=== PATIENT | female | born 1945 | race Caucasian/White ===

== ENCOUNTER → 2017-03-07 | Outpatient (CLI) | payer MEDICARE ==
[~2017-03-07] MED LIST: 2% Viscous Xylocaine MT; AMLO2.5T PO; AMLO5TAB2 PO; AMOX250S5 PO; ATEN50TA PO; CALC1TAB PO; CALTRATE 600 +1 EACH PO; CATHETER FLUSH 10 ML SYR IV PRN; CYAN250010 PO; DABI75CA3 PO; ENXP80I.8 SC; FISH OIL 500 M1 EACH PO; FLT05NA16 NS; FLT05NA16 NSEACH; FLT22013 INH; HYDR-3583 PO; HYDR15SO8 PO; LISI10TA2 PO; LORA10TA7 PO; MULT-223 PO; MULT-974 PO; MULT1TAB12 PO; OMEG1CAP51 PO; OMEP20TA2 PO; OMEP40CA36 PO; OMG1KC PO; REGADENOSON 0.4 MG/5 ML SYR (LEXISCAN) IV ONE; SIMV40TA4 PO; SMV20T PO; WARF-48 PO; WRF5T PO
[2017-03-07 13:05] VITALS: BP 154/74
[2017-03-07 13:09] VITALS: BP 135/54
[2017-03-07 13:11] VITALS: BP 153/71
--- NOTE | 2017-03-08 11:09 | ECHOCARDIOGRAPHY REPORT ---
DATE OF SERVICE: 03/07/2017 DATE OF PROCEDURE: 03/07/2017. ORDERING PHYSICIAN: Rosey Mulligan APRN. PRIMARY CARE PHYSICIAN: Dr. Arias. OTHER PHYSICIAN: Dr. Dorman. CLINICAL DIAGNOSES: Coronary artery disease, atrial fibrillation, hypertension. MEASUREMENTS: 1. Left atrium 5. 2. Aortic root 3.1. 3. LV diameter, diastolic 3.6. 4. IVS thickness, diastolic 0.9. 5. LVPW thickness, diastolic 0.9. DESCRIPTION: Two-dimensional echocardiography shows normal global left ventricular systolic function with normal regional wall motion. There is no significant pericardial effusion. The aortic, mitral and tricuspid valve leaflets show good leaflet excursion. There is mild mitral annular calcification. There is mild aortic valve sclerosis. There is marked enlargement of both atria. Doppler imaging shows moderate tricuspid regurgitation. Pulmonary artery systolic pressure is estimated to approximately 40-45 mmHg. Doppler imaging shows mild to moderate mitral regurgitation. There is no Doppler evidence of any significant valvular stenosis. Doppler imaging shows trivial to mild aortic regurgitation. There is no evidence of significant intracardiac shunt on this transthoracic echocardiographic study. Inferior vena cava does not appear to be significantly dilated. CONCLUSIONS: 1. Normal global left ventricular systolic function with ejection fraction approximately 60%. 2. Moderate tricuspid regurgitation. 3. Mild to moderate mitral regurgitation. 4. Trivial to mild aortic regurgitation. 5. Mitral annular calcification and aortic valve sclerosis, mild, without evidence of significant valvular stenosis. 6. Pulmonary artery systolic pressure is estimated to be 40-45 mmHg. 7. Biatrial enlargement. Job ID: [id number] DocumentID: [id number] Dictated Date: 03/07/2017 18:31:45 [employer] Date: 03/08/2017 10:24:18 Dictated By: CLAUDIA DORMAN MD, MA, FACP, FACC,
== END ==
LOC: CARD 09:37
PROVIDERS: ATTEND Nurse Practitioner Family
DX: I25.10 Atherosclerotic heart disease of native coronary artery without angina pectoris (principal); I48.2 Chronic atrial fibrillation; I65.23 Occlusion and stenosis of bilateral carotid arteries; I10 Essential (primary) hypertension; Z79.01 Long term (current) use of anticoagulants
CPT/HCPCS: 78452; 93017; 93306

== ENCOUNTER 2018-08-16 14:13 | Outpatient (CLI) | payer MEDICARE ==
[~2018-08-16] VITALS: Ht 144.8 cm; Wt 49.4 kg
[~2018-08-16 14:13] MED LIST changes: +AMLO2.5T3 PO; -CATHETER FLUSH 10 ML SYR IV PRN; -REGADENOSON 0.4 MG/5 ML SYR (LEXISCAN) IV ONE
[2018-08-16] MEDS ORDERED: ATEN50TA PO (14:41)
[2018-08-16] MEDS ORDERED: WARF-48 PO ×2 (14:43→15:20)
[2018-08-16] MEDS ORDERED: WARF7.5T49 PO (14:43)
[2018-08-16 14:49] VITALS: BP 125/64
[2018-08-16] MEDS ORDERED: AMOX-358 PO (15:20)
[2018-08-16] MEDS ORDERED: FLUT9.9S NSEACH (15:20)
[2018-08-16] MEDS ORDERED: ASPI-586 PO (15:32)
== END 2018-08-16 14:55 | disposition home or self-care (01) ==
LOC: PREOP 14:13
PROVIDERS: ATTEND Specialist
DX: Z01.818 Encounter for other preprocedural examination (principal)
CPT/HCPCS: 87081

== ENCOUNTER 2018-08-20 08:26 | Day surgery (SDC) | payer MEDICARE ==
[~2018-08-20] VITALS: Ht 144.8 cm; Wt 49.4 kg
[~2018-08-20 08:26] MED LIST changes: +AMOX-358 PO; +ASPI-586 PO; +FLUT9.9S NSEACH; +WARF7.5T49 PO
--- OUTSIDE RECORDS SUMMARY | 2018-08-20 08:32 | XMS REPORT | Clinical Summary ---
Author Author [facility] Organization [facility] Address Unknown Phone Unavailable Care Team Providers Care Tram Driver Name Role Phone Hyacinth Arias PCP Source Comments Some departments are not documenting in the electronic medical record. If you do not see the information that you expected, contact Release of Information in the Health Information Management department at [phone] for further assistance in locating additional records.[facility] Allergies No Known Allergies Current Medications Prescription Sig. Disp. Refills Start End Date Status Date atenolol (TENORMIN) 50 mg Take 50 mg by mouth Active tablet daily. lisinopril (PRINIVIL; Take 10 mg by mouth Active ZESTRIL) 10 mg tablet daily. fluticasone (FLONASE) 50 Apply 2 sprays to each Active mcg/actuation nasal spray nostril as directed daily. Shake bottle gently before using. calcium carbonate-vitamin Take 1 tablet by mouth Active D3 (CALTRATE WITH VITAMIN daily. D3) 600 mg(1,500mg) -800 unit tab cyanocobalamin 1,000 mcg Take 1,000 mcg by mouth Active tablet daily. vitamins, multiple cap Take 1 capsule by mouth Active daily. fish oil- omega 3-DHA/EPA Take 1 capsule by mouth Active 300/1,000 mg capsule daily. aspirin EC 81 mg tablet Take 81 mg by mouth Active daily. Take with food. warfarin (COUMADIN) 5 mg 5mg on Wed and Fri 7.5mg Active tablet on Sun, Mon, Tues, Thur, Sat omeprazole DR(+) Take 40 mg by mouth daily Active (PRILOSEC) 40 mg capsule before breakfast. loratadine (CLARITIN) 10 Take 10 mg by mouth every Active mg tablet morning. simvastatin (ZOCOR) 40 mg Take 40 mg by mouth at Active tablet bedtime daily. acetaminophen (TYLENOL) 20.3 mL by Per NG tube 240 mL 0 07/24/20 Active 160 mg/5 mL oral solution route every 4 hours. Max 18 of 4,000 mg of acetaminophen in 24 hours. oxyCODONE (ROXICODONE) 1 5-15 mL by Per NG tube 500 mL 0 07/24/20 Active mg/mL oral solution route every 4 hours as 18 needed Earliest Fill Date: 07/24/18 docusate (COLACE) 50 mg/5 10 mL by Per NG tube 500 mL 0 07/24/20 Active mL oral solution route twice daily. 18 amoxicillin/K clavulanate Take one tablet by mouth 20 tablet 0 08/24/20 Active (AUGMENTIN) 875/125 mg twice daily for 10 days. 18 18 tablet Take with food. HYDROcodone/acetaminophen Take 1 tablet by mouth 07/24/20 Discontin (NORCO) 5/325 mg tablet every 6 hours as needed 18 ued for Pain levoFLOXacin (LEVAQUIN) Take 20 mL by mouth every 200 mL 0 07/31/20 08/10/20 25 mg/mL oral solution 24 hours for 10 days. 18 18 Active Problems Problem Noted Date S/P flap graft 07/31/[address] ([facility]) 07/31/2018 Anemia associated with acute blood loss 07/20/2018 Dysphagia 07/20/2018 Acid reflux 07/19/2018 A-fib ([facility]) 07/19/2018 HTN (hypertension) 07/19/2018 Squamous cell carcinoma 07/17/2018 Tongue cancer ([facility]) 07/02/2018 Encounters Date Type Specialty Care Team Description 08/14/2018 Hospital Radiology Adithya Cook PA-C Arrived Encounter 08/14/2018 Office Visit Otolaryngology Adithya Cook PA-C Shoulder weakness (Primary Dx); Oropharyngeal dysphagia; Squamous cell carcinoma; S/P flap graft; Tracheostomy in place ([facility]) 08/14/2018 Clinical Otolaryngology Alis Ray, Tongue cancer ( [facility]); Support [employer] Oropharyngeal dysphagia 08/01/2018 Telephone Oncology Dolores Mc RN Navigation Follow Up 08/01/2018 Telephone Otolaryngology Adithya Cook PA-C Other (Speak to Nurse) 07/31/2018 Office Visit Otolaryngology Adithya Cook PA-C Oropharyngeal dysphagia (Primary Dx); Tongue cancer (HCC); S/P flap graft; Tracheostomy in place (HCC) 07/30/2018 Telephone Otolaryngology Adithya Cook PA-C Other 07/25/2018 Telephone Otolaryngology Radha Alexandre MD Other 07/24/2018 Office Visit Radiation Therapy Michael Landeros MD Tongue cancer (HCC) (Primary Dx) 07/18/2018 Anesthesia De Gonzales MD Event 07/18/2018 Procedure Pass 07/18/2018 Surgery Radha Alexandre MD EXPLORATION POSTOPERATIVE WOUND - NECK 07/17/2018 Hospital Isaac Flores MD Squamous cell carcinoma - Encounter Radha Alexandre MD 07/24/2018 07/17/2018 Procedure Pass 07/17/2018 Surgery Isaac Flores MD CERVICAL LYMPHADENECTOMY 06/27/2018 PAC Office Anesthesiology Isaac Flores MD Atrial fibrillation, Visit persistent (HCC) (Primary Dx) 06/27/2018 Office Visit Otolaryngology Isaac Flores MD Tongue cancer (HCC) 06/27/2018 Anesthesia Catrachita Heck APRN-ARCADE ATTENDANT Event 06/27/2018 Prep for Case Otolaryngology Isaac Flores MD Oral cancer (HCC) (Primary Dx) 06/15/2018 Ancillary Radiology Outpatient, Radiologist Diagnosis unknown Orders 2018 Hospital Radiology Encounter 2018 Hospital Radiology Encounter 06/06/2018 Telephone Oncology Sharee Mcknight RN Navigation Assessment from Last 3 Months Social History Tobacco Use Types Packs/Day Years Used Date Former Smoker Cigarettes 1.5 50 Quit: 06/27/2008 Smokeless Tobacco: Never Used Alcohol Use Drinks/Week oz/Week Comments Yes 4 Cans of 2.4 beer Sex Assigned at Date Recorded Not on file Last Filed Vital Signs Vital Sign Reading Time Taken Blood Pressure 117/54 08/14/2018 10:06 AM CDT Pulse 59 08/14/2018 10:06 AM CDT Temperature 36.5 C (97.7 F) 07/24/2018 10:01 AM CDT Respiratory Rate - - Oxygen Saturation 97% 07/24/2018 10:01 AM CDT Inhaled Oxygen - - Concentration Weight 50.8 kg (112 lb) 08/14/2018 10:06 AM CDT Height 144.8 cm (4' 9") 08/14/2018 10:06 AM CDT Body Mass Index 24.24 08/14/2018 10:06 AM CDT Plan of Treatment Health Maintenance Due Date Last Done Comments HEPATITIS C SCREENING 1945 PHYSICAL (COMPREHENSIVE) 1952 EXAM PERTUSSIS VACCINE 1956 TETANUS VACCINE 1962 BREAST CANCER SCREENING 1985 COLORECTAL CANCER 1995 SCREENING SHINGLES RECOMBINANT 1995 VACCINE (1 of 2) OSTEOPOROSIS SCREENING 2010 PNEUMONIA (PCV13/PPSV23) 2010 VACCINES (1 of 2 - PCV13) INFLUENZA VACCINE 05/23/2018 Implants Implanted Type Area Hvac Lead Device Expiration Model / Identifier Date Serial / Lot Anesthesiologist Anastomosis 3mm 1 Unit Right: SYNOVIS MICRO 03/29/2023 GEM- [id number] / Microvascular Fast Safe Gold - Neck [employer] [id number] / Implanted: Qty: 1 on 07/17/2018 by [id number] [place] [id number] Procedures Procedure Name Priority Date/Time Associated Diagnosis Comments SWALLOW MOTION SERIES Routine 08/14/2018 Oropharyngeal dysphagia Results for this 9:21 AM CDT procedure are in the results section. PATHOLOGY INTEROPERATIVE 08/08/2018 Results for this REPORT SCAN 12:02 PM CDT procedure are in the results section. ECG-SCAN 07/30/2018 Results for this 5:10 PM CDT procedure are in the results section. ECG-SCAN 07/25/2018 Results for this 11:52 AM CDT procedure are in the results section. TELEMETRY STRIPS-SCAN 07/25/2018 Results for this 11:52 AM CDT procedure are in the results section. PHOSPHORUS Routine 07/24/2018 Results for this 5:41 AM CDT procedure are in the results section. MAGNESIUM Routine 07/24/2018 Results for this 5:41 AM CDT procedure are in the results section. BASIC METABOLIC PANEL Routine 07/24/2018 Results for this 5:41 AM CDT procedure are in the results section. PROTIME INR (PT) Routine 07/24/2018 Results for this 5:41 AM CDT procedure are in the results section. PROTIME INR (PT) Routine 07/23/2018 Results for this 4:19 AM CDT procedure are in the results section. PROTIME INR (PT) Routine 07/22/2018 Results for this 5:19 AM CDT procedure are in the results section. PHOSPHORUS Routine 07/22/2018 Results for this 5:19 AM CDT procedure are in the results section. MAGNESIUM Routine 07/22/2018 Results for this 5:19 AM CDT procedure are in the results section. CBC Routine 07/22/2018 Results for this 5:19 AM CDT procedure are in the results section. BASIC METABOLIC PANEL Routine 07/22/2018 Results for this 5:19 AM CDT procedure are in the results section. PROTIME INR (PT) Routine 07/21/2018 Results for this 11:29 AM CDT procedure are in the results section. PHOSPHORUS Routine 07/21/2018 Results for this 5:32 AM CDT procedure are in the results section. MAGNESIUM Routine 07/21/2018 Results for this 5:32 AM CDT procedure are in the results section. BASIC METABOLIC PANEL Routine 07/21/2018 Results for this 5:32 AM CDT procedure are in the results section. CBC Routine 07/21/2018 Results for this 5:32 AM CDT procedure are in the results section. IR GASTROSTOMY Routine 07/20/2018 Results for this 2:06 PM CDT procedure are in the results section. PHOSPHORUS Routine 07/20/2018 Results for this 4:06 AM CDT procedure are in the results section. MAGNESIUM Routine 07/20/2018 Results for this 4:06 AM CDT procedure are in the results section. BASIC METABOLIC PANEL Routine 07/20/2018 Results for this 4:06 AM CDT procedure are in the results section. CBC Routine 07/20/2018 Results for this 4:06 AM CDT procedure are in the results section. CBC Routine 07/19/2018 Results for this 11:41 AM CDT procedure are in the results section. TRANSFUSE RBC'S Routine 07/19/2018 NON-BLEEDING PT 9:43 AM CDT PHOSPHORUS Routine 07/19/2018 Results for this 4:11 AM CDT procedure are in the results section. MAGNESIUM Routine 07/19/2018 Results for this 4:11 AM CDT procedure are in the results section. BASIC METABOLIC PANEL Routine 07/19/2018 Results for this 4:11 AM CDT procedure are in the results section. CBC Routine 07/19/2018 Results for this 4:11 AM CDT procedure are in the results section. EXPLORATION POSTOPERATIVE 07/18/2018 Tongue cancer (HCC) WOUND - NECK 8:30 AM CDT TRANSFUSE RBC'S Routine 07/18/2018 NON-BLEEDING PT 8:09 AM CDT PHOSPHORUS Routine 07/18/2018 Results for this 4:00 AM CDT procedure are in the results section. MAGNESIUM Routine 07/18/2018 Results for this 4:00 AM CDT procedure are in the results section. BASIC METABOLIC PANEL Routine 07/18/2018 Results for this 4:00 AM CDT procedure are in the results section. CBC Routine 07/18/2018 Results for this 4:00 AM CDT procedure are in the results section. CBC STAT 07/18/2018 Results for this 12:10 AM CDT procedure are in the results section. ABDOMEN AP ONLY STAT 07/17/2018 Results for this 11:42 PM CDT procedure are in the results section. POTASSIUM, BG STAT 07/17/2018 Results for this 7:09 PM CDT procedure are in the results section. SODIUM,BG STAT 07/17/2018 Results for this 7:09 PM CDT procedure are in the results section. IONIZED CALCIUM,BG STAT 07/17/2018 Results for this 7:09 PM CDT procedure are in the results section. GLUCOSE,BG STAT 07/17/2018 Results for this 7:09 PM CDT procedure are in the results section. BLOOD GASES, ARTERIAL STAT 07/17/2018 Results for this 7:09 PM CDT procedure are in the results section. HEMOGLOBIN & HEMATOCRIT, STAT 07/17/2018 Results for this BG 7:09 PM CDT procedure are in the results section. POTASSIUM, BG STAT 07/17/2018 Results for this 3:58 PM CDT procedure are in the results section. SODIUM,BG STAT 07/17/2018 Results for this 3:58 PM CDT procedure are in the results section. IONIZED CALCIUM,BG STAT 07/17/2018 Results for this 3:58 PM CDT procedure are in the results section. GLUCOSE,BG STAT 07/17/2018 Results for this 3:58 PM CDT procedure are in the results section. BLOOD GASES, ARTERIAL STAT 07/17/2018 Results for this 3:58 PM CDT procedure are in the results section. HEMOGLOBIN & HEMATOCRIT, STAT 07/17/2018 Results for this BG 3:58 PM CDT procedure are in the results section. SURGICAL PATHOLOGY 07/17/2018 Results for this 9:13 AM CDT procedure are in the results section. ANESTHESIA ARTERIAL LINE Routine 07/17/2018 Results for this INSERTION 9:08 AM CDT procedure are in the results section. PTT (APTT) Routine 07/17/2018 Results for this 8:08 AM CDT procedure are in the results section. PROTIME INR (PT) Routine 07/17/2018 Results for this 8:08 AM CDT procedure are in the results section. CBC AND DIFF Routine 07/17/2018 Results for this 8:08 AM CDT procedure are in the results section. PHARYNGOPLASTY 07/17/2018 Oral cancer (HCC) 8:00 AM CDT TISSUE TRANSFER MUSCLE/ 07/17/2018 Oral cancer (HCC) MYOCUTANEOUS/ 8:00 AM CDT FASCIOCUTANEOUS FLAP WITH VASCULAR PEDICLE - HEAD/ NECK TISSUE TRANSFER FREE 07/17/2018 Oral cancer (HCC) FASCIAL FLAP WITH 8:00 AM CDT MICROVASCULAR ANASTOMOSIS TISSUE TRANSFER FREE 07/17/2018 Oral cancer (HCC) FASCIAL FLAP WITH 8:00 AM CDT MICROVASCULAR ANASTOMOSIS GLOSSECTOMY/ 07/17/2018 Oral cancer (HCC) HEMIGLOSSECTOMY 8:00 AM CDT CERVICAL LYMPHADENECTOMY 07/17/2018 Oral cancer (HCC) 8:00 AM CDT TYPE & CROSSMATCH STAT 07/17/2018 Atrial fibrillation, Results for this 7:31 AM CDT persistent (HCC) procedure are in the results section. BASIC METABOLIC PANEL STAT 07/17/2018 Results for this 7:31 AM CDT procedure are in the results section. TYPE & SCREEN (NOT Routine 06/27/2018 Atrial fibrillation, Results for this CROSSMATCH ELIGIBLE) 2:02 PM CDT persistent (HCC) procedure are in the results section. BASIC METABOLIC PANEL Routine 06/27/2018 Atrial fibrillation, Results for this 2:02 PM CDT persistent (HCC) procedure are in the results section. CBC Routine 06/27/2018 Atrial fibrillation, Results for this 2:02 PM CDT persistent (HCC) procedure are in the results section. NM PET/CT EXTERNAL Routine 2018 Diagnosis unknown Results for this IMAGING 12:15 AM CDT procedure are in the results section. CT CHEST EXTERNAL IMAGING Routine 2018 Diagnosis unknown Results for this 12:00 AM CDT procedure are in the results section. from Last 3 Months Results * SWALLOW MOTION SERIES (08/14/2018 9:21 AM) Impressions Performed At 1. Episodes of laryngeal penetration without evidence of aspiration. [facility] RESULTS 2. Please see separately dictated report from the Department of Speech Pathology for further description. Approved by Madina Baez M.D. on 08/14/2018 1:24 PM By my electronic signature, I attest that I have personally reviewed the images for this examination and formulated the interpretations and opinions expressed in this report Finalized by Judith Morales M.D. on 08/14/2018 5:18 PM. Dictated by Madina Baez M.D. on 08/14/2018 10:33 AM. Narrative Performed At SWALLOW MOTION SERIES [facility] RESULTS CLINICAL HISTORY: 73-year-old female, oropharyngeal dysphasia. TECHNIQUE: The procedure was performed in conjunction with members of the department of speech pathology. Video fluoroscopy was performed during swallowing of various consistencies of barium. The patient tolerated the procedure well and left the department in stable condition. TOTAL FLUOROSCOPY TIME: 132 seconds FINDINGS: Trace laryngeal penetration with thin and nectar barium. No aspiration was seen with various consistencies of barium throughout the exam. Procedure Note Interface, Radiant Results - 08/14/2018 5:21 PM CDT SWALLOW MOTION SERIES CLINICAL HISTORY: 73-year-old female, oropharyngeal dysphasia. TECHNIQUE: The procedure was performed in conjunction with members of the department of speech pathology. Video fluoroscopy was performed during swallowing of various consistencies of barium. The patient tolerated the procedure well and left the department in stable condition. TOTAL FLUOROSCOPY TIME: 132 seconds FINDINGS: Trace laryngeal penetration with thin and nectar barium. No aspiration was seen with various consistencies of barium throughout the exam. IMPRESSION 1. Episodes of laryngeal penetration without evidence of aspiration. 2. Please see separately dictated report from the Department of Speech Pathology for further description. Approved by Madina Baez M.D. on 08/14/2018 1:24 PM By my electronic signature, I attest that I have personally reviewed the images for this examination and formulated the interpretations and opinions expressed in this report Finalized by Judith Morales M.D. on 08/14/2018 5:18 PM. Dictated by Madina Baez M.D. on 08/14/2018 10:33 AM. Performing Organization Address City/[facility] Phone Number [facility] RESULTS * PATHOLOGY INTEROPERATIVE REPORT SCAN (08/08/2018 12:02 PM) Narrative Performed At Ordered by an unspecified provider. * ECG-SCAN (07/30/2018 5:10 PM) Narrative Performed At Ordered by an unspecified provider. * ECG-SCAN (07/25/2018 11:52 AM) Narrative Performed At Ordered by an unspecified provider. * TELEMETRY STRIPS-SCAN (07/25/2018 11:52 AM) Narrative Performed At Ordered by an unspecified provider. * PROTIME INR (PT) (07/24/2018 5:41 AM) Only the most recent of 5 results within the time period is included. INR 1.1 0.8 - 1.2 MAIN LAB Specimen Blood Performing Organization Address [facility] Phone Number MAIN LAB [address] [place] [address] * PHOSPHORUS (07/24/2018 5:41 AM) Only the most recent of 6 results within the time period is included. Phosphorus 3.9Comment: NOTE NEW REFERENCE 2.0 - 4.5 MG/DL MAIN LAB RANGES Specimen Blood Performing Organization Address [facility] Phone Number MAIN LAB [address] [place] [address] * MAGNESIUM (07/24/2018 5:41 AM) Only the most recent of 6 results within the time period is included. Magnesium 1.8 1.6 - 2.6 mg/dL MAIN LAB Specimen Blood Performing Organization Address [facility] Phone Number MAIN LAB [address] [place] [address] * BASIC METABOLIC PANEL (07/24/2018 5:41 AM) Only the most recent of 8 results within the time period is included. Sodium 131 (L) 137 - 147 MMOL/L MAIN LAB Potassium 4.4 3.5 - 5.1 MMOL/L MAIN LAB Chloride 99 98 - 110 MMOL/L [facility] MA[facility] CO2 25 21 - 30 MMOL/L [facility] MA[facility] Anion Gap 7 3 - 12 [facility] MA[facility] Glucose 110 (H) 70 - 100 MG/DL [facility] MAIN LAB Blood Urea Nitrogen 15 7 - 25 MG/DL [facility] MAIN [facility] Creatinine 0.51 0.4 - 1.00 MG/DL [facility] MAIN [facility] Calcium 8.6 8.5 - 10.6 MG/DL [facility] MAIN [facility] eGFR Non >60 >60 mL/min [facility] Comment: The eGFR is not validated for use in drug dosing adjustments.Continue to use estimated creatinine clearance per dosing reference text.Please contact the Clinical Pharmacist for questions. eGFR >60 >60 mL/min [facility] MAIN [facility] Comment: The eGFR is not validated for use in drug dosing adjustments.Continue to use estimated creatinine clearance per dosing reference text.Please contact the Clinical Pharmacist for questions. Specimen Blood Performing Organization Address City/[facility]/Zipcode Phone Number MAIN LAB [address] [place] [address] * CBC (07/22/2018 5:19 AM) Only the most recent of 8 results within the time period is included. White Blood Cells 6.7 4.5 - 11.0 K/UL [facility] MAIN [facility] RBC 2.90 (L) 4.0 - 5.0 M/UL [facility] MAIN [facility] Hemoglobin 9.3 (L) 12.0 - 15.0 GM/DL [facility] MAIN LAB Hematocrit 27.0 (L) 36 - 45 % [facility] MA[facility] MCV 93.0 80 - 100 FL [facility] MA[facility] MCH 32.0 26 - 34 PG [facility] MCHC 34.4 32.0 - 36.0 G/DL [facility] MAIN [facility] RDW 16.4 (H) 11 - 15 % [facility] MA[facility] Platelet Count 204 150 - 400 K/UL [facility] MAIN [facility] MPV 6.6 (L) 7 - 11 FL [facility] MAIN LAB Specimen Blood Performing Organization Address City/[facility]/Zipcode Phone Number MAIN LAB [address] [place] [address] * IR GASTROSTOMY (07/20/2018 2:06 PM) Impressions Performed At Impression: Gastrostomy feeding tube placement as described above. [facility] RESULTS Agustin Suazo M.D., the attending interventional radiologist, performed the entire procedure, personally reviewed the images, and formulated the interpretations and opinions expressed in this report. @TT Finalized by Agustin Kumar M.D. on 07/20/2018 2:23 PM. Dictated by Agustin Kumar M.D. on 07/20/2018 2:17 PM. Narrative Performed At G Tube placement under fluoroscopy and ultrasound [facility] RAD RESULTS Reason for examination: Dysphagia, long-term feeds needed, oral cancer Radiation dose: 38 mgy Contrast: 20 cc Isovue-300 Sedation: I was personally responsible for the administration of moderate sedation services during the procedure performed and I confirm requirements described in CPT section on moderate sedation were followed, including the use of an independent trained observer who had no other duties during the procedure.The total supervised sedation time was 10 minutes.See nursing log for complete details; the drugs utilized were:2 mg IV Versed, 50 mcg IV fentanyl Procedure: The risks benefits of the procedure explained and informed consent obtained. The patient was placed supine on the fluoroscopic table. The abdomen was prepped and draped in the usual sterile fashion. The left lateral margin of the liver was identified with ultrasound. This area was marked on the patient's skin. The stomach was insufflated with air through the patient's NG tube. The inferior body of the stomach was localized under fluoroscopic guidance. 2 % lidocaine was used to anesthetize the overlying soft tissues. Three gastroplastyneedles were placed in the stomach and the T-fasteners deployed. The stomach wall was then secured against the anterior abdominal wall. Next, a dermatotomy was then created with an 11-blade centrally within the gastroplasty sutures. An 18-gauge needle was then placed through the dermatotomy. A 0.035 Amplatz wire was then placed through the needle and curled in the stomach.A 14 Danish telescoping peel-away sheath was then placed over the wire and the tract dilated. Next, the gastrostomy tube was placed over the wire and through the sheath. The peel-awaysheath then removed. The gastrostomy tube balloon was inflated and pulled against the stomach wall. A small injection of contrast through the gastrostomy tube confirmed appropriate position within the stomach. The gastrostomy tube was then secured in place. The patient tolerated the procedure well and there were no complications. Findings: There is contrast within a nondistended colon from prior barium administration. Following insufflation of air, the colon is displaced downward from the stomach. Following G-tube placement, there is no evidence for contrast extravasation. The tube is positioned well within the lower body of the stomach. Procedure Note Interface, Radiant Results - 07/20/2018 2:26 PM CDT G Tube placement under fluoroscopy and ultrasound Reason for examination: Dysphagia, long-term feeds needed, oral cancer Radiation dose: 38 mgy Contrast: 20 cc Isovue-300 Sedation: I was personally responsible for the administration of moderate sedation services during the procedure performed and I confirm requirements described in CPT section on moderate sedation were followed, including the use of an independent trained observer who had no other duties during the procedure. The total supervised sedation time was 10 minutes. See nursing log for complete details; the drugs utilized were: 2 mg IV Versed, 50 mcg IV fentanyl Procedure: The risks benefits of the procedure explained and informed consent obtained. The patient was placed supine on the fluoroscopic table. The abdomen was prepped and draped in the usual sterile fashion. The left lateral margin of the liver was identified with ultrasound. This area was marked on the patient's skin. The stomach was insufflated with air through the patient's NG tube. The inferior body of the stomach was localized under fluoroscopic guidance. 2% lidocaine was used to anesthetize the overlying soft tissues. Three gastroplasty needles were placed in the stomach and the T-fasteners deployed. The stomach wall was then secured against the anterior abdominal wall. Next, a dermatotomy was then created with an 11-blade centrally within the gastroplasty sutures. An 18-gauge needle was then placed through the dermatotomy. A 0.035 Amplatz wire was then placed through the needle and curled in the stomach. A 14 Danish telescoping peel-away sheath was then placed over the wire and the tract dilated. Next, the gastrostomy tube was placed over the wire and through the sheath. The peel-away sheath then removed. The gastrostomy tube balloon was inflated and pulled against the stomach wall. A small injection of contrast through the gastrostomy tube confirmed appropriate position within the stomach. The gastrostomy tube was then secured in place. The patient tolerated the procedure well and there were no complications. Findings: There is contrast within a nondistended colon from prior barium administration. Following insufflation of air, the colon is displaced downward from the stomach. Following G-tube placement, there is no evidence for contrast extravasation. The tube is positioned well within the lower body of the stomach. IMPRESSION Impression: Gastrostomy feeding tube placement as described above. Agustin Suazo M.D., the attending interventional radiologist, performed the entire procedure, personally reviewed the images, and formulated the interpretations and opinions expressed in this report. @TT Finalized by Agustin Kumar M.D. on 07/20/2018 2:23 PM. Dictated by Agustin Kumar M.D. on 07/20/2018 2:17 PM. Performing Organization Address City/State/Zipcode Phone Number [facility] RAD RESULTS * ABDOMEN AP ONLY (07/17/2018 11:42 PM) Impressions Performed At Intragastric position of the tip of the De Leon type gastric tube. [facility] RESULTS Finalized by Ministerio Simon M.D. on 07/18/2018 8:44 AM. Dictated by Ministerio Simon M.D. on 07/18/2018 8:42 AM. Narrative Performed At Check ngt placement. [facility] RESULTS Technique: Single portable AP supine view of the abdomen was obtained. Comparison: No prior examinations are available.. Findings: The bowel gas pattern is nonobstructive. There is mild fecal retention in the transverse colon, sigmoid colon, and rectum. There is no significant small bowel dilatation. There are atherosclerotic calcifications of the abdominal aorta and iliac vessels. Degenerative changes are present at multiple levels in the lumbar spine. There is a mild left convex upper lumbar scoliosis. 2 surgical drains are present in the left chest wall. A De Leon type gastric tube is in place with its tip directed in the gastric fundus. Note is made of a right hip arthroplasty. There is a temperature probe projected over the low pelvis. Procedure Note Interface, Radiant Results - 07/18/2018 8:47 AM CDT Check ngt placement. Technique: Single portable AP supine view of the abdomen was obtained. Comparison: No prior examinations are available.. Findings: The bowel gas pattern is nonobstructive. There is mild fecal retention in the transverse colon, sigmoid colon, and rectum. There is no significant small bowel dilatation. There are atherosclerotic calcifications of the abdominal aorta and iliac vessels. Degenerative changes are present at multiple levels in the lumbar spine. There is a mild left convex upper lumbar scoliosis. 2 surgical drains are present in the left chest wall. A De Leon type gastric tube is in place with its tip directed in the gastric fundus. Note is made of a right hip arthroplasty. There is a temperature probe projected over the low pelvis. IMPRESSION Intragastric position of the tip of the De Leon type gastric tube. Finalized by Ministerio Simon M.D. on 07/18/2018 8:44 AM. Dictated by Ministerio Simon M.D. on 07/18/2018 8:42 AM. Performing Organization Address [facility] Phone Number RAD RESULTS * GLUCOSE,BG (07/17/2018 7:09 PM) Only the most recent of 2 results within the time period is included. Glucose 154 (H) 70 - 100 MG/DL MAIN LAB Specimen Blood Performing Organization Address [facility] Phone Number MAIN LAB [address] [phone] * SODIUM,BG (07/17/2018 7:09 PM) Only the most recent of 2 results within the time period is included. Sodium 133 (L) 137 - 147 MMOL/L MAIN LAB Specimen Blood Performing Organization Address [facility] Phone Number MAIN LAB [address] [place] [address] * POTASSIUM, BG (07/17/2018 7:09 PM) Only the most recent of 2 results within the time period is included. Potassium 3.8 3.5 - 5.1 MMOL/L MAIN LAB Specimen Blood Performing Organization Address [facility] Phone Number MAIN LAB [address] [place] [address] * IONIZED CALCIUM,BG (07/17/2018 7:09 PM) Only the most recent of 2 results within the time period is included. Ionized Calcium 1.08 1.0 - 1.3 MMOL/L MAIN LAB Specimen Blood Performing Organization Address [facility] Phone Number MAIN LAB [address] [place] [address] * HEMOGLOBIN & HEMATOCRIT, BG (07/17/2018 7:09 PM) Only the most recent of 2 results within the time period is included. Hemoglobin BG 9.0 (L) 12.0 - 15.0 GM/DL [facility] Hematocrit BG 27.8 (L) 36 - 45 % [facility] Specimen Blood Performing Organization Address City/[facility]/Zipcode Phone Number [facility] [address] [phone] * BLOOD GASES, ARTERIAL (07/17/2018 7:09 PM) Only the most recent of 2 results within the time period is included. pH-Arterial 7.43 7.35 - 7.45 [facility] pCO2-Arterial 32 (L) 35 - 45 MMHG [facility] pO2-Arterial 172 (H) 80 - 100 MMHG [facility] Base Deficit-Arterial 2.4 MMOL/L [facility] O2 Sat-Arterial 99.1 (H) 95 - 99 % [facility] Vorootivzom-KNW-Tce 22.4 21 - 28 MMOL/L [facility] Specimen Blood, arterial - Blood Performing Organization Address City/[facility]/Zipcode Phone Number [facility] [address] [phone] * SURGICAL PATHOLOGY (07/17/2018 9:13 AM) PATHOLOGY REPORT [facility] [employer] [facility] [email or web address] Department of Pathology and Laboratory Medicine [address] [place] [address] Surgical Pathology Office:[phone] :[phone] SURGICAL PATHOLOGY REPORT NAME: YEIMY LIMA SURG PATH #: [id number] MR #: [id number] SPECIMEN CLASS: [facility] BILLING #: [id number] ALT ID #:LOCATION: [facility] DATE OF PROCEDURE: 07/17/2018 AGE:73 SEX: F DATE RECEIVED: 07/17/2018 : 1945TIME RECEIVED:: PHYSICIAN: ISAAC FLORES MD DATE OF REPORT: 07/22/2018 COPY TO: RADHA ALEXANDRE DATE OF PRINTIN07/22/2018 ############################## ############################## ############ Final Diagnosis: A. Squamous mucosa, "anterior dorsal tongue mm", excision: Negative for malignancy. B. Squamous mucosa, "posterior dorsal tongue mm", excision: Negative for malignancy. C. Squamous mucosa, "posterior floor of mouth mm", excision: Negative for malignancy. D. Squamous mucosa, "anterior floor of mouth mm", excision: Negative for malignancy. E. Squamous mucosa, "ventral tongue mm", excision: Negative for malignancy. F. Skeletal muscle, "deep margin", excision: Negative for malignancy. G. 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 Margins negative for malignancy. See synoptic report below. H. Lymph nodes (4) and salivary gland, "left level 1 neck", lymph node dissection: There is no evidence of malignancy in four lymph nodes (0/4). Benign submandibular gland. I. Lymph nodes (27), "left neck dissection levels 2,3,4", lymph node dissection: There is no evidence of malignancy in twenty seven lymph nodes (0/27). J. Lymph nodes (3) and salivary gland, "right level 1 neck", lymph node dissection: There is no evidence of malignancy in three lymph nodes (0/3). Benign submandibular gland. K. Lymph nodes (22), "right neck dissection levels 2,3,4", lymph node dissection: There is no evidence of malignancy in twenty-two lymph nodes (0/22). Comment: LIP AND ORAL CAVITY: Excisional Biopsy, Resection CAP Version: Lip Oral Cavity 4.0.0.0 Procedure: Glossectomy (specify): hemiglossectomy Neck (lymph node) dissection (specify): Bilateral neck lymph node dissection, levels 1-4 Tumor Site: Oral Lateral border of tongue (anterior) Tumor Laterality: Left Tumor Focality: Unifocal Tumor Size: Greatest dimension (centimeters): 4.1 cm Additional dimensions (centimeters):3.1 x 1.3 cm Tumor Depth of Invasion (DOI) (millimeters): 8 mm Histologic Type: Squamous Cell Carcinoma, conventional Histologic Grade: G2:Moderately differentiated Tumor Extension Specify: Tumor invades into skeletal muscle of tongue Specimen Margins: Margins on the main composite resection specimen Uninvolved by invasive tumor Distance from closest margin (millimeters):3 mm Specify location of closest margin, per orientation, if possible:Deep Other close margins:All other margins >3mm Uninvolved by high-grade dysplasia/in situ disease Tumor Bed (Separately Submitted) Margins: Uninvolved by invasive tumor Tumor Bed (Separately Submitted) Margin Orientation: Unoriented to true margin surface Lymphovascular Invasion: Not identified Perineural Invasion: Present, intratumoral nerves Worst Pattern of Invasion (WPOI): WPOI 1-4 Lymph Node Examination: Number of Lymph Nodes Involved: 0 Number of Lymph Nodes Examined: 56 Pathologic Stage Classification (pTNM, AJCC 8th Edition): [id number]/ Note: Reporting of pT, pN, and (when applicable) pM categories is based on information available to the pathologist at the time the report is issued. Primary Tumor (pT): pT3:Tumor greater than 4 cm, or any tumor greater than 10 mm DOI Regional Lymph Nodes (pN): pN0: No regional lymph node metastasis Additional Pathologic Findings (select all that apply): Focal acute inflammation Ancillary Studies: None The pathologic stage assigned here should be regarded as provisional, as it reflects only current pathologic data and does not incorporate full knowledge of the patient's clinical status and/or prior pathology. Pursuant to the Support Technician Program at the [facility] Pathology Department, selected slides from this case have been concurrently reviewed by the following pathologist: Dr. Downs, who agrees with the final diagnosis. Attestation: By this signature, I attest that I have personally formulated the final interpretation expressed in this report and that the above diagnosis is based upon my examination of the slides and/or other material indicated in this report. +++ +++ Momo Coello MD Resident lkr/07/17/2018 ############################## ############################## ############ Material Received: A: anterior dorsal tongue mm B: posterior dorsal tongue mm C: posterior floor of mouth mm D: anterior floor of mouth mm E: ventral tongue mm F: deep margin G: left hemiglossectomy; short stitch=anterior, long stitch=dorsal H: left level 1 neck I: left neck dissection levels 2,3,4 J: right level 1 neck K: right neck dissection levels 2,3,4 History: 73-year-old female with a history of oral cancer. Gross Description: A.Received fresh labeled with the patient's name and "anterior dorsal tongue MM" is a 3.3 x 0.5 x 0.5 cm irregular piece of potts-pink tissue. The specimen is entirely submitted in cassette A1FS for frozen and permanent sectioning. ([facility]) B. Received fresh labeled with the patient's name and "posterior dorsal tongue MM" is a 3.4 x 0.8 x 0.5 cm irregular piece of potts-pink tissue. The specimen is bisected and is entirely submitted in cassette B1FS for frozen and permanent sectioning. ([facility]) C. Received fresh labeled with the patient's name and "posterior floor mouth MM" is a 1.3 x 0.9 x 0.5 cm irregular piece of potts-pink tissue. The specimen is entirely submitted in cassette C1FS for frozen and permanent sectioning. ([facility]) D. Received fresh labeled with the patient's name and "anterior floor mouth MM" is a 0.6 x 0.4 x 0.3 cm irregular piece of potts-pink tissue. The specimen is entirely submitted in cassette D1FS for frozen and permanent sectioning. ([facility]) E. Received fresh labeled with the patient's name and "ventral tongue MM" is a 2.5 x 0.5 x 0.3 cm aggregate of potts-pink tissue. The specimen is entirely submitted in cassette E1FS for frozen and permanent sectioning. ([facility]) F. Received fresh labeled with the patient's name and "deep margin" is a 0.5 x 0.5 x 0.4 cm irregular piece of potts-pink tissue. The specimen is entirely submitted in cassette F1FS for frozen and permanent sectioning. ([facility]) G. Received fresh, labeled with the patient's name and "left hemiglossectomy; short stitch=anterior, long stitch=dorsal" is a hemiglossectomy specimen with a short stitch designating "anterior" and a long stitch designating "dorsal". The short stitch designating anterior will correlate to 12:00 and the long stitch designating dorsal will correlate to 3:00. Lesion measurement: 4.1 x 3.1 cm. Lesion appearance: Red-brown, granular and ulcerative. Lesion distance to margin: 1.0 cm from 12:00 0.8 cm from 3:00 0.6 cm from 6:00 0.8 cm from 9:00 0.1 cm from deep The specimen is inked as follows: 12:00 to 3:00 - blue 3:00 to 6:00 - yellow 6:00 to 9:00 - green 9:00 to 12:00 - orange Deep - black The specimen is serially sectioned from 12:00 to 6:00 reveal a lesion depth of 1.3 cm. A portion of the specimen is sent to [facility]. The entire specimen is submitted as follows: G1 12:00 margin, serially sectioned. G2-G9 Body of specimen submitted sequentially (G6-G7 is one slice bisected). G10 6:00 margin, serially sectioned. (t) H. Received fresh labeled with the patient's name and "left level 1 neck" is a 5.5 x 3.3 x 1.2 cm aggregate of yellow-potts tissue palpated to reveal a 6 g, 4.2 x 2.9 x 1.5 cm grossly consistent submandibular gland. Also identified are multiple possible lymph nodes, ranging in size from 0.6 x 0.5 x 0.5 cm up to 2.5 x 1.2 x 0.9 cm. arborist representative sections of the specimen are submitted as follows: H1-H2 Grossly consistent submandibular gland. H3 One possible lymph node, submitted whole. H4 Two possible lymph nodes, bisected (one possible lymph node differentially inked black). H5-H6 One possible lymph node, serially sectioned. ([facility]) I. Received fresh labeled with the patient's name and "left neck dissection levels 2, 3, 4" is a 4.9 x 2.5 x 1.2 cm aggregate of yellow-potts tissue palpated to reveal multiple possible lymph nodes, ranging in size from 0.3 x 0.3 x 0.3 cm up to 1.7 x 1.0 x 0.7 cm. The specimen is submitted entirely as follows: I1 Six possible lymph nodes, submitted whole. I2 Six possible lymph nodes, submitted whole. I3 Four possible lymph nodes, submitted whole. I4 Three possible lymph nodes, bisected (two possible lymph nodes differentially inked black and blue). I5 Two possible lymph nodes, bisected (one possible lymph node differentially inked black. I6-I7 Remainder of fibroadipose tissue and possible lymph nodes. ([facility]) J. Received fresh labeled with the patient's name and "right level 1 neck" is a 4.5 x 4.2 x 1.2 cm aggregate of yellow-potts tissue palpated to reveal a 7 gram, 4.2 x 3.2 x 1.4 cm grossly consistent submandibular gland. Also identified are multiple possible lymph nodes, ranging in size from 0.6 x 0.4 x 0.4 cm up to 1.3 x 1.1 x 0.7 cm. Labor Service Representative sections of the specimen are submitted as follows: J1-J2 Grossly consistent submandibular gland. J3 Three possible lymph nodes, submitted whole. J4 One possible lymph node, bisected. J5 Fibroadipose tissue and possible lymph nodes submitted entirely. ([facility]) K. Received fresh labeled with the patient's name and "right neck dissection levels 2, 3, and 4" is a 5.7 x 4.4 x 0.7 cm aggregate of yellow-potts tissue palpated to reveal multiple possible lymph nodes ranging in size from 0.3 x 0.3 x 0.3 cm up to 1.5 x 0.7 x 0.7 cm. The specimen is submitted entirely as follows: K1 Six possible lymph nodes, submitted whole. K2 Six possible lymph nodes, submitted whole. K3 Five possible lymph nodes, submitted whole. K4 Three possible lymph nodes, bisected (two possible lymph nodes differentially inked black and blue). K5 One possible lymph node, trisected. K6-K7 Remainder of fibroadipose tissue and possible lymph nodes. ([facility]) [facility]/07/17/2018 Intraoperative Consultation: A1FS, squamous mucosa, "anterior dorsal tongue MM", biopsy: Negative for malignancy. B1FS, squamous mucosa, "posterior dorsal tongue MM", biopsy: Negative for malignancy. C1FS, squamous mucosa, "posterior floor mouth MM", biopsy: Negative for malignancy. D1FS, squamous mucosa, "anterior floor mouth MM", biopsy: Negative for malignancy. E1FS, squamous mucosa, "ventral tongue MM", biopsy: Negative for malignancy. F1FS, skeletal muscle, "deep margin", biopsy: Negative for malignancy. [facility] [address] [place] [address]. Alyssa Palencia MD Performing Organization Address City/State/Zipcode Phone Number [facility] RESULTS * ANESTHESIA ARTERIAL LINE INSERTION (07/17/2018 9:08 AM) Narrative Performed At Reddy Yadav MD 07/17/20189:23 AM Anesthesia Procedure: Arterial Line Placement A-LINE INSERTION Date/Time: 07/17/2018 8:20 AM Patient location: OR Indications: frequent labs and hemodynamic monitoring Preprocedure checklist performed: 2 patient identifiers, risks & benefits discussed, patient evaluated, consent obtained and patient being monitored Sterile technique: - Proper hand washing - Cap, mask - Sterile gloves - Skin prep for antisepsis Arterial Line Procedure Patient sedated: yes (see MAR) Sedation type: general; Artery prepped with chlorhexidine; skin prep agent completely dried prior to procedure. Location: radial artery Laterality: right Technique: palpation Needle gauge: 22 G Number of attempts: 1 Procedure Outcome Catheter secured with adhesive dressing applied Events: no complications noted during insertion and skin intact, warm, and dry Observation: pt tolerated well Additional notes: ATTESTATION I was present during the entire procedure performed by a resident. Staff name:Reddy Yadav MD Date:07/17/2018 Performed by: KAIN PRADHAN Authorized by: REDDY YADAV Procedure Note Reddy Yadav MD - 07/17/2018 9:08 AM CDT Anesthesia Procedure: Arterial Line Placement A-LINE INSERTION Date/Time: 07/17/2018 8:20 AM Patient location: OR Indications: frequent labs and hemodynamic monitoring Preprocedure checklist performed: 2 patient identifiers, risks & benefits discussed, patient evaluated, consent obtained and patient being monitored Sterile technique: - Proper hand washing - Cap, mask - Sterile gloves - Skin prep for antisepsis Arterial Line Procedure Patient sedated: yes (see MAR) Sedation type: general; Artery prepped with chlorhexidine; skin prep agent completely dried prior to procedure. Location: radial artery Laterality: right Technique: palpation Needle gauge: 22 G Number of attempts: 1 Procedure Outcome Catheter secured with adhesive dressing applied Events: no complications noted during insertion and skin intact, warm, and dry Observation: pt tolerated well Additional notes: ATTESTATION I was present during the entire procedure performed by a resident. Staff name: Reddy Yadav MD Date: 07/17/2018 Performed by: KAIN PRADHAN Authorized by: REDDY YADAV * PTT (APTT) (07/17/2018 8:08 AM) APTT 22.6Comment: NOTE NEW 20.0 - 36.0 SEC [facility] MA[facility] REFERENCE RANGES Specimen Blood Performing Organization Address City/[facility] Phone Number MA[facility] LAB [address] [place] [address] * CBC AND DIFF (07/17/2018 8:08 AM) White Blood Cells 5.5 4.5 - 11.0 K/UL [facility] RBC 3.79 (L) 4.0 - 5.0 M/UL [facility] Hemoglobin 11.8 (L) 12.0 - 15.0 GM/DL [facility] Hematocrit 35.2 (L) 36 - 45 % [facility] MCV 92.8 80 - 100 FL [facility] MCH 31.1 26 - 34 PG [facility] MCHC 33.5 32.0 - 36.0 G/DL [facility] RDW 15.6 (H) 11 - 15 % [facility] Platelet Count 163 150 - 400 K/UL [facility] MPV 7.5 7 - 11 FL [facility] Neutrophils 69 41 - 77 % [facility] Lymphocytes 20 (L) 24 - 44 % [facility] Monocytes 7 4 - 12 % [facility] Eosinophils 3 0 - 5 % [facility] Basophils 1 0 - 2 % [facility] Absolute Neutrophil Count 3.80 1.8 - 7.0 K/UL [facility] Absolute Lymph Count 1.10 1.0 - 4.8 K/UL [facility] Absolute Monocyte Count 0.40 0 - 0.80 K/UL [facility] Absolute Eosinophil Count 0.20 0 - 0.45 K/UL [facility] Absolute Basophil Count 0.00 0 - 0.20 K/UL [facility] Specimen Blood Performing Organization Address [facility] Phone Number MA[facility] LAB [address] [place] [address] * TYPE & CROSSMATCH (07/17/2018 7:31 AM) Units Ordered 3 [facility] Crossmatch Expires 07/20/2018 [facility] Record Check FOUND [facility] ABO/RH(D) O POS [facility] Antibody Screen NEG [facility] Electronic Crossmatch YES [facility] Unit Number [id number] [facility] Blood Component Type RBC,ADSOL,LEUKO REDUCED [facility] Unit Division 0 [facility] Status OF Unit REL FROM ALLOC [facility] Transfusion Status OK TO TRANSFUSE [facility] Crossmatch Result COMPATIBLE,ELECTRONIC [facility] Unit Number [id number] [facility] Blood Component Type RBC,ADSOL,LEUKO REDUCED [facility] Unit Division 0 [facility] Status OF Unit REL FROM ALLOC [facility] Transfusion Status OK TO TRANSFUSE [facility] Crossmatch Result COMPATIBLE,ELECTRONIC [facility] Unit Number [id number] [facility] Blood Component Type RBC,ADSOL,LEUKO REDUCED [facility] Unit Division 0 [facility] Status OF Unit TRANSFUSED [facility] Transfusion Status OK TO TRANSFUSE [facility] Crossmatch Result COMPATIBLE,ELECTRONIC [facility] Unit Number [id number] [facility] Blood Component Type RBC,ADSOL,LEUKO REDUCED,2ND [facility] CONT. Unit Division 0 [facility] Status OF Unit REL FROM ALLOC [facility] Transfusion Status OK TO TRANSFUSE [facility] Crossmatch Result COMPATIBLE,ELECTRONIC [facility] Unit Number [id number] [facility] Blood Component Type RBC,ADSOL,LEUKO REDUCED,2ND [facility] CONT. Unit Division 0 [facility]IN [facility] Status OF Unit REL FROM ALLOC [facility] Transfusion Status OK TO TRANSFUSE MAIN LAB Crossmatch Result COMPATIBLE,ELECTRONIC MAIN LAB Unit Number [id number] MAIN LAB Blood Component Type RBC,ADSOL,LEUKO REDUCED [facility] Unit Division 0 [facility]IN [facility] Status OF Unit TRANSFUSED [facility] Transfusion Status OK TO TRANSFUSE MAIN LAB Crossmatch Result COMPATIBLE,ELECTRONIC MAIN LAB Specimen Blood Performing Organization Address City/State/Zipcode Phone Number MAIN LAB [address] [place] [address] * TYPE & SCREEN (NOT CROSSMATCH ELIGIBLE) (06/27/2018 2:02 PM) ABO/RH(D) O POS [facility] Antibody Screen NEG MAIN LAB Blood Component Type RED CELL GROUP [facility] Specimen Blood, venous - Blood Performing Organization Address City/State/Zipcode Phone Number [facility] [address] [place] [address] * NM PET/CT EXTERNAL IMAGING (2018 12:15 AM) Narrative Performed At This order has been auto finalized and does not contain a result. * CT CHEST EXTERNAL IMAGING (2018) Narrative Performed At This order has been auto finalized and does not contain a result. from Last 3 Months
--- OUTSIDE RECORDS SUMMARY | 2018-08-20 08:32 | XMS REPORT | Encounter Summary ---
Author Author [facility] Organization [facility] Address Unknown Phone Unavailable Care Team Providers Care Store Assistant Name Role Phone Hyacinth Arias DO PCP Reason for Visit * Reason Comments Dysphagia Encounter Details Date Type Department Care Team Description 08/14/2018 Clinical [facility] Alis Rya, Tongue cancer (HCC); Support Physicians - ENT DIONISIO,CCC-GAS ENGINE PERFORMANCE ENGINEER Oropharyngeal dysphagia [facility] [address] [place] [address] Social History Tobacco Use Types Packs/Day Years Used Date Former Smoker Cigarettes 1.5 50 Quit: 06/27/2008 Smokeless Tobacco: Never Used Alcohol Use Drinks/Week oz/Week Comments Yes 4 Cans of 2.4 beer Sex Assigned at Date Recorded Not on file as of this encounter Functional Status Functional Status Response Date of Assessment Does the patient have a hearing impairment: No 07/19/2018 as of this encounter Progress Notes * Alis Ray MA,CCC-GAS ENGINE PERFORMANCE ENGINEER - 08/14/2018 9:00 AM CDT Formatting of this note may be different from the original. [facility] Modified Barium Swallow (MBS) Evaluation (70047) Staff: Nanette Louie M.D. Date of Service: 08/14/2018 G Codes: G8996: CK - Noms 4 - mild to moderate + G8997: CJ - Noms 5 - mild Yeimy Lima is a 73 y.o. female, referred to this service by Dr. Moore and Dr. Alexandre for a speech pathology modified barium swallow evaluation with a diagnosis of dysphagia. The patient's past medical history is significant for left hemiglossectomy, bilateral MRND and tracheostomy by Dr. Kakarala and left forearm free flap, left pec major flap and STSG by Dr. Alexandre on 07/17/18. Patient is currently receiving 100% of her nutrition and hydration by G tube. The patient's current diet level is most consistent with FOIS Scale 1: Nothing by mouth. Patient reports no baseline/pre-operative swallowing difficulty. The purpose of this evaluation is to assess the efficiency and safety of the swallow mechanism and to provide a plan for intervention as warranted. EVALUATION RESULTS: A cursory oral mechanism was completed. Labial function was within normal limits. Lingual function was moderately impaired. Patient with partial dentition. She is soon going to have all of her teeth pulled prior to starting adjuvant radiation. Jaw ROM was adequate for a regular diet. Upon palpation of a dry swallow, laryngeal elevation seemed prompt and adequate. Trach present, uncapped, patient was digitally occluding during this exam. Lateral Views Patient was presented with the following consistencies during this evaluation: thin liquid, nectar-thick liquid, pudding and barium tablet. Administration was given by the patient via spoon, side of cup. Patients oral phase of swallow was mild to moderately impaired. Lip closure for intraoral bolus containment resulted in no labial escape. Tongue control during bolus hold allowed bolus escape to the lateral buccal cavity/floor of mouth. Bolus preparation and mastication could not be assessed. No solid was given do to safety concerns or logistical reasons not related to mastication. Bolus transport/lingual motion was with brisk tongue motion. Oral residue was a trace, lining oral structures. Patients pharyngeal phase of swallow was mildly impaired. . Initiation of the pharyngeal swallow occured when the bolus head was in the pyriform sinuses. Soft palate elevation resulted in no bolus between the soft palate and the pharyngeal wall. Laryngeal elevation demonstrated complete superior movement of the thyroid cartilage with complete approximation of the arytenoids to the epiglottic petiole. Anterior hyoid excursion demonstrated complete anterior movement. Epiglottic movement resulted in complete inversion. Laryngeal vestibular closure was incomplete, with narrow column of air/contrast noted within the laryngeal vestibule at the height of the swallow. Pharyngeal stripping wave was present, but diminished. Pharyngeal contraction was complete. Pharyngoesophageal segment (cricopharyngeal) opening was completely distended for complete duration with no obstruction of bolus flow. Tongue base retraction allowed a trace column of contrast or air between the retracted tongue base and the posterior pharyngeal wall. Pharyngeal residue was a collection of residue within or on pharyngeal structures. Pharyngeal and laryngeal sensation was adequate. Intermittent, mild penetration of thin barium was observed during the swallow, eliminated with swallow strategies. This was consistent with; Rosenbek Scale: 2 - Material enters the airway, remains above the vocal folds, and is ejected from the airway.. No other penetration or aspiration observed. Anterior-Posterior Views No pharyngeal asymmetry appreciated. Esophageal clearance in the upright position resulted in esophageal retention. The following swallowing maneuvers were attempted during this evaluation: chin- down head posture, multiple swallows and cough/clear post swallow. These strategies were all effective to improve airway clearance and decreased pharyngeal residue. IMPRESSIONS: Based on the above findings, Yeimy Lima presents with Noms level 4 mild-moderate oropharyngeal dysphagia, characterized primarily by decreased lingual function, mild pharyngeal phase delay. Mild penetration with thins eliminated with swallow strategies. Results of this exam indicate relatively low risk of aspiration related illness and fair to good swallow efficiency. She may still need some nutrition support with liquid supplements like Boost or Ensure. Prognosis for improvement is good based on current level of function. 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 The following recommendations and therapy goals should be implemented: 1: Diet: thin liquids, puree food items, mechanical soft food items, may need nutrition supplements, pills taken in spoonful of puree, given dysphagia guidelines. The recommended diet level is most consistent with FOIS Scale 5: Total oral diet with multiple consistencies, but requiring special preparation or compensations. 2: Swallow Hard. 3: Bites or sips of less than one teaspoon. 4: Cough or clear after you swallow thin liquids 5: Use chin tuck for every swallow of thin liquids. 6: Complete gentle oral cares before and after eating or drinking. 7: Continue to follow up with speech language pathologist regarding swallow treatment program. 8: Follow up with your physician as directed. These findings and recommendations were discussed with this patient and referring physician with good understanding and agreement. CH: 0% Impaired CI: 1% to 19% Impaired CJ: 20% to 39% Impaired CK: 40% to 59% Impaired CL: 60% to 79% Impaired CM: 80% to 99% Impaired CN: 100% Impaired ATTESTATION I have reviewed the information from this visit and agree with the impression and recommendations. Staff name: Nanette Louie MD Date: 08/14/2018 in this encounter Plan of Treatment Not on fileas of this encounter Visit Diagnoses Diagnosis Tongue cancer (HCC) Malignant neoplasm of tongue, unspecified site Oropharyngeal dysphagia Dysphagia, oropharyngeal phase
--- OUTSIDE RECORDS SUMMARY | 2018-08-20 08:32 | XMS REPORT | Encounter Summary ---
Author Author [facility] Organization [facility] Address Unknown Phone Unavailable Care Team Providers Care Lockstitch Collar Setter Name Role Phone Hyacinth Arias DO PCP Reason for Referral * Consult, Test & Treat (Routine) Status Reason Specialty Diagnoses / Referred By Referred To Procedures Contact Contact New Request Specialty Diagnoses Adithya Cook, Services Oropharyngeal PA-C Required dysphagia [address] [place] [address] * Consult, Test & Treat (Routine) Status Reason Specialty Diagnoses / Referred By Referred To Procedures Contact Contact New Request Specialty Diagnoses Adithya Cook, Services Shoulder PA-C Required weakness [address] [place] [address] Reason for Visit * Reason Comments Post Operative Visit s/p left hemiglossectomy, bilateral MRND and tracheostomy by Dr. Moore and left forearm free flap, left pec major flap and STSG by Dr. Alexandre on 07/17/18 Encounter Details Date Type Department Care Team Description 08/14/2018 Office Visit [facility] Adithya Cook, ANAC Shoulder weakness Physicians - ENT [address] (Primary Dx); [facility] [address] Oropharyngeal dysphagia; [address] [place] [address] Squamous cell carcinoma; [address] [phone] S/P flap graft; [place], [place] Tracheostomy in place [id number] (FORM[facility]LY [facility]) [phone] Social History Tobacco Use Types Packs/Day Years Used Date Former Smoker Cigarettes 1.5 50 Quit: 06/27/2008 Smokeless Tobacco: Never Used Alcohol Use Drinks/Week oz/Week Comments Yes 4 Cans of 2.4 beer Sex Assigned at Date Recorded Not on file as of this encounter Last Filed Vital Signs Vital Sign Reading Time Taken Blood Pressure 117/54 08/14/2018 10:06 AM CDT Pulse 59 08/14/2018 10:06 AM CDT Temperature - - Respiratory Rate - - Oxygen Saturation - - Inhaled Oxygen - - Concentration Weight 50.8 kg (112 lb) 08/14/2018 10:06 AM CDT Height 144.8 cm (4' 9") 08/14/2018 10:06 AM CDT Body Mass Index 24.24 08/14/2018 10:06 AM CDT in this encounter Functional Status Functional Status Response Date of Assessment Does the patient have a hearing impairment: No 07/19/2018 as of this encounter Progress Notes * Adithya Cook PA-C - 08/14/2018 10:00 AM CDT HPI: Yeimy Lima was [facility]14/2018 [facility] for postop follow up visit s/p left hemiglossectomy, bilateral MRND and tracheostomy by Dr. Moore and left forearm free flap, left pec major flap and STSG by Dr. Alexandre on 07/17/18. She is doing well. Accompanied by her today. She had dental exam on 08/06/18 and reports that they only wanted to pull 2 teeth. She reports that the radiation oncologist, Dr. Barrera, wants her to have all of her teeth removed so she has a new dental consultation close to home tomorrow, 08/15/18. Not sure of when she will be actually scheduled to have her teeth pulled. She is not sure of her start date for radiation because of this. She had a video swallow today and can start eating PO. She has a G- tube in place. No problems with breathing. Home health coming to house every other day. No fever or drainage from her neck incisions. Pain has been controlled. No bleeding from the OC. Wearing humidity over trach at home. She completed abx I gave to her at her last visit. The pathology revealed Final Diagnosis: A. Squamous mucosa, "anterior dorsal [...] Greatest dimension (centimeters): 4.1 cm Additional dimensions (centimeters): 3.1 x 1.3 cm Tumor Depth of Invasion (DOI) (millimeters): 8 mm Histologic Type: Squamous Cell Carcinoma, conventional Histologic Grade: G2: Moderately differentiated Tumor Extension Specify: Tumor invades into skeletal muscle of tongue Specimen Margins: Margins on the main composite resection specimen Uninvolved by invasive tumor Distance from closest margin (millimeters): 3 mm Specify location of closest margin, per orientation, if possible: Deep Other close margins: All other margins >3mm Uninvolved by high-grade dysplasia/in [...] Pathologic Stage Classification (pTNM, AJCC 8th Edition): pT3 N0 Mna PE: BP 117/54 (BP Source: Arm, Left Upper, Patient Position: Sitting) | Pulse 59 | Ht 144.8 cm (57") | Wt 50.8 kg (112 lb) | BMI 24.24 kg/m Physical exam including head and neck examination of the oral cavity and oropharynx as well as inspection and palpation of the face, parotid and neck is remarkable for findings consistent with posttreatment postoperative changes and negative for new lesions, masses or lymphadenopathy. Healing well. Airway is adequate with trach in place and she does not have it capped and is not wearing a speaking valve. Pts. left neck including submental area is indurated and there is an area within the left lateral neck incision that will drain purulent fluid when manipulated. Pt. reports that it drained on her for the first time last night. Flap is healing with granulation tissue present. Right shoulder weakness noted. Flap donor site with small 0.5 x 2 cm area of tendon exposure and was dressed in a WTD fashion. Trach tube secretions have cleared up and there is no more foul odor. IMPRESSION:Overall, Ms. Lima is doing well, healing well, and appears clinically free of disease. PLAN:We will see her in 1 month after completion of adjuvant XRT with DR. Moore. 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 Intratumoral PNI was identified. Pt. to start live culture yogurt and probiotics since she is starting another abx. Augmentin sent to pharmacy. Neck appears to have infection that lead to spontaneous drainage. She will follow up with me in 2 weeks if infection does not appear to be completely resolved. I spoke with pt. and about needing to start adjuvant XRT within 6 weeks of surgery. She is now 4 weeks out and has new dental consult tomorrow and unsure if they will actually pull her teeth. She reports that her radiation oncologist will want to wait 10 days post teeth extractions to start therapy and that simulation is to be arranged for later this week. All questions and concerns were addressed today and the pt. was encouraged to call with any further that may arise. in this encounter Plan of Treatment Name Priority Associated Diagnoses Order Schedule AMB REFERRAL TO PHYSICAL THERAPY Routine Shoulder weakness Ordered: AMB REFERRAL TO SPEECH THERAPY Routine Oropharyngeal dysphagia Ordered: 08/14/2018 as of this encounter Visit Diagnoses Diagnosis Shoulder weakness - Primary Other symptoms referable to shoulder joint Oropharyngeal dysphagia Dysphagia, oropharyngeal phase Squamous cell carcinoma Other malignant neoplasm without specification of site S/P flap graft Other postprocedural status Tracheostomy in place (HCC) Tracheostomy status
--- OUTSIDE RECORDS SUMMARY | 2018-08-20 08:33 | XMS REPORT | Encounter Summary ---
Author Author [facility] Organization [facility] Address Unknown Phone Unavailable Care Team Providers Care Movie Critic Name Role Phone Hyacinth Arias DO PCP Reason for Referral * Radiology Services (Routine) Status Reason Specialty Diagnoses / Referred By Referred To Procedures Contact Contact No Auth Needed Radiology Diagnoses Adithya Cook Bh2 Gen Radiology Oropharyngeal [facility] 2nd dysphagia [address] [facility] [address] [place] [address] SERIES [id number] Phone: * Radiology Services (Routine) Status Reason Specialty Diagnoses / Referred By Referred To Procedures Contact Contact No Auth Needed Radiology Diagnoses Adithya Cook Bh2 Gen Radiology Oropharyngeal [facility] 2nd dysphagia [address] [facility] [address] [place] [address] SERIES [id number] Phone: Reason for Visit * Radiology Services (Routine) Status Reason Specialty Diagnoses / Referred By Referred To Procedures Contact Contact No Auth Needed Radiology Diagnoses Adithya Cook Bh2 Gen Radiology Oropharyngeal [facility] 2nd dysphagia [address] [facility] [address] [place] [address] SERIES [id number] Phone: Encounter Details Date Type Department Care Team Description 08/14/2018 Hospital [facility] Adithya Cook PA-C Arrived Encounter Hospital Radiology [address] [facility] [address] [place] [address] [place] [address] [phone] Social History Tobacco Use Types Packs/Day Years [...] impairment: No 07/19/2018 as of this encounter Medications at Time of Discharge Medication Sig. Disp. Refills Start Date End Date acetaminophen (TYLENOL) 20.3 mL by Per NG tube 240 mL 0 07/24/2018 160 mg/5 mL oral solution route every 4 hours. Max of 4,000 mg of acetaminophen in 24 hours. amoxicillin/K clavulanate Take one tablet by mouth 20 tablet 0 201708/24/2018 (AUGMENTIN) 875/125 mg twice daily for 10 days. tablet Take with food. aspirin EC 81 mg tablet Take 81 mg by mouth daily. Take with food. atenolol (TENORMIN) 50 mg Take 50 mg by mouth tablet daily. calcium carbonate-vitamin Take 1 tablet by mouth D3 (CALTRATE WITH VITAMIN daily. D3) 600 mg(1,500mg) -800 unit tab cyanocobalamin 1,000 mcg Take 1,000 mcg by mouth tablet daily. docusate (COLACE) 50 mg/5 10 mL by Per NG tube 500 mL 0 07/24/2018 mL oral solution route twice daily. fish oil- omega 3-DHA/EPA Take 1 capsule by mouth 300/1,000 mg capsule daily. fluticasone (FLONASE) 50 Apply 2 sprays to each mcg/actuation nasal spray nostril as directed daily. Shake bottle gently before using. lisinopril (PRINIVIL; Take 10 mg by mouth ZESTRIL) 10 mg tablet daily. loratadine (CLARITIN) 10 Take 10 mg by mouth every mg tablet morning. omeprazole DR(+) Take 40 mg by mouth daily (PRILOSEC) 40 mg capsule before breakfast. oxyCODONE (ROXICODONE) 1 5-15 mL by Per NG tube 500 mL 0 07/24/2018 mg/mL oral solution route every 4 hours as needed Earliest Fill Date: 07/24/18 simvastatin (ZOCOR) 40 mg Take 40 mg by mouth at tablet bedtime daily. vitamins, multiple cap Take 1 capsule by mouth daily. warfarin (COUMADIN) 5 mg 5mg on Wed and Fri 7.5mg tablet on Sun, Mon, Tu, Thur, Sat as of this encounter Plan of Treatment Not on fileas of this encounter Procedures Procedure Name Priority Date/Time Associated Diagnosis Comments SWALLOW MOTION SERIES Routine 08/14/2018 Oropharyngeal dysphagia Results for this 9:21 AM CDT procedure are in the results section. in this encounter Results * SWALLOW MOTION SERIES (08/14/2018 9:21 [...] on 08/14/2018 10:33 AM. Performing Organization Address City/State/Zipcode Phone Number [facility] RESULTS in this encounter Visit Diagnoses Diagnosis Oropharyngeal dysphagia Dysphagia, oropharyngeal phase Administered Medications Medication Order MAR Action Action Date Dose Rate Site barium sulfate 40 % (VARIBAR HONEY) oral Given 08/14/2018 10 mL suspension 10 mL 09:05 CDT 10 mL, Oral, ONCE, 1 dose, 08/14/18 at 0915, GI Procedure Area Only barium sulfate 40 % (VARIBAR NECTAR) Given 08/14/2018 10 mL oral suspension 10 mL 09:05 CDT 10 mL, Oral, ONCE, 1 dose, 08/14/18 at 0915, GI Procedure Area Only barium sulfate 40 % (VARIBAR PUDDING) Given 08/14/2018 10 mL oral paste 10 mL 09:05 CDT 10 mL, Oral, ONCE, 1 dose, 08/14/18 at 0915, GI Procedure Area Only barium sulfate 40 % (VARIBAR THIN Given 08/14/2018 10 mL LIQUID) oral powder for suspension 10 mL 09:05 CDT 10 mL, Oral, ONCE, 1 dose, 08/14/18 at 0915, Mixing Instructions: 1. Gently shake the barium sulfate to loosen the powder. 2. Remove Cap. Add water to the 40% (w/v) line and replace the cap. 3. Invert bottle and tap with fingers to mix the powder into the water. 4. Shake vigorously for 30 seconds. Let stand for 5 minutes. 5. Suspension has hydrated and settled. Re-fill with water to the 40% line and replace cap. 6. Re-shake thoroughly. Product is now ready for use. in this encounter
--- OUTSIDE RECORDS SUMMARY | 2018-08-20 08:33 | XMS REPORT | Encounter Summary ---
Author Author [facility] Organization [facility] Address Unknown Phone Unavailable Care Team Providers Care Head Sampler Name Role Phone Hyacinth Arias DO PCP Reason for Visit * Reason Comments Other Speak to Nurse Encounter Details Date Type Department Care Team Description 08/01/2018 Telephone [facility] Adithya Cook PA-C Other ( Speak to Nurse) Physicians - ENT [address] [facility] [address] [place] [address] [phone] [place] [address] Social History Tobacco Use Types [...] impairment: No 07/19/2018 as of this encounter Miscellaneous Notes * Telephone Encounter - Che Noyola LPN - 08/01/2018 11:53 AM CDT Provider called. * Telephone Encounter - Murphy Blair - 08/01/2018 11:48 AM CDT Xiomara the home health nurse called stating patient has a 101.3 temperature. PCP is out of town til Monday. She asked if we can put in an order for a CBC for lab she has already drawn. in this encounter Plan of Treatment Not on fileas of this encounter Visit Diagnoses Not on filein this encounter
--- OUTSIDE RECORDS SUMMARY | 2018-08-20 08:33 | XMS REPORT | Encounter Summary ---
Author Author [facility] Organization [facility] Address Unknown Phone Unavailable Care Team Providers Care Bakery Associate Name Role Phone Hyacinth Arias DO PCP Reason for Visit * Reason Comments Navigation Follow Up Encounter Details Date Type Department Care Team Description 08/01/2018 Telephone [facility] Dolores Mc RN Navigation Follow Up [facility] - [facility] [address] [address] Social History Tobacco Use Types Packs/Day Years [...] encounter Miscellaneous Notes * Telephone Encounter - Dolores Mc RN - 08/01/2018 1:59 PM CDT Scheduled for rad/onc consult with Dr. Gabriel at [facility] in [place], [place]. Records faxed to [phone]; Priscilla. Discussed plan with pt and she states understanding. in this encounter Plan of Treatment Not on fileas of this encounter Visit Diagnoses Not on filein this encounter
--- OUTSIDE RECORDS SUMMARY | 2018-08-20 08:33 | XMS REPORT | Encounter Summary ---
Author Author [facility] Organization [facility] Address Unknown Phone Unavailable Care Team Providers Care Supervisor Pyrotechnic Loading Name Role Phone Hyacinth Arias DO PCP Reason for Referral * Radiology Services (Routine) Status Reason Specialty Diagnoses / Referred By Referred To Procedures Contact Contact No Auth Needed Radiology Diagnoses Adithya Cook Bh2 Gen Radiology Oropharyngeal PA-[facility] 2nd dysphagia [address] rocedures [place] [address] [place], [place] [address] SERIES [address] Phone: Reason for Visit * Reason Comments Post Operative Visit s/p left hemiglossectomy, bilateral MRND and tracheostomy by Dr. Moore and left forearm free flap, left pec major flap and STSG by Dr. Alexandre on 07/17/18 Encounter Details Date Type Department Care Team Description 07/31/2018 Office Visit [facility] Adithya Cook PA-C Oropharyngeal dysphagia Physicians - ENT [address] (Primary Dx); Ortho and Medical [place] [address] Tongue cancer (HCC); Pav[address] Level [address] [place] [address] S/P flap graft; [address] [phone] [place], [place] (HCC) [address] Social History Tobacco Use Types Packs/Day Years Used Date Former Smoker Cigarettes 1.5 50 Quit: 06/27/2008 Smokeless Tobacco: Never Used Alcohol Use Drinks/Week oz/Week Comments Yes 4 Cans of 2.4 beer Sex Assigned at Date Recorded Not on file as of this encounter Last Filed Vital Signs Vital Sign Reading Time Taken Blood Pressure 116/65 07/31/2018 10:01 AM CDT Pulse 73 07/31/2018 10:01 AM CDT Temperature - - Respiratory Rate - - Oxygen Saturation - - Inhaled Oxygen - - Concentration Weight 51.3 kg (113 lb 3.2 oz) 07/31/2018 10:01 AM CDT Height 144.8 cm (4' 9") 07/31/2018 10:01 AM CDT Body Mass Index 24.5 07/31/2018 10:01 AM CDT in this encounter Functional Status Functional Status Response Date of Assessment Does the patient have a hearing impairment: No 07/19/2018 as of this encounter Instructions * Patient Instructions - Che Noyola LPN - 07/31/2018 10:00 AM CDT Test ordered: Video Swallow Location: [facility] at [address] [place] [address] (2nd Floor) Phone number: [phone] Radiology Department Che Noyola LPN., -- Nurse for Dr Juan Mckenzie, Dr Janette Mckinnon, Dr Ced Jordan, Adithya Cook PA-C & [facility]az[facility] Appointment Date & Time: 08.14.2018 @ 9:00am, arriving @ 8:30am. PLEASE ARRIVE 30 MINUTES PRIOR TO YOUR SCAN in this encounter Progress Notes * Adithya Cook PA-C - 07/31/2018 10:00 AM CDT HPI: Yeimy Lima was seen 07/31/2018 [facility] for postop follow up visit s/p left hemiglossectomy, bilateral MRND and tracheostomy by Dr. Moore and left forearm free flap, left pec major flap and STSG by Dr. Alexandre on 07/17/18. She is doing well. Accompanied by her today. She has dental exam on 08/06/18. No rad onc consult has yet been arranged. She is not scheduled for a video swallow. She has a G-tube in place. Here for staple removal. No problems with breathing. Home health coming to house every other day. No fever or drainage from her neck incisions. Pain has been controlled. No bleeding from the OC. Wearing humidity over trach at home. The pathology revealed Final Diagnosis: A. Squamous [...] Classification (pTNM, AJCC 8th Edition): pT3 N0 Mna/ PE: BP 116/65 | Pulse 73 | Ht 144.8 cm (57") | Wt 51.3 kg (113 lb 3.2 oz) | BMI 24.50 kg/m Physical exam including head and neck examination of the oral cavity and oropharynx as well as inspection and palpation of the face, parotid and neck is remarkable for findings consistent with posttreatment postoperative changes and negative for new lesions, masses or lymphadenopathy. Healing well. No active infection. Airway is adequate. Flap is healing and top laying sloughing off as expected. Granulation tissue coming in at flap margins. Neck incisions well healed. Trach with very foul odor and green drainage. [place] removed from chest. Left flap donor site has 100% take of the STSG and this was redressed with xeroform. Pt. can wiggle fingers and has sensation of thumb pad. IMPRESSION:Overall, Ms. Lima is doing well, healing well, and appears clinically free of disease. PLAN:We will see her in 2 weeks with video swallow same day. Lex sent to her pharmacy for trach infection. 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 Intratumoral PNI was identified. Pathology was reviewed with the pt. and a copy of their pathology report was given to them today. All questions and concerns were addressed today and the pt. was encouraged to call with any further that may arise. Dental clearance scheduled for 08/06/18. Will have nurse navigators arrange for rad onc consult close to home.She should follow up with Dr. Moore 1 month after completion of adjuvant XRT. in this encounter Plan of Treatment Name Priority Associated Diagnoses Order Schedule ENT SPEECH VIDEO SWALLOW Routine Oropharyngeal dysphagia Expected: 07/31, Expires: 07/31/2019 as of this encounter Results * SWALLOW MOTION SERIES [...] this encounter Visit Diagnoses Diagnosis Oropharyngeal dysphagia - Primary Dysphagia, oropharyngeal phase Tongue cancer (HCC) Malignant neoplasm of tongue, unspecified site S/P flap graft Other postprocedural status Tracheostomy in place (HCC) Tracheostomy status
--- OUTSIDE RECORDS SUMMARY | 2018-08-20 08:33 | XMS REPORT | Encounter Summary ---
Author Author [facility] Organization [facility] Address Unknown Phone Unavailable Care Team Providers Care Electrician Helper Name Role Phone Hyacinth Arias DO PCP Reason for Visit * Reason Comments Other Encounter Details Date Type Department Care Team Description 07/25/2018 Telephone [facility] Abdi Alexandre MD Other Physicians - ENT [address] [facility] [place] [address] Pavilion Level [address]C [phone] [place] [address] Social History Tobacco Use Types [...] encounter Miscellaneous Notes * Telephone Encounter - Steff Oviedo LPN - 07/25/2018 4:20 PM CDT Telephone call to Xiomara with fax number to send orders. Xiomara denies further questions at this time. * Telephone Encounter - Isadora Sanz - 07/25/2018 9:02 AM CDT Nurse asking for permission to use Dr. Alexandre as home care doctor and sign plan of care, call Xiomara at [phone]. in this encounter Plan of Treatment Not on fileas of this encounter Visit Diagnoses Not on filein this encounter
--- OUTSIDE RECORDS SUMMARY | 2018-08-20 08:33 | XMS REPORT | Encounter Summary ---
Author Author [facility] Organization [facility] Address Unknown Phone Unavailable Care Team Providers Care Procurement Buyer Name Role Phone Hyacinth Arias DO PCP Reason for Visit * Reason Comments Other Encounter Details Date Type Department Care Team Description 07/30/2018 Telephone [facility] Adithya Cook PA-C Other Physicians-ENT [address] [facility] [place], [place] [address] [place], [place] [id number] [facility], [address] [place], [place] [phone] Social History Tobacco Use Types Packs/Day Years [...] Telephone Encounter - Che Noyola LPN - 07/31/2018 11:31 AM CDT Encouraged Xiomara to discuss w/ pt's PCP. * Telephone Encounter - Tarun Bliss - 07/30/2018 11:50 AM CDT Xiomara Talbot [facility]- [phone] wanted to advise that the patient has been having a temp of 99 to 100 every day. As well, they want to provider her with the flu shot and would like to discuss. in this encounter Plan of Treatment Not on fileas of this encounter Visit Diagnoses Not on filein this encounter
--- OUTSIDE RECORDS SUMMARY | 2018-08-20 08:33 | XMS REPORT | Encounter Summary ---
Author Author [facility] Organization [facility] Address Unknown Phone Unavailable Care Team Providers Care Trauma Therapist Name Role Phone Hyacinth Arias DO PCP Reason for Visit * Reason Comments Consult * Auth/Cert Status Reason Specialty Diagnoses / Referred By Referred To Procedures Contact Contact Diagnoses Oral cancer (HCC) Oral cancer (HCC) [C06.9] P rocedures OR CERVICAL LYMPHADEC MODIFIED RADICAL NECK DSJ OR GLOSSECTOMY HEMIGLOSSECTOMY OR FREE FASCIAL FLAP W/MICROVASCULAR ANASTOMOSIS CERVICAL LYMPHADENECTOMY GLOSSECTOMY/ HEMIGLOSSECTOMY TISSUE TRANSFER FREE FASCIAL FLAP WITH MICROVASCULAR ANASTOMOSIS Encounter Details Date Type Department Care Team Description 07/24/2018 Office Visit [facility] - Radiation Michael Landeros MD Tongue cancer (HCC) Therapy [address] (Primary Dx) Shad Reveles [place] [address] [place] [address] [address] [facility] [phone] [place] [address] [phone] Social History Tobacco Use Types Packs/Day Years [...] as of this encounter Progress Notes * Michael Landeros MD - 07/24/2018 6:00 PM CDT Formatting of this note may be different from the original. Radiation Oncology Consultation The patient was seen inpatient however, was discharged before consult note could be completed. Date: 07/24/2018 Yeimy Lima is a 73 y.o. female. Requesting Provider: Radha Alexandre MD There were no encounter diagnoses. Staging: Cancer Staging No matching staging information was found for the patient. 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 The patient has a h/o left floor of mouth cancer that was treated with priamrye xcisio in 2005. She underwent routine followup for a longstanding leukoplakia of the left oral tongue. Recently, the patient experienced more pain and the lsion has become ulcerative. Biopsy of the lesion found invasive squamous cell carcinoma. PET scan found increased uptake in the left tongue and floor of mouth. There was a prominent level [address] scan. The patient underwent left hemiglossectomy with B/L MRND with Dr. Flores on 07/17/2018. She initially had a radial forearm free frlap but this failed and so she had surgery for pect major myocutaneous flap reconstruction. She has a trach and a peg tube. She reports that she has been swallowing her saliva. No prior RT. No Pacemaker. Pain is controlled. Last saw a dentist years ago. Pathology revealed squamous cell carcinoma of the left tongue, 4.1cm, DOI 8mm, close margin of 3mm, +PNI. All LNs were negative. The patient lives in [place], [place] and wishes to receive RT closer to home. Past Medical History: Patient Active Problem List Diagnosis Date Noted Anemia associated with acute blood loss 07/20/2018 Dysphagia 07/20/2018 Acid reflux 07/19/2018 A-fib (HCC) 07/19/2018 HTN (hypertension) 07/19/2018 Squamous cell carcinoma 07/17/2018 Tongue cancer (HCC) 07/02/2018 Past Medical History: Diagnosis Date Acid reflux controlled with omeprazole Afib (HCC) Arthritis Hyperlipidemia Hypertension Oral cancer (HCC) Past Surgical History: Procedure Laterality Date HX HIP REPLACEMENT Right 2002 HIP SURGERY Right 2007 3 surgeries 2/2 infection in joint area CARDIOVERSION 2009 LYMPHADENECTOMY Bilateral 07/17/2018 CERVICAL LYMPHADENECTOMY performed by Isaac Flores MD at [facility] OR/Periop GLOSSECTOMY Left 07/17/2018 GLOSSECTOMY/ HEMIGLOSSECTOMY performed by Isaac Flores MD at [facility] OR/Periop TISSUE TRANSFER Left 07/17/2018 TISSUE TRANSFER FREE FASCIAL FLAP WITH MICROVASCULAR ANASTOMOSIS performed by Isaac Flores MD at [facility] OR/Periop TISSUE TRANSFER 07/17/2018 TISSUE TRANSFER FREE FASCIAL FLAP WITH MICROVASCULAR ANASTOMOSIS performed by Radha Alexandre MD at [facility] OR/Periop TISSUE GRAFT Left 07/17/2018 TISSUE TRANSFER MUSCLE/ MYOCUTANEOUS/ FASCIOCUTANEOUS FLAP WITH VASCULAR PEDICLE - HEAD/ NECK performed by Radha Alexandre MD at [facility] OR/Periop EXPLORATION WOUND N/A 07/18/2018 EXPLORATION POSTOPERATIVE WOUND - NECK performed by Radha Alexandre MD at [facility] OR/ Periop BIOPSY 2015, 2017 tongue REVISION TOTAL HIP ARTHROPLASTY ~2008 Prior Radiation History: None Medications acetaminophen (TYLENOL) 160 mg/5 mL oral solution 20.3 mL by Per NG tube route every 4 hours. Max of 4,000 mg of acetaminophen in 24 hours. aspirin EC 81 mg tablet Take 81 mg by mouth daily. Take with food. atenolol (TENORMIN) 50 mg tablet Take 50 mg by mouth daily. calcium carbonate-vitamin D3 (CALTRATE WITH VITAMIN D3) 600 mg(1,500mg) - 800 unit tab Take 1 tablet by mouth daily. cyanocobalamin 1,000 mcg tablet Take 1,000 mcg by mouth daily. docusate (COLACE) 50 mg/5 mL oral solution 10 mL by Per NG tube route twice daily. fish oil- omega 3-DHA/EPA 300/1,000 mg capsule Take 1 capsule by mouth daily. fluticasone (FLONASE) 50 mcg/actuation nasal spray Apply 2 sprays to each nostril as directed daily. Shake bottle gently before using. lisinopril (PRINIVIL; ZESTRIL) 10 mg tablet Take 10 mg by mouth daily. loratadine (CLARITIN) 10 mg tablet Take 10 mg by mouth every morning. omeprazole DR(+) (PRILOSEC) 40 mg capsule Take 40 mg by mouth daily before breakfast. oxyCODONE (ROXICODONE) 1 mg/mL oral solution 5-15 mL by Per NG tube route every 4 hours as needed Earliest Fill Date: 07/24/18 simvastatin (ZOCOR) 40 mg tablet Take 40 mg by mouth at bedtime daily. vitamins, multiple cap Take 1 capsule by mouth daily. warfarin (COUMADIN) 5 mg tablet 5mg on Wed and Mon 7.5mg on Sun, Mon, Tues , Thur, Sat Allergies: No Known Allergies Social History: Social History Social History Marital status: Spouse name: N/A Number of children: N/A Years of education: N/A Social History Main Topics Smoking status: Former Smoker Packs/day: 1.50 Years: 50.00 Types: Cigarettes Quit date: 06/27/2008 Smokeless tobacco: Never Used Alcohol use 2.4 oz/week 4 Cans of beer per week Drug use: No Sexual activity: Not on file Other Topics Concern Not on file Social History Narrative No narrative on file Family History: No family history on file. Review of Systems Patient Evaluated for a Clinical Trial: No treatment clinical trial available for this patient. KARNOFSKY PERFORMANCE SCORE: 80% Normal activity with effort; some symptoms of disease Physical Exam General: Patient in no acute distress. Alert and oriented. Head: Normocephalic, atraumatic Eyes: Normal sclerae/conjunctivae. Oral: Tongue flap in place. Neck: Incisions healing. Heart: Regular rate and rhythm. Lungs: Clear to ausculation B/L. No increased work of breathing Abdomen: Non-distended Skin: No rashes or pallor Neurological: Cranial nerves 2-12 grossly intact. Musculoskeletal: No deformity. No range of motion deficit. Psychiatric: Normal mood and affect LABORATORY: Comprehensive Metabolic Profile Lab Results Component Value Date/Time NA 131 (L) 07/24/2018 05:41 AM K 4.4 07/24/2018 05:41 AM CL 99 07/24/2018 05:41 AM CO2 25 07/24/2018 05:41 AM GAP 7 07/24/2018 05:41 AM BUN 15 07/24/2018 05:41 AM CR 0.51 07/24/2018 05:41 AM GLU 110 (H) 07/24/2018 05:41 AM Lab Results Component Value Date/Time CA 8.6 07/24/2018 05:41 AM PO4 3.9 07/24/2018 05:41 AM GFR >60 07/24/2018 05:41 AM GFRAA >60 07/24/2018 05:41 AM CBC w/Diff Lab Results Component Value Date/Time WBC 6.7 07/22/2018 05:19 AM RBC 2.90 (L) 07/22/2018 05:19 AM HGB 9.3 (L) 07/22/2018 05:19 AM HCT 27.0 (L) 07/22/2018 05:19 AM MCV 93.0 07/22/2018 05:19 AM MCH 32.0 07/22/2018 05:19 AM MCHC 34.4 07/22/2018 05:19 AM RDW 16.4 (H) 07/22/2018 05:19 AM PLTCT 204 07/22/2018 05:19 AM MPV 6.6 (L) 07/22/2018 05:19 AM Lab Results Component Value Date/Time NEUT 69 07/17/2018 08:08 AM ANC 3.80 07/17/2018 08:08 AM LYMA 20 (L) 07/17/2018 08:08 AM ALC 1.10 07/17/2018 08:08 AM JESICA 7 07/17/2018 08:08 AM AMC 0.40 07/17/2018 08:08 AM EOSA 3 07/17/2018 08:08 AM AEC 0.20 07/17/2018 08:08 AM BASA 1 07/17/2018 08:08 AM ABC 0.00 07/17/2018 08:08 AM IMAGING: Abdomen Ap Only Result Date: 07/18/2018 Check ngt placement. Technique: Single portable AP [...] temperature probe projected over the low pelvis. Intragastric position of the tip of the De Leon type gastric tube. Finalized by Ministerio Simon M.D. on 07/18/2018 8:44 AM. Dictated by Ministerio Simon M.D. on 07/18 8:42 AM. Ir Gastrostomy Result Date: 07/20/2018 G Tube placement under fluoroscopy and ultrasound [...] were placed in the stomach and the T- fasteners deployed. The stomach wall was then secured against the anterior abdominal wall. Next, a dermatotomy was then created with an 11-blade centrally within the gastroplasty sutures. An 18-gauge needle was then placed through the dermatotomy. A 0.035 Amplatz wire was then placed through the needle and curled in the stomach. A 14 Czech telescoping peel-away sheath was then placed over [...] within the lower body of the stomach. Impression: Gastrostomy feeding tube placement as described above. Agustin Suazo M.D., the attending interventional radiologist, performed the entire procedure, personally reviewed the images, and formulated the interpretations and opinions expressed in this report. @TT Finalized by Agustin Kumar M.D. on 07/20/2018 2:23 PM. Dictated by Agustin Kumar M.D. on 07/20/2018 2:17 PM. PATHOLOGY: PATHOLOGY REPORT Date Value Ref Range Status 07/17/2018 Final [facility] [email or web address] Department of Pathology and Laboratory Medicine [address] [place] [id number] Surgical Pathology Office: [phone] SURGICAL PATHOLOGY REPORT NAME: YEIMY LIMA SURG PATH #: [id number] MR #: [id number] SPECIMEN CLASS: [facility] BILLING #: [id number] ALT ID #: LOCATION: [facility] DATE OF PROCEDURE: 07/17/2018 AGE: 73 SEX: F DATE RECEIVED: 07/17/2018 : 1945 TIME RECEIVED: 09:13 PHYSICIAN: ISAAC FLORES MD DATE OF REPORT: 07/22/2018 COPY TO: RADHA ALEXANDRE DATE OF PRINTIN07/22/2018 ######################################################################## Final Diagnosis: A. Squamous mucosa, "anterior dorsal [...] (pTNM, AJCC 8th Edition): pT3 N0 Mna/ Note: Reporting of pT, pN, and (when applicable) pM categories is based on information available to the pathologist at the time the report is issued. Primary Tumor (pT): pT3: Tumor greater than 4 cm, or any tumor [...] status and/or prior pathology. Pursuant to the Side Seam Machine Operator Program at the [facility] Pathology Department, selected slides from this [...] +++ +++ Momo Coello MD Resident lkr/07/17/2018 ######################################################################## Material Received: A: anterior dorsal tongue mm [...] a history of oral cancer. Gross Description: A. Received fresh labeled with the patient's name and "anterior dorsal tongue MM" is a 3.3 x 0.5 x 0.5 cm irregular piece of potts-pink tissue. The specimen is entirely submitted in cassette A1FS for frozen and permanent sectioning. [facility] B. Received fresh labeled with the patient's name and "posterior dorsal tongue MM" is a 3.4 x 0.8 x 0.5 cm irregular piece of potts-pink tissue. The specimen is bisected and is entirely submitted in cassette B1FS for frozen and permanent sectioning. ([facility]) C. Received fresh labeled with the patient's name and "posterior floor mouth MM" is a 1.3 x 0.9 x 0.5 cm irregular piece of potts-pink tissue. The specimen is entirely submitted in cassette C1FS for frozen and permanent sectioning. ([facility]) D. Received fresh labeled with the patient's name and "anterior floor mouth MM" is a 0.6 x 0.4 x 0.3 cm irregular piece of potts-pink tissue. The specimen is entirely submitted in cassette D1FS for frozen and permanent sectioning. ([facility]) E. Received fresh labeled with the patient's name and "ventral tongue MM" is a 2.5 x 0.5 x 0.3 cm aggregate of potts-pink tissue. The specimen is entirely submitted in cassette E1FS for frozen and permanent sectioning. ([facility]) F. Received fresh labeled with the patient's name and "deep margin" is a 0.5 x 0.5 x 0.4 cm irregular piece of potts-pink tissue. The specimen is entirely submitted in cassette F1FS for frozen and permanent sectioning. ([facility]) G. Received fresh, labeled with the patient's [...] one slice bisected). G10 6:00 margin, serially secti... ] ASSESSMENT: 73 y.o. 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 RECOMMENDATIONS: We recommend adjuvant radiation therapy to decrease the risk of recurrence. The patient has intermediate risk factors including tumor size of 4.1cm, DOI 8mm, close margin of 3mm, +PNI. The patient lives in [place], [place] and would like to receive her RT at [facility]. We also discussed dental evaluation prior to RT. Ayde Rao PGY3 Radiation Oncology Resident Pager # [phone] ATTESTATION I personally performed the mac portions of the E/M visit, discussed case with resident and concur with resident documentation of history, physical exam, assessment, and treatment plan unless otherwise noted. Staff name: Michael Landeros MD Date: 07/25/2018 CC: A copy of this note has been sent to the referring provider, Radha Mason MD. in this encounter Plan of Treatment Not on fileas of this encounter Visit Diagnoses Diagnosis 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, unspecified site
--- OUTSIDE RECORDS SUMMARY | 2018-08-20 08:35 | XMS REPORT | Encounter Summary ---
Author Author [facility] Organization [facility] Address Unknown Phone Unavailable Care Team Providers Care Drum Sealer Name Role Phone AriasHyacinth wei PCP Encounter Details Date Type Department Care Team Description 07/18/2018 Procedure Pass [facility] Operating Room [address] [place] [address] Social History Tobacco Use Types Packs/Day Years Used Date Former Smoker Cigarettes 1.5 50 Quit: 06/27/2008 Smokeless Tobacco: Never Used Alcohol Use Drinks/Week oz/Week Comments Yes 4 Cans of 2.4 beer Sex Assigned at Date Recorded Not on file as of this encounter Plan of Treatment Not on fileas of this encounter Visit Diagnoses Not on filein this encounter
--- OUTSIDE RECORDS SUMMARY | 2018-08-20 08:35 | XMS REPORT | Encounter Summary ---
Author Author [facility] Organization [facility] Address Unknown Phone Unavailable Care Team Providers Care System Safety Manager Name Role Phone Hyacinth Arias DO PCP Reason for Visit * Auth/Cert Status Reason Specialty Diagnoses / Referred By Referred To Procedures Contact Contact Diagnoses Oral cancer (HCC) Oral cancer (HCC) [C06.9] P rocedures WI CERVICAL LYMPHADEC MODIFIED RADICAL NECK DSJ WI GLOSSECTOMY HEMIGLOSSECTOMY WI FREE FASCIAL FLAP W/MICROVASCULAR ANASTOMOSIS CERVICAL LYMPHADENECTOMY GLOSSECTOMY/ HEMIGLOSSECTOMY TISSUE TRANSFER FREE FASCIAL FLAP WITH MICROVASCULAR ANASTOMOSIS Encounter Details Date Type Department Care Team Description 07/18/2018 Anesthesia [place] Operating Room De Gonzales MD Event [address] [facility] [address] [place] [id number] [address] [place], [place] [id number] Anesthesia Record Procedure Name Responsible Anesthesia Start Time Anesthesia Stop Time Anesthesiologist EXPLORATION POSTOPERATIVE De Gonzales MD 07/18/18 0850 07/18/18 1055 WOUND - NECK (N/A ) Date Time Event Comment 733 AN Equip Check 2018 0850 Anes Start 0850 An Start Data 0850 In Room 0857 An Induction The patient was reevaluated immediately before moderate or deep sedation use and before anesthesia induction. 0857 Quick Note Patient's trach connected to anesthesia machine circuit. 1 unit of pRBCs continued from the floor. 0902 Anesthesia Ready 0940 Proc Start 1045 an stop data 1045 Transport Transported back to ICU spontaneously ventilating on 4L O2 via trach shield 1055 Handoff to RN I completed my SBAR handoff to the receiving nurse. 1055 An Stop Meds Name Total midazolam (VERSED) 1 mg/mL injection 2 mg fentaNYL PF (SUBLIMAZE) injection 100 mcg ondansetron (ZOFRAN) injection 4 mg dexamethasone (DECADRON) 4 mg/mL 4 mg injection dextran 70/hypromellose (GENTEAL TEARS; 2 drop BION TEARS) ophthalmic solution ePHEDrine 50 mg/mL 50 mg in sodium 20 mg chloride PF 0.9% 5 mL IV syringe electrolyte-A (PLASMA-LYTE A PH 7.4) 200 mL infusion albumin 5% infusion (500 mL) 500 mL * Name O2 N2O Inspired Isoflurane * No blood administrations on file. Type Details Placement Removal ETT 07/17/18; 816; Ventilated by mask (1); 07/17/18816 by Juan, Direct laryngoscopy, Stylet; Kelly Posada MD Single-Lumen; 7mm; Mac; 3; Oral; 1-Full view of the glottis; 2 insertion attempts (first unsuccessful, second attempt successful ); Auscultation, ETCO2 Detector; 21 centimeters; atraumatic, dentition unchanged Wounds 07/17/18; 1052; Arm; Surgical Incision; 07/17/18 1052 by Oscar, (NOT for sutures,jacqueline,xeroform Eileen, RN Pressure bolster,softroll,splint,kerlix,sally Injuries) Wounds 07/17/18; 1052; Leg; Surgical Incision; 07/17/18 1052 by [place], (NOT for telfa, tegaderm,kerlix,sally Eileen, RN Pressure Injuries) Wounds 07/17/18; 1052; Chin to Neck to Chest; 07/17/18 1052 by Oscar, (NOT for Surgical Incision; sutures, bacitracin Eileen, RN Pressure Injuries) Wounds 07/17/18; 1052; Other (Comment); 07/17/18 1052 by Oscar, (NOT for Surgical Incision; mouth: sutures Eileen, RN Pressure Injuries) Surgical 07/17/18; 1515; Cuffed; 7.0; Armorred 07/17/18 1515 by Airway ETT in [facility] site was in place when Je Doherty CRNA assumed pt care. Peripheral 07/17/18; 1600; RN; R; Antecubital; 20 07/17/18 1600 by KENNETH Martinez G; 1 Kelly Posada MD Wounds 07/17/18; 1926; Chest; Surgical 07/17/18 1926 by Christopher, (NOT for Incision; sutures, jacqueline SANTI Bailey Pressure Injuries) Pressure 07/17/18; 2300; Y; Right, Mid; Buttocks; 07/17/18 2300 by Gallegos , Injury Stage 2 Echo, SANTI Peripheral 07/17/18; 0730; RN; R; Mid; Forearm; 20 07/17/18 0730 by Harness, 07/19/18 1652 by Clarence, IV G; 1; 07/19/18; 1652 SANTI Rader RN Arterial 07/17/18; 0821; R; Radial; 20 G; 1; 07/17/18 0821 by Juan, 1123 by [place], Line 07/20/18; 1123; N; Correct Patient, MD Italia Collins RN Correct Patient Position, Correct Procedure, Correct Equipment / Implants Available, Marking Waived, Not Side Specific Indwelling 07/17/18; 0825; 16 FR; Regular (Two-way) 07/17/18 0825 by Oscar, 07/19/18 1824 by Clarence Urinary (temp-sensing); 07/19/18; 1824 SANTI Arellano RN Catheter Red 07/17/18; 1023; Left Nare; 18FR; 07/17/18 1023 by Oscar, 07/21/18 0700 by Moises Oscar 07/21/18; 0700 SANTI Arellano RN NG Tube Rahul 07/17/18; 1315; Left, Lower; Arm; 19 FR; 07/17/18 1315 by Oscar, 07/24/18 0800 by Verónica Mccullough #1; 07/24/18; 0800; Per Provider SANTI Arellano RN Drain Rahul 07/17/18; 2026; Left; Chest; 19 FR; #2; 07/17/182026 by Christopher, 07/22/18 1030 by Verónica Oscar 07/22/18; 1030; Per Provider SANTI Bailey RN Drain Rahul 07/17/18; 2027; Left; Chest; 19 FR; #3; 07/17/18 202 by Christopher, 07/24/18 0800 by Verónica Mccullough 07/24/18; 0800; Per Provider SANTI Bailey RN Drain Rauhl 07/17/18; 2037; Right; Neck; 19 FR; #4; 07/17/18 203 by Christopher, 07/22/18 1030 by Verónica Oscar 07/22/18; 1030 SANTI Bailey RN Drain Rahul 07/17/18; 2138; Left; Neck; 19 FR; #5; 07/17/18 2139 by Christopher, 07/18/18 0920 by Verónica Spann 07/18/18; 0920; Per Provider SANTI Bailey RN Drain Tracheosto 07/17/18; 2202; 6.0; Cuffed, Shiley; 07/17/18 2202 by Christopher, 07/23/18 0806 by Ice, my Tube 07/23/18; 0806 SANTI Bailey RN Jackson 07/18/18; 1012; Left; Neck; 19 FR; #5; 07/18/18 1012 by Zana, 0800 by Verónica Oscar 07/21/18; 0800; Per Provider SANTI Mclaughlin RN Drain Wounds 07/18/18; 1059; Leg; Surgical Incision; 07/18/18 1059 by Zana 213 by Rosy, (NOT for 07/18/18 (Double charted ); 2137 SANTI Mclaughlin RN Pressure Injuries) in this encounter Social History Tobacco Use Types Packs/Day Years Used Date Former Smoker Cigarettes 1.5 50 Quit: 06/27/2008 Smokeless Tobacco: Never Used Alcohol Use Drinks/Week oz/Week Comments Yes 4 Cans of 2.4 beer Sex Assigned at Date Recorded Not on file as of this encounter OR Notes * Anesthesia Postprocedure Evaluation - De Gonzales MD - 07/18/2018 11: 08 AM CDT Formatting of this note may be different from the original. Post-Anesthesia Evaluation Name: Yeimy Lima : 1945 Age: 73 y.o. Sex: female Procedure Date: 07/18/2018 Procedure: Procedure(s): EXPLORATION POSTOPERATIVE WOUND - NECK Surgeon: Surgeon(s): Abdi Alexandre MD Le, Tran B, MD Post-Anesthesia Vitals ART 112/82 HR 75 SpO2 100% RR 14 Temp 36.5 Post Anesthesia Evaluation Note Evaluation location: ICU Patient participation: recovered; patient participated in evaluation Level of consciousness: sleepy but conscious Pain score: 0 Pain management: adequate Hydration: normovolemia Temperature: 36.0C - 38.4C Airway patency: adequate Perioperative Events Perioperative events: no Post-op nausea and vomiting: no PONV Postoperative Status Cardiovascular status: hemodynamically stable Respiratory status: spontaneous ventilation and supplemental oxygen Additional comments: Ventilator settings: N/A Vasoactive Drips: N/A Blood products/Hemostatic Agents/Anticoagulants: PRBCs: 1 units (continued from floor pre-operativ Special Considerations: N/A The patient was admitted to the ICU under care of the critical care team. This information was communicated between anesthesia and the receiving team. ICU Information Blood Products Given-yes PRBC units given: 1 NSICU information no ICP monitor used no anticonvulsants were given Staff involved in transport include: anesthesiologist, surg resident, surgeon and anes resident Perioperative Events ATTESTATION Post-Anesthesia Evaluation and ICU Transfer Note Attestation: I evaluated the patient and the indicated post-anesthesia care is discharge and transfer to the ICU physician-lead team. Staff name: De Gonzales MD Date: 07/18/2018 * Anesthesia Preprocedure Evaluation - De Gonzales MD - 07/18/2018 8:11 AM CDT Formatting of this note may be different from the original. Anesthesia Pre-Procedure Evaluation Name: Yeimy Lima : 1945 Age: 73 y.o. Sex: female Procedure Date: 07/18/2018 Procedure: Procedure(s): EXPLORATION POSTOPERATIVE WOUND - NECK Physical Assessment Vital Signs (last filed in past 24 hours): BP: 106/46 (07/18 08) ABP: 94/41 (07/18 700) Temp: 35.9 C (96.7 F) (07/18 800) Pulse: 73 (07/18 800) Respirations: 15 PER MINUTE (07/18 800) SpO2: 97 % (07/18 800) O2 Delivery: Trach Shield (07/18 0000) Height: 144.8 cm (57.01") (07/17 2253) Weight: 51.9 kg (114 lb 6.7 oz) (07/17 2253) Patient History Past Medical History: Diagnosis Date Acid reflux controlled with omeprazole Afib (HCC) Arthritis Hyperlipidemia Hypertension Oral cancer (HCC) Past Surgical History: Procedure Laterality Date HX HIP REPLACEMENT Right 2003 HIP SURGERY Right 2008 3 surgeries 2/2 infection in joint area CARDIOVERSION 2009 BIOPSY 2015, 2017 tongue REVISION TOTAL HIP ARTHROPLASTY ~2008 No Known Allergies Current Medications Medication Directions aspirin EC 81 mg tablet Take 81 mg by mouth daily. Take with food. atenolol (TENORMIN) 50 mg tablet Take 50 mg by mouth daily. calcium carbonate-vitamin D3 (CALTRATE WITH VITAMIN D3) 600 mg(1,500mg) -800 unit tab Take 1 tablet by mouth daily. cyanocobalamin 1,000 mcg tablet Take 1,000 mcg by mouth daily. fish oil- omega 3-DHA/EPA 300/1,000 mg capsule Take 1 capsule by mouth daily. fluticasone (FLONASE) 50 mcg/actuation nasal spray Apply 2 sprays to each nostril as directed daily. Shake bottle gently before using. HYDROcodone/acetaminophen (NORCO) 5/325 mg tablet Take 1 tablet by mouth every 6 hours as needed for Pain lisinopril (PRINIVIL; ZESTRIL) 10 mg tablet Take 10 mg by mouth daily. loratadine (CLARITIN) 10 mg tablet Take 10 mg by mouth every morning. omeprazole DR(+) (PRILOSEC) 40 mg capsule Take 40 mg by mouth daily before breakfast. simvastatin (ZOCOR) 40 mg tablet Take 40 mg by mouth at bedtime daily. vitamins, multiple cap Take 1 capsule by mouth daily. warfarin (COUMADIN) 5 mg tablet 5mg on Wed and Fri 7.5mg on Sun, Mon, Tues, Thur, Sat Review of Systems/Medical History Patient summary reviewed Nursing notes reviewed Pertinent labs reviewed PONV Screening: Female gender, Postoperative opioids and Non-smoker No history of anesthetic complications No family history of anesthetic complications Airway Prior tracheostomy Currently has 6.0 cuffed shiley, on trach shield with 5L Pulmonary Not a current smoker (quit 2007) No sleep apnea Cardiovascular Exercise tolerance: >4 METS (can do housework) Beta Fabiola therapy: Yes Beta blockers within 24 hours: No Hypertension, well controlled Valvular problems/murmurs (states mitral valve will eventually need to be replaced but unsure of diagnosis): MR No past UT, No palpitations Dysrhythmias (s/p failed cardioversion; anticoagulated); atrial fibrillation No DVT Hyperlipidemia (on statin) No orthopnea Dyspnea on exertion (heavy exertion) Follows with cards q 6 months GI/Hepatic/Renal GERD (on daily PPI), well controlled No hx of liver disease No renal disease Neuro/Psych No seizures No CVA No indications/hx of Parkinson's disease Musculoskeletal Neck pain Arthritis Endocrine/Other No diabetes Anemia No autoimmune disease Malignancy (oral cancer 2007 s/p resection; recurrance ) Physical Exam Airway Findings Mallampati: III TM distance: >3 FB Neck ROM: full Mouth opening: good Airway patency: adequate Pre-existing airway: tracheostomy Dental Findings: Negative Cardiovascular Findings: Rhythm: irregular Rate: normal No murmur, no carotid bruit, no peripheral edema Comments: A.fib Pulmonary Findings: Breath sounds clear to auscultation. Abdominal Findings: Abdomen soft Bowel sounds normal. Neurological Findings: Normal mental status Comments: alert and oriented Diagnostic Tests Hematology: Lab Results Component Value Date HGB 8.1 07/18/2018 HCT 24.5 07/18/2018 PLTCT 153 07/18/2018 WBC 8.7 07/18/2018 NEUT 69 07/17/2018 ANC 3.80 07/17/2018 ALC 1.10 07/17/2018 JESICA 7 07/17/2018 AMC 0.40 07/17/2018 EOSA 3 07/17/2018 ABC 0.00 07/17/2018 MCV 93.6 07/18/2018 MCH 31.1 07/18/2018 MCHC 33.3 07/18/2018 MPV 7.6 07/18/2018 RDW 15.5 07/18/2018 General Chemistry: Lab Results Component Value Date NA 131 07/18/2018 K 3.9 07/18/2018 CL 101 07/18/2018 CO2 22 07/18/2018 GAP 8 07/18/2018 BUN 12 07/18/2018 CR 0.82 07/18/2018 GLU 175 07/18/2018 CA 7.7 07/18/2018 OBSCA 1.08 07/17/2018 MG 1.4 07/18/2018 PO4 4.0 07/18/2018 Coagulation: Lab Results Component Value Date PTT 22.6 07/17/2018 INR 1.1 07/17/2018 Anesthesia Plan ASA score: 3 Plan: general and invasive monitoring Induction method: inhalational NPO status: acceptable Informed Consent Anesthetic plan and risks discussed with patient. Use of blood products discussed with patient Blood Consent: consented Plan discussed with: anesthesiologist and resident. Comments: (Patient has 20G and 18G PIV, right radial a-line. Receiving 1 unit pRBCs on the floor prior to going to OR. ) EKG: a fib; LVH Addendum: Na was 129 on 07/04. Ranges between 130-136 earlier in year. echo 2016 showed EF 60%, MR,TR, AR ( trivial/mild) AV sclerosis without stenosis Stress test 02/2017 no evidence of ischemia or infarction, normal regional wall motion in this encounter Plan of Treatment Not on fileas of this encounter Visit Diagnoses Not on filein this encounter Administered Medications Medication Order MAR Action Action Date Dose Rate Site albumin 5% infusion (500 mL) Given - New 07/18/2018 INTRA-PROCEDURE MED(CONT), Starting Mon Bag 09:07 CDT 07/18/18 at 0907, Until Mon07/18/18 at 1108, Anesthesia Intra-op dexamethasone (DECADRON) injection Given 07/18/2018 4 mg Intravenous, INTRA-PROCEDURE MED, 10:05 CDT Starting 07/18/18 at 1005, Until Mon07/18/18 at 1108, Nausea/Vomiting Injectable, Anesthesia Intra-op dextran 70/hypromellose (GENTEAL TEARS; Given 07/18/2018 2 drops BION TEARS) ophthalmic solution 08:58 CDT INTRA-PROCEDURE MED, Starting Mon07/18/18 at 0858, Until Mon07/18/18 at 1108, Dry Eyes, Anesthesia Intra-op electrolyte-A (PLASMA-LYTE A PH 7.4) Given - New 07/18/2018 injection Bag 08:51 CDT INTRA-PROCEDURE MED(CONT), Starting Mon07/18/18 at 0851, Until Mon07/18/18 at 1108, Anesthesia Intra-op ePHEDrine 50 mg/mL 50 mg in sodium Given - New 07/18/2018 10 mg chloride PF 0.9% 5 mL IV syringe Bag 09:04 CDT 5 mL, INTRA-PROCEDURE MED(CONT), Starting Mon07/18/18 at 0904, Until Mon07/18/18 at 1108, Anesthesia Intra-op Bolus 07/18/2018 10 mg 09:11 CDT fentaNYL citrate PF (SUBLIMAZE) Given 07/18/2018 50 mcg injection 09:34 CDT INTRA-PROCEDURE MED, Starting Mon07/18/18 at 0934, Until Mon07/18/18 at 1108, Pain Injectable, Anesthesia Intra-op Given 07/18/2018 50 mcg 10:02 CDT midazolam (VERSED) injection Given 07/18/2018 2 mg Intravenous, INTRA-PROCEDURE MED, 08:57 CDT Starting Mon07/18/18 at 0857, Until Mon07/18/18 at 1108, Agitation Injectable, Anxiety Injectable, Anesthesia Intra-op ondansetron (ZOFRAN) injection Given 07/18/2018 4 mg Intravenous, INTRA-PROCEDURE MED, 10:25 CDT Starting Mon07/18/18 at 1025, Until Mon07/18/18 at 1108, Nausea/Vomiting Injectable, Anesthesia Intra-op in this encounter
--- OUTSIDE RECORDS SUMMARY | 2018-08-20 08:35 | XMS REPORT | Encounter Summary ---
Author Author [facility] Organization [facility] Address Unknown Phone Unavailable Care Team Providers Care Director Of Real Estate Name Role Phone Hyacinth Arias DO PCP Reason for Visit * Auth/Cert Status Reason Specialty Diagnoses / Referred By Referred To Procedures Contact Contact Diagnoses Oral cancer (HCC) Oral cancer (HCC) [C06.9] P rocedures [place] CERVICAL LYMPHADEC MODIFIED RADICAL NECK DSJ [place] GLOSSECTOMY HEMIGLOSSECTOMY [place] FREE FASCIAL FLAP W/MICROVASCULAR ANASTOMOSIS CERVICAL LYMPHADENECTOMY GLOSSECTOMY/ HEMIGLOSSECTOMY TISSUE TRANSFER FREE FASCIAL FLAP WITH MICROVASCULAR ANASTOMOSIS Encounter Details Date Type Department Care Team Description 07/17/2018 Hospital [facility]6 J Luis Flores MD Squamous cell carcinoma - Encounter [id number] [facility] [address] 07/24/2018 [place] [address] [address] [place], [place] [id number] B Abdi diallo MD [address] [place] [address] [phone] Social History Tobacco Use Types Packs/Day Years Used Date Former Smoker Cigarettes 1.5 50 Quit: 06/27/2008 Smokeless Tobacco: Never Used Alcohol Use Drinks/Week oz/Week Comments Yes 4 Cans of 2.4 beer Sex Assigned at Date Recorded Not on file as of this encounter Last Filed Vital Signs Vital Sign Reading Time Taken Blood Pressure 135/60 07/24/2018 10:01 AM CDT Pulse 51 07/24/2018 10:01 AM CDT Temperature 36.5 C (97.7 F) 07/24/2018 10:01 AM CDT Respiratory Rate - - Oxygen Saturation 97% 07/24/2018 10:01 AM CDT Inhaled Oxygen - - Concentration Weight 51.9 kg (114 lb 6.7 oz) 07/17/2018 10:53 PM CDT Height 144.8 cm (4' 9.01") 07/17/2018 10:53 PM CDT Body Mass Index 24.75 07/17/2018 10:53 PM CDT in this encounter Functional Status Functional Status Response Date of Assessment Does the patient have a hearing impairment: No 07/19/2018 as of this encounter Discharge Summaries * Abdi Alexandre MD - 07/24/2018 2:04 PM CDT Formatting of this note may be different from the original. Physician Discharge Summary Name: Yeimy Lima Date Of : 1945 Age: 73 years Admit date: 07/17/2018 Discharge date: 07/24/2018 Attending Physician: Dr. Abdi Alexandre Service: Otolaryngology-Head & Neck Physician Summary completed by: SUMMER Aaron Reason for hospitalization: Yeimy Lima is a 73 y.o. femalewith history of oral cancer admitted for flap surgery. Significant PMH: Past Medical History: Diagnosis Date Acid reflux controlled with omeprazole Afib (HCC) Arthritis Hyperlipidemia Hypertension Oral cancer (HCC) Allergies: Patient has no known allergies. Admission Physical Exam notable for: PHYSICAL EXAM: Vital Signs: BP 159/72 (BP Source: Arm, Left Upper, Patient Position: Sitting) | Pulse 73 | Ht 147.3 cm (58") | Wt 52.6 kg (116 lb) | BMI 24.24 kg/m General: Well-developed, well-nourished Communication and Voice: Clear pitch and clarity Hearing: Hearing adequate for verbal communication bilaterally Inspection: Normocephalic and atraumatic without mass or lesion Palpation: Facial skeleton intact without bony stepoffs Parotid Glands: No mass or tenderness Facial Strength: Facial motility symmetric and full bilaterally Pinna: External ear intact and fully developed External canal: Canal is patent with intact skin Tympanic Membrane: Clear and mobile External nose: No scar or anatomic deformity Internal Nose: Septum intact and midline. No edema, polyp, or rhinorrhea. TMJ: No pain to palpation with full mobility Oral cavity, Lips, Teeth, and Gums: Mucosa and teeth intact and viable. Ulcerative lesion of the left anterolateral oral tongue extending to floor of mouth. Oropharynx: No erythema or exudate, no masses or ulcerations, non-obstructive tonsils Nasopharynx: No mass or lesion with intact mucosa Hypopharynx: No masses or ulcerations, normal mucosa without pooling of secretions Larynx: Normal supraglottic and glottic structures without masses or ulcerations, normal vocal fold mobility Neck, Trachea, Lymphatics: Midline trachea without mass or lesion, palpable 1B node approximately 2 cm. Thyroid: No mass or nodularity Eyes: No nystagmus with equal extraocular motion bilaterally Neuro/Psych/Balance: Patient oriented and appropriate in interaction; Appropriate mood and affect; Gait is intact with no imbalance; Cranial nerves I -XII are intact Respiratory effort: Equal inspiration and expiration without stridor Peripheral Vascular: Warm extremities with equal pulses. Cash's test with good perfusion on left. Has small abrasion on left forearm. Small scar from skin lesion removed 30 years ago. Admission Lab/Radiology studies notable for: 2018 CT / PET External imaging noted and reviewed Outside pathology noted and reviewed PATHOLOGY REVIEW: Invasive SCCa left lateral tongue 05/2018 RADIOLOGIC REVIEW: 06/12/18 PET: IMPRESSION: Intense hypermetabolism in the left anterior aspect of the floor of the mouth, consistent with recurrent neoplasm. SUV max 10. 06/12/18 CT Neck: IMPRESSION: Ovoid mass of the floor of the mouth anteriorly and to the left. There is also a prominent left submandibular lymph node which may be metastatic. 06/12/18 CT Chest: IMPRESSION: No evidence of thoracic lymphadenopathy or pulmonary metastatic disease. Brief Hospital Course: Yeimy Lima is a 73 y.o. female with history of Oral cancer who presented for the operations listed below, which were completed without complication. The patient was admitted post-operatively to the ICU for further management. We performed visual flap checks of the pec flap every 4 hours. Patient went back to OR on 07/18 for neck exploration and concerns for flap compromise. Patient had noted hematoma which was evacuated. Patient progressed well. Tube feedings were advanced to bolus as tolerated. Patient was then transferred to floor where flap was checked twice daily. Tracheostomy tube was changed to cuff less on post op day 5. Patient was progressively mobilized with physical therapy. On post op day 7, donor site cast was taken down and all drains removed. On day of discharge, patient had stable vital signs , with pain controlled, and tolerating feeding. Flap, wounds, and all incisions remained healthy. Please refer to operative procedure notes and daily progress notes for further detail. The patient will follow up at the ENT clinic Condition at Discharge: Stable Discharge Diagnoses: Hospital Problems Active Problems Squamous cell carcinoma Acid reflux A-fib (HCC) HTN (hypertension) Anemia associated with acute blood loss Dysphagia Stage II Pressure Ulcer of the Right Mid buttock, present on admission Surgical Procedures: Left hemiglossectomy Bilateral modified radical neck dissection Tracheostomy Left fasciocutaneous radial forearm free flap. Left pectoralis major myocutaneous flap. Split-thickness skin graft from left thigh. Neck exploration 07/18. Significant Diagnostic Studies and Procedures: Final Diagnosis: A. Squamous mucosa, "anterior dorsal [...] status and/or prior pathology. Pursuant to the Smoke Jumper Supervisor Program at the [facility] Pathology Department, selected slides from this case have been concurrently reviewed by the following pathologist: Dr. Downs, who agrees with the final diagnosis. Consults: Radiation Oncology Patient Disposition: Home with Home Health Care Patient instructions/medications: Driving Restrictions No driving while taking pain medication. Lifting Restrictions Do not lift more than 10 pounds for 2 week(s). Strenuous Activity Restrictions Please refrain from strenuous activity for 2 week(s). Report These Signs and Symptoms Please contact your doctor if you have any of the following symptoms: temperature higher than 100 degrees F, uncontrolled pain, persistent nausea and/ or vomiting, difficulty breathing, chest pain, severe abdominal pain, headache, unable to urinate, unable to have bowel movement, drainage with a foul odor or Questions About Your Stay For questions or concerns regarding your hospital stay. Call [phone] Discharging attending physician: ABDI ALEXANDRE [[id number]] Tube Feeding 1 carton (250 mL) Isosource 1.5 4 times per day + 1/2 carton (125 mL) Isosource 1.5 everyday. 30 mL free H20 before and after each bolus and 150 mL free H20 every 6hrs between tube feeds. Home Care Instructions: *Please remember to flush/rinse tube with water or normal saline after feed. This will help prevent the tube from clogging. *Don't keep cans of formula open for more than 24 hours. *Stop feeding if you become nauseated or begin vomiting. Hold the next feeding for 1 hour. *Make sure you are sitting up during and after feeding. *Give bolus or syringe feeding over 20 minutes. Feedings given too fast can cause cramping and loose stools. Wound Care Keep wound clean and dry. Do not submerge under water. Incision Wounds: Wash hands before touching wound sites. Apply Vaseline to wounds after each cleaning to prevent crusting. May shower over wounds (do not soak with water). Pat wounds dry after showering. If there are blue skin stitches in your wound, they are to stay in place until your follow-up appointment. Clear-colored skin stitches will dissolve from the wounds on their own. Skin Graft Donor Site: Your leg skin graft sites are covered with a moist, yellow piece of gauze that is infused with antibiotics called Xeroform. As your sites heal, the Xeroform will become dry around the edges. Trim the edges of this gauze as they loosen and peel off the skin. While the Xeroform is still covering the graft site, keep the graft site dry and away from water at all times. May start showering over graft site (do not soak with water) once Xeroform gauze is gone. Free Flap Donor Site: Change your arm dressing every other day with Xeroform over the skin graft and a Kerlix or gauze roll wrapped around it. Keep the donor site dry and away from water at all times. The skin stitches will dissolve from the wounds on their own. Oral Care: may gently swab mouth moistened sponges Tracheostomy Care: Suction your tracheostomy tube every 2 hours and as needed to minimize secretions. [place] alkalol to the stoma every two hours as needed to prevent crusting. May apply 2-3 drops of normal saline through the tracheostomy tube to loosen thick secretions as needed. Apply high humidity room air to tracheostomy tube at all times while tube is uncapped. Clean inner cannula with warm soap and water twice daily. Keep a spare tracheostomy tube and obturator by your side at all times. Other resources on tracheostomy care: Go to [email or web address] website. Click on "Living with a Ventilator" tab then click on the "More" link Click on "Adult Tracheostomy Home Care Videos" on the right lower side of the page and that will bring up the Adult Tracheostomy Home Care Video Chapter 1-5 and the Adult Tracheostomy Home Care Guide. Opioid (Narcotic) Safety Information OPIOID (NARCOTIC) PAIN MEDICATION SAFETY We care about your comfort, and believe you need opioid medications at this time to treat your pain. An opioid is a strong pain medication. It is only available by prescription for moderate to severe pain. Usually these medications are used for only a short time to treat pain, but sometimes will be prescribed for longer. Talk with your doctor or nurse about how long they expect you to need this medication. When used the right way, opioids are safe and effective medications to treat your pain, even when used for a long time. Yet, when used in the wrong way, opioids can be dangerous for you or others. Opioids do not work for everyone. Most patients do not get full relief of their pain from opioid medication; full relief of your pain may not be possible. For your safety, we ask you to follow these instructions: *Only take your opioid medication as prescribed. If your pain is not controlled with the prescribed dose, or the medication is not lasting long enough, call your doctor. *Do not break or crush your opioid medication unless your doctor or pharmacist says you can. With certain medications, this can be dangerous, and may cause . *Never share your medications with others, even if they appear to have a good reason. Never take someone else's pain medication-this is dangerous, and illegal (a crime). Overdoses and deaths have occurred. *Keep your opioid medications safe, as you would with del valle, in a lock box or similar container. *Make sure your opioids are going to be secure, especially if you are around children or teens. *Talk with your doctor or pharmacist before you take other medications. *Avoid driving, operating machinery, or drinking alcohol while taking opioid pain medication. This may be unsafe. Pain medications can cause constipation. Constipation is bowel movements that are less often than normal. Stools often become very hard and difficult to pass. This may lead to stomach pain and bloating. It may also cause pain when trying to use the bathroom. Constipation may be treated with suppositories, laxatives or stool softeners. A diet high in fiber with plenty of fluids helps to maintain regular, soft bowel movements. Return Appointment You have a follow up appointment at our ENT clinic in the Medical Office Building on 07/31/2018 at 1000 am with Ben Cook PA-C If you have any questions, need to be seen sooner or change your appointment please call M-F [phone] pm. If you have any questions not during office hours please call [phone] and ask for the ENT Resident conversion worker. Home Health to draw INR on 07/26 and will communicate results and for further Warfarin management with Dr. Salvador Zamarripa Current Discharge Medication List START taking these medications Details acetaminophen (TYLENOL) 160 mg/5 mL oral solution 20.3 mL by Per NG tube route every 4 hours. Max of 4,000 mg of acetaminophen in 24 hours. Qty: 240 mL, Refills: 0 PRESCRIPTION TYPE: Print docusate (COLACE) 50 mg/5 mL oral solution 10 mL by Per NG tube route twice daily. Qty: 500 mL, Refills: 0 PRESCRIPTION TYPE: Print oxyCODONE (ROXICODONE) 1 mg/mL oral solution 5-15 mL by Per NG tube route every 4 hours as needed Earliest Fill Date: 07/24/18 Qty: 500 mL, Refills: 0 PRESCRIPTION TYPE: Print CONTINUE these medications which have NOT CHANGED Details aspirin EC 81 mg tablet Take 81 mg by mouth daily. Take with food. PRESCRIPTION TYPE: Historical Med atenolol (TENORMIN) 50 mg tablet Take 50 mg by mouth daily. PRESCRIPTION TYPE: Historical Med calcium carbonate-vitamin D3 (CALTRATE WITH VITAMIN D3) 600 mg(1,500mg) -800 unit tab Take 1 tablet by mouth daily. PRESCRIPTION TYPE: Historical Med cyanocobalamin 1,000 mcg tablet Take 1,000 mcg by mouth daily. PRESCRIPTION TYPE: Historical Med fish oil- omega 3-DHA/EPA 300/1,000 mg capsule Take 1 capsule by mouth daily. PRESCRIPTION TYPE: Historical Med fluticasone (FLONASE) 50 mcg/actuation nasal spray Apply 2 sprays to each nostril as directed daily. Shake bottle gently before using. PRESCRIPTION TYPE: Historical Med lisinopril (PRINIVIL; ZESTRIL) 10 mg tablet Take 10 mg by mouth daily. PRESCRIPTION TYPE: Historical Med loratadine (CLARITIN) 10 mg tablet Take 10 mg by mouth every morning. PRESCRIPTION TYPE: Historical Med omeprazole DR(+) (PRILOSEC) 40 mg capsule Take 40 mg by mouth daily before breakfast. PRESCRIPTION TYPE: Historical Med simvastatin (ZOCOR) 40 mg tablet Take 40 mg by mouth at bedtime daily. PRESCRIPTION TYPE: Historical Med vitamins, multiple cap Take 1 capsule by mouth daily. PRESCRIPTION TYPE: Historical Med warfarin (COUMADIN) 5 mg tablet 5mg on Wed and Fri 7.5mg on Sun, Mon, Tues, Thur, Sat PRESCRIPTION TYPE: Historical Med The following medications were removed from your list. This list includes medications discontinued this stay and those removed from your prior med list in our system HYDROcodone/acetaminophen (NORCO) 5/325 mg tablet Scheduled appointments: Jul 31, 2018 10:00 AM CDT Post - Op with Adithya Cook PA-C [facility] ([facility]) [facility] [address] [facility] [id number] Pending items needing follow up: Follow up ENT clinic Signed: SUMMER Aaron 07/29/2018 cc: Primary Care Physician: Hyacinth Arias Verified Referring physicians: Anroldo Olivares MD Additional provider(s): in this encounter Discharge Instructions * Discharge Instr - Case Management - Nalini Green - 07/23/2018 4:44 PM CDT Your home health agency is: [facility] P: [phone] F: [phone] and INR to be drawn by agency on and reported to [facility] Regulator Inspector Dr Salvador Zamarripa P: [phone] F: [phone]. Durable Medical Equipment: portable suction to be provided by [facility] (delivered to bedside prior to discharge) and home delivery of heated humidification and PEG tube feeds, (delivered to the home, same day as discharge) P: [phone] F: [phone] Pt verbalized understanding that medical appointments cannot occur on same day as physician appointments. * Patient Instructions - Kristin Lima RN - 07/20/2018 12:25 PM CDT Interventional Radiology Gastrostomy Tube (G-tube)Placement-Discharge Instructions A Gastrostomy tube or G-tube is a soft, narrow tube placed through the skin and stomach wall directly into the stomach. It is used to give feedings, fluids and medications. During or before the procedure, a small nasogastric tube is placed through your nose into your stomach in order to fill the stomach with air. This helps with tube placement and may make you feel full temporarily. Using fluoroscopy to guide placement, a small needle is placed through the skin and advanced into the stomach. In some cases, the tube may be advanced into the upper portion of the small intestines (the jejunum). These are then referred to as a G-J tube or a J-tube. You may also hear the tube referred to as a PEG which is a gastrostomy tube placed in an alternate manner using an endoscope. AFTER THE PROCEDURE: Your G-tube will be connected to a gravity drainage bag after placement. Keep bag connected for the first 12 hours post procedure. This is done to ensure the stomach remains decompressed and to identify any bleeding. Do not use the G-tube until 12 hours after the procedure. After 12 hours, you should disconnect the bag and begin using the tube by instilling small amounts of water (50-100ml) using a large feeding syringe. Feedings may begin 24 hours after the procedure, if water is tolerated. Be sure to flush G-tube with 50ml of water after each feeding. (Contact your referring physician for instructions on feeding.) You must flush your tube with at least 50ml water, twice daily until feedings start. POST-PROCEDURE ACTIVITY: A responsible adult must drive you home. You should not drive, operate heavy machinery or do anything that requires concentration for at least 24 hours after receiving sedation or anesthesia. It is recommended that a responsible adult be with you until morning. Avoid any exertion for one week. Exertion is lifting over 5 lbs., pushing, pulling or straining. Never use scissors, pins, or other sharp objects near the tube. Avoid bending, crimping or pulling on the tube. Be sure your hands are clean when touching near the tube site or near the suture lock sites. Do not use ointments, creams or powders around the site unless ordered by your physician. POST-PROCEDURE SITE CARE: Keep the dressing around the tube dry. Remove it in 1-2 days and leave the site open to air. For the first 2 days, clean around the tube site and the suture lock sites with warm water and mild soap. Rinse thoroughly and dry gently. You may use a cotton-tipped applicator or small piece of gauze. The suture locks look like small buttons around the tube. They typically detach from the abdomen and fall off in about 10 days as the sutures are absorbed. In rare cases, the suture locks do not fall off and must be removed by the physician. The sutures will usually absorb completely in about 3 months. You may shower after 48 hours and you should gently clean around the tube site while in the shower using mild soap. If you are unable to shower, continue to clean around the tube site and suture lock sites daily as described above. Do not submerge the tube site underwater (no tub bath, swimming/hot tub, etc. ) DIET/MEDICATIONS: If you are able to take oral feedings, begin with a clear liquid diet 12 hours after your tube is placed. If you are tolerating liquids with no distention or abdominal pain, you may begin to eat and drink 24 hours after the procedure. Begin with a clear liquid diet and advance to a normal diet as you can tolerate. Avoid any foods or beverages containing alcohol for at least 24 hours after receiving sedation or anesthesia. Please see attached Medication Reconciliation Sheet for instructions on resuming your home medications. If you are on blood thinning medications, you must contact your doctor who manages them to receive instructions on when to resume them and on when blood work should be done. WHEN TO CALL THE DOCTOR: (Please call [phone] for severe symptoms) You have bleeding from the tube site or through the tube. You are coughing up or vomiting blood or see blood in your stool. You have severe pain at the site or increasing abdominal discomfort. (Some soreness at the site is normal for a few days.) You have persistent nausea or vomiting. Redness, swelling around the tube (a small area of redness is normal). Fever greater than 101?F. Pus-like drainage from around the tube. You have a blocked tube, leaking around the tube site or the tube falls out. After 2 weeks, your suture locks have not fallen off. For any of the above symptoms or for problems or concerns related to the procedure,[phone] for Monday-Monday 7-5. After-hours and weekends, please [phone] and ask for the Interventional Traffic Control Supervisor on-call. in this encounter Medications at Time of Discharge [...] daily. warfarin (COUMADIN) 5 mg 5mg on Mon and Mon 7.5mg tablet on Mon, Mon, , Thur, Sat as of this encounter Progress Notes * Tashia Avery - 07/24/2018 11:40 AM CDT SPEECH-LANGUAGE PATHOLOGY Orders rec'd and appreciated for speaking valve evaluation & treatment. At time of attempted visit this date pt's tracheostomy capped, and per discussion w / pt's RN, pt tolerating capping well w/ plans to d/c later this date. Thus, speaking valve evaluation not indicated. Chart review completed: The pt is a 73 y.o.femaleS/p Left hemiglossectomy , Bilateral modified radical neck dissection, Tracheostomy Left fasciocutaneous radial forearm free flap. Left pectoralis major myocutaneous flap., Split-thickness skin graft from left thigh 07/17. Neck exploration 07/18. Gtube placement 07/20. PMH: Patient has history of left floor of mouth cancer treated with primary excision. 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 Since that time she has been followed by outside ENT Dr. 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 She has had multiple biopsies that have been negative. In 2015 she had a 3 cm area on the left side of the tongue that was excised, pathology showed leukoplakia. Beginning in February of this year patient began experiencing more pain and the lesion has evolved to be more ulcerative. In May of this year she had a CT of her neck, PET scan, and CT of the chest, as well as a biopsy of the lesion which showed invasive squamous cell carcinoma. Therapist: Tashia Avery MA, L/LORETTA-J2EE APPLICATION DEVELOPER Voalte: [id number] Date: 07/24/2018 * Marisol Cruz RN - 07/24/2018 11:24 AM CDT Wound Ostomy Note NAME:Yeimy Lima :1945 AGE: 73 y.o. ADMISSION DATE: 07/17/2018 DAYS ADMITTED: LOS: 7 days Reason for Visit: pressure injury Stage II or greater Assessment/Plan: Active Problems: Squamous cell carcinoma Acid reflux A-fib (HCC) HTN (hypertension) Anemia associated with acute blood loss Dysphagia Attempted to see pt for f/u of right buttocks pressure injury. Pt politely declined assessment as she is discharging home today. Pt denies any pain or discomfort at wound site and reports she plans to continue with a zinc oxide barrier cream at home. This is an appropriate intervention for local wound care. Pt denies any other questions or concerns at this time. Our service will sign off. Thank you. Marisol Cruz RN, BSN, CWON Wound/Ostomy Nursing Consult Service Office: [phone] Pager: [phone] Wound/Ostomy Team Pager (After Hours/Weekends): [phone] * Yazmin Ryan, OXIDE FURNACE TENDER-MIDDLEWARE SYSTEMS ARCHITECT - 07/24/2018 10:04 AM CDT Formatting of this note may be different from the original. ZOILA/HNS PROGRESS NOTE Today's Date: 07/24/2018 Admission Date: 07/17/2018 LOS: 7 days Subjective No acute events overnight. Pain well-controlled. Objective Vital Signs: Last Filed Vital Signs: 24 Hour Range BP: 135/60 (07/24 1001) Temp: 36.5 C (97.7 F) (07/24 1001) Pulse: 51 (07/24 1001) Respirations: 16 PER MINUTE (07/24 1001) SpO2: 97 % (07/24 1001) O2 Delivery: None (Room Air) (07/24 1001) BP: (135-163)/(60-73) Temp: [36.4 C (97.5 F)-36.9 C (98.4 F)] Pulse: [51-94] Respirations: [16 PER MINUTE-18 PER MINUTE] SpO2: [96 %-100 %] O2 Delivery: None (Room Air) Intensity Pain Scale (Self Report): 2 (07/24/18 0055) Vitals: 07/17/18 0613 07/17/18 2253 Weight: 49.9 kg (110 lb) 51.9 kg (114 lb 6.7 oz) Intake/Output Summary: (Last 24 hours) Intake/Output Summary (Last 24 hours) at 07/24/18 1004 Last data filed at 07/24/18 0845 Gross per 24 hour Intake 1520 ml Output 25 ml Net 1495 ml Stool Occurrence: 1 Physical Exam Awake, alert, follows commands 6.0 Shiley cuffless trach Neck flat, incision c/d/i with sutures, no fluctuance Nares patent Chest incision c/d/i jacqueline removed no hematoma left axilla Flap soft, ecchymotic improved overall color, intra-oral sutures intact left Upper cast extremity dressing removed on rounds with 100 % STSG take at base Lower extremity STSG donor site -- xeroform trimmed Distal sensation, movement intact Respirations unlabored SCD's in place Lab Review Comprehensive Metabolic Profile Lab Results Component Value [...] 08:08 AM ABC 0.00 07/17/2018 08:08 AM Point of Care Testing (Last 24 hours) Glucose: (!) 110 (07/24/18 0598) Radiology and other Diagnostics Review: Final Diagnosis: A. Squamous mucosa, "anterior dorsal [...] status and/or prior pathology. Pursuant to the Smoke Jumper Supervisor Program at the [facility] Pathology Department, selected slides from this case have been concurrently reviewed by the following pathologist: Dr. Downs, who agrees with the final diagnosis. Problem List: Active Hospital Problems Diagnosis Anemia associated with acute blood loss Dysphagia Acid reflux A-fib (HCC) HTN (hypertension) Squamous cell carcinoma Assessment/Plan: Yeimy Lima is a 73 y.o. female S/p Left hemiglossectomy, Bilateral modified radical neck dissection, Tracheostomy Left fasciocutaneous radial forearm free flap. Left pectoralis major myocutaneous flap., Split-thickness skin graft from left thigh 07/17. Neck exploration 07/18. Gtube placement 07/20. ENT: All LENI drains removed, flap checks stable, incisional care, Trach care. sutures and jacqueline out this am. NEURO: Awake alert pain control adequate, OT/PT for mobilization. PULM:4.0 cuffless trach secured in place with soft tie. Capped on rounds. Teaching comlpeted. CV: VSS- Anemia improved. Warfarin restarted 07/21. Daily INR- 1.1 To follow up with home Piano Regulator Inspector to manage home Warfarin. Next draw as outpt. ID: Afebrile, 6.7 no leukocytosis, completed ppx FEN/GI: Gtube in place tolerating bolus TF Dietary following. SLIV. On bowel regimen. LBM- 07/23 : UOP adequate Voiding spontaneously PPX: SQH , SCD's, completed ppx abx DISP: Discharge home today with HH services. Follow up ENT clinic. Yazmin Ryan APRN Pager [phone] * Arnoldo Napoles - 07/23/2018 6:59 PM CDT Pharmacy Warfarin Teaching Yeimy Lima was provided with both verbal and written drug information about warfarin. Discussion with the patient included: the medication regimen, dosing, monitoring, possible adverse effects, food/drug interactions to be aware of and OTC/herbal medication use. Emphasis was placed on the importance of medication compliance. The patient was also encouraged to contact the pharmacist with any further questions. Spouse also present for education. Arnoldo Napoles 07/23/2018 * Kyung Gallegos PT - 07/23/2018 1:46 PM CDT PHYSICAL THERAPY PROGRESS NOTE MOBILITY: Mobility Progressive Mobility Level: Walk laps Distance Walked (feet): 620 ft Level of Assistance: Assist X1 Assistive Device: None Time Tolerated: 11-30 minutes Activity Limited By: No limitations SUBJECTIVE: Subjective Significant hospital events: 73 y.o. female POD#1 s/p left hemiglolssectomy, MRND 07/17; failed left forearm flap, returned to OR for left pectoral flap 07/18 Mental / Cognitive Status: Alert;Cooperative;Follows Commands Persons Present: Spouse Pain: Patient has no complaint of pain Precautions: ENT Surgery Precautions UE Precautions: LUE WBAT:Weight Bearing As Tolerated;Splint BED MOBILITY/TRANSFERS: Bed Mobility/Transfers Bed Mobility: Supine to Sit: Standby Assist;Head of Bed Elevated;No Rail Transfer Type: Sit to/from Stand Transfer: Assistance Level: To/From;Bed;Standby Assist Transfer: Assistive Device: None Transfers: Type Of Assistance: For Safety Considerations;For Balance End Of Activity Status: In Bed;Nursing Notified;Instructed Patient to Request Assist with Mobility;Instructed Patient to Use Call Light (bed alarm on) GAIT: Gait Gait Distance: 620 feet Gait: Assistance Level: Minimal Assist (for 2 losses of balance) Gait: Assistive Device: None Gait: Descriptors: Pace: Slow;Variable step length;Loss of balance Stairs: Number Climbed: 3 Stairs: Descriptors: Ascend;Descend;Non-Reciprocal Stairs: Assistance Level: Standby Assist Stairs: Assistive Device: One Rail EDUCATION: Education Persons Educated: Patient Patient Barriers To Learning: Impaired Communication Interventions: Repetition of Instructions;Family Education Teaching Methods: Verbal Instruction Patient Response: More Instruction Required Topics: Plan/Goals of PT Interventions;Mobility Progression;Safety Awareness;Up with Assist Only;Importance of Increasing Activity;Recommend Continued Therapy ASSESSMENT/PROGRESS: Assessment/Progress Impaired Mobility Due To: Decreased Strength;Pain;Impaired Balance;Safety Concerns;Decreased Activity Tolerance Assessment/Progress: Should Improve w/ Continued PT AM-PAC 6 Clicks Basic Mobility Inpatient Turning from your back to your side while in a flat bed without using bed rails : None Moving from lying on your back to sitting on the side of a flatbed without using bedrails : A Little Moving to and from a bed to a chair (including a wheelchair): A Little Standing up from a chair using your arms (e.g. wheelchair, or bedside chair): A Little To walk in hospital room: A Little Climbing 3-5 steps with a railing: A Little Raw Score: 19 Standardized (T-scale) Score: 42.48 Basic Mobility CMS 0-100%: 36.99 CMS G Code Modifier for Basic Mobility: CJ GOALS: Goals Goal Formulation: With Patient Time For Goal Achievement: 7 days Pt Will Go Supine To/From Sit: w/ Stand By Assist Pt Will Transfer Sit to Stand: w/ Stand By Assist Pt Will Ambulate: Greater than 200 Feet, w/ No Device, w/ Stand By Assist Pt Will Go Up / Down Stairs: 3-5 Stairs, w/ Minimal Assist PLAN: Plan Treatment Interventions: Mobility Training;Strengthening;Balance Activities Plan Frequency: 3-5 Days per Week PT Plan for Next Visit: test balance/ ensure gait at [facility]. RECOMMENDATIONS: PT Discharge Recommendations PT Discharge Recommendations: Home with Assistance Equipment Recommendations: None Therapist: Kyung Gallegos, PT Date: 07/23/2018 * Yazmin Ryan APRN-MIDDLEWARE SYSTEMS ARCHITECT - 07/23/2018 10:19 AM CDT Formatting of this note may be different from the original. ZOILA/HNS PROGRESS NOTE Today's Date: 07/23/2018 Admission Date: 07/17/2018 LOS: 6 days Subjective No acute events overnight. Pain well-controlled. Objective Vital Signs: Last Filed Vital Signs: 24 Hour Range BP: 144/86 (07/23 915) Temp: 36.6 C (97.8 F) (07/23 915) Pulse: 98 (07/23 915) Respirations: 18 PER MINUTE (07/23 915) SpO2: 96 % (07/23 915) O2 Delivery: Trach Shield (07/23 915) BP: (100-144)/(57-86) Temp: [36.1 C (97 F)-36.6 C (97.8 F)] Pulse: [69-98] Respirations: [16 PER MINUTE-18 PER MINUTE] SpO2: [95 %-99 %] O2 Delivery: Trach Shield Intensity Pain Scale (Self Report): 2 (07/23/18 0254) Vitals: 07/17/18 0613 07/17/18 0243 Weight: 49.9 kg (110 lb) 51.9 kg (114 lb 6.7 oz) Intake/Output Summary: (Last 24 hours) Intake/Output Summary (Last 24 hours) at 07/23/18 1019 Last data filed at 10/01/18 0915 Gross per 24 hour Intake 1550 ml Output 42.2 ml Net 1507.8 ml Stool Occurrence: 1 Physical Exam Awake, alert, follows commands 6.0 Shiley trach sutured in place, cuff down, on trach shield Neck flat, incision c/d/i with sutures, no fluctuance Nares patent, NGT in place, sutured in place -- removed Chest incision c/d/i with jacqueline no hematoma left axilla Flap soft, ecchymotic anteriorly improved color posteriorly, intra-oral sutures intact left Upper extremity dressing c/d/i, capillary refill <2sec Lower extremity STSG donor site -- xeroform trimmed LENI drains holding bulb suction, sutured in place, SS drainage Distal sensation, movement intact Respirations unlabored SCD's in place Lab Review Comprehensive Metabolic Profile Lab Results Component Value Date/Time NA 134 (L) 07/22/2018 05:19 AM K 3.6 07/22/2018 05:19 AM CL 99 07/22/2018 05:19 AM CO2 27 07/22/2018 05:19 AM GAP 8 07/22/2018 05:19 AM BUN 12 07/22/2018 05:19 AM CR 0.64 07/22/2018 05:19 AM GLU 107 (H) 07/22/2018 05:19 AM Lab Results Component Value Date/Time CA 8.6 07/22/2018 05:19 AM PO4 3.5 07/22/2018 05:19 AM GFR >60 07/22/2018 05:19 AM GFRAA >60 07/22/2018 05:19 AM CBC w/Diff Lab Results Component Value [...] 08:08 AM ABC 0.00 07/17/2018 08:08 AM Point of Care Testing (Last 24 hours) Radiology and other Diagnostics Review: Final Diagnosis: A. Squamous mucosa, "anterior dorsal [...] status and/or prior pathology. Pursuant to the Smoke Jumper Supervisor Program at the [facility] Pathology Department, selected slides from this case have been concurrently reviewed by the following pathologist: Dr. Downs, who agrees with the final diagnosis. Problem List: Active Hospital Problems Diagnosis Anemia associated with acute blood loss Dysphagia Acid reflux A-fib (HCC) HTN (hypertension) Squamous cell carcinoma Assessment/Plan: Yeimy Lima is a 73 y.o. female S/p Left hemiglossectomy, Bilateral modified radical neck dissection, Tracheostomy Left fasciocutaneous radial forearm free flap. Left pectoralis major myocutaneous flap., Split-thickness skin graft from left thigh 07/17. Neck exploration 07/18. Gtube placement 07/20. ENT: Maintain LENI drains, flap checks stable, incisional care, Trach care. Will remove JPs when at goal. sutures and jacqueline out in am. Plan to remove last drains in am NEURO: Awake alert Pain control adequate, following commands. OT/PT for mobilization. PULM: Stable on RA per trach shield, cuff down will change to 4.0 cuffless trach this am 07/23. and will begin trach teaching at that time. CV: VSS- Anemia improving Continue to monitor daily cbc. Warfarin restarted . Daily INR- 1.1 ID: Afebrile, 6.2 no leukocytosis, completed ppx FEN/GI: Gtube in place tolerating Dietary following. SLIV. On bowel regimen. LBM- 07/22. : UOP adequate Voiding spontaneously PPX: SQH , SCD's, completed ppx abx DISP:Continue visual flap checks. Continue inpatient stay. Ongoing discussion with CM plan on discharging in am 07/24 Yazmin Ryan OXIDE FURNACE TENDER Pager [phone] * Cheri Peoples, OT - 07/23/2018 10:11 AM CDT Formatting of this note may be different from the original. OCCUPATIONAL THERAPY ASSESSMENT NOTE Patient Name: Yeimy Lima Room/Bed: [place] [address] Admitting Diagnosis: Oral cancer (HCC) [C06.9] Past Medical History: Diagnosis Date Acid reflux controlled with omeprazole Afib (HCC) Arthritis Hyperlipidemia Hypertension Oral cancer (HCC) Mobility Progressive Mobility Level: Walk laps Distance Walked (feet): 450 ft Level of Assistance: Assist X1 Assistive Device: Hand Held Time Tolerated: 11-30 minutes Activity Limited By: Fatigue Subjective Pertinent Dx per Physician: 73 y.o. female POD#1 s/p left madelaine-glolssectomy, MRND 07/17; failed left forearm flap, returned to OR for left pectoral flap 07/18 L LE Precautions: (STSG left thigh) UE Precautions: LUE WBAT:Weight Bearing As Tolerated;Splint Pain / Complaints: Patient agrees to participate in therapy;Patient has no c/o pain Comments: Patient supine in bed upon arrival of OT. Patient left sitting in chair, alarm on, call light near, and all needs in reach Objective Psychosocial Status: Willing and Cooperative to Participate Persons Present: Spouse Home Living Type of Home: House Home Layout: One Level Bathroom Shower / Tub: Walk-in Shower Bathroom Toilet: Standard Home Equipment: Walker;Cane Prior Function Level Of [place]: Independent with ADLs and functional transfers; Independent with homemaking w/ ambulation Lives With: Spouse Receives Help From: None Needed Homemaking Tasks: Meal Prep;Laundry;Driving Vocational: Retired Other Function Comments: Patient reports she is independent with basic ADLs and IADLs. Spouse is available to provide 24/7 supervision and grandson is RN and assisting for a couple days upon discharge Vision Comment: no acute visual changes ADL's Where Assessed: Standing at Sink;In Bathroom Grooming Assist: Stand By Assist Grooming Deficits: Supervision/Safety;Wash/Dry Hands;Wash/Dry Face LE Dressing Assist: Minimal Assist LE Dressing Deficits: Don/Doff R Sock;Don/Doff L Sock Toileting Assist: Stand By Assist Toileting Deficits: Supervision/Safety Functional Transfer Assist: Minimal Assist Functional Transfer Deficits: Steadying;Verbal Cueing;Increased Time to Complete ;Toilet Transfer Comment: Supine>sit with stand by assist. Patient ambulated around unit with minimal hand held assist. Performed ADLs as documented above. Activity Tolerance Endurance: 3/5 Tolerates 25-30 Minutes Exercise w/Multiple Rests Sitting Balance: 5/5 Moves/Returns Trunkal Midpoint in All Planes > 2 Inches Cognition Overall Cognitive Status: WFL to Adequately Complete Self Care Tasks Safely Expression: (uses tablet to write) Memory: WFL Adequate to Recall Day to Day Activities Orientation: Alert & Oriented x4 Attention: Awake/Alert UE AROM Overall BUE AROM WNL: Yes Comment: LUE in splint UE Strength / Tone Overall Strength / Tone: WFL Able to Perform ADL Tasks Education Persons Educated: Patient/Family Barriers To Learning: None Noted Interventions: Repetition of Instructions Teaching Methods: Verbal Instruction Patient Response: Verbalized Understanding Topics: Role of OT, Goals for Therapy Goal Formulation: With Patient Assessment Assessment: Decreased ADL Status Prognosis: Good;w/ Family Goal Formulation: Pt/family AM-PAC 6 Clicks Daily Activity Inpatient Putting on and taking off regular lower body clothes?: A Little Bathing (Including washing, rinsing, drying): A Little Toileting, which includes using toilet, bedpan, or urinal: A Little Putting on and taking off regular upper body clothing: None Taking care of personal grooming such as brushing teeth: None Eating meals?: None Daily Activity Raw Score: 21 Standardized (t-scale) score: 44.27 CMS 0-100% Score: 32.79 CMS G Code Modifier: CJ Plan OT Frequency: 2-3x/week OT Plan for Next Visit: LE dressing, increase functional mobility ADL Goals Patient Will Perform LE Dressing: w/ Stand By Assist Patient Will Perform Toileting: w/ Stand By Assist Functional Transfer Goals Pt Will Perform All Functional Transfers: w/ Stand By Assist OT Discharge Recommendations OT Discharge Recommendations: Home with family assist Equipment Recommendations: Patient owns necessary equipment G-Codes: Self-care [id number] Current Status: 20-39% Impairment [id number] Goal Status:1-19% Impairment Based on above evaluation and clinical judgment. Therapist: DUNIA Norton/[place] [id number] Date: 07/23/2018 * Maura Barnes - 07/23/2018 8:31 AM CDT CLINICAL NUTRITION Clinical Nutrition Follow-Up Summary NAME:Yeimy Lima :1945 AGE: 73 y.o. ADMISSION DATE: 07/17/2018 DAYS ADMITTED: LOS: 6 days Nutrition Assessment of Patient: Malnutrition Assessment: Does not meet criteria Current Oral Intake: NPO Estimated Calorie Needs: 2332-0634 (30-35 kcal/kg admit wt) Estimated Protein Needs: 65-75 (1.3-1.5g/kg admit wt) Oral Diet Order: NPO 3 Day EN Delivery (calories) Daily Average: 475 kilocalories (32% of kcal goal) 3 Day EN Delivery (protein) Daily Average: 22 grams (33% of protein goal) Current EN Order: 1 carton (250 mL) Isosource 1.5 QID + 1/2 carton (125 mL) Isosource 1.5 Qday. 30 mL free H20 before and after each bolus and 150 mL free H20 Q6hr. At goal provides 1688 kcal, 77 gm protein, and 1755 mL free H20. 73 yo F with PMH of oral CA, afib, GERD, HTN and HLD with left hemiglolssectomy , radical neck dissection and trach 07/17 with flap faillure; back to OR 07/18 for neck exploration, debridement and reconstruction. Pt received EN via NGT until PEG placed on 07/20. See RD note from 07/18 for subjective information/ nutritional Hx. Pt received 2 cartons of Isosource 1.5 via PEG tube yesterday. Pt reports feeling "full" and experiencing indigestion with bolus feeds. Spouse reports that her BM was a couple of days ago (chart shows last BM 07/22). Miralax ordered today but not given d/t documented BM yesterday. Stage II pressure injury remains on buttocks. Pt receiving vitamin C and zinc, receiving 100% of DRIs via EN product if goal volume delivered. Recommendation: Continue EN as ordered: Isosource 1.5 (or equivalent if needed at d/c), 1 carton (250 ml) x 4 with 1/2 carton (125 ml) x 1 for total of 4.5 cartons per day in 5 feeds. 30 ml water flush before and after each feeding and additional 150 ml water bolus q6hr between feeds. At goal provides 1688 kcal, 77 g protien and 1755 ml free water at goal. Consider slow administration of bolus feed or running via feeding pump x ~20- 30 minutes if pt continues to refuse bolus feeds d/t indigestion and fullness feeling. Consider start of prokinetic if pt continues to c/o feeling of fullness with bolus feeds, unless contraindicated. Intervention / Plan: Continue to monitor tolerance/adequacy of EN regimen and adjust recs PRN. Monitor weight trends, labs, meds, GI health. Nutrition Diagnosis: Altered GI function Etiology: respiratory/swallowing deficits s/p oral surgery for CA Signs & Symptoms: NPO with plans for EN feeds via NGT Increased nutrient needs, specify: (kcal/protein) Etiology: demands for wound healing Signs & Symptoms: stage II pressure injury to buttock Goals: EN tolerated and meeting >75% of nutritional needs Time Frame: Within 72 Hours Status: Not met;Ongoing Leann Barnes RD, LD Pager: [phone] * Nichole Morales - 07/22/2018 10:33 AM CDT Offered pt. A bath she didn't want to bathe this morning had a bath yesterday * Christian House MD - 07/22/2018 7:25 AM CDT Formatting of this note may be different from the original. ZOILA/HNS PROGRESS NOTE Today's Date: 07/22/2018 Admission Date: 07/17/2018 LOS: 5 days Subjective No acute events overnight. Pain well-controlled. Voiding. BM 2 days ago. Doesn' t feel constipated. Resting in bed, leg with xeroform open to air. States that she is feeling better today. Objective Vital Signs: Last Filed Vital Signs: 24 Hour Range BP: 175/66 (07/22 515) Temp: 36.3 C (97.4 F) (07/22 515) Pulse: 72 (07/22 515) Respirations: 12 PER MINUTE (07/22 515) SpO2: 99 % (07/22 515) O2 Delivery: Trach Shield (07/22 515) BP: (129-175)/(58-88) Temp: [36.3 C (97.4 F)-36.6 C (97.9 F)] Pulse: [69-108] Respirations: [12 PER MINUTE-18 PER MINUTE] SpO2: [92 %-99 %] O2 Delivery: Trach Shield Intensity Pain Scale (Self Report): Asleep (07/22/18 0014) Vitals: 07/17/18 0613 07/17/18 2253 Weight: 49.9 kg (110 lb) 51.9 kg (114 lb 6.7 oz) Intake/Output Summary: (Last 24 hours) Intake/Output Summary (Last 24 hours) at 07/22/18 0725 Last data filed at 07/22/18 0540 Gross per 24 hour Intake 4496.67 ml Output 57 ml Net 4439.67 ml Stool Occurrence: 1 Physical Exam Awake, alert, follows commands 6.0 Shiley trach sutured in place, cuff down, on trach shield Neck flat, incision c/d/i with sutures, no fluctuance Nares patent, NGT in place, sutured in place -- removed Chest incision c/d/i with jacqueline no hematoma left axilla Flap soft, ecchymotic anteriorly improved color posteriorly, intra-oral sutures intact left Upper extremity dressing c/d/i, capillary refill <2sec Lower extremity STSG donor site -- xeroform trimmed LENI drains holding bulb suction, sutured in place, SS drainage Distal sensation, movement intact Respirations unlabored SCD's in place Lab Review Comprehensive Metabolic Profile Lab Results Component Value Date/Time NA 134 (L) 07/22/2018 05:19 AM K 3.6 07/22/2018 05:19 AM CL 99 07/22/2018 05:19 AM CO2 27 07/22/2018 05:19 AM GAP 8 07/22/2018 05:19 AM BUN 12 07/22/2018 05:19 AM CR 0.64 07/22/2018 05:19 AM GLU 107 (H) 07/22/2018 05:19 AM Lab Results Component Value Date/Time CA 8.6 07/22/2018 05:19 AM PO4 3.5 07/22/2018 05:19 AM GFR >60 07/22/2018 05:19 AM GFRAA >60 07/22/2018 05:19 AM CBC w/Diff Lab Results Component Value [...] 08:08 AM ABC 0.00 07/17/2018 08:08 AM Point of Care Testing (Last 24 hours) Glucose: (!) 107 (07/22/18 8719) Radiology and other Diagnostics Review: Surgical Pathology in progress Problem List: Patient Active Problem List Diagnosis Date Noted Anemia associated with acute blood loss 07/20/2018 Dysphagia 07/20/2018 Acid reflux 07/19/2018 A-fib (HCC) 07/19/2018 HTN (hypertension) 07/19/2018 Squamous cell carcinoma 07/17/2018 Tongue cancer (HCC) 07/02/2018 Assessment/Plan: Yeimy Lima is a 73 y.o. female S/p Left hemiglossectomy, Bilateral modified radical neck dissection, Tracheostomy Left fasciocutaneous radial forearm free flap. Left pectoralis major myocutaneous flap., Split-thickness skin graft from left thigh 07/17. Neck exploration 07/18. ENT: Maintain LENI drains, flap checks stable, incisional care, Trach care. OT/PT for mobilization. Will remove JPs as indicated NEURO: Pain control adequate, following commands. PULM: Stable on trach shield, cuff taken down , will plan for trach change on POD#5 to smaller 4.0 cuffless trach and will begin trach teaching at that time. CV: Anemia S/p 1 unit prbc's H/H 8.7 / 25.7 Continue to monitor daily cbc. Warfarin restarted 07/21 ID: Afebrile, no leukocytosis, on ABX PPX (IV Unasyn) FEN/GI: Gtube placed yesterday, using for meds and feeds. Has been tolerating tube feeds. Dietary following. SLIV. On bowel regimen. LBM- 07/20. : UOP adequate Voiding spontaneously PPX: SQH restarted, SCD's, IV Unasyn DISP:Continue visual flap checks. Continue inpatient stay. Associated attestation - Abdi Alexandre MD - 07/22/2018 10:18 PM CDT Formatting of this note may be different from the original. ATTESTATION Continues to do well. No complaints today. Vitals stable, Hgb/Hct 9.3/27 improved from yesterday. Intraoral flap unchanged, anterior portion with stable ecchymosis, posterior skin paddle healthy. Nursing doing good oral care. Neck flat with exception of pec, supraincisional edema unchanged, chest incision c/d/i with jacqueline. Drains clearing up, and removing remaining neck and 1 chest drain. Tapering off lab draws. Subtherapeutic INR, continue to monitor. Trach change tomorrow. Staff name: Abdi Alexandre MD Date: 07/22/2018 * Eddie Daniels MD - 07/21/2018 9:15 AM CDT Formatting of this note may be different from the original. ZOILA/HNS PROGRESS NOTE Today's Date: 07/21/2018 Admission Date: 07/17/2018 LOS: 4 days Subjective No acute events overnight. Pain controlled. Voiding spontaneously. Feeling better. Objective Vital Signs: Last Filed Vital Signs: 24 Hour Range BP: 155/80 (07/21 544) Temp: 37.2 C (98.9 F) (07/21 544) Pulse: 98 (07/21 544) Respirations: 17 PER MINUTE (07/21 544) SpO2: 94 % (07/21 544) O2 Delivery: Trach Shield (07/21 544) SpO2 Pulse: 74 (07/20 1445) BP: (114-175)/(55-95) Temp: [36.4 C (97.5 F)-37.2 C (99 F)] Pulse: [71-106] Respirations: [10 PER MINUTE-21 PER MINUTE] SpO2: [89 %-99 %] O2 Delivery: Trach Shield Intensity Pain Scale (Self Report): 5 (07/21/18 0419) Vitals: 07/17/18 0613 07/17/18 2253 Weight: 49.9 kg (110 lb) 51.9 kg (114 lb 6.7 oz) Intake/Output Summary: (Last 24 hours) Intake/Output Summary (Last 24 hours) at 07/21/18 0915 Last data filed at 07/21/18 0637 Gross per 24 hour Intake 350 ml Output 3097.5 ml Net -2747.5 ml Stool Occurrence: 1 Physical Exam Awake, alert, follows commands 6.0 Shiley trach sutured in place, cuff down, on trach shield Neck flat, incision c/d/i with sutures, no fluctuance Nares patent, NGT in place, sutured in place -- removed Chest incision c/d/i with jacqueline no hematoma left axilla Flap soft, ecchymotic anteriorly improved color posteriorly, intra-oral sutures intact left Upper extremity dressing c/d/i, capillary refill <2sec Lower extremity STSG donor site -- Tegaderm removed LENI drains holding bulb suction, sutured in place, SS drainage Distal sensation, movement intact Respirations unlabored SCD's in place Lab Review Comprehensive Metabolic Profile Lab Results Component Value Date/Time NA 135 (L) 07/21/2018 05:32 AM K 3.7 07/21/2018 05:32 AM CL 104 07/21/2018 05:32 AM CO2 26 07/21/2018 05:32 AM GAP 5 07/21/2018 05:32 AM BUN 14 07/21/2018 05:32 AM CR 0.66 07/21/2018 05:32 AM GLU 115 (H) 07/21/2018 05:32 AM Lab Results Component Value Date/Time CA 8.4 (L) 07/21/2018 05:32 AM PO4 3.0 07/21/2018 05:32 AM GFR >60 07/21/2018 05:32 AM GFRAA >60 07/21/2018 05:32 AM CBC w/Diff Lab Results Component Value Date/Time WBC 7.3 07/21/2018 05:32 AM RBC 2.74 (L) 07/21/2018 05:32 AM HGB 8.8 (L) 07/21/2018 05:32 AM HCT 25.4 (L) 07/21/2018 05:32 AM MCV 92.9 07/21/2018 05:32 AM MCH 32.0 07/21/2018 05:32 AM MCHC 34.4 07/21/2018 05:32 AM RDW 17.0 (H) 07/21/2018 05:32 AM PLTCT 187 07/21/2018 05:32 AM MPV 7.2 07/21/2018 05:32 AM Lab Results Component Value Date/Time NEUT 69 07/17/2018 08:08 AM ANC 3.80 07/17/2018 08:08 AM LYMA 20 (L) 07/17/2018 08:08 AM ALC 1.10 07/17/2018 08:08 AM JESICA 7 07/17/2018 08:08 AM AMC 0.40 07/17/2018 08:08 AM EOSA 3 07/17/2018 08:08 AM AEC 0.20 07/17/2018 08:08 AM BASA 1 07/17/2018 08:08 AM ABC 0.00 07/17/2018 08:08 AM Point of Care Testing (Last 24 hours) Glucose: (!) 115 (07/21/18 0532) Radiology and other Diagnostics Review: Surgical Pathology in progress Problem List: Patient Active Problem List Diagnosis Date Noted Anemia associated with acute blood loss 07/20/2018 Dysphagia 07/20/2018 Acid reflux 07/19/2018 A-fib (HCC) 07/19/2018 HTN (hypertension) 07/19/2018 Squamous cell carcinoma 07/17/2018 Tongue cancer (HCC) 07/02/2018 Assessment/Plan: Yeimy Lima is a 73 y.o. female S/p Left hemiglossectomy, Bilateral modified radical neck dissection, Tracheostomy Left fasciocutaneous radial forearm free flap. Left pectoralis major myocutaneous flap., Split-thickness skin graft from left thigh 07/17. Neck exploration 07/18. ENT: Maintain LENI drains (removed left neck today), flap checks stable, incisional care, Trach care. OT/PT for mobilization NEURO: Pain control adequate, following commands. PULM: Stable on trach shield, cuff taken down , will plan for trach change on POD#5 to cuffless trach and will begin trach teaching at that time. CV: Anemia S/p 1 unit prbc's H/H 8.7 / .7 Continue to monitor daily cbc. Will start warfarin today and monitor daily INR. ID: Afebrile, no leukocytosis, on ABX PPX (IV Unasyn) FEN/GI: Gtube placed yesterday, using for meds, will start feeds today at 2 pm. Has been tolerating bolus TF prior to placement. Dietary following. SLIV. IV fluids while NPO. On bowel regimen. LBM- 07/19. : UOP adequate Voiding spontaneously PPX: SQH will restart today at 2pm, SCD's, IV Unasyn DISP:Continue visual flap checks. Continue inpatient stay. Associated attestation - Abdi Alexandre MD - 07/22/2018 9:22 AM CDT Formatting of this note may be different from the original. ATTESTATION Seen on afternoon rounds 07/22/18. Doing well, no complaints. Getting up to chair and ambulating a little. Intraoral flap looks stable, mostly anterior ecchymosis. Left neck with supraincisional pitting edema (net positive I/O for admission), not firm, do not suspect hematoma. Neck and chest incisions intact. Left axilla with evolving bruise no hematoma. Drains clearing up nicely. Good cap refill in left fingers, sensation intact. Continue inpatient admission for drain management, trach change POD#5, take down cast POD#7. Staff name: Abdi Alexandre MD Date: 07/22/2018 * Iglesia Gray, RT - 07/21/2018 12:47 AM CDT RT Adult Assessment Note NAME:Yeimy Lima :1945 AGE: 73 y.o. ADMISSION DATE: 07/17/2018 DAYS ADMITTED: LOS: 4 days RT Treatment Plan: Protocol Plan: Medications Albuterol/Ipratropium: Neb PRN Protocol Plan: Procedures Tracheostomy Suction: PRN Oxygen/Humidity: Warm: continuous Monitoring: Discontinued Additional Comments: Impressions of the patient: Patient in no distress. Intervention(s)/outcome(s): Albuterol/Atrovent Neb PRN for Smoke History. Continue Trach Suction PRN Patient education that was completed: None Recommendations to the care team: None Vital Signs: Pulse: RR: Respirations: 16 PER MINUTE SpO2: SpO2: 97 % O2 Device: Liter Flow: O2%: O2 Percent: 21 % Breath Sounds: All Breath Sounds: Clear (implies normal) Respiratory Effort: Respiratory Effort: Non-Labored * Madeline Conway RN - 07/20/2018 2:05 PM CDT Gastrostomy Tube (g-tube) Placement 1. Vital signs q 15 minutes x 4, q 30 minutes x 2, q 1 hour x 4 then may resume prior order. 2. Bedrest: inpatient [address] g-tube to gravity drainage bag for 12 hours post procedure. Do not flush during this time. 4. Flush g-tube with 50mls of water 12 hours post procedure. 5. Tube feeding may be started 24 hours after procedure if water is tolerated. 6. Flush g-tube with 50ml of water after each feeding. 7. If patient is NPO, flush g-tube with 30-60mL water twice daily to maintain patency. 8. Remove dressing 24-48 hours after g-tube placement. 9. Wash stoma with water and pat dry q day and PRN. 10. May resume showering after g-tube site dressing has been removed. * Madeline Conway, RN - 07/20/2018 1:55 PM CDT Sedation physician present in room. Recent vitals and patient condition reviewed between sedating physician and nurse. Reassessment completed. Determination made to proceed with planned sedation. * Claudia Hawkins, OT - 07/20/2018 1:09 PM CDT OCCUPATIONAL THERAPY NO TREATMENT NOTE The patient was not seen due to: Pt off unit for G-tube placement. OT to follow up for evaluation 07/21 Therapist: Claudia Hawkins OTR/L Date: 07/20/2018 * Kristin Lima RN - 07/20/2018 12:25 PM CDT Gastrostomy Tube (g-tube) Placement 1. Vital signs q 15 minutes x 4, q 30 minutes x 2, q 1 hour x 4 then may resume prior order. 2. Bedrest: inpatient 2 hours; outpatient 6 [address] IR[address] 3[address] Place g-tube to gravity drainage bag for 12 hours post procedure. Do not flush during this time. 4. Flush g-tube with 50mls of water 12 hours post procedure. 5. Tube feeding may be started 24 hours after procedure if water is tolerated. 6. Flush g-tube with 50ml of water after each feeding. 7. If patient is NPO, flush g-tube with 30-60mL water twice daily to maintain patency. 8. Remove dressing 24-48 hours after g-tube placement. 9. Wash stoma with water and pat dry q day and PRN. 10. May resume showering after g-tube site dressing has been removed. * Clau Sandoval, PT - 07/20/2018 12:08 PM CDT PHYSICAL THERAPY NOTE Patient was unavailable for physical therapy, off unit for a procedure. Physical therapy will continue to follow and provide intervention as indicated. Therapist: Clau Sandoval, PT Date: 07/20/2018 * Jennifer Martinez RN - 07/20/2018 11:41 AM CDT I have reviewed the notes, assessment, and/or procedures performed by SANTI Rojas and concur with her/his documentation unless otherwise noted. * Italia Lima RN - 07/20/2018 11:15 AM CDT Pt transferred to [facility] with two RNs via bed with family and belongings. Pt tolerated travel well. Handoff/safety check compete with SANTI Donald. * Yazmin Ryan APRN-[employer] ARCHITECT - 07/20/2018 8:26 AM CDT Formatting of this note may be different from the original. [facility] ICU Progress Note Today's Date: 07/20/2018 Admission Date: 07/17/2018 LOS: 3 days Subjective Awake alert denies breathing difficulties, N/V chest pain. NPO for Gtube placement Medications Scheduled Meds: [DEC Hold] acetaminophen (TYLENOL) oral solution 650 mg 650 mg Per NG tube Q4H ampicillin/sulbactam (UNASYN) 3 g in sodium chloride 0.9% (NS) 100 mL IVPB (MB+ ) 3 g Intravenous Q6H* [DEC Hold] antiseptic mucus solvent 120 mL solution 2 spray 2 spray Tracheal Tube Q2H while awake [DEC Hold] ascorbic acid (VITAMIN C) tablet 500 mg 500 mg Per NG tube QDAY [DEC Hold] aspirin EC tablet 81 mg 81 mg Oral QDAY [DEC Hold] atenolol (TENORMIN) tablet 50 mg 50 mg Per NG tube QDAY [DEC Hold] calcium carbonate/vitamin D-3 (OSCAL-500+D) 1250 mg/200 unit tablet 1 tablet 1 tablet Per NG tube QDAY [DEC Hold] docusate (COLACE) oral solution 100 mg 100 mg Per NG tube BID [DEC Hold] folic acid (FOLVITE) tablet 1 mg 1 mg Oral QDAY [DEC Hold] lidocaine (LIDODERM) 5 % topical patch 1 patch 1 patch Topical QDAY [DEC Hold] lisinopril (PRINIVIL; ZESTRIL) tablet 10 mg 10 mg Per NG tube QDAY [DEC Hold] loratadine (CLARITIN) tablet 10 mg 10 mg Per NG tube QAM8 [DEC Hold] pantoprazole(#) (PROTONIX) suspension 80 mg 80 mg Per NG tube QDAY(21 ) [DEC Hold] potassium phosphate (K-PHOS ORIGINAL) dispersable tablet 2 tablet 2 tablet Per NG tube BID [DEC Hold] simvastatin (ZOCOR) tablet 40 mg 40 mg Per NG tube QHS [DEC Hold] thiamine mononitrate tablet 100 mg 100 mg Oral QDAY [Dec] zinc sulfate capsule 220 mg 220 mg Per NG tube QDAY Continuous Infusions: sodium chloride 0.9 % infusion 100 mL/hr at 07/20/18 0000 PRN and Respiratory Meds:[Dec] bisacodyl QDAY PRN, [Dec] diphenoxylate /atropine QID PRN, [Dec] milk of magnesia (CONC) PRN, [Dec] morphine injection syringe Q2H PRN, [DEC Hold] ondansetron (ZOFRAN) IV Q6H PRN, [DEC Hold ] oxyCODONE Q4H PRN, [Dec] pancrelipase 20,000 Units/ sodium bicarbonate 650 mg(#) PRN (Meat Grader from Rx) Objective Vital Signs: Last Filed Vital Signs: 24 Hour Range BP: 134/65 (07/20 1445) Temp: 36.7 C (98.1 F) (07/20 1220) Pulse: 75 (07/20 1445) Respirations: 11 PER MINUTE (07/20 1445) SpO2: 99 % (07/20 1445) O2 Delivery: Trach Shield (07/20 144) SpO2 Pulse: 74 (07/20 1445) BP: (114-175)/(59-95) ABP: (136-184)/(52-99) Temp: [36.6 C (97.9 F)-37.1 C (98.8 F)] Pulse: [55-96] Respirations: [7 PER MINUTE-26 PER MINUTE] SpO2: [89 %-99 %] O2 Delivery: Trach Shield Intensity Pain Scale (Self Report): 6 (07/20/18 0400) Vitals: 07/17/18 0613 07/17/18 2253 Weight: 49.9 kg (110 lb) 51.9 kg (114 lb 6.7 oz) LENI drain output: LENI castillo noted and reviewed Intake/Output Summary: (Last 24 hours) Intake/Output Summary (Last 24 hours) at 07/20/18 1510 Last data filed at 07/20/18 1100 Gross per 24 hour Intake 1500 ml Output 1016 ml Net 484 ml Stool Occurrence: 1 Physical Exam Awake, alert, follows commands 6.0 Shiley trach sutured in place, cuff down, on trach shield Neck flat, incision c/d/i with sutures, no fluctuance Nares patent, NGT in place, sutured in place Chest incision c/d/i with jacqueline no hematoma left axilla Flap soft, ecchymotic anteriorly improved color posteriorly, intra-oral sutures intact left Upper extremity dressing c/d/i, capillary refill <2sec Lower extremity STSG donor site with dressing in place LENI drains holding bulb suction, sutured in place, SS drainage Distal sensation, movement intact Respirations unlabored SCD's in place Lab Review Comprehensive Metabolic Profile Lab Results Component Value Date/Time NA 140 07/20/2018 04:06 AM K 3.9 07/20/2018 04:06 AM CL 109 07/20/2018 04:06 AM CO2 25 07/20/2018 04:06 AM GAP 6 07/20/2018 04:06 AM BUN 21 07/20/2018 04:06 AM CR 0.78 07/20/2018 04:06 AM GLU 122 (H) 07/20/2018 04:06 AM Lab Results Component Value Date/Time CA 8.4 (L) 07/20/2018 04:06 AM PO4 1.7 (L) 07/20/2018 04:06 AM GFR >60 07/20/2018 04:06 AM GFRAA >60 07/20/2018 04:06 AM CBC w/Diff Lab Results Component Value Date/Time WBC 9.4 07/20/2018 04:06 AM RBC 2.76 (L) 07/20/2018 04:06 AM HGB 8.7 (L) 07/20/2018 04:06 AM HCT 25.7 (L) 07/20/2018 04:06 AM MCV 93.0 07/20/2018 04:06 AM MCH 31.6 07/20/2018 04:06 AM MCHC 34.0 07/20/2018 04:06 AM RDW 16.6 (H) 07/20/2018 04:06 AM PLTCT 151 07/20/2018 04:06 AM MPV 7.7 07/20/2018 04:06 AM Lab Results Component Value Date/Time NEUT 69 07/17/2018 08:08 AM ANC 3.80 07/17/2018 08:08 AM LYMA 20 (L) 07/17/2018 08:08 AM ALC 1.10 07/17/2018 08:08 AM JESICA 7 07/17/2018 08:08 AM AMC 0.40 07/17/2018 08:08 AM EOSA 3 07/17/2018 08:08 AM AEC 0.20 07/17/2018 08:08 AM BASA 1 07/17/2018 08:08 AM ABC 0.00 07/17/2018 08:08 AM Point of Care Testing (Last 24 hours) Glucose: (!) 122 (07/20/18 0406) Radiology and other Diagnostics Review: Surgical Pathology in progress Problem List: Patient Active Problem List Diagnosis Date Noted Anemia associated with acute blood loss 07/20/2018 Dysphagia 07/20/2018 Acid reflux 07/19/2018 A-fib (HCC) 07/19/2018 HTN (hypertension) 07/19/2018 Squamous cell carcinoma 07/17/2018 Tongue cancer (HCC) 07/02/2018 Assessment/Plan: Yeimy Lima is a 73 y.o. female S/p Left hemiglossectomy, Bilateral modified radical neck dissection, Tracheostomy Left fasciocutaneous radial forearm free flap. Left pectoralis major myocutaneous flap., Split-thickness skin graft from left thigh 07/17. Neck exploration 07/18. ENT: Maintain LENI drains, flap checks stable, incisional care, Tach care. OT/PT for mobilization NEURO: Pain control adequate, following commands. PULM: Stable on trach shield, cuff taken down , will plan for trach change on POD#5 to cuffless trach and will begin trach teaching at that time. CV: Anemia S/p 1 unit prbc's H/H 8.7 / 25.7 Continue to monitor daily cbc. ID: Afebrile, no leukocytosis, on ABX PPX (IV Unasyn) FEN/GI: Has been tolerating bolus TF. Dietary following. SLIV. NPO for IR Gtube today 07/20. IV fluids while NPO. On bowel regimen. LBM- 07/19. : UOP adequate Voiding spontaneously PPX: SQH last dose 2200, SCD's, IV Unasyn DISP:-Downgrade to tele status. continue visual flap checks. Yazmin Ryan APRN Pager [phone] * Dior Molina RN - 07/19/2018 1:57 PM CDT I have reviewed the notes, assessments, and/or procedures performed by Bob Lima RN and concur with her documentation unless otherwise noted. * Clau Sandoval, PT - 07/19/2018 12:45 PM CDT PHYSICAL THERAPY ASSESSMENT MOBILITY: Mobility Progressive Mobility Level: Active transfer to chair Level of Assistance: Assist X1 Assistive Device: Hand Held Time Tolerated: 11-30 minutes Activity Limited By: Pain SUBJECTIVE: Subjective Significant hospital events: 73 y.o. female POD#1 s/p left madelaine-glolssectomy, MRND 07/17; failed left forearm flap, returned to OR for left pectoral flap 07/18 Mental / Cognitive Status: Alert;Oriented;Cooperative;Tracheostomy Persons Present: Daughter (s) Pain: Patient complains of pain;Before activity;During activity;After activity Pain Location: Left;Arm Pain Description: Burning Pain Interventions: Patient agrees to participate in therapy;Treatment altered to patient's pain tolerance;Nursing staff notified of patient's pain level Precautions: ENT Surgery Precautions (arterial line; 5 LENI drains) UE Precautions: LUE WBAT:Weight Bearing As Tolerated;Splint Comments: right pectoral flap L LE Precautions: (STSG left thigh) Ambulation Assist: Independent Mobility in Community without Device Patient Owned Equipment: None Home Situation: Lives with Family Type of Home: House Entry Stairs: No Stairs In-Home Stairs: 1-2 Stairs Comments: Denies falls prior to admission. ROM: ROM ROM Position Assessed: Seated ROM Method: Active LE ROM: Bilateral;WFL STRENGTH: Strength Strength Position Assessed: Seated Overall Strength: Generalized Weakness POSTURE/NEURO: Posture / Neurological Head Control: Independent Posture: No Postural Deviations Overall Tone: Normal BED MOBILITY/TRANSFERS: Bed Mobility/Transfers Bed Mobility: Supine to Sit: Moderate Assist;Assist with Trunk;Head of Bed Elevated Transfer Type: Sit to Stand Transfer: Assistance Level: To/From;Bed;Minimal Assist Transfer: Assistive Device: Hand Hold Assist Transfers: Type Of Assistance: Verbal Cues;For Balance;For Strength Deficit;For Safety Considerations Other Transfer Type: Stand Pivot Other Transfer: Assistance Level: From;Bed;To;Bed Side Chair;Moderate Assist Other Transfer: Assistive Device: Hand Hold Assist Other Transfer: Type Of Assistance: Verbal Cues;For Balance;For Strength Deficit ;For Safety Considerations End Of Activity Status: Up in Chair;Nursing Notified;Instructed Patient to Request Assist with Mobility;Instructed Patient to Use Call Light (TABs alarm in seat) GAIT: Gait Comments: Not safe to ambulate due to impaired balance and LUE pain. ACTIVITY/EXERCISE: Activity / Exercise Sit Edge Of Bed: 5 minutes Sit Edge Of Bed Assist: Stand By Assist Stand At Bedside : 2 minutes Stand At Bedside Assist: Minimal Assist EDUCATION: Education Persons Educated: Patient/Family Patient Barriers To Learning: Impaired Communication (writes notes on paper) Interventions: Repetition of Instructions;Family Education Teaching Methods: Verbal Instruction Patient Response: More Instruction Required Topics: Plan/Goals of PT Interventions;Mobility Progression;Safety Awareness;Up with Assist Only;Importance of Increasing Activity;Recommend Continued Therapy ASSESSMENT/PROGRESS: Assessment/Progress Impaired Mobility Due To: Decreased Strength;Pain;Impaired Balance;Safety Concerns;Decreased Activity Tolerance Assessment/Progress: Should Improve w/ Continued PT AM-PAC 6 Clicks Basic Mobility Inpatient Turning from your back to your side while in a flat bed without using bed rails : A lot Moving from lying on your back to sitting on the side of a flatbed without using bedrails : A Lot Moving to and from a bed to a chair (including a wheelchair): A Lot Standing up from a chair using your arms (e.g. wheelchair, or bedside chair): A Lot To walk in hospital room: A Lot Climbing 3-5 steps with a railing: Total Raw Score: 11 Standardized (T-scale) Score: 30.25 Basic Mobility CMS 0-100%: 66.76 CMS G Code Modifier for Basic Mobility: CL GOALS: Goals Goal Formulation: With Patient Time For Goal Achievement: 7 days Pt Will Go Supine To/From Sit: w/ Stand By Assist Pt Will Transfer Sit to Stand: w/ Stand By Assist Pt Will Ambulate: Greater than 200 Feet, w/ No Device, w/ Stand By Assist Pt Will Go Up / Down Stairs: 3-5 Stairs, w/ Minimal Assist PLAN: Plan Treatment Interventions: Mobility Training;Strengthening;Balance Activities Plan Frequency: 5 Days per Week PT Plan for Next Visit: trial gait next visit RECOMMENDATIONS: PT Discharge Recommendations PT Discharge Recommendations: Home with Assistance Equipment Recommendations: None G-Codes: Mobility G8978 Current Status: 60-79% Impairment G8979 Goal Status: 20-39% Impairment Based on above evaluation and clinical judgment. Therapist: Clau Sandoval, PT Date: 07/19/2018 * Natty Elliott, RN - 07/19/2018 10:15 AM CDT Interventional Radiology Progress Note G tube placement. Tongue CA. Team requesting on 07/20. Has red de leon in place. Labs/meds ok. Natty Elliott, RN * Charles Ware, RT - 07/19/2018 8:04 AM CDT Trach cuff was deflated by physician according to patient. * Yazmin Ryan, OXIDE FURNACE TENDER-[employer] SYSTEM[employer] ARCHITECT - 07/19/2018 7:26 AM CDT Formatting of this note may be different from the original. [facility] ICU Progress Note Today's Date: 07/19/2018 Admission Date: 07/17/2018 LOS: 2 days Subjective Awake alert denies breathing difficulties, N/V chest pain. Medications Scheduled Meds: acetaminophen (TYLENOL) oral solution 650 mg 650 mg Per NG tube Q4H ampicillin/sulbactam (UNASYN) 3 g in sodium chloride 0.9% (NS) 100 mL IVPB (MB+ ) 3 g Intravenous Q6H* antiseptic mucus solvent 120 mL solution 2 spray 2 spray Tracheal Tube Q2H while awake ascorbic acid (VITAMIN C) tablet 500 mg 500 mg Per NG tube QDAY aspirin EC tablet 81 mg 81 mg Oral QDAY atenolol (TENORMIN) tablet 50 mg 50 mg Per NG tube QDAY calcium carbonate/vitamin D-3 (OSCAL-500+D) 1250 mg/200 unit tablet 1 tablet 1 tablet Per NG tube QDAY docusate (COLACE) oral solution 100 mg 100 mg Per NG tube BID [START ON 07/21/2018] folic acid (FOLVITE) tablet 1 mg 1 mg Oral QDAY heparin (porcine) PF syringe 5,000 Units 5,000 Units Subcutaneous Q8H lidocaine (LIDODERM) 5 % topical patch 1 patch 1 patch Topical QDAY lisinopril (PRINIVIL; ZESTRIL) tablet 10 mg 10 mg Per NG tube QDAY loratadine (CLARITIN) tablet 10 mg 10 mg Per NG tube QAM8 pantoprazole(#) (PROTONIX) suspension 80 mg 80 mg Per NG tube QDAY(21) simvastatin (ZOCOR) tablet 40 mg 40 mg Per NG tube QHS sodium chloride 0.9% (NS) 1,000 mL with multivitamin, adult 10 mL, folic acid 1 mg, thiamine (VITAMIN B-1) 100 mg IV infusion Intravenous QDAY [START ON 07/21/2018] thiamine mononitrate tablet 100 mg 100 mg Oral QDAY zinc sulfate capsule 220 mg 220 mg Per NG tube QDAY Continuous Infusions: PRN and Respiratory Meds:bisacodyl QDAY PRN, diphenoxylate/atropine QID PRN, milk of magnesia (CONC) PRN, morphine injection syringe Q2H PRN, ondansetron ( ZOFRAN) IV Q6H PRN, oxyCODONE Q4H PRN, pancrelipase 20,000 Units/ sodium bicarbonate 650 mg(#) PRN (Meat Grader from Rx) Objective Vital Signs: Last Filed Vital Signs: 24 Hour Range BP: 135/75 (07/18 2200) Temp: 35.9 C (96.7 F) (07/19 0400) Pulse: 68 (07/19 700) Respirations: 18 PER MINUTE (07/19 700) SpO2: 100 % (07/19 700) O2 Delivery: Trach Shield (07/19 700) SpO2 Pulse: 69 (07/19 700) BP: (104-150)/(46-98) ABP: (97-152)/(46-98) Temp: [35.9 C (96.6 F)-36.7 C (98.1 F)] Pulse: [63-105] Respirations: [9 PER MINUTE-27 PER MINUTE] SpO2: [92 %-100 %] O2 Delivery: Trach Shield Intensity Pain Scale (Self Report): 7 (07/19/18 0200) Vitals: 07/17/18 0613 07/17/18 2253 Weight: 49.9 kg (110 lb) 51.9 kg (114 lb 6.7 oz) LENI drain output: LENI castillo noted and reviewed Intake/Output Summary: (Last 24 hours) Intake/Output Summary (Last 24 hours) at 07/19/18 07 Last data filed at 07/19/18 0700 Gross per 24 hour Intake 3207 ml Output 1141 ml Net 2066 ml Physical Exam Awake, alert, follows commands 6.0 Shiley trach sutured in place, cuff down, on trach shield Neck flat, incision c/d/i with sutures, no fluctuance Nares patent, NGT in place, sutured in place Chest incision c/d/i with jacqueline no hematoma left axilla Flap soft, ecchymotic anteriorly improved color posteriorly, intra-oral sutures intact Upper extremity dressing c/d/i, capillary refill <2sec Lower extremity STSG donor site with dressing in place LENI drains holding bulb suction, sutured in place, SS drainage Distal sensation, movement intact Respirations unlabored SCD's in place Lab Review Comprehensive Metabolic Profile Lab Results Component Value Date/Time NA 134 (L) 07/19/2018 04:11 AM K 4.0 07/19/2018 04:11 AM CL 106 07/19/2018 04:11 AM CO2 24 07/19/2018 04:11 AM GAP 4 07/19/2018 04:11 AM BUN 17 07/19/2018 04:11 AM CR 0.93 07/19/2018 04:11 AM GLU 154 (H) 07/19/2018 04:11 AM Lab Results Component Value Date/Time CA 8.6 07/19/2018 04:11 AM PO4 2.1 07/19/2018 04:11 AM GFR 59 (L) 07/19/2018 04:11 AM GFRAA >60 07/19/2018 04:11 AM CBC w/Diff Lab Results Component Value Date/Time WBC 9.5 07/19/2018 04:11 AM RBC 2.30 (L) 07/19/2018 04:11 AM HGB 7.4 (L) 07/19/2018 04:11 AM HCT 21.5 (L) 07/19/2018 04:11 AM MCV 93.3 07/19/2018 04:11 AM MCH 32.2 07/19/2018 04:11 AM MCHC 34.5 07/19/2018 04:11 AM RDW 15.9 (H) 07/19/2018 04:11 AM PLTCT 143 (L) 07/19/2018 04:11 AM MPV 7.6 07/19/2018 04:11 AM Lab Results Component Value Date/Time NEUT 69 07/17/2018 08:08 AM ANC 3.80 07/17/2018 08:08 AM LYMA 20 (L) 07/17/2018 08:08 AM ALC 1.10 07/17/2018 08:08 AM JESICA 7 07/17/2018 08:08 AM AMC 0.40 07/17/2018 08:08 AM EOSA 3 07/17/2018 08:08 AM AEC 0.20 07/17/2018 08:08 AM BASA 1 07/17/2018 08:08 AM ABC 0.00 07/17/2018 08:08 AM Point of Care Testing (Last 24 hours) Glucose: (!) 154 (07/19/18 0411) Radiology and other Diagnostics Review: Surgical Pathology in progress Problem List: Patient Active Problem List Diagnosis Date Noted Acid reflux 07/19/2018 A-fib (HCC) 07/19/2018 HTN (hypertension) 07/19/2018 Squamous cell carcinoma 07/17/2018 Tongue cancer (HCC) 07/02/2018 Assessment/Plan: Yeimy Lima is a 73 y.o. female S/p Left hemiglossectomy, Bilateral modified radical neck dissection, Tracheostomy Left fasciocutaneous radial forearm free flap. Left pectoralis major myocutaneous flap., Split-thickness skin graft from left thigh 07/17. Neck exploration 07/18. ENT: Maintain LENI drains, flap checks stable, incisional care, Tach care. OT/PT for mobilization NEURO: Pain control adequate, following commands. PULM: Stable on trach shield, cuff taken down , will plan for trach change on POD#5 to cuffless trach and will begin trach teaching at that time CV: HDS, VSS ID: Afebrile, no leukocytosis, on ABX PPX (IV Unasyn) FEN/GI: , Tolerating trickle TF will advance to bolus TF. SLIV. NPO after midnight for IR Gtube IR. IV fluids while NPO. : UOP adequate howard out when OOB PPX: SQH last dose 2200, SCD's, IV Unasyn DISP:-continue visual flap checks. Consider downgrading after Gtube placement in am. Yazmin Ryan APRN Pager [phone] Associated attestation - Abdi Alexandre MD - 07/19/2018 7:10 PM CDT Formatting of this note may be different from the original. ATTESTATION Seen on afternoon rounds. Overall doing well, denies any pain other than some pulling under the arm splint when she moves left arm. Breathing comfortably, hasn't ambulated yet, but is up to chair. Intraoral pec flap with ecchymosis anteriorly, peripherally and posteriorly has good color, it is soft throughout on palpation. Neck and chest incisions c/d/i. Drains starting to clear up, but output too high for removal. Fingers warm, sensation intact. Transfusing for Hgb 7.4/Hct 21.5. Requested IR PEG for tomorrow, will resume anticoagulation after procedure. Staff name: Abdi Alexandre MD Date: 07/19/2018 * Italia Lima, RN - 07/18/2018 5:37 PM CDT 0840 Pt transferred to OR with two RNs. Handoff complete with PAST DUE ACCOUNTS CLERK/Anesthesia. Consent in chart. 1100 Pt returned to room with ENT/Anesthesia. Safety check complete. Pt VS/exam stable. Will continue to monitor per post op orders. 1300 Notified Yazmin MEEKS pt flap appearing to be more bruised. Yazmin MEEKS and Dr. Alexandre to bedside to assess. Flap stable at this time. Will continue to monitor. * Valeriy Guaman - 07/18/2018 5:15 PM CDT Reason for Visit: Referral from the [employer] candy catcher, Rosario/Roman Catholic: Rastafarian, Source of Purpose/Meaning: Post surgical recovery, pt is well supported by the family, pt seemed to be in good spirt, support provided, offered prayer, pt received anointing, Worries/Concerns/Struggles: Method(s) of Coping: Support System: Interventions/Plan: * Clau Sandoval, PT - 07/18/2018 11:22 AM CDT PHYSICAL THERAPY NOTE Patient was unavailable for physical therapy, off unit for OR. Physical therapy will continue to follow and provide intervention as indicated. Therapist: Clau Sandoval, PT Date: 07/18/2018 * Christian House MD - 07/18/2018 7:33 AM CDT Formatting of this note may be different from the original. ZOILA/HNS PROGRESS NOTE Today's Date: 07/18/2018 Admission Date: 07/17/2018 LOS: 1 day Subjective No acute events overnight. Free flap failure with left pec salvage. Hypotensive o/n, responsive to fluids. Dusky appearing flap. Consented at bedside for debridement. Objective Vital Signs: Last Filed Vital Signs: 24 Hour Range BP: 88/51 (07/18 0130) Temp: 36.9 C (98.5 F) (07/18 0400) Pulse: 73 (07/18 07) Respirations: 17 PER MINUTE (07/18 700) SpO2: 98 % (07/18 700) O2 Delivery: Trach Shield (07/18 0000) SpO2 Pulse: 74 (07/18 700) Height: 144.8 cm (57.01") (07/17 2253) BP: (88-140)/(51-74) ABP: (86-149)/(41-64) Temp: [36 C (96.8 F)-36.9 C (98.5 F)] Pulse: [73-88] Respirations: [6 PER MINUTE-21 PER MINUTE] SpO2: [94 %-100 %] O2 Delivery: Trach Shield Intensity Pain Scale (Self Report): 6 (07/18/18 06) Vitals: 07/17/18 0613 07/17/182252 Weight: 49.9 kg (110 lb) 51.9 kg (114 lb 6.7 oz) Drain Output: 105 100 63 260 5 Intake/Output Summary: (Last 24 hours) Date 07/17/18700 - 07/18/1869907/18/18700 - 07/19/18 07 Shift 9971-1975 3552-7823 24 Hour Total 0295-3281 6086-3138 24 Hour Total I N T A K E I.V. (mL/kg/hr) 3000 (5) 2150 (3.5) 5150 (4.1) Other 100 100 Shift Total (mL/kg) 3000 (60.1) 2250 (43.4) 5250 (101.2) O U T P U T Urine (mL/kg/hr) 1400 (2.3) 440 (0.7) 1840 (1.5) Urine 0192 127 1339 Urine Output (ml) (Indwelling Urinary Catheter 07/17/18 0825 16 FR) 230 230 Drains 533 533 Drain Output (ml) (Rahul Sanches Drain 07/17/18 1315 Left;Lower Arm #1) 5 5 Drain Output (ml) (Rahul Sanches Drain 07/17/182026 Left Chest #2) 105 105 Drain Output (ml) (Rahul Sanches Drain 07/17/182027 Left Chest #3) 100 100 Drain Output (ml) (Rahul Sanches Drain 07/17/182037 Right Neck #4) 63 63 Drain Output (ml) (Rahul Sanches Drain 07/17/182138 Left Neck #5) 260 260 Other 450 200 650 Estimated Blood Loss 450 200 650 Shift Total (mL/kg) 1850 (37.1) 1173 (22.6) 3023 (58.2) NET 1150 1077 2227 Weight (kg) 49.9 51.9 51.9 51.9 51.9 51.9 Physical Exam AAOx3, NAD NC/AT PERRL, EOMI CNVII intact, symmetric Hearing grossly intact Good shoulder shrug Flap with dusky appearance No stridor or stertor, voice strong Neck flat, bulge from pec flap. iIcision c/d/i with sutures, no fluctuance LENI drain(s) sutured in place, SS drainage, holding bulb suction Respirations regular and unlabored Lab Review Comprehensive Metabolic Profile Lab Results Component Value Date/Time NA 131 (L) 07/18/2018 04:00 AM K 3.9 07/18/2018 04:00 AM CL 101 07/18/2018 04:00 AM CO2 22 07/18/2018 04:00 AM GAP 8 07/18/2018 04:00 AM BUN 12 07/18/2018 04:00 AM CR 0.82 07/18/2018 04:00 AM GLU 175 (H) 07/18/2018 04:00 AM Lab Results Component Value Date/Time CA 7.7 (L) 07/18/2018 04:00 AM PO4 4.0 07/18/2018 04:00 AM GFR >60 07/18/2018 04:00 AM GFRAA >60 07/18/2018 04:00 AM CBC w/Diff Lab Results Component Value Date/Time WBC 8.7 07/18/2018 04:00 AM RBC 2.62 (L) 07/18/2018 04:00 AM HGB 8.1 (L) 07/18/2018 04:00 AM HCT 24.5 (L) 07/18/2018 04:00 AM MCV 93.6 07/18/2018 04:00 AM MCH 31.1 07/18/2018 04:00 AM MCHC 33.3 07/18/2018 04:00 AM RDW 15.5 (H) 07/18/2018 04:00 AM PLTCT 153 07/18/2018 04:00 AM MPV 7.6 07/18/2018 04:00 AM Lab Results Component Value Date/Time NEUT 69 07/17/2018 08:08 AM ANC 3.80 07/17/2018 08:08 AM LYMA 20 (L) 07/17/2018 08:08 AM ALC 1.10 07/17/2018 08:08 AM JESICA 7 07/17/2018 08:08 AM AMC 0.40 07/17/2018 08:08 AM EOSA 3 07/17/2018 08:08 AM AEC 0.20 07/17/2018 08:08 AM BASA 1 07/17/2018 08:08 AM ABC 0.00 07/17/2018 08:08 AM Point of Care Testing (Last 24 hours) Glucose: (!) 175 (07/18/18 0400) Radiology and other Diagnostics Review: Reviewed Problem List: Patient Active Problem List Diagnosis Date Noted Squamous cell carcinoma 07/17/2018 Tongue cancer (HCC) 07/02/2018 Assessment/Plan: Yeimy Lima is a 73 y.o. female POD#1 s/p left hemiglolssectomy, MRND, failed left forearm flap, left pec flap. - Pain control adequate, continue current regimen - Stable on RA, HDS - Tolerating PO, on bowel regimen - Afebrile, no leukocytosis - SCD's, SQH, PPI/pepcid Dispo: to OR for neck exploration, debridement, possible additional reconstruction to include another pec flap, other locoregional flap, free flap. Consented. No other interval changes in health. To OR later AM with Dr. Alexandre, pending his evaluation. Christian House MD Otolaryngology Resident, PGY-2 [phone] For routine questions during weekday business hours, please page Yazmin Hankins at [phone]. All other questions and on weekends and nights ([phone]) page ENT conversion worker at [phone]. Associated attestation - Abdi Alexandre MD - 07/19/2018 7:59 AM CDT Patient seen on rounds with resident team. Pec flap skin paddle dusky in appearance, high output in drains overnight. Suspect that reconstruction may be in jeopardy. Would like to return to OR for neck exploration/washout and determine viability of pec muscle and skin flap and revise reconstruction if necessary. * Chance Vicente, RT - 07/18/2018 12:50 AM CDT RT Adult Assessment Note NAME:Yeimy Lima :1945 AGE: 73 y.o. ADMISSION DATE: 07/17/2018 DAYS ADMITTED: LOS: 1 day RT Treatment Plan: Protocol Plan: Procedures Tracheostomy Suction: PRN Oxygen/Humidity: O2 to keep SpO2 > 92% Monitoring: Pulse oximetry BID & PRN Additional Comments: Impressions of the patient: Pt alert and responsive, no complications noted Intervention(s)/outcome(s): Suction PRN, O2 to keep SPO2 > 92% Patient education that was completed: None at this time Recommendations to the care team: ICU Monitoring Vital Signs: Pulse: Pulse: 78 RR: Respirations: 10 PER MINUTE SpO2: SpO2: 100 % O2 Device: Liter Flow: O2 Liter Flow: 10 lpm O2%: O2 Percent: 40 % Breath Sounds: All Breath Sounds: Clear (implies normal) Respiratory Effort: Respiratory Effort: Non-Labored * Cesia Grewal MD - 07/18/2018 12:29 AM CDT Paged to bedside at 23:54. Patient noted to be hypotensive to 81/43 with increased LENI drain output from left neck LENI #5. Patient not tachycardic, breathing comfortably on trach shield. 500mL bolus and stat CBC ordered. On arrival to unit around 12:15, patients pressures improved MAP's in 70's SBP 100-110's/40-50's. Left neck LENI with 25cc output measured (last emptied @ 11:45) , drain stripped no large volume of bleeding seen following into drain. Neck with postoperative bruising along neck incision. Left side with slightly more swelling compared to right, patient is s/p pectoralis flap on left for reconstruction of oral cavity defect. Left neck is soft on exam. Following examination vitals are stable at HR 80, BP 130/50 SpO2 98-100. Patient is breathing comfortably and neck remains soft. JP5 re-examined at 12: 55 with <10c output. Repeat hgb 8.3. Will continue to monitor closely overnight , next check at 2:00AM. Addendum (5253) Patient asleep on exam. Patient's vitals remain stable HR 70's BP 90-100's/40's , MAP 60-70. Left neck LENI with ~30cc output since 12:15. UOP 35 over past hour. Neck bruising and swelling stable from previous exam, no evidence of hematoma collection. Will check again at 6:00 AM Cesia Grewal MD Otolaryngology Resident, PGY-2 * Echo Gallegos RN - 07/17/2018 11:[address] Grewal with ENT of decrease in BP, 86/43. Other VS stable, no neuro changes- over 200 mL out in 15 minute period in LENI drain 5. Fluid bolus ordered. Dr. Grewal to bedside. * Echo Gallegos RN - 07/17/2018 10:53 PM CDT Patient arrived to room # 5103 via bed accompanied by anesthesia. Bedside safety checks completed. Initial patient assessment completed, refer to flowsheet for details. Admission skin assessment completed by: SANTI Dodge and SANTI Cuellar. Pressure Injury Present on Hospital Admission (within 24 hours): Yes 1. Occiput: No 2. Ear: No 3. Scapula: No 4. Spinous Process: No 5. Shoulder: No 6. Elbow: No 7. Iliac Crest: No 8. Sacrum/Coccyx: Yes 9. Ischial Tuberosity: No 10. Trochanter: No 11. Knee: No 12. Malleolus: No 13. Heel: No 14. Toes: No 15. Assessed for device associated injury Yes 16. Nursing Nutrition Assessment Completed Yes See Doc Flowsheet for additional wound details. INTERVENTIONS: applied barrier cream. in this encounter H&P Notes * Rafaela Parekh APRN - 07/20/2018 12:12 PM CDT Formatting of this note may be different from the original. Pre-Procedure History and Physical/Sedation Plan Procedure Date: 07/20/2018 Planned Procedure(s): G Tube placement Indication: Dysphagia and tongue cancer Chief Complaint: Dysphagia and tongue cancer History of Present Illness: Yeimy Lima is a 73 y.o. female with a history of tongue cancer and squamous cell carcinoma who presents today for procedure. Patient Active Problem List Diagnosis Date Noted Acid reflux 07/19/2018 A-fib (HCC) 07/19/2018 HTN (hypertension) 07/19/2018 Squamous cell carcinoma 07/17/2018 Tongue cancer (HCC) 07/02/2018 Past Medical History: Diagnosis Date Acid reflux controlled with omeprazole Afib (HCC) Arthritis Hyperlipidemia Hypertension Oral cancer (HCC) Past Surgical History: Procedure Laterality Date HX HIP REPLACEMENT Right 2003 HIP SURGERY Right 2007 3 surgeries 2/2 infection in joint area CARDIOVERSION 2008 LYMPHADENECTOMY Bilateral 07/17/2018 CERVICAL LYMPHADENECTOMY performed by J Luis Flores MD at [facility] OR/Periop GLOSSECTOMY Left 07/17/2018 GLOSSECTOMY/ HEMIGLOSSECTOMY performed by J Luis Flores MD at [facility] OR/Periop TISSUE TRANSFER Left 07/17/2018 TISSUE TRANSFER FREE FASCIAL FLAP WITH MICROVASCULAR ANASTOMOSIS performed by J Luis Flores MD at [facility] OR/Periop TISSUE TRANSFER 07/17/2018 TISSUE TRANSFER FREE FASCIAL FLAP WITH MICROVASCULAR ANASTOMOSIS performed by Abdi Alexandre MD at [facility] OR/Periop TISSUE GRAFT Left 07/17/2018 TISSUE TRANSFER MUSCLE/ MYOCUTANEOUS/ FASCIOCUTANEOUS FLAP WITH VASCULAR PEDICLE - HEAD/ NECK performed by Abdi Alexandre MD at [facility] OR/Periop EXPLORATION WOUND N/A 07/18/2018 EXPLORATION POSTOPERATIVE WOUND - NECK performed by Abdi Alexandre MD at [facility] OR/ Periop BIOPSY 2017 tongue REVISION TOTAL HIP ARTHROPLASTY ~2008 Prescriptions Prior to Admission Medication Sig Dispense Refill Last Dose aspirin EC 81 mg tablet Take 81 mg by mouth daily. Take with food. Past Month atenolol (TENORMIN) 50 mg tablet Take 50 mg by mouth daily. 07/16/2018 calcium carbonate-vitamin D3 (CALTRATE WITH VITAMIN D3) 600 mg(1,500mg) - 800 unit tab Take 1 tablet by mouth daily. 07/16/2018 cyanocobalamin 1,000 mcg tablet Take 1,000 mcg by mouth daily. 07/16/2018 fish oil- omega 3-DHA/EPA 300/1,000 mg capsule Take 1 capsule by mouth daily. Past Month fluticasone (FLONASE) 50 mcg/actuation nasal spray Apply 2 sprays to each nostril as directed daily. Shake bottle gently before using. 07/17/2018 HYDROcodone/acetaminophen (NORCO) 5/325 mg tablet Take 1 tablet by mouth every 6 hours as needed for Pain 07/16/2018 lisinopril (PRINIVIL; ZESTRIL) 10 mg tablet Take 10 mg by mouth daily. loratadine (CLARITIN) 10 mg tablet Take 10 mg by mouth every morning. 07/[address](+) (PRILOSEC) 40 mg capsule Take 40 mg by mouth daily before breakfast. 07/17/2018 simvastatin (ZOCOR) 40 mg tablet Take 40 mg by mouth at bedtime daily. vitamins, multiple cap Take 1 capsule by mouth daily. Past Month warfarin (COUMADIN) 5 mg tablet 5mg on Wed and Mon 7.5mg on Sun, Mon, Tues , Thur, Sat Past Week No Known Allergies Social History: Social History Substance Use Topics Smoking status: Former Smoker Packs/day: 1.50 Years: 50.00 Types: Cigarettes Quit date: 06/27/2008 Smokeless tobacco: Never Used Alcohol use 2.4 oz/week 4 Cans of beer per week History reviewed. No pertinent family history. Review of Systems A comprehensive review of systems was negative. Previous Personal Anesthetic/Sedation History: Denies adverse events related to sedation/anesthesia. Previous Family Anesthetic/Sedation History: Denies adverse events related to sedation/anesthesia. Physical Exam: Vital Signs: Last Filed In 24 Hours Vital Signs: 24 Hour Range BP: 168/67 (07/20 1113) Temp: 37 C (98.6 F) (07/20 111) Pulse: 91 (07/20 111) Respirations: 16 PER MINUTE (07/20 111) SpO2: 98 % (07/20 1113) O2 Delivery: None (Room Air) (07/20 1113) SpO2 Pulse: 93 (07/20 0800) BP: (168)/(67) ABP: (130-184)/(48-101) Temp: [36.6 C (97.9 F)-37.1 C (98.8 F)] Pulse: [55-94] Respirations: [7 PER MINUTE-26 PER MINUTE] SpO2: [93 %-100 %] O2 Delivery: None (Room Air) Intensity Pain Scale (Self Report): 6 (07/20/18 0400) General appearance: alert and no distress noted. Neurologic: Grossly normal. Lungs: Non labored. Heart: regular rate and rhythm Airway: airway assessment performed Mallampati II (soft palate, uvula, fauces visible) Head and Neck: no abnormalities noted Mouth: no abnormalities noted NPO status: Acceptable Status: Not Anesthesia Classification: ASA III (A patient with a severe systemic disease that limits activity, but is not incapacitating) Sedation/Medication Plan: Fentanyl and Midazolam Discussion/Reviews: Physician has discussed risks and alternatives of this type of sedation and above planned procedures with patient Lab/Radiology/Other Diagnostic Tests: Labs: Pertinent labs reviewed Rafaela Parekh APRN Pager [phone] * Eddie Daniels MD - 07/17/2018 7:20 AM CDT History and Physical Update Note Allergies: Patient has no known allergies. Lab/Radiology/Other Diagnostic Tests: 24-hour labs: No results found for this visit on 07/17/18 (from the past 24 hour(s)). Point of Care Testing: (Last 24 hours): I have examined the patient, and there are no significant changes in their condition, from the previous H&P performed on 06/27/18. Eddie Daniels MD Pager * J Luis Flores MD - 06/27/2018 10:30 AM CDT Formatting of this note may be different from the original. Chief Complaint Patient presents with Cancer Surveillance History of Present Illness: Yeimysarah Lima is a 73 y.o. year old female evaluated on 06/27/2018, in the Otol[facility]ology[facility]Head [facility] at the [facility]. The patient was referred by Dr. Olivares for evaluation of oral tongue cancer. Patient has history of left floor of mouth cancer treated with primary excision. 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 Since that time she has been followed by outside ENT Dr. 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 She has had multiple biopsies that have been negative. In 2016 she had a 3 cm area on the left side of the tongue that was excised, pathology showed leukoplakia. Beginning in February of this year patient began experiencing more pain and the lesion has evolved to be more ulcerative. In May of this year she had a CT of her neck, PET scan, and CT of the chest, as well as a biopsy of the lesion which showed invasive squamous cell carcinoma. PET scan showed intense uptake in the left oral tongue and floor of mouth with an SUV of 10. CT neck shows prominent level 1 lymph node. No evidence of metastatic disease in the chest. Patient reports otalgia, odynophagia, neck mass, no hemoptysis or other lesions. She has Afib on warfarin. Past Medical/Surgical History She medical history is reviewed and is non-contributory. Past surgical history reviewed and is noncontributory. Past Family/Social History Family history reviewed and is noncontributory. She Medications/Allergies/Immunizations Her current medication(s) include: No current outpatient prescriptions on file. No current facility-administered medications for this visit. Allergies: Patient has no allergy information on record. Review of Systems Constitutional: Negative for fever, weight loss and weight gain. Skin: Negative for rash, itchiness, dryness HENT: Negative for ear pain, sore throat and hoarseness. Negative for difficulty swallowing. Cardiovascular: Negative for chest pain and dyspnea on exertion (Can climb up 2 floors). Respiratory: Is not experiencing shortness of breath. Gastrointestinal: Negative for nausea and vomiting. Neurological: Negative for headaches. Lymph/Heme: Negative for lymphadenopathy or easy bruising Musculoskeletal: Negative for joint or muscle pain Psychiatric: The patient is not nervous/anxious. All other systems are negative except for that listed in the HPI. PHYSICAL EXAM: Vital Signs: BP 159/72 (BP Source: Arm, Left Upper, Patient Position: Sitting) | Pulse 73 | Ht 147.3 cm (58") | Wt 52.6 kg (116 lb) | BMI 24.24 kg/m General: Well-developed, well-nourished Communication and Voice: Clear pitch and clarity Hearing: Hearing adequate for verbal communication bilaterally Inspection: Normocephalic and atraumatic without mass or lesion Palpation: Facial skeleton intact without bony stepoffs Parotid Glands: No mass or tenderness Facial Strength: Facial motility symmetric and full bilaterally Pinna: External ear intact and fully developed External canal: Canal is patent with intact skin Tympanic Membrane: Clear and mobile External nose: No scar or anatomic deformity Internal Nose: Septum intact and midline. No edema, polyp, or rhinorrhea. TMJ: No pain to palpation with full mobility Oral cavity, Lips, Teeth, and Gums: Mucosa and teeth intact and viable. Ulcerative lesion of the left anterolateral oral tongue extending to floor of mouth. Oropharynx: No erythema or exudate, no masses or ulcerations, non-obstructive tonsils Nasopharynx: No mass or lesion with intact mucosa Hypopharynx: No masses or ulcerations, normal mucosa without pooling of secretions Larynx: Normal supraglottic and glottic structures without masses or ulcerations, normal vocal fold mobility Neck, Trachea, Lymphatics: Midline trachea without mass or lesion, palpable 1B node approximately 2 cm. Thyroid: No mass or nodularity Eyes: No nystagmus with equal extraocular motion bilaterally Neuro/Psych/Balance: Patient oriented and appropriate in interaction; Appropriate mood and affect; Gait is intact with no imbalance; Cranial nerves I -XII are intact Respiratory effort: Equal inspiration and expiration without stridor Peripheral Vascular: Warm extremities with equal pulses. Cash's test with good perfusion on left. Has small abrasion on left forearm. Small scar from skin lesion removed 30 years ago. PATHOLOGY REVIEW: Invasive SCCa left lateral tongue 05/2018 RADIOLOGIC REVIEW: 06/12/18 PET: IMPRESSION: Intense hypermetabolism in the left anterior aspect of the floor of the mouth, consistent with recurrent neoplasm. SUV max 10. 06/12/18 CT Neck: IMPRESSION: Ovoid mass of the floor of the mouth anteriorly and to the left. There is also a prominent left submandibular lymph node which may be metastatic. 06/12/18 CT Chest: IMPRESSION: No evidence of thoracic lymphadenopathy or pulmonary metastatic disease. IMPRESSION: My impression is that Ms. Liam has which I would tentatively stage as a [id number] stage 3 lesion based on imaging and clinical exam. She has afib requiring anticoagulation with warfarin. PLAN: After review of the various options including the risks, benefits and alternatives, Ms. Lima has opted to proceed with surgery as part of her overall management which I believe is reasonable for her condition. This will include wide local excision tongue and floor and mouth, bilateral supraomohyoid neck dissections, reconstruction with STSG vs osteocutaneous free flap from forearm or ALT donor sites, tracheostomy tube placement. I discussed the risks, benefits and alternatives to free tissue transfer to the head and neck with the patient. In general, free tissue transfer is successful in 95% of cases. Risks include bleeding, infection, numbness, weakness, poor wound healing, orocutaneous fistula requiring prolonged wound care and/or additional surgery. Additional risks include complications from general anesthesia including stroke, heart attack and . Yeimy Lima expressed understanding of the risks of surgery and wishes to proceed. Risks from the resection include temporary or permanent swallowing dysfunction requiring feeding tube placement, difficulty with speech, tracheostomy- dependence, severe bleeding. We will hence proceed with scheduling surgery in the near future as well as order appropriate preoperative testing and evaluation prior to surgery. Will need to determine timing of stopping anticoagulation after PAT. I believe that Ms. Lima has a good understanding of the issues involved and I answered all of her questions. Attending Physician Note I independently interviewed, examined and formulated the medical decision making for Ms. Lima. Details of my interview, examination findings, and medical decision-making confirmed the findings in the resident physician's documentation. I have personally amended the resident physician's documentation in bold where appropriate. Staff name: J Luis Flores MD in this encounter Consult Notes * Marisol Cruz RN - 07/19/2018 11:45 AM CDT Associated Order(s): CONSULT WOUND/OSTOMY TEAM NURSE Formatting of this note may be different from the original. Wound Ostomy Nursing Consult Service NAME:Yeimy Lima :1945 AGE: 73 y.o. ADMISSION DATE: 07/17/2018 DAYS ADMITTED: LOS: 2 days Reason for Consult: pressure injury Stage II or greater Assessment/Plan: Active Problems: Squamous cell carcinoma Acid reflux A-fib (HCC) HTN (hypertension) Pressure Injury 07/17/18 2300 Right;Mid Stage 2 (Active) 07/17/18 2300 Wound Location: Buttocks Pressure Injury Orientation: Right;Mid Pressure Injury Stages: Stage 2 Pressure Injury Present On Inpatient Admission: Y If this pressure injury is suspected to be device related, please select the device:: Wound Dressing Status None 07/19/2018 11:45 AM Wound Dressing and / or Treatment A & D Ointment 07/19/2018 11:45 AM Wound Drainage Amount None 07/19/2018 11:45 AM Wound Base Assessment Moist;[place] 07/19/2018 11:45 AM Surrounding Skin Assessment Dry;Intact 07/19/2018 11:45 AM Wound Status (Wound Team Only) Being Treated 07/19/2018 11:45 AM Wound Length (cm) 4.5 cm 07/19/2018 11:45 AM Wound Width (cm) 3.5 cm 07/19/2018 11:45 AM Wound Depth (cm) 0.1 cm 07/19/2018 11:45 AM Wound Volume (cm^3) 1.58 cm^3 07/19/2018 11:45 AM RECOMMEND: - Apply Vitamin A&D ointment BID and PRN to protect skin from moisture related to urine/stool and shearing against underpad. - Avoid briefs if possible and use only one disposable pad at at time underneath pt to prevent heat and moisture trapping against skin. - Implement q2 hr turning schedule using foam wedge for support. - HOB less than or equal to 30 degrees, unless contraindicated, to prevent shearing at coccyx/sacrum. Primary team is responsible for placing wound care orders including order for Vitamin A&D ointment as this comes from pharmacy. Bedside nursing staff is responsible for implementing and continuing recommendations listed above. Will continue to follow. Marisol Cruz RN, BSN, CWON Wound/Ostomy Nursing Consult Service Office: [phone] Pager: [phone] Wound/Ostomy Team Pager (After Hours/Weekends): [phone] * Georgia Mcgill RD - 07/18/2018 4:00 PM CDT Associated Order(s): CONSULT DIETITIAN CLINICAL NUTRITION Clinical Nutrition Assessment Summary NAME:Yeimy SOSAN: [id number] :1945 AGE: 73 y.o. ADMISSION DATE: 07/17/2018 DAYS ADMITTED: LOS: 1 day Nutrition Assessment of Patient: BMI Categories Adult: Acceptable: 18.5-24.9 Malnutrition Assessment: Does not meet criteria Current Oral Intake: NPO Estimated Calorie Needs: 9287-4415 (30-35 kcal/kg admit wt) Estimated Protein Needs: 65-75 (1.3-1.5g/kg admit wt) Oral Diet Order: NPO Comments: 73 y.o. female with h/o oral CA, afib, GERD, HTN and HLD with left hemiglolssectomy, radical neck dissection and trach 07/17 with flap faillure; back to OR 07/18 for neck exploration, debridement and reconstruction. Pt NPO with NGT. 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 Was still able to eat soft foods including fish/beans, yogurt and vegetables BREAST SURGEON just smaller amounts than before. Does not meet criteria for malnutrition. Consult received for EN recs Stage II pressure injury to buttocks. Recommendation: Recommend starting Isosource 1.5 @ 20 ml/hr with goal of 45 ml/hr (1620 kcal, 73 g protein and 821 ml free water from EN at goal). Once continuous feeds tolerated if bolus feeds desired, transition to Isosource 1.5, 1 carton (250 ml) x 4 with 1/2 carton (125 ml) x 1 for total of 4.5 cartons per day in 5 feeds. 30 ml water flush before and after each feeding and additional 150 ml water bolus q6hr between feeds. 1688 kcal, 77 g protien and 1755 ml free water at goal. Intervention / Plan: assessed nutritoinal status, obtained subjective data, provided EN recs monitor wt trends, labs, meds and GI status monitor EN start, tolerance and provision; ordered supplemental vit C and zinc Nutrition Diagnosis: Altered GI function Etiology: respiratory/swallowing deficits s/p oral surgery for CA Signs & Symptoms: NPO with plans for EN feeds via NGT Increased nutrient needs, specify: (kcal/protein) Etiology: demands for wound healing Signs & Symptoms: stage II pressure injury to buttock Goals: EN tolerated and meeting >75% of nutritional needs Time Frame: Within 72 Hours Georgia Mcgill, MS,RD, LD, CNSC *[id number] in this encounter Miscellaneous Notes * Case Mgmt DC Shahzad - Nalini Green - 07/24/2018 11:49 AM CDT Formatting of this note may be different from the original. Case Management Progress Note NAME:Yeimy Lima :1944 AGE: 73 y.o. ADMISSION DATE: 07/17/2018 DAYS ADMITTED: LOS: 7 days Todays Date: 07/24/2018 Plan [facility] notified by [facility] that portable suction was not delivered to her for bedside delivery and she has other obligations today and works tomorrow. Jasmyn states pt would likely have delayed d/c. [facility] suggesting a loaner suction and pt d/c home and get ALL equipment through branch office. [facility] coordinating with [employer] [facility] [phone] and Jeri Pandya/Celine and Loaner sxn approved for delivery. [employer] notified. Pt able to d/c home safely today per original plan with no delays. ' UPDATE: [facility] updated agencies that pt is walking out the door and faxed all providers AVS and lab values for monitoring. Interventions ? Support Support: Other ? Info or Referral ? Discharge Planning ? Medication Needs ? Financial ? Legal ? Other Disposition ? Expected Discharge Date Expected Discharge Date: 07/24/18 ? Transportation Does the patient need discharge transport arranged?: No Transportation Name, Phone and Availability #1: family ? Next Level of Care (Acute Psych discharges only) ? Discharge Disposition Durable Medical Equipment No service has been selected for the patient. Destination No service has been selected for the patient. Home Care No service has been selected for the patient. Dialysis/Infusion No service has been selected for the patient. Jaimie Green RN Nurse Cofounder * Case Mgmt DC Shahzad - Nalini Green - 07/24/2018 9:53 AM CDT Formatting of this note may be different from the original. Case Management Progress Note NAME:Yeimy Lima :1944 AGE: 73 y.o. ADMISSION DATE: 07/17/2018 DAYS ADMITTED: LOS: 7 days Todays Date: 07/24/2018 Plan NCM discussing d/c planning with [employer] F[employer]NACE TENDER/SW in huddle. Pt to leave after bedside portable suction delivered, Rad Onc consult occurs. NCM to pt bedside to answer d/c questions, pt directed to call [facility] and DME when driving away from hospital to alert them of home arrival to accept DME. NCM notifying all provider/agencies of d/c today. NCM sent faxed, signed orders to [employer] [facility], DME provider and Piano Regulator Inspector following INR. [facility] P: [phone] F: [phone] and INR to be drawn by agency on and reported to [facility] Piano Regulator Inspector Dr Salvador Zamarripa P: [phone] F: [phone]. Durable Medical Equipment: portable suction to be provided by [facility] (delivered to bedside prior to discharge) and home delivery of heated humidification and PEG tube feeds, (delivered to the home, same day as discharge) P: [phone] F: [phone] Pt verbalized understanding that medical appointments cannot occur on same day as physician appointments. [facility] sent task to [facility] to fax all physician, P[employer]ER and DME providers AVS TODAY post d/c. Interventions ? Support Support: Pt/Family Updates re:POC or DC Plan, Patient Education ? Info or Referral ? Discharge Planning ? Medication Needs ? Financial ? Legal ? Other Disposition ? Expected Discharge Date Expected Discharge Date: 07/24/18 ? Transportation Does the patient need discharge transport arranged?: No Transportation Name, Phone and Availability #1: family ? Next Level of Care (Acute Psych discharges only) ? Discharge Disposition Durable Medical Equipment No service has been selected for the patient. Destination No service has been selected for the patient. Home Care No service has been selected for the patient. Dialysis/Infusion No service has been selected for the patient. Jaimie Green RN Nurse Cofounder * Care Plan - Cassie Chris RN - 07/24/2018 4:24 AM CDT Problem: Skin Integrity Goal: Healing of skin (Wound & Incision) Outcome: Goal Ongoing Skin surgical incision cleaned with diluted hydrogen peroxide and vaseline. No evidence of infection at incisional site. RN will continue to monitor Goal: Healing of skin (Pressure Ulcer) Outcome: Goal Ongoing Patient turned Q 2 hours to redistribute pressure. A and D ointment applied to buttock wound * Case Mgmt DC Plan - Nalini Green - 07/23/2018 4:33 PM CDT Formatting of this note may be different from the original. Case Management Admission Assessment NAME:Yeimy Lima :1944 AGE: 73 y.o. ADMISSION DATE: 07/17/2018 DAYS ADMITTED: LOS: 6 days Todays Date: 07/23/2018 Source of Information: patient Plan Plan: CM Assessment NCM to pt room and pt in bed with spouse in bedside chair NCM discussing d/c planning and confirming they want [facility] of: [facility] P: [phone] F: [phone] Pt/spouse confirm and NCM educated that agency has confirmed acceptance NCM discussing DME and family requesting assist in finding DME provider in [facility] through NCM assist. NCM coordinating d/c planning through pt Piano Regulator Inspector upon d/c Dr Salvador Zamarripa P: [phone] F: [phone] NCM to request [employer] do first INR on post d/ c on Monday. Patient Address/Phone [address] [facility] [address] (home) Emergency Contact Extended Emergency Contact Information Primary Emergency Contact: Chance Molina [facility] Mobile Relation: Spouse Healthcare Directive Healthcare Directive: Yes, patient has a healthcare directive Type of Healthcare Directive: Durable power of commercial litigation attorney for healthcare, Healthcare directive Location of Healthcare Directive: Copy in paper chart Would patient like to fill out a (a new) Healthcare Directive?: N/A Transportation Does the patient need discharge transport arranged?: No Transportation Name, Phone and Availability #1: family Expected Discharge Date Expected Discharge Date: 07/24/18 Living Situation Prior to Admission ? Living Arrangements Type of Residence: Home, independent Living Arrangements: Spouse/significant other Bathroom Shower / Tub: Walk-in Shower Can patient live on one level if needed?: Yes Are they in good health?: Yes Can support system provide 24/7 care if needed?: Yes ? Level of Function Prior level of function: Independent ? Cognitive Abilities Cognitive Abilities: Alert and Oriented Financial Resources ? Coverage Primary Insurance: Medicare ? Source of Income Source Of Income: SSI ? Financial Assistance Needed? copay affordable Psychosocial Needs ? Mental Health Mental Health History: No ? Substance Use History ? Other na Current/Previous Services ? PCP Hyacinth Arias, , None ? Pharmacy [id number] [address] [facility] [address] [facility] [id number] ? Durable Medical Equipment ? Home Health Receiving home health: In the past Agency name: [facility] P: [phone] F: [phone] Would patient use this agency again?: Yes ? Hemodialysis or Peritoneal Dialysis Undergoing hemodialysis or peritoneal dialysis: No ? Tube/Enteral Feeds Receive tube/enteral feeds: No ? Infusion Receive infusions: No ? Private Duty Private duty help used: No ? Home and Community Based Services ? Matt Bajwa: N/A ? Hospice Hospice: No ? Outpatient Therapy ? Halfway Facility/Senior Living SNF: No NH: No ? Inpatient Rehab ? [facility] Hospital ? Acute Hospital Stay Acute Hospital Stay: No Jaimie Green RN Nurse Cofounder Case Management Progress Note NAME:Yeimy Lima :1944 AGE: 73 y.o. ADMISSION DATE: 07/17/2018 DAYS ADMITTED: LOS: 6 days Todays Date: 07/23/2018 Plan Pt to d/c home tomorrow with P[facility]ER HANGER: [facility] P: [phone] F: [phone] and INR to be drawn by agency on and reported to [facility] Piano Regulator Inspector Dr Salvador Zamarripa P: [phone] F: [phone]. DME, portable suction to be provided by [facility], and home delivery of heated humidification and PEG tube deeds P: [phone] F: [phone] Pt verbalized understanding that medical appointments cannot occur on same day as physician appointments. Interventions ? Support ? Info or Referral ? Discharge Planning ? Medication Needs ? Financial ? Legal ? Other Disposition ? Expected Discharge Date Expected Discharge Date: 07/24/18 ? Transportation Does the patient need discharge transport arranged?: No Transportation Name, Phone and Availability #1: family ? Next Level of Care (Acute Psych discharges only) ? Discharge Disposition Durable Medical Equipment No service has been selected for the patient. Destination No service has been selected for the patient. Home Care No service has been selected for the patient. Dialysis/Infusion No service has been selected for the patient. Jaimie Green RN Nurse Cofounder * Care Plan - Stefany Arce RN - 07/23/2018 12:43 PM CDT Problem: Infection, Risk of, Urinary Catheter-Associated Urinary Tract Infection Goal: Absence of urinary catheter-associated infection Outcome: Goal Achieved Date Met: 07/23/18 Howard removed Problem: Respiratory Impairment (Non-Ventilated Patient) Goal: Effective gas exchange Outcome: Goal Ongoing Pt has needed suctioning twice today imbetween RT tx. Problem: Nutrition Deficit Goal: Adequate nutritional intake Outcome: Goal Ongoing Pts PEG tube running slow. Pancrealipase used this AM. Pts enteral feed take 30 min. to infuse. Plan to discuss with Physician during rounds. Problem: Mobility/Activity Intolerance Goal: Maximize functional ADL's and mobility outcomes Outcome: Goal Ongoing Pt got up to chair today. Fatigued would like to nap this afternoon. Problem: Skin Integrity Goal: Skin integrity intact Outcome: Goal Ongoing A and D ointment applied to pressure sore. This RN offered pants. Pt refused. Plan to change patient positions q2h. Goal: Healing of skin (Wound & Incision) Outcome: Goal Ongoing Pts incisions have no sign of infection at this time. Goal: Healing of skin (Pressure Ulcer) Outcome: Goal Ongoing Pt able to ambulate with SB assistance. Plan to walk with pt later this afternoon. * Procedures (Immed Post or Bedside) - Agustin Kumar MD - 07/20/2018 2:07 PM CDT Immediate Post Procedure Note Date: 07/20/2018 Attending Physician: Ramesh Kumar MD Procedure(s): G tube Pre/Post Diagnosis: Oral ca, assisted feds Description/Findings: none Anesthesia: 2% lidocaine Time out performed: Consent obtained, correct patient verified, correct procedure verified, correct site verified, patient marked as necessary. Estimated Blood Loss: None/Negligible Specimen(s) Removed/Disposition: None Complications: None Agustin Kumar MD * Anesthesia Post Op Day 1 - Tal Valderrama, CRYSTAL - 07/19/2018 10:39 AM CDT Formatting of this note may be different from the original. Anesthesia Follow-Up Evaluation: Post-Procedure Day One Name: Yeimy Lima : 1945 Age: 73 y.o. Sex : female Procedure Date: 07/18/2018 Procedure: Procedure(s): EXPLORATION POSTOPERATIVE WOUND - NECK Physical Assessment Height: 144.8 cm (57.01") Weight: 51.9 kg (114 lb 6.7 oz) Vital Signs (Last Filed in 24 hours) BP: 132/69 (07/19 0945) Temp: 36.2 C (97.2 F) (07/19 1000) Pulse: 71 (07/19 1000) Respirations: 11 PER MINUTE (07/19 1000) SpO2: 99 % (07/19 1000) O2 Delivery: Trach Shield (07/19 1000) SpO2 Pulse: 78 (07/19 1000) Patient History Allergies No Known Allergies Medications Scheduled Meds: acetaminophen (TYLENOL) oral solution 650 mg 650 mg Per NG tube Q4H ampicillin/sulbactam (UNASYN) 3 g in sodium chloride 0.9% (NS) 100 mL IVPB (MB+ ) 3 g Intravenous Q6H* antiseptic mucus solvent 120 mL solution 2 spray 2 spray Tracheal Tube Q2H while awake ascorbic acid (VITAMIN C) tablet 500 mg 500 mg Per NG tube QDAY aspirin EC tablet 81 mg 81 mg Oral QDAY atenolol (TENORMIN) tablet 50 mg 50 mg Per NG tube QDAY barium sulfate 40 % (VARIBAR THIN LIQUID ) oral powder for suspension 120 mL 120 mL Per NG tube ONCE calcium carbonate/vitamin D-3 (OSCAL-500+D) 1250 mg/200 unit tablet 1 tablet 1 tablet Per NG tube QDAY docusate (COLACE) oral solution 100 mg 100 mg Per NG tube BID [START ON 07/21/2018] folic acid (FOLVITE) tablet 1 mg 1 mg Oral QDAY heparin (porcine) PF syringe 5,000 Units 5,000 Units Subcutaneous Q8H lidocaine (LIDODERM) 5 % topical patch 1 patch 1 patch Topical QDAY lisinopril (PRINIVIL; ZESTRIL) tablet 10 mg 10 mg Per NG tube QDAY loratadine (CLARITIN) tablet 10 mg 10 mg Per NG tube QAM8 pantoprazole(#) (PROTONIX) suspension 80 mg 80 mg Per NG tube QDAY(21) simvastatin (ZOCOR) tablet 40 mg 40 mg Per NG tube QHS sodium chloride 0.9% (NS) 1,000 mL with multivitamin, adult 10 mL, folic acid 1 mg, thiamine (VITAMIN B-1) 100 mg IV infusion Intravenous QDAY [START ON 07/21/2018] thiamine mononitrate tablet 100 mg 100 mg Oral QDAY zinc sulfate capsule 220 mg 220 mg Per NG tube QDAY Continuous Infusions: PRN and Respiratory Meds:bisacodyl QDAY PRN, diphenoxylate/atropine QID PRN, milk of magnesia (CONC) PRN, morphine injection syringe Q2H PRN, ondansetron ( ZOFRAN) IV Q6H PRN, oxyCODONE Q4H PRN, pancrelipase 20,000 Units/ sodium bicarbonate 650 mg(#) PRN (Meat Grader from Rx) Diagnostic Tests Hematology: Lab Results Component Value Date HGB 7.4 07/19/2018 HCT 21.5 07/19/2018 PLTCT 143 07/19/2018 WBC 9.5 07/19/2018 NEUT 69 07/17/2018 ANC 3.80 07/17/2018 ALC 1.10 07/17/2018 JESICA 7 07/17/2018 AMC 0.40 07/17/2018 EOSA 3 07/17/2018 ABC 0.00 07/17/2018 MCV 93.3 07/19/2018 MCH 32.2 07/19/2018 MCHC 34.5 07/19/2018 MPV 7.6 07/19/2018 RDW 15.9 07/19/2018 General Chemistry: Lab Results Component Value Date NA 134 07/19/2018 K 4.0 07/19/2018 CL 106 07/19/2018 CO2 24 07/19/2018 GAP 4 07/19/2018 BUN 17 07/19/2018 CR 0.93 07/19/2018 GLU 154 07/19/2018 CA 8.6 07/19/2018 OBSCA 1.08 07/17/2018 MG 2.1 07/19/2018 PO4 2.1 07/19/2018 Coagulation: Lab Results Component Value Date PTT 22.6 07/17/2018 INR 1.1 07/17/2018 Follow-Up Assessment Patient location during evaluation: floor Anesthetic Complications: Anesthetic complications: The patient did not experience any anesthestic complications. Pain: Score: 2 Management:adequate Level of Consciousness: awake Hydration:acceptable Airway Patency: patent Respiratory Status: Respiratory status: Trach with trach shield. Cardiovascular Status:acceptable and stable Regional/Neuroaxial: * Procedures (Immed Post or Bedside) - Leidy Waldron MD - 07/18/2018 10:41 AM CDT Brief Operative Note Name: Yeimy Lima is a 73 y.o. female : 1945 DATE OF OPERATION: 07/18/2018 Date: 07/18/2018 Preoperative Dx: Tongue cancer (HCC) [C02.9] Post-op Diagnosis * Tongue cancer (HCC) [C02.9] Procedure(s): EXPLORATION POSTOPERATIVE WOUND - NECK Anesthesia Type: Defer to Anesthesia Surgeon(s) and Role: * Leidy Waldron MD - Resident - Assisting * Abdi Alexandre MD - Primary Findings: On initial exam, intraoral pec flap skin paddle congested/mottled in appearance. Pinprick with darker blood in some areas and bright red blood in others. On neck exploration, moderate hematoma noted within lateral gutter, evacuated and copiously irrigated. Pec pedicle identified using doppler, good flow. A branch of the left facial vein noted to be oozing, this was clipped. A new LENI drain was placed under the pec flap and extending into the lateral gutter. Estimated Blood Loss: 30 cc Specimen(s) Removed/Disposition: none Complications: None Implants: None Drains: 19 FR LENI drain Disposition: ICU - stable Leidy Waldron MD Pager [phone] Associated attestation - Abdi Alexandre MD - 07/19/2018 8:01 AM CDT Formatting of this note may be different from the original. ATTESTATION I performed this procedure personally, with the assistance of Dr. Waldron. I was scrubbed for the entire procedure except for the final layer of skin closure. Staff name: Abdi Alexandre MD Date: 07/19/2018 * Operative Report (DICTATED ONLY) - Abdi Alexandre MD - 07/18/2018 9:40 AM CDT THE [address] [address] PATIENT NAME: YEIMY LIMA MR#/PT#: [id number] Page 2 OPERATIVE REPORT DATE OF OPERATION: 07/18/2018 SURGEON: Abdi Alexandre MD VEHICLE FUEL SYSTEMS CONVERTER(S): Leidy Waldron MD. PREOPERATIVE DIAGNOSIS: 1. History of tongue cancer. 2. History of pectoralis major flap with suspected skin paddle compromise. POSTOPERATIVE DIAGNOSIS: Same. OPERATIVE PROCEDURE: Neck exploration. ANESTHESIA: General endotracheal anesthesia via established tracheostomy. INDICATIONS FOR OPERATIVE PROCEDURE: This is a very pleasant 73-year-old female with a history of tongue cancer that was resected yesterday. Reconstruction was performed using a pectoralis major myocutaneous flap after failure of a radial forearm free flap intraoperatively. There was concern for compromise of the flap skin paddle when the patient was seen on rounds, so we proceeded to the operating room for neck exploration. DESCRIPTION AND FINDINGS OF OPERATIVE PROCEDURE: Intraoperative findings: On initial examination this morning, the patient's overall skin paddle appeared dark and congested throughout the central portion of the skin paddle. There was also bruising around the neck incisions. Pinprick to the skin paddle showed return of slow dark blood. We elected to proceed with neck exploration and intraoperatively we identified approximately 20 mL congealed hematoma deep to the pectoralis muscle. There was a small branch of the left facial vein that was identified as the source of bleeding and was controlled. Upon evacuation of the hematoma, we had improvement in color and bleeding of the flap skin paddle. Description of procedure: After discussing the risks and benefits of the procedure with the patient, informed consent was obtained. The patient was taken to the operating room where she was placed on the operating table in a supine position. Time-out was called with the correct patient identification, drug allergies, and procedure identified and verified by myself, anesthesia staff, and nursing staff. General anesthesia was induced and she was ventilated through her tracheostomy tube. She was then prepped and draped in the usual sterile fashion. Pinprick test of the intraoral skin paddle showed slow dark red blood. The central area of the skin paddle was congested. The lateral portion was more pale in appearance. The lateral portion did have some slow bright red blood on pinprick. We then proceeded to open the left neck by cutting the Prolene sutures and then bluntly opening the rest of the incision. The pectoralis muscle was identified just beneath the skin flaps. It was healthy in appearance with a good pink color. Deep to the pectoralis muscle, there was congealed hematoma that was evacuated. We irrigated thoroughly throughout the wound bed. There was a small branch off the facial vein that was identified as the bleeding source, this was doubly clipped. We then inspected intraorally again and after a few minutes, we had improvement in the color of the skin paddle and upon cutting it with a 15 blade, the central areas were bleeding with more bright red blood. We checked again the orientation of the pectoralis major muscle and confirmed that it did not appear to be kinked. We checked the tunnels and there appeared to be adequate room around the muscle without compression. We used a doppler probe and we are able to doppler out the pedicle within the muscle itself. We then replaced the drain on the left side and placed it deep to the pec muscle down into the inferior aspect of the cavity and then up into the gutter of the neck dissection. This was secured using 2-0 silk drain stitch. We then proceeded with closure. The neck was closed loosely with 3-0 Vicryl deep dermals only (no platysma closure) over the pec muscle, so that we did not have a tight closure over the top of it. The skin was closed with a 4-0 prolene running suture. The patient was then turned back over the anesthesia. General anesthetic was reversed. She was awakened in the operating room and taken to the Neuro ENT ICU in stable condition. At the end of the procedure, all sponge and instrument counts were correct times 2. I present for all portions of the procedure except the final layer of skin closure. I performed the procedure with the assistance of Dr. Waldron ESTIMATED BLOOD LOSS: Total of 30 mL. SPECIMENS REMOVED: none Abdi Alexandre MD JRB / MEDQ /[id number] cc: - Abdi Alexandre MD * Procedures (Immed Post or Bedside) - J Luis Flores MD - 07/17/2018 10:41 AM CDT Formatting of this note may be different from the original. Brief Operative Note - Otolaryngology-Head and Neck Surgery Pre-Operative Diagnosis: oral cancer Post-Operative Diagnosis: same Procedure(s): left hemiglossectomy Bilateral modified radical neck dissection tracheostomy Surgeon(s): Oscar Test Facility Engineer Surgeon(s): Layo Daniels Estimated Blood Loss: 250 cc for this portion of the procedure Specimen(s): sent to pathology Findings: negative frozen section margins Complications: None ATTESTATION I performed this procedure with a resident. Staff name: J Luis Flores MD Date: 07/17/2018 * Operative Report (Direct Entry) - J Luis Flores MD - 07/17/2018 8:46 AM CDT Formatting of this note may be different from the original. OPERATIVE REPORT Name: Yeimy Lima is a 73 y.o. 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 Description of Operative Procedure: The patient was brought to the operating room and laid supine.The patient was sedated and intubated by the anesthesia team.Eye protection, shoulder roll, and a head wrap were placed. The head of bed was rotated 180 clockwise. Proposed incision sites were marked and injected with 1% lidocaine with 1 100, 000 epinephrine. The right lower extremity and right upper extremity were prepared for possible free flap or skin graft harvest. A surgical timeout was then held. Tracheostomy site was marked and prepped and then injected with 1% lidocaine with 1:100,000 epinephrine. The head and neck as well as the free flap harvest sites were then prepped and draped in usual sterile fashion. A 15 blade was used to make incision for tracheostomy site. A skin incision about 3 cm in length was made. We then used a bovie electrocautery to open the subcutaneous fat. There strap muscles were divided at midline. The thyroid isthmus was divided at midline using bovie. The trachea was then opened between the 1st and 2nd tracheal rings using 15 blade. Maldonado scissors was used to extend the opening in the anterior tracheal wall and do a Olvin flap. The Olvin flap was then fixed to the skin of the neck using 2.0 silk half mattress suture. The endotracheal tube was then exchanged with a 7.0 armored ET tube and Fixed to the skin with silk sutures. There was good ventilation. Attention was then turned to the mouth. The lips were retracted using plastic cheek retractor. The jaw was opened using Denhart retractor. A 2-0 silk stitch was used to pull the tongue anteriorly. The mucosal incision around the left ventral tongue tumor were marked making sure to take at least 1 cm safety margin all around the tumor. We then moved to resection of the tumor with safety margin. We started anteriorly using the monopolar electrocautery and moving from anterior to posterior making sure to take adequate deep margins. The lingual artery and vein were clipped. Left hemiglossectomy was done including the deep tongue muscles. Mucosal margins were taken from the tongue mucosa and floor of mouth mucosa. Deep margins from tongue musculature were also taken. All margins were sent for frozen section and later returned back as free from tumor. Attention was then turned to the right neck. An apron skin incision was made from the region of the right mastoid tip to the left mastoid tip, in the direction of the relaxed skin tension lines. Sub-platysmal flaps were created in the caudad and cephalad direction bilaterally. The flaps were then tacked to the drapes, and the dissection of the apple basins was performed. The right submandibular gland was identified and dissected free from the underlying digastric muscle, which was followed posteriorly. The facial artery and vein were identified and clipped distally to be used for microvascular anastomosis. They were dissected away from the submandibular gland. The submandibular gland was removed after clipping the duct and submandibular ganglion. The 12th cranial nerve and the lingual nerve were both visualized and preserved. Dissection was then performed along the digastric muscle to help identify and preserve the 12th cranial nerve, the jugular vein, the 11th cranial nerve and the sternocleidomastoid muscle. All of these structures were visualized and left intact.Dissection was then performed around these structures, unwrapping the fascia on the underside of the SCM in order to exposure the lymphatics in the deep neck. The cervical rootlets were then identified, and used as a posterior and deep boundary for dissection. The inferior extent of the surgery was then determined, and the lymphatics in this region were dissected and ligated from the remaining underlying lymphatics of the supraclavicular region. The entire specimen was then retracted medially, onto the carotid sheath, at which point it was carefully resected off of the jugular vein and carotid artery.The area was irrigated, full hemostasis was confirmed, valsalva maneuver was performed, and hemostasis was again confirmed. Attention was then turned to the left neck. The left submandibular gland was identified and dissected free from the underlyingdigastric muscle, which was followed posteriorly. The facial artery and vein were identified and clipped distally to be used for microvascular anastomosis. They were dissected away from the submandibular gland. The submandibular gland was removed after clipping the duct and submandibular ganglion. The 12th cranial nerve and the lingual nerve were both visualized and preserved. Dissection was then performed along the digastric muscle to help identify and preserve the 12th cranial nerve , the jugular vein, the 11th cranial nerve and the sternocleidomastoid muscle. All of these structures were visualized and left intact.Dissection was then performed around these structures, unwrapping the fascia on the underside of the SCM in order to exposure the lymphatics in the deep neck. The cervical rootlets were then identified, and used as a posterior and deep boundary for dissection. The inferior extent of the surgery was then determined, and the lymphatics in this region were dissected and ligated from the remaining underlying lymphatics of the supraclavicular region. The entire specimen was then retracted medially, onto the carotid sheath, at which point it was carefully resected off of the jugular vein and carotid artery.The area was irrigated, full hemostasis was confirmed, valsalva maneuver was performed, and hemostasis was again confirmed. No chyle leak was noted. This concluded the ablative portion of the procedure. Please see Dr. Alexandre and Dr. Vasques's separate dictation for the reconstructive portion of the procedure. remained scrubbed for all portions of this procedure. Estimated Blood Loss: 450 ml Specimen(s) Removed/Disposition: ID Type Source Tests Collected by Time Destination 1 : left hemiglossectomy; short stitch=anterior, long stitch=dorsal Tissue Oral Cavity SURGICAL PATHOLOGY J Luis Flores MD 07/17/2018 09 2 : anterior dorsal tongue mm Tissue Oral Cavity SURGICAL PATHOLOGY J Luis Flores MD 07/17/2018 0904 3 : posterior dorsal tongue mm Tissue Oral Cavity SURGICAL PATHOLOGY J Luis Flores MD 07/17/2018 0904 4 : posterior floor of mouth mm Tissue Oral Cavity SURGICAL PATHOLOGY J Luis Flores MD 07/17/2018 0905 5 : anterior floor of mouth mm Tissue Oral Cavity SURGICAL PATHOLOGY J Luis Flores MD 07/17/2018 0905 6 : ventral tongue mm Tissue Oral Cavity SURGICAL PATHOLOGY J Luis Flores MD 07/17/2018 0907 7 : deep margin Tissue Oral Cavity SURGICAL PATHOLOGY J Luis Flores MD 07/17/2018 0907 8 : left level 1 neck Tissue Neck,Left SURGICAL PATHOLOGY J Luis Flores MD 07/17/2018 0940 9 : left neck dissection levels 2,3,4 Tissue Neck,Left SURGICAL PATHOLOGY J Luis Flores MD 07/17/2018 0945 10 : right level 1 neck Tissue Neck,Right SURGICAL PATHOLOGY J Luis Flores MD 07/17/2018 1000 11 : right neck dissection levels 2,3,4 Tissue Neck,Right SURGICAL PATHOLOGY J Luis Flores MD 07/17/2018 1021 Eddie Daniels MD Pager [phone] * Operative Report (DICTATED ONLY) - Abdi Alexandre MD - 07/17/2018 8:46 AM CDT [facility] [address] [id number] PATIENT NAME: YEIMY LIMA MR#/PT#: [id number] Page 2 OPERATIVE REPORT DATE OF OPERATION: 07/17/2018 SURGEON: Abdi Alexandre MD CO-SURGEON(S): DO Eddie Tavarez MD PREOPERATIVE DIAGNOSIS: 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 POSTOPERATIVE DIAGNOSIS: Same. OPERATIVE PROCEDURE: 1. Left fasciocutaneous radial forearm free flap. 2. Left pectoralis major myocutaneous flap. 3. Split-thickness skin graft from left thigh. ANESTHESIA: General endotracheal anesthesia via tracheostomy tube. 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 She underwent left hemiglossectomy with resection of tongue and floor of mouth, bilateral modified radical neck dissection and tracheostomy with Dr. Flores. I was asked to perform reconstruction of the defect. DESCRIPTION AND FINDINGS OF OPERATIVE PROCEDURE: Intraoperative findings: Left fasciocutaneous radial forearm free flap harvested, 9 x 13 cm in dimension and anastomosed end-to-end to the right superior thyroid artery and coupled to the right facial vein, the flap had poor perfusion after arterial anastomosis x2, so the radial forearm free flap was aborted and we proceeded to reconstruction with pectoralis major flap. Description of procedure: After discussing risks and benefits of the procedure with the patient, informed consent was obtained. The patient was taken to the operating room. She was placed on the operating table in supine position. Time -out was performed and Dr. Flores proceeded with his portion of the procedure. Once the tumor had been removed and we had confirmation of negative margins, we did proceed with harvest of the free flap. Preoperatively, the patient had been evaluated with an Cash's test, which showed good perfusion to the entire hand with compression of the radial artery. We palpated the radial artery in the wrist, marked it out proximally onto the forearm. We marked out a cephalic vein as well and then outlined a skin paddle that would fit the approximately 9 x 13 cm defect. The arm was then exsanguinated with an Esmarch and the tourniquet was inflated to 250 mmHg for a total of 90 minutes. The Esmarch was then removed and we began the procedure by incising the skin paddle with a 15 blade and carrying the incision in a lazy S fashion up towards the antecubital fossa. We first elevated subcutaneous flaps proximally in the forearm tracing out and preserving the cephalic vein. We then continued incision around the skin paddle down to and through the underlying muscle fascia. The flap was then elevated in a subfascial plane both on the ulnar side and the radial side towards the lateral intramuscular septum. We did take care to preserve paratenon on the tendon of the flexor carpi radialis. During elevation on the radial side, we identified and preserved the superficial branch of the radial nerve. Once we reached the lateral intramuscular septum from both the radial and the ulnar side, we proceeded with proximal pedicle identification between the muscle bellies of the flexor carpi radialis and the brachioradialis. We then identified the pedicle distally at the wrist, the artery and veins were isolated and ligated with 2-0 silk ties. We were then able to raise the flap in a distal to proximal fashion taking down muscular branches off the pedicle as we encountered them along the entire course. A connection between the venae comitantes and the cephalic vein was preserved. The arterial pedicle was traced up to the branch point of the recurrent radial artery, which was also preserved. The tourniquet was then let down and the flap was allowed to reperfuse. There was good bleeding from the skin paddle at this time and there was good venous return as well. While the flap was reperfusing in the forearm, I did move to the neck to prepare blood vessels for free tissue transfer. I then went back down to the forearm site and evaluated the free flap, which was perfusing and had good color and slow bright red bleeding from the skin paddle. The flap was harvested and taken up to the neck. We flushed the artery with heparinized saline taking care not to damage the intima. We then proceeded with anastomosis of the radial artery to the superior thyroid artery. This was done with 9-0 nylon in interrupted fashion. The venous system was connected using a 3.5 supervisor agricultural education. The vascular clamps were let down. Visually we did have good flow through the arterial anastomosis. This was Dopplered up through the length of the arterial pedicle, up to the free flap skin paddle itself but there did not appear to be adequate bleeding from the flap skin paddle. The artery was treated with topical lidocaine for vasospasm and the neck skin flaps were brought down over the pedicle to warm it, however these maneuvers did not result in improved bleeding. At this time, the arterial anastomosis was taken down and checked for clots. There was a small clot that was removed from the recipient artery and retrograde from the donor artery. Again, we flushed with heparinized saline to clear any clotted blood and the anastomosis was re performed. Once again, there was visible pulsation across the arterial anastomosis, although it was more sluggish, and the Doppler signal was traced up to the skin paddle. The skin paddle was checked again multiple times and did not show good bleeding. At this point due to the length of the ischemia time, we elected to abort the free flap procedure and harvest a pectoralis major flap myocutaneous flap. We marked out superficial landmarks on the left chest and outlined an appropriate sized skin paddle. We then incised through the skin on the lateral aspect of the incision first coming down through fascia and identifying the pectoralis muscle itself. We then carried the incision down inferiorly to the distal aspect of the pec to make sure that we incorporated the entire muscle. Our incision was then extended laterally out to the mid axillary line and subcutaneous flaps were elevated out to the lateral extent of the pectoralis major flap. The rest of the incisions around the skin paddle were then made and the skin paddle was inspected and it was shown to be bleeding well. Next we elevated in a subcutaneous plane up over the clavicle to create a tunnel connecting the chest and neck cavities. I then incised the pectoralis muscle all the way around the skin paddle and began elevating the flap up off the chest wall in a place above the perichondrium of the rib. Once the muscle had been partially elevated, I tacked down the skin paddle to the muscle to prevent shearing of the skin perforators. As we continued our elevation superiorly and laterally, the pedicle was identified on the undersurface of the pectoralis major muscle and was preserved. We took down the humeral attachments of the pectoralis major to maximize our mobility. Medially, care was taken to avoid communication with the tracheostomy site. We tested the width of the tunnel connection to the neck, which was at least 4 of my fingers. The pectoralis flap was then rotated up into the neck. We widened our previously created tunnel from the neck to the oral cavity and then passed the pectoralis flap through the tunnel into the mouth and proceeded with inset of the flap into the defect. 3-0 vicryl interrupted horizontal mattress sutures were used to perform a watertight closure, laterally and anteriorly the sutures were circumdental. At this point, drains were placed - two into the chest, one laterally and one medially; and two into the neck. They were all 19 Fr LENI drains. The neck was closed in layers using interrupted 3-0 Vicryl suture for platysma and 4-0 vicryl for deep dermal layers. A 4-0 Prolene simple running suture was used for skin closure. The chest was closed with 3-0 vicryl interrupted suture for the deep layer and jacqueline for the skin. We did harvest a split thickness skin graft of thickness from the left thigh and used it to cover the left radial forearm donor site. The skin graft was sewn on using 4-0 chromic. There was one 19 Fr LENI drain that was placed in the arm. A bolster was placed over the skin graft and sewn down to the skin. We then placed the patient into an immobilizing splint to prevent shearing of the muscles underneath the skin graft. The patient was then turned over to anesthesia. General anesthetic was reversed. She was awakened in the operating room and taken to the Neuro/ENT ICU in stable condition. At the end of the procedure, all sponge and instrument counts were correct times 2. I performed this procedure with the assistance of Dr. Vasques and Dr. Daniels. ESTIMATED BLOOD LOSS: 500 mL. SPECIMENS REMOVED: none MD MISSY Chaudhary / MEDQ /[id number] cc: - Abdi Alexandre MD - Rod Vasques DO in this encounter Plan of Treatment Name Priority Associated Diagnoses Date/Time TRANSFUSE RBC'S NON-BLEEDING PT Routine 07/18/2018 8:09 AM CDT TRANSFUSE RBC'S NON-BLEEDING PT Routine 07/18/2018 8:09 AM CDT TRANSFUSE RBC'S NON-BLEEDING PT Routine 07/19/2018 9:43 AM CDT TRANSFUSE RBC'S NON-BLEEDING PT Routine 07/19/2018 9:43 AM CDT Name Priority Associated Diagnoses Order Schedule SURGICAL PATHOLOGY Routine Oral cancer (HCC) ONCE for 1 Occurrences starting 07/17/2018 as of this encounter Procedures Procedure Name Priority Date/Time Associated Diagnosis Comments PATHOLOGY INTEROPERATIVE 08/08/2018 Results for this REPORT [...] Routine 07/19/2018 NON-BLEEDING PT 9:43 AM CDT CBC Routine 07/19/2018 Results for this 4:11 AM CDT procedure are in the results section. PHOSPHORUS Routine 07/19/2018 Results for this 4:11 [...] Routine 07/18/2018 NON-BLEEDING PT 8:09 AM CDT CBC Routine 07/18/2018 Results for this 4:00 AM CDT procedure are in the results section. PHOSPHORUS Routine 07/18/2018 Results for this 4:00 [...] results section. in this encounter Results * PATHOLOGY INTEROPERATIVE REPORT SCAN (08/08/2018 12:02 PM) Narrative Performed At Ordered by an unspecified provider. * ECG-SCAN (07/30/2018 5:10 PM) Narrative Performed At Ordered by an unspecified provider. * ECG-SCAN (07/25/2018 11:52 AM) Narrative Performed At Ordered by an unspecified provider. * TELEMETRY STRIPS-SCAN (07/25/2018 11:52 AM) Narrative Performed At Ordered by an unspecified provider. * PHOSPHORUS (07/24/2018 5:41 AM) Phosphorus 3.9Comment: NOTE NEW REFERENCE 2.0 - 4.5 MG/DL [facility] Specimen Blood Performing Organization Address City/[facility] Phone Number [facility] [address] [place] [address] * MAGNESIUM (07/24/2018 5:41 AM) Magnesium 1.8 1.6 - 2.6 mg/dL [facility] Specimen Blood Performing Organization Address [facility] Phone Number [facility] [address] [place] [address] * BASIC METABOLIC PANEL (07/24/2018 5:41 AM) Sodium 131 (L) 137 - 147 MMOL/L [facility] Potassium 4.4 3.5 - 5.1 MMOL/L [facility] Chloride 99 98 - 110 MMOL/L [facility] CO2 25 21 - 30 MMOL/L [facility] Anion Gap 7 3 - 12 [facility] Glucose 110 (H) 70 - 100 MG/DL [facility] Blood Urea Nitrogen 15 7 - 25 MG/DL [facility] Creatinine 0.51 0.4 - 1.00 MG/DL [facility] Calcium 8.6 8.5 - 10.6 MG/DL [facility] eGFR Non >60 >60 mL/min [facility] Comment: The eGFR is not validated for use in drug dosing adjustments.Continue to use estimated creatinine clearance per dosing reference text.Please contact the Clinical Pharmacist for questions. eGFR >60 >60 mL/min [facility] Comment: The eGFR is not validated for use in drug dosing adjustments.Continue to use estimated creatinine clearance per dosing reference text.Please contact the Clinical Pharmacist for questions. Specimen Blood Performing Organization Address City/[facility]/Zipcode Phone Number [facility] [address] [place] [address] * PROTIME INR (PT) (07/24/2018 5:41 AM) INR 1.1 0.8 - 1.2 [facility] Specimen Blood Performing Organization Address [facility] Phone Number [facility] [address] [place], [place] [phone] * PROTIME INR (PT) (07/23/2018 4:19 AM) INR 1.1 0.8 - 1.2 [facility] Specimen Blood Performing Organization Address [facility] Phone Number [facility] [address] [place] [address] * PROTIME INR (PT) (07/22/2018 5:19 AM) INR 1.0 0.8 - 1.2 [facility] Specimen Blood Performing Organization Address [facility] Phone Number [facility] [address] [place] [address] * PHOSPHORUS (07/22/2018 5:19 AM) Phosphorus 3.5Comment: NOTE NEW REFERENCE 2.0 - 4.5 MG/DL [facility] Specimen Blood Performing Organization Address [facility] Phone Number [facility] [address] [place] [address] * MAGNESIUM (07/22/2018 5:19 AM) Magnesium 2.0 1.6 - 2.6 mg/dL [facility] Specimen Blood Performing Organization Address [facility] Phone Number [facility] [address] [place] [address] * CBC (07/22/2018 5:19 AM) White Blood Cells 6.7 4.5 - 11.0 [...] [facility] Specimen Blood Performing Organization Address [facility] Phone Number [facility] [address] [place] [address] * BASIC METABOLIC PANEL (07/22/2018 5:19 AM) Sodium 134 (L) 137 - 147 MMOL/L [facility] Potassium 3.6 3.5 - 5.1 MMOL/L [facility] Chloride 99 98 - 110 MMOL/L [facility] CO2 27 21 - 30 MMOL/L [facility] Anion Gap 8 3 - 12 [facility] Glucose 107 (H) 70 - 100 MG/DL [facility] Blood Urea Nitrogen 12 7 - 25 MG/DL [facility] Creatinine 0.64 0.4 - 1.00 MG/DL [facility] [...] for questions. Specimen Blood Performing Organization Address [facility] Phone Number [facility] [address] [place] [address] * PROTIME INR (PT) (07/21/2018 11:29 AM) INR 1.0 0.8 - 1.2 [facility] Specimen Blood Performing Organization Address [facility] Phone Number [facility] [address] [place] [address] * PHOSPHORUS (07/21/2018 5:32 AM) Phosphorus 3.0Comment: NOTE NEW REFERENCE 2.0 - 4.5 MG/DL [facility] Specimen Blood Performing Organization Address [facility] Phone Number [facility] [address] [place] [address] * MAGNESIUM (07/21/2018 5:32 AM) Magnesium 1.8 1.6 - 2.6 mg/dL [facility] Specimen Blood Performing Organization Address [facility] Phone Number [facility] [address] [place] [phone] * BASIC METABOLIC PANEL (07/21/2018 5:32 AM) Sodium 135 (L) 137 - 147 MMOL/L [facility] Potassium 3.7 3.5 - 5.1 MMOL/L [facility] Chloride 104 98 - 110 MMOL/L [facility] CO2 26 21 - 30 MMOL/L [facility] Anion Gap 5 3 - 12 [facility] Glucose 115 (H) 70 - 100 MG/DL [facility] Blood Urea Nitrogen 14 7 - 25 MG/DL [facility] Creatinine 0.66 0.4 - 1.00 MG/DL [facility] Calcium 8.4 (L) 8.5 - 10.6 MG/DL [facility] MAIN LAB [...] for questions. Specimen Blood Performing Organization Address [facility] Cent[facility]ode Phone Number MAIN LAB [address] [phone] * CBC (07/21/2018 5:32 AM) White Blood Cells 7.3 4.5 - 11.0 K/UL [facility]IN [facility] RBC 2.74 (L) 4.0 - 5.0 M/UL [facility] Hemoglobin 8.8 (L) 12.0 - 15.0 GM/DL [facility] MAIN [facility] Hematocrit 25.4 (L) 36 - 45 % [facility] MCV 92.9 80 - 100 FL [facility]IN [facility] MCH 32.0 26 - 34 PG [facility]IN [facility] MCHC 34.4 32.0 - 36.0 G/DL [facility]IN [facility] RDW 17.0 (H) 11 - 15 % [facility] Platelet Count 187 150 - 400 K/UL [facility] MPV 7.2 7 - 11 FL [facility] MAIN [facility] Specimen Blood Performing Organization Address City/State/Zipcode Phone Number [facility] MAIN [facility] [address] [place] [address] * IR GASTROSTOMY (07/20/2018 2:06 PM) Impressions Performed At Impression: Gastrostomy feeding tube placement as described above. [facility] RAD RESULTS I, Agustin Kumar M.D., the attending interventional radiologist, performed the [...] needle and curled in the stomach.A 14 Armenian telescoping peel-away sheath was then placed over [...] and curled in the stomach. A 14 Armenian telescoping peel-away sheath was then placed over [...] Gastrostomy feeding tube placement as described above. IAgustin M.D., the attending interventional radiologist, performed the entire procedure, personally reviewed the images, and formulated the interpretations and opinions expressed in this report. @TT Finalized by Agustin Kumar M.D. on 07/20/2018 2:23 PM. Dictated by Agustin Kumar M.D. on 07/20/2018 2:17 PM. Performing Organization Address City/State/Zipcode Phone Number [facility] RESULTS * PHOSPHORUS (07/20/2018 4:06 AM) Phosphorus 1.7 (L)Comment: NOTE NEW 2.0 - 4.5 MG/DL MAIN LAB REFERENCE RANGES Specimen Blood Performing Organization Address City/[facility]/Zipcode Phone Number [facility] [address] [place] [address] * MAGNESIUM (07/20/2018 4:06 AM) Magnesium 2.0 1.6 - 2.6 mg/dL [facility] MAIN LAB Specimen Blood Performing Organization Address City/[facility]/Zipcode Phone Number MAIN LAB [address] [place] [address] * BASIC METABOLIC PANEL (07/20/2018 4:06 AM) Sodium 140 137 - 147 MMOL/L [facility] MAIN LAB Potassium 3.9 3.5 - 5.1 MMOL/L [facility] MAIN [facility] Chloride 109 98 - 110 MMOL/L [facility] MAIN [facility] CO2 25 21 - 30 MMOL/L [facility]IN [facility] Anion Gap 6 3 - 12 [facility] MAIN [facility] Glucose 122 (H) 70 - 100 MG/DL [facility] MAIN [facility] Blood Urea Nitrogen 21 7 - 25 MG/DL [facility]IN [facility] Creatinine 0.78 0.4 - 1.00 MG/DL [facility] MAIN [facility] Calcium 8.4 (L) 8.5 - 10.6 MG/DL [facility] MAIN LAB [...] for questions. Specimen Blood Performing Organization Address City/[facility]/Zipcode Phone Number MAIN LAB [address] [phone] * CBC (07/20/2018 4:06 AM) White Blood Cells 9.4 4.5 - 11.0 K/UL [facility] MAIN [facility] RBC 2.76 (L) 4.0 - 5.0 M/UL [facility] MAIN [facility] Hemoglobin 8.7 (L) 12.0 - 15.0 GM/DL [facility] MAIN LAB Hematocrit 25.7 (L) 36 - 45 % [facility] MAIN [facility] MCV 93.0 80 - 100 FL [facility] MAIN [facility] MCH 31.6 26 - 34 PG [facility] MAIN [facility] MCHC 34.0 32.0 - 36.0 G/DL [facility] MAIN [facility] RDW 16.6 (H) 11 - 15 % [facility] MAIN [facility] Platelet Count 151 150 - 400 K/UL [facility] MAIN [facility] MPV 7.7 7 - 11 FL [facility] MAIN LAB Specimen Blood Performing Organization Address [facility] Cent[facility]ode Phone Number [facility] MAIN [facility] [address] [place] [address] * CBC (07/19/2018 11:41 AM) White Blood Cells 10.3 4.5 - 11.0 K/UL [facility] MAIN [facility] RBC 2.83 (L) 4.0 - 5.0 M/UL [facility] MAIN [facility] Hemoglobin 9.0 (L) 12.0 - 15.0 GM/DL [facility] MAIN [facility] Hematocrit 26.4 (L) 36 - 45 % [facility] MAIN [facility] MCV 93.3 80 - 100 FL [facility] MAIN [facility] MCH 31.8 26 - 34 PG [facility] MAIN [facility] MCHC 34.1 32.0 - 36.0 G/DL [facility] MAIN [facility] RDW 16.2 (H) 11 - 15 % [facility] MAIN [facility] Platelet Count 163 150 - 400 K/UL [facility] MAIN [facility] MPV 7.4 7 - 11 FL [facility] MAIN [facility] Specimen Blood Performing Organization Address [facility] Centerconj Phone Number [facility] MAIN [facility] [address] [place] [address] * PHOSPHORUS (07/19/2018 4:11 AM) Phosphorus 2.1Comment: NOTE NEW REFERENCE 2.0 - 4.5 MG/DL [facility] MAIN LAB RANGES Specimen Blood Performing Organization Address [facility] Center[facility]j Phone Number MAIN LAB [address] [phone] * MAGNESIUM (07/19/2018 4:11 AM) Magnesium 2.1 1.6 - 2.6 mg/dL [facility] MAIN [facility] Specimen Blood Performing Organization Address [facility] Centercode Phone Number [facility] MAIN [facility] [address] [place] [address] * BASIC METABOLIC PANEL (07/19/2018 4:11 AM) Sodium 134 (L) 137 - 147 MMOL/L [facility] MAIN [facility] Potassium 4.0 3.5 - 5.1 MMOL/L [facility] MAIN [facility] Chloride 106 98 - 110 MMOL/L [facility] MAIN [facility] CO2 24 21 - 30 MMOL/L [facility] MAIN [facility] Anion Gap 4 3 - 12 [facility] MAIN [facility] Glucose 154 (H) 70 - 100 MG/DL [facility] MAIN [facility] Blood Urea Nitrogen 17 7 - 25 MG/DL [facility] MAIN [facility] Creatinine 0.93 0.4 - 1.00 MG/DL [facility] MAIN [facility] Calcium 8.6 8.5 - 10.6 MG/DL [facility] MAIN LAB eGFR Non 59 (L) >60 mL/min [facility] MAIN [facility] Comment: The [...] for questions. Specimen Blood Performing Organization Address City/[facility] Centercode Phone Number MAIN LAB [address] [place] [address] * CBC (07/19/2018 4:11 AM) White Blood Cells 9.5 4.5 - 11.0 K/UL [facility] MAIN [facility] RBC 2.30 (L) 4.0 - 5.0 M/UL [facility] MAIN [facility] Hemoglobin 7.4 (L) 12.0 - 15.0 GM/DL [facility] MAIN [facility] Hematocrit 21.5 (L) 36 - 45 % [facility] MAIN [facility] MCV 93.3 80 - 100 FL MAIN LAB MCH 32.2 26 - 34 PG MAIN LAB MCHC 34.5 32.0 - 36.0 G/DL MAIN LAB RDW 15.9 (H) 11 - 15 % MAIN LAB Platelet Count 143 (L) 150 - 400 K/UL MAIN LAB MPV 7.6 7 - 11 FL MAIN LAB Specimen Blood Performing Organization Address [facility]j Phone Number MAIN LAB [address] [place] [address] * PHOSPHORUS (07/18/2018 4:00 AM) Phosphorus 4.0Comment: NOTE NEW REFERENCE 2.0 - 4.5 MG/DL [facility] MAIN LAB RANGES Specimen Blood Performing Organization Address City/[facility] Cent[facility]ode Phone Number MAIN LAB [address] [place] [address] * MAGNESIUM (07/18/2018 4:00 AM) Magnesium 1.4 (L) 1.6 - 2.6 mg/dL [facility] MAIN [facility] Specimen Blood Performing Organization Address [facility] Centercode Phone Number MAIN LAB [address] [place] [address] * BASIC METABOLIC PANEL (07/18/2018 4:00 AM) Sodium 131 (L) 137 - 147 MMOL/L [facility] MAIN [facility] Potassium 3.9 3.5 - 5.1 MMOL/L [facility] MAIN [facility] Chloride 101 98 - 110 MMOL/L [facility] MAIN [facility] CO2 22 21 - 30 MMOL/L [facility] MAIN [facility] Anion Gap 8 3 - 12 [facility] MAIN [facility] Glucose 175 (H) 70 - 100 MG/DL [facility] MAIN [facility] Blood Urea Nitrogen 12 7 - 25 MG/DL [facility] MAIN [facility] Creatinine 0.82 0.4 - 1.00 MG/DL [facility] MAIN LAB Calcium 7.7 (L) 8.5 - 10.6 MG/DL [facility] MAIN LAB [...] for questions. Specimen Blood Performing Organization Address City/[facility]/Zipcode Phone Number [facility] [address] [place] [address] * CBC (07/18/2018 4:00 AM) White Blood Cells 8.7 4.5 - 11.0 K/UL [facility] MAIN [facility] RBC 2.62 (L) 4.0 - 5.0 M/UL [facility] MAIN [facility] Hemoglobin 8.1 (L) 12.0 - 15.0 GM/DL [facility] MAIN LAB Hematocrit 24.5 (L) 36 - 45 % [facility] MAIN [facility] MCV 93.6 80 - 100 FL [facility] MAIN LAB MCH 31.1 26 - 34 PG MAIN LAB MCHC 33.3 32.0 - 36.0 G/DL MAIN LAB RDW 15.5 (H) 11 - 15 % [facility] MAIN LAB Platelet Count 153 150 - 400 K/UL MAIN LAB MPV 7.6 7 - 11 FL MAIN LAB Specimen Blood Performing Organization Address City/[facility]/Zipcode Phone Number [facility] [address] [place] [address] * CBC (07/18/2018 12:10 AM) White Blood Cells 7.4 4.5 - 11.0 K/UL [facility] MAIN [facility] RBC 2.67 (L) 4.0 - 5.0 M/UL [facility] MAIN [facility] Hemoglobin 8.3 (L) 12.0 - 15.0 GM/DL [facility] MAIN [facility] Hematocrit 24.8 (L) 36 - 45 % [facility] MAIN [facility] MCV 92.8 80 - 100 FL [facility] MAIN [facility] MCH 31.1 26 - 34 PG [facility] MAIN [facility] MCHC 33.5 32.0 - 36.0 G/DL [facility] MAIN [facility] RDW 15.4 (H) 11 - 15 % [facility] MAIN LAB Platelet Count 154 150 - 400 K/UL [facility] MAIN [facility] MPV 7.2 7 - 11 FL [facility] MAIN LAB Specimen Blood Performing Organization Address City/State/Zipcode Phone Number [facility] MAIN LAB [address] [place] [address] * ABDOMEN AP ONLY (07/17/2018 11:42 PM) [...] on 07/18/2018 8:42 AM. Performing Organization Address City/[facility]/[employer] Phone Number RAD RESULTS * POTASSIUM, BG (07/17/2018 7:09 PM) Potassium 3.8 3.5 - 5.1 MMOL/L [facility] MAIN LAB Specimen Blood Performing Organization Address [facility]/[employer] Phone Number MAIN LAB [address] [place] [address] * SODIUM,BG (07/17/2018 7:09 PM) Sodium 133 (L) 137 - 147 MMOL/L [facility] MAIN [facility] Specimen Blood Performing Organization Address [facility]/[employer] Phone Number MAIN LAB [address] [place] [address] * IONIZED CALCIUM,BG (07/17/2018 7:09 PM) Ionized Calcium 1.08 1.0 - 1.3 MMOL/L [facility] MAIN [facility] Specimen Blood Performing Organization Address [facility]/[employer] Phone Number MAIN LAB [address] [place] [address] * GLUCOSE,BG (07/17/2018 7:09 PM) Glucose 154 (H) 70 - 100 MG/DL MAIN LAB Specimen Blood Performing Organization Address [facility]/[employer] Phone Number MAIN LAB [address] [place] [address] * BLOOD GASES, ARTERIAL (07/17/2018 7:09 PM) pH-Arterial 7.43 7.35 - 7.45 MAIN LAB pCO2-Arterial 32 (L) 35 - 45 MMHG [facility] MAIN LAB pO2-Arterial 172 (H) 80 - 100 MMHG [facility] MAIN LAB Base Deficit-Arterial 2.4 MMOL/L MAIN LAB O2 Sat-Arterial 99.1 (H) 95 - 99 % MAIN LAB Xruzhxoyehr-URR-Upm 22.4 21 - 28 MMOL/L MAIN LAB Specimen Blood, arterial - Blood Performing Organization Address City/[facility] Cent[facility]ode Phone Number MAIN LAB [address] [place] [address] * HEMOGLOBIN & HEMATOCRIT, BG (07/17/2018 7:09 PM) Hemoglobin BG 9.0 (L) 12.0 - 15.0 GM/DL MAIN LAB Hematocrit BG 27.8 (L) 36 - 45 % MAIN LAB Specimen Blood Performing Organization Address City/[facility] Centercode Phone Number MAIN LAB [address] [place] [address] * POTASSIUM, BG (07/17/2018 3:58 PM) Potassium 3.7 3.5 - 5.1 MMOL/L MAIN LAB Specimen Blood Performing Organization Address City/[facility]erc[facility] Phone Number MAIN LAB [address] [place] [address] * SODIUM,BG (07/17/2018 3:58 PM) Sodium 131 (L) 137 - 147 MMOL/L MAIN LAB Specimen Blood Performing Organization Address City/[facility]erc[facility] Phone Number MAIN LAB [address] [place] [address] * IONIZED CALCIUM,BG (07/17/2018 3:58 PM) Ionized Calcium 1.09 1.0 - 1.3 MMOL/L MAIN LAB Specimen Blood Performing Organization Address [facility]ercode Phone Number MAIN LAB [address] [phone] * GLUCOSE,BG (07/17/2018 3:58 PM) Glucose 160 (H) 70 - 100 MG/DL MAIN LAB Specimen Blood Performing Organization Address [facility] Centercode Phone Number MAIN LAB [address] [place] [address] * BLOOD GASES, ARTERIAL (07/17/2018 3:58 PM) pH-Arterial 7.43 7.35 - 7.45 MAIN LAB pCO2-Arterial 32 (L) 35 - 45 MMHG [facility] MAIN [facility] pO2-Arterial 180 (H) 80 - 100 MMHG MAIN LAB Base Deficit-Arterial 2.4 MMOL/L [facility] O2 Sat-Arterial 99.4 (H) 95 - 99 % [facility] Xphdklhlllj-FKR-Fmp 22.4 21 - 28 MMOL/L [facility] Specimen Blood, arterial - Blood Performing Organization Address City/[facility] Phone Number [facility] [address] [place] [address] * HEMOGLOBIN & HEMATOCRIT, BG (07/17/2018 3:58 PM) Hemoglobin BG 9.1 (L) 12.0 - 15.0 GM/DL [facility] Hematocrit BG 28.2 (L) 36 - 45 % [facility] Specimen Blood Performing Organization Address City/[facility] Phone Number [facility] [address] [place] [address] * SURGICAL PATHOLOGY (07/17/2018 9:13 AM) PATHOLOGY REPORT [facility] [email or web address] Department of Pathology and Laboratory Medicine [address] [place] [address] Surgical Pathology Office:[phone] :[phone] SURGICAL PATHOLOGY REPORT NAME: YEIMY LIMA SURG PATH #: [id number] MR #: [id number] SPECIMEN CLASS: [facility] BILLING #: [id number] ALT ID #:LOCATION: [facility] DATE OF PROCEDURE: 07/17/2018 AGE:73 SEX: F DATE RECEIVED: 07/17/2018 : 1945TIME RECEIVED:09:13 PHYSICIAN: J LUIS FLORES MD DATE OF REPORT: 07/22/2018 COPY TO: ABDI ALEXANDRE DATE OF PRINTIN07/22/2018 ############################## ############################## ############ [...] Pathologic Stage Classification (pTNM, AJCC 8th Edition): [id number]/ Note: Reporting of pT, pN, and (when [...] status and/or prior pathology. Pursuant to the [employer]oke Jumper Supervisor Program at the [facility] Pathology Department, selected slides from this case [...] cassette A1FS for frozen and permanent sectioning. ([facility]) B. Received fresh labeled with the patient's name and "posterior dorsal tongue MM" is a 3.4 x 0.8 x 0.5 cm irregular piece of potts-pink tissue. The specimen is bisected and is entirely submitted in cassette B1FS for frozen and permanent sectioning. ([facility]) C. Received fresh labeled with the patient's name and "posterior floor mouth MM" is a 1.3 x 0.9 x 0.5 cm irregular piece of potts-pink tissue. The specimen is entirely submitted in cassette C1FS for frozen and permanent sectioning. ([facility]) D. Received fresh labeled with the patient's name and "anterior floor mouth MM" is a 0.6 x 0.4 x 0.3 cm irregular piece of potts-pink tissue. The specimen is entirely submitted in cassette D1FS for frozen and permanent sectioning. ([facility]) E. Received fresh labeled with the patient's name and "ventral tongue MM" is a 2.5 x 0.5 x 0.3 cm aggregate of potts-pink tissue. The specimen is entirely submitted in cassette E1FS for frozen and permanent sectioning. ([facility]) F. Received fresh labeled with the patient's name and "deep margin" is a 0.5 x 0.5 x 0.4 cm irregular piece of potts-pink tissue. The specimen is entirely submitted in cassette F1FS for frozen and permanent sectioning. ([facility]) G. Received fresh, labeled with the patient's [...] to 2.5 x 1.2 x 0.9 cm. customer development representative sections of the specimen are submitted as follows: H1-H2 Grossly consistent submandibular gland. H3 One possible lymph node, submitted whole. H4 Two possible lymph nodes, bisected (one possible lymph node differentially inked black). H5-H6 One possible lymph node, serially sectioned. ([facility]) I. Received fresh labeled with the patient's [...] of fibroadipose tissue and possible lymph nodes. ([facility]) J. Received fresh labeled with the patient's [...] to 1.3 x 1.1 x 0.7 cm. Fiberglass Boat Builder sections of the specimen are submitted as follows: J1-J2 Grossly consistent submandibular gland. J3 Three possible lymph nodes, submitted whole. J4 One possible lymph node, bisected. J5 Fibroadipose tissue and possible lymph nodes submitted entirely. ([facility]) K. Received fresh labeled with the patient's [...] of fibroadipose tissue and possible lymph nodes. ([facility]) [facility]/07/17/2018 Intraoperative Consultation: A1FS, squamous mucosa, "anterior dorsal [...] section performed at the [facility], [address] [place] [address], [place] [address]. Alyssa Palencia MD Performing Organization Address [facility] Phone Number [facility] LAB RESULTS * PTT (APTT) (07/17/2018 8:08 AM) APTT 22.6Comment: NOTE NEW 20.0 - 36.0 SEC [facility] MAIN LAB REFERENCE RANGES Specimen Blood Performing Organization Address [facility] Phone Number [facility] MAIN LAB [address] [place] [address] * PROTIME INR (PT) (07/17/2018 8:08 AM) INR 1.1 0.8 - 1.2 MAIN LAB Specimen Blood Performing Organization Address [facility] Phone Number MAIN LAB [address] [place] [address] * CBC AND DIFF (07/17/2018 8:08 AM) White Blood Cells 5.5 4.5 - 11.0 K/UL [facility] MAIN [facility] RBC 3.79 (L) 4.0 - 5.0 M/UL MAIN LAB Hemoglobin 11.8 (L) 12.0 - 15.0 GM/DL [facility] MAIN LAB Hematocrit 35.2 (L) 36 - 45 % [facility] MAIN LAB MCV 92.8 80 - 100 FL MAIN LAB MCH 31.1 26 - 34 PG MAIN LAB MCHC 33.5 32.0 - 36.0 G/DL MAIN LAB RDW 15.6 (H) 11 - 15 % [facility] MAIN LAB Platelet Count 163 150 - 400 K/UL [facility] MAIN LAB MPV 7.5 7 - 11 FL [facility] MAIN LAB Neutrophils 69 41 - 77 % [facility] MAIN LAB Lymphocytes 20 (L) 24 - 44 % MAIN LAB Monocytes 7 4 - 12 % MAIN LAB Eosinophils 3 0 - 5 [...] MAIN LAB Specimen Blood Performing Organization Address [facility] Phone Number [facility] MAIN [facility] [address] [place] [address] * BASIC METABOLIC PANEL (07/17/2018 7:31 AM) Sodium 129 (L) 137 - 147 MMOL/L [facility] MAIN [facility] Potassium 4.1 3.5 - 5.1 MMOL/L [facility] MAIN [facility] Chloride 96 (L) 98 - 110 MMOL/L [facility] MAIN [facility] CO2 25 21 - 30 MMOL/L [facility]IN [facility] Anion Gap 8 3 - 12 [facility] MAIN LAB Glucose 113 (H) 70 - 100 MG/DL [facility] MAIN LAB Blood Urea Nitrogen 13 7 - 25 MG/DL [facility] MAIN [facility] Creatinine 0.66 0.4 - 1.00 MG/DL [facility] MAIN [facility] Calcium 9.7 8.5 - 10.6 MG/DL [facility] MAIN LAB [...] for questions. Specimen Blood Performing Organization Address City/State/Zipcode Phone Number MAIN LAB [address] [place] [address] * TYPE & CROSSMATCH (07/17/2018 7:31 AM) Units Ordered 3 [facility] MAIN LAB Crossmatch Expires 07/20/2018 [facility] MAIN LAB Record Check FOUND [facility] MAIN LAB ABO/RH(D) O POS [facility] MAIN LAB Antibody Screen NEG MAIN LAB Electronic Crossmatch YES [facility] MAIN LAB Unit Number [id number] MAIN LAB Blood Component Type RBC,ADSOL,LEUKO REDUCED MAIN LAB Unit Division 0 MAIN LAB Status OF Unit REL FROM ALLOC MAIN LAB Transfusion Status OK TO TRANSFUSE MAIN LAB Crossmatch Result COMPATIBLE,ELECTRONIC MAIN LAB Unit Number [id number] MAIN LAB Blood Component Type RBC,ADSOL,LEUKO REDUCED MAIN LAB Unit Division 0 [facility] MAIN LAB Status OF Unit REL FROM ALLOC MAIN LAB Transfusion Status OK TO TRANSFUSE MAIN LAB Crossmatch Result COMPATIBLE,ELECTRONIC MAIN LAB Unit Number [id number] MAIN LAB Blood Component Type RBC,ADSOL,LEUKO REDUCED [facility] MAIN [facility] Unit Division 0 [facility] MAIN LAB Status OF Unit TRANSFUSED [facility] MAIN LAB Transfusion Status OK TO TRANSFUSE [facility] MAIN LAB Crossmatch Result COMPATIBLE,ELECTRONIC [facility] MAIN LAB Unit Number [id number] [facility] MAIN LAB Blood Component Type RBC,ADSOL,LEUKO REDUCED,2ND [facility] MAIN LAB CONT. Unit Division 0 [facility] MAIN LAB Status OF Unit REL FROM ALLOC [facility] MAIN LAB Transfusion Status OK TO TRANSFUSE [facility] MAIN LAB Crossmatch Result COMPATIBLE,ELECTRONIC MAIN LAB Unit Number [id number] [facility] MAIN LAB Blood Component Type RBC,ADSOL,LEUKO REDUCED,2ND [facility] MAIN LAB CONT. Unit Division 0 [facility] MAIN LAB Status OF Unit REL FROM ALLOC [facility] MAIN LAB Transfusion Status OK TO TRANSFUSE [facility] MAIN LAB Crossmatch Result COMPATIBLE,ELECTRONIC MAIN LAB Unit Number [id number] [facility] MAIN LAB Blood Component Type RBC,ADSOL,LEUKO REDUCED [facility] MAIN LAB Unit Division 0 [facility] MAIN LAB Status OF Unit TRANSFUSED [facility] MAIN LAB Transfusion Status OK TO TRANSFUSE MAIN LAB Crossmatch Result COMPATIBLE,ELECTRONIC MAIN LAB Specimen Blood Performing Organization Address City/State/[facility] Phone Number [facility] [address] [place] [address] in this encounter Visit Diagnoses Diagnosis 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, unspecified site Atrial fibrillation, persistent (HCC) Atrial fibrillation 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, unspecified site Squamous cell carcinoma Other malignant neoplasm without specification of site Atrial fibrillation, unspecified type (HCC) Hypertension, unspecified type Anemia associated with acute blood loss Acute posthemorrhagic anemia Dysphagia, unspecified type Acid reflux Esophageal reflux Admitting Diagnoses Diagnosis 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 Given 07/24/2018 650 mg 00:55 CDT Given 07/24/2018 650 mg 08:45 CDT albuterol 0.5% (PROVENTIL; VENTOLIN) nebulizer solution 2.5 mg 2.5 mg, Inhalation, RT NEEDED, Starting 07/21/18 at 0149, Until Mon07/24/18 at 1440, RT PROTOCOL, When administered by RT, will be per RT policy. ampicillin/sulbactam (UNASYN) 3 g in Given - New 07/20/2018 3 g 100 mL/ hr sodium chloride 0.9% (NS) 100 mL IVPB Bag 17:35 CDT (MB+) 3 g, Intravenous, 100 mL, Administer over 60 Minutes, EVERY 6 HOURS, First dose on Mon07/17/18 at 2330, Until Discontinued Given - New Bag 07/20/2018 3 g 100 mL/hr 23:35 CDT Given - New Bag 07/21/2018 3 g 100 mL/hr 05:39 CDT antiseptic mucus solvent 120 mL solution Given 07/23/2018 2 sprays 2 spray 17:13 CDT 2 spray, Tracheal Tube, EVERY 2 HOURS WHILE AWAKE, First dose on Mon07/18/18 at 0700, Until Discontinued, Dilute 1:1 with NS prior to administration. Given 07/23/2018 2 sprays 21:27 CDT Given 07/24/2018 2 sprays 08:47 CDT ascorbic acid (VITAMIN C) tablet 500 mg Given 07/22/2018 500 mg 500 mg, Per NG tube, DAILY, 30 doses, 08:48 CDT First dose on Mon07/18/18 at 1700, Last dose on Mon08/16/18 at 0900, Crush, mix with water and give per NGT. Given 07/23/2018 500 mg 09:00 CDT Given 07/24/2018 500 mg 08:46 CDT aspirin EC tablet 81 mg Given 07/22/2018 81 mg 81 mg, Oral, DAILY, First dose on Mon 08:48 CDT 07/18/18 at 1730, Until Discontinued Given 07/23/2018 81 mg 09:00 CDT Given 07/24/2018 81 mg 08:45 CDT atenolol (TENORMIN) tablet 50 mg Given 07/22/2018 50 mg 50 mg, Per NG tube, DAILY, First dose on 08:48 CDT Mon07/18/18 at 0900, Until Discontinued, Hold for heart rate <60 bpm Given 07/23/2018 50 mg 08:59 CDT Given 07/24/2018 50 mg 08:46 CDT barium sulfate 40 % (VARIBAR THIN Given 07/19/2018 120 mL LIQUID) oral powder for suspension 120 20:00 CDT mL 120 mL, Per NG tube, ONCE, 1 dose, [facility] 07/19/18 at 1015, To obtain medication: Call IR at [phone] 7am -5pm Mon-Fri, if after hours call Radiology at [phone]. To be administered 12 hours before Interventional Radiology procedure. Please verify scheduled date & time before administration. Give entire 300 mL of suspension. Mixing Instructions: 1. Gently shake the barium [...] thoroughly. Product is now ready for use. calcium carbonate/vitamin D-3 Given 07/22/2018 1 tablet (OSCAL-500+D) 1250 mg/200 unit tablet 1 08:50 CDT tablet 1 tablet, Per NG tube, DAILY, First dose on Mon07/18/18 at 0900, Until Discontinued Given 07/23/2018 1 tablet 09:00 CDT Given 07/24/2018 1 tablet 08:46 CDT diphenoxylate/atropine (LOMOTIL) 2.5/0.025 mg tablet 1 tablet 1 tablet, Per NG tube, FOUR TIMES DAILY PRN, Starting Mon07/18/18 at 0916, Until Mon07/24/18 at 1440, Diarrhea, Note: Max 8 tabs/day (20 mg diphenoxylate) docusate (COLACE) oral solution 100 mg Given 07/21/2018 100 mg 100 mg, Per NG tube, TWICE DAILY, First 08:36 CDT dose on Mon07/17/18 at 2330, Until Discontinued, Hold for loose stools Given 07/22/2018 100 mg 21:10 CDT Given 07/23/2018 100 mg 09:04 CDT fentaNYL citrate PF (SUBLIMAZE) Given 07/20/2018 50 mcg injection 50 mcg 13:46 CDT 50 mcg, Intravenous, ONCE, 1 dose, Mon07/20/18 at 1215 folic acid (FOLVITE) tablet 1 mg Given 07/22/2018 1 mg 1 mg, Oral, DAILY, First dose on Sat 08:48 CDT 07/21/18 at 0900, Until Discontinued, Start after banana bag completed Given 07/23/2018 1 mg 09:00 CDT Given 07/24/2018 1 mg 08:46 CDT heparin (porcine) PF syringe 5,000 Units Given 07/19/2018 5,000 Units Abdominal 5,000 Units, Subcutaneous, EVERY 8 05:26 CDT Tissue HOURS, 6 doses, First dose on Mon07/18/18 at 0600, Last dose on Mon07/19/18 at 2200, NOTE: This is a HIGH ALERT Medication. Given 07/19/2018 5,000 Units Abdomen:LUQ 15:01 CDT Given 07/19/2018 5,000 Units Abdominal 22:38 CDT Tissue heparin (porcine) PF syringe 5,000 Units Given 07/23/2018 5,000 Units Abdomen:RLQ 5,000 Units, Subcutaneous, EVERY 8 14:05 CDT HOURS, First dose on 07/21/18 at 1400, Until Discontinued, NOTE: This is a HIGH ALERT Medication. Given 07/23/2018 5,000 Units Abdominal 22:23 CDT Tissue Given 07/24/2018 5,000 Units Abdominal 06:03 CDT Tissue iopamidol 300 (ISOVUE-300) injection 20 Given 07/20/2018 20 mL mL 14:08 CDT 20 mL, SEE ADMIN INSTRUCTIONS, ONCE, 1 dose, Mon07/20/18 at 1415, Gastric NOTE: This is a HIGH ALERT Medication. ipratropium bromide (ATROVENT) 0.02 % nebulizer solution 0.5 mg 0.5 mg, Inhalation, RT NEEDED, Starting 07/21/18 at 0149, Until Mon07/24/18 at 1440, RT PROTOCOL, When administered by RT, will be per RT policy. lactated ringers infusion Given - New 07/17/2018 1,000 mL 20 mL/hr 1,000 mL, 1,000 mL, Intravenous, at 20 Bag 06:14 CDT mL/hr, CONTINUOUS, Starting Mon07/17/18 at 0600, Until Mon07/17/18 at 2223, Pre-Op Given - New Bag 07/17/2018 17:39 CDT lisinopril (PRINIVIL; ZESTRIL) tablet 10 Given 07/22/2018 10 mg mg 08:49 CDT 10 mg, Per NG tube, DAILY, First dose on Mon07/18/18 at 0900, Until Discontinued Given 07/23/2018 10 mg 08:59 CDT Given 07/24/2018 10 mg 08:46 CDT loratadine (CLARITIN) tablet 10 mg Given 07/22/2018 10 mg 10 mg, Per NG tube, EVERY MORNING, First 08:48 CDT dose on Mon07/18/18 at 0800, Until Discontinued Given 07/23/2018 10 mg 09:00 CDT Given 07/24/2018 10 mg 08:45 CDT LORazepam (ATIVAN) injection 0.5 mg Given 07/20/2018 0.5 mg 0.5 mg, Intravenous, ONCE, 1 dose, Mon 13:04 CDT 07/20/18 at 1300 magnesium sulfate 1 g/D5W 100 mL IVPB Given - New 07/18/2018 1 g 100 mL/hr 1 g, Intravenous, 100 mL, Administer Bag 06:21 CDT over 1 Hours, ONCE, 1 dose, Mon07/18/18 at 0600, Each 1gm delivers 8.1 mEq Magnesium. magnesium sulfate 1 g/D5W 100 mL IVPB Given - New 07/21/2018 1 g 100 mL/hr 1 g, Intravenous, 100 mL, Administer Bag 07:40 CDT over 1 Hours, ONCE, 1 dose, 07/21/18 at 0730, Each 1gm delivers 8.1 mEq Magnsium. magnesium sulfate 1 g/D5W 100 mL IVPB Given - New 07/24/2018 1 g 100 mL/hr 1 g, Intravenous, 100 mL, Administer Bag 09:57 CDT over 1 Hours, ONCE, 1 dose, Tu07/24/18 at 0945, Each 1gm delivers 8.1 mEq Magnesium. midazolam (VERSED) injection 1-2 mg Given 07/20/2018 1 mg 1-2 mg, Intravenous, ONCE, 1 dose, Mon 13:46 CDT 07/20/18 at 1215 midazolam (VERSED) injection Given 07/20/2018 1 mg INTRA-PROCEDURE MED, Starting Mon 13:55 CDT 07/20/18 at 1356, Until Discontinued morphine injection syringe 1-4 mg Given 07/18/2018 1 mg 1-4 mg, Intravenous, EVERY 2 HOURS PRN, 06:09 CDT Starting 07/17/18 at 2303, Until 07/24/18 at 1440, Pain Injectable, - Use only in case of pain not controlled by oral pain medication or if patient is NPO status. Given 07/18/2018 1 mg 11:39 CDT Given 07/19/2018 1 mg 02:16 CDT oxyCODONE (ROXICODONE) oral solution Given 07/20/2018 10 mg 5-15 mg 04:18 CDT 5-15 mg, Per NG tube, EVERY 4 HOURS PRN, Starting 07/17/18 at 2303, Until 07/24/18 at 1440, Pain PO Given 07/21/2018 10 mg 02:17 CDT Given 07/22/2018 5 mg 13:03 CDT pancrelipase 20,000 Units/ sodium Given 07/22/2018 1 capsule bicarbonate 650 mg(#) (KU CLOG 11:00 CDT DESTROYER) for occluded feeding tube cap 1 capsule 1 capsule, Feeding Tube, NEEDED (ARTISTS' MODEL FROM RX), Starting Rayna 07/19/18 at 0701, Until 07/24/18 at 1440, Other..., Occluded Feeding Tube, 1. Open one KU CLOG DESTROYER CAPSULE (pancrelipase 20,000 units/ sodium bicarbonate 650 mg) and pour contents into mortar cup. 2. Dissolve in 5 - 10 ml sterile water. This will take ~ 1-2 minutes, with stirring required. Some sediment will be present (likely from capsule ingredients). 3. Once dissolved, let solution sit for 1-2 minutes, allowing sediment to fall to bottom of mortar cup. 4. Draw enzyme/bicarbonate solution into oral syringe (avoid sediment as best possible). 5. Instill enzyme solution under light pressure, and use a light "back and forth" motion with plunger to help dislodge the clog. 6. Clamp the tube for 5-15 minutes, and then try to aspirate or flush with warm sterile water. May repeat x 1. Notify physician if tube remains occluded following administration. Given 07/23/2018 1 capsule 09:13 CDT pantoprazole(#) (PROTONIX) suspension 80 Given 07/22/2018 80 mg mg 08:54 CDT 80 mg, Per NG tube, DAILY, First dose on Mon07/18/18 at 0900, Until Discontinued Given 07/23/2018 80 mg 09:00 CDT Given 07/24/2018 80 mg 08:52 CDT polyethylene glycol 3350 (MIRALAX) packet 17 g 17 g (1 packet), Per NG tube, DAILY, First dose on Mon07/23/18 at 0900, Until Discontinued, 8.5 GRAMS=0.5 PACKET 17 GRAMS=1 PACKET 34 GRAMS=2 PACKETS potassium chloride oral solution 20 mEq Given 07/18/2018 20 mEq 20 mEq, Per NG tube, ONCE, 1 dose, Mon 06:20 CDT 07/18/18 at 0600 potassium chloride oral solution 60 mEq Given 07/22/2018 60 mEq 60 mEq, Per NG tube, ONCE, 1 dose, Sun 08:47 CDT 07/22/18 at 0715 potassium phosphate (K-PHOS ORIGINAL) Given 07/20/2018 2 tablets dispersable tablet 2 tablet 09:22 CDT 2 tablet, Per NG tube, TWICE DAILY, 2 doses, First dose on Mon07/20/18 at 0900, Last dose on Mon07/20/18 at 2100, DO NOT SWALLOW TABLET DISSOLVE IN WATER PRIOR TO ADMINISTRATION - The tablets are administered by dissolving two tablets in 6-8 ounces of water. - For best results, soak tablets in water for two to five minutes, or more if necessary, and stir. - If any tablet particles remain undissolved, they may be crushed and stirred vigorously to speed dissolution. Each tablet delivers 114 mg Phosphorus (3.6 mMol) and 3.7 mEq Potassium. potassium phosphate (K-PHOS ORIGINAL) Given 07/21/2018 2 tablets dispersable tablet 2 tablet 10:21 CDT 2 tablet, Per NG tube, ONCE, 1 dose, 07/21/18 at 0845, DO NOT SWALLOW TABLET DISSOLVE IN WATER PRIOR TO ADMINISTRATION - The tablets are administered by dissolving two tablets in 6-8 ounces of water. - For best results, soak tablets in water for two to five minutes, or more if necessary, and stir. - If any tablet particles remain undissolved, they may be crushed and stirred vigorously to speed dissolution. Each tablet delivers 114 mg Phosphorus (3.6 mMol) and 3.7 mEq Potassium. simvastatin (ZOCOR) tablet 40 mg Given 07/21/2018 40 mg 40 mg, Per NG tube, AT BEDTIME DAILY, 20:07 CDT First dose on Mon07/17/18 at 2330, Until Discontinued, NURSING: Please educate patient and document: Avoid taking grapefruit juice. Given 07/22/2018 40 mg 21:06 CDT Given 07/23/2018 40 mg 20:44 CDT sodium chloride 0.9 % infusion Given - New 07/18/2018 500 mL 999 mL/ hr 500 mL, 500 mL, Intravenous, at 999 Bag 00:18 CDT mL/hr, BOLUS, 1 dose, Mon07/18/18 at 0015 sodium chloride 0.9 % infusion Given - 07/18/2018 500 mL 999 mL/ hr 500 mL, 500 mL, Intravenous, at 999 Bag 00:41 CDT mL/hr, BOLUS, 1 dose, Mon07/18/18 at 0045 sodium chloride 0.9 % infusion Given - New 07/20/2018 100 mL/hr 1,000 mL, Intravenous, at 100 mL/hr, Bag 00:00 CDT CONTINUOUS, Starting Mon07/20/18 at 0000, Until Mon07/21/18 at 1429 Given - New Bag 07/20/2018 100 mL/hr 23:38 CDT sodium chloride 0.9% (NS) 1,000 mL with Given 07/18/2018 100 mL/hr multivitamin, adult 10 mL, folic acid 1 12:27 CDT mg, thiamine (VITAMIN B-1) 100 mg IV infusion 1,001.2 mL, Intravenous, at 100 mL/hr, DAILY, 3 doses, First dose on Mon07/18/18 at 1200, Last dose on Mon07/20/18 at 0900, Followed by thiamine PO and Folic Acid PO Banana Bag ([facility]) Given 07/19/2018 100 mL/hr 15:50 CDT Given 07/20/2018 100 mL/hr 09:24 CDT thiamine mononitrate tablet 100 mg Given 07/22/2018 100 mg 100 mg, Oral, DAILY, First dose on Sat 08:49 CDT 07/21/18 at 0900, Until Discontinued Given 07/23/2018 100 mg 09:00 CDT Given 07/24/2018 100 mg 08:46 CDT vitamin A & D topical ointment Given 07/23/2018 60 g Topical, TWICE DAILY, First dose on Mon 09:02 CDT 07/20/18 at 1545, Until Discontinued, Apply to right mid buttock pressure ulcer Given 07/23/2018 60 g 21:10 CDT Given by Patient/Family 07/24/2018 09:29 CDT vitamin A & D topical ointment Topical, NEEDED, Starting Mon07/20/18 at 1641, Until Mon07/24/18 at 1440, PRN to protect skin from moisture, Apply to right buttock pressure ulcer warfarin (COUMADIN) tablet 5 mg Given 07/21/2018 5 mg 5 mg, Per G Tube, AT BEDTIME DAILY, 20:06 CDT First dose on 07/21/18 at 2100, Until Discontinued, NURSING: Provide patient with warfarin education leaflet and video. Do not give with cranberry juice. NOTE: This is a HIGH ALERT Medication. Given 07/22/2018 5 mg 21:06 CDT warfarin (COUMADIN) tablet 5 mg 5 mg, Oral, TWO TIMES WEEKLY (Once per day on Mon), First dose on Mon07/25/18 at 2100, Until Discontinued, NURSING: Provide patient with warfarin education leaflet and video. Do not give with cranberry juice. NOTE: This is a HIGH ALERT Medication. warfarin (COUMADIN) tablet 7.5 mg Given 07/23/2018 7.5 mg 7.5 mg, Oral, FIVE TIMES WEEKLY (Once 20:43 CDT per day on Mon Sat), First dose on Mon07/23/18 at 2100, Until Discontinued, NURSING: Provide patient with warfarin education leaflet and video. Do not give with cranberry juice. NOTE: This is a HIGH ALERT Medication. WATER FOR INJECTION, STERILE IJ SOLN Given 07/22/2018 20 mL (Cabinet Override) 11:02 CDT NOW, 1 dose, 07/22/18 at 1100, Created by cabinet override zinc sulfate capsule 220 mg Given 07/22/2018 220 mg 220 mg, Per NG tube, DAILY, 14 doses, 08:48 CDT First dose on Mon07/18/18 at 1700, Last dose on Mon07/31/18 at 0900, Each cap delivers 50mg elemental zinc. Open capsule, dissolve in water and give via NGT. Given 07/23/2018 220 mg 09:00 CDT Given 07/24/2018 220 mg 08:46 CDT in this encounter
--- OUTSIDE RECORDS SUMMARY | 2018-08-20 08:36 | XMS REPORT | Encounter Summary ---
Author Author [facility] Organization [facility] Address Unknown Phone Unavailable Care Team Providers Care Tobacco Sorter Name Role Phone Hyacinth Arias DO PCP Reason for Visit * Auth/Cert Status Reason Specialty Diagnoses / Referred By Referred To Procedures Contact Contact Diagnoses Oral cancer (HCC) Oral cancer (HCC) [C06.9] P rocedures ME CERVICAL LYMPHADEC MODIFIED RADICAL NECK DSJ ME GLOSSECTOMY HEMIGLOSSECTOMY ME FREE FASCIAL FLAP W/MICROVASCULAR ANASTOMOSIS CERVICAL LYMPHADENECTOMY GLOSSECTOMY/ HEMIGLOSSECTOMY TISSUE TRANSFER FREE FASCIAL FLAP WITH MICROVASCULAR ANASTOMOSIS Encounter Details Date Type Department Care Team Description 07/18/2018 Surgery CA Operating Room Abdi Alexandre MD EXPLORATION POSTOPERATIVE [address] [place] [address] [place] [address] [phone] Social History Tobacco Use Types Packs/Day Years [...] status and/or prior pathology. Pursuant to the Industry Analyst Program at the [facility] Pathology Department, selected slides from this case [...] or concerns regarding your hospital stay. Call [phone] Discharging attending physician: ABDI ALEXANDRE [[id number]] Tube Feeding 1 carton (250 mL) Isosource [...] hours and as needed to minimize secretions. [place] alkalol to the stoma every two hours [...] Other resources on tracheostomy care: Go to [email or web address] website. Click on "Living with a Ventilator" [...] sooner or change your appointment please call [phone] M-F 8am-430 pm. If you have any questions not during office hours please call [phone] and ask for the ENT Resident storage management consultant. Home Health to draw INR on 07/26 [...] warfarin (COUMADIN) 5 mg tablet 5mg on Mon and Fri 7.5mg on Sun, Mon, Tu, Thur, Sat PRESCRIPTION TYPE: Historical Med The following medications were removed from your list. This list includes medications discontinued this stay and those removed from your prior med list in our system HYDROcodone/acetaminophen (NORCO) 5/325 mg tablet Scheduled appointments: Jul 31, 2018 10:00 AM CDT Post - Op with Adithya Cook PA-C [facility] - ENT (P ENT) [facility] Level [address] [place] [phone] Pending items needing follow up: Follow up ENT clinic Signed: Yazmin Ryan APRN-BRADLEY 07/29/2018 cc: Primary Care Physician: Hyacinth Arias Verified Referring physicians: Arnoldo Olivares MD Additional provider(s): in this encounter Discharge Instructions * Discharge Instr - Case Management - Nalini Green - 07/23/2018 4:44 PM CDT Your home health agency is: [facility] P: [phone] F: [phone] and INR to be drawn by agency on and reported to [facility] Student Financial Aid Manager Dr Salvador Zamarripa P: [phone] F: [phone]. Durable Medical Equipment: portable suction to be provided by [facility] (delivered to bedside prior to discharge) and home delivery of heated humidification and PEG tube feeds, (delivered to the home, same day as discharge) P: [phone] F: [phone] Pt verbalized understanding that medical appointments cannot [...] WHEN TO CALL THE DOCTOR: (Please call 911 for severe symptoms) You have bleeding from [...] for problems or concerns related to the procedure,[phone] for Monday-Monday 7-5. After-hours and weekends, please [phone] and ask for the Interventional Automated Access Systems Technician on-call. in this encounter Medications at Time [...] on Mon and Mon 7.5mg tablet on Sun, Mon, Tues, Thur, Sat as of this encounter Progress [...] squamous cell carcinoma. Therapist: Tashia Avery MA, L/CCC-PIPE STEM REPAIRER Voalte: [id number] Date: 07/24/2018 * Marisol Cruz, RN - 07/24/2018 11:24 AM CDT Wound [...] service will sign off. Thank you. Marisol Cruz, RN, BSN, CWON Wound/Ostomy Nursing Consult Service Office: [phone] Pager: [phone] Wound/Ostomy Team Pager (After Hours/Weekends): [phone] * Yazmin Ryan, SPONGE FISHERMAN-WELL DRILL OPERATOR CABLE TOOL - 07/24/2018 10:04 AM CDT Formatting of [...] (Last 24 hours) Glucose: (!) 110 (07/24/18 4404) Radiology and other Diagnostics Review: Final Diagnosis: [...] status and/or prior pathology. Pursuant to the Industry Analyst Program at the [facility] Pathology Department, selected slides from this case [...] stable, incisional care, Trach care. sutures and jacquelien out this am. NEURO: Awake alert pain control adequate, OT/PT for mobilization. PULM:4.0 cuffless trach secured in place with soft tie. Capped on rounds. Teaching comlpeted. CV: VSS- Anemia improved. Warfarin restarted 07/21. Daily INR- 1.1 To follow up with home Student Financial Aid Manager to manage home Warfarin. Next draw as outpt. ID: Afebrile, 6.7 no leukocytosis, completed ppx FEN/GI: Gtube in place tolerating bolus TF Dietary following. SLIV. On bowel regimen. LBM- 07/23 : UOP adequate Voiding spontaneously PPX: SQH , SCD's, completed ppx abx DISP: Discharge home today with HH services. Follow up ENT clinic. Yazmin Ryan APRN Pager [phone] * Arnoldo Napoles - 07/23/2018 6:59 PM [...] for education. Arnoldo Napoles 07/23/2018 * Kyung Gallegos, MOSES - 07/23/2018 1:46 PM CDT PHYSICAL THERAPY [...] Next Visit[facility] RECOMMENDATIONS: PT Discharge Recommendations PT Discharge Recommendations: Home with Assistance Equipment Recommendations: None Therapist: Kyung Gallegos, PT Date: 07/23/2018 * Yazmin Ryan, CONSTANTINO-WELL DRILL OPERATOR CABLE TOOL - 07/23/2018 10:19 AM CDT Formatting of [...] Intensity Pain Scale (Self Report): 2 (07/23/18 0759) Vitals: 07/17/18 0613 07/17/18 2253 Weight: 49.9 kg (110 lb) 51.9 kg (114 lb 6.7 oz) Intake/Output Summary: (Last 24 hours) Intake/Output Summary (Last 24 hours) at 07/23/18 1019 Last data filed at 07/23/18914 Gross per 24 hour Intake 1550 ml [...] status and/or prior pathology. Pursuant to the Industry Analyst Program at the [facility] Pathology Department, selected slides from this case [...] on discharging in am 07/24 Yazmin Ryan APRN Pager [phone] * Cheri Peoples, OT - 07/23/2018 10:11 AM CDT Formatting of this note may be different from the original. OCCUPATIONAL THERAPY ASSESSMENT NOTE Patient Name: Yeimy Lima Room/Bed: [place] [address] Admitting Diagnosis: Oral cancer (HCC) [C06.9] Past [...] Home Equipment: Walker;Cane Prior Function Level Of Weber: Independent with ADLs and functional transfers; Independent with homemaking w/ ambulation Lives With: Spouse Receives Help From: None Needed Homemaking Tasks: Meal Prep;Laundry;Driving Vocational: Retired Other Function Comments: Patient reports she is independent with basic ADLs and IADLs. Spouse is available to provide / supervision and grandson is RN and assisting [...] and clinical judgment. Therapist: DUNIA Norton/Mary Ann [id number] Date: 07/23/2018 * Maura Barnes - 07/23/2018 8:31 AM CDT CLINICAL NUTRITION Clinical Nutrition Follow-Up Summary NAME:Yeimy Lima :1945 AGE: 73 y.o. ADMISSION DATE: 07/17/2018 DAYS ADMITTED: LOS: 6 days Nutrition Assessment of Patient: Malnutrition Assessment: Does not meet criteria Current Oral Intake: NPO Estimated Calorie Needs: 4444-6491 (30-35 kcal/kg admit wt) Estimated Protein Needs: [...] Not met;Ongoing Leann Barnes RD, LD Pager: [phone] * Nichole Morales - 07/22/2018 10:33 AM [...] (Last 24 hours) Glucose: (!) 107 (07/22/18 0519) Radiology and other Diagnostics Review: Surgical Pathology [...] / 25.7 Continue to monitor daily cbc. Will start [...] name: Abdi Alexandre MD Date: 07/22/2018 * Marina Iglesia, RT - 07/21/2018 12:47 AM CDT RT [...] Respiratory Effort: Respiratory Effort: Non-Labored * Madeline Conway, RN - 07/20/2018 2:05 PM CDT Gastrostomy [...] Clau Sandoval, PT Date: 07/20/2018 * Jennifer Martinez, RN - 07/20/2018 11:41 AM CDT I have reviewed the notes, assessment, and/or procedures performed by SANTI Rojas and concur with her/his documentation unless otherwise noted. * Italia Lima, SANTI - 07/20/2018 11:15 AM CDT Pt transferred to [facility] with two RNs via bed with family and belongings. Pt tolerated travel well. Handoff/safety check compete with SANTI Donald. * Yazmin Ryan, SPONGE FISHERMAN-WELL DRILL OPERATOR CABLE TOOL - 07/20/2018 8:26 AM CDT Formatting of [...] tablet 81 mg 81 mg Oral QDAY [Dec] atenolol (TENORMIN) tablet 50 mg 50 mg Per NG tube QDAY [DEC Hold] calcium carbonate/vitamin D-3 (OSCAL-500+D) 1250 mg/200 unit tablet 1 tablet 1 tablet Per NG tube QDAY [DEC Hold] docusate (COLACE) oral solution 100 mg 100 mg Per NG tube BID [DEC Hold] folic acid (FOLVITE) tablet 1 mg 1 mg Oral QDAY [Dec] lidocaine (LIDODERM) 5 % topical patch 1 patch 1 patch Topical QDAY [DEC Hold] lisinopril (PRINIVIL; ZESTRIL) tablet 10 mg 10 mg Per NG tube QDAY [Dec] loratadine (CLARITIN) tablet 10 mg 10 mg [...] tablet 100 mg 100 mg Oral QDAY [DEC Hold] zinc sulfate capsule 220 mg 220 mg Per NG tube QDAY Continuous Infusions: sodium chloride 0.9 % infusion 100 mL/hr at 07/20/18 0000 PRN and Respiratory Meds:[DEC Hold] bisacodyl QDAY PRN, [DEC Hold] diphenoxylate /atropine QID PRN, [DEC Hold] milk of magnesia (CONC) PRN, [DEC Hold] morphine injection syringe Q2H PRN, [DEC Hold] ondansetron (ZOFRAN) IV Q6H PRN, [DEC Hold ] oxyCODONE Q4H PRN, [DEC Hold] pancrelipase 20,000 Units/ sodium bicarbonate 650 mg(#) PRN (Labor Contractor from Rx) Objective Vital Signs: Last Filed Vital Signs: 24 Hour Range BP: 134/65 (07/20 1445) Temp: 36.7 C (98.1 F) (07/20 1220) Pulse: 75 (07/20 1445) Respirations: 11 PER MINUTE (07/20 1445) SpO2: 99 % (07/20 1445) O2 Delivery: Trach Shield (07/20 1445) SpO2 Pulse: 74 (07/20 1445) BP: (114-175)/(59-95) [...] Physical Exam Awake, alert, follows commands 6.0 Rosemaryley trach sutured in place, cuff down, on [...] visual flap checks. Yazmin Ryan APRN Pager [phone] * Dior Molina RN - 07/19/2018 1:57 [...] Clau Sandoval, PT Date: 07/19/2018 * Natty Elliott RN - 07/19/2018 10:15 AM CDT Interventional Radiology Progress Note G tube placement. Tongue CA. Team requesting on 07/20. Has red de leon in place. Labs/meds ok. Natty Elliott RN * Charles Ware, RT - 07/19/2018 8:04 AM CDT Trach cuff was deflated by physician according to patient. * Connor Yazmin M, SPONGE FISHERMAN-WELL DRILL OPERATOR CABLE TOOL - 07/19/2018 7:26 AM CDT Formatting of [...] 20,000 Units/ sodium bicarbonate 650 mg(#) PRN (Labor Contractor from Rx) Objective Vital Signs: Last Filed [...] hours) Intake/Output Summary (Last 24 hours) at 07/19/18727 Last data filed at 07/19/18 0700 Gross [...] after Gtube placement in am. Yazmin Ryan SPONGE FISHERMAN Pager [phone] Associated attestation - Abdi Alexandre MD - [...] OR with two RNs. Handoff complete with PULL OUT OPERATOR/Anesthesia. Consent in chart. 1100 Pt returned to [...] CDT Reason for Visit: [facility] field sales executive, Rosario/Gnosticism: Adventism, Source of Purpose/Meaning: Post surgical recovery, pt [...] (98.5 F) (07/18 0400) Pulse: 73 (07/18 0700) Respirations: 17 PER MINUTE (07/18 700) SpO2: 98 % (07/18 700) O2 Delivery: Trach Shield (07/18 0000) SpO2 Pulse: 74 (07/18 700) Height: 144.8 cm (57.01") (07/17 2253) BP: (88-140)/(51-74) ABP: (86-149)/(41-64) Temp: [36 C (96.8 F)-36.9 C (98.5 F)] Pulse: [73-88] Respirations: [6 PER MINUTE-21 PER MINUTE] SpO2: [94 %-100 %] O2 Delivery: Trach Shield Intensity Pain Scale (Self Report): 6 (07/18/18599) Vitals: 07/17/18 0613 07/17/182252 Weight: 49.9 kg (110 lb) 51.9 kg (114 lb 6.7 oz) Drain Output: 105 100 63 260 5 Intake/Output Summary: (Last 24 hours) Date 07/17/18700 - 07/18/1869907/18/18700 - 07/19/18699 Shift 0958-7595 3224-0683 24 Hour Total 6728-2205 6726-4849 24 Hour Total I N T A K E I.V. (mL/kg/hr) 3000 (5) 2150 (3.5) 5150 (4.1) Other 100 100 Shift Total (mL/kg) 3000 (60.1) 2250 (43.4) 5250 (101.2) O U T P U T Urine (mL/kg/hr) 1400 (2.3) 440 (0.7) 1840 (1.5) Urine 6748 521 8618 Urine Output (ml) (Indwelling Urinary Catheter 07/17/18 [...] evaluation. Christian House MD Otolaryngology Resident, PGY-2 0101 For routine questions during weekday business hours, please page Yazmin [place] at [phone]. All other questions and on weekends and nights ([phone]) page ENT storage management consultant at [phone]. Associated attestation - Abdi Alexandre [...] and revise reconstruction if necessary. * Chance Vicente RT - 07/18/2018 12:50 AM CDT RT [...] overnight , next check at 2:00AM. Addendum (4790) Patient asleep on exam. Patient's vitals remain [...] performed by J Luis Flores MD at [facility] OR/Periop GLOSSECTOMY Left 07/17/2018 GLOSSECTOMY/ HEMIGLOSSECTOMY performed by J Luis Flores MD at [facility] OR/Periop TISSUE TRANSFER Left 07/17/2018 TISSUE TRANSFER FREE FASCIAL FLAP WITH MICROVASCULAR ANASTOMOSIS performed by J Luis Flores MD at [facility] OR/Periop TISSUE TRANSFER 07/17/2018 TISSUE TRANSFER FREE FASCIAL FLAP WITH MICROVASCULAR ANASTOMOSIS performed by Abdi Alexandre MD at [facility] OR/Periop TISSUE GRAFT Left 07/17/2018 TISSUE TRANSFER MUSCLE/ MYOCUTANEOUS/ FASCIOCUTANEOUS FLAP WITH VASCULAR PEDICLE - HEAD/ NECK performed by Abdi Alexandre MD at [facility] OR/Periop EXPLORATION WOUND N/A 07/18/2018 EXPLORATION POSTOPERATIVE WOUND - NECK performed by Abdi Alexandre MD at [facility] OR/ Periop BIOPSY 2017 tongue REVISION TOTAL [...] warfarin (COUMADIN) 5 mg tablet 5mg on Mon and Mon 7.5mg on Sun, Mon, Tu , Thur, Sat Past Week No Known [...] 1113) Temp: 37 C (98.6 F) (07/20 1113) Pulse: 91 (07/20 1113) Respirations: 16 PER MINUTE (07/20 1113) SpO2: 98 % (07/20 1113) O2 Delivery: None (Room Air) (07/20 111) SpO2 Pulse: 93 (07/20 0800) BP: (168)/(67) [...] Pertinent labs reviewed Rafaela Parekh APRN Pager [phone] * Eddie Daniels MD - 07/17/2018 7:20 [...] with Cancer Surveillance History of Present Illness: Yeimy Lima is a 73 y.o. year old female evaluated on 06/27/2018, in the Otolaryngology-Head and Neck Surgery Clinic at the [facility]. The patient was referred by Dr. Olivares [...] disease. IMPRESSION: My impression is that Ms. Lima has which I would tentatively stage as [...] None 07/19/2018 11:45 AM Wound Base Assessment Moist;[place] 07/19/2018 11:45 AM Surrounding Skin Assessment Dry;Intact [...] BSN, CWON Wound/Ostomy Nursing Consult Service Office: [phone] Pager: [phone] Wound/Ostomy Team Pager (After Hours/Weekends): [phone] * Georgia Mcgill RD - 07/18/2018 4:00 PM CDT Associated Order(s): CONSULT DIETITIAN CLINICAL NUTRITION Clinical Nutrition Assessment Summary NAME:Yeimy Lima :1945 AGE: 73 y.o. ADMISSION DATE: 07/17/2018 DAYS ADMITTED: LOS: 1 day Nutrition Assessment of Patient: BMI Categories Adult: Acceptable: 18.5-24.9 Malnutrition Assessment: Does not meet criteria Current Oral Intake: NPO Estimated Calorie Needs: 7369-9297 (30-35 kcal/kg admit wt) Estimated Protein Needs: [...] unintentional loss (not significant) x 6 weeks CLIENT MANAGER. Was still able to eat soft foods including fish/beans, yogurt and vegetables CLIENT MANAGER just smaller amounts than before. Does not [...] 72 Hours Georgia Mcgill, MS,RD, LD, CNSC *[phone] in this encounter Miscellaneous Notes * Case Mgmt DC Plan - Nalini Green - 07/24/2018 11:49 AM CDT Formatting of this note may be different from the original. Case Management Progress Note NAME:Yeimy Lima :1944 AGE: 73 y.o. ADMISSION DATE: 07/17/2018 DAYS ADMITTED: LOS: 7 days Todays Date: 07/24/2018 Plan [place] notified by [facility] that portable suction was not delivered to her for bedside delivery and she has other obligations today and works tomorrow. Jasmyn states pt would likely have delayed d/c. NCM suggesting a loaner suction and pt d/c home and get ALL equipment through branch office. [place] coordinating with Jaylyn Accolo [phone] and Jeri Pandya/Celine and Loaner sxn approved for delivery. SPONGE FISHERMAN notified. Pt able to d/c home safely today per original plan with no delays. ' UPDATE: NC updated agencies that pt is walking out [...] for the patient. Jaimie Green RN Nurse Strapper * Case Mgmt DC Plan - EzequielRip moralezelle - 07/24/2018 9:53 AM CDT Formatting of this note may be different from the original. Case Management Progress Note NAME:Yeimy Lima :1944 AGE: 73 y.o. ADMISSION DATE: 07/17/2018 DAYS ADMITTED: LOS: 7 days Todays Date: 07/24/2018 Plan NCM discussing d/c planning with SPONGE FISHERMAN/SW in huddle. Pt to leave after bedside portable suction delivered, Rad Onc consult occurs. NCM to pt bedside to answer d/c questions, pt directed to call FINANCIAL COUNSELOR and DME when driving away from hospital to alert them of home arrival to accept DME. [facility] notifying all provider/agencies of d/c today. [facility] sent faxed, signed orders to FINANCIAL COUNSELOR, DME provider and Student Financial Aid Manager following INR. [facility] P: [phone] F: [phone] and INR to be drawn by agency on and reported to [facility] Student Financial Aid Manager Dr Salvador Zamarripa P: [phone] F: [phone]. Durable Medical Equipment: portable suction to be provided by [facility] (delivered to bedside prior to discharge) and home delivery of heated humidification and PEG tube feeds, (delivered to the home, same day as discharge) P: [phone] F: [phone] Pt verbalized understanding that medical appointments cannot occur on same day as physician appointments. [facility] sent task to [facility] to fax all physician, FINANCIAL COUNSELOR and DME providers AVS TODAY post d/c. [...] for the patient. Jaimie Green RN Nurse Strapper * Care Plan - Cassie Chris RN [...] discussing d/c planning and confirming they want FINANCIAL COUNSELOR of: [facility] P: [phone] F: [phone] Pt/spouse confirm and NCM educated that agency has confirmed acceptance NCM discussing DME and family requesting assist in finding DME provider in [place] through NCM assist. NCM coordinating d/c planning through pt Student Financial Aid Manager upon d/c Dr Salvador Zamarripa P: [phone] F: [phone] NCM to request FINANCIAL COUNSELOR do first INR on post d/ c on Monday. Patient Address/Phone [address] [place] [phone] (home) Emergency Contact Extended Emergency Contact Information Primary Emergency Contact: Chance Molina [facility] Mobile Relation: Spouse Healthcare Directive Healthcare Directive: Yes, patient has a healthcare directive Type of Healthcare Directive: Durable power of senior attorney for healthcare, Healthcare directive Location of [...] PCP Hyacinth Arias, , None ? Pharmacy [id number] - [place], [place] - [address] [facility] [address] [facility] [address] ? Durable Medical Equipment ? Home Health Receiving home health: In the past Agency name: [facility] P: [phone] F: [phone] Would patient use this agency again?: Yes ? Hemodialysis or Peritoneal Dialysis Undergoing hemodialysis or peritoneal dialysis: No ? Tube/Enteral Feeds Receive tube/enteral feeds: No ? Infusion Receive infusions: No ? Private Duty Private duty help used: No ? Home and Community Based Services ? Matt Bajwa: N/A ? Hospice Hospice: No ? Outpatient Therapy ? Assisted Facility/Fpc SNF: No NH: No ? Inpatient Rehab ? Long-Term Acute Care Hospital ? Acute Hospital Stay Acute Hospital Stay: No Jaimie Green RN Nurse Strapper Case Management Progress Note NAME:Yeimy Lima :1944 AGE: 73 y.o. ADMISSION DATE: 07/17/2018 DAYS ADMITTED: LOS: 6 days Todays Date: 07/23/2018 Plan Pt to d/c home tomorrow with FINANCIAL COUNSELOR: [facility] P: [phone] F: [phone] and INR to be drawn by agency on and reported to [facility] Student Financial Aid Manager Dr Salvador Zamarripa P: [phone] F: [phone]. DME, portable suction to be provided by [facility], and home delivery of heated humidification and PEG tube deeds P: [phone] F: [phone] Pt verbalized understanding that medical appointments cannot [...] service has been selected for the patient. [facility] Destination No service has been selected for the patient. Home Care No service has been selected for the patient. Dialysis/Infusion No service has been selected for the patient. Jaimie Green RN Nurse Strapper * Care Plan - Stefany Arce RN [...] Procedure(s): G tube Pre/Post Diagnosis: Oral ca, ferry terminal agent feds Description/Findings: none Anesthesia: 2% lidocaine Time out performed: Consent obtained, correct patient verified, correct procedure verified, correct site verified, patient marked as necessary. Estimated Blood Loss: None/Negligible Specimen(s) Removed/Disposition: None Complications: None Agustin Kumar MD * Anesthesia Post Op Day 1 - Tal Valderrama SRNA - 07/19/2018 10:39 AM CDT Formatting of [...] 20,000 Units/ sodium bicarbonate 650 mg(#) PRN (Labor Contractor from Rx) Diagnostic Tests Hematology: Lab Results [...] ICU - stable Leidy Waldron MD Pager [phone] Associated attestation - Abdi Alexandre MD - [...] Alexandre MD - 07/18/2018 9:40 AM CDT [address] [address] PATIENT NAME: YEIMY LIMA MR#/PT#: [id number] Page 2 OPERATIVE REPORT DATE OF OPERATION: 07/18/2018 SURGEON: Abdi Alexandre MD CHIEF WELLNESS OFFICER(S): Leidy Waldron MD. PREOPERATIVE DIAGNOSIS: 1. History [...] Total of 30 mL. SPECIMENS REMOVED: none MD MISSY Chaudhary / LORI /[id number] cc: - Abdi Alexandre MD * Procedures (Immed Post or Bedside) - J Luis Flores MD - 07/17/2018 10:41 AM CDT Formatting of this note may be different from the original. Brief Operative Note - Otolaryngology-Head and Neck Surgery Pre-Operative Diagnosis: oral cancer Post-Operative Diagnosis: same Procedure(s): left hemiglossectomy Bilateral modified radical neck dissection tracheostomy Surgeon(s): Oscar Director Cardiac Surgeon(s): Layo Daniels Estimated Blood Loss: 250 [...] Cavity SURGICAL PATHOLOGY J Luis Flores MD 07/17/2018903 2 : anterior dorsal tongue mm Tissue Oral Cavity SURGICAL PATHOLOGY J Luis Flores MD 07/17/2018903 3 : posterior dorsal tongue mm Tissue Oral Cavity SURGICAL PATHOLOGY J Luis Flores MD 07/17/2018903 4 : posterior floor of mouth mm Tissue Oral Cavity SURGICAL PATHOLOGY J Luis Flores MD 07/17/2018 09 5 : anterior floor of mouth mm Tissue Oral Cavity SURGICAL PATHOLOGY J Luis Flores MD 07/17/2018 09 6 : ventral tongue mm Tissue Oral Cavity SURGICAL PATHOLOGY J Luis Flores MD 07/17/2018 09 7 : deep margin Tissue Oral Cavity [...] MD 07/17/2018 1021 Eddie Daniels MD Pager [phone] * Operative Report (DICTATED ONLY) - Abdi Alexandre MD - 07/17/2018 8:46 AM CDT THE [address] [address] PATIENT NAME: YEIMY LIMA MR#/PT#: [id number] Page 2 OPERATIVE REPORT DATE OF OPERATION: [...] venous system was connected using a 3.5 roving teller. The vascular clamps were let down. Visually [...] BLOOD LOSS: 500 mL. SPECIMENS REMOVED: none Abdi Alexandre MD JRB / MEDQ /[id number] cc: - Abdi Alexandre MD - Rod [...] are in the results section. TYPE & CROSSMATCH STAT 07/17/2018 Atrial fibrillation, [...] LAB RANGES Specimen Blood Performing Organization Address [facility] Phone Number MAIN LAB [address] [place] [address] * MAGNESIUM (07/24/2018 5:41 AM) Magnesium 1.8 1.6 - 2.6 mg/dL [facility] MAIN LAB Specimen Blood Performing Organization Address [facility] Phone Number MAIN LAB [address] [place] [address] * BASIC METABOLIC PANEL (07/24/2018 5:41 AM) [...] for questions. Specimen Blood Performing Organization Address [facility] Phone Number MAIN LAB [address] [place] [address] * PROTIME INR (PT) (07/24/2018 5:41 AM) INR 1.1 0.8 - 1.2 [facility] MAIN LAB Specimen Blood Performing Organization Address [facility] Hospital/[facility] Hospital[facility] Phone Number [facility] MA[facility] [address] [place] [address] * PROTIME INR (PT) (07/23/2018 4:19 AM) INR 1.1 0.8 - 1.2 [facility] MAIN [facility] Specimen Blood Performing Organization Address [facility] Phone Number [facility] [address] [place] [address] * PROTIME INR (PT) (07/22/2018 5:19 AM) INR 1.0 0.8 - 1.2 [facility] MAIN [facility] Specimen Blood Performing Organization Address [facility] Phone Number [facility] [address] [place] [address] * PHOSPHORUS (07/22/2018 5:19 AM) Phosphorus 3.5Comment: NOTE NEW REFERENCE 2.0 - 4.5 MG/DL [facility]IN [facility] RANGES Specimen Blood Performing Organization Address [facility] Phone Number [facility] [address] [place] [address] * MAGNESIUM (07/22/2018 5:19 AM) Magnesium 2.0 1.6 - 2.6 mg/dL [facility] Specimen Blood Performing Organization Address [facility] Phone Number [facility] [address] [place] [address] * CBC (07/22/2018 5:19 AM) White Blood [...] LAB MCHC 34.4 32.0 - 36.0 G/DL MAIN LAB RDW 16.4 (H) 11 - 15 % [facility] MAIN [facility] Platelet Count 204 150 - 400 K/UL [facility] MAIN [facility] MPV 6.6 (L) 7 - 11 FL MAIN LAB Specimen Blood Performing Organization Address [facility]/Zipcode Phone Number MAIN LAB [address] [place] [address] * BASIC METABOLIC PANEL (07/22/2018 5:19 AM) [...] LAB Creatinine 0.64 0.4 - 1.00 MG/DL MAIN LAB Calcium [...] for questions. Specimen Blood Performing Organization Address [facility] Phone Number MAIN LAB [address] [place] [address] * PROTIME INR (PT) (07/21/2018 11:29 AM) INR 1.0 0.8 - 1.2 MAIN LAB Specimen Blood Performing Organization Address [facility] Phone Number MAIN LAB [address] [place] [address] * PHOSPHORUS (07/21/2018 5:32 AM) Phosphorus 3.0Comment: NOTE NEW REFERENCE 2.0 - 4.5 MG/DL MAIN LAB RANGES Specimen Blood Performing Organization Address [facility]/Zipcode Phone Number MAIN LAB [address] [place] [address] * MAGNESIUM (07/21/2018 5:32 AM) Magnesium 1.8 1.6 - 2.6 mg/dL MAIN LAB Specimen Blood Performing Organization Address City/[facility]/Zipcode Phone Number [facility] MAIN [facility] [address] [place] [phone] * BASIC METABOLIC PANEL (07/21/2018 5:32 AM) [...] for questions. Specimen Blood Performing Organization Address [facility]/Zipcode Phone Number MAIN LAB [address] [place] [phone] * CBC (07/21/2018 5:32 AM) White Blood [...] MAIN LAB Specimen Blood Performing Organization Address City/[facility]/Zipcode Phone Number MAIN LAB [address] [place] [phone] * IR GASTROSTOMY (07/20/2018 2:06 PM) Impressions [...] needle and curled in the stomach.A 14 American telescoping peel-away sheath was then placed over [...] and curled in the stomach. A 14 American telescoping peel-away sheath was then placed over [...] interpretations and opinions expressed in this report. @ Finalized by Agustin Kumar M.D. on 07/20/2018 2:23 PM. Dictated by Agustin Kumar M.D. on 07/20/2018 2:17 PM. Performing Organization Address [facility] HospitalBlack Duck Softwaretn Phone Number [facility] RESULTS * PHOSPHORUS (07/20/2018 4:06 AM) Phosphorus 1.7 (L)Comment: NOTE NEW 2.0 - 4.5 MG/DL [facility] MAIN [facility] REFERENCE RANGES Specimen Blood Performing Organization Address [facility] Phone Number [facility] [address] [place] [address] * MAGNESIUM (07/20/2018 4:06 AM) Magnesium 2.0 1.6 - 2.6 mg/dL [facility] MAIN [facility] Specimen Blood Performing Organization Address [facility] HospitalBlack [facility] Softwaretn Phone Number [facility] [address] [place] [address] * BASIC METABOLIC PANEL (07/20/2018 4:06 AM) [...] for questions. Specimen Blood Performing Organization Address City/[facility]/Zipcode Phone Number MAIN LAB [address] [place] [phone] * CBC (07/20/2018 4:06 AM) White Blood [...] MAIN LAB Specimen Blood Performing Organization Address City/[facility] Phone Number [facility] [address] [place] [address] * CBC (07/19/2018 11:41 AM) White Blood [...] LAB MPV 7.4 7 - 11 FL MAIN LAB Specimen Blood Performing Organization Address City/[facility] Hospitalcode Phone Number MAIN LAB [address] [place] [address] * PHOSPHORUS (07/19/2018 4:11 AM) Phosphorus 2.1Comment: NOTE NEW REFERENCE 2.0 - 4.5 MG/DL [facility] MAIN [facility] RANGES Specimen Blood Performing Organization Address [facility] Phone Number MAIN LAB [address] [place] [phone] * MAGNESIUM (07/19/2018 4:11 AM) Magnesium 2.1 1.6 - 2.6 mg/dL MAIN LAB Specimen Blood Performing Organization Address [facility] Phone Number MAIN LAB [address] [place] [address] * BASIC METABOLIC PANEL (07/19/2018 4:11 AM) Sodium 134 (L) 137 - 147 MMOL/L MAIN LAB Potassium 4.0 3.5 - 5.1 MMOL/L MAIN LAB Chloride 106 98 - 110 MMOL/L MAIN LAB CO2 24 21 - 30 MMOL/L [facility] Anion Gap 4 3 - 12 [facility] MAIN [facility] Glucose 154 (H) 70 - 100 MG/DL MAIN LAB Blood Urea Nitrogen 17 7 - 25 MG/DL MAIN LAB Creatinine 0.93 0.4 - 1.00 MG/DL MAIN LAB Calcium 8.6 8.5 - 10.6 MG/DL MAIN LAB eGFR Non 59 (L) >60 mL/min MAIN LAB Comment: The eGFR [...] for questions. Specimen Blood Performing Organization Address City/[facility] Phone Number MAIN LAB [address] [place] [phone] * CBC (07/19/2018 4:11 AM) White Blood Cells 9.5 4.5 - 11.0 K/UL [facility] MAIN [facility] RBC 2.30 (L) 4.0 - 5.0 M/UL [facility] MAIN [facility] Hemoglobin 7.4 (L) 12.0 - 15.0 GM/DL [facility] MAIN [facility] Hematocrit 21.5 (L) 36 - 45 % [facility] MAIN [facility] MCV 93.3 80 - 100 FL [facility] MAIN [facility] MCH 32.2 26 - 34 PG [facility] MAIN [facility] MCHC 34.5 32.0 - 36.0 G/DL [facility] RDW 15.9 (H) 11 - 15 % [facility]IN [facility] Platelet Count 143 (L) 150 - 400 K/UL [facility] MAIN [facility] MPV 7.6 7 - 11 FL [facility] MAIN [facility] Specimen Blood Performing Organization Address City/[facility]/Zipcode Phone Number [facility] [address] [place] [address] * PHOSPHORUS (07/18/2018 4:00 AM) Phosphorus 4.0Comment: NOTE NEW REFERENCE 2.0 - 4.5 MG/DL [facility] MAIN [facility] RANGES Specimen Blood Performing Organization Address City/[facility] Phone Number MAIN LAB [address] [place] [address] * MAGNESIUM (07/18/2018 4:00 AM) Magnesium 1.4 (L) 1.6 - 2.6 mg/dL MAIN LAB Specimen Blood Performing Organization Address City/[facility] Phone Number MAIN LAB [address] [place] [address] * BASIC METABOLIC PANEL (07/18/2018 4:00 AM) [...] City/State/Zipcode Phone Number [facility] [address] [place] [address] * CBC (07/18/2018 4:00 AM) White Blood [...] - 34 PG [facility] MAIN [facility] MCHC 33.3 32.0 - 36.0 G/DL [facility] MAIN [facility] RDW 15.5 (H) 11 - 15 % [facility] MAIN [facility] Platelet Count 153 150 - 400 K/UL [facility] MAIN [facility] MPV 7.6 7 - 11 FL [facility] MAIN [facility] Specimen Blood Performing Organization Address City/[facility]code Phone Number [facility] [address] [place] [address] * CBC (07/18/2018 12:10 AM) White Blood [...] MAIN LAB Specimen Blood Performing Organization Address City/[facility]/Zipcode Phone Number [facility] [address] [place] [phone] * ABDOMEN AP ONLY (07/17/2018 11:42 PM) [...] on 07/18/2018 8:42 AM. Performing Organization Address City/State/Zipcode Phone Number [facility] RAD RESULTS * POTASSIUM, BG (07/17/2018 7:09 PM) Potassium 3.8 3.5 - 5.1 MMOL/L [facility] MAIN [facility] Specimen Blood Performing Organization Address City/[facility]code Phone Number MAIN LAB [address] [place] [address] * SODIUM,BG (07/17/2018 7:09 PM) Sodium 133 (L) 137 - 147 MMOL/L MAIN LAB Specimen Blood Performing Organization Address [facility] Phone Number MAIN LAB [address] [place] [address] * IONIZED CALCIUM,BG (07/17/2018 7:09 PM) Ionized Calcium 1.08 1.0 - 1.3 MMOL/L MAIN LAB Specimen Blood Performing Organization Address [facility] Phone Number MAIN LAB [address] [place] [address] * GLUCOSE,BG (07/17/2018 7:09 PM) Glucose 154 (H) 70 - 100 MG/DL MAIN LAB Specimen Blood Performing Organization Address [facility] [place] Phone Number MAIN LAB [address] [place] [address] * BLOOD GASES, ARTERIAL (07/17/2018 7:09 PM) pH-Arterial 7.43 7.35 - 7.45 MAIN LAB pCO2-Arterial 32 (L) 35 - 45 MMHG MAIN LAB pO2-Arterial 172 (H) 80 - 100 MMHG MAIN LAB Base Deficit-Arterial 2.4 MMOL/L MAIN LAB O2 Sat-Arterial 99.1 (H) 95 - 99 % MAIN LAB Gucvendyotq-MIV-Xsi 22.4 21 - 28 MMOL/L MAIN LAB Specimen Blood, arterial - Blood Performing Organization Address [facility] Phone Number MAIN LAB [address] [place] [address] * HEMOGLOBIN & HEMATOCRIT, BG (07/17/2018 7:09 PM) Hemoglobin BG 9.0 (L) 12.0 - 15.0 GM/DL MAIN LAB Hematocrit BG 27.8 (L) 36 - 45 % MAIN LAB Specimen Blood Performing Organization Address [facility] Phone Number MAIN LAB [address] [place] [address] * POTASSIUM, BG (07/17/2018 3:58 PM) Potassium 3.7 3.5 - 5.1 MMOL/L MAIN LAB Specimen Blood Performing Organization Address [facility] Phone Number MAIN LAB [address] [place] [address] * SODIUM,BG (07/17/2018 3:58 PM) Sodium 131 (L) 137 - 147 MMOL/L MAIN LAB Specimen Blood Performing Organization Address City/[facility] Phone Number MAIN LAB [address] [place] [address] * IONIZED CALCIUM,BG (07/17/2018 3:58 PM) Ionized Calcium 1.09 1.0 - 1.3 MMOL/L MAIN LAB Specimen Blood Performing Organization Address [facility] Phone Number MAIN LAB [address] [place] [phone] * GLUCOSE,BG (07/17/2018 3:58 PM) Glucose 160 (H) 70 - 100 MG/DL MAIN LAB Specimen Blood Performing Organization Address [facility] Phone Number MAIN LAB [address] [place] [phone] * BLOOD GASES, ARTERIAL (07/17/2018 3:58 PM) pH-Arterial 7.43 7.35 - 7.45 MAIN LAB pCO2-Arterial 32 (L) 35 - 45 MMHG MAIN LAB pO2-Arterial 180 (H) 80 - 100 MMHG MAIN LAB Base Deficit-Arterial 2.4 MMOL/L MAIN LAB O2 Sat-Arterial 99.4 (H) 95 - 99 % MAIN LAB Tkuuobpsgvq-IYH-Iax 22.4 21 - 28 MMOL/L MAIN LAB Specimen Blood, arterial - Blood Performing Organization Address [facility] Phone Number MAIN LAB [address] [place] [address] * HEMOGLOBIN & HEMATOCRIT, BG (07/17/2018 3:58 PM) Hemoglobin BG 9.1 (L) 12.0 - 15.0 GM/DL MAIN LAB Hematocrit BG 28.2 (L) 36 - 45 % MAIN LAB Specimen Blood Performing Organization Address [facility] Phone Number MAIN LAB [address] [place] [phone] * SURGICAL PATHOLOGY (07/17/2018 9:13 AM) PATHOLOGY REPORT [facility] [email or web address] Department of Pathology and Laboratory Medicine [address] [place] [address] Surgical Pathology Office:[phone] [phone] SURGICAL PATHOLOGY REPORT NAME: YEIMY LIMA SURG PATH #: [id number] MR #: [id number] SPECIMEN CLASS: [facility] BILLING #: [id number] ALT ID #:LOCATION: [facility] DATE OF PROCEDURE: 07/17/2018 AGE:73 SEX: F [...] Pathologic Stage Classification (pTNM, AJCC 8th Edition): [id number]/ Note: Reporting of pT, pN, and (when [...] status and/or prior pathology. Pursuant to the Industry Analyst Program at the [facility] Pathology Department, selected slides from this case [...] cassette A1FS for frozen and permanent sectioning. ([facility]) B. Received fresh labeled with the patient's name and "posterior dorsal tongue MM" is a 3.4 x 0.8 x 0.5 cm irregular piece of potts-pink tissue. The specimen is bisected and is entirely submitted in cassette B1FS for frozen and permanent sectioning. ([facility]) C. Received fresh labeled with the patient's name and "posterior floor mouth MM" is a 1.3 x 0.9 x 0.5 cm irregular piece of potts-pink tissue. The specimen is entirely submitted in cassette C1FS for frozen and permanent sectioning. ([facility]) D. Received fresh labeled with the patient's name and "anterior floor mouth MM" is a 0.6 x 0.4 x 0.3 cm irregular piece of potts-pink tissue. The specimen is entirely submitted in cassette D1FS for frozen and permanent sectioning. ([facility]) E. Received fresh labeled with the patient's name and "ventral tongue MM" is a 2.5 x 0.5 x 0.3 cm aggregate of potts-pink tissue. The specimen is entirely submitted in cassette E1FS for frozen and permanent sectioning. ([facility]) F. Received fresh labeled with the patient's name and "deep margin" is a 0.5 x 0.5 x 0.4 cm irregular piece of potts-pink tissue. The specimen is entirely submitted in cassette F1FS for frozen and permanent sectioning. ([facility]) G. Received fresh, labeled with the [...] slice bisected). G10 6:00 margin, serially sectioned. ([facility]) H. Received fresh labeled with the patient's [...] to 2.5 x 1.2 x 0.9 cm. sales representative trainee sections of the specimen are submitted as follows: H1-H2 Grossly consistent submandibular gland. H3 One possible lymph node, submitted whole. H4 Two possible lymph nodes, bisected (one possible lymph node differentially inked black). H5-H6 One possible lymph node, serially sectioned. ([facility]) I. Received fresh labeled with the [...] of fibroadipose tissue and possible lymph nodes. ([facility]) J. Received fresh labeled with the [...] to 1.3 x 1.1 x 0.7 cm. Medical Collections Specialist sections of the specimen are submitted as follows: J1-J2 Grossly consistent submandibular gland. J3 Three possible lymph nodes, submitted whole. J4 One possible lymph node, bisected. J5 Fibroadipose tissue and possible lymph nodes submitted entirely. ([facility]) K. Received fresh labeled with the [...] of fibroadipose tissue and possible lymph nodes. ([facility]) [facility]/07/17/2018 Intraoperative Consultation: A1FS, squamous mucosa, "anterior [...] for malignancy. Frozen section performed at the [facility], [facility], [address] [place] [address]. Alyssa Palencia MD Performing Organization Address City/[facility] Phone Number LAB RESULTS * PTT (APTT) (07/17/2018 8:08 AM) APTT 22.6Comment: NOTE NEW 20.0 - 36.0 SEC [facility] [employer] MAIN LAB REFERENCE RANGES Specimen Blood Performing Organization Address [facility]/Zipcode Phone Number [facility] [employer] MAIN LAB [address] [place] [address] * PROTIME INR (PT) (07/17/2018 8:08 AM) INR 1.1 0.8 - 1.2 [facility] [employer] MAIN LAB Specimen Blood Performing Organization Address [facility] Phone Number [facility] [employer] MAIN LAB [address] [place] [address] * CBC AND DIFF (07/17/2018 8:08 AM) [...] Organization Address City/State/Zipcode Phone Number MAIN LAB [address] [place] [address] * BASIC METABOLIC PANEL (07/17/2018 7:31 AM) [...] Number [facility] MAIN [facility] [address] [place] [address] * TYPE & CROSSMATCH (07/17/2018 7:31 AM) Units Ordered 3 [facility] MAIN [facility] Crossmatch Expires 07/20/2018 [facility] MAIN [facility] Record Check FOUND [facility] MAIN [facility] ABO/RH(D) O POS [facility] MAIN [facility] Antibody Screen NEG [facility] MAIN [facility] Electronic Crossmatch YES [facility] MAIN [facility] Unit Number [id number] [facility] MAIN LAB Blood Component Type RBC,ADSOL,LEUKO REDUCED [facility] MAIN [facility] Unit Division 0 [facility] MAIN LAB Status OF Unit REL FROM ALLOC MAIN LAB Transfusion Status OK TO TRANSFUSE MAIN LAB Crossmatch Result COMPATIBLE,ELECTRONIC [facility] MAIN [facility] Unit Number [id number] MAIN LAB Blood Component Type RBC,ADSOL,LEUKO REDUCED [facility] MAIN [facility] Unit Division 0 MAIN LAB Status OF Unit REL FROM ALLOC MAIN LAB Transfusion Status OK TO TRANSFUSE MAIN LAB Crossmatch Result COMPATIBLE,ELECTRONIC [facility] MAIN [facility] Unit Number [id number] MAIN LAB Blood Component Type RBC,ADSOL,LEUKO REDUCED [facility] MAIN [facility] Unit Division 0 [facility] MAIN [facility] Status OF Unit TRANSFUSED [facility] MAIN LAB Transfusion Status OK TO TRANSFUSE MAIN LAB Crossmatch Result COMPATIBLE,ELECTRONIC MAIN LAB Unit Number [id number] MAIN LAB Blood Component Type RBC,ADSOL,LEUKO REDUCED,2ND [facility] MAIN [facility] CONT. Unit Division 0 MAIN LAB Status OF Unit REL FROM ALLOC MAIN LAB Transfusion Status OK TO TRANSFUSE MAIN LAB Crossmatch Result COMPATIBLE,ELECTRONIC MAIN LAB Unit Number [id number] MAIN LAB Blood Component Type RBC,ADSOL,LEUKO REDUCED,2ND MAIN LAB CONT. 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 antiseptic mucus solvent 120 mL solution Given [...] CDT Given 07/24/2018 50 mg 08:46 CDT calcium carbonate/vitamin D-3 Given 07/22/2018 1 tablet (OSCAL-500+D) 1250 mg/200 unit tablet 1 08:50 CDT tablet 1 tablet, Per NG tube, DAILY, First dose on Mon07/18/18 at 0900, Until Discontinued Given 07/23/2018 1 tablet 09:00 CDT Given 07/24/2018 1 tablet 08:46 CDT clindamycin (CLEOCIN) 900 mg in sodium Given 07/18/2018 1,000 mL chloride 0.9% irrigation bottle 1,000 mL 09:34 CDT irrigation bottle 1,000 mL, INTRA-PROCEDURE MED, Starting Mon07/18/18 at 0934, Until Mon07/18/18 at 1128, Intra-op Given 07/18/2018 1,000 mL 10:00 CDT diphenoxylate/atropine (LOMOTIL) 2.5/0.025 mg tablet 1 [...] CDT Given 07/23/2018 100 mg 09:04 CDT folic acid (FOLVITE) tablet 1 mg Given [...] 07/24/2018 5,000 Units Abdominal 06:03 CDT Tissue ipratropium bromide (ATROVENT) 0.02 % nebulizer solution 0.5 mg 0.5 mg, Inhalation, RT NEEDED, Starting 07/21/18 at 0149, Until Tu07/24/18 at 1440, RT PROTOCOL, When administered by RT, will be per RT policy. lisinopril (PRINIVIL; ZESTRIL) tablet 10 Given 07/22/2018 [...] CDT Given 07/24/2018 10 mg 08:45 CDT morphine injection syringe 1-4 mg Given 07/18/2018 [...] NG tube, EVERY 4 HOURS PRN, Starting Tu07/17/18 at 2303, Until Mon07/24/18 at 1440, Pain PO Given 07/21/2018 10 mg 02:17 CDT Given 07/22/2018 5 mg 13:03 CDT pancrelipase 20,000 Units/ sodium Given 07/22/2018 1 capsule bicarbonate 650 mg(#) (KU CLOG 11:00 CDT DESTROYER) for occluded feeding tube cap 1 capsule 1 capsule, Feeding Tube, NEEDED (OIL FIELD EQUIPMENT MECHANIC FROM RX), Starting Rayna 07/19/18 at 0701, Until Mon07/24/18 at 1440, Other..., Occluded Feeding Tube, 1. [...] PACKET 17 GRAMS=1 PACKET 34 GRAMS=2 PACKETS simvastatin (ZOCOR) tablet 40 mg Given 07/21/2018 40 mg 40 mg, Per NG tube, AT BEDTIME DAILY, 20:07 CDT First dose on Mon07/17/18 at 2330, Until Discontinued, NURSING: Please educate patient and document: Avoid taking grapefruit juice. Given 07/22/2018 40 mg 21:06 CDT Given 07/23/2018 40 mg 20:44 CDT thiamine mononitrate tablet 100 mg Given [...] pressure ulcer warfarin (COUMADIN) tablet 5 mg 5 mg, [...] (Once 20:43 CDT per day on Mon Rayna Sat), First dose on Mon07/23/18 at 2100, Until Discontinued, NURSING: Provide patient with warfarin education leaflet and video. Do not give with cranberry juice. NOTE: This is a HIGH ALERT Medication. zinc sulfate capsule 220 mg Given 07/22/2018 [...]
--- OUTSIDE RECORDS SUMMARY | 2018-08-20 08:37 | XMS REPORT | Encounter Summary ---
Author Author [facility] Organization [facility] Address Unknown Phone Unavailable Care Team Providers Care Scrap Collector Name Role Phone AriasHyacinth wei PCP Encounter Details Date Type Department Care Team Description 07/17/2018 Procedure Pass [facility] Operating Room [address] [place] [address] Social History Tobacco Use Types [...]
--- OUTSIDE RECORDS SUMMARY | 2018-08-20 08:38 | XMS REPORT | Encounter Summary ---
Author Author [facility] Organization [facility] Address Unknown Phone Unavailable Care Team Providers Care Color Separation Photographer Name Role Phone Hyacinth Arias DO PCP Reason for Visit * Auth/Cert Status Reason Specialty Diagnoses / Referred By Referred To Procedures Contact Contact Diagnoses Oral cancer (HCC) Oral cancer (HCC) [C06.9] P rocedures HI CERVICAL LYMPHADEC MODIFIED RADICAL NECK DSJ HI GLOSSECTOMY HEMIGLOSSECTOMY HI FREE FASCIAL FLAP W/MICROVASCULAR ANASTOMOSIS CERVICAL LYMPHADENECTOMY GLOSSECTOMY/ HEMIGLOSSECTOMY TISSUE TRANSFER FREE FASCIAL FLAP WITH MICROVASCULAR ANASTOMOSIS Encounter Details Date Type Department Care Team Description 07/17/2018 Anesthesia [place] Operating Room Kelly Martinez MD Event [address] [place] [address] [place] [address] Anesthesia Record Procedure Name Responsible Anesthesia Start Time Anesthesia Stop Time Anesthesiologist CERVICAL LYMPHADENECTOMY Reddy Yadav MD 07/17/18 0810 07/17/18 2247 (Bilateral Neck) Date Time Event Comment 541 AN Equip Check 2018 0809 Out of Pre Procedure 0810 Anes Start 0810 In Room 0812 An Start Data 0815 An Induction The patient was reevaluated immediately before moderate or deep sedation use and before anesthesia induction. 0817 An Intubation 0818 Anesthesia Ready 0843 Antibiotic Given 0846 Proc Start 0851 Quick Note ETT converted to trach 0927 An Tourn L arm Inflated 1108 An Tourn Deflated 1555 Stat Labs Drawn 1602 Anes Handoff Leif to Curt 1659 Quick Note 1851 Quick Note discussion w/ surgical team regarding abx coverage: Pt has received max 24 hrs dose of ampicillin/sulbactim, this case is expected to continue past next scheduled abx redose; after discussion decision made by surgical team for no further abx redosing. 1905 Stat Labs Drawn 2241 an stop data 2246 Handoff to RN I completed my SBAR handoff to the receiving nurse. 2246 An Stop Meds Name Total fentaNYL PF (SUBLIMAZE) injection 250 mcg lidocaine (2%) 200 mg/10mL Injection 80 mg syringe propofol (DIPRIVAN) 200 mg/ 20 mL 130 mg injection (VIAL) rocuronium (ZEMURON) injection 130 mg ondansetron (ZOFRAN) injection 4 mg dexamethasone (DECADRON) 4 mg/mL 4 mg injection phenylephrine (KIA-SYNEPHRINE) 0.1 mg/mL 100 mcg injection (SYRINGE) sugammadex (BRIDION) 100 mg/mL iv soln 100 mg dextran 70/hypromellose (GENTEAL TEARS; 2 drop BION TEARS) ophthalmic solution ampicillin/sulbactam (UNASYN) 3 g in 12 g sodium chloride 0.9% (NS) 100 mL IVPB (MB+) methadone(#) (DOLOPHINE) injection 20 mg 20 mg ePHEDrine 50 mg/mL 50 mg in sodium 55 mg chloride PF 0.9% 5 mL IV syringe vasopressin (PITRESSIN) 20 units/mL 2 Units injection (VIAL) midazolam (VERSED) 1 mg/mL injection 3 mg HYDROmorphone injection (DILAUDID) 2 1.5 mg mg/mL acetaminophen (OFIRMEV) 1,000 mg 1,000 mg injection lactated ringers infusion 1,000 mL electrolyte-A (PLASMA-LYTE A PH 7.4) 1,850 mL infusion albumin 5% infusion (500 mL) 1,000 mL * Name O2 N2O Inspired Sevoflurane Inspired Sevoflurane * No blood administrations on file. Type [...] 1052; Leg; Surgical Incision; 07/17/18 1052 by Oscar, (NOT for telfa, tegaderm,kerlix,sally SANTI Arellano Pressure Injuries) Wounds 07/17/18; 1052; Chin to Neck to Chest; 07/17/18 1052 by Oscar, (NOT for Surgical Incision; sutures, bacitracin Eileen RN Pressure Injuries) Wounds 07/17/18; 1052; Other (Comment); 07/17/18 1052 by Oscar, (NOT for Surgical Incision; mouth: sutures SANTI Arellano Pressure Injuries) Surgical 07/17/18; 1515; Cuffed; 7.0; Armorred 07/17/18 1515 by Airway ETT in critical access hospital site was in place when Je Doherty CRNA assumed pt care. Peripheral 07/17/18; 1600; RN; R; Antecubital; 20 07/17/18 1600 by KENNETH Martinez G; 1 Kelly Posada MD Wounds 07/17/18; 1926; Chest; Surgical 07/17/181925 by Christopher, (NOT for Incision; sutures, jacqueline SANTI Bailey Pressure Injuries) Pressure 07/17/18; 2300; Y; Right, Mid; Buttocks; 07/17/18 2300 by Rosy , Injury Stage 2 SANTI Dodge Peripheral 07/17/18; 0730; RN; R; Mid; Forearm; 20 07/17/18 0730 by Harness, 07/19/18 1652 by KENNETH Lima G; 1; 07/19/18; 1652 SANTI Rader RN Arterial 07/17/18; 0821; R; Radial; 20 G; 1; 07/17/18 0821 by Juan, 1123 by Katy Lima 07/20/18; 1123; N; Correct Patient, MD Italia Collins RN Correct Patient Position, Correct Procedure, Correct Equipment / Implants Available, Marking Waived, Not Side Specific Indwelling 07/17/18; 0825; 16 FR; Regular (Two-way) 07/17/18 0825 by Oscar, 07/19/18 1824 by Veronica Lima (temp-sensing); 07/19/18; 1824 SANTI Arellano RN Catheter Red 07/17/18; 1023; Left Nare; 18FR; 07/17/18 1023 by Oscar, 07/21/18 0700 by Moises Oscar 07/21/18; 0700 SANTI Arellano RN NG Tube [place] 07/17/18; 1315; Left, Lower; Arm; 19 FR; 07/17/18 1315 by Oscar, 07/24/18 0800 by Verónica Mccullough #1; 07/24/18; 0800; Per Provider SANTI Arellano RN Drain [place] 07/17/18; 2026; Left; Chest; 19 FR; #2; 07/17/18 202 by Christopher, 07/22/18 1030 by Verónica Oscar 07/22/18; 1030; Per Provider SANTI Bailey RN Drain [place] 07/17/18; 2027; Left; Chest; 19 FR; #3; 07/17/182027 by Christopher, 07/24/18 0800 by Verónica Mccullough 07/24/18; 0800; Per Provider SANTI Bailey RN Drain [place] 07/17/18; 2037; Right; Neck; 19 FR; #4; 07/17/182037 by Christopher, 07/22/18 1030 by Verónica Oscar 07/22/18; 1030 SANTI Bailey RN Drain [place] 07/17/18; 2138; Left; Neck; 19 FR; #5; 07/17/18 213 by Christopher, 07/18/18 0920 by Verónica Spann 07/18/18; 09; Per Provider SANTI Bailey RN Drain [place] 07/17/18; 2201; 6.0; Cuffed, Shiley; 07/17/18 220 by Shepler, 07/23/18 0806 by Ice, my Tube 07/23/18; 0806 SANTI Bailey RN in this encounter Social History Tobacco Use Types Packs/Day Years Used Date Former Smoker Cigarettes 1.5 50 Quit: 06/27/2008 Smokeless Tobacco: Never Used Alcohol Use Drinks/Week oz/Week Comments Yes 4 Cans of 2.4 beer Sex Assigned at Date Recorded Not on file as of this encounter OR Notes * Anesthesia Postprocedure Evaluation - Adan Casarez MD - 07/18/2018 12:11 AM CDT Post-Anesthesia Evaluation Name: Yeimy Lima : 1945 Age: 73 y.o. Sex: female Procedure Date: 07/17/2018 Procedure: Procedure(s) with comments: CERVICAL LYMPHADENECTOMY - CASE LENGTH 8 HOURS GLOSSECTOMY/ HEMIGLOSSECTOMY TISSUE TRANSFER FREE FASCIAL FLAP WITH MICROVASCULAR ANASTOMOSIS - FOREARM TISSUE TRANSFER FREE FASCIAL FLAP WITH MICROVASCULAR ANASTOMOSIS TISSUE TRANSFER MUSCLE/ MYOCUTANEOUS/ FASCIOCUTANEOUS FLAP WITH VASCULAR PEDICLE - HEAD/ NECK PHARYNGOPLASTY Surgeon: Surgeon(s): J Luis Moore MD Kakarala, Kiran, MD Bur, Andres M, MD Bond, Justin, MD Bond, Justin, MD Bayrak, Sinehan, MD Bayrak, Sinehan, MD Bayrak, Sinehan, MD Bayrak, Sinehan, MD Bhojwani, Amit, MD Bhojwani, Amit, MD Bhojwani, Amit, MD Post-Anesthesia Vitals BP: 99/58 (07/17 2345) Pulse: 83 (07/17 2345) Respirations: 10 PER MINUTE (07/17 2345) SpO2: 100 % (07/17 2345) SpO2 Pulse: 82 (07/17 2345) Post Anesthesia Evaluation Note Evaluation location: ICU Patient participation: patient intubated, unable to assess; expectation of recovery by ICU physician Level of consciousness: intubated & sedated Ventilator settings Mode: spont FIO2: Tidal Volume: Vent rate: PEEP: Pain score: Pain scale: unable to assess d/t sedated state. Pain management: adequate Hydration: normovolemia Temperature: 36.0C - 38.4C Airway patency: adequate Perioperative Events Perioperative events: no Post-op nausea and vomiting: no PONV Postoperative Status Cardiovascular status: hemodynamically stable Respiratory status: spontaneous ventilation Follow-up needed: none Additional comments: Ventilator settings: N/A Vasoactive Drips: N/A Blood products/Hemostatic Agents/Anticoagulants: N/A Special Considerations: NSICU patient. Patient was transported with supplemental oxygen and routine cardiovascular monitoring, including pulse oximetry. Individuals present during transport include residential interior designer, anesthesia staff, surgical residents. The patient was admitted to the ICU under care of the critical care team. This information was communicated between anesthesia and the receiving team. ICU Information Staff involved in transport include: anesthesiologist, surg resident and anes resident Perioperative Events Perioperative Event: No Emergency Case Activation: No Cardiovascular: sustained hypotension (BP < 20% baseline) * Anesthesia Procedure Notes - Reddy Yadav MD - 07/17/2018 9:08 AM CDT Associated Order(s): ANESTHESIA ARTERIAL LINE INSERTION Anesthesia Procedure: Arterial Line Placement A-LINE INSERTION [...] Reddy Yadav MD Date: 07/17/2018 Performed by: KELLY MARTINEZ Authorized by: REDDY YADAV * Anesthesia Preprocedure Evaluation - Kelly Martinez MD - 07/17/2018 7: 51 AM CDT Formatting of this note may be different from the original. Anesthesia Pre-Procedure Evaluation Name: Yeimy Lima : 1945 Age: 73 y.o. Sex: female Procedure Date: 07/17/2018 Procedure: Procedure(s) with comments: CERVICAL LYMPHADENECTOMY GLOSSECTOMY/ HEMIGLOSSECTOMY TISSUE TRANSFER FREE FASCIAL FLAP WITH MICROVASCULAR ANASTOMOSIS - Forearm Physical Assessment Vital Signs (last filed in past 24 hours): BP: 140/58 (07/17 613) Temp: 36.6 C (97.9 F) (07/17 613) Pulse: 60 (07/17 613) Respirations: 16 PER MINUTE (07/17 613) SpO2: 98 % (07/17 613) O2 Delivery: None (Room Air) (07/17 613) Height: 144.8 cm (57") (07/17 613) Weight: 49.9 kg (110 lb) (07/17 613) Patient History Past Medical History: Diagnosis Date Acid reflux controlled with omeprazole Afib (HCC) Arthritis Hyperlipidemia Hypertension Oral cancer (HCC) Past Surgical History: Procedure Laterality Date HIP SURGERY Right 2007 3 surgeries 2/2 infection in joint area CARDIOVERSION 2008 BIOPSY 2017 tongue HX HIP SURGERY Right 2002, 2008 No Known Allergies Current Medications Medication Directions [...] tablet Take 10 mg by mouth daily. simvastatin (ZOCOR) 20 mg tablet Take 20 mg by mouth at bedtime daily. vitamins, multiple cap Take 1 capsule by mouth daily. warfarin (COUMADIN) 5 mg tablet Take 5 mg by mouth at bedtime daily. Review of Systems/Medical History Patient summary reviewed Nursing notes reviewed Pertinent labs reviewed PONV Screening: Female gender, Postoperative opioids and Non-smoker No history of anesthetic complications No family history of anesthetic complications Airway - negative Pulmonary Not a current smoker (quit 2007) No sleep apnea Cardiovascular Exercise tolerance: >4 METS (can do housework) Beta Fabiola therapy: Yes Beta blockers within 24 hours: No Hypertension, poorly controlled Valvular problems/murmurs (states mitral valve will eventually need to be replaced but unsure of diagnosis): MR No past [place], No palpitations Dysrhythmias (s/p failed cardioversion; anticoagulated); atrial fibrillation No DVT Hyperlipidemia (on statin) No orthopnea Dyspnea on exertion (heavy exertion) Follows with cards q 6 months GI/Hepatic/Renal GERD (on daily PPI), well controlled No hx of liver disease No renal disease Neuro/Psych No CVA No indications/hx of Parkinson's disease Musculoskeletal Neck pain Arthritis Endocrine/Other No diabetes No autoimmune disease Malignancy (oral cancer 2007 s/p resection; recurrance ) Physical Exam Airway Findings Mallampati: III TM distance: >3 FB Neck ROM: full Mouth opening: good Airway patency: adequate Dental Findings: Negative Cardiovascular Findings: Rhythm: irregular Rate: normal No murmur, no carotid bruit, no peripheral edema Comments: bradycardic Pulmonary Findings: Breath sounds clear to auscultation. Abdominal Findings: Abdomen soft Bowel sounds normal. Neurological Findings: Normal mental status Comments: alert and oriented Diagnostic Tests Hematology: Lab Results Component Value Date HGB 12.4 06/27/2018 HCT 37.3 06/27/2018 PLTCT 184 06/27/2018 WBC 5.3 06/27/2018 MCV 93.1 06/27/2018 MCH 30.8 06/27/2018 MCHC 33.1 06/27/2018 MPV 7.2 06/27/2018 RDW 16.5 06/27/2018 General Chemistry: Lab Results Component Value Date NA 126 06/27/2018 K 4.3 06/27/2018 CL 94 06/27/2018 CO2 25 06/27/2018 GAP 7 06/27/2018 BUN 10 06/27/2018 CR 0.73 06/27/2018 GLU 105 06/27/2018 CA 9.5 06/27/2018 Coagulation: No results found for: PT, PTT, INR Anesthesia Plan ASA score: 3 Plan: general NPO status: acceptable Informed Consent Anesthetic plan and risks discussed with patient. Use of blood products discussed with patient Blood Consent: consented Plan discussed with: anesthesiologist. EKG: a fib; LVH Addendum: Na was 129 on 07/04. Ranges between 130-136 earlier in year. echo 2016 showed EF 60%, MR,TR, AR ( trivial/mild) AV sclerosis without stenosis Stress test 02/2017 no evidence of ischemia or infarction, normal regional wall motion, in this encounter Plan of Treatment Not on fileas of this encounter Results * ANESTHESIA ARTERIAL LINE INSERTION (07/17/2018 9:08 [...] Staff name:Reddy Yadav MD Date:07/17/2018 Performed by: KELLY MARTINEZ Authorized by: REDDY YADAV Procedure Note Reddy [...] Reddy Yadav MD Date: 07/17/2018 Performed by: KELLY MARTINEZ Authorized by: REDDY YADAV in this encounter Visit Diagnoses Not on filein this encounter Administered Medications Medication Order MAR Action Action Date Dose Rate Site acetaminophen (OFIRMEV) injection Given 07/17/2018 1,000 mg Administer over 15 Minutes, 21:42 CDT INTRA-PROCEDURE MED, Starting 07/17/18 at 2142, Until 07/17/18 at 2303, Pain non-opioid: may be used alone or in combination with opioid analgesia, Anesthesia Intra-op albumin 5% infusion (500 mL) Given - New 07/17/2018 INTRA-PROCEDURE MED(CONT), Starting Mon Bag 10:06 CDT 07/17/18 at 1006, Until Discontinued, Anesthesia Intra-op Given - New Bag 07/17/2018 11:16 CDT ampicillin/sulbactam (UNASYN) 3 g in Bolus 07/17/2018 3 g sodium chloride 0.9% (NS) 100 mL IVPB 12:58 CDT (MB+) 100 mL, Administer over 60 Minutes, INTRA-PROCEDURE MED(CONT), Starting 07/17/18 at 0843, Until Discontinued, Anesthesia Intra-op Bolus 07/17/2018 1.5 g 14:58 CDT Bolus 07/17/2018 1.5 g 17:25 CDT dexamethasone (DECADRON) injection Given 07/17/2018 4 mg Intravenous, INTRA-PROCEDURE MED, 09:05 CDT Starting 07/17/18 at 0905, Until Discontinued, Nausea/Vomiting Injectable, Anesthesia Intra-op dextran 70/hypromellose (GENTEAL TEARS; Given 07/17/2018 2 drops BION TEARS) ophthalmic solution 08:18 CDT INTRA-PROCEDURE MED, Starting 07/17/18 at 0818, Until Discontinued, Dry Eyes, Anesthesia Intra-op electrolyte-A (PLASMA-LYTE A PH 7.4) Given - New 07/17/2018 injection Bag 08:23 CDT INTRA-PROCEDURE MED(CONT), Starting 07/17/18 at 0823, Until Discontinued, Anesthesia Intra-op Given - New Bag 07/17/2018 17:39 CDT ePHEDrine 50 mg/mL 50 mg in sodium Bolus 07/17/2018 5 mg chloride PF 0.9% 5 mL IV syringe 14:35 CDT 5 mL, INTRA-PROCEDURE MED(CONT), Starting 07/17/18 at 0909, Until Discontinued, Anesthesia Intra-op Bolus 07/17/2018 5 mg 14:39 CDT Bolus 07/17/2018 5 mg 21:46 CDT fentaNYL citrate PF (SUBLIMAZE) Given 07/17/2018 50 mcg injection 16:25 CDT INTRA-PROCEDURE MED, Starting 07/17/18 at 0815, Until Discontinued, Pain Injectable, Anesthesia Intra-op Given 07/17/2018 50 mcg 19:31 CDT Given 07/17/2018 50 mcg 20:06 CDT HYDROmorphone (DILAUDID) injection Given 07/17/2018 0.5 mg INTRA-PROCEDURE MED, Starting Tue 21:33 CDT 07/17/18 at 2133, Until Discontinued, Pain Injectable, Anesthesia Intra-op Given 07/17/2018 0.5 mg 22:24 CDT Given 07/17/2018 0.5 mg 22:29 CDT lactated ringers infusion Given - New 07/17/2018 1,000 mL 20 mL/hr 1,000 mL, 1,000 mL, Intravenous, at 20 Bag 06:14 CDT mL/hr, CONTINUOUS, Starting 07/17/18 at 0600, Until 07/17/18 at 2223, Pre-Op Given - New Bag 07/17/2018 17:39 CDT lidocaine (PF) injection Given 07/17/2018 80 mg INTRA-PROCEDURE MED, Starting Tue 08:15 CDT 07/17/18 at 0815, Until Discontinued, Anesthesia Intra-op methadone(#) (DOLOPHINE) injection 20 mg Given 07/17/2018 20 mg 20 mg, Intravenous, ONCE IN OR, 1 dose, 08:23 CDT 07/17/18 at 0815 midazolam (VERSED) injection Given 07/17/2018 1 mg INTRA-PROCEDURE MED, Starting Tue 12:26 CDT 07/17/18 at 1226, Until Discontinued, Agitation Injectable, Anxiety Injectable, Anesthesia Intra-op Given 07/17/2018 1 mg 12:55 CDT Given 07/17/2018 1 mg 22:34 CDT ondansetron (ZOFRAN) injection Given 07/17/2018 4 mg Intravenous, INTRA-PROCEDURE MED, 21:55 CDT Starting 07/17/18 at 2155, Until e 07/17/18 at 2303, Nausea/Vomiting Injectable, Anesthesia Intra-op phenylephrine in NS injection syringe Given 07/17/2018 100 mcg Intravenous, INTRA-PROCEDURE MED, 17:42 CDT Starting 07/17/18 at 1742, Until Discontinued, Symptomatic Hypotension, Anesthesia Intra-op propofol (DIPRIVAN) injection Given 07/17/2018 100 mg INTRA-PROCEDURE MED, Starting Tue 08:15 CDT 07/17/18 at 0815, Until Discontinued, Anesthesia Intra-op Given 07/17/2018 30 mg 08:57 CDT rocuronium (ZEMURON) injection Given 07/17/2018 5 mg Intravenous, INTRA-PROCEDURE MED, 18:35 CDT Starting 07/17/18 at 0816, Until Discontinued, Anesthesia Intra-op Given 07/17/2018 15 mg 19:01 CDT Given 07/17/2018 10 mg 20:01 CDT sugammadex (BRIDION) injection Given 07/17/2018 100 mg Intravenous, INTRA-PROCEDURE MED, 22:17 CDT Starting 07/17/18 at 2217, Until 07/17/18 at 2303, Anesthesia Intra-op vasopressin (VASOSTRICT) injection Given 07/17/2018 1 Units INTRA-PROCEDURE MED, Starting Tue 10:06 CDT 07/17/18 at 1006, Until Discontinued, Anesthesia Intra-op Given 07/17/2018 1 Units 13:10 CDT in this encounter
--- OUTSIDE RECORDS SUMMARY | 2018-08-20 08:38 | XMS REPORT | Encounter Summary ---
Author Author [facility] Organization [facility] Address Unknown Phone Unavailable Care Team Providers Care Grants And Contracts Assistant Name Role Phone Hyacinth Arias DO PCP Reason for Visit * Auth/Cert Status Reason Specialty Diagnoses / Referred By Referred To Procedures Contact Contact Diagnoses Oral cancer (HCC) Oral cancer (HCC) [C06.9] P rocedures [place] CERVICAL LYMPHADEC MODIFIED RADICAL NECK DSJ [place] GLOSSECTOMY HEMIGLOSSECTOMY [place] FREE FASCIAL FLAP W/MICROVASCULAR ANASTOMOSIS CERVICAL LYMPHADENECTOMY GLOSSECTOMY/ HEMIGLOSSECTOMY TISSUE TRANSFER FREE FASCIAL FLAP WITH MICROVASCULAR ANASTOMOSIS Encounter Details Date Type Department Care Team Description 07/17/2018 Surgery CA Operating Room J Luis Flores MD CERVICAL LYMPHADENECTOMY [address] [facility] [address] [place] [address] [place] [address] [place], [place] [id number] Social History Tobacco Use Types Packs/Day Years [...] status and/or prior pathology. Pursuant to the [place] Worker Program at the [facility] Pathology Department, selected slides from this [...] or concerns regarding your hospital stay. Call [phone] Discharging attending physician: ABDI ALEXANDRE [[id number]] Tube Feeding 1 carton (250 mL) Isosource [...] hours and as needed to minimize secretions. Jesup alkalol to the stoma every two hours [...] Other resources on tracheostomy care: Go to www.[employer]li[employer] website. Click on "Living with a Ventilator" [...] questions not during office hours please call [phone] and ask for the ENT Resident tax services professional. Home Health to draw INR on 07/26 [...] Mon and Fri 7.5mg on Sun, Mon, Tues, Thur, Sat PRESCRIPTION TYPE: Historical Med The following medications were removed from your list. This list includes medications discontinued this stay and those removed from your prior med list in our system HYDROcodone/acetaminophen (NORCO) 5/325 mg tablet Scheduled appointments: Jul 31, 2018 10:00 AM CDT Post - Op with Adithya Cook PA-C [facility] - ENT (P ENT) [facility] Level [address] [place] [phone] Pending items needing follow up: Follow up ENT clinic Signed: SUMMER Aaron 07/29/2018 cc: Primary Care Physician: Hyacinth Arias Verified Referring physicians: Arnoldo Olivares MD Additional provider(s): in this encounter Discharge Instructions * Discharge Instr - Case Management - Nalini Green - 07/23/2018 4:44 PM CDT Your home health agency is: [facility] P: [phone] F: [phone] and INR to be drawn by agency on and reported to Via Susan Watermelon Harvesting Supervisor Dr Salvador Zamarripa P: [phone] F: [phone]. Durable Medical Equipment: portable suction to be provided by [facility] (delivered to bedside prior to discharge) and home delivery of heated humidification and PEG tube feeds, (delivered to the home, same day as discharge) P: [phone] F: [phone] Pt verbalized understanding that medical appointments cannot [...] for problems or concerns related to the procedure,[phone] for Monday-Monday 7-5. After-hours and weekends, please [phone] and ask for the Interventional Industrial Gas Production Operator on-call. in this encounter Medications at Time [...] squamous cell carcinoma. Therapist: Tashia Avery MA, L/CCC-PAPERHANGER AND PAINTER Voalte: [phone] Date: 07/24/2018 * Marisol Cruz, RN - [...] BSN, CWON Wound/Ostomy Nursing Consult Service Office: [phone] Pager: [phone] Wound/Ostomy Team Pager (After Hours/Weekends): [phone] * Yazmin Ryan, LEGAL ARCHIVIST-FOIL WRAPPER - 07/24/2018 10:04 AM CDT Formatting of [...] (Last 24 hours) Glucose: (!) 110 (07/24/18 3353) Radiology and other Diagnostics Review: Final Diagnosis: [...] status and/or prior pathology. Pursuant to the [place] Worker Program at the [facility] Pathology Department, selected slides from this [...] INR- 1.1 To follow up with home Watermelon Harvesting Supervisor to manage home Warfarin. Next draw as outpt. ID: Afebrile, 6.7 no leukocytosis, completed ppx FEN/GI: Gtube in place tolerating bolus TF Dietary following. SLIV. On bowel regimen. LBM- 07/23 : UOP adequate Voiding spontaneously PPX: SQH , SCD's, completed ppx abx DISP: Discharge home today with HH services. Follow up ENT clinic. Yazmin Ryan APRN Pager [phone] * Arnoldo Napoles - 07/23/2018 6:59 PM CDT Pharmacy Warfarin Teaching Yeimy Clarence was provided with both verbal and written [...] Next Visit: test balance/ ensure gait at basline. RECOMMENDATIONS: PT Discharge Recommendations PT Discharge Recommendations: Home with Assistance Equipment Recommendations: None Therapist: Kyung Gallegos, PT Date: 07/23/2018 * Yazmin Ryan, LEGAL ARCHIVIST-FOIL WRAPPER - 07/23/2018 10:19 AM CDT Formatting of [...] status and/or prior pathology. Pursuant to the [place] Worker Program at the [facility] Pathology Department, selected slides from this case have been concurrently reviewed by the following pathologist: Dr. Dowsn, who agrees with the final diagnosis. Problem [...] in am 07/24 Yazmin Ryan APRN Pager [phone] * Cheri Peoples, OT - 07/23/2018 10:11 AM CDT Formatting of this note may be different from the original. OCCUPATIONAL THERAPY ASSESSMENT NOTE Patient Name: Yeimy Lima Room/Bed: [place] [address] Admitting Diagnosis: Oral cancer (HCC) [C06.9] Past [...] Home Equipment: Walker;Cane Prior Function Level Of Murray: Independent with ADLs and functional transfers; Independent with homemaking w/ ambulation Lives With: Spouse Receives Help From: None Needed Homemaking Tasks: Meal Prep;Laundry;Driving Vocational: Retired Other Function Comments: Patient reports she is independent with basic ADLs and IADLs. Spouse is available to provide 15/05 supervision and grandson is RN and assisting [...] and clinical judgment. Therapist: DUNIA Norton/Mary Ann [id number] Date: 07/23/2018 * Maura Barnes - 07/23/2018 8:31 AM CDT CLINICAL NUTRITION Clinical Nutrition Follow-Up Summary NAME:Yeimy Lima :1945 AGE: 73 y.o. ADMISSION DATE: 07/17/2018 DAYS ADMITTED: LOS: 6 days Nutrition Assessment of Patient: Malnutrition Assessment: Does not meet criteria Current Oral Intake: NPO Estimated Calorie Needs: 5272-1911 (30-35 kcal/kg admit wt) Estimated Protein Needs: [...] Not met;Ongoing Leann Barnes RD, LD Pager: [phone] * Nichole Morales - 07/22/2018 10:33 AM [...] 07/20/2018 11:15 AM CDT Pt transferred to [facility] with two RNs via bed with family and belongings. Pt tolerated travel well. Handoff/safety check compete with SANTI Donald. * ConnorYazmin Harrison, LEGAL ARCHIVIST-FOIL WRAPPER - 07/20/2018 8:26 AM CDT Formatting of [...] tablet 1 tablet Per NG tube QDAY [Dec] docusate (COLACE) oral solution 100 mg 100 mg Per NG tube BID [DEC Hold] folic acid (FOLVITE) tablet 1 mg 1 mg Oral QDAY [DEC Hold] lidocaine (LIDODERM) 5 % topical patch 1 patch 1 patch Topical QDAY [Dec] lisinopril (PRINIVIL; ZESTRIL) tablet 10 mg 10 [...] 20,000 Units/ sodium bicarbonate 650 mg(#) PRN ([employer] Teacher from Rx) Objective Vital Signs: Last Filed [...] / .7 Continue to monitor daily cbc. ID: Afebrile, no leukocytosis, on ABX PPX (IV Unasyn) FEN/GI: Has been tolerating bolus TF. Dietary following. SLIV. NPO for IR Gtube today 07/20. IV fluids while NPO. On bowel regimen. LBM- 07/19. : UOP adequate Voiding spontaneously PPX: SQH last dose 2200, SCD's, IV Unasyn DISP:-Downgrade to tele status. continue visual flap checks. Yazmin Ryan APRN Pager [phone] * Dior Molina RN - 07/19/2018 1:57 [...] physician according to patient. * Yazmin Ryan, CONSTANTINO-FOIL WRAPPER - 07/19/2018 7:26 AM CDT Formatting of [...] 20,000 Units/ sodium bicarbonate 650 mg(#) PRN ([employer] Teacher from Rx) Objective Vital Signs: Last Filed [...] after Gtube placement in am. Yazmin Ryan LEGAL ARCHIVIST Pager [phone] Associated attestation - Abdi Alexandre MD - [...] OR with two RNs. Handoff complete with FINANCIAL INSTITUTION PRESIDENT/Anesthesia. Consent in chart. 1100 Pt returned to [...] CDT Reason for [facility]: [facility] editor, Rosario/Sikh: Episcopal, Source of Purpose/Meaning: Post surgical recovery, pt [...] and provide intervention as indicated. Therapist: Clau Sandoval PT Date: 07/18/2018 * Christian House MD [...] C (98.5 F) (07/18 0400) Pulse: 73 (09/26 0700) Respirations: 17 PER MINUTE (07/18 700) [...] Date 07/17/18700 - 07/18/1869907/18/18700 - 07/19/18699 Shift 0022-4649 8322-1118 24 Hour Total 0953-0771 8941-2554 24 Hour Total I N T A K E I.V. (mL/kg/hr) 3000 (5) 2150 (3.5) 5150 (4.1) Other 100 100 Shift Total (mL/kg) 3000 (60.1) 2250 (43.4) 5250 (101.2) O U T P U T Urine (mL/kg/hr) 1400 (2.3) 440 (0.7) 1840 (1.5) Urine 1016 623 1694 Urine Output (ml) (Indwelling Urinary Catheter 07/17/18 0825 16 FR) 230 230 Drains 533 533 Drain Output (ml) (Rahul Sanches Drain 07/17/18 1315 Left;Lower Arm #1) 5 5 Drain Output (ml) (Rahul Sanches Drain 07/17/182026 Left Chest #2) 105 105 Drain Output (ml) (Rahul Sanches Drain 07/17/182027 Left Chest #3) 100 100 Drain Output (ml) (Rahul Sanches Drain 09/25/18 2038 Right Neck #4) 63 63 Drain Output (ml) (Rahul Sanches Drain 07/17/18 2139 Left Neck #5) 260 260 Other 450 [...] evaluation. Christian House MD Otolaryngology Resident, PGY-2 5000 For routine questions during weekday business hours, please page Yazmin Connor at [phone]. All other questions and on weekends and nights ([phone]) page ENT tax services professional at [phone]. Associated attestation - Abdi Alexandre [...] overnight , next check at 2:00AM. Addendum (0230) Patient asleep on exam. Patient's vitals remain [...] performed by J Luis Flores MD at [facility] OR/Periop GLOSSECTOMY Left 07/17/2018 GLOSSECTOMY/ HEMIGLOSSECTOMY performed by J Lusi Flores MD at [facility] OR/Periop TISSUE TRANSFER Left 07/17/2018 TISSUE TRANSFER FREE FASCIAL FLAP WITH MICROVASCULAR ANASTOMOSIS performed by J Luis Flores MD at [facility] OR/Periop TISSUE TRANSFER 07/17/2018 TISSUE TRANSFER FREE FASCIAL FLAP WITH MICROVASCULAR ANASTOMOSIS performed by Abdi Alexandre MD at [facility] OR/Periop TISSUE GRAFT Left 07/17/2018 TISSUE TRANSFER MUSCLE/ MYOCUTANEOUS/ FASCIOCUTANEOUS FLAP WITH VASCULAR PEDICLE - HEAD/ NECK performed by Abdi Alexandre MD at [facility] OR/Periop EXPLORATION WOUND N/A 07/18/2018 EXPLORATION POSTOPERATIVE WOUND - NECK performed by Abdi Alexandre MD at [facility] OR/ Periop BIOPSY 2017 tongue [...] Pertinent labs reviewed Rafaela Parekh APRN Pager [phone] * Eddie Daniels MD - 07/17/2018 7:20 [...] Otolaryngology-Head and Neck Surgery Clinic at the [facility] The patient was referred by Dr. Olivares [...] None 07/19/2018 11:45 AM Wound Base Assessment Moist;[place] 07/19/2018 11:45 AM Surrounding Skin Assessment Dry;Intact [...] BSN, CWON Wound/Ostomy Nursing Consult Service Office: [phone] Pager: [phone] Wound/Ostomy Team Pager (After Hours/Weekends): [phone] * Georgia Mcgill RD - 07/18/2018 4:00 PM CDT Associated Order(s): CONSULT DIETITIAN CLINICAL NUTRITION Clinical Nutrition Assessment Summary NAME:Yeimy Lima :1945 AGE: 73 y.o. ADMISSION DATE: 07/17/2018 DAYS ADMITTED: LOS: 1 day Nutrition Assessment of Patient: BMI Categories Adult: Acceptable: 18.5-24.9 Malnutrition Assessment: Does not meet criteria Current Oral Intake: NPO Estimated Calorie Needs: 8235-1197 (30-35 kcal/kg admit wt) Estimated Protein Needs: [...] unintentional loss (not significant) x 6 weeks TECHNICAL SUPPORT DIRECTOR. Was still able to eat soft foods including fish/beans, yogurt and vegetables TECHNICAL SUPPORT DIRECTOR just smaller amounts than before. Does not [...] 7 days Todays Date: 07/24/2018 Plan NCM notified by [facility] Susan dickinson that portable suction was not delivered to her for bedside delivery and she has other obligations today and works tomorrow. Jasmyn states pt would likely have delayed d/c. NCM suggesting a loaner suction and pt d/c home and get ALL equipment through branch office. [place] coordinating with Jaylyn [employer] [facility] [phone] and Jeri Pandya/Celine and Loaner sxn approved for delivery. LEGAL ARCHIVIST notified. Pt able to d/c home safely [...] for the patient. Jaimie Green RN Nurse Boat Outfitting Supervisor * Case Mgmt DC Plan - Nalini Green - 07/24/2018 9:53 AM CDT Formatting of this note may be different from the original. Case Management Progress Note NAME:Yeimy Lima :1944 AGE: 73 y.o. ADMISSION DATE: 07/17/2018 DAYS ADMITTED: LOS: 7 days Todays Date: 07/24/2018 Plan NCM discussing d/c planning with LEGAL ARCHIVIST/SW in huddle. Pt to leave after bedside portable suction delivered, Rad Onc consult occurs. NCM to pt bedside to answer d/c questions, pt directed to call VISUAL MERCHANDISING ASSOCIATE and DME when driving away from hospital to alert them of home arrival to accept DME. [facility] notifying all provider/agencies of d/c today. [facility] sent faxed, signed orders to VISUAL MERCHANDISING ASSOCIATE, DME provider and Watermelon Harvesting Supervisor following INR. [facility] P: [phone] F: [phone] and INR to be drawn by agency on and reported to Via [facility] Watermelon Harvesting Supervisor Dr Salvador Zamarripa P: [phone] F: [phone]. Durable Medical Equipment: portable suction to be provided by [facility] (delivered to bedside prior to discharge) and home delivery of heated humidification and PEG tube feeds, (delivered to the home, same day as discharge) P: [phone] F: [phone] Pt verbalized understanding that medical appointments cannot occur on same day as physician appointments. [facility] sent task to [facility] to fax all physician, VISUAL MERCHANDISING ASSOCIATE and DME providers AVS TODAY post d/c. [...] for the patient. Jaimie Green RN Nurse Boat Outfitting Supervisor * Care Plan - Cassie Chris RN [...] discussing d/c planning and confirming they want VISUAL MERCHANDISING ASSOCIATE of: [facility] P: [phone] F: [phone] Pt/spouse confirm and NCM educated that agency has confirmed acceptance NCM discussing DME and family requesting assist in finding DME provider in [facility] through NCM assist. NCM coordinating d/c planning through pt Watermelon Harvesting Supervisor upon d/c Dr Salvador Zamarripa P: [phone] F: [phone] NCM to request VISUAL MERCHANDISING ASSOCIATE do first INR on post d/ c on Monday. Patient Address/Phone [address] [phone] (home) Emergency Contact Extended Emergency Contact Information Primary Emergency Contact: Chance Molina [facility] Mobile Relation: Spouse Healthcare Directive Healthcare Directive: Yes, patient has a healthcare directive Type of Healthcare Directive: Durable power of puff ironer for healthcare, Healthcare directive Location of Healthcare [...] PCP Hyacinth Arias, , None ? Pharmacy [facility] #[id number] [facility] [address] [place] [address] [address] [facility] [address] ? Durable Medical Equipment ? Home Health Receiving home health: In the past Agency name: [facility] P: [phone] F: [phone] Would patient use this agency again?: Yes ? Hemodialysis or Peritoneal Dialysis Undergoing hemodialysis or peritoneal dialysis: No ? Tube/Enteral Feeds Receive tube/enteral feeds: No ? Infusion Receive infusions: No ? Private Duty Private duty help used: No ? Home and Community Based Services ? Matt Bajwa: N/A ? Hospice Hospice: No ? Outpatient Therapy ? Penitentiary Facility/Assisted SNF: No NH: No ? Inpatient Rehab ? Long-Term Acute Care Hospital ? Acute Hospital Stay Acute Hospital Stay: No Jaimie Green RN Nurse Boat Outfitting Supervisor Case Management Progress Note NAME:Yeimy Lima :1944 AGE: 73 y.o. ADMISSION DATE: 07/17/2018 DAYS ADMITTED: LOS: 6 days Todays Date: 07/23/2018 Plan Pt to d/c home tomorrow with VISUAL MERCHANDISING ASSOCIATE: [facility] P: [phone] F: [phone] and INR to be drawn by agency on and reported to Via Susan Watermelon Harvesting Supervisor Dr Salvador Zamarripa P: [phone] F: [phone]. DME, portable suction to be provided by [facility], and home delivery of heated humidification and PEG tube deeds P: [phone] F: [phone] Pt verbalized understanding that medical appointments cannot [...] for the patient. Jaimie Green RN Nurse Boat Outfitting Supervisor * Care Plan - Stefany Arce RN [...] Procedure(s): G tube Pre/Post Diagnosis: Oral ca, director long term care feds Description/Findings: none Anesthesia: 2% lidocaine Time [...] 20,000 Units/ sodium bicarbonate 650 mg(#) PRN ([employer] Teacher from Rx) Diagnostic Tests Hematology: Lab Results [...] ICU - stable Leidy Waldron MD Pager [phone] Associated attestation - Abdi Alexandre MD - [...] Alexandre MD - 07/18/2018 9:40 AM CDT [address] [address] PATIENT NAME: YEIMY LIMA MR#/PT#: [id number] Page 2 OPERATIVE REPORT DATE OF OPERATION: 07/18/2018 SURGEON: Abdi Alexandre MD BAND TIER(S): Leidy Waldron MD. PREOPERATIVE DIAGNOSIS: 1. History [...] REMOVED: none MD MISSY Chaudhary / LORI /[id number] cc: - Abdi Alexandre MD * Procedures (Immed Post or Bedside) - J Luis lFores MD - 07/17/2018 10:41 AM CDT Formatting of this note may be different from the original. Brief Operative Note - Otolaryngology-Head and Neck Surgery Pre-Operative Diagnosis: oral cancer Post-Operative Diagnosis: same Procedure(s): left hemiglossectomy Bilateral modified radical neck dissection tracheostomy Surgeon(s): Oscar Ductfixing Plumber Surgeon(s): Layo Daniels Estimated Blood Loss: 250 [...] Cavity SURGICAL PATHOLOGY J Luis Flores MD 07/17/201804 4 : posterior floor of mouth mm [...] MD 07/17/2018 1021 Eddie Daniels MD Pager [phone] * Operative Report (DICTATED ONLY) - Abdi Alexandre MD - 07/17/2018 8:46 AM CDT THE [address] [address] PATIENT NAME: YEIMY LIMA MR#/PT#: [id number] Page 2 OPERATIVE REPORT DATE OF OPERATION: [...] venous system was connected using a 3.5 curb hop. The vascular clamps were let down. Visually [...] SPECIMENS REMOVED: none MD MISSY Chaudhary / MEDIna /[id number] cc: - Abdi Alexandre MD - Rod [...] in the results section. TRANSFUSE RBC'S Routine 07/18/2018 NON-BLEEDING PT 8:09 [...] LAB RANGES Specimen Blood Performing Organization Address [facility] Phone Number [facility] [address] [place] [address] * MAGNESIUM (07/24/2018 5:41 AM) Magnesium 1.8 1.6 - 2.6 mg/dL [facility] Specimen Blood Performing Organization Address [facility] Cliniccoar Phone Number [facility] [address] [place] [address] * BASIC METABOLIC PANEL (07/24/2018 5:41 AM) [...] MAIN LAB eGFR Non >60 >60 mL/min MAIN LAB Comment: The [...] for questions. Specimen Blood Performing Organization Address City/[facility] Phone Number [facility] LAB [address] [place] [address] * PROTIME INR (PT) (07/24/2018 5:41 AM) INR 1.1 0.8 - 1.2 [facility] Specimen Blood Performing Organization Address [facility] Phone Number [facility] [address] [place] [address] * PROTIME INR (PT) (07/23/2018 4:19 AM) INR 1.1 0.8 - 1.2 [facility] Specimen Blood Performing Organization Address [facility] Phone Number MA[facility] LAB [address] [place] [address] * PROTIME INR (PT) (07/22/2018 5:19 AM) INR 1.0 0.8 - 1.2 [facility]IN LAB Specimen Blood Performing Organization Address [facility] Phone Number MAIN LAB [address] [place] [address] * PHOSPHORUS (07/22/2018 5:19 AM) Phosphorus 3.5Comment: NOTE NEW REFERENCE 2.0 - 4.5 MG/DL [facility] RANGES Specimen Blood Performing Organization Address [facility] Phone Number MA[facility] [address] [place] [address] * MAGNESIUM (07/22/2018 5:19 AM) Magnesium 2.0 1.6 - 2.6 mg/dL MAIN LAB Specimen Blood Performing Organization Address [facility] Phone Number [facility] [address] [place] [address] * CBC (07/22/2018 5:19 AM) White Blood Cells 6.7 4.5 - 11.0 K/UL MAIN LAB RBC 2.90 (L) 4.0 - 5.0 M/UL [facility] Hemoglobin 9.3 (L) 12.0 - 15.0 GM/DL [facility] Hematocrit 27.0 (L) 36 - 45 % MAIN LAB MCV 93.0 80 - 100 FL [facility] MCH 32.0 26 - 34 PG [facility] MCHC 34.4 32.0 - 36.0 G/DL [facility] RDW 16.4 (H) 11 - 15 % MAIN LAB Platelet Count 204 150 - 400 K/UL [facility] MPV 6.6 (L) 7 - 11 FL [facility] Specimen Blood Performing Organization Address City/[facility] Phone Number [facility] [address] [place] [address] * BASIC METABOLIC PANEL (07/22/2018 5:19 AM) Sodium 134 (L) 137 - 147 MMOL/L [facility]IN LAB Potassium 3.6 3.5 - 5.1 MMOL/L MAIN LAB Chloride 99 98 - 110 MMOL/L MAIN LAB CO2 27 21 - 30 MMOL/L [facility] Anion Gap 8 3 - 12 MAIN LAB Glucose 107 (H) 70 - 100 MG/DL [facility]IN [facility] Blood Urea Nitrogen 12 7 - 25 MG/DL [facility] Creatinine 0.64 0.4 - 1.00 MG/DL [facility] Calcium 8.6 8.5 - 10.6 MG/DL MAIN LAB eGFR Non >60 >60 mL/min MAIN LAB Comment: The eGFR is not validated for use in drug dosing adjustments.Continue to use estimated creatinine clearance per dosing reference text.Please contact the Clinical Pharmacist for questions. eGFR >60 >60 mL/min [facility] Comment: The eGFR is not validated for use in drug dosing adjustments.Continue to use estimated creatinine clearance per dosing reference text.Please contact the Clinical Pharmacist for questions. Specimen Blood Performing Organization Address City/[facility]/Zipcode Phone Number [facility] [address] [place] [address] * PROTIME INR (PT) (07/21/2018 11:29 AM) INR 1.0 0.8 - 1.2 [facility] Specimen Blood Performing Organization Address City/[facility]/Zipcode Phone Number [facility] [address] [place] [address] * PHOSPHORUS (07/21/2018 5:32 AM) Phosphorus 3.0Comment: NOTE NEW REFERENCE 2.0 - 4.5 MG/DL [facility] RANGES Specimen Blood Performing Organization Address [facility]/Zipcode Phone Number MAIN LAB [address] [place] [address] * MAGNESIUM (07/21/2018 5:32 AM) Magnesium 1.8 1.6 - 2.6 mg/dL [facility] Specimen Blood Performing Organization Address [facility] Phone Number [facility] [address] [place] [address] * BASIC METABOLIC PANEL (07/21/2018 5:32 AM) [...] for questions. Specimen Blood Performing Organization Address [facility]/Zipcode Phone Number MAIN [facility] [address] [place] [address] * CBC (07/21/2018 5:32 AM) White Blood [...] Number [facility] [address] [place] [address] * IR GASTROSTOMY (07/20/2018 2:06 PM) Impressions [...] needle and curled in the stomach.A 14 Sudanese telescoping peel-away sheath was then placed over [...] and curled in the stomach. A 14 Sudanese telescoping peel-away sheath was then placed over [...] on 07/20/2018 2:17 PM. Performing Organization Address [facility] CliniccoBlackLine Systems Phone Number RAD RESULTS * PHOSPHORUS (07/20/2018 4:06 AM) Phosphorus 1.7 (L)Comment: NOTE NEW 2.0 - 4.5 MG/DL [facility] MAIN LAB REFERENCE RANGES Specimen Blood Performing Organization Address [facility]/[employer] Phone Number MAIN LAB [address] [place] [address] * MAGNESIUM (07/20/2018 4:06 AM) Magnesium 2.0 1.6 - 2.6 mg/dL [facility] MAIN LAB Specimen Blood Performing Organization Address [facility]/[employer] Phone Number MAIN LAB [address] [place] [address] * BASIC METABOLIC PANEL (07/20/2018 4:06 AM) Sodium 140 137 - 147 MMOL/L MAIN LAB Potassium 3.9 3.5 - 5.1 MMOL/L [facility] MAIN LAB Chloride 109 98 - 110 MMOL/L [facility] MAIN LAB CO2 25 21 - 30 MMOL/L [facility] MAIN LAB Anion Gap 6 3 - 12 [facility] MAIN LAB Glucose 122 (H) 70 - 100 MG/DL [facility] MAIN LAB Blood Urea Nitrogen 21 7 - 25 MG/DL MAIN LAB Creatinine 0.78 0.4 - 1.00 MG/DL MAIN LAB Calcium 8.4 (L) 8.5 - [...] Blood Performing Organization Address City/State/Zipcode Phone Number [facility] [address] [place] [address] * CBC (07/20/2018 4:06 AM) White Blood Cells 9.4 4.5 - 11.0 K/UL MAIN LAB RBC 2.76 (L) 4.0 - 5.0 M/UL [facility] Hemoglobin 8.7 (L) 12.0 - 15.0 GM/DL MAIN LAB Hematocrit 25.7 (L) 36 - 45 % MAIN LAB MCV 93.0 80 - 100 FL MAIN LAB MCH 31.6 26 - 34 PG [facility] MCHC 34.0 32.0 - 36.0 G/DL [facility] RDW 16.6 (H) 11 - 15 % MAIN LAB Platelet Count 151 150 - 400 K/UL MAIN LAB MPV 7.7 7 - 11 FL MAIN LAB Specimen Blood Performing Organization Address City/State/Zipcode Phone Number [facility] [address] [place] [address] * CBC (07/19/2018 11:41 AM) White Blood [...] MAIN LAB Specimen Blood Performing Organization Address City/[facility]/Zipcode Phone Number [facility] MAIN LAB [address] [place] [address] * PHOSPHORUS (07/19/2018 4:11 AM) Phosphorus 2.1Comment: NOTE NEW REFERENCE 2.0 - 4.5 MG/DL [facility] MAIN LAB RANGES Specimen Blood Performing Organization Address City/[facility] Phone Number MAIN LAB [address] [place] [address] * MAGNESIUM (07/19/2018 4:11 AM) Magnesium 2.1 1.6 - 2.6 mg/dL [facility] MAIN LAB Specimen Blood Performing Organization Address City/[facility] Phone Number [facility] MAIN LAB [address] [place] [address] * BASIC METABOLIC PANEL (07/19/2018 4:11 AM) [...] for questions. Specimen Blood Performing Organization Address City/[facility]/Zipcode Phone Number MAIN LAB [address] [place] [address] * CBC (07/19/2018 4:11 AM) White Blood [...] MAIN LAB Specimen Blood Performing Organization Address City/[facility] Phone Number [facility] MAIN LAB [address] [place] [phone] * PHOSPHORUS (07/18/2018 4:00 AM) Phosphorus 4.0Comment: NOTE NEW REFERENCE 2.0 - 4.5 MG/DL [facility] MAIN LAB RANGES Specimen Blood Performing Organization Address City/[facility]/Zipcode Phone Number MAIN LAB [address] [place] [address] * MAGNESIUM (07/18/2018 4:00 AM) Magnesium 1.4 (L) 1.6 - 2.6 mg/dL [facility] MAIN LAB Specimen Blood Performing Organization Address City/[facility]/Zipcode Phone Number MAIN LAB [address] [place] [address] * BASIC METABOLIC PANEL (07/18/2018 4:00 AM) [...] Blood Performing Organization Address City/State/Zipcode Phone Number [facility] [address] [place] [address] * CBC (07/18/2018 4:00 AM) White Blood Cells 8.7 4.5 - 11.0 K/UL MAIN LAB RBC 2.62 (L) 4.0 - 5.0 M/UL [facility] Hemoglobin 8.1 (L) 12.0 - 15.0 GM/DL [facility] Hematocrit 24.5 (L) 36 - 45 % MAIN LAB MCV 93.6 80 - 100 FL MAIN LAB MCH 31.1 26 - 34 PG [facility] MCHC 33.3 32.0 - 36.0 G/DL [facility] RDW 15.5 (H) 11 - 15 % MAIN LAB Platelet Count 153 150 - 400 K/UL MAIN LAB MPV 7.6 7 - 11 FL MAIN LAB Specimen Blood Performing Organization Address City/[facility]/Zipcode Phone Number [facility] [address] [place] [address] * CBC (07/18/2018 12:10 AM) White Blood Cells 7.4 4.5 - 11.0 K/UL MAIN LAB RBC 2.67 (L) 4.0 - 5.0 M/UL MAIN LAB Hemoglobin 8.3 (L) 12.0 - 15.0 GM/DL [facility] Hematocrit 24.8 (L) 36 - 45 [...] Address City/State/Zipcode Phone Number [facility] MAIN LAB [address] [place] [address] * ABDOMEN AP ONLY (07/17/2018 11:42 PM) [...] on 07/18/2018 8:42 AM. Performing Organization Address City/[facility]/Zipcode Phone Number RAD RESULTS * POTASSIUM, BG (07/17/2018 7:09 PM) Potassium 3.8 3.5 - 5.1 MMOL/L MAIN LAB Specimen Blood Performing Organization Address [facility] Phone Number MAIN LAB [address] [place] [address] * SODIUM,BG (07/17/2018 7:09 PM) Sodium 133 (L) 137 - 147 MMOL/L MAIN LAB Specimen Blood Performing Organization Address [facility]lin[facility] Phone Number MAIN LAB [address] [place] [address] * IONIZED CALCIUM,BG (07/17/2018 7:09 PM) Ionized Calcium 1.08 1.0 - 1.3 MMOL/L MAIN LAB Specimen Blood Performing Organization Address [facility] Phone Number MAIN LAB [address] [place] [address] * GLUCOSE,BG (07/17/2018 7:09 PM) Glucose 154 (H) 70 - 100 MG/DL MAIN LAB Specimen Blood Performing Organization Address [facility] Phone Number MAIN LAB [address] [place] [address] * BLOOD GASES, ARTERIAL (07/17/2018 7:09 PM) pH-Arterial 7.43 7.35 - 7.45 MAIN LAB pCO2-Arterial 32 (L) 35 - 45 MMHG MAIN LAB pO2-Arterial 172 (H) 80 - 100 MMHG MAIN LAB Base Deficit-Arterial 2.4 MMOL/L MAIN LAB O2 Sat-Arterial 99.1 (H) 95 - 99 % MAIN LAB Larwrfwlsbx-DFY-Jmb 22.4 21 - 28 MMOL/L K[facility] MAIN LAB Specimen Blood, arterial - Blood Performing Organization Address [facility] Phone Number MAIN LAB [address] [place] [address] * HEMOGLOBIN & HEMATOCRIT, BG (07/17/2018 7:09 PM) Hemoglobin BG 9.0 (L) 12.0 - 15.0 GM/DL MAIN LAB Hematocrit BG 27.8 (L) 36 - 45 % MAIN LAB Specimen Blood Performing Organization Address [facility] Phone Number MAIN LAB [address] [place] [phone] * POTASSIUM, BG (07/17/2018 3:58 PM) Potassium 3.7 3.5 - 5.1 MMOL/L MAIN LAB Specimen Blood Performing Organization Address [facility] Phone Number MAIN LAB [address] [place] [address] * SODIUM,BG (07/17/2018 3:58 PM) Sodium 131 (L) 137 - 147 MMOL/L MAIN LAB Specimen Blood Performing Organization Address [facility] Phone Number MAIN LAB [address] [place] [address] * IONIZED CALCIUM,BG (07/17/2018 3:58 PM) Ionized Calcium 1.09 1.0 - 1.3 MMOL/L MAIN LAB Specimen Blood Performing Organization Address [facility] Phone Number MAIN LAB [address] [place] [phone] * GLUCOSE,BG (07/17/2018 3:58 PM) Glucose 160 (H) 70 - 100 MG/DL MAIN LAB Specimen Blood Performing Organization Address [facility] Phone Number MAIN LAB [address] [place] [phone] * BLOOD GASES, ARTERIAL (07/17/2018 3:58 PM) pH-Arterial 7.43 7.35 - 7.45 MAIN LAB pCO2-Arterial 32 (L) 35 - 45 MMHG MAIN LAB pO2-Arterial 180 (H) 80 - 100 MMHG KU MAIN LAB Base Deficit-Arterial 2.4 MMOL/L MAIN LAB O2 Sat-Arterial 99.4 (H) 95 - 99 % MAIN LAB Kmhruhyayfy-SEL-Idb 22.4 21 - 28 MMOL/L MAIN LAB Specimen Blood, arterial - Blood Performing Organization Address [facility]/Zipcode Phone Number MAIN LAB [address] [place] [address] * HEMOGLOBIN & HEMATOCRIT, BG (07/17/2018 3:58 PM) Hemoglobin BG 9.1 (L) 12.0 - 15.0 GM/DL MAIN LAB Hematocrit BG 28.2 (L) 36 - 45 % MAIN LAB Specimen Blood Performing Organization Address [facility] Phone Number MAIN LAB [address] [place] [address] * SURGICAL PATHOLOGY (07/17/2018 9:13 AM) PATHOLOGY REPORT [facility] [email or web address] Department of Pathology and Laboratory Medicine [address] [place] [address] Surgical Pathology Office:[phone] :[phone] SURGICAL PATHOLOGY REPORT NAME: YEIMY LIMA SURG PATH #: [id number] MR #: [id number] SPECIMEN CLASS: [facility] BILLING #: [id number] ALT ID #:LOCATION: [facility] DATE OF PROCEDURE: 07/17/2018 AGE:73 SEX: [...] Pathologic Stage Classification (pTNM, AJCC 8th Edition): [id number]/ Note: Reporting of pT, pN, and (when [...] status and/or prior pathology. Pursuant to the [place] Work[facility] Program at the [facility] Pathology Department, selected slides from this [...] cassette A1FS for frozen and permanent sectioning. [facility] B. Received fresh labeled with the patient's name and "posterior dorsal tongue MM" is a 3.4 x 0.8 x 0.5 cm irregular piece of potts-pink tissue. The specimen is bisected and is entirely submitted in cassette B1FS for frozen and permanent sectioning. [facility] C. Received fresh labeled with the patient's name and "posterior floor mouth MM" is a 1.3 x 0.9 x 0.5 cm irregular piece of potts-pink tissue. The specimen is entirely submitted in cassette C1FS for frozen and permanent sectioning. [facility]) D. Received fresh labeled with the patient's name and "anterior floor mouth MM" is a 0.6 x 0.4 x 0.3 cm irregular piece of potts-pink tissue. The specimen is entirely submitted in cassette D1FS for frozen and permanent sectioning. [facility]) E. Received fresh labeled with the patient's name and "ventral tongue MM" is a 2.5 x 0.5 x 0.3 cm aggregate of potts-pink tissue. The specimen is entirely submitted in cassette E1FS for frozen and permanent sectioning. [facility]) F. Received fresh labeled with the patient's name and "deep margin" is a 0.5 x 0.5 x 0.4 cm irregular piece of potts-pink tissue. The specimen is entirely submitted in cassette F1FS for frozen and permanent sectioning. ([facility]) G. Received fresh, labeled with the patient's [...] slice bisected). G10 6:00 margin, serially sectioned. ([facility]) H. Received fresh labeled with the patient's [...] to 2.5 x 1.2 x 0.9 cm. technical sales representative sections of the specimen are submitted as follows: H1-H2 Grossly consistent submandibular gland. H3 One possible lymph node, submitted whole. H4 Two possible lymph nodes, bisected (one possible lymph node differentially inked black). H5-H6 One possible lymph node, serially sectioned. [facility] I. Received fresh labeled with the patient's [...] of fibroadipose tissue and possible lymph nodes. ([facility]) J. Received fresh labeled with the patient's [...] to 1.3 x 1.1 x 0.7 cm. Asphalt Layer sections of the specimen are submitted as follows: J1-J2 Grossly consistent submandibular gland. J3 Three possible lymph nodes, submitted whole. J4 One possible lymph node, bisected. J5 Fibroadipose tissue and possible lymph nodes submitted entirely. ([facility]) K. Received fresh labeled with the patient's [...] of fibroadipose tissue and possible lymph nodes. [facility]2018 Intraoperative Consultation: A1FS, squamous mucosa, "anterior dorsal [...] for malignancy. Frozen section performed at the [facility], [facility] A, [address] [place] [id number]. Alyssa Palencia MD Performing Organization Address City/State/Zipcode Phone Number LAB RESULTS * PTT (APTT) (07/17/2018 8:08 AM) APTT 22.6Comment: NOTE NEW 20.0 - 36.0 SEC MAIN LAB REFERENCE RANGES Specimen Blood Performing Organization Address [facility] Phone Number [facility] MAIN LAB [address] [place] [address] * PROTIME INR (PT) (07/17/2018 8:08 AM) INR 1.1 0.8 - 1.2 MAIN LAB Specimen Blood Performing Organization Address [facility] Phone Number [facility] MAIN LAB [address] [place] [address] * CBC AND DIFF (07/17/2018 8:08 AM) White Blood Cells 5.5 4.5 - 11.0 K/UL MAIN LAB RBC 3.79 (L) 4.0 - 5.0 M/UL MAIN LAB Hemoglobin 11.8 (L) 12.0 - 15.0 GM/DL MAIN LAB Hematocrit 35.2 (L) 36 - 45 % MAIN LAB MCV 92.8 80 - 100 [...] LAB Eosinophils 3 0 - 5 % MAIN LAB Basophils 1 0 - 2 % [facility] MAIN LAB Absolute Neutrophil Count 3.80 1.8 - 7.0 K/UL [facility] MAIN LAB Absolute Lymph Count 1.10 1.0 - 4.8 K/UL MAIN LAB Absolute Monocyte Count 0.40 0 - 0.80 K/UL MAIN LAB Absolute Eosinophil Count 0.20 0 - 0.45 K/UL [facility] MAIN LAB Absolute Basophil Count 0.00 0 - 0.20 K/UL MAIN LAB Specimen Blood Performing Organization Address [facility] Phone Number MAIN LAB [address] [place] [address] * BASIC METABOLIC PANEL (07/17/2018 7:31 AM) Sodium 129 (L) 137 - 147 MMOL/L MAIN LAB Potassium 4.1 3.5 - 5.1 [...] Organization Address City/State/Zipcode Phone Number MAIN LAB [address] [place] [address] * TYPE & CROSSMATCH (07/17/2018 7:31 AM) Units Ordered 3 [facility] MAIN LAB Crossmatch Expires 07/20/2018 [facility] MAIN LAB Record Check FOUND [facility] MAIN LAB ABO/RH(D) O POS [facility] MAIN LAB Antibody Screen NEG [facility] MAIN LAB Electronic Crossmatch YES [facility] MAIN LAB Unit Number [id number] MAIN LAB Blood Component Type RBC,ADSOL,LEUKO REDUCED MAIN LAB Unit Division 0 MAIN LAB Status OF Unit REL FROM ALLOC MAIN LAB Transfusion Status OK TO TRANSFUSE MAIN LAB Crossmatch Result COMPATIBLE,ELECTRONIC MAIN LAB Unit Number [id number] MAIN LAB Blood Component Type RBC,ADSOL,LEUKO REDUCED [facility] MAIN LAB Unit Division 0 MAIN LAB Status OF Unit REL FROM ALLOC MAIN LAB Transfusion Status OK TO TRANSFUSE MAIN LAB Crossmatch Result COMPATIBLE,ELECTRONIC MAIN LAB Unit Number [id number] MAIN LAB Blood Component Type RBC,ADSOL,LEUKO REDUCED MAIN LAB Unit Division 0 MAIN LAB Status OF Unit TRANSFUSED [facility] MAIN LAB Transfusion Status OK TO TRANSFUSE MAIN LAB Crossmatch Result COMPATIBLE,ELECTRONIC MAIN LAB Unit Number [id number] MAIN LAB Blood Component Type RBC,ADSOL,LEUKO REDUCED,2ND [facility] MAIN LAB CONT. Unit Division 0 KU MAIN LAB Status OF Unit REL FROM ALLOC [facility] MAIN LAB Transfusion Status OK TO TRANSFUSE [facility]U MAIN LAB Crossmatch Result COMPATIBLE,ELECTRONIC [facility] MAIN LAB Unit Number [id number] [facility] MAIN LAB Blood Component Type RBC,ADSOL,LEUKO REDUCED,2ND [facility] MAIN LAB CONT. 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, unspecified site Admitting Diagnoses Diagnosis Oral cancer [...] CDT Given 07/23/2018 100 mg 09:04 CDT EPINEPHrine syringe Given 07/17/2018 10 mL INTRA-PROCEDURE MED, Starting Tue 09:48 CDT 07/17/18 at 0948, Until 07/17/18 at 2252, Intra-op folic acid (FOLVITE) tablet 1 mg Given 07/22/2018 1 mg 1 mg, Oral, DAILY, First dose on Sat 08:48 CDT 07/21/18 at 0900, Until Discontinued, Start after banana bag completed Given 07/23/2018 1 mg 09:00 CDT Given 07/24/2018 1 mg 08:46 CDT glycerin topical solution Given 07/17/2018 50 mL INTRA-PROCEDURE MED, Starting Tue 09:49 CDT 07/17/18 at 0949, Until 07/17/18 at 2252, Intra-op heparin (porcine) 4,000 Units in sodium Given 07/17/2018 250 mL chloride 0.9% (NS) 250 mL irrigation bag 09:49 CDT 250 mL, INTRA-PROCEDURE MED, Starting 07/17/18 at 0949, Until 07/17/18 at 2252, Intra-op Given 07/17/2018 250 mL 13:37 CDT heparin (porcine) PF syringe 5,000 Units [...] RT NEEDED, Starting 07/21/18 at 0149, Until 07/24/18 at 1440, RT PROTOCOL, When administered by RT, will be per RT policy. lidocaine 1%/EPINEPHrine 1:100,000 Given 07/17/2018 10 mL Neck injection 09:42 CDT INTRA-PROCEDURE MED, Starting 07/17/18 at 0942, Until 07/17/18 at 2252, Intra-op lidocaine 2% (20 mg/mL) injection Given 07/17/2018 25 mL INTRA-PROCEDURE MED, Starting Tue 09:49 CDT 07/17/18 at 0949, Until Tu07/17/18 at 2252, Intra-op Given 07/17/2018 25 mL 16:27 CDT lisinopril (PRINIVIL; ZESTRIL) tablet 10 Given [...] CDT Given 07/24/2018 10 mg 08:45 CDT mineral oil (topical) Given 07/17/2018 30 mL INTRA-PROCEDURE MED, Starting Mon 09:49 CDT 07/17/18 at 0949, Until Mon07/17/18 at 2252, Intra-op morphine injection syringe 1-4 mg Given 07/18/2018 1 mg 1-4 mg, Intravenous, EVERY 2 HOURS PRN, 06:09 CDT Starting Mon07/17/18 at 2303, Until Mon07/24/18 at 1440, Pain Injectable, - Use only in case of pain not controlled by oral pain medication or if patient is NPO status. Given 07/18/2018 1 mg 11:39 CDT Given 07/19/2018 1 mg 02:16 CDT oxyCODONE (ROXICODONE) oral solution Given 07/20/2018 10 mg 5-15 mg 04:18 CDT 5-15 mg, Per NG tube, EVERY 4 HOURS PRN, Starting Mon07/17/18 at 2303, Until Mon07/24/18 at 1440, Pain PO Given 07/21/2018 10 mg 02:17 CDT Given 07/22/2018 5 mg 13:03 CDT pancrelipase 20,000 Units/ sodium Given 07/22/2018 1 capsule bicarbonate 650 mg(#) (KU CLOG 11:00 CDT DESTROYER) for occluded feeding tube cap 1 capsule 1 capsule, Feeding Tube, NEEDED (WORT EXTRACTOR FROM RX), Starting Rayna 07/19/18 at 0701, [...] CDT Given 07/24/2018 80 mg 08:52 CDT papaverine injection Given 07/17/2018 2 mL INTRA-PROCEDURE MED, Starting e 09:57 CDT 07/17/18 at 0957, Until Mon07/17/18 at 2252, Intra-op polyethylene glycol 3350 (MIRALAX) packet 17 g 17 g (1 packet), Per NG tube, DAILY, First dose on Mon07/23/18 at 0900, Until Discontinued, 8.5 GRAMS=0.5 PACKET 17 GRAMS=1 PACKET 34 GRAMS=2 PACKETS simvastatin (ZOCOR) tablet 40 mg Given 07/21/2018 40 mg 40 mg, Per NG tube, AT BEDTIME DAILY, 20:07 CDT First dose on Tu07/17/18 at 2330, Until Discontinued, NURSING: Please educate [...] WEEKLY (Once 20:43 CDT per day on Sun Mon Rayna Sat), First dose on Mon07/23/18 [...]
--- OUTSIDE RECORDS SUMMARY | 2018-08-20 08:39 | XMS REPORT | Encounter Summary ---
Author Author [facility] Organization [facility] Address Unknown Phone Unavailable Care Team Providers Care Refining Supervisor Name Role Phone Hyacinth Arias DO PCP Encounter Details Date Type Department Care Team Description 06/27/2018 Prep for Case [facility] J Luis Moore MD Oral cancer (HCC) Physicians - ENT [address] (Primary Dx) [facility] [place] [address] [place] [address] [phone] [place] [address] Social History Tobacco Use Types Packs/Day Years Used Date Former Smoker Cigarettes 1.5 50 Quit: 06/27/2008 Smokeless Tobacco: Never Used Alcohol Use Drinks/Week oz/Week Comments Yes 4 Cans of 2.4 beer Sex Assigned at Date Recorded Not on file as of this encounter Plan of Treatment Not on fileas of this encounter Visit Diagnoses Diagnosis 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
--- OUTSIDE RECORDS SUMMARY | 2018-08-20 08:39 | XMS REPORT | Clinical Summary ---
Author Author User, [employer]yan Organization [facility] [place] Address Unknown Phone Unavailable Allergies, Adverse Reactions, Alerts Allergy Name Reaction Description Start Date Severity Status Provider CODEINE Critical Active Hyacinth Arias Conditions or Problems Problem Name Problem Code Onset Date Status Entry Date Provider Comment Standard Description Annotate HYPERTENSION, BENIGN ESSENTIAL, UNCONTROLLED 401.1 Active 08/11 Hyacinth Arias Benign essential hypertension SMOKER 305.1 Resolved Hyacinth Arias Tobacco use disorder FOOT PAIN, LEFT 729.5 Resolved Hyacinth Arias Pain in limb OSTEOARTHRITIS 715.90 Active Hyacinth Arias Osteoarthrosis, unspecified whether generalized or localized, involving unspecified site FOOT PAIN, RIGHT 729.5 Resolved Hyacinth Arias Pain in limb BUNION, RIGHT FOOT 727.1 Resolved Hyacinth Arias Bunion HYPERCHOLESTEROLEMIA 272.0 Active Hyacinth Arias Pure hypercholesterolemia GERD 530.81 Resolved Hyacinth Arias Esophageal reflux NEOPLASM, MALIGNANT, 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, unspecified MUSCLE PAIN 729.1 Resolved Hyacinth Arias Myalgia and myositis, unspecified MACROCYTIC ANEMIA 281.9 Resolved Hyacinth Arias Unspecified deficiency anemia DYSHIDROTIC ECZEMA 705.81 Resolved Hyacinth Arias Dyshidrosis HYPERGLYCEMIA 790.29 Active Hyacinth Arias Other abnormal glucose WHEEZING 786.07 Resolved Hyacinth Arias Wheezing BRONCHITIS 490 Resolved Hyacinth Arais Bronchitis, not specified as acute or chronic ASTHMA, INTERMITTENT, MODERATE 493.10 Active Hyacinth Arias Intrinsic asthma, unspecified CHF 428.0 Resolved Hyacinth Arias Congestive heart failure, unspecified ATRIAL FIBRILLATION 427.31 Resolved Hyacinth Arias Atrial fibrillation EDEMA LEG 782.3 Resolved Hyacinth Arias Edema ATRIAL FIBRILLATION 427.31 Active Hyacinth Arias Atrial fibrillation CORONARY ATHEROSCLEROSIS, BURNS PAIUTE VESSEL 414.01 Active Hyacinth Arias Coronary atherosclerosis of [place] coronary artery CHF 428.0 Active Hyacinth Arias Congestive heart failure, unspecified COUMADIN THERAPY V58.61 Resolved Hyacinth Arias Long-term (current) use of anticoagulants HIP PAIN 719.45 Resolved Hyacinth Arias Pain in joint involving pelvic region and thigh LIVER FUNCTION TESTS, ABNORMAL 794.8 Resolved Hyacinth Arias Nonspecific abnormal results of function study of liver MICROALBUMINURIA 791.0 Active Hyacinth Arias Proteinuria NEOPLASM, SKIN, UNCERTAIN BEHAVIOR 238.2 Resolved Hyacinth Arias Neoplasm of uncertain behavior of skin HEALTH SCREENING V70.0 Resolved Hyacinth Arias Routine general medical examination at a health care facility DIABETES MELLITUS, NONINSULIN DEPENDENT (NIDDM) 250.02 Active Hyacinth Arias Diabetes mellitus without mention of complication, type II or unspecified type, uncontrolled Medication List Medication Instructions Start Date Stop Date Generic Name [facility] Status Provider Patient Instruction LISINOPRIL 5 MG TABS 1 po daily to protect Kidneys LISINOPRIL 06594104725 Active Hyacinthlinda Arias CLARITIN 10 MG TAB 1 PO daily LORATADINE 76385397980 Active Hyacinth Arias COUMADIN [address] Zamarripa WARFARIN SODIUM 74063949100 Active Hyacinthlinda Arais MULTIVITAMINS TABS 1 po daily MULTIPLE VITAMIN 18860059450 No Longer Active Hyacinthlinda Arias OMEPRAZOLE 40 MG CPDR 1 PO Daily OMEPRAZOLE 83241679773 Active Rocio Faulkner HYDROCODONE-ACETAMINOPHEN 5-325 MG TABS 1-2 PO Q4-6 hrs prn pain HYDROCODONE-ACETAMINOPHEN 76256919788 Active Hyacinthlinda Arias FLOVENT HFA 220 MCG/ACT AERO 2 puff BID prn FLUTICASONE PROPIONATE HFA 36230093088 No Longer Active Hyacinth Arias TUSSINEX PENNKINETIC ER 4-10 (CHLORPHENIRAMINE/HYDROCODONE) 1 tsp Q12hrs 2009 TUSSINEX PENNKINETIC ER 4-10 (CHLORPHENIRAMINE/HYDROCODONE) No Longer Active Hyacinthlinda Arias FLONASE 50 MCG/DOSE INHALANT 1 puff each nostril BID FLONASE 50 MCG/DOSE INHALANT 82037869543 No Longer Active Hyacinthlinda Arias PROTONIX 40 MG TBEC 1 po qd PANTOPRAZOLE SODIUM 06417899016 No Longer Active Hyacinthlinda Arias OMEPRAZOLE 20 MG TBEC 1 PO daily OMEPRAZOLE 08642421981 No Longer Active Hyacinthlinda Arias PROAIR HFA 108 (90 BASE) MCG/ACT AERS 2 puff Q4 hrs prn wheezing ALBUTEROL SULFATE 79027863568 No Longer Active Hyacinth Arias PRADAXA 150 MG CAPS 1 PO BID DABIGATRAN ETEXILATE MESYLATE 95223967183 No Longer Active Rocio Faulkner ZOCOR 40 MG TABS 1 PO daily SIMVASTATIN 95246701630 Active Hyacinth Thuy Arias NORVASC 2.5 MG TAB 1 PO daily AMLODIPINE BESYLATE 11895435826 Active Rocio Faulkner PRADAXA 150MG 1 PO BID PRADAXA 150MG No Longer Active Hyacinth Thuy Arias COUMADIN 5 MG TABS 1 po daily at 6 pm WARFARIN SODIUM 04270056331 No Longer Active Hyacinth Thuy Arias LOVENOX 80 MG/0.8ML SOLN 80mg sq q 12 hrs ENOXAPARIN SODIUM 38499637961 No Longer Active Hyacinth Thuy Arias ASPIRIN 325 MG TAB 1 PO QD OTC ASPIRIN 66707544126 No Longer Active Hyacinth Thuy Arias IRON (FERROUS GLUCONATE) 325 MG TAB 1 PO daily IRON (FERROUS GLUCONATE) 325 MG TAB No Longer Active Hyacinth Thuy Arias PROAIR HFA 108 (90 BASE) MCG/ACT AERS 2 puff Q4 hrs prn wheezing ALBUTEROL SULFATE 70909310106 No Longer Active Hyacinth Thuy Arias ADVAIR DISKUS 250-50 MCG/DOSE MISC 1 Puff BID FLUTICASONE-SALMETEROL 75494508552 No Longer Active Hyacinth Thuy Arias LORTAB 5 5-500 MG TABS 1 to 2 PO Q6hrs prn ACETAMINOPHEN-HYDROCODONE 81866525557 No Longer Active Hyacinth Thuy Airas HYDROCODONE-HOMATROPINE 5-1.5 MG/5ML SYRP 1 tsp PO Q4hrs prn 2009 HYDROCODONE-HOMATROPINE 84738898557 No Longer Active Hyacinth Thuy Arias TESSALON 200 MG CAPS 1 PO TID prn cough BENZONATATE 37603274537 No Longer Active Hyacinth Thuy Arias PREDNISONE 20 MG TAB 3 pills daily at once for 2 days, 2 pills daily at once for 2 days, 1 once daily for 2 days PREDNISONE 60455045332 No Longer Active Hyacinthlinda Arias BIAXIN XL PAC 500 MG TB24 2 pills at same time daily for 7 days CLARITHROMYCIN 11517783670 No Longer Active Hyacinthlinda Arias FERROUS SULFATE CR 325 MG TBCR 1 po BID with meals FERROUS SULFATE 93458409494 No Longer Active Hyacinth Thuy Arias FISH OIL 500 MG CAPS 1 PO daily OMEGA-3 FATTY ACIDS 29842042133 Active Hyacinthlinda Arias AMOXICILLIN 500 MG CAPS 1 po TID x 14 days AMOXICILLIN 10975255274 No Longer Active Hyacinthlinda Arias LOVENOX 40 MG/0.4ML SOLN 1 injection daily x 10 days ENOXAPARIN SODIUM 57527038516 No Longer Active Hyacinthlinda Arias CLOBETASOL PROPIONATE 0.05 % OINT Apply to affected areas on fingers twice daily prn CLOBETASOL PROPIONATE 82795296809 No Longer Active Hyacinth Arias B COMPLEX-B12 TABS 1 PO daily B COMPLEX VITAMINS 93718889663 Active Hyacinthlinda Arias ATENOLOL 50 MG TABS 1 po daily ATENOLOL 75723957799 Active Rocio Faulkenr NEXIUM 40 MG CPDR 1 PO daily ESOMEPRAZOLE MAGNESIUM 39341299152 No Longer Active Hyacinthlinda Arias PEPCID AC 10 MG CHEW as directed FAMOTIDINE 18386500209 No Longer Active Hyacinthlinda Arias LIPITOR 20 MG TABS 1 PO daily ATORVASTATIN CALCIUM 72057503328 No Longer Active Hyacinthlinda Arias CLINDAMYCIN HCL 150 MG CAPS 1 PO QID for tooth abcess CLINDAMYCIN HCL 57806260217 No Longer Active Hyacinthlinda Arias DICLOFENAC SODIUM 50 MG TBEC 1 po TID for 3 weeks DICLOFENAC SODIUM 05462085201 No Longer Active Hyacinth Arias CALTRATE 600 1500 MG TABS 1 po BID CALCIUM CARBONATE 72885881575 Active Hyacinth Arias INDERAL LA 80 MG CPCR 1 po daily PROPRANOLOL HCL 69020607184 No Longer Active Rocio Faulkner Immunizations Vaccine Administration Date Value Standard Description Influenza vaccine given Done influenza virus vaccine, unspecified formulation Influenza vaccine given done influenza virus vaccine, unspecified formulation pneumococcal immunization administered Done pneumococcal polysaccharide vaccine, 23 valent Vital Signs Date Name Value Unit Range Description blood pressure, diastolic - 8462-4 70 mm[Hg] BP sebastian blood pressure, systolic - 8480-6 116 mm[Hg] BP sys pulse rate E&M - 8867-4 68 /min Heart rate respiratory rate E&M - 9279-1 14 /min Resp rate temperature E&M 98.6 [degF] Body temperature weight E&M - 3141-9 130 [lb_av] Weight Measured blood pressure, diastolic - 8462-4 84 mm[Hg] BP sebastian blood pressure, systolic - 8480-6 110 mm[Hg] BP sys pulse rate E&M - 8867-4 60 /min Heart rate respiratory rate E&M - 9279-1 14 /min Resp rate temperature E&M 98.6 [degF] Body temperature weight E&M - 3141-9 133 [lb_av] Weight Measured blood pressure, diastolic - 8462-4 74 mm[Hg] BP sebastian blood pressure, systolic - 8480-6 130 mm[Hg] BP sys pulse rate E&M - 8867-4 72 /min Heart rate respiratory rate E&M - 9279-1 14 /min Resp rate weight E&M - 3141-9 125 [lb_av] Weight Measured Diagnostic Results Date Name Value Unit Range Description Clinical Lists Update: CBC,CMP,FLP,TSH,HGA1C,MICROALBUMIN - Chemistry chloride, serum 101 mmol/L alanine aminotransferase (SGPT), serum 32 U/L aspartate aminotransferase (SGOT), serum 44 U/L protein, total, serum 7.5 g/dL potassium, serum 4.0 mmol/L thyroid stimulating hormone, serum 2.17 u[iU]/mL triglyceride, serum, fasting 74 mg/dL very low density lipoproteins 15 mg/dL calcium, serum 9.8 mg/dL urea nitrogen, blood 17 mg/dL bilirubin, serum, total 0.8 mg/dL anion gap, serum 14 alkaline phosphatase, serum 66 U/L albumin, serum 4.5 g/dL LDL cholesterol, serum 90 mg/dL hemoglobin A1C, blood, as % of total hemoglobin 6.10 % HDL cholesterol, serum 86 mg/dL glucose, plasma fasting 98 mg/dL Estimated Glomerular Filtration Rate (calc) 60 mL/min/1.73m2 creatinine, serum 0.93 mg/dL carbon dioxide, venous blood 28 mmol/L cholesterol, serum 191 mg/dL cholesterol/HDL ratio, serum, percent 2.2 sodium, serum 139 mmol/L Clinical Lists Update: CBC,CMP,FLP,TSH,HGA1C,MICROALBUMIN - Hematology hemoglobin, blood 13.2 g/dL platelet count 159 10*3/mm3 hematocrit, blood 39.7 % mean corpuscular volume, RBC 99.3 fL red blood cell distribution width 12.4 % erythrocyte (RBC) count 4.00 10*6/mm3 leukocyte count, blood 4.29 10*3/mm3 Clinical Lists Update: CBC,CMP,FLP,TSH,HGA1C,MICROALBUMIN - Urinalysis microalbumin, urine, semiquantitative 58.7 mg/dL Clinical Lists Update: CMP,FLP,HgA1c - Chemistry urea nitrogen, blood 17 mg/dL calcium, serum 9.5 mg/dL bilirubin, serum, total 1.0 mg/dL anion gap, serum 12 alanine aminotransferase (SGPT), serum 30 U/L alkaline phosphatase, serum 69 U/L protein, total, serum 7.4 g/dL albumin, serum 4.4 g/dL chloride, serum 100 mmol/L LDL cholesterol, serum 98 mg/dL sodium, serum 137 mmol/L cholesterol/HDL ratio, serum, percent 2.3 very low density lipoproteins 12 mg/dL cholesterol, serum 194 mg/dL carbon dioxide, venous blood 29 mmol/L creatinine, serum 0.89 mg/dL triglyceride, serum, fasting 61 mg/dL Estimated Glomerular Filtration Rate (calc) 63 mL/min/1.73m2 potassium, serum 4.4 mmol/L hemoglobin A1C, blood, as % of total hemoglobin 6.10 % HDL cholesterol, serum 84 mg/dL aspartate aminotransferase (SGOT), serum 33 U/L glucose, plasma fasting 113 mg/dL Clinical Lists Update: PT,INR - Coagulation prothrombin time (patient) 19.8 s international normalized ratio (INR) 1.8 Clinical Lists Update: PT,INR [facility] - Coagulation prothrombin time (patient) 21.6 s international normalized ratio (INR) 2.4 international normalized ratio (INR) 1.8 prothrombin time (patient) 25.9 s prothrombin time (patient) 20.3 s international normalized ratio (INR) 2.8 Encounters Code Encounter Date Provider Facility CPT-81374 Ofc Vst, Est Level III 15:01:23 [employer] TECHNIC[employer] [facility] OFF[facility] CPT-55099 Ofc Vst, Est Level IV 19:17:51 [employer] TECHNIC[employer] [facility] Thuy Valener Hyacinth S Juana, DO, FACP CPT-69416 Ofc Vst, Est Level III 16:13:43 CDT [facility] Ofc Vst, Est Level III 15:37:41 CDT [facility]17 Ofc Vst, Est Level IV 14:47:33 CDT Hyacinth [facility] OFFICE CPT-75870 Ofc Vst, Est Level IV 14:33:32 [employer] TECHNICIAN [facility] CPT-52098 Ofc Vst, Est Level IV 14:27:50 CDT [facility] OFFICE CPT-60658 Ofc Vst, Est Level IV 15:03:28 CDT [facility] OFFICE CPT-67099 Ofc Vst, Est Level IV 15:57:36 CDT Hyacinth Thuydyan Arias [facility] S Juana, DO, FACP CPT-23730 Ofc Vst, Est Level V 15:19:54 CDT [facility] OFFICE CPT-47067 Ofc Vst, Est Level IV 10:58:46 CDT [facility] OFFICE CPT-90973 Ofc Vst, Est Level IV 14:50:36 [employer] TECHNICIAN [facility] OFFICE CPT-94568 Ofc Vst, Est Level IV 14:30:17 [employer] TECHNICIAN [facility], DO, FACP CPT-78923 Ofc Vst, Est Level IV 14:02:40 CDT [facility] OFFICE CPT-42382 Ofc Vst, Est Level IV 13:56:31 CDT Hyacinth Thuy Stormi Kina Juana, DO, FACP CPT-20592 Ofc Vst, Est Level IV 10:37:02 CDT Hyacinth Thuy Stormlinda Arias, DO, FACP CPT-73841 Ofc Vst, Est Level IV 14:05:52 [employer] TECHNICIAN Hyacinth Thuy Arias [facility] OFF[facility] CPT-67951 Ofc Vst, Est Level IV 16:33:25 CDT Hyacinth Thuy Arias [facility] OFF[facility] CPT-32200 Ofc Vst, Est Level V 21:04:23 CDT Hyacinth Thuy Valener [facility] OFFICE CPT-78059 Ofc Vst, Est Level IV 16:16:21 CDT Hyacinth Thuy Stormlinda Arias, DO, FACP CPT-66012 Ofc Vst, Est Level IV 15:51:25 CDT Hyacinth Thuy Stormi Kina Juana, DO, FACP CPT-86847 Ofc Vst, Est Level IV 14:48:14 [employer] TECHNICIAN Hyacinth Arias Hyacinth Arias, DO, FACP CPT-39440 Ofc Vst, Est Level IV 16:27:03 CDT Hyacnithlinda Valeeriberto Arias, DO, FACP CPT-29426 Ofc Vst, Est Level IV 15:52:01 CDT Hyacinthlinda Arias [facility] [place] CPT-71757 Ofc Vst, Est Level IV 16:35:52 [employer] TECHNICIAN Hyacinth Arias [facility] [place] CPT-84871 Ofc Vst, Est Level IV 16:35:15 CDT Hyacinth Arias [facility] [place] CPT-78489 Ofc Vst, Est Level IV 16:09:46 [employer] TECHNICIAN Hyacinth Arias [facility] [place] CPT-65316 Ofc Vst, Est Level IV 09:38:44 [employer] TECHNICIAN Hyacinth Arias [facility] [place] CPT-67741 Ofc Vst, Est Level IV 16:28:20 [employer] TECHNICIAN Hyacinth Arias [facility] [place] CPT-83996 Ofc Vst, Est Level III 18:01:30 [employer] TECHNICIAN Hyacinth Arias [facility] [place] CPT-53128 Ofc Vst, New Level III 17:57:02 CDT Hyacinth Arias [facility] [place] Procedures Code Procedure Name Date Entry Date Standard Description CPT-G0439 Medicare Annual Wellness Visit 16:42:25 CDT CPT-52283 Preventive, Est, (65+) 17:03:59 CDT CPT-G8445 E-Prescribing Not sent due to no medication given 16:13: 43 CDT CPT-G8445 E-Prescribing Not sent due to no medication given 15:37: 41 CDT CPT-G8445 E-Prescribing Not sent due to no medication given 16:05: 00 [employer] TECHNICIAN CPT-G0438 Medicare Annual Wellness Visit Initial 16:05:00 [employer] TECHNICIAN CPT-63782 Injection 10:37:02 CDT
--- OUTSIDE RECORDS SUMMARY | 2018-08-20 08:39 | XMS REPORT | Encounter Summary ---
Author Author [facility] Organization [facility] Address Unknown Phone Unavailable Care Team Providers Care Er Nurse Name Role Phone Hyacinth Arisa DO PCP Encounter Details Date Type Department Care Team Description 06/15/2018 Ancillary Rad Outpatient, Radiologist Diagnosis unknown Orders [address], [address] [place] [address] Social History Tobacco Use Types Packs/Day Years Used Date Never Assessed Sex Assigned at Date Recorded Not on file as of this encounter Plan of Treatment Not on fileas of this encounter Results * NM PET/CT EXTERNAL IMAGING (2018 12:15 AM) Narrative Performed At This order has been auto finalized and does not contain a result. * CT CHEST EXTERNAL IMAGING (2018) Narrative Performed At This order has been auto finalized and does not contain a result. in this encounter Visit Diagnoses Diagnosis Diagnosis unknown Other unknown and unspecified cause of morbidity or mortality
--- OUTSIDE RECORDS SUMMARY | 2018-08-20 08:39 | XMS REPORT | Encounter Summary ---
Author Author [facility] Organization [facility] Address Unknown Phone Unavailable Care Team Providers Care Machine Shop Inspector Name Role Phone Hyacinth Arias DO PCP Reason for Visit * Reason Comments Cancer Surveillance * Consult, Test & Treat (Routine) Status Reason Specialty Diagnoses / Referred By Referred To Procedures Contact Contact No Auth Needed Otolaryngology Diagnoses Arnoldo Olivares Kakarala, Kiran, NEW, oral MD [facility] [address] [place], [place] NEW PATIENT [id number] Phone: Fax: Encounter Details Date Type Department Care Team Description 06/27/2018 Office Visit [facility] J Luis Moore MD Tongue cancer (HCC) Physicians - ENT [address] Ortho and Medical [address] [place] [address] [address] [phone] [place] [address] Social History Tobacco Use Types Packs/Day Years Used Date Former Smoker Cigarettes 1.5 50 Quit: 06/27/2008 Smokeless Tobacco: Never Used Alcohol Use Drinks/Week oz/Week Comments Yes 4 Cans of 2.4 beer Sex Assigned at Date Recorded Not on file as of this encounter Last Filed Vital Signs Vital Sign Reading Time Taken Blood Pressure 159/72 06/27/2018 10:27 AM CDT Pulse 73 06/27/2018 10:27 AM CDT Temperature - - Respiratory Rate - - Oxygen Saturation - - Inhaled Oxygen - - Concentration Weight 52.6 kg (116 lb) 06/27/2018 10:27 AM CDT Height 147.3 cm (4' 10") 06/27/2018 10:27 AM CDT Body Mass Index 24.24 06/27/2018 10:27 AM CDT in this encounter Instructions * Patient Instructions - Loan Esteves LPN - 06/27/2018 10:30 AM CDT General Instructions for Surgery Patients Your Surgery is scheduled for July 17, [address] J Luis Moore Preparing for Surgery ? Hold Vitamin E, Vitamin A, Fish oil, multivitamin, and herbal supplements for 14 days prior to surgery. Hold Ibuprofen (Advil, Motrin), Naproxen (Aleve), and any other Non-Steroidal Anti-inflammatory medications for 7 days prior to surgery. If you take aspirin or any blood thinners, please contact the prescribing physician for recommendation regarding holding these medications prior to surgery. Do not stop taking any heart medications or aspirin without seeking the Approval of your Sample Patternmaker. ? Refrain from smoking two weeks before and two weeks after surgery. Nicotine and tobacco smoke delays healing and can result in scarring. This is the perfect time to give up the habit. ? Do not eat or drink anything, including water, after midnight the night before your Surgery. ? Arrange for someone to take you home from the hospital. You will not be allowed to drive or leave alone. Arrange to have someone to be with you the first 24 hours following surgery. You will receive a call from a Surgery Coordinator, by late afternoon the day before surgery. You may reach her by calling . Your surgery is scheduled at [facility]. Park in the parking garage off of [facility] [address]. Enter the [facility] through the 1st floor main entrance. Check in with admitting on 1st floor. Please park on the [place] of the [facility] Once you enter the building, you should be facing the Information Desk. Proceed to the Admissions Office, located on the ground floor, to the left of the Information Desk. The Day of Surgery ? Do not eat or drink anything, including water, after midnight the morning of surgery. Essential medication may be taken with a sip of water. ? Wear loose-fitting clothes that fasten in front or back. Avoid clothing that pulls over your head. ? Leave all valuables at home; do not wear jewelry. ? Do not wear any facial or eye make-up. Avoid nail greek. ? You may wear glasses but do not wear contact lenses. ? If you wear dentures, keep them in. ? Bring ID and insurance card with you. DONT TAKE CHANCES! If you are concerned about anything you consider significant, call us at [phone] business hours, ask for your nurse , Loan, or the on-call nurse. After hours ask to speak to the ENT doctor adapted physical education teacher. in this encounter Progress Notes * J Luis Moore MD - 06/27/2018 10:30 AM CDT Formatting of this note may be different from the original. Chief Complaint Patient presents with Cancer Surveillance History of Present Illness: Yeimy Lima is a 73 y.o. year old female evaluated on 06/27/2018, in the Otolaryngology-Head and Neck Surgery Clinic at the [facility]. The patient was referred by Dr. [...] bold where appropriate. Staff name: J Luis Moore MD in this encounter Plan of Treatment Not on fileas of this encounter Visit Diagnoses Diagnosis Tongue cancer (HCC) Malignant neoplasm of tongue, unspecified site
--- OUTSIDE RECORDS SUMMARY | 2018-08-20 08:39 | XMS REPORT | Encounter Summary ---
Author Author [facility] Organization [facility] Address Unknown Phone Unavailable Care Team Providers Care Ditto Machine Operator Name Role Phone Hyacinth Arias DO PCP Encounter Details Date Type Department Care Team Description 06/27/2018 PAC Office Preoperative Assessment J Luis Moore MD Atrial fibrillation, Visit Clinic [address] persistent (HCC) (Primary [facility] 1st fl G430 MS 3010 Dx) [address] [place] [address] [place] [address] [phone] Anesthesia Record Procedure Name Responsible Anesthesia Start [...] further abx redosing. 1905 Stat Labs Drawn 2242 an stop data 2246 Handoff to RN I completed my SBAR handoff to the receiving nurse. 2246 An Stop Meds * No agents on file. * No blood administrations on file. Type [...] 1052; Leg; Surgical Incision; 07/17/18 1052 by sOcar, (NOT for telfa, tegaderm,kerlix,sally Eileen, RN Pressure Injuries) Wounds 07/17/18; 1052; Chin to Neck to Chest; 07/17/18 1052 by Oscar, (NOT for Surgical Incision; sutures, bacitracin Eileen, RN Pressure Injuries) Wounds 07/17/18; 1052; Other (Comment); 07/17/18 105 by Oscar, (NOT for Surgical Incision; mouth: sutures Eileen, RN Pressure Injuries) Surgical 07/17/18; 1515; Cuffed; 7.0; Armorred 07/17/18 1515 by Airway ETT in [facility] was in place when Je Doherty CRNA assumed pt care. Peripheral 07/17/18; 1600; RN; R; Antecubital; 07/17/18 1600 by Juan, IV G; 1 Kelly Posada MD Wounds 07/17/18; 192; Chest; Surgical 07/17/181925 by Christopher, (NOT for Incision; sutures, jacqueline Lynn, RN Pressure Injuries) Pressure 07/17/18; 2300; Y; Right, Mid; Buttocks; 07/17/18 2300 by Gallegos , Injury Stage 2 SANTI Dodge Peripheral 07/17/18; 0730; RN; R; Mid; Forearm; 07/17/18 0730 by Harness, 07/19/18 1652 by Clarence, IV G; 1; 07/19/18; 1652 SANTI Rader, SANTI Arterial 07/17/18; 0821; R; Radial; 20 G; 1; 07/17/18 0821 by Martinez, 1123 by Lima, Line 07/20/18; 1123; N; Correct Patient, MD Italia Collins, RN Correct Patient Position, Correct Procedure, Correct Equipment / Implants Available, Marking Waived, Not Side Specific Indwelling 07/17/18; 0825; 16 FR; Regular (Two-way) 07/17/18 0825 by Oscar, 07/19/18 1824 by Clarence Urinary (temp-sensing); 07/19/18; 1824 SANTI Arellano RN Catheter Red 07/17/18; 1023; Left Nare; 18FR; 07/17/18 1023 by Oscar 07/21/18 0700 by Moises Oscar 07/21/18; 0700 SANTI Arellano RN NG Tube Gibson 07/17/18; 1315; Left, Lower; Arm; 19 FR; 07/17/18 1315 by Oscar, 07/24/18 0800 by Verónica Mccullough #1; 07/24/18; 0800; Per Provider SANTI Arellano RN Drain Gibson 07/17/18; 2026; Left; Chest; 19 FR; #2; 07/17/182026 by Christopher, 07/22/18 1030 by Verónica Oscar 07/22/18; 1030; Per Provider SANTI Bailey RN Drain Gibson 07/17/18; 2027; Left; Chest; 19 FR; #3; 07/17/182027 by Christopher, 07/24/18 0800 by Verónica Mccullough 07/24/18; 0800; Per Provider SANTI Bailey RN Drain Gibson 07/17/18; 2037; Right; Neck; 19 FR; #4; 07/17/182037 by Christopher, 07/22/18 1030 by Verónica Oscar 07/22/18; 1030 SANTI Bailey RN Drain Rahul 07/17/18; 2138; Left; Neck; 19 FR; #5; 07/17/182138 by Christopher, 07/18/18919 by Verónica Spann 07/18/18; 919; Per Provider SANTI Bailey RN Drain Tracheosto 07/17/18; 2201; 6.0; Cuffed, Shiley; 07/17/182201 by Christopher, 07/23/18805 by Ice, my Tube 07/23/18; 805 SANTI Bailey RN in this encounter Social History Tobacco Use Types Packs/Day Years Used Date Former Smoker Cigarettes 1.5 50 Quit: 06/27/2008 Smokeless Tobacco: Never Used Alcohol Use Drinks/Week oz/Week Comments Yes 4 Cans of 2.4 beer Sex Assigned at Date Recorded Not on file as of this encounter Last Filed Vital Signs Vital Sign Reading Time Taken Blood Pressure 163/67 06/27/2018 1:13 PM CDT Pulse 57 06/27/2018 1:13 PM CDT Temperature 36.5 C (97.7 F) 06/27/2018 1:13 PM CDT Respiratory Rate - - Oxygen Saturation 99% 06/27/2018 1:13 PM CDT Inhaled Oxygen - - Concentration Weight 52.6 kg (116 lb) 06/27/2018 1:13 PM CDT Height 147.3 cm (4' 10") 06/27/2018 1:13 PM CDT Body Mass Index 24.24 06/27/2018 1:13 PM CDT in this encounter Instructions * Pre-Anesthesia Patient Instructions - Stefani Willoughby RN - 06/27/2018 1:39 PM CDT GENERAL INFORMATION Before you come to the hospital Make arrangements for a responsible adult to drive you home and stay with you for 24 hours following surgery. Bath/Shower Instructions Take a bath or shower using the special soap given to you in PAC. Use half the bottle the night before, and the other half the morning of your procedure. Use clean towels with each bath or shower. Put on clean clothes after bath or shower. Avoid using lotion and oils. If you are having surgery above the waist, wear a shirt that fastens up the front. Sleep on clean sheets if bath or shower is done the night before procedure. Leave money, credit cards, jewelry, and any other valuables at home. [facility] is not responsible for the loss or breakage of personal items. Remove nail solomon islander, makeup and all jewelry (including piercings) before coming to the hospital. The morning of your procedure: brush your teeth and tongue do not shave the area where you will have surgery What to bring to the hospital ID/ Insurance Card Small bag with a few personal belongings Cases for glasses/hearing aids/contact lens (bring solutions for contacts) Dress in clean, loose, comfortable clothing Eating or drinking before surgery Do not eat or drink anything after 11:00 p.m. the day before your procedure ( including gum, mints, candy, or chewing tobacco) OR follow the specific instructions you were given by your Surgeon. You may have WATER ONLY up to 2 hours before arriving at the hospital. Other instructions Notify your surgeon if: you become ill with a cough, fever, sore throat, nausea, vomiting or flu- like symptoms you have any open wounds/sores that are red, painful, draining, or are new since you last saw the doctor you need to cancel your procedure You will receive a call with your surgery arrival time from between 2:30pm and 4:30pm the last business day before your procedure. If you do not receive a call, please call [phone] before 4:30pm or [phone] after 4:30pm. Notify us at [facility]: if you need to cancel your procedure if you are going to be late Arrival at the hospital Arrival at the [facility] A: Park in the P5 parking garage located at [address] [facility] [place] [address] (Next to the [facility] A [facility]). Block Handler [facility] the hours of 7:00 am and 4:00 pm Monday through Monday. If parking in the P5 garage, take the east elevators in the parking garage to the second level and walk to the entrance of the [facility]. Enter through the 1st floor main entrance and check in with Information Desk. You will be contacted by the surgery office between 2:30 pm and 4:30 pm on the last business day before your procedure to advise you of your arrival time. If you do not receive a call, you may call the Preoperative Assessment Clinic to confirm your arrival time. Before 4:30 pm, call [phone], and after 4:30 pm, call [phone]. * Pre-Anesthesia Medication Instructions - Jaylyn Song, CORNELIO - 2017 1:10 PM CDT Formatting of this note may be different from the original. YOUR MEDICATIONS: aspirin EC 81 mg tablet Take 81 [...] by mouth daily before breakfast. simvastatin (ZOCOR) 20 mg tablet Take 20 mg by mouth at bedtime daily. vitamins, multiple cap Take 1 capsule by mouth daily. warfarin (COUMADIN) 5 mg tablet 5mg on Wed and Fri 7.5mg on Sun, Mon, Tues , Thur, Sat YOUR MEDICATION INSTRUCTIONS FOR SURGERY: Before surgery Stop the following vitamins, herbals, and natural supplements 14 days before surgery: Multivitamin Fish oil Stop the following medications 7 days before surgery: Anti-inflammatory medications such as ibuprofen (Advil, Motrin) and naproxen (Aleve) You may use acetaminophen (Tylenol) Please follow these instructions regarding your blood thinner medications: Aspirin and Warfarin-We will call you with instructions. (Per a fax from Dr. Zamarripa, the patient may hold aspirin for 7 days prior to surgery and warfarin for 5 days prior to surgery -RS) Morning of surgery On the morning of surgery, do NOT take these medications: Remaining vitamins/supplements Calcium Vitamin B 12 Ointments/creams/lotions Lisinopril On the morning of surgery, take ONLY these medications with a sip (1-2 ounces) of water: Loratadine Atenolol Fluticasone Omeprazole If needed: Hydrocodone Other information Before surgery, please contact the clinic pharmacist with any medicine updates or questions. E-mail: [email or web address] Before going home from the hospital, please ask your doctor when you should re- start your medicines that were stopped before surgery. in this encounter Progress Notes * Jaylyn Song PHARMD - 06/27/2018 11:30 AM CDT PAC Pharmacist Medication Plan Note: Yeimy Lima was seen in the PAC on 06/27/18. As part of the visit, an accurate medication list was obtained and the patient was given pre-op medication instructions for upcoming surgery on 07/17/18. Per a fax from Dr. Zamarripa, the patient may hold aspirin for 7 days prior to surgery and warfarin for 5 days prior to surgery. The plan above was communicated to the patient who verbalized understanding. Jaylyn Song PHARMD in this encounter Plan of Treatment Name Priority Associated Diagnoses Order Schedule ECG 12-LEAD Routine Atrial fibrillation, ONE TIME for 1 persistent (HCC) Occurrences starting 06/27/2018 until 06/27/2018 as of this encounter Procedures Procedure Name Priority Date/Time Associated Diagnosis Comments CBC Routine 06/27/2018 Atrial fibrillation, Results for this 2:02 PM CDT persistent (HCC) procedure are in the results section. TYPE & SCREEN (NOT Routine 06/27/2018 Atrial fibrillation, Results for this CROSSMATCH ELIGIBLE) 2:02 PM CDT persistent (HCC) procedure are in the results section. BASIC METABOLIC PANEL Routine 06/27/2018 Atrial fibrillation, Results for this 2:02 PM CDT persistent (HCC) procedure are in the results section. in this encounter Results * TYPE & SCREEN (NOT CROSSMATCH ELIGIBLE) (06/27/2018 2:02 PM) ABO/RH(D) O POS [facility] Antibody Screen NEG [facility] Blood Component Type RED CELL GROUP [facility] Specimen Blood, venous - Blood Performing Organization Address City/[facility]/Zipcode Phone Number MAIN LAB [address] [place] [address] * BASIC METABOLIC PANEL (06/27/2018 2:02 PM) Sodium 126 (L) 137 - 147 MMOL/L [facility] Potassium 4.3 3.5 - 5.1 MMOL/L [facility] Chloride 94 (L) 98 - 110 MMOL/L [facility] CO2 25 21 - 30 MMOL/L [facility] Anion Gap 7 3 - 12 [facility] Glucose 105 (H) 70 - 100 MG/DL [facility] Blood Urea Nitrogen 10 7 - 25 MG/DL [facility] Creatinine 0.73 0.4 - 1.00 MG/DL [facility] Calcium 9.5 8.5 - 10.6 MG/DL [facility] [...] Organization Address City/[facility]/Zipcode Phone Number [facility] LAB [address] [place] [address] * CBC (06/27/2018 2:02 PM) White Blood Cells 5.3 4.5 - 11.0 K/UL [facility] RBC 4.01 4.0 - 5.0 M/UL [facility] Hemoglobin 12.4 12.0 - 15.0 GM/DL [facility] Hematocrit 37.3 36 - 45 % [facility] MCV 93.1 80 - 100 FL [facility] MCH 30.8 26 - 34 PG [facility] MCHC 33.1 32.0 - 36.0 G/DL [facility] RDW 16.5 (H) 11 - 15 % [facility] Platelet Count 184 150 - 400 K/UL [facility] MPV 7.2 7 - 11 FL [facility] Specimen Blood Performing Organization Address City/State/Zipcode Phone Number MAIN LAB [address] [place] [address] in this encounter Visit Diagnoses Diagnosis Atrial fibrillation, persistent (HCC) - Primary Atrial fibrillation
--- OUTSIDE RECORDS SUMMARY | 2018-08-20 08:39 | XMS REPORT | Encounter Summary ---
Author Author [facility] Organization [facility] Address Unknown Phone Unavailable Care Team Providers Care Neuropsychiatrist Name Role Phone Hyacinth Arias DO PCP Reason for Visit * Reason Comments Navigation Assessment Encounter Details Date Type Department Care Team Description 06/06/2018 Telephone [facility] Sharee Mcknight RN Navigation Assessment [facility] [address] [id number] Social History Tobacco Use Types Packs/Day Years Used Date Never Assessed Sex Assigned at Date Recorded Not on file as of this encounter Miscellaneous Notes * Telephone Encounter - Sharee Mcknight RN - 06/06/2018 3:56 PM CDT Navigation Intake Assessment Document Patient Name: Yeimy Lima : 1945 Insurance: Medicare/ BCBS Appointment Info: MonJun 27 at 10:[address] Moore Diagnosis & Reason for Visit: Oral cancer Physician Info: Referring Physician: Dr Arnoldo Olivares Contact Name & Number: [phone] PCP: Dr Deborah Arias Cardiology: Dr Salvador Matute Location of Films: PACS Location of Pathology: No biopsy of most recent finding of tongue lesion. History of Present Illness: 72 year old female who presented to Dr Olivares with lesion on the left side of her tongue. The growth was not present in February when evaluated by ENT, and now the lesion is 2.5 cm on the anterolateral tongue and involves the floor of the mouth. It palpates to be invasive. No restricion of motion of the tongue. The pt has a history of oral cancer. 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 06/12/18 PET: IMPRESSION: Intense hypermetabolism in the [...] of thoracic lymphadenopathy or pulmonary metastatic disease. Prior Treatment (XRT, Surgery, Chemotherapy): Excision 2015, Lidex cream 0.5% Comments: Quit smoking 3 years ago. PMH: CAD, LVEF 60% in 2017, Chronic persistent A-Fib,Cardioversion 2010, on Warfarin; hip replacement 2002; sinus surgery 2002 NEEDS Assessment: Genetic Counseling: Not Applicable Nutrition: Uncomfortable with chewing. Eating normally. Intentional wt loss , 15 in 6 months. Social Work/Financial: Retired, active with gardening and volunteering. . Leisure traveling. Spiritual & Emotional: Emotional support provided Celebrating wedding annviersary with children before ENT appointment. Physical: No needs identified Communication: No needs identified Oncofertility - Females age 40 and under; Males age 50 and under : Not applicable in this encounter Plan of Treatment Not on fileas of this encounter Visit Diagnoses Not on filein this encounter
--- OUTSIDE RECORDS SUMMARY | 2018-08-20 08:39 | XMS REPORT | Encounter Summary ---
Author Author [facility] Organization [facility] Address Unknown Phone Unavailable Care Team Providers Care Microbiology Lab Technician Name Role Phone PCP Unavailable Encounter Details Date Type Department Care Team Description 2018 Hospital [facility] Radiology [facility] 2nd fl [address] [place] [address] Social History Tobacco Use Types Packs/Day Years Used Date Never Assessed Sex Assigned at Date Recorded Not on file as of this encounter Plan of Treatment Not on fileas of this encounter Procedures Procedure Name Priority Date/Time Associated Diagnosis Comments CT CHEST EXTERNAL IMAGING Routine 2018 Diagnosis unknown Results for this 12:00 AM CDT procedure are in the results section. in this encounter Results * CT CHEST EXTERNAL IMAGING (2018) Narrative Performed At This order has been auto finalized and does not contain a result. in this encounter Visit Diagnoses Diagnosis Diagnosis unknown Other unknown and unspecified cause of morbidity or mortality
--- OUTSIDE RECORDS SUMMARY | 2018-08-20 08:39 | XMS REPORT | Encounter Summary ---
Author Author [facility] Organization [facility] Address Unknown Phone Unavailable Care Team Providers Care Motor Generator Set Operator Name Role Phone PCP Unavailable Encounter Details Date Type Department Care Team Description 2018 Hospital [facility] Radiology [facility] 2nd fl [address] [place] [address] Social History Tobacco Use Types Packs/Day Years Used Date Never Assessed Sex Assigned at Date Recorded Not on file as of this encounter Plan of Treatment Not on fileas of this encounter Procedures Procedure Name Priority Date/Time Associated Diagnosis Comments NM PET/CT EXTERNAL Routine 2018 Diagnosis unknown Results for this IMAGING 12:15 AM CDT procedure are in the results section. in this encounter Results * NM PET/CT EXTERNAL IMAGING (2018 12:15 AM) Narrative Performed At This order has been auto finalized and does not contain a result. in this encounter Visit Diagnoses Diagnosis Diagnosis unknown Other unknown and unspecified cause of morbidity or mortality
[2018-08-20 08:40] VITALS: BP 112/73
--- OUTSIDE RECORDS SUMMARY | 2018-08-20 08:40 | XMS REPORT | Clinical Summary ---
Author Author User, DIAMOND Organization [facility] Physician [place] Address Unknown Phone Unavailable Allergies, Adverse Reactions, [...] Pain in limb OSTEOARTHRITIS 715.90 Active Hyacinth Arais Osteoarthrosis, unspecified whether generalized or localized, involving [...] Hyacinth Arias Wheezing BRONCHITIS 490 Resolved Hyacinth Arias Bronchitis, not specified as acute or chronic ASTHMA, INTERMITTENT, MODERATE 493.10 Active Hyacinth Arias Intrinsic asthma, unspecified CHF 428.0 Resolved Hyacinth Arias Congestive heart failure, unspecified ATRIAL FIBRILLATION 427.31 Resolved Hyacinth Arias Atrial fibrillation EDEMA LEG 782.3 Resolved Hyacinth Arias Edema ATRIAL FIBRILLATION 427.31 Active Hyacinth Arias Atrial fibrillation CORONARY ATHEROSCLEROSIS, ALEKNAGIK VESSEL 414.01 Active Hyacinth Arias Coronary atherosclerosis of [place] coronary artery CHF 428.0 Active Hyacinth Arias [...] Instructions Start Date Stop Date Generic Name [facility] Status Provider Patient Instruction COUMADIN [address] Zamarripa WARFARIN SODIUM [id number] Active Hyacinthlinda Arias MULTIVITAMINS TABS 1 po daily MULTIPLE VITAMIN 77912609310 No Longer Active Hyacinthlinda Arias OMEPRAZOLE 40 MG CPDR 1 PO Daily OMEPRAZOLE 98056230359 Active Hyacinth Thuy Arias HYDROCODONE-ACETAMINOPHEN 5-325 MG TABS 1-2 PO Q4-6 hrs prn pain HYDROCODONE-ACETAMINOPHEN 93667109915 Active Hyacinth Thuy Arias FLOVENT HFA 220 MCG/ACT AERO 2 puff BID prn FLUTICASONE PROPIONATE HFA 76539392070 No Longer Active Hyacinthlinda Arias TUSSINEX PENNKINETIC ER 4-10 (CHLORPHENIRAMINE/HYDROCODONE) 1 tsp Q12hrs 2009 TUSSINEX PENNKINETIC ER 4-10 (CHLORPHENIRAMINE/HYDROCODONE) No Longer Active Hyacinthlinda Arias FLONASE 50 MCG/DOSE INHALANT 1 puff each nostril BID FLONASE 50 MCG/DOSE INHALANT 27506830094 No Longer Active Hyacinthlinda Arias PROTONIX 40 MG TBEC 1 po qd PANTOPRAZOLE SODIUM 52244697443 No Longer Active Hyacinthlinda Arias OMEPRAZOLE 20 MG TBEC 1 PO daily OMEPRAZOLE 59012974394 No Longer Active Hyacinthlinda Arias PROAIR HFA 108 (90 BASE) MCG/ACT AERS 2 puff Q4 hrs prn wheezing ALBUTEROL SULFATE 27844852384 No Longer Active Hyacinthlinda Arias PRADAXA 150 MG CAPS 1 PO BID DABIGATRAN ETEXILATE MESYLATE 96928043279 No Longer Active Rocio Faulkner ZOCOR 40 MG TABS 1 PO daily SIMVASTATIN 20746178401 Active Hyacinthlinda Arias NORVASC 2.5 MG TAB 1 PO daily AMLODIPINE BESYLATE 99920858967 Active Rocio Faulkner PRADAXA 150MG 1 PO BID PRADAXA 150MG No Longer Active Hyacinth Thuy Arias COUMADIN 5 MG TABS 1 po daily at 6 pm WARFARIN SODIUM 65673109100 No Longer Active Hyacinth Thuy Arias LOVENOX 80 MG/0.8ML SOLN 80mg sq q 12 hrs ENOXAPARIN SODIUM 12991236486 No Longer Active Hyacinth Thuy Arias ASPIRIN 325 MG TAB 1 PO QD OTC ASPIRIN 02439866246 No Longer Active Hyacinth Thuy Arias IRON (FERROUS GLUCONATE) 325 MG TAB 1 PO daily IRON (FERROUS GLUCONATE) 325 MG TAB No Longer Active Hyacinth Thuy Arias PROAIR HFA 108 (90 BASE) MCG/ACT AERS 2 puff Q4 hrs prn wheezing ALBUTEROL SULFATE 32412721601 No Longer Active Hyacinth Thuy Arias ADVAIR DISKUS 250-50 MCG/DOSE MISC 1 Puff BID FLUTICASONE-SALMETEROL 92319891606 No Longer Active Hyacinth Thuy Arias LORTAB 5 5-500 MG TABS 1 to 2 PO Q6hrs prn ACETAMINOPHEN-HYDROCODONE 27582876583 No Longer Active Hyacinth Thuy Arias HYDROCODONE-HOMATROPINE 5-1.5 MG/5ML SYRP 1 tsp PO Q4hrs prn 2009 HYDROCODONE-HOMATROPINE 67942950675 No Longer Active Hyacinth Thuy Arias TESSALON 200 MG CAPS 1 PO TID prn cough BENZONATATE 03892879505 No Longer Active Hyacinth Thuy Arias PREDNISONE 20 MG TAB 3 pills daily at once for 2 days, 2 pills daily at once for 2 days, 1 once daily for 2 days PREDNISONE 29929800031 No Longer Active Hyacinth Thuy Arias BIAXIN XL PAC 500 MG TB24 2 pills at same time daily for 7 days CLARITHROMYCIN 31712357405 No Longer Active Hyacinth Thuy Arias FERROUS SULFATE CR 325 MG TBCR 1 po BID with meals FERROUS SULFATE 87337525954 No Longer Active Hyacinth Thuy Arias FISH OIL 500 MG CAPS 1 PO daily OMEGA-3 FATTY ACIDS 62841277218 Active Hyacinth Thuy Arias AMOXICILLIN 500 MG CAPS 1 po TID x 14 days AMOXICILLIN 91986566722 No Longer Active Hyacinth Thuy Arias LOVENOX 40 MG/0.4ML SOLN 1 injection daily x 10 days ENOXAPARIN SODIUM 39598906137 No Longer Active Hyacinth Thuy Arias CLOBETASOL PROPIONATE 0.05 % OINT Apply to affected areas on fingers twice daily prn CLOBETASOL PROPIONATE 40953123567 No Longer Active Hyacinth Thuy Arias B COMPLEX-B12 TABS 1 PO daily B COMPLEX VITAMINS 13171726240 Active Hyacinth Thuy Arias ATENOLOL 50 MG TABS 1 po daily ATENOLOL 50470884429 Active Rocio Faulkner NEXIUM 40 MG CPDR 1 PO daily ESOMEPRAZOLE MAGNESIUM 06048240384 No Longer Active Hyacinthlinda Arias PEPCID AC 10 MG CHEW as directed FAMOTIDINE 63228802381 No Longer Active Hyacinth Thuy Arias LIPITOR 20 MG TABS 1 PO daily ATORVASTATIN CALCIUM 79817693152 No Longer Active Hyacinth Thuy Arias CLINDAMYCIN HCL 150 MG CAPS 1 PO QID for tooth abcess CLINDAMYCIN HCL 21904625503 No Longer Active Hyacinth Thuy Arias DICLOFENAC SODIUM 50 MG TBEC 1 po TID for 3 weeks DICLOFENAC SODIUM 67562428409 No Longer Active Hyacinth Thuy Arias CALTRATE 600 1500 MG TABS 1 po BID CALCIUM CARBONATE 77208826207 Active Hyacinth Thuy Arias INDERAL LA 80 MG CPCR 1 po daily PROPRANOLOL HCL 95925788347 No Longer Active Rocio Kaushik Immunizations Vaccine Administration Date Value Standard Description Influenza vaccine given Done influenza virus vaccine, unspecified formulation Influenza vaccine given done influenza virus vaccine, unspecified formulation pneumococcal immunization administered Done pneumococcal polysaccharide vaccine, 23 valent Vital Signs Date Name Value Unit Range Description blood pressure, diastolic - 8462-4 84 mm[Hg] [...] Value Unit Range Description Clinical Lists Update: CBC,TSH - Chemistry thyroid stimulating hormone, serum 1.94 u[iU]/mL Clinical Lists Update: CBC,TSH - Hematology red blood cell distribution width 12.2 % mean corpuscular volume, RBC 97.8 fL leukocyte count, blood 4.30 10*3/mm3 erythrocyte (RBC) count 4.01 10*6/mm3 platelet count 179 10*3/mm3 hemoglobin, blood 12.8 g/dL hematocrit, blood 39.2 % Clinical Lists Update: CMP,FLP,HgA1c - Chemistry anion gap, serum 12 sodium, serum 138 mmol/L sodium, serum 137 mmol/L triglyceride, serum, fasting 51 mg/dL triglyceride, serum, fasting 61 mg/dL bilirubin, serum, total 0.8 mg/dL bilirubin, serum, total 1.0 mg/dL alanine aminotransferase (SGPT), serum 35 U/L alanine aminotransferase (SGPT), serum 30 U/L aspartate aminotransferase (SGOT), serum 33 U/L aspartate aminotransferase (SGOT), serum 33 U/L protein, total, serum 7.0 g/dL protein, total, serum 7.4 g/dL potassium, serum 4.3 mmol/L potassium, serum 4.4 mmol/L LDL cholesterol, serum 85 mg/dL LDL cholesterol, serum 98 mg/dL hemoglobin A1C, blood, as % of total hemoglobin 5.89 % hemoglobin A1C, blood, as % of total hemoglobin 6.10 % HDL cholesterol, serum 79 mg/dL HDL cholesterol, serum 84 mg/dL creatinine, serum 0.99 mg/dL creatinine, serum 0.89 mg/dL carbon dioxide, venous blood 24 mmol/L carbon dioxide, venous blood 29 mmol/L cholesterol, serum 174 mg/dL cholesterol, serum 194 mg/dL chloride, serum 101 mmol/L chloride, serum 100 mmol/L calcium, serum 9.6 mg/dL calcium, serum 9.5 mg/dL urea nitrogen, blood 22 mg/dL urea nitrogen, blood 17 mg/dL alkaline phosphatase, serum 61 U/L alkaline phosphatase, serum 69 U/L albumin, serum 4.3 g/dL albumin, serum 4.4 g/dL anion gap, serum 17 cholesterol/HDL ratio, serum, percent 2.3 cholesterol/HDL ratio, serum, percent 2.2 very low density lipoproteins 12 mg/dL very low density lipoproteins 10 mg/dL glucose, plasma fasting 113 mg/dL glucose, plasma fasting 109 mg/dL Estimated Glomerular Filtration Rate (calc) 56 mL/min/1.73m2 Estimated Glomerular Filtration Rate (calc) 63 mL/min/1.73m2 Clinical Lists Update: PT,INR - Coagulation international normalized ratio (INR) 1.8 prothrombin time (patient) 19.8 s Clinical Lists Update: PT,INR [facility] - Coagulation prothrombin time (patient) 25.9 s prothrombin time (patient) 20.3 s prothrombin time (patient) 21.6 s international normalized ratio (INR) 2.4 international normalized ratio (INR) 1.8 international normalized ratio (INR) 2.8 Encounters Code Encounter Date Provider Facility CPT-30641 Ofc Vst, Est Level III 15:01:23 COMMUNICATION PROFESSOR [facility] CPT-85274 Ofc Vst, Est Level IV 19:17:51 COMMUNICATION PROFESSOR Hyacinth Arias DO, PARKER CPT-65037 Ofc Vst, Est Level III 16:13:43 CDT [facility] Thuy [facility] OFFICE CPT-19516 Ofc Vst, Est Level III 15:37:41 CDT [facility]PT[facility]84[facility] Ofc Vst, Est Level IV 14:47:33 CDT [facility] CPT-17345 Ofc Vst, Est Level IV 14:33:32 [facility]55268 Ofc Vst, Est Level IV 14:27:50 CDT [facility] Thuy Arias [place] OFFICE CPT-32088 Ofc Vst, Est Level IV 15:03:28 CDT Hyacinth Thuy Arias [place] OFFICE CPT-95289 Ofc Vst, Est Level IV 15:57:36 CDT Hyacinth Thuy Castanon Ju[place] DO, FACP CPT-01542 Ofc Vst, Est Level V 15:19:54 CDT Hyacinth Thuy Arias [place] OFFICE CPT-81568 Ofc Vst, Est Level IV 10:58:46 CDT Hyacinth Thuy Arias [place] OFFICE CPT-57449 Ofc Vst, Est Level IV 14:50:36 COMMUNICATION PROFESSOR Hyacinth Arias [place] OFFICE CPT-85669 Ofc Vst, Est Level IV 14:30:17 COMMUNICATION PROFESSOR Hyacinth Thuy Castanon [place] DO, FACP CPT-26412 Ofc Vst, Est Level IV 14:02:40 CDT Hyacinth Thuy Arias [place] OFFICE CPT-39172 Ofc Vst, Est Level IV 13:56:31 CDT Hyacinth Thuy Castanon [place]ana DO, FACP CPT-60698 Ofc Vst, Est Level IV 10:37:02 CDT Hyacinth Thuy Castanon [place]ana DO, FACP CPT-55600 Ofc Vst, Est Level IV 14:05:52 COMMUNICATION PROFESSOR Hyacinth Thuy Arias [place] OFFICE CPT-33787 Ofc Vst, Est Level IV 16:33:25 CDT Hyacinth Thuy Arias [place] OFFICE CPT-87184 Ofc Vst, Est Level V 21:04:23 CDT Hyacinth Thuy Arias [place] OFFICE CPT-43952 Ofc Vst, Est Level IV 16:16:21 CDT Hyacinth Thuy Castanon Juana DO, FACP CPT-30545 Ofc Vst, Est Level IV 15:51:25 CDT Hyacinth Daley [place] Claros Kina Juana, DO, FACP CPT-45574 Ofc Vst, Est Level IV 14:48:14 COMMUNICATION PROFESSOR Hyacinth Thuy Val[place] Hyacinth Kina [place], DO, FACP CPT-58003 Ofc Vst, Est Level IV 16:27:03 CDT Hyacinth Thuy [place] Arias, DO, FACP CPT-61303 Ofc Vst, Est Level IV 15:52:01 CDT Hyacinth Parryanne Juana [facility] [place] CPT-24938 Ofc Vst, Est Level IV 16:35:52 COMMUNICATION PROFESSOR Hyacinth Arias [facility] [place] CPT-06595 Ofc Vst, Est Level IV 16:35:15 CDT Hyacinth Arias [facility] [place] CPT-58818 Ofc Vst, Est Level IV 16:09:46 COMMUNICATION PROFESSOR Hyacinth Arias [facility] [place] CPT-33322 Ofc Vst, Est Level IV 09:38:44 COMMUNICATION PROFESSOR Hyacinthlinda Arias [facility] [place] CPT-03464 Ofc Vst, Est Level IV 16:28:20 COMMUNICATION PROFESSOR Hyacinth Arias [facility] [place] CPT-76976 Ofc Vst, Est Level III 18:01:30 COMMUNICATION PROFESSOR Hyacinthlinda Arias [facility] [place] CPT-57053 Ofc Vst, New Level III 17:57:02 CDT Hyacinth Arias [facility] [place] Procedures Code Procedure Name Date Entry Date Standard Description CPT-82270 Preventive, Est, (65+) 17:03:59 CDT CPT-G8445 E-Prescribing Not sent due to no medication given 16:13: 43 CDT CPT-G8445 E-Prescribing Not sent due to no medication given 15:37: 41 CDT CPT-G8445 E-Prescribing Not sent due to no medication given 16:05: 00 COMMUNICATION PROFESSOR CPT-G0438 Medicare Annual Wellness Visit Initial 16:05:00 COMMUNICATION PROFESSOR CPT-78171 Injection 10:37:02 CDT
--- OUTSIDE RECORDS SUMMARY | 2018-08-20 08:40 | XMS REPORT | Clinical Summary ---
Author Author User, Fed PlaybookDyan Organization [facility] Physician [place] Address Unknown Phone Unavailable Allergies, Adverse Reactions, [...] Active Hyacinth Arias Atrial fibrillation CORONARY ATHEROSCLEROSIS, ORUTSARARMIUT VESSEL 414.01 Active Hyacinth Arias Coronary atherosclerosis of [place] coronary artery CHF 428.0 Active Hyacinth Arias [...] Instructions Start Date Stop Date Generic Name [facility] Status Provider Patient Instruction LISINOPRIL 5 MG TABS 1 po daily to protect Kidneys LISINOPRIL 56985326582 Active Hyacinthlinda Arias CLARITIN 10 MG TAB 1 PO daily LORATADINE 70276697706 Active Hyacinth Arias COUMADIN [address] Zamarripa WARFARIN SODIUM 95644326697 Active Hyacinthlinda Arias MULTIVITAMINS TABS 1 po daily MULTIPLE VITAMIN 05012099678 No Longer Active Hyacinthlinda Arias OMEPRAZOLE 40 MG CPDR 1 PO Daily OMEPRAZOLE 92008450189 Active Rocio Fualkner HYDROCODONE-ACETAMINOPHEN 5-325 MG TABS 1-2 PO Q4-6 hrs prn pain HYDROCODONE-ACETAMINOPHEN 15349116331 Active Hyacinthlinda Arias FLOVENT HFA 220 MCG/ACT AERO 2 puff BID prn FLUTICASONE PROPIONATE HFA 61697140043 No Longer Active Hyacinth Arias TUSSINEX PENNKINETIC ER 4-10 (CHLORPHENIRAMINE/HYDROCODONE) 1 tsp Q12hrs 2009 TUSSINEX PENNKINETIC ER 4-10 (CHLORPHENIRAMINE/HYDROCODONE) No Longer Active Hyacinthlinda Arias FLONASE 50 MCG/DOSE INHALANT 1 puff each nostril BID FLONASE 50 MCG/DOSE INHALANT 30345603408 No Longer Active Hyacinthlinda Arias PROTONIX 40 MG TBEC 1 po qd PANTOPRAZOLE SODIUM 68814602297 No Longer Active Hyacinthlinda Arias OMEPRAZOLE 20 MG TBEC 1 PO daily OMEPRAZOLE 63603410560 No Longer Active Hyacinthlinda Arias PROAIR HFA 108 (90 BASE) MCG/ACT AERS 2 puff Q4 hrs prn wheezing ALBUTEROL SULFATE 22052296880 No Longer Active Hyacinth Arias PRADAXA 150 MG CAPS 1 PO BID DABIGATRAN ETEXILATE MESYLATE 45133220804 No Longer Active Rocio Faulkner ZOCOR 40 MG TABS 1 PO daily SIMVASTATIN 99166944285 Active Hyacinth Thuy Arias NORVASC 2.5 MG TAB 1 PO daily AMLODIPINE BESYLATE 74461800684 Active Rocio Faulkner PRADAXA 150MG 1 PO BID PRADAXA 150MG No Longer Active Hyacinth Thuy Arias COUMADIN 5 MG TABS 1 po daily at 6 pm WARFARIN SODIUM 05320532217 No Longer Active Hyacinth Thuy Arias LOVENOX 80 MG/0.8ML SOLN 80mg sq q 12 hrs ENOXAPARIN SODIUM 18168515451 No Longer Active Hyacinth Thuy Arias ASPIRIN 325 MG TAB 1 PO QD OTC ASPIRIN 71385231609 No Longer Active Hyacinth Thuy Arias IRON (FERROUS GLUCONATE) 325 MG TAB 1 PO daily IRON (FERROUS GLUCONATE) 325 MG TAB No Longer Active Hyacinth Thuy Arias PROAIR HFA 108 (90 BASE) MCG/ACT AERS 2 puff Q4 hrs prn wheezing ALBUTEROL SULFATE 17025470979 No Longer Active Hyacinth Thuy Arias ADVAIR DISKUS 250-50 MCG/DOSE MISC 1 Puff BID FLUTICASONE-SALMETEROL 40728453995 No Longer Active Hyacinth Thuy Arias LORTAB 5 5-500 MG TABS 1 to 2 PO Q6hrs prn ACETAMINOPHEN-HYDROCODONE 13400510647 No Longer Active Hyacinth Thuy Arias HYDROCODONE-HOMATROPINE 5-1.5 MG/5ML SYRP 1 tsp PO Q4hrs prn 2009 HYDROCODONE-HOMATROPINE 21520848653 No Longer Active Hyacinth Thuy Arias TESSALON 200 MG CAPS 1 PO TID prn cough BENZONATATE 87263516924 No Longer Active Hyacinth Thuy Arias PREDNISONE 20 MG TAB 3 pills daily at once for 2 days, 2 pills daily at once for 2 days, 1 once daily for 2 days PREDNISONE 75342338641 No Longer Active Hyacinthlinda Arias BIAXIN XL PAC 500 MG TB24 2 pills at same time daily for 7 days CLARITHROMYCIN 08452111104 No Longer Active Hyacinthlinda Arias FERROUS SULFATE CR 325 MG TBCR 1 po BID with meals FERROUS SULFATE 99371181383 No Longer Active Hyacinth Thuy Arias FISH OIL 500 MG CAPS 1 PO daily OMEGA-3 FATTY ACIDS 77669579957 Active Hyacinthlinda Arias AMOXICILLIN 500 MG CAPS 1 po TID x 14 days AMOXICILLIN 73430138690 No Longer Active Hyacinthlinda Arias LOVENOX 40 MG/0.4ML SOLN 1 injection daily x 10 days ENOXAPARIN SODIUM 42228716771 No Longer Active Hyacinthlinda Arias CLOBETASOL PROPIONATE 0.05 % OINT Apply to affected areas on fingers twice daily prn CLOBETASOL PROPIONATE 83767762282 No Longer Active Hyacinth Arias B COMPLEX-B12 TABS 1 PO daily B COMPLEX VITAMINS 29804754093 Active Hyacinthlinda Arias ATENOLOL 50 MG TABS 1 po daily ATENOLOL 24654693039 Active Rocio Faulkner NEXIUM 40 MG CPDR 1 PO daily ESOMEPRAZOLE MAGNESIUM 29548972316 No Longer Active Hyacinthlinda Arias PEPCID AC 10 MG CHEW as directed FAMOTIDINE 85368953136 No Longer Active Hyacinthlinda Arias LIPITOR 20 MG TABS 1 PO daily ATORVASTATIN CALCIUM 41917192706 No Longer Active Hyacinthlinda Arias CLINDAMYCIN HCL 150 MG CAPS 1 PO QID for tooth abcess CLINDAMYCIN HCL 50515830652 No Longer Active Hyacinthlinda Arias DICLOFENAC SODIUM 50 MG TBEC 1 po TID for 3 weeks DICLOFENAC SODIUM 87687724777 No Longer Active Hyacinth Arias CALTRATE 600 1500 MG TABS 1 po BID CALCIUM CARBONATE 58587091087 Active Hyacinth Arias INDERAL LA 80 MG CPCR 1 po daily PROPRANOLOL HCL 75107881112 No Longer Active Rocio Faulkner Immunizations Vaccine [...] E&M - 3141-9 133 [lb_av] Weight Measured Diagnostic Results Date Name Value Unit Range Description Clinical Lists Update: CBC,CMP,FLP,TSH,HGA1C,MICROALBUMIN - Chemistry Estimated Glomerular Filtration Rate (calc) 60 mL/min/1.73m2 glucose, plasma fasting 98 mg/dL albumin, serum 4.5 g/dL alkaline phosphatase, serum 66 U/L urea nitrogen, blood 17 mg/dL calcium, serum 9.8 mg/dL chloride, serum 101 mmol/L cholesterol, serum 191 mg/dL carbon dioxide, venous blood 28 mmol/L very low density lipoproteins 15 mg/dL cholesterol/HDL ratio, serum, percent 2.2 anion gap, serum 14 sodium, serum 139 mmol/L triglyceride, serum, fasting 74 mg/dL bilirubin, serum, total 0.8 mg/dL alanine aminotransferase (SGPT), serum 32 U/L aspartate aminotransferase (SGOT), serum 44 U/L protein, total, serum 7.5 g/dL potassium, serum 4.0 mmol/L LDL cholesterol, serum 90 mg/dL thyroid stimulating hormone, serum 2.17 u[iU]/mL hemoglobin A1C, blood, as % of total hemoglobin 6.10 % HDL cholesterol, serum 86 mg/dL creatinine, serum 0.93 mg/dL Clinical Lists Update: CBC,CMP,FLP,TSH,HGA1C,MICROALBUMIN - Hematology hemoglobin, blood 13.2 g/dL platelet count 159 10*3/mm3 erythrocyte (RBC) count 4.00 10*6/mm3 leukocyte count, blood 4.29 10*3/mm3 mean corpuscular volume, RBC 99.3 fL red blood cell distribution width 12.4 % hematocrit, blood 39.7 % Clinical Lists Update: CBC,CMP,FLP,TSH,HGA1C,MICROALBUMIN - Urinalysis microalbumin, urine, semiquantitative 58.7 mg/dL Clinical Lists Update: CMP,FLP,HgA1c - Chemistry Estimated Glomerular Filtration Rate (calc) 63 mL/min/1.73m2 glucose, plasma fasting 113 mg/dL very low density lipoproteins 12 mg/dL cholesterol/HDL ratio, serum, percent 2.3 anion gap, serum 12 sodium, serum 137 mmol/L triglyceride, serum, fasting 61 mg/dL bilirubin, serum, total 1.0 mg/dL alanine aminotransferase (SGPT), serum 30 U/L aspartate aminotransferase (SGOT), serum 33 U/L protein, total, serum 7.4 g/dL potassium, serum 4.4 mmol/L LDL cholesterol, serum 98 mg/dL hemoglobin A1C, blood, as % of total hemoglobin 6.10 % HDL cholesterol, serum 84 mg/dL creatinine, serum 0.89 mg/dL carbon dioxide, venous blood 29 mmol/L cholesterol, serum 194 mg/dL chloride, serum 100 mmol/L calcium, serum 9.5 mg/dL urea nitrogen, blood 17 mg/dL alkaline phosphatase, serum 69 U/L albumin, serum 4.4 g/dL Clinical Lists Update: PT,INR - Coagulation prothrombin time (patient) 32.3 s prothrombin time (patient) 19.8 s international normalized ratio (INR) 1.8 international normalized ratio (INR) 3.0 Clinical Lists Update: PT,INR [facility] - Coagulation international normalized ratio (INR) 2.0 prothrombin time (patient) 22.3 s Clinical Lists Update: PT,INR [facility] - Coagulation prothrombin time (patient) 21.6 s prothrombin time (patient) 20.3 s international normalized ratio (INR) 1.8 prothrombin time (patient) 25.9 s international normalized ratio (INR) 2.8 international normalized ratio (INR) 2.4 Encounters Code Encounter Date Provider Facility CPT-39871 Ofc Vst, Est Level III 15:01:23 ROLL EXAMINER Hyacinth WADE OFFICE CPT-94385 Ofc Vst, Est Level IV 19:17:51 ROLL EXAMINER Hyacinth Thuy Arias [facility] DO [place], FACP CPT-12822 Ofc Vst, Est Level III 16:13:43 CDT Hyacinth [facility] CPT-14916 Ofc Vst, Est Level III 15:37:41 CDT Hyacinth [facility] OFFICE CPT-76383 Ofc Vst, Est Level IV 14:47:33 CDT Hyacinth [facility] OFFICE CPT-08086 Ofc Vst, Est Level IV 14:33:32 ROLL EXAMINER Hyacinth [facility] CPT-23250 Ofc Vst, Est Level IV 14:27:50 CDT Hyacinth [facility] CPT-60537 Ofc Vst, Est Level IV 15:03:28 CDT Hyacinth [facility] CPT-31729 Ofc Vst, Est Level IV 15:57:36 CDT [facility]acinth [facility] [place] [facility] [place], FACP CPT-81286 Ofc Vst, Est Level V 15:19:54 CDT [facility] CPT-93711 Ofc Vst, Est Level IV 10:58:46 CDT Hyacinth [facility] CPT-95973 Ofc Vst, Est Level IV 14:50:36 ROLL EXAMINER Hyacinth [facility] CPT-11008 Ofc Vst, Est Level IV 14:30:17 ROLL EXAMINER Hyacinth Thuy Arias Hyacinth S DO [place], FACP CPT-94615 Ofc Vst, Est Level IV 14:02:40 [facility] Ofc Vst, Est Level IV 13:56:31 CDT Hyacinth Thuy Arias Hyacinth S Arias, DO, FACP CPT-44271 Ofc Vst, Est Level IV 10:37:02 CDT Hyacinth Daley [place] Arias, DO, FACP CPT-19237 Ofc Vst, Est Level IV 14:05:52 ROLL EXAMINER Hyacinth Valener [facility] CPT-31305 Ofc Vst, Est Level IV 16:33:25 CDT Hyacinth Thuy Arias [facility] CPT-34183 Ofc Vst, Est Level V 21:04:23 CDT Hyacinthlinda Valener [facility] CPT-12867 Ofc Vst, Est Level IV 16:16:21 CDT Hyacinth Thuy [place] Arias, DO, FACP CPT-38290 Ofc Vst, Est Level IV 15:51:25 CDT Hyacinth Thuy [place] Arias, DO, FACP CPT-25434 Ofc Vst, Est Level IV 14:48:14 ROLL EXAMINER Hyacinth Daley [place] Arias, DO, FACP CPT-91345 Ofc Vst, Est Level IV 16:27:03 CDT Hyacinthlinda Daley [place] Arias, DO, FACP CPT-68469 Ofc Vst, Est Level IV 15:52:01 CDT Hyacinth Arias [facility] [place] CPT-23765 Ofc Vst, Est Level IV 16:35:52 ROLL EXAMINER Hyacinth Arias [facility] [place] CPT-17800 Ofc Vst, Est Level IV 16:35:15 CDT Hyacinth Arias [facility] [place] CPT-35127 Ofc Vst, Est Level IV 16:09:46 ROLL EXAMINER Hyacinth Arias [facility] [place] CPT-40584 Ofc Vst, Est Level IV 09:38:44 ROLL EXAMINER Hyacinth Arias [facility] [place] CPT-68316 Ofc Vst, Est Level IV 16:28:20 ROLL EXAMINER Hyacinth Arias [facility] [place] CPT-08621 Ofc Vst, Est Level III 18:01:30 ROLL EXAMINER Hyacinth Arias [facility] [place] CPT-41118 Ofc Vst, New Level III 17:57:02 CDT Hyacinth Arias [facility] [place] Procedures Code Procedure Name Date Entry Date Standard Description CPT-G0439 Medicare Annual Wellness Visit 16:42:25 CDT CPT-28217 Preventive, Est, (65+) 17:03:59 CDT CPT-G8445 E-Prescribing Not sent due to no medication given 16:13: 43 CDT CPT-G8445 E-Prescribing Not sent due to no medication given 15:37: 41 CDT CPT-G8445 E-Prescribing Not sent due to no medication given 16:05: 00 ROLL EXAMINER CPT-G0438 Medicare Annual Wellness Visit Initial 16:05:00 ROLL EXAMINER CPT-41296 Injection 10:37:02 CDT
--- OUTSIDE RECORDS SUMMARY | 2018-08-20 08:41 | XMS REPORT | Clinical Summary ---
Author Author User, ConnotateDyan Organization [facility] Physician [place] Address Unknown Phone Unavailable Allergies, Adverse Reactions, [...] Active Hyacinth Arias Atrial fibrillation CORONARY ATHEROSCLEROSIS, [place] VESSEL 414.01 Active Hyacinth Arias Coronary atherosclerosis of [place] coronary artery CHF 428.0 Active Hyacinth Arias [...] Instructions Start Date Stop Date Generic Name [facility] Status Provider Patient Instruction LISINOPRIL 5 MG TABS 1 po daily to protect Kidneys LISINOPRIL 14589108401 Active Hyacinthlinda Arias CLARITIN 10 MG TAB 1 PO daily LORATADINE 06528483152 Active Hyacinth Arias COUMADIN [address] Zamarripa WARFARIN SODIUM 62341971144 Active Hyacinthlinda Arias MULTIVITAMINS TABS 1 po daily MULTIPLE VITAMIN 52628039468 No Longer Active Hyacinthlinda Arias OMEPRAZOLE 40 MG CPDR 1 PO Daily OMEPRAZOLE 59699685982 Active Rocio Faulkner HYDROCODONE-ACETAMINOPHEN 5-325 MG TABS 1-2 PO Q4-6 hrs prn pain HYDROCODONE-ACETAMINOPHEN 32438600053 Active Hyacinthlinda Arias FLOVENT HFA 220 MCG/ACT AERO 2 puff BID prn FLUTICASONE PROPIONATE HFA 84918395232 No Longer Active Hyacinth Arias TUSSINEX PENNKINETIC ER 4-10 (CHLORPHENIRAMINE/HYDROCODONE) 1 tsp Q12hrs 2009 TUSSINEX PENNKINETIC ER 4-10 (CHLORPHENIRAMINE/HYDROCODONE) No Longer Active Hyacinthlinda Arias FLONASE 50 MCG/DOSE INHALANT 1 puff each nostril BID FLONASE 50 MCG/DOSE INHALANT 84124830688 No Longer Active Hyacinthlinda Arias PROTONIX 40 MG TBEC 1 po qd PANTOPRAZOLE SODIUM 78921842195 No Longer Active Hyacinthlinda Arias OMEPRAZOLE 20 MG TBEC 1 PO daily OMEPRAZOLE 54666216702 No Longer Active Hyacinthlinda Arias PROAIR HFA 108 (90 BASE) MCG/ACT AERS 2 puff Q4 hrs prn wheezing ALBUTEROL SULFATE 15030796304 No Longer Active Hyacinth Arias PRADAXA 150 MG CAPS 1 PO BID DABIGATRAN ETEXILATE MESYLATE 96343591788 No Longer Active Rocio Faulkner ZOCOR 40 MG TABS 1 PO daily SIMVASTATIN 33206854497 Active Hyacinth Thuy Arias NORVASC 2.5 MG TAB 1 PO daily AMLODIPINE BESYLATE 75312191222 Active Rocio Faulkner PRADAXA 150MG 1 PO BID PRADAXA 150MG No Longer Active Hyacinth Thuy Arias COUMADIN 5 MG TABS 1 po daily at 6 pm WARFARIN SODIUM 44898365229 No Longer Active Hyacinth Thuy Arias LOVENOX 80 MG/0.8ML SOLN 80mg sq q 12 hrs ENOXAPARIN SODIUM 25391567573 No Longer Active Hyacinth Thuy Arias ASPIRIN 325 MG TAB 1 PO QD OTC ASPIRIN 96501583455 No Longer Active Hyacinth Thuy Arias IRON (FERROUS GLUCONATE) 325 MG TAB 1 PO daily IRON (FERROUS GLUCONATE) 325 MG TAB No Longer Active Hyacinth Thuy Arias PROAIR HFA 108 (90 BASE) MCG/ACT AERS 2 puff Q4 hrs prn wheezing ALBUTEROL SULFATE 85110113999 No Longer Active Hyacinth Thuy Arias ADVAIR DISKUS 250-50 MCG/DOSE MISC 1 Puff BID FLUTICASONE-SALMETEROL 14147040282 No Longer Active Hyacinth Thuy Arias LORTAB 5 5-500 MG TABS 1 to 2 PO Q6hrs prn ACETAMINOPHEN-HYDROCODONE 68338152827 No Longer Active Hyacinth Thuy Arias HYDROCODONE-HOMATROPINE 5-1.5 MG/5ML SYRP 1 tsp PO Q4hrs prn 2009 HYDROCODONE-HOMATROPINE 54650198111 No Longer Active Hyacinth Thuy Arias TESSALON 200 MG CAPS 1 PO TID prn cough BENZONATATE 93177755595 No Longer Active Hyacinth Thuy Arias PREDNISONE 20 MG TAB 3 pills daily at once for 2 days, 2 pills daily at once for 2 days, 1 once daily for 2 days PREDNISONE 65020026217 No Longer Active Hyacinthlinda Airas BIAXIN XL PAC 500 MG TB24 2 pills at same time daily for 7 days CLARITHROMYCIN 61735392315 No Longer Active Hyacinthlinda Arias FERROUS SULFATE CR 325 MG TBCR 1 po BID with meals FERROUS SULFATE 94227441054 No Longer Active Hyacinth Thuy Arias FISH OIL 500 MG CAPS 1 PO daily OMEGA-3 FATTY ACIDS 32628558503 Active Hyacinthlinda Arias AMOXICILLIN 500 MG CAPS 1 po TID x 14 days AMOXICILLIN 02492157677 No Longer Active Hyacinthlinda Arias LOVENOX 40 MG/0.4ML SOLN 1 injection daily x 10 days ENOXAPARIN SODIUM 44846538008 No Longer Active Hyacinthlinda Arias CLOBETASOL PROPIONATE 0.05 % OINT Apply to affected areas on fingers twice daily prn CLOBETASOL PROPIONATE 79901958045 No Longer Active Hyacinth Arias B COMPLEX-B12 TABS 1 PO daily B COMPLEX VITAMINS 47438652141 Active Hyacinthlinda Arias ATENOLOL 50 MG TABS 1 po daily ATENOLOL 46509330727 Active Rocio Faulkner NEXIUM 40 MG CPDR 1 PO daily ESOMEPRAZOLE MAGNESIUM 59616386750 No Longer Active Hyacinthlinda Arias PEPCID AC 10 MG CHEW as directed FAMOTIDINE 67623301306 No Longer Active Hyacinthlinda Arias LIPITOR 20 MG TABS 1 PO daily ATORVASTATIN CALCIUM 40243130862 No Longer Active Hyacinthlinda Arias CLINDAMYCIN HCL 150 MG CAPS 1 PO QID for tooth abcess CLINDAMYCIN HCL 54913920604 No Longer Active Hyacinthlinda Arias DICLOFENAC SODIUM 50 MG TBEC 1 po TID for 3 weeks DICLOFENAC SODIUM 76799370472 No Longer Active Hyacinth Arias CALTRATE 600 1500 MG TABS 1 po BID CALCIUM CARBONATE 31324492524 Active Hyacinth Arias INDERAL LA 80 MG CPCR 1 po daily PROPRANOLOL HCL 95329146263 No Longer Active Rocio Faulkner Immunizations Vaccine [...] serum 101 mmol/L cholesterol, serum 191 mg/dL very low density lipoproteins 15 mg/dL cholesterol/HDL [...] serum 86 mg/dL creatinine, serum 0.93 mg/dL carbon dioxide, venous blood 28 mmol/L Clinical Lists Update: CBC,CMP,FLP,TSH,HGA1C,MICROALBUMIN - Hematology mean corpuscular volume, RBC 99.3 fL red blood cell distribution width 12.4 % hemoglobin, blood 13.2 g/dL platelet count 159 10*3/mm3 erythrocyte (RBC) count 4.00 10*6/mm3 leukocyte count, blood 4.29 10*3/mm3 hematocrit, blood 39.7 % Clinical Lists Update: CBC,CMP,FLP,TSH,HGA1C,MICROALBUMIN - Urinalysis microalbumin, urine, semiquantitative 58.7 mg/dL Clinical Lists Update: CMP,FLP,HgA1c - Chemistry Estimated Glomerular Filtration Rate (calc) 63 mL/min/1.73m2 glucose, plasma fasting 113 mg/dL albumin, serum 4.4 g/dL alkaline phosphatase, serum 69 U/L urea nitrogen, blood 17 mg/dL calcium, serum 9.5 mg/dL chloride, serum 100 mmol/L cholesterol, serum 194 mg/dL carbon dioxide, venous blood 29 mmol/L creatinine, serum 0.89 mg/dL HDL cholesterol, serum 84 mg/dL hemoglobin A1C, blood, as % of total hemoglobin 6.10 % LDL cholesterol, serum 98 mg/dL very low density lipoproteins 12 mg/dL cholesterol/HDL ratio, serum, percent 2.3 anion gap, serum 12 sodium, serum 137 mmol/L triglyceride, serum, fasting 61 mg/dL bilirubin, serum, total 1.0 mg/dL alanine aminotransferase (SGPT), serum 30 U/L aspartate aminotransferase (SGOT), serum 33 U/L protein, total, serum 7.4 g/dL potassium, serum 4.4 mmol/L Clinical Lists Update: PT,INR - Coagulation international normalized ratio (INR) 1.8 international normalized ratio (INR) 3.0 prothrombin time (patient) 32.3 s prothrombin time (patient) 19.8 s Clinical Lists Update: PT,INR [facility] - Coagulation prothrombin time (patient) 22.3 s international normalized ratio (INR) 2.0 Clinical Lists Update: PT,INR [facility] - Coagulation prothrombin time (patient) 21.6 s prothrombin time (patient) 25.9 s international normalized ratio (INR) 2.4 international normalized ratio (INR) 1.8 prothrombin time (patient) 20.3 s international normalized ratio (INR) 2.8 Encounters Code Encounter Date Provider Facility CPT-54844 Ofc Vst, Est Level III 15:01:23 ROOM SERVER Hyacinth [facility] CPT-48597 Ofc Vst, Est Level IV 19:17:51 ROOM SERVER Hyacinth Thuy Arias Hyacinth S DO [place], FACP CPT-69283 Ofc Vst, Est Level III 16:13:43 CDT Hyacinth [facility] CPT-54923 Ofc Vst, Est Level III 15:37:41 CDT Hyacinth [facility] OFFICE CPT-32870 Ofc Vst, Est Level IV 14:47:33 CDT Hyacinth [facility] OFFICE CPT-71938 Ofc Vst, Est Level IV 14:33:32 ROOM SERVER Hyacinth [facility] CPT-11536 Ofc Vst, Est Level IV 14:27:50 CDT Hyacinth [facility] CPT-78400 Ofc Vst, Est Level IV 15:03:28 CDT Hyacinth [facility] CPT-54255 Ofc Vst, Est Level IV 15:57:36 CDT Hyacinth Thuy [place] [facility] DO [place], FACP CPT-67386 Ofc Vst, Est Level V 15:19:54 CDT [facility] CPT-70389 Ofc Vst, Est Level IV 10:58:46 CDT Hyacinth [facility] CPT-68936 Ofc Vst, Est Level IV 14:50:36 ROOM SERVER Hyacinth [facility] CPT-64383 Ofc Vst, Est Level IV 14:30:17 ROOM SERVER Hyacinth Thuy Arias Hyacinth S DO [place], FACP CPT-31389 Ofc Vst, Est Level IV 14:02:40 [facility] Ofc Vst, Est Level IV 13:56:31 CDT Hyacinth Thuy Arias Hyacinth S Arias, DO, FACP CPT-14914 Ofc Vst, Est Level IV 10:37:02 CDT Hyacinth Daley [place] Arias, DO, FACP CPT-71514 Ofc Vst, Est Level IV 14:05:52 ROOM SERVER Hyacinth Valener [place] [facility] CPT-94443 Ofc Vst, Est Level IV 16:33:25 CDT Hyacinth Thuy Arias [place] [facility] CPT-06575 Ofc Vst, Est Level V 21:04:23 CDT Hyacinthlinda Valener [place] [facility] CPT-37101 Ofc Vst, Est Level IV 16:16:21 CDT Hyacinth Thuy [place] Arias, DO, FACP CPT-44959 Ofc Vst, Est Level IV 15:51:25 CDT Hyacinth Thuy [place] Arias, DO, FACP CPT-26042 Ofc Vst, Est Level IV 14:48:14 ROOM SERVER Hyacinth Daley [place] Arias, DO, FACP CPT-80783 Ofc Vst, Est Level IV 16:27:03 CDT Hyacinthlinda Daley [place] Arias, DO, FACP CPT-87037 Ofc Vst, Est Level IV 15:52:01 CDT Hyacinth Arias [facility] [place] CPT-30509 Ofc Vst, Est Level IV 16:35:52 ROOM SERVER Hyacinth [facility]as [facility] [place] CPT-41046 Ofc Vst, Est Level IV 16:35:15 CDT Hyacinth Arias [facility] [place] CPT-43764 Ofc Vst, Est Level IV 16:09:46 ROOM SERVER Hyacinth Arias [facility] [place] CPT-94744 Ofc Vst, Est Level IV 09:38:44 ROOM SERVER Hyacinth Arias [facility] [place] CPT-07201 Ofc Vst, Est Level IV 16:28:20 ROOM SERVER Hyacinth Arias [facility] Physician [place] CPT-04384 Ofc Vst, Est Level III 18:01:30 ROOM SERVER Hyacinth Arias [facility] [place] CPT-88637 Ofc Vst, New Level III 17:57:02 CDT Hyacinth Arias [facility] Physician [place] Procedures Code Procedure Name Date Entry Date Standard Description CPT-G0439 Medicare Annual Wellness Visit 16:42:25 CDT CPT-40138 Preventive, Est, (65+) 17:03:59 CDT CPT-G8445 E-Prescribing Not sent due to no medication given 16:13: 43 CDT CPT-G8445 E-Prescribing Not sent due to no medication given 15:37: 41 CDT CPT-G8445 E-Prescribing Not sent due to no medication given 16:05: 00 ROOM SERVER CPT-G0438 Medicare Annual Wellness Visit Initial 16:05:00 ROOM SERVER CPT-19116 Injection 10:37:02 CDT
--- OUTSIDE RECORDS SUMMARY | 2018-08-20 08:41 | XMS REPORT | Clinical Summary ---
Author Author User, DIAMOND Organization [facility] Physician [place] Address Unknown Phone Unavailable Allergies, Adverse Reactions, [...] Active Hyacinth Arias Atrial fibrillation CORONARY ATHEROSCLEROSIS, [place] VESSEL 414.01 Active Hyacinth Arias Coronary atherosclerosis of [place] coronary artery CHF 428.0 Active Hyacinth Arias [...] Instructions Start Date Stop Date Generic Name [facility] Status Provider Patient Instruction COUMADIN [address] Zamarripa WARFARIN SODIUM 73011298902 Active Hyacinthlinda Arias MULTIVITAMINS TABS 1 po daily MULTIPLE VITAMIN 59654973412 No Longer Active Hyacinthlinda Arias OMEPRAZOLE 40 MG CPDR 1 PO Daily OMEPRAZOLE 55056321452 Active Hyacinth Thuy Arias HYDROCODONE-ACETAMINOPHEN 5-325 MG TABS 1-2 PO Q4-6 hrs prn pain HYDROCODONE-ACETAMINOPHEN 75841808398 Active Hyacinth Thuy Arias FLOVENT HFA 220 MCG/ACT AERO 2 puff BID prn FLUTICASONE PROPIONATE HFA 25596947163 No Longer Active Hyacinthlinda Arias TUSSINEX PENNKINETIC ER 4-10 (CHLORPHENIRAMINE/HYDROCODONE) 1 tsp Q12hrs 2009 TUSSINEX PENNKINETIC ER 4-10 (CHLORPHENIRAMINE/HYDROCODONE) No Longer Active Hyacinthlinda Arias FLONASE 50 MCG/DOSE INHALANT 1 puff each nostril BID FLONASE 50 MCG/DOSE INHALANT 96593835961 No Longer Active Hyacinthlinda Arias PROTONIX 40 MG TBEC 1 po qd PANTOPRAZOLE SODIUM 91311099460 No Longer Active Hyacinthlinda Arias OMEPRAZOLE 20 MG TBEC 1 PO daily OMEPRAZOLE 62154580489 No Longer Active Hyacinthlinda Arias PROAIR HFA 108 (90 BASE) MCG/ACT AERS 2 puff Q4 hrs prn wheezing ALBUTEROL SULFATE 32156723518 No Longer Active Hyacinthlinda Arias PRADAXA 150 MG CAPS 1 PO BID DABIGATRAN ETEXILATE MESYLATE 89554987199 No Longer Active Rocio Faulkner ZOCOR 40 MG TABS 1 PO daily SIMVASTATIN 21444331658 Active Hyacinthlinda Arias NORVASC 2.5 MG TAB 1 PO daily AMLODIPINE BESYLATE 88215625252 Active Rocio Faulkner PRADAXA 150MG 1 PO BID PRADAXA 150MG No Longer Active Hyacinth Thuy Arias COUMADIN 5 MG TABS 1 po daily at 6 pm WARFARIN SODIUM 34928971786 No Longer Active Hyacinth Thuy Arias LOVENOX 80 MG/0.8ML SOLN 80mg sq q 12 hrs ENOXAPARIN SODIUM 69823652237 No Longer Active Hyacinth Thuy Arias ASPIRIN 325 MG TAB 1 PO QD OTC ASPIRIN 51472832727 No Longer Active Hyacinth Thuy Arias IRON (FERROUS GLUCONATE) 325 MG TAB 1 PO daily IRON (FERROUS GLUCONATE) 325 MG TAB No Longer Active Hyacinth Thuy Arias PROAIR HFA 108 (90 BASE) MCG/ACT AERS 2 puff Q4 hrs prn wheezing ALBUTEROL SULFATE 75626760008 No Longer Active Hyacinth Thuy Arias ADVAIR DISKUS 250-50 MCG/DOSE MISC 1 Puff BID FLUTICASONE-SALMETEROL 48128509968 No Longer Active Hyacinth Thuy Arais LORTAB 5 5-500 MG TABS 1 to 2 PO Q6hrs prn ACETAMINOPHEN-HYDROCODONE 33493683874 No Longer Active Hyacinth Thuy Arias HYDROCODONE-HOMATROPINE 5-1.5 MG/5ML SYRP 1 tsp PO Q4hrs prn 2009 HYDROCODONE-HOMATROPINE 95962758431 No Longer Active Hyacinth Thuy Arias TESSALON 200 MG CAPS 1 PO TID prn cough BENZONATATE 98094563706 No Longer Active Hyacinth Thuy Arias PREDNISONE 20 MG TAB 3 pills daily at once for 2 days, 2 pills daily at once for 2 days, 1 once daily for 2 days PREDNISONE 82766598326 No Longer Active Hyacinth Thuy Arias BIAXIN XL PAC 500 MG TB24 2 pills at same time daily for 7 days CLARITHROMYCIN 08810853119 No Longer Active Hyacinth Thuy Arias FERROUS SULFATE CR 325 MG TBCR 1 po BID with meals FERROUS SULFATE 01579310766 No Longer Active Hyacinth Thuy Arias FISH OIL 500 MG CAPS 1 PO daily OMEGA-3 FATTY ACIDS 61749320383 Active Hyacinth Thuy Arias AMOXICILLIN 500 MG CAPS 1 po TID x 14 days AMOXICILLIN 27922340842 No Longer Active Hyacinth Thuy Arias LOVENOX 40 MG/0.4ML SOLN 1 injection daily x 10 days ENOXAPARIN SODIUM 01158437477 No Longer Active Hyacinth Thuy Arias CLOBETASOL PROPIONATE 0.05 % OINT Apply to affected areas on fingers twice daily prn CLOBETASOL PROPIONATE 70295313757 No Longer Active Hyacinth Thuy Arias B COMPLEX-B12 TABS 1 PO daily B COMPLEX VITAMINS 56341072698 Active Hyacinth Thuy Arias ATENOLOL 50 MG TABS 1 po daily ATENOLOL 89921107050 Active Rocio Faulkner NEXIUM 40 MG CPDR 1 PO daily ESOMEPRAZOLE MAGNESIUM 87830860147 No Longer Active Hyacinthlinda Arias PEPCID AC 10 MG CHEW as directed FAMOTIDINE 33980085959 No Longer Active Hyacinth Thuy Arias LIPITOR 20 MG TABS 1 PO daily ATORVASTATIN CALCIUM 99481305423 No Longer Active Hyacinth Thuy Arias CLINDAMYCIN HCL 150 MG CAPS 1 PO QID for tooth abcess CLINDAMYCIN HCL 10274343611 No Longer Active Hyacinth Thuy Arias DICLOFENAC SODIUM 50 MG TBEC 1 po TID for 3 weeks DICLOFENAC SODIUM 01437853488 No Longer Active Hyacinth Thuy Arias CALTRATE 600 1500 MG TABS 1 po BID CALCIUM CARBONATE 35896477012 Active Hyacinth Thuy Arias INDERAL LA 80 MG CPCR 1 po daily PROPRANOLOL HCL 15757106162 No Longer Active Rocio Kaushik Immunizations Vaccine [...] 2.8 Encounters Code Encounter Date Provider Facility CPT-12683 Ofc Vst, Est Level III 15:01:23 [employer] ARCHITECT Hyacinth Thuy [facility] OFFICE CPT-25391 Ofc Vst, Est Level IV 19:17:51 [employer] Hyacinth Arias DO, PARKER CPT-33777 Ofc Vst, Est Level III 16:13:43 CDT [facility] Thuy [facility] OFFICE CPT-66686 Ofc Vst, Est Level III 15:37:41 CDT [facility]PT[facility]128 Ofc Vst, Est Level IV 14:47:33 CDT [facility] CPT-69088 Ofc Vst, Est Level IV 14:33:32 [employer] [facility]PT[facility]50 Ofc Vst, Est Level IV 14:27:50 CDT [facility] Thuy Arias [place] OFFICE CPT-00406 Ofc Vst, Est Level IV 15:03:28 CDT Hyacinth Thuy Arias [place] OFFICE CPT-91999 Ofc Vst, Est Level IV 15:57:36 CDT Hyacinth Thuy Castanon [place] DO, FACP CPT-91231 Ofc Vst, Est Level V 15:19:54 CDT Hyacinth Thuy Arias [place] OFFICE CPT-61927 Ofc Vst, Est Level IV 10:58:46 CDT Hyacinth Thuy Arias [place] OFFICE CPT-17556 Ofc Vst, Est Level IV 14:50:36 [employer] Hyacinth Arias [place] OFFICE CPT-48640 Ofc Vst, Est Level IV 14:30:17 [employer] Hyacinth Thuy Castanon Juana DO, FACP CPT-99336 Ofc Vst, Est Level IV 14:02:40 CDT Hyacinth Thuy Arias [place] OFFICE CPT-57371 Ofc Vst, Est Level IV 13:56:31 CDT Hyacinth Thuy Castanon Juana DO, FACP CPT-56916 Ofc Vst, Est Level IV 10:37:02 CDT Hyacinth Thuy Castanon Juana DO, FACP CPT-00798 Ofc Vst, Est Level IV 14:05:52 [employer] Hyacinth Thuy Arias [place] OFFICE CPT-56862 Ofc Vst, Est Level IV 16:33:25 CDT Hyacinth Thuy Arias [place] OFFICE CPT-47452 Ofc Vst, Est Level V 21:04:23 CDT Hyacinth Thuy Arias [place] OFFICE CPT-30650 Ofc Vst, Est Level IV 16:16:21 CDT Hyacinth Thuy Castanon Juana DO, FACP CPT-71427 Ofc Vst, Est Level IV 15:51:25 CDT Hyacinth Daley [place] Claros Kina Juana, DO, FACP CPT-80380 Ofc Vst, Est Level IV 14:48:14 [employer] Hyacinth Thuy Valener Hyacinth Kina Juana, DO, FACP CPT-00097 Ofc Vst, Est Level IV 16:27:03 CDT Hyacinth Thuy [place] Arias, DO, FACP CPT-26188 Ofc Vst, Est Level IV 15:52:01 CDT Hyacinth Parryanne Juana [facility] [place] CPT-89076 Ofc Vst, Est Level IV 16:35:52 [employer] Hyacinth Arias [facility] [place] CPT-25632 Ofc Vst, Est Level IV 16:35:15 CDT Hyacinth Arias [facility] Phys[facility] [place] CPT-95509 Ofc Vst, Est Level IV 16:09:46 [employer]CH[employer] Hyacinth Arias [facility] Phys[facility] [place] CPT-24267 Ofc Vst, Est Level IV 09:38:44 [employer]CH[employer] Hyacinthlinda Arias [facility] Physician [place] CPT-72681 Ofc Vst, Est Level IV 16:28:20 [employer] Hyacinth Arias [facility] Physician [place] CPT-44739 Ofc Vst, Est Level III 18:01:30 [employer] Hyacinthlinda Arias [facility] Physician [place] CPT-66941 Ofc Vst, New Level III 17:57:[address] [facility] Physician [place] Procedures Code Procedure Name Date Entry Date Standard Description CPT-67370 Preventive, Est, (65+) 17:03:59 CDT CPT-G8445 E-Prescribing Not sent due to no medication given 16:13: 43 CDT CPT-G8445 E-Prescribing Not sent due to no medication given 15:37: 41 CDT CPT-G8445 E-Prescribing Not sent due to no medication given 16:05: 00 [employer] CPT-G0438 Medicare Annual Wellness Visit Initial 16:05:00 [employer] CPT-46025 Injection 10:37:02 CDT
--- OUTSIDE RECORDS SUMMARY | 2018-08-20 08:42 | XMS REPORT | Clinical Summary ---
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 Active Hyacinth Arias Coronary atherosclerosis of [place] coronary artery CHF 428.0 Active Hyacinth Arias [...] Instructions Start Date Stop Date Generic Name [facility] Status Provider Patient Instruction LISINOPRIL 5 MG TABS 1 po daily to protect Kidneys LISINOPRIL 40174514255 Active Hyacinthlinda Arias CLARITIN 10 MG TAB 1 PO daily LORATADINE 46252874299 Active Hyacinth Arias COUMADIN [address] Zamarripa WARFARIN SODIUM 12178369361 Active Hyacinthlinda Arias MULTIVITAMINS TABS 1 po daily MULTIPLE VITAMIN 09055187006 No Longer Active Hyacinthlinda Arias OMEPRAZOLE 40 MG CPDR 1 PO Daily OMEPRAZOLE 74258025487 Active Rocio Faulkner HYDROCODONE-ACETAMINOPHEN 5-325 MG TABS 1-2 PO Q4-6 hrs prn pain HYDROCODONE-ACETAMINOPHEN 27377730037 Active Hyacinthlinda Arias FLOVENT HFA 220 MCG/ACT AERO 2 puff BID prn FLUTICASONE PROPIONATE HFA 81127663514 No Longer Active Hyacinth Arias TUSSINEX PENNKINETIC ER 4-10 (CHLORPHENIRAMINE/HYDROCODONE) 1 tsp Q12hrs 2009 TUSSINEX PENNKINETIC ER 4-10 (CHLORPHENIRAMINE/HYDROCODONE) No Longer Active Hyacinthlinda Arias FLONASE 50 MCG/DOSE INHALANT 1 puff each nostril BID FLONASE 50 MCG/DOSE INHALANT 56236532104 No Longer Active Hyacinthlinda Arias PROTONIX 40 MG TBEC 1 po qd PANTOPRAZOLE SODIUM 93752630189 No Longer Active Hyacinthlinda Arias OMEPRAZOLE 20 MG TBEC 1 PO daily OMEPRAZOLE 61593691780 No Longer Active Hyacinthlinda Arias PROAIR HFA 108 (90 BASE) MCG/ACT AERS 2 puff Q4 hrs prn wheezing ALBUTEROL SULFATE 94732851765 No Longer Active Hyacinth Arias PRADAXA 150 MG CAPS 1 PO BID DABIGATRAN ETEXILATE MESYLATE 18003755672 No Longer Active Rocio Faulkner ZOCOR 40 MG TABS 1 PO daily SIMVASTATIN 09692025131 Active Hyacinth Thuy Arias NORVASC 2.5 MG TAB 1 PO daily AMLODIPINE BESYLATE 40073817880 Active Rocio Faulkner PRADAXA 150MG 1 PO BID PRADAXA 150MG No Longer Active Hyacinth Thuy Arias COUMADIN 5 MG TABS 1 po daily at 6 pm WARFARIN SODIUM 62529825787 No Longer Active Hyacinth Thuy Arias LOVENOX 80 MG/0.8ML SOLN 80mg sq q 12 hrs ENOXAPARIN SODIUM 77871037719 No Longer Active Hyacinth Thuy Arias ASPIRIN 325 MG TAB 1 PO QD OTC ASPIRIN 53637365779 No Longer Active Hyacinth Thuy Arias IRON (FERROUS GLUCONATE) 325 MG TAB 1 PO daily IRON (FERROUS GLUCONATE) 325 MG TAB No Longer Active Hyacinth Thuy Arias PROAIR HFA 108 (90 BASE) MCG/ACT AERS 2 puff Q4 hrs prn wheezing ALBUTEROL SULFATE 82766728995 No Longer Active Hyacinth Thuy Arias ADVAIR DISKUS 250-50 MCG/DOSE MISC 1 Puff BID FLUTICASONE-SALMETEROL 62216454878 No Longer Active Hyacinth Thuy Arias LORTAB 5 5-500 MG TABS 1 to 2 PO Q6hrs prn ACETAMINOPHEN-HYDROCODONE 00912016631 No Longer Active Hyacinth Thuy Arias HYDROCODONE-HOMATROPINE 5-1.5 MG/5ML SYRP 1 tsp PO Q4hrs prn 2009 HYDROCODONE-HOMATROPINE 50531063378 No Longer Active Hyacinth Thuy Arias TESSALON 200 MG CAPS 1 PO TID prn cough BENZONATATE 74672952917 No Longer Active Hyacinth Thuy Arias PREDNISONE 20 MG TAB 3 pills daily at once for 2 days, 2 pills daily at once for 2 days, 1 once daily for 2 days PREDNISONE 01605718657 No Longer Active Hyacinthlinda Arias BIAXIN XL PAC 500 MG TB24 2 pills at same time daily for 7 days CLARITHROMYCIN 69329954374 No Longer Active Hyacinthlinda Arias FERROUS SULFATE CR 325 MG TBCR 1 po BID with meals FERROUS SULFATE 17299302227 No Longer Active Hyacinth Thuy Arias FISH OIL 500 MG CAPS 1 PO daily OMEGA-3 FATTY ACIDS 15831958027 Active Hyacinthlinda Arias AMOXICILLIN 500 MG CAPS 1 po TID x 14 days AMOXICILLIN 96894336283 No Longer Active Hyacinthlinda Arias LOVENOX 40 MG/0.4ML SOLN 1 injection daily x 10 days ENOXAPARIN SODIUM 29957381333 No Longer Active Hyacinthlinda Arias CLOBETASOL PROPIONATE 0.05 % OINT Apply to affected areas on fingers twice daily prn CLOBETASOL PROPIONATE 93680471758 No Longer Active Hyacinth Arias B COMPLEX-B12 TABS 1 PO daily B COMPLEX VITAMINS 95908423415 Active Hyacinthlinda Arias ATENOLOL 50 MG TABS 1 po daily ATENOLOL 87610703611 Active Rocio Faulkner NEXIUM 40 MG CPDR 1 PO daily ESOMEPRAZOLE MAGNESIUM 08902138186 No Longer Active Hyacinthlinda Arias PEPCID AC 10 MG CHEW as directed FAMOTIDINE 65341237300 No Longer Active Hyacinthlinda Arias LIPITOR 20 MG TABS 1 PO daily ATORVASTATIN CALCIUM 46875561668 No Longer Active Hyacinthlinda Arias CLINDAMYCIN HCL 150 MG CAPS 1 PO QID for tooth abcess CLINDAMYCIN HCL 12659452481 No Longer Active Hyacinthlinda Arias DICLOFENAC SODIUM 50 MG TBEC 1 po TID for 3 weeks DICLOFENAC SODIUM 03064718870 No Longer Active Hyacinth Arias CALTRATE 600 1500 MG TABS 1 po BID CALCIUM CARBONATE 62853176263 Active Hyacinth Arias INDERAL LA 80 MG CPCR 1 po daily PROPRANOLOL HCL 13866883080 No Longer Active Rocio Faulkner Immunizations Vaccine [...] 2.8 Encounters Code Encounter Date Provider Facility CPT-54991 Ofc Vst, Est Level III 15:01:23 CONSTRUCTION PERSON Hyacinth [facility] OFFICE CPT-77339 Ofc Vst, Est Level IV 19:17:51 CONSTRUCTION PERSON Hyacinth Thuy Stormi Kina DO [place], FACP CPT-47013 Ofc Vst, Est Level III 16:13:43 CDT Hyacinth [facility] CPT-55383 Ofc Vst, Est Level III 15:37:41 CDT Hyacinth [facility] OFFICE CPT-17976 Ofc Vst, Est Level IV 14:47:33 CDT Hyacinth [facility] OFFICE CPT-10674 Ofc Vst, Est Level IV 14:33:32 CONSTRUCTION PERSON Hyacinth [facility] CPT-21418 Ofc Vst, Est Level IV 14:27:50 CDT Hyacinth [facility] CPT-81670 Ofc Vst, Est Level IV 15:03:28 CDT Hyacinth [facility] OFFICE CPT-55124 Ofc Vst, Est Level IV 15:57:36 CDT [facility] [place], F[facility] CPT-27720 Ofc Vst, Est Level V 15:19:54 CDT [facility] CPT-54281 Ofc Vst, Est Level IV 10:58:46 CDT Hyacinth [facility] CPT-47031 Ofc Vst, Est Level IV 14:50:36 CONSTRUCTION PERSON Hyacinth [facility] CPT-67881 Ofc Vst, Est Level IV 14:30:17 CONSTRUCTION PERSON Hyacinth Thuy Stormi S Juana DO, FACP CPT-40574 Ofc Vst, Est Level IV 14:02:40 [facility] Ofc Vst, Est Level IV 13:56:31 CDT Hyacinth Thuy Valener Hyacinth S Arias, DO, FACP CPT-28996 Ofc Vst, Est Level IV 10:37:02 CDT Hyacinth Daley [place] Arias, DO, FACP CPT-94159 Ofc Vst, Est Level IV 14:05:52 CONSTRUCTION PERSON Hyacinth Valener [facility] OFF[facility] CPT-79965 Ofc Vst, Est Level IV 16:33:25 CDT Hyacinthlinda Daley Arias [facility] CPT-37469 Ofc Vst, Est Level V 21:04:23 CDT Hyacinthlinda Valener [facility] CPT-85882 Ofc Vst, Est Level IV 16:16:21 CDT Hyacinth Thuy [place] Arias, DO, FACP CPT-57775 Ofc Vst, Est Level IV 15:51:25 CDT Hyacinthlinda Daley [place] Arias, DO, FACP CPT-69059 Ofc Vst, Est Level IV 14:48:14 CONSTRUCTION PERSON Hyacinth Daley [place] Arias, DO, FACP CPT-64025 Ofc Vst, Est Level IV 16:27:03 CDT Hyacinth Thuy [place] Arias, DO, FACP CPT-42033 Ofc Vst, Est Level IV 15:52:[address] [facility] [place] CPT-78168 Ofc Vst, Est Level IV 16:35:52 CONSTRUCTION PERSON Hyacinth Arias [facility] [place] CPT-86583 Ofc Vst, Est Level IV 16:35:[address] [facility] [place] CPT-31269 Ofc Vst, Est Level IV 16:09:46 CONSTRUCTION PERSON Hyacinth Arias [facility] [place] CPT-93555 Ofc Vst, Est Level IV 09:38:44 CONSTRUCTION PERSON Hyacinth Arias [facility] [place] CPT-96398 Ofc Vst, Est Level IV 16:28:20 CONSTRUCTION PERSON Hyacinth Arias [facility] [place] CPT-16578 Ofc Vst, Est Level III 18:01:30 CONSTRUCTION PERSON Hyacinth Arias [facility] [place] CPT-33788 Ofc Vst, New Level III 17:57:02 CDT Hyacinth Arias [facility] [place] Procedures Code Procedure Name Date Entry Date Standard Description CPT-G0439 Medicare Annual Wellness Visit 16:42:25 CDT CPT-16079 Preventive, Est, (65+) 17:03:59 CDT CPT-G8445 E-Prescribing Not sent due to no medication given 16:13: 43 CDT CPT-G8445 E-Prescribing Not sent due to no medication given 15:37: 41 CDT CPT-G8445 E-Prescribing Not sent due to no medication given 16:05: 00 CONSTRUCTION PERSON CPT-G0438 Medicare Annual Wellness Visit Initial 16:05:00 CONSTRUCTION PERSON CPT-93430 Injection 10:37:02 CDT
--- OUTSIDE RECORDS SUMMARY | 2018-08-20 08:42 | XMS REPORT | Clinical Summary ---
Author Author User, [employer] Organization [facility] [place] Address Unknown Phone Unavailable Allergies, Adverse Reactions, [...] Active Hyacinth Arias Atrial fibrillation CORONARY ATHEROSCLEROSIS, CACHIL DEHE VESSEL 414.01 Active Hyacinth Arias Coronary atherosclerosis of [place] coronary artery CHF 428.0 Active Hyacinth Arias [...] Instructions Start Date Stop Date Generic Name ND Status Provider Patient Instruction COUMADIN [address] Zamarripa WARFARIN SODIUM 03063638898 Active Hyacinth Thuy Arias MULTIVITAMINS TABS 1 po daily MULTIPLE VITAMIN 37741476000 No Longer Active Hyacinthlinda Arias OMEPRAZOLE 40 MG CPDR 1 PO Daily OMEPRAZOLE 53564432767 Active Hyacinth Thuy Arias HYDROCODONE-ACETAMINOPHEN 5-325 MG TABS 1-2 PO Q4-6 hrs prn pain HYDROCODONE-ACETAMINOPHEN 98703824851 Active Hyacinth Thuy Arias FLOVENT HFA 220 MCG/ACT AERO 2 puff BID prn FLUTICASONE PROPIONATE HFA 29087666860 No Longer Active Hyacinthlinda Arias TUSSINEX PENNKINETIC ER 4-10 (CHLORPHENIRAMINE/HYDROCODONE) 1 tsp Q12hrs 2009 TUSSINEX PENNKINETIC ER 4-10 (CHLORPHENIRAMINE/HYDROCODONE) No Longer Active Hyacinthlinda Arias FLONASE 50 MCG/DOSE INHALANT 1 puff each nostril BID FLONASE 50 MCG/DOSE INHALANT 74132005334 No Longer Active Hyacinthlinda Arias PROTONIX 40 MG TBEC 1 po qd PANTOPRAZOLE SODIUM 68416611054 No Longer Active Hyacinthlinda Arias OMEPRAZOLE 20 MG TBEC 1 PO daily OMEPRAZOLE 59934915897 No Longer Active Hyacinthlinda Arias PROAIR HFA 108 (90 BASE) MCG/ACT AERS 2 puff Q4 hrs prn wheezing ALBUTEROL SULFATE 77607771786 No Longer Active Hyacinthlinda Arias PRADAXA 150 MG CAPS 1 PO BID DABIGATRAN ETEXILATE MESYLATE 12552898126 No Longer Active Rocio Faulkner ZOCOR 40 MG TABS 1 PO daily SIMVASTATIN 75634115408 Active Hyacinth Thuy Arias NORVASC 2.5 MG TAB 1 PO daily AMLODIPINE BESYLATE 74940591075 Active Rocio Faulkner PRADAXA 150MG 1 PO BID PRADAXA 150MG No Longer Active Hyacinth Thuy Arias COUMADIN 5 MG TABS 1 po daily at 6 pm WARFARIN SODIUM 48271297808 No Longer Active Hyacinth Thuy Arias LOVENOX 80 MG/0.8ML SOLN 80mg sq q 12 hrs ENOXAPARIN SODIUM 57281445296 No Longer Active Hyacinth Thuy Arias ASPIRIN 325 MG TAB 1 PO QD OTC ASPIRIN 53667874869 No Longer Active Hyacinth Thuy Arias IRON (FERROUS GLUCONATE) 325 MG TAB 1 PO daily IRON (FERROUS GLUCONATE) 325 MG TAB No Longer Active Hyacinth Thuy Arias PROAIR HFA 108 (90 BASE) MCG/ACT AERS 2 puff Q4 hrs prn wheezing ALBUTEROL SULFATE 06635292921 No Longer Active Hyacinth Thuy Arias ADVAIR DISKUS 250-50 MCG/DOSE MISC 1 Puff BID FLUTICASONE-SALMETEROL 05174523205 No Longer Active Hyacinth Thuy Arias LORTAB 5 5-500 MG TABS 1 to 2 PO Q6hrs prn ACETAMINOPHEN-HYDROCODONE 39032778822 No Longer Active Hyacinth Thuy Arias HYDROCODONE-HOMATROPINE 5-1.5 MG/5ML SYRP 1 tsp PO Q4hrs prn 2009 HYDROCODONE-HOMATROPINE 81286277062 No Longer Active Hyacinth Thuy Arias TESSALON 200 MG CAPS 1 PO TID prn cough BENZONATATE 37962063531 No Longer Active Hyacinth Thuy Arias PREDNISONE 20 MG TAB 3 pills daily at once for 2 days, 2 pills daily at once for 2 days, 1 once daily for 2 days PREDNISONE 36234063823 No Longer Active Hyacinth Thuy Arias BIAXIN XL PAC 500 MG TB24 2 pills at same time daily for 7 days CLARITHROMYCIN 90276880619 No Longer Active Hyacinth Thuy Arias FERROUS SULFATE CR 325 MG TBCR 1 po BID with meals FERROUS SULFATE 60762327928 No Longer Active Hyacinth Thuy Arias FISH OIL 500 MG CAPS 1 PO daily OMEGA-3 FATTY ACIDS 19647207186 Active Hyacinth Thuy Arias AMOXICILLIN 500 MG CAPS 1 po TID x 14 days AMOXICILLIN 49455445710 No Longer Active Hyacinth Thuy Arias LOVENOX 40 MG/0.4ML SOLN 1 injection daily x 10 days ENOXAPARIN SODIUM 39269075630 No Longer Active Hyacinth Thuy Arias CLOBETASOL PROPIONATE 0.05 % OINT Apply to affected areas on fingers twice daily prn CLOBETASOL PROPIONATE 43153081095 No Longer Active Hyacinth Thuy Arias B COMPLEX-B12 TABS 1 PO daily B COMPLEX VITAMINS 59822506965 Active Hyacinth Thuy Arias ATENOLOL 50 MG TABS 1 po daily ATENOLOL 74144255143 Active Rocio Faulkner NEXIUM 40 MG CPDR 1 PO daily ESOMEPRAZOLE MAGNESIUM 52090543679 No Longer Active Hyacinth Thuy Arias PEPCID AC 10 MG CHEW as directed FAMOTIDINE 54929049288 No Longer Active Hyacinth Thuy Arias LIPITOR 20 MG TABS 1 PO daily ATORVASTATIN CALCIUM 39419103619 No Longer Active Hyacinth Thuy Arias CLINDAMYCIN HCL 150 MG CAPS 1 PO QID for tooth abcess CLINDAMYCIN HCL 30507902317 No Longer Active Hyacinth Thuy Arias DICLOFENAC SODIUM 50 MG TBEC 1 po TID for 3 weeks DICLOFENAC SODIUM 79712242612 No Longer Active Hyacinth Thuy Arias CALTRATE 600 1500 MG TABS 1 po BID CALCIUM CARBONATE 83097886031 Active Hyacinth Thuy Arias INDERAL LA 80 MG CPCR 1 po daily PROPRANOLOL HCL 96652233715 No Longer Active Rocio Kaushik Immunizations Vaccine [...] 2.8 Encounters Code Encounter Date Provider Facility CPT-66129 Ofc Vst, Est Level III 15:01:23 [employer]OMOTIVE TIRE TECHNICIAN [facility]56 Ofc Vst, Est Level IV 19:17:51 AUTOMOTIVE TIRE TECHNICIAN Hyacinth Arias DO, PARKER CPT-85348 Ofc Vst, Est Level III 16:13:43 CDT [facility] Thuy [facility] OFFICE CPT-56442 Ofc Vst, Est Level III 15:37:41 CDT [facility]18131 Ofc Vst, Est Level IV 14:47:33 CDT [facility]10767 Ofc Vst, Est Level IV 14:33:32 AUTOMOTIVE TIRE TECHNICIAN [facility] CPT[facility]31958 Ofc Vst, Est Level IV 14:27:50 CDT [facility] Thuy Arias [facility] OFFICE CPT-24627 Ofc Vst, Est Level IV 15:03:28 CDT Hyacinth Thuy Arias [facility] OFF[facility] CPT-77293 Ofc Vst, Est Level IV 15:57:36 CDT Hyacinth Thuy Castanon Juana DO, FACP CPT-98511 Ofc Vst, Est Level V 15:19:54 CDT Hyacinth Thuy Arias [facility] OFFICE CPT-11611 Ofc Vst, Est Level IV 10:58:46 CDT Hyacinth Thuy Arias [facility] OFF[facility] CPT-72651 Ofc Vst, Est Level IV 14:50:36 AUTOMOTIVE TIRE TECHNICIAN Hyacinth Arias [facility] OFFICE CPT-14496 Ofc Vst, Est Level IV 14:30:17 AUTOMOTIVE TIRE TECHNICIAN Hyacinth Thuy Castanon Juana DO, FACP CPT-83735 Ofc Vst, Est Level IV 14:02:40 CDT Hyacinth Thuy Arias [facility] OFFICE CPT-37444 Ofc Vst, Est Level IV 13:56:31 CDT Hyacinth Thuy Castanon Juana, DO, FACP CPT-00788 Ofc Vst, Est Level IV 10:37:02 CDT Hyacinth Thuy Castanon Juana DO, FACP CPT-52065 Ofc Vst, Est Level IV 14:05:52 AUTOMOTIVE TIRE TECHNICIAN Hyacinth Thuy Arias [facility] OFFICE CPT-72669 Ofc Vst, Est Level IV 16:33:25 CDT Hyacinth Thuy Arias [facility] OFFICE CPT-00834 Ofc Vst, Est Level V 21:04:23 CDT Hyacinth Thuy Arias [facility] OFFICE CPT-91294 Ofc Vst, Est Level IV 16:16:21 CDT Hyacinth Thuy Castanon Juana DO, FACP CPT-68046 Ofc Vst, Est Level IV 15:51:25 CDT Hyacinth Thuy Arias Hyacinth Kina Arias, DO, FACP CPT-98954 Ofc Vst, Est Level IV 14:48:14 AUTOMOTIVE TIRE TECHNICIAN Hyacinth Valener Hyacinth Kina Juana, DO, FACP CPT-34278 Ofc Vst, Est Level IV 16:27:03 CDT Hyacinth Daley [place] Arias, DO, FACP CPT-21559 Ofc Vst, Est Level IV 15:52:[address] [place]ana [facility] [place] CPT-41739 Ofc Vst, Est Level IV 16:35:52 AUTOMOTIVE TIRE TECHNICIAN Hyacinth Arias [facility] [place] CPT-61756 Ofc Vst, Est Level IV 16:35:15 CDT Hyacinth Thuycandi Arias [facility] [place] CPT-49220 Ofc Vst, Est Level IV 16:09:46 AUTOMOTIVE TIRE TECHNICIAN Hyacinth Thuycandi Arias [facility] [place] CPT-13087 Ofc Vst, Est Level IV 09:38:44 AUTOMOTIVE TIRE TECHNICIAN Hyacinthlinda Arias [facility] [place] CPT-76913 Ofc Vst, Est Level IV 16:28:20 AUTOMOTIVE TIRE TECHNICIAN Hyacinth Arias [facility] [place] CPT-64227 Ofc Vst, Est Level III 18:01:30 AUTOMOTIVE TIRE TECHNICIAN Hyacinth Thuycandi Arias [facility] [place] CPT-70101 Ofc Vst, New Level III 17:57:02 [address] Ari[address] [facility] [place] Procedures Code Procedure Name Date Entry Date Standard Description CPT-55179 Preventive, Est, (65+) 17:03:59 CDT CPT-G8445 E-Prescribing Not sent due to no medication given 16:13: 43 CDT CPT-G8445 E-Prescribing Not sent due to no medication given 15:37: 41 CDT CPT-G8445 E-Prescribing Not sent due to no medication given 16:05: 00 AUTOMOTIVE TIRE TECHNICIAN CPT-G0438 Medicare Annual Wellness Visit Initial 16:05:00 AUTOMOTIVE TIRE TECHNICIAN CPT-63177 Injection 10:37:02 CDT
--- OUTSIDE RECORDS SUMMARY | 2018-08-20 08:43 | XMS REPORT | Clinical Summary ---
Author Author User, [employer] Organization Formerly [facility] Physician [place] Address Unknown Phone Unavailable Allergies, Adverse Reactions, [...] Active Hyacinth Arias Atrial fibrillation CORONARY ATHEROSCLEROSIS, [place] VESSEL 414.01 Active Hyacinth Arias Coronary atherosclerosis of [place] coronary artery CHF 428.0 Active Hyacinth Arias [...] Instructions Start Date Stop Date Generic Name [facility] Status Provider Patient Instruction LISINOPRIL 5 MG TABS 1 po daily to protect Kidneys LISINOPRIL 90582637207 Active Hyacinthlinda Arias CLARITIN 10 MG TAB 1 PO daily LORATADINE 41934828375 Active Hyacinth Arias COUMADIN [address] Zamarripa WARFARIN SODIUM 61203485253 Active Hyacinthlinda Arias MULTIVITAMINS TABS 1 po daily MULTIPLE VITAMIN 85311404602 No Longer Active Hyacinthlinda Arias OMEPRAZOLE 40 MG CPDR 1 PO Daily OMEPRAZOLE 91692673150 Active Rocio Faulkner HYDROCODONE-ACETAMINOPHEN 5-325 MG TABS 1-2 PO Q4-6 hrs prn pain HYDROCODONE-ACETAMINOPHEN 29012016176 Active Hyacinthlinda Arias FLOVENT HFA 220 MCG/ACT AERO 2 puff BID prn FLUTICASONE PROPIONATE HFA 53911827397 No Longer Active Hyacinth Arias TUSSINEX PENNKINETIC ER 4-10 (CHLORPHENIRAMINE/HYDROCODONE) 1 tsp Q12hrs 2009 TUSSINEX PENNKINETIC ER 4-10 (CHLORPHENIRAMINE/HYDROCODONE) No Longer Active Hyacinthlinda Arias FLONASE 50 MCG/DOSE INHALANT 1 puff each nostril BID FLONASE 50 MCG/DOSE INHALANT 82917147094 No Longer Active Hyacinthlinda Arias PROTONIX 40 MG TBEC 1 po qd PANTOPRAZOLE SODIUM 12172109405 No Longer Active Hyacinthlinda Arias OMEPRAZOLE 20 MG TBEC 1 PO daily OMEPRAZOLE 15868901784 No Longer Active Hyacinthlinda Arias PROAIR HFA 108 (90 BASE) MCG/ACT AERS 2 puff Q4 hrs prn wheezing ALBUTEROL SULFATE 80391843442 No Longer Active Hyacinth Arias PRADAXA 150 MG CAPS 1 PO BID DABIGATRAN ETEXILATE MESYLATE 21517092036 No Longer Active Rocio Faulkner ZOCOR 40 MG TABS 1 PO daily SIMVASTATIN 65699287027 Active Hyacinth Thuy Arias NORVASC 2.5 MG TAB 1 PO daily AMLODIPINE BESYLATE 48608219438 Active Rocio Faulkner PRADAXA 150MG 1 PO BID PRADAXA 150MG No Longer Active Hyacinth Thuy Arias COUMADIN 5 MG TABS 1 po daily at 6 pm WARFARIN SODIUM 35161204142 No Longer Active Hyacinth Thuy Arias LOVENOX 80 MG/0.8ML SOLN 80mg sq q 12 hrs ENOXAPARIN SODIUM 76663577937 No Longer Active Hyacinth Thuy Arias ASPIRIN 325 MG TAB 1 PO QD OTC ASPIRIN 35066770630 No Longer Active Hyacinth Thuy Arias IRON (FERROUS GLUCONATE) 325 MG TAB 1 PO daily IRON (FERROUS GLUCONATE) 325 MG TAB No Longer Active Hyacinth Thuy Arias PROAIR HFA 108 (90 BASE) MCG/ACT AERS 2 puff Q4 hrs prn wheezing ALBUTEROL SULFATE 12127773522 No Longer Active Hyacinth Thuy Arias ADVAIR DISKUS 250-50 MCG/DOSE MISC 1 Puff BID FLUTICASONE-SALMETEROL 80338761952 No Longer Active Hyacinth Thuy Arias LORTAB 5 5-500 MG TABS 1 to 2 PO Q6hrs prn ACETAMINOPHEN-HYDROCODONE 52954748098 No Longer Active Hyacinth Thuy Arias HYDROCODONE-HOMATROPINE 5-1.5 MG/5ML SYRP 1 tsp PO Q4hrs prn 2009 HYDROCODONE-HOMATROPINE 08590694953 No Longer Active Hyacinth Thuy Arias TESSALON 200 MG CAPS 1 PO TID prn cough BENZONATATE 76066045221 No Longer Active Hyacinth Thuy Arias PREDNISONE 20 MG TAB 3 pills daily at once for 2 days, 2 pills daily at once for 2 days, 1 once daily for 2 days PREDNISONE 26451444079 No Longer Active Hyacinthlinda Arias BIAXIN XL PAC 500 MG TB24 2 pills at same time daily for 7 days CLARITHROMYCIN 97033495375 No Longer Active Hyacinthlinda Arias FERROUS SULFATE CR 325 MG TBCR 1 po BID with meals FERROUS SULFATE 94242480532 No Longer Active Hyacinth Thuy Arias FISH OIL 500 MG CAPS 1 PO daily OMEGA-3 FATTY ACIDS 30456564248 Active Hyacinthlinda Arias AMOXICILLIN 500 MG CAPS 1 po TID x 14 days AMOXICILLIN 90615426620 No Longer Active Hyacinthlinda Arias LOVENOX 40 MG/0.4ML SOLN 1 injection daily x 10 days ENOXAPARIN SODIUM 45489863665 No Longer Active Hyacinthlinda Arias CLOBETASOL PROPIONATE 0.05 % OINT Apply to affected areas on fingers twice daily prn CLOBETASOL PROPIONATE 93832304011 No Longer Active Hyacinth Arias B COMPLEX-B12 TABS 1 PO daily B COMPLEX VITAMINS 65744380250 Active Hyacinthlinda Arias ATENOLOL 50 MG TABS 1 po daily ATENOLOL 76219350423 Active Rocio Faulkner NEXIUM 40 MG CPDR 1 PO daily ESOMEPRAZOLE MAGNESIUM 41472184182 No Longer Active Hyacinthlinda Arias PEPCID AC 10 MG CHEW as directed FAMOTIDINE 37009924394 No Longer Active Hyacinthlinda Arias LIPITOR 20 MG TABS 1 PO daily ATORVASTATIN CALCIUM 91751360143 No Longer Active Hyacinthlinda Arias CLINDAMYCIN HCL 150 MG CAPS 1 PO QID for tooth abcess CLINDAMYCIN HCL 42379600163 No Longer Active Hyacinthlinda Arias DICLOFENAC SODIUM 50 MG TBEC 1 po TID for 3 weeks DICLOFENAC SODIUM 11342616648 No Longer Active Hyacinth Arias CALTRATE 600 1500 MG TABS 1 po BID CALCIUM CARBONATE 91810638813 Active Hyacinth Arias INDERAL LA 80 MG CPCR 1 po daily PROPRANOLOL HCL 51686592347 No Longer Active Rocio Faulkner Immunizations Vaccine [...] 0.89 mg/dL HDL cholesterol, serum 84 mg/dL very low density lipoproteins 12 mg/dL [...] as % of total hemoglobin 6.10 % Clinical Lists Update: PT,INR - Coagulation prothrombin time (patient) 32.3 s prothrombin time (patient) 19.8 s international normalized ratio (INR) 1.8 international normalized ratio (INR) 3.0 Clinical Lists Update: PT,INR [facility] - Coagulation prothrombin time (patient) 20.3 s prothrombin time (patient) 25.9 s international normalized ratio (INR) 2.8 international normalized ratio (INR) 2.4 prothrombin time (patient) 21.6 s international normalized ratio (INR) 1.8 Encounters Code Encounter Date Provider Facility CPT-30857 Ofc Vst, Est Level III 15:01:23 [employer] [facility] CPT-30980 Ofc Vst, Est Level IV 19:17:51 [employer] Hyacinth Arias DO, FACP CPT-78952 Ofc Vst, Est Level III 16:13:[address] [facility] OFFICE CPT-11651 Ofc Vst, Est Level III 15:37:41 [facility] Ofc Vst, Est Level IV 14:47:33 CDT Hyacinth [facility] OFFICE CPT-78571 Ofc Vst, Est Level IV 14:33:32 [employer] Hyacinth [facility] OFFICE CPT-86482 Ofc Vst, Est Level IV 14:27:50 CDT Hyacinth [facility] OFFICE CPT-42814 Ofc Vst, Est Level IV 15:03:28 CDT Hyacinth [facility] OFFICE CPT-94769 Ofc Vst, Est Level IV 15:57:36 CDT Hyacinth Thuy Arias [facility] Kina Juana DO, FACP CPT-60340 Ofc Vst, Est Level V 15:19:54 CDT [facility] CPT-05080 Ofc Vst, Est Level IV 10:58:46 CDT [facility] Thuy [facility] CPT-89778 Ofc Vst, Est Level IV 14:50:36 [employer] [facility] Thuy [facility] CPT-09798 Ofc Vst, Est Level IV 14:30:17 [employer] [facility], FACP CPT-85957 Ofc Vst, Est Level IV 14:02:40 CDT [facility]PT-14463 Ofc Vst, Est Level IV 13:56:31 CDT [facility] Thuy Stormi S DO Juana, FACP CPT-21122 Ofc Vst, Est Level IV 10:37:02 CDT Hyacinth Thuy Arias [facility] Juana DO, FACP CPT-77323 Ofc Vst, Est Level IV 14:05:52 [employer] Hyacinth Daley [place] OFFICE CPT-73940 Ofc Vst, Est Level IV 16:33:25 CDT Hyacinth Thuy Val[place] OFFICE CPT-47617 Ofc Vst, Est Level V 21:04:23 CDT Hyacinth Thuy [place] OFFICE CPT-64412 Ofc Vst, Est Level IV 16:16:21 CDT Hyacinthlinda Daley [place] Arias, DO, FACP CPT-95018 Ofc Vst, Est Level IV 15:51:25 CDT Hyacinth ThuyOvi Arias, DO, FACP CPT-13206 Ofc Vst, Est Level IV 14:48:14 [employer] Hyacinth Arias, DO, FACP CPT-41514 Ofc Vst, Est Level IV 16:27:03 CDT Hyacinthlinda Daley [place] Arias, DO, FACP CPT-66405 Ofc Vst, Est Level IV 15:52:01 CDT Hyacinth Arias [facility] [place] CPT-48839 Ofc Vst, Est Level IV 16:35:52 [employer] Hyacinth Arias [facility] [place] CPT-56453 Ofc Vst, Est Level IV 16:35:15 CDT Hyacinth Arias [facility] [place] CPT-50251 Ofc Vst, Est Level IV 16:09:46 [employer] Hyacinth Arias [facility] [place] CPT-82893 Ofc Vst, Est Level IV 09:38:44 [employer] Hyacinth Arias [facility] [place] CPT-05679 Ofc Vst, Est Level IV 16:28:20 [employer] Hyacinth Arias [facility] [place] CPT-94333 Ofc Vst, Est Level III 18:01:30 [employer] Hyacinth Arias [facility] [place] CPT-23735 Ofc Vst, New Level III 17:57:02 CDT Hyacinth Arias [facility] Physician [place] Procedures Code Procedure Name Date Entry Date Standard Description CPT-G0439 Medicare Annual Wellness Visit 16:42:25 CDT CPT-72040 Preventive, Est, (65+) 17:03:59 CDT CPT-G8445 E-Prescribing Not sent due to no medication given 16:13: 43 CDT CPT-G8445 E-Prescribing Not sent due to no medication given 15:37: 41 CDT CPT-G8445 E-Prescribing Not sent due to no medication given 16:05: 00 [employer] CPT-G0438 Medicare Annual Wellness Visit Initial 16:05:00 [employer] CPT-79749 Injection 10:37:02 CDT
--- OUTSIDE RECORDS SUMMARY | 2018-08-20 08:43 | XMS REPORT | Clinical Summary ---
Author Author User, [place] Organization [facility] Physician [place] Address Unknown Phone Unavailable Allergies, Adverse Reactions, [...] Active Hyacinth Arias Atrial fibrillation CORONARY ATHEROSCLEROSIS, [place] VESSEL 414.01 Active Hyacinth Arias Coronary atherosclerosis of [place] coronary artery CHF 428.0 Active Hyacinth Arias [...] Instructions Start Date Stop Date Generic Name [facility] Status Provider Patient Instruction LISINOPRIL 5 MG TABS 1 po daily to protect Kidneys LISINOPRIL 41995983874 Active Hyacinth Arias CLARITIN 10 MG TAB 1 PO daily LORATADINE 08573154753 Active Hyacinth Arias COUMADIN [address] Zamarripa WARFARIN SODIUM 82247765253 Active Hyacinth Arias MULTIVITAMINS TABS 1 po daily MULTIPLE VITAMIN 06656984164 No Longer Active Hyacinthlinda Arias OMEPRAZOLE 40 MG CPDR 1 PO Daily OMEPRAZOLE 53536973840 Active Rocio Faulkner HYDROCODONE-ACETAMINOPHEN 5-325 MG TABS 1-2 PO Q4-6 hrs prn pain HYDROCODONE-ACETAMINOPHEN 47148544777 Active Hyacinthlinda Arias FLOVENT HFA 220 MCG/ACT AERO 2 puff BID prn FLUTICASONE PROPIONATE HFA 55748339506 No Longer Active Hyacinth Arias TUSSINEX PENNKINETIC ER 4-10 (CHLORPHENIRAMINE/HYDROCODONE) 1 tsp Q12hrs 2009 TUSSINEX PENNKINETIC ER 4-10 (CHLORPHENIRAMINE/HYDROCODONE) No Longer Active Hyacinthlinda Arias FLONASE 50 MCG/DOSE INHALANT 1 puff each nostril BID FLONASE 50 MCG/DOSE INHALANT 39942067182 No Longer Active Hyacinthlinda Arias PROTONIX 40 MG TBEC 1 po qd PANTOPRAZOLE SODIUM 98337122979 No Longer Active Hyacinth Arias OMEPRAZOLE 20 MG TBEC 1 PO daily OMEPRAZOLE 14049149471 No Longer Active Hyacinthlinda Arias PROAIR HFA 108 (90 BASE) MCG/ACT AERS 2 puff Q4 hrs prn wheezing ALBUTEROL SULFATE 26196761727 No Longer Active Hyacinth Arias PRADAXA 150 MG CAPS 1 PO BID DABIGATRAN ETEXILATE MESYLATE 72108035399 No Longer Active Rocio Faulkner ZOCOR 40 MG TABS 1 PO daily SIMVASTATIN 15002331537 Active Hyacinth Thuy Arias NORVASC 2.5 MG TAB 1 PO daily AMLODIPINE BESYLATE 97671019509 Active Rocio Faulkner PRADAXA 150MG 1 PO BID PRADAXA 150MG No Longer Active Hyacinth Thuy Arias COUMADIN 5 MG TABS 1 po daily at 6 pm WARFARIN SODIUM 83935736737 No Longer Active Hyacinth Thuy Arias LOVENOX 80 MG/0.8ML SOLN 80mg sq q 12 hrs ENOXAPARIN SODIUM 68213939067 No Longer Active Hyacinth Thuy Arias ASPIRIN 325 MG TAB 1 PO QD OTC ASPIRIN 54334560253 No Longer Active Hyacinth Thuy Arias IRON (FERROUS GLUCONATE) 325 MG TAB 1 PO daily IRON (FERROUS GLUCONATE) 325 MG TAB No Longer Active Hyacinth Thuy Arias PROAIR HFA 108 (90 BASE) MCG/ACT AERS 2 puff Q4 hrs prn wheezing ALBUTEROL SULFATE 86443429287 No Longer Active Hyacinthlinda Arias ADVAIR DISKUS 250-50 MCG/DOSE MISC 1 Puff BID FLUTICASONE-SALMETEROL 06677654562 No Longer Active Hyacinth Thuy Arias LORTAB 5 5-500 MG TABS 1 to 2 PO Q6hrs prn ACETAMINOPHEN-HYDROCODONE 10885248295 No Longer Active Hyacinth Thuy Arias HYDROCODONE-HOMATROPINE 5-1.5 MG/5ML SYRP 1 tsp PO Q4hrs prn 2009 HYDROCODONE-HOMATROPINE 29818687822 No Longer Active Hyacinth Thuy Arias TESSALON 200 MG CAPS 1 PO TID prn cough BENZONATATE 48956756533 No Longer Active Hyacinth Thuy Arias PREDNISONE 20 MG TAB 3 pills daily at once for 2 days, 2 pills daily at once for 2 days, 1 once daily for 2 days PREDNISONE 36953943357 No Longer Active Hyacinthlinad Arias BIAXIN XL PAC 500 MG TB24 2 pills at same time daily for 7 days CLARITHROMYCIN 55105985529 No Longer Active Hyacinthlinda Arias FERROUS SULFATE CR 325 MG TBCR 1 po BID with meals FERROUS SULFATE 50360952749 No Longer Active Hyacinth Thuy Arias FISH OIL 500 MG CAPS 1 PO daily OMEGA-3 FATTY ACIDS 34172155685 Active Hyacinthlinda Arias AMOXICILLIN 500 MG CAPS 1 po TID x 14 days AMOXICILLIN 53807222083 No Longer Active Hyacinthlinda Arias LOVENOX 40 MG/0.4ML SOLN 1 injection daily x 10 days ENOXAPARIN SODIUM 00648719682 No Longer Active Hyacinthlinda Arias CLOBETASOL PROPIONATE 0.05 % OINT Apply to affected areas on fingers twice daily prn CLOBETASOL PROPIONATE 32745198092 No Longer Active Hyacinth Arias B COMPLEX-B12 TABS 1 PO daily B COMPLEX VITAMINS 78736346375 Active Hyacinthlinda Arias ATENOLOL 50 MG TABS 1 po daily ATENOLOL 33475541862 Active Rocio Faulkner NEXIUM 40 MG CPDR 1 PO daily ESOMEPRAZOLE MAGNESIUM 64229224212 No Longer Active Hyacinthlinda Arias PEPCID AC 10 MG CHEW as directed FAMOTIDINE 33149822347 No Longer Active Hyacinthlinda Arias LIPITOR 20 MG TABS 1 PO daily ATORVASTATIN CALCIUM 23956962988 No Longer Active Hyacinthlinda Arias CLINDAMYCIN HCL 150 MG CAPS 1 PO QID for tooth abcess CLINDAMYCIN HCL 01374634757 No Longer Active Hyacinthlinda Arias DICLOFENAC SODIUM 50 MG TBEC 1 po TID for 3 weeks DICLOFENAC SODIUM 45449662997 No Longer Active Hyacinth Arias CALTRATE 600 1500 MG TABS 1 po BID CALCIUM CARBONATE 70132857982 Active Hyacinth Arias INDERAL LA 80 MG CPCR 1 po daily PROPRANOLOL HCL 09220309237 No Longer Active Rocio Faulkner Immunizations Vaccine [...] 6.10 % LDL cholesterol, serum 98 mg/dL potassium, serum 4.4 mmol/L protein, total, serum 7.4 g/dL very low density lipoproteins 12 mg/dL cholesterol/HDL ratio, serum, percent 2.3 anion gap, serum 12 sodium, serum 137 mmol/L triglyceride, serum, fasting 61 mg/dL bilirubin, serum, total 1.0 mg/dL alanine aminotransferase (SGPT), serum 30 U/L aspartate aminotransferase (SGOT), serum 33 U/L Clinical Lists Update: PT,INR - Coagulation international normalized ratio (INR) 3.0 prothrombin time (patient) 32.3 s prothrombin time (patient) 19.8 s international normalized ratio (INR) 1.8 Clinical Lists Update: PT,INR [facility] - Coagulation international normalized ratio (INR) 2.0 prothrombin time (patient) 22.3 s Clinical Lists Update: PT,INR [facility] - Coagulation prothrombin time (patient) 24.5 s prothrombin time (patient) 25.9 s international normalized ratio (INR) 2.4 prothrombin time (patient) 20.3 s prothrombin time (patient) 21.6 s international normalized ratio (INR) 1.8 international normalized ratio (INR) 2.2 international normalized ratio (INR) 2.8 Encounters Code Encounter Date Provider Facility CPT-81520 Ofc Vst, Est Level III 15:01:23 [employer] [facility] Thuy [facility] OFFICE CPT-97701 Ofc Vst, Est Level IV 19:17:51 [employer] [facility] Thuy Stormi Kina Juana, DO, FACP CPT-91041 Ofc Vst, Est Level III 16:13:43 [facility] Ofc Vst, Est Level III 15:37:41 CDT [facility] CPT-24147 Ofc Vst, Est Level IV 14:47:33 CDT Hyacinth [facility] OFFICE CPT-98676 Ofc Vst, Est Level IV 14:33:32 [employer]FACT[employer]ING [employer]OMATION ENGINEER [facility] OFFICE CPT-54770 Ofc Vst, Est Level IV 14:27:50 CDT [facility] OFFICE CPT-40664 Ofc Vst, Est Level IV 15:03:28 CDT [facility] CPT-76373 Ofc Vst, Est Level IV 15:57:36 CDT [facility] Thuy Arias [facility] Kina Juana, DO, FACP CPT-36484 Ofc Vst, Est Level V 15:19:54 CDT [facility] CPT-49486 Ofc Vst, Est Level IV 10:58:46 CDT [facility] CPT-28575 Ofc Vst, Est Level IV 14:50:36 [employer]ING [employer] ENGINE[employer] [facility] CPT-10937 Ofc Vst, Est Level IV 14:30:17 [employer]FA[employer]ING [employer]OMATION ENGINEER [facility] Thuy Arias [facility] Juana, DO, FACP CPT-35731 Ofc Vst, Est Level IV 14:02:40 CDT [facility] CPT-41658 Ofc Vst, Est Level IV 13:56:31 CDT Hyacinth Thuy [place] Hyacinth Kina Juana, DO, FACP CPT-81136 Ofc Vst, Est Level IV 10:37:02 CDT Hyacinth Thuy Valeeriberto Arias, DO, FACP CPT-18318 Ofc Vst, Est Level IV 14:05:52 [employer]ING [employer]INEER Hyacinth Thuy Arias [place] OFFICE CPT-05815 Ofc Vst, Est Level IV 16:33:25 CDT Hyacinth Thuy Arias [place] OFFICE CPT-45249 Ofc Vst, Est Level V 21:04:23 CDT Hyacinth Thuy Valener [place] OFFICE CPT-70291 Ofc Vst, Est Level IV 16:16:21 CDT Hyacinth Thuy [place] Arias, DO, FACP CPT-74741 Ofc Vst, Est Level IV 15:51:25 CDT Hyacinth Thuy Arias Hyacinthlinda Arias, DO, FACP CPT-60844 Ofc Vst, Est Level IV 14:48:14 [employer] Hyacinth Thuy [place] Arias, DO, FACP CPT-20550 Ofc Vst, Est Level IV 16:27:03 CDT Hyacinth Thuy [place]ana Arias, DO, FACP CPT-14342 Ofc Vst, Est Level IV 15:52:01 CDT Hyacinthlinda Arias [facility] [place] CPT-38338 Ofc Vst, Est Level IV 16:35:52 [employer]ING [employer] Hyacinth Arias [facility] [place] CPT-47389 Ofc Vst, Est Level IV 16:35:15 CDT Hyacinth Thuy Arias [facility] [place] CPT-26043 Ofc Vst, Est Level IV 16:09:46 [employer]ING [employer]INE[employer] Hyacinth Arias [facility] [place] CPT-89239 Ofc Vst, Est Level IV 09:38:44 [employer]ING [employer] ENGINEER Hyacinth Arias [facility] [place] CPT-49657 Ofc Vst, Est Level IV 16:28:20 [employer]FA[employer]ING [employer]OMATION ENGINEER Hyacinth Arias [facility] [place] CPT-57800 Ofc Vst, Est Level III 18:01:30 [employer]FA[employer]ING [employer] ENGINEER Hyacinth Arias [facility] [place] CPT-72972 Ofc Vst, New Level III 17:57:02 CDT Hyacinth Arias [facility] [place] Procedures Code Procedure Name Date Entry Date Standard Description CPT-G0439 Medicare Annual Wellness Visit 16:42:25 CDT CPT-00406 Preventive, Est, (65+) 17:03:59 CDT CPT-G8445 E-Prescribing Not sent due to no medication given 16:13: 43 CDT CPT-G8445 E-Prescribing Not sent due to no medication given 15:37: 41 CDT CPT-G8445 E-Prescribing Not sent due to no medication given 16:05: 00 [employer] CPT-G0438 Medicare Annual Wellness Visit Initial 16:05:00 [employer]FA[employer]ING [employer]OMATION [employer]INEER CPT-48875 Injection 10:37:02 CDT
--- OUTSIDE RECORDS SUMMARY | 2018-08-20 08:44 | XMS REPORT | Clinical Summary ---
Author Author User, Delver Organization [facility] [place] Address Unknown Phone Unavailable Allergies, Adverse Reactions, [...] Arias Edema ATRIAL FIBRILLATION 427.31 Active Hyacinth Arisa Atrial fibrillation CORONARY ATHEROSCLEROSIS, [place] VESSEL 414.01 Active Hyacinth Arias Coronary atherosclerosis of [place] coronary artery CHF 428.0 Active Hyacinth Arias [...] Instructions Start Date Stop Date Generic Name [facility] Status Provider Patient Instruction COUMADIN [address] Zamarripa WARFARIN SODIUM [id number] Active Hyacinth Thuy Arias MULTIVITAMINS TABS 1 po daily MULTIPLE VITAMIN 69442837762 No Longer Active Hyacinthlinda Arias OMEPRAZOLE 40 MG CPDR 1 PO Daily OMEPRAZOLE 77927946531 Active Hyacinth Thuy Arias HYDROCODONE-ACETAMINOPHEN 5-325 MG TABS 1-2 PO Q4-6 hrs prn pain HYDROCODONE-ACETAMINOPHEN 04948030214 Active Hyacinth Thuy Arias FLOVENT HFA 220 MCG/ACT AERO 2 puff BID prn FLUTICASONE PROPIONATE HFA 66248065991 No Longer Active Hyacinthlinda Arias TUSSINEX PENNKINETIC ER 4-10 (CHLORPHENIRAMINE/HYDROCODONE) 1 tsp Q12hrs 2009 TUSSINEX PENNKINETIC ER 4-10 (CHLORPHENIRAMINE/HYDROCODONE) No Longer Active Hyacinthlinda Arias FLONASE 50 MCG/DOSE INHALANT 1 puff each nostril BID FLONASE 50 MCG/DOSE INHALANT 37727244566 No Longer Active Hyacinthlinda Arias PROTONIX 40 MG TBEC 1 po qd PANTOPRAZOLE SODIUM 83493256120 No Longer Active Hyacinthlinda Arias OMEPRAZOLE 20 MG TBEC 1 PO daily OMEPRAZOLE 61055567684 No Longer Active Hyacinthlinda Arias PROAIR HFA 108 (90 BASE) MCG/ACT AERS 2 puff Q4 hrs prn wheezing ALBUTEROL SULFATE 94211977708 No Longer Active Hyacinthlinda Arias PRADAXA 150 MG CAPS 1 PO BID DABIGATRAN ETEXILATE MESYLATE 22894004145 No Longer Active Rocio Faulkner ZOCOR 40 MG TABS 1 PO daily SIMVASTATIN 79502232105 Active Hyacinthlinda Arias NORVASC 2.5 MG TAB 1 PO daily AMLODIPINE BESYLATE 88847533500 Active Rocio Faulkner PRADAXA 150MG 1 PO BID PRADAXA 150MG No Longer Active Hyacinth Thuy Arias COUMADIN 5 MG TABS 1 po daily at 6 pm WARFARIN SODIUM 83779797028 No Longer Active Hyacinth Thuy Arias LOVENOX 80 MG/0.8ML SOLN 80mg sq q 12 hrs ENOXAPARIN SODIUM 39001199838 No Longer Active Hyacinth Thuy Arias ASPIRIN 325 MG TAB 1 PO QD OTC ASPIRIN 11154404560 No Longer Active Hyacinth Thuy Arias IRON (FERROUS GLUCONATE) 325 MG TAB 1 PO daily IRON (FERROUS GLUCONATE) 325 MG TAB No Longer Active Hyacinth Thuy Arias PROAIR HFA 108 (90 BASE) MCG/ACT AERS 2 puff Q4 hrs prn wheezing ALBUTEROL SULFATE 48648375426 No Longer Active Hyacinth Thuy Arias ADVAIR DISKUS 250-50 MCG/DOSE MISC 1 Puff BID FLUTICASONE-SALMETEROL 84292507158 No Longer Active Hyacinth Thuy Arias LORTAB 5 5-500 MG TABS 1 to 2 PO Q6hrs prn ACETAMINOPHEN-HYDROCODONE 71283808033 No Longer Active Hyacinth Thuy Arias HYDROCODONE-HOMATROPINE 5-1.5 MG/5ML SYRP 1 tsp PO Q4hrs prn 2009 HYDROCODONE-HOMATROPINE 14457633544 No Longer Active Hyacinth Thuy Arias TESSALON 200 MG CAPS 1 PO TID prn cough BENZONATATE 24142143876 No Longer Active Hyacinth Thuy Arias PREDNISONE 20 MG TAB 3 pills daily at once for 2 days, 2 pills daily at once for 2 days, 1 once daily for 2 days PREDNISONE 12335146044 No Longer Active Hyacinth Thuy Arias BIAXIN XL PAC 500 MG TB24 2 pills at same time daily for 7 days CLARITHROMYCIN 82282020842 No Longer Active Hyacinthlinda Arias FERROUS SULFATE CR 325 MG TBCR 1 po BID with meals FERROUS SULFATE 18507946227 No Longer Active Hyacinth Thuy Arias FISH OIL 500 MG CAPS 1 PO daily OMEGA-3 FATTY ACIDS 79310934822 Active Hyacinth Thuy Arias AMOXICILLIN 500 MG CAPS 1 po TID x 14 days AMOXICILLIN 15379418134 No Longer Active Hyacinth Thuy Arias LOVENOX 40 MG/0.4ML SOLN 1 injection daily x 10 days ENOXAPARIN SODIUM 41971389475 No Longer Active Hyacinthlinda Arias CLOBETASOL PROPIONATE 0.05 % OINT Apply to affected areas on fingers twice daily prn CLOBETASOL PROPIONATE 07151633894 No Longer Active Hyacinth Thuy Arias B COMPLEX-B12 TABS 1 PO daily B COMPLEX VITAMINS 81377022244 Active Hyacinthlinda Arias ATENOLOL 50 MG TABS 1 po daily ATENOLOL 22796891042 Active Rocio Faulkner NEXIUM 40 MG CPDR 1 PO daily ESOMEPRAZOLE MAGNESIUM 94717076668 No Longer Active Hyacinthlinda Arias PEPCID AC 10 MG CHEW as directed FAMOTIDINE 96491093082 No Longer Active Hyacinthlinda Arias LIPITOR 20 MG TABS 1 PO daily ATORVASTATIN CALCIUM 22187276319 No Longer Active Hyacinth Thuy Arias CLINDAMYCIN HCL 150 MG CAPS 1 PO QID for tooth abcess CLINDAMYCIN HCL 16798549529 No Longer Active Hyacinth Thuy Arias DICLOFENAC SODIUM 50 MG TBEC 1 po TID for 3 weeks DICLOFENAC SODIUM 17193500216 No Longer Active Hyacinth Thuy Arias CALTRATE 600 1500 MG TABS 1 po BID CALCIUM CARBONATE 80044393782 Active Hyacinth Thuy Arias INDERAL LA 80 MG CPCR 1 po daily PROPRANOLOL HCL 60549679271 No Longer Active Rocio Kaushik Immunizations Vaccine [...] 2.8 Encounters Code Encounter Date Provider Facility CPT-14960 Ofc Vst, Est Level III 15:01:23 POWDER LINE REPAIRER Hyacinth Arias [place] [facility] CPT-50418 Ofc Vst, Est Level IV 19:17:51 POWDER LINE REPAIRER Hyacinth Arias DO, PARKER CPT-40434 Ofc Vst, Est Level III 16:13:43 CDT [facility] CPT-62773 Ofc Vst, Est Level III 15:37:41 CDT [facility]PT[facility]13686 Ofc Vst, Est Level IV 14:47:33 CDT [facility] CPT-46529 Ofc Vst, Est Level IV 14:33:32 POWDER LINE REPAIRER Hyacinth [facility] CPT-99994 Ofc Vst, Est Level IV 14:27:50 CDT Hyacinth Thuy Arias [place] [facility] CPT-26085 Ofc Vst, Est Level IV 15:03:28 CDT Hyacinth Thuy [facility] CPT-67859 Ofc Vst, Est Level IV 15:57:36 CDT Hyacinth Thuy Castanon Juana DO, FACP CPT-29630 Ofc Vst, Est Level V 15:19:54 CDT Hyacinth Thuy Arias [place] [facility] CPT-94830 Ofc Vst, Est Level IV 10:58:46 CDT Hyacinth Thuy Arias [place] [facility] CPT-57541 Ofc Vst, Est Level IV 14:50:36 POWDER LINE REPAIRER Hyacinth Arias [place] [facility] CPT-41178 Ofc Vst, Est Level IV 14:30:17 POWDER LINE REPAIRER Hyacinth Thuy Castanon Juana DO, FACP CPT-62086 Ofc Vst, Est Level IV 14:02:40 CDT Hyacinth Thuy Arias [place] [facility] CPT-60127 Ofc Vst, Est Level IV 13:56:31 CDT Hyacinth Thuy Castanon Juana DO, FACP CPT-80865 Ofc Vst, Est Level IV 10:37:02 CDT Hyacinth Tuhy Castanon Juana DO, FACP CPT-68987 Ofc Vst, Est Level IV 14:05:52 POWDER LINE REPAIRER Hyacinth Thuy Arias [place] [facility] CPT-89945 Ofc Vst, Est Level IV 16:33:25 CDT Hyacinth Thuy Arias [place] [facility] CPT-51388 Ofc Vst, Est Level V 21:04:23 CDT Hyacinth Thuy Arias [place] [facility] CPT-24235 Ofc Vst, Est Level IV 16:16:21 CDT Hyacinth Thuy Castanon Juana DO, FACP CPT-22876 Ofc Vst, Est Level IV 15:51:25 CDT Hyacinth Valener Hyacinth Kina Juana, DO, FACP CPT-06238 Ofc Vst, Est Level IV 14:48:14 POWDER LINE REPAIRER Hyacinth Valener Hyacinth Kina Juana, DO, FACP CPT-05906 Ofc Vst, Est Level IV 16:27:03 CDT Hyacinth Thuy Juana Arias, DO, FACP CPT-11425 Ofc Vst, Est Level IV 15:52:01 CDT Hyacinth Parryanne Juana [facility] [place] CPT-29379 Ofc Vst, Est Level IV 16:35:52 POWDER LINE REPAIRER Hyacinth Arias [facility] [place] CPT-09918 Ofc Vst, Est Level IV 16:35:15 CDT Hyacinth Arias [facility] [place] CPT-74340 Ofc Vst, Est Level IV 16:09:46 POWDER LINE REPAIRER Hyacinth Thuycandi Arias [facility] [place] CPT-88692 Ofc Vst, Est Level IV 09:38:44 POWDER LINE REPAIRER Hyacinthlinda Arias [facility] [place] CPT-28736 Ofc Vst, Est Level IV 16:28:20 POWDER LINE REPAIRER Hyacinth Arias [facility] [place] CPT-58259 Ofc Vst, Est Level III 18:01:30 POWDER LINE REPAIRER Hyacinth Thuycandi Arias [facility] [place] CPT-17190 Ofc Vst, New Level III 17:57:02 CDT Hyacinth Thuycandi Arias [facility] [place] Procedures Code Procedure Name Date Entry Date Standard Description CPT-04774 Preventive, Est, (65+) 17:03:59 CDT CPT-G8445 E-Prescribing Not sent due to no medication given 16:13: 43 CDT CPT-G8445 E-Prescribing Not sent due to no medication given 15:37: 41 CDT CPT-G8445 E-Prescribing Not sent due to no medication given 16:05: 00 POWDER LINE REPAIRER CPT-G0438 Medicare Annual Wellness Visit Initial 16:05:00 POWDER LINE REPAIRER CPT-39619 Injection 10:37:02 CDT
--- OUTSIDE RECORDS SUMMARY | 2018-08-20 08:44 | XMS REPORT | Clinical Summary ---
Author Author User, DIAMOND Organization [facility] [place] Address Unknown Phone Unavailable Allergies, Adverse Reactions, [...] Active Hyacinth Arias Atrial fibrillation CORONARY ATHEROSCLEROSIS, [place] VESSEL 414.01 Active Hyacinth Arias Coronary atherosclerosis of [place] coronary artery CHF 428.0 Active Hyacinth Arias [...] Instructions Start Date Stop Date Generic Name [facility] Status Provider Patient Instruction COUMADIN [address] Zamarripa WARFARIN SODIUM 05663858429 Active Hyacinthlinda Arias MULTIVITAMINS TABS 1 po daily MULTIPLE VITAMIN 50559068378 No Longer Active Hyacinthlinda Arias OMEPRAZOLE 40 MG CPDR 1 PO Daily OMEPRAZOLE 21811744801 Active Hyacinth Thuy Arias HYDROCODONE-ACETAMINOPHEN 5-325 MG TABS 1-2 PO Q4-6 hrs prn pain HYDROCODONE-ACETAMINOPHEN 35025603392 Active Hyacinth Thuy Arias FLOVENT HFA 220 MCG/ACT AERO 2 puff BID prn FLUTICASONE PROPIONATE HFA 65816676805 No Longer Active Hyacinthlinda Arias TUSSINEX PENNKINETIC ER 4-10 (CHLORPHENIRAMINE/HYDROCODONE) 1 tsp Q12hrs 2009 TUSSINEX PENNKINETIC ER 4-10 (CHLORPHENIRAMINE/HYDROCODONE) No Longer Active Hyacinthlinda Arias FLONASE 50 MCG/DOSE INHALANT 1 puff each nostril BID FLONASE 50 MCG/DOSE INHALANT 25945855402 No Longer Active Hyacinthlinda Arias PROTONIX 40 MG TBEC 1 po qd PANTOPRAZOLE SODIUM 27300990874 No Longer Active Hyacinthlinda Arias OMEPRAZOLE 20 MG TBEC 1 PO daily OMEPRAZOLE 70313459524 No Longer Active Hyacinthlinda Arias PROAIR HFA 108 (90 BASE) MCG/ACT AERS 2 puff Q4 hrs prn wheezing ALBUTEROL SULFATE 00333715069 No Longer Active Hyacinthlinda Arisa PRADAXA 150 MG CAPS 1 PO BID DABIGATRAN ETEXILATE MESYLATE 61808348670 No Longer Active Rocio Faulkner ZOCOR 40 MG TABS 1 PO daily SIMVASTATIN 56390462869 Active Hyacinthlinda Arias NORVASC 2.5 MG TAB 1 PO daily AMLODIPINE BESYLATE 68823027160 Active Rocio Faulkner PRADAXA 150MG 1 PO BID PRADAXA 150MG No Longer Active Hyacinth Thuy Arias COUMADIN 5 MG TABS 1 po daily at 6 pm WARFARIN SODIUM 62552858635 No Longer Active Hyacinth Thuy Arias LOVENOX 80 MG/0.8ML SOLN 80mg sq q 12 hrs ENOXAPARIN SODIUM 96767978110 No Longer Active Hyacinth Thuy Arias ASPIRIN 325 MG TAB 1 PO QD OTC ASPIRIN 08281810844 No Longer Active Hyacinth Thuy Arias IRON (FERROUS GLUCONATE) 325 MG TAB 1 PO daily IRON (FERROUS GLUCONATE) 325 MG TAB No Longer Active Hyacinth Thuy Arias PROAIR HFA 108 (90 BASE) MCG/ACT AERS 2 puff Q4 hrs prn wheezing ALBUTEROL SULFATE 21694039126 No Longer Active Hyacinth Thuy Arias ADVAIR DISKUS 250-50 MCG/DOSE MISC 1 Puff BID FLUTICASONE-SALMETEROL 75975784291 No Longer Active Hyacinth Thuy Arias LORTAB 5 5-500 MG TABS 1 to 2 PO Q6hrs prn ACETAMINOPHEN-HYDROCODONE 00440783972 No Longer Active Hyacinth Thuy Arias HYDROCODONE-HOMATROPINE 5-1.5 MG/5ML SYRP 1 tsp PO Q4hrs prn 2009 HYDROCODONE-HOMATROPINE 29314616926 No Longer Active Hyacinth Thuy Arias TESSALON 200 MG CAPS 1 PO TID prn cough BENZONATATE 39457259278 No Longer Active Hyacinth Thuy Arias PREDNISONE 20 MG TAB 3 pills daily at once for 2 days, 2 pills daily at once for 2 days, 1 once daily for 2 days PREDNISONE 05302962010 No Longer Active Hyacinth Thuy Arias BIAXIN XL PAC 500 MG TB24 2 pills at same time daily for 7 days CLARITHROMYCIN 62427944258 No Longer Active Hyacinth Thuy Arias FERROUS SULFATE CR 325 MG TBCR 1 po BID with meals FERROUS SULFATE 45892767240 No Longer Active Hyacinth Thuy Arias FISH OIL 500 MG CAPS 1 PO daily OMEGA-3 FATTY ACIDS 20780889865 Active Hyacinth Thuy Arias AMOXICILLIN 500 MG CAPS 1 po TID x 14 days AMOXICILLIN 41834540971 No Longer Active Hyacinth Thuy Arias LOVENOX 40 MG/0.4ML SOLN 1 injection daily x 10 days ENOXAPARIN SODIUM 04757609557 No Longer Active Hyacinth Thuy Arias CLOBETASOL PROPIONATE 0.05 % OINT Apply to affected areas on fingers twice daily prn CLOBETASOL PROPIONATE 99546565128 No Longer Active Hyacinth Thuy Arias B COMPLEX-B12 TABS 1 PO daily B COMPLEX VITAMINS 14940495502 Active Hyacinth Thuy Arias ATENOLOL 50 MG TABS 1 po daily ATENOLOL 37006890557 Active Rocio Faulkner NEXIUM 40 MG CPDR 1 PO daily ESOMEPRAZOLE MAGNESIUM 51224960207 No Longer Active Hyacinthlinda Arias PEPCID AC 10 MG CHEW as directed FAMOTIDINE 59896105527 No Longer Active Hyacinth Thuy Arias LIPITOR 20 MG TABS 1 PO daily ATORVASTATIN CALCIUM 21252979367 No Longer Active Hyacinth Thuy Arias CLINDAMYCIN HCL 150 MG CAPS 1 PO QID for tooth abcess CLINDAMYCIN HCL 75829982912 No Longer Active Hyacinth Thuy Arias DICLOFENAC SODIUM 50 MG TBEC 1 po TID for 3 weeks DICLOFENAC SODIUM 43858392716 No Longer Active Hyacinth Thuy Arias CALTRATE 600 1500 MG TABS 1 po BID CALCIUM CARBONATE 10206729403 Active Hyacinth Thuy Arias INDERAL LA 80 MG CPCR 1 po daily PROPRANOLOL HCL 97996433368 No Longer Active Rocio Kaushik Immunizations Vaccine [...] 2.8 Encounters Code Encounter Date Provider Facility CPT-26392 Ofc Vst, Est Level III 15:01:23 CHECKING CLERK [facility] CPT-42128 Ofc Vst, Est Level IV 19:17:51 CHECKING CLERK Hyacinth Arias DO, PARKER CPT-90479 Ofc Vst, Est Level III 16:13:43 CDT [facility] OFFICE CPT-87827 Ofc Vst, Est Level III 15:37:41 CDT [facility] Ofc Vst, Est Level IV 14:47:33 CDT [facility] CPT-45222 Ofc Vst, Est Level IV 14:33:32 CHECKING CLERK [facility]PT-70750 Ofc Vst, Est Level IV 14:27:50 CDT [facility] Thuy Arias [place] [facility] CPT-71790 Ofc Vst, Est Level IV 15:03:28 CDT Hyacinth Thuy Arias [place] [facility] CPT-76524 Ofc Vst, Est Level IV 15:57:36 CDT Hyacinth Thuy Castanon Juana DO, FACP CPT-57303 Ofc Vst, Est Level V 15:19:54 CDT Hyacinth Thuy Arias [place] [facility] CPT-05648 Ofc Vst, Est Level IV 10:58:46 CDT Hyacinth Thuy Arias [place] [facility] CPT-34503 Ofc Vst, Est Level IV 14:50:36 CHECKING CLERK Hyacinth Arias [place] [facility] CPT-40687 Ofc Vst, Est Level IV 14:30:17 CHECKING CLERK Hyacinth Thuy Castanon Juana DO, FACP CPT-52584 Ofc Vst, Est Level IV 14:02:40 CDT Hyacinth Thuy Arias [place] [facility] CPT-46890 Ofc Vst, Est Level IV 13:56:31 CDT Hyacinth Thuy Castanon Juana DO, FACP CPT-63634 Ofc Vst, Est Level IV 10:37:02 CDT Hyacinth Thuy Castanon Juana DO, FACP CPT-75582 Ofc Vst, Est Level IV 14:05:52 CHECKING CLERK Hyacinth Thuy Arias [place] [facility] CPT-95181 Ofc Vst, Est Level IV 16:33:25 CDT Hyacinth Thuy Arias [place] [facility] CPT-96440 Ofc Vst, Est Level V 21:04:23 CDT Hyacinth Thuy Arias [place] [facility] CPT-58102 Ofc Vst, Est Level IV 16:16:21 CDT Hyacinth Thuy Castanon Juana DO, FACP CPT-45801 Ofc Vst, Est Level IV 15:51:25 CDT Hyacinth Daley Juana Claros Kina Juana, DO, FACP CPT-33849 Ofc Vst, Est Level IV 14:48:14 CHECKING CLERK Hyacinth Thuy Valener Hyacinth Kina Juana, DO, FACP CPT-77827 Ofc Vst, Est Level IV 16:27:03 CDT Hyacinth Thuy Juana Arias, DO, FACP CPT-07124 Ofc Vst, Est Level IV 15:52:01 CDT Hyacinth Parryanne Juana [facility] [place] CPT-13893 Ofc Vst, Est Level IV 16:35:52 CHECKING CLERK Hyacinth Arias [facility] [place] CPT-11993 Ofc Vst, Est Level IV 16:35:15 CDT Hyacinth Arias [facility] [place] CPT-33418 Ofc Vst, Est Level IV 16:09:46 CHECK[address] CL[address]inth Arias [facility] [place] CPT-25913 Ofc Vst, Est Level IV 09:38:44 CHECKING CLERK Hyacinthlinda Arias [facility] [place] CPT-96560 Ofc Vst, Est Level IV 16:28:20 CHECKING CLERK Hyacinth Arias [facility] [place] CPT-67585 Ofc Vst, Est Level III 18:01:30 CHECKING CLERK Hyacinthlinda Arias [facility] [place] CPT-41075 Ofc Vst, New Level III 17:57:[address] [facility] [place] Procedures Code Procedure Name Date Entry Date Standard Description CPT-46771 Preventive, Est, (65+) 17:03:59 CDT CPT-G8445 E-Prescribing Not sent due to no medication given 16:13: 43 CDT CPT-G8445 E-Prescribing Not sent due to no medication given 15:37: 41 CDT CPT-G8445 E-Prescribing Not sent due to no medication given 16:05: 00 CHECKING CLERK CPT-G0438 Medicare Annual Wellness Visit Initial 16:05:00 CHECKING CLERK CPT-47914 Injection 10:37:02 CDT
--- OUTSIDE RECORDS SUMMARY | 2018-08-20 08:45 | XMS REPORT | Clinical Summary ---
Author Author User, DIAMOND Organization [facility] Physician [place] Address Unknown Phone Unavailable Allergies, Adverse Reactions, [...] Active Hyacinth Arias Atrial fibrillation CORONARY ATHEROSCLEROSIS, [place] VESSEL 414.01 Active Hyacinth Arias Coronary atherosclerosis of [place] coronary artery CHF 428.0 Active Hyacinth Arias [...] Instructions Start Date Stop Date Generic Name [facility] Status Provider Patient Instruction LISINOPRIL 5 MG TABS 1 po daily to protect Kidneys LISINOPRIL 70440857769 Active Hyacinthlinda Arias CLARITIN 10 MG TAB 1 PO daily LORATADINE 40073364906 Active Hyacinth Arias COUMADIN [address] Zamarripa WARFARIN SODIUM 52697987624 Active Hyacinthlinda Arias MULTIVITAMINS TABS 1 po daily MULTIPLE VITAMIN 30803270750 No Longer Active Hyacinthlinda Arias OMEPRAZOLE 40 MG CPDR 1 PO Daily OMEPRAZOLE 05477700941 Active Rocio Faulkner HYDROCODONE-ACETAMINOPHEN 5-325 MG TABS 1-2 PO Q4-6 hrs prn pain HYDROCODONE-ACETAMINOPHEN 52084363044 Active Hyacinthlinda Arias FLOVENT HFA 220 MCG/ACT AERO 2 puff BID prn FLUTICASONE PROPIONATE HFA 86502740787 No Longer Active Hyacinth Arias TUSSINEX PENNKINETIC ER 4-10 (CHLORPHENIRAMINE/HYDROCODONE) 1 tsp Q12hrs 2009 TUSSINEX PENNKINETIC ER 4-10 (CHLORPHENIRAMINE/HYDROCODONE) No Longer Active Hyacinthlinda Arias FLONASE 50 MCG/DOSE INHALANT 1 puff each nostril BID FLONASE 50 MCG/DOSE INHALANT 53279931798 No Longer Active Hyacinthlinda Arias PROTONIX 40 MG TBEC 1 po qd PANTOPRAZOLE SODIUM 86389893610 No Longer Active Hyacinthlinda Arias OMEPRAZOLE 20 MG TBEC 1 PO daily OMEPRAZOLE 03739637085 No Longer Active Hyacinthlinda Arias PROAIR HFA 108 (90 BASE) MCG/ACT AERS 2 puff Q4 hrs prn wheezing ALBUTEROL SULFATE 22503691985 No Longer Active Hyacinth Arias PRADAXA 150 MG CAPS 1 PO BID DABIGATRAN ETEXILATE MESYLATE 70500418199 No Longer Active Rocio Faulkner ZOCOR 40 MG TABS 1 PO daily SIMVASTATIN 12652986067 Active Hyacinth Thuy Arias NORVASC 2.5 MG TAB 1 PO daily AMLODIPINE BESYLATE 16188708616 Active Rocio Faulkner PRADAXA 150MG 1 PO BID PRADAXA 150MG No Longer Active Hyacinth Thuy Arias COUMADIN 5 MG TABS 1 po daily at 6 pm WARFARIN SODIUM 60834431911 No Longer Active Hyacinth Thuy Arias LOVENOX 80 MG/0.8ML SOLN 80mg sq q 12 hrs ENOXAPARIN SODIUM 69836307882 No Longer Active Hyacinth Thuy Arias ASPIRIN 325 MG TAB 1 PO QD OTC ASPIRIN 25037004185 No Longer Active Hyacinth Thuy Arias IRON (FERROUS GLUCONATE) 325 MG TAB 1 PO daily IRON (FERROUS GLUCONATE) 325 MG TAB No Longer Active Hyacinth Thuy Arias PROAIR HFA 108 (90 BASE) MCG/ACT AERS 2 puff Q4 hrs prn wheezing ALBUTEROL SULFATE 97333540272 No Longer Active Hyacinth Thuy Arias ADVAIR DISKUS 250-50 MCG/DOSE MISC 1 Puff BID FLUTICASONE-SALMETEROL 61659299491 No Longer Active Hyacinth Thuy Arias LORTAB 5 5-500 MG TABS 1 to 2 PO Q6hrs prn ACETAMINOPHEN-HYDROCODONE 05743634659 No Longer Active Hyacinth Thuy Arias HYDROCODONE-HOMATROPINE 5-1.5 MG/5ML SYRP 1 tsp PO Q4hrs prn 2009 HYDROCODONE-HOMATROPINE 66419108217 No Longer Active Hyacinth Thuy Arias TESSALON 200 MG CAPS 1 PO TID prn cough BENZONATATE 91302354334 No Longer Active Hyacinth Thuy Arias PREDNISONE 20 MG TAB 3 pills daily at once for 2 days, 2 pills daily at once for 2 days, 1 once daily for 2 days PREDNISONE 07859915753 No Longer Active Hyacinthlinda Arias BIAXIN XL PAC 500 MG TB24 2 pills at same time daily for 7 days CLARITHROMYCIN 56550864766 No Longer Active Hyacinthlinda Arias FERROUS SULFATE CR 325 MG TBCR 1 po BID with meals FERROUS SULFATE 92601573407 No Longer Active Hyacinth Thuy Arias FISH OIL 500 MG CAPS 1 PO daily OMEGA-3 FATTY ACIDS 44567123530 Active Hyacinthlinda Arias AMOXICILLIN 500 MG CAPS 1 po TID x 14 days AMOXICILLIN 62985335774 No Longer Active Hyacinthlinda Arias LOVENOX 40 MG/0.4ML SOLN 1 injection daily x 10 days ENOXAPARIN SODIUM 05979529183 No Longer Active Hyacinthlinda Arias CLOBETASOL PROPIONATE 0.05 % OINT Apply to affected areas on fingers twice daily prn CLOBETASOL PROPIONATE 95393208579 No Longer Active Hyacinth Arias B COMPLEX-B12 TABS 1 PO daily B COMPLEX VITAMINS 00583984015 Active Hyacinthlinda Arias ATENOLOL 50 MG TABS 1 po daily ATENOLOL 33325385403 Active Rocio Faulkner NEXIUM 40 MG CPDR 1 PO daily ESOMEPRAZOLE MAGNESIUM 32294583865 No Longer Active Hyacinthlinda Arias PEPCID AC 10 MG CHEW as directed FAMOTIDINE 08986544824 No Longer Active Hyacinthlinda Arias LIPITOR 20 MG TABS 1 PO daily ATORVASTATIN CALCIUM 14563346134 No Longer Active Hyacinthlinda Arias CLINDAMYCIN HCL 150 MG CAPS 1 PO QID for tooth abcess CLINDAMYCIN HCL 56192423106 No Longer Active Hyacinthlinda Arias DICLOFENAC SODIUM 50 MG TBEC 1 po TID for 3 weeks DICLOFENAC SODIUM 86557235373 No Longer Active Hyacinth Arias CALTRATE 600 1500 MG TABS 1 po BID CALCIUM CARBONATE 92543502691 Active Hyacinth Arias INDERAL LA 80 MG CPCR 1 po daily PROPRANOLOL HCL 88959615447 No Longer Active Rocio Faulkner Immunizations Vaccine [...] 2.8 Encounters Code Encounter Date Provider Facility CPT-60878 Ofc Vst, Est Level III 15:01:23 POLITICAL SCIENCE CHAIR [facility] CPT-93077 Ofc Vst, Est Level IV 19:17:51 POLITICAL SCIENCE CHAIR Hyacinth Thuy Stormi Kina DO [place], FACP CPT-71534 Ofc Vst, Est Level III 16:13:43 CDT Hyac[facility] CPT-55594 Ofc Vst, Est Level III 15:37:[address] [facility] OFFICE CPT-93823 Ofc Vst, Est Level IV 14:47:[address] [facility] OFFICE CPT-70003 Ofc Vst, Est Level IV 14:33:32 POLITICAL SCIENCE CHAIR Hyacinth [facility] CPT-44693 Ofc Vst, Est Level IV 14:27:50 CDT Hyac[facility] CPT-32512 Ofc Vst, Est Level IV 15:03:[address] [facility] OFFICE CPT-70152 Ofc Vst, Est Level IV 15:57:36 CDT [facility]ac[facility] [place] [facility] [place], FACP CPT-27785 Ofc Vst, Est Level V 15:19:54 CDT [facility] CPT-09153 Ofc Vst, Est Level IV 10:58:46 CDT Hyacinth [facility] CPT-00600 Ofc Vst, Est Level IV 14:50:36 POLITICAL SCIENCE CHAIR Hyacinth [facility] CPT-18735 Ofc Vst, Est Level IV 14:30:17 POLITICAL SCIENCE CHAIR Hyacinth Thuy Stormi S [place] DO, FACP CPT-54908 Ofc Vst, Est Level IV 14:02:40 [facility] Ofc Vst, Est Level IV 13:56:31 CDT Hyacinth Thuy Valener Hyacinth S Arias, DO, FACP CPT-62614 Ofc Vst, Est Level IV 10:37:02 CDT Hyacinth Daley [place] Arias, DO, FACP CPT-31629 Ofc Vst, Est Level IV 14:05:52 POLITICAL SCIENCE CHAIR Hyacinth Valener [facility] CPT-13978 Ofc Vst, Est Level IV 16:33:25 CDT Hyacinthlinda Daley Arias [facility] CPT-36572 Ofc Vst, Est Level V 21:04:23 CDT Hyacinthlinda Valener [facility] CPT-42552 Ofc Vst, Est Level IV 16:16:21 CDT Hyacinth Thuy [place] Arias, DO, FACP CPT-83178 Ofc Vst, Est Level IV 15:51:25 CDT Hyacinthlinda Daley [place] Arias, DO, FACP CPT-09655 Ofc Vst, Est Level IV 14:48:14 POLITICAL SCIENCE CHAIR Hyacinth Daley [place] Arias, DO, FACP CPT-69959 Ofc Vst, Est Level IV 16:27:03 CDT Hyacinth Thuy [place] Arias, DO, FACP CPT-79078 Ofc Vst, Est Level IV 15:52:01 CDT Hyacinth Arias [facility] CPT-93667 Ofc Vst, Est Level IV 16:35:52 POLITICAL SCIENCE CHAIR Hyacinth Arias [facility] CPT-64887 Ofc Vst, Est Level IV 16:35:15 CDT Hyacinth Arias [facility] CPT-56870 Ofc Vst, Est Level IV 16:09:46 POLITICAL SCIENCE CHAIR Hyacinth Arias [facility] CPT-69671 Ofc Vst, Est Level IV 09:38:44 POLITICAL SCIENCE CHAIR Hyacinth Arias [facility] CPT-44104 Ofc Vst, Est Level IV 16:28:20 POLITICAL SCIENCE CHAIR Hyacinth Arias [facility] CPT-91055 Ofc Vst, Est Level III 18:01:30 POLITICAL SCIENCE CHAIR Hyacinth Arias [facility] CPT-95306 Ofc Vst, New Level III 17:57:02 CDT Hyacinth Arias [facility] Procedures Code Procedure Name Date Entry Date Standard Description CPT-G0439 Medicare Annual Wellness Visit 16:42:25 CDT CPT-49369 Preventive, Est, (65+) 17:03:59 CDT CPT-G8445 E-Prescribing Not sent due to no medication given 16:13: 43 CDT CPT-G8445 E-Prescribing Not sent due to no medication given 15:37: 41 CDT CPT-G8445 E-Prescribing Not sent due to no medication given 16:05: 00 POLITICAL SCIENCE CHAIR CPT-G0438 Medicare Annual Wellness Visit Initial 16:05:00 POLITICAL SCIENCE CHAIR CPT-27468 Injection 10:37:02 CDT
--- OUTSIDE RECORDS SUMMARY | 2018-08-20 08:46 | XMS REPORT | Clinical Summary ---
Author Author User, [id number] Organization [facility] Physician [place] Address Unknown Phone Unavailable Allergies, Adverse Reactions, [...] Active Hyacinth Arias Atrial fibrillation CORONARY ATHEROSCLEROSIS, [place] VESSEL 414.01 Active Hyacinth Arias Coronary atherosclerosis of [place] coronary artery CHF 428.0 Active Hyacinth Arias [...] Instructions Start Date Stop Date Generic Name [facility] Status Provider Patient Instruction COUMADIN [address] Zamarripa WARFARIN SODIUM 55973404498 Active Hyacinthlinda Arias MULTIVITAMINS TABS 1 po daily MULTIPLE VITAMIN 62898781468 No Longer Active Hyacinthlinda Arias OMEPRAZOLE 40 MG CPDR 1 PO Daily OMEPRAZOLE 18837178198 Active Rocio Faulkner HYDROCODONE-ACETAMINOPHEN 5-325 MG TABS 1-2 PO Q4-6 hrs prn pain HYDROCODONE-ACETAMINOPHEN 26539046622 Active Hyacinth Thuy Arias FLOVENT HFA 220 MCG/ACT AERO 2 puff BID prn FLUTICASONE PROPIONATE HFA 02879659020 No Longer Active Hyacinthlinda Arias TUSSINEX PENNKINETIC ER 4-10 (CHLORPHENIRAMINE/HYDROCODONE) 1 tsp Q12hrs 2009 TUSSINEX PENNKINETIC ER 4-10 (CHLORPHENIRAMINE/HYDROCODONE) No Longer Active Hyacinthlinda Arias FLONASE 50 MCG/DOSE INHALANT 1 puff each nostril BID FLONASE 50 MCG/DOSE INHALANT 74891966314 No Longer Active Hyacinthlinda Arias PROTONIX 40 MG TBEC 1 po qd PANTOPRAZOLE SODIUM 41086931535 No Longer Active Hyacinthlinda Arias OMEPRAZOLE 20 MG TBEC 1 PO daily OMEPRAZOLE 60277602100 No Longer Active Hyacinthlinda Arias PROAIR HFA 108 (90 BASE) MCG/ACT AERS 2 puff Q4 hrs prn wheezing ALBUTEROL SULFATE 17298130538 No Longer Active Hyacinthlinda Arias PRADAXA 150 MG CAPS 1 PO BID DABIGATRAN ETEXILATE MESYLATE 73820869997 No Longer Active Rocio Faulkner ZOCOR 40 MG TABS 1 PO daily SIMVASTATIN 08221075791 Active Hyacinthlinda Arias NORVASC 2.5 MG TAB 1 PO daily AMLODIPINE BESYLATE 17793311259 Active Rocio Faulkner PRADAXA 150MG 1 PO BID PRADAXA 150MG No Longer Active Hyacinth Thuy Arias COUMADIN 5 MG TABS 1 po daily at 6 pm WARFARIN SODIUM 40667239816 No Longer Active Hyacinth Thuy Arias LOVENOX 80 MG/0.8ML SOLN 80mg sq q 12 hrs ENOXAPARIN SODIUM 50860160805 No Longer Active Hyacinth Thuy Arias ASPIRIN 325 MG TAB 1 PO QD OTC ASPIRIN 40921806841 No Longer Active Hyacinth Thuy Arias IRON (FERROUS GLUCONATE) 325 MG TAB 1 PO daily IRON (FERROUS GLUCONATE) 325 MG TAB No Longer Active Hyacinth Thuy Arias PROAIR HFA 108 (90 BASE) MCG/ACT AERS 2 puff Q4 hrs prn wheezing ALBUTEROL SULFATE 86906628415 No Longer Active Hyacinth Thuy Arias ADVAIR DISKUS 250-50 MCG/DOSE MISC 1 Puff BID FLUTICASONE-SALMETEROL 48594934986 No Longer Active Hyacinth Thuy Arias LORTAB 5 5-500 MG TABS 1 to 2 PO Q6hrs prn ACETAMINOPHEN-HYDROCODONE 01810251410 No Longer Active Hyacinth Thuy Arias HYDROCODONE-HOMATROPINE 5-1.5 MG/5ML SYRP 1 tsp PO Q4hrs prn 2009 HYDROCODONE-HOMATROPINE 21250667848 No Longer Active Hyacinth Thuy Arias TESSALON 200 MG CAPS 1 PO TID prn cough BENZONATATE 42295795986 No Longer Active Hyacinth Thuy Arias PREDNISONE 20 MG TAB 3 pills daily at once for 2 days, 2 pills daily at once for 2 days, 1 once daily for 2 days PREDNISONE 34290128189 No Longer Active Hyacinth Thuy Arias BIAXIN XL PAC 500 MG TB24 2 pills at same time daily for 7 days CLARITHROMYCIN 28654174912 No Longer Active Hyacinthlinda Arias FERROUS SULFATE CR 325 MG TBCR 1 po BID with meals FERROUS SULFATE 81614596968 No Longer Active Hyacinthlinda Arias FISH OIL 500 MG CAPS 1 PO daily OMEGA-3 FATTY ACIDS 99729996863 Active Hyacinth Thuy Arias AMOXICILLIN 500 MG CAPS 1 po TID x 14 days AMOXICILLIN 38404939404 No Longer Active Hyacinth Thuy Arias LOVENOX 40 MG/0.4ML SOLN 1 injection daily x 10 days ENOXAPARIN SODIUM 96010838614 No Longer Active Hyacinthlinda Arias CLOBETASOL PROPIONATE 0.05 % OINT Apply to affected areas on fingers twice daily prn CLOBETASOL PROPIONATE 51843699001 No Longer Active Hyacinth Thuy Arias B COMPLEX-B12 TABS 1 PO daily B COMPLEX VITAMINS 63384761539 Active Hyacinth Thuy Arias ATENOLOL 50 MG TABS 1 po daily ATENOLOL 79967749268 Active Rocio Faulkner NEXIUM 40 MG CPDR 1 PO daily ESOMEPRAZOLE MAGNESIUM 74544106824 No Longer Active Hyacinthlinda Arias PEPCID AC 10 MG CHEW as directed FAMOTIDINE 22874803637 No Longer Active Hyacinthlinda Arias LIPITOR 20 MG TABS 1 PO daily ATORVASTATIN CALCIUM 28461569575 No Longer Active Hyacinthlinda Arias CLINDAMYCIN HCL 150 MG CAPS 1 PO QID for tooth abcess CLINDAMYCIN HCL 07640969782 No Longer Active Hyacinthlinda Arias DICLOFENAC SODIUM 50 MG TBEC 1 po TID for 3 weeks DICLOFENAC SODIUM 93873098159 No Longer Active Hyacinth Thuy Arias CALTRATE 600 1500 MG TABS 1 po BID CALCIUM CARBONATE 22937770471 Active Hyacinth Thuy Arias INDERAL LA 80 MG CPCR 1 po daily PROPRANOLOL HCL 28620010295 No Longer Active Rocio Kaushik Immunizations Vaccine [...] 2.8 Encounters Code Encounter Date Provider Facility CPT-34385 Ofc Vst, Est Level III 15:01:23 DENTAL PRACTITIONER [facility] CPT-82969 Ofc Vst, Est Level IV 19:17:51 DENTAL PRACTITIONER Hyacinth Arias DO, FACP CPT-90594 Ofc Vst, Est Level III 16:13:43 CDT Hyacinth [facility] CPT-18370 Ofc Vst, Est Level III 15:37:[address] [facility] Thuy [facility] CPT-37565 Ofc Vst, Est Level IV 14:47:33 CDT Hyacinth [facility] CPT-73777 Ofc Vst, Est Level IV 14:33:[address] [facility] Thuy [facility] CPT-28941 Ofc Vst, Est Level IV 14:27:50 CDT Hyacinth Thuy [facility] CPT-60878 Ofc Vst, Est Level IV 15:03:28 CDT Hyacinth Thuy [facility] OFFICE CPT-28866 Ofc Vst, Est Level IV 15:57:36 CDT Hyacinth Thuy Castanon Juana DO, FACP CPT-61494 Ofc Vst, Est Level V 15:19:[address] [facility]09 Ofc Vst, Est Level IV 10:58:[address] [facility] CPT-32966 Ofc Vst, Est Level IV 14:50:[address] [facility] CPT-65507 Ofc Vst, Est Level IV 14:30:[address] [facility] Thuy Arias Hyacinth Kina Juana, DO, FACP CPT-42430 Ofc Vst, Est Level IV 14:02:[address] [facility] Thuy [facility] CPT-02601 Ofc Vst, Est Level IV 13:56:[address] [facility] Thuy Castanon Juana, DO, FACP CPT-31199 Ofc Vst, Est Level IV 10:37:02 CDT Hyacinth Thuy Castanon Juana, DO, FACP CPT-46155 Ofc Vst, Est Level IV 14:05:[address] [facility] CPT-67667 Ofc Vst, Est Level IV 16:33:[address] [facility] CPT-51502 Ofc Vst, Est Level V 21:04:23 [facility]00443 Ofc Vst, Est Level IV 16:16:21 CDT Hyacinth Thuycandi Arias, DO, FACP CPT-29483 Ofc Vst, Est Level IV 15:51:25 CDT Hyacinth Thuy [place] Arias, DO, FACP CPT-08872 Ofc Vst, Est Level IV 14:48:14 DENTAL PRACTITIONER Hyacinth Thuy [place] Arias, DO, FACP CPT-96923 Ofc Vst, Est Level IV 16:27:03 CDT Hyacinth Thuy [place] Arias, DO, FACP CPT-24035 Ofc Vst, Est Level IV 15:52:01 CDT Hyacinth Arias [facility] CPT-05293 Ofc Vst, Est Level IV 16:35:52 DENTAL PRACTITIONER Hyacinth Arias [facility] CPT-40532 Ofc Vst, Est Level IV 16:35:15 CDT Hyacinth Thuy Arias [facility] CPT-01718 Ofc Vst, Est Level IV 16:09:46 DENTAL PRACTITIONER Hyacinth Arias [facility] CPT-94003 Ofc Vst, Est Level IV 09:38:44 DENTAL PRACTITIONER Hyacinth Arias [facility] CPT-69577 Ofc Vst, Est Level IV 16:28:20 DENTAL PRACTITIONER Hyacinth Arias [facility] CPT-52126 Ofc Vst, Est Level III 18:01:30 DENTAL PRACTITIONER Hyacinth Arias [facility] CPT-99660 Ofc Vst, New Level III 17:57:02 CDT Hyacinth Thuy Arias [facility] Procedures Code Procedure Name Date Entry Date Standard Description CPT-34926 Preventive, Est, (65+) 17:03:59 CDT CPT-G8445 E-Prescribing Not sent due to no medication given 16:13: 43 CDT CPT-G8445 E-Prescribing Not sent due to no medication given 15:37: 41 CDT CPT-G8445 E-Prescribing Not sent due to no medication given 16:05: 00 DENTAL PRACTITIONER CPT-G0438 Medicare Annual Wellness Visit Initial 16:05:00 DENTAL PRACTITIONER CPT-79122 Injection 10:37:02 CDT
--- OUTSIDE RECORDS SUMMARY | 2018-08-20 08:47 | XMS REPORT | Clinical Summary ---
Author Author User, [facility] [place] Address Unknown Phone Unavailable Allergies, Adverse Reactions, [...] Active Hyacinth Arias Atrial fibrillation CORONARY ATHEROSCLEROSIS, [place] VESSEL 414.01 Active Hyacinth Arias Coronary atherosclerosis of [place] coronary artery CHF 428.0 Active Hyacinth Arias [...] Start Date Stop Date Generic Name [facility] Status Provider Patient Instruction COUMADIN [address] Zamarripa WARFARIN SODIUM 28124133429 Active Hyacinth Thuy Arias MULTIVITAMINS TABS 1 po daily MULTIPLE VITAMIN 72310114562 No Longer Active Hyacinthlinda Arias OMEPRAZOLE 40 MG CPDR 1 PO Daily OMEPRAZOLE 95084654682 Active Hyacinth Thuy Arias HYDROCODONE-ACETAMINOPHEN 5-325 MG TABS 1-2 PO Q4-6 hrs prn pain HYDROCODONE-ACETAMINOPHEN 48500405062 Active Hyacinth Thuy Arias FLOVENT HFA 220 MCG/ACT AERO 2 puff BID prn FLUTICASONE PROPIONATE HFA 34401817842 No Longer Active Hyacinthlinda Arias TUSSINEX PENNKINETIC ER 4-10 (CHLORPHENIRAMINE/HYDROCODONE) 1 tsp Q12hrs 2009 TUSSINEX PENNKINETIC ER 4-10 (CHLORPHENIRAMINE/HYDROCODONE) No Longer Active Hyacinthlinda Arias FLONASE 50 MCG/DOSE INHALANT 1 puff each nostril BID FLONASE 50 MCG/DOSE INHALANT 73664998243 No Longer Active Hyacinthlinda Arias PROTONIX 40 MG TBEC 1 po qd PANTOPRAZOLE SODIUM 09576140277 No Longer Active Hyacinthlinda Arias OMEPRAZOLE 20 MG TBEC 1 PO daily OMEPRAZOLE 05928288964 No Longer Active Hyacinthlinda Arias PROAIR HFA 108 (90 BASE) MCG/ACT AERS 2 puff Q4 hrs prn wheezing ALBUTEROL SULFATE 64025983434 No Longer Active Hyacinthlinda Arias PRADAXA 150 MG CAPS 1 PO BID DABIGATRAN ETEXILATE MESYLATE 34477940184 No Longer Active Rocio Faulkner ZOCOR 40 MG TABS 1 PO daily SIMVASTATIN 87312454119 Active Hyacinthlinda Arias NORVASC 2.5 MG TAB 1 PO daily AMLODIPINE BESYLATE 77777125912 Active Rocio Faulkner PRADAXA 150MG 1 PO BID PRADAXA 150MG No Longer Active Hyacinth Thuy Arias COUMADIN 5 MG TABS 1 po daily at 6 pm WARFARIN SODIUM 97967152584 No Longer Active Hyacinth Thuy Arias LOVENOX 80 MG/0.8ML SOLN 80mg sq q 12 hrs ENOXAPARIN SODIUM 98109386132 No Longer Active Hyacinth Thuy Arias ASPIRIN 325 MG TAB 1 PO QD OTC ASPIRIN 22335305583 No Longer Active Hyacinth Thuy Arias IRON (FERROUS GLUCONATE) 325 MG TAB 1 PO daily IRON (FERROUS GLUCONATE) 325 MG TAB No Longer Active Hyacinth Thuy Arias PROAIR HFA 108 (90 BASE) MCG/ACT AERS 2 puff Q4 hrs prn wheezing ALBUTEROL SULFATE 42141798180 No Longer Active Hyacinth Thuy Arias ADVAIR DISKUS 250-50 MCG/DOSE MISC 1 Puff BID FLUTICASONE-SALMETEROL 30368025388 No Longer Active Hyacinth Thuy Arias LORTAB 5 5-500 MG TABS 1 to 2 PO Q6hrs prn ACETAMINOPHEN-HYDROCODONE 37519088324 No Longer Active Hyacinth Thuy Arias HYDROCODONE-HOMATROPINE 5-1.5 MG/5ML SYRP 1 tsp PO Q4hrs prn 2009 HYDROCODONE-HOMATROPINE 91638136514 No Longer Active Hyacinth Thuy Arias TESSALON 200 MG CAPS 1 PO TID prn cough BENZONATATE 32012468018 No Longer Active Hyacinth Thuy Arias PREDNISONE 20 MG TAB 3 pills daily at once for 2 days, 2 pills daily at once for 2 days, 1 once daily for 2 days PREDNISONE 63640663232 No Longer Active Hyacinth Thuy Arias BIAXIN XL PAC 500 MG TB24 2 pills at same time daily for 7 days CLARITHROMYCIN 93369253983 No Longer Active Hyacinthlinda Arias FERROUS SULFATE CR 325 MG TBCR 1 po BID with meals FERROUS SULFATE 57678387144 No Longer Active Hyacinth Thuy Arias FISH OIL 500 MG CAPS 1 PO daily OMEGA-3 FATTY ACIDS 19218281677 Active Hyacinth Thuy Arias AMOXICILLIN 500 MG CAPS 1 po TID x 14 days AMOXICILLIN 84973967616 No Longer Active Hyacinth Thuy Arias LOVENOX 40 MG/0.4ML SOLN 1 injection daily x 10 days ENOXAPARIN SODIUM 04718926838 No Longer Active Hyacinthlinda Arias CLOBETASOL PROPIONATE 0.05 % OINT Apply to affected areas on fingers twice daily prn CLOBETASOL PROPIONATE 11575464501 No Longer Active Hyacinth Thuy Arias B COMPLEX-B12 TABS 1 PO daily B COMPLEX VITAMINS 91581717692 Active Hyacinthlinda Arias ATENOLOL 50 MG TABS 1 po daily ATENOLOL 60745251575 Active Rocio Faulkner NEXIUM 40 MG CPDR 1 PO daily ESOMEPRAZOLE MAGNESIUM 18157608601 No Longer Active Hyacinthlinda Arias PEPCID AC 10 MG CHEW as directed FAMOTIDINE 31452643336 No Longer Active Hyacinthlinda Arias LIPITOR 20 MG TABS 1 PO daily ATORVASTATIN CALCIUM 25589103077 No Longer Active Hyacinth Thuy Arias CLINDAMYCIN HCL 150 MG CAPS 1 PO QID for tooth abcess CLINDAMYCIN HCL 47319944387 No Longer Active Hyacinth Thuy Arias DICLOFENAC SODIUM 50 MG TBEC 1 po TID for 3 weeks DICLOFENAC SODIUM 69660763843 No Longer Active Hyacinth Thuy Arias CALTRATE 600 1500 MG TABS 1 po BID CALCIUM CARBONATE 48868444142 Active Hyacinth Thuy Arias INDERAL LA 80 MG CPCR 1 po daily PROPRANOLOL HCL 49820629750 No Longer Active Rocio Kaushik Immunizations Vaccine [...] 2.8 Encounters Code Encounter Date Provider Facility CPT-31094 Ofc Vst, Est Level III 15:01:23 DIRECTOR OF OPERATIONS HOME HEALTH Hyacinth Arias [facility] CPT-51426 Ofc Vst, Est Level IV 19:17:51 DIRECTOR OF OPERATIONS HOME HEALTH Hyacinth Arias DO, [facility] CPT-27598 Ofc Vst, Est Level III 16:13:43 CDT [facility] Ofc Vst, Est Level III 15:37:41 CDT [facility] Ofc Vst, Est Level IV 14:47:33 CDT [facility] CPT-79047 Ofc Vst, Est Level IV 14:33:32 DIRECT[facility] OF OPERATIONS [facility] CPT-46156 Ofc Vst, Est Level IV 14:27:50 CDT Hyacinth Thuy Arias [facility] CPT-64921 Ofc Vst, Est Level IV 15:03:28 CDT Hyacinth Thuy [facility] CPT-79013 Ofc Vst, Est Level IV 15:57:36 CDT Hyacinth Thuy Castanon Ju[place] DO, FACP CPT-85495 Ofc Vst, Est Level V 15:19:54 CDT Hyacinth Thuy Arias [facility] CPT-95864 Ofc Vst, Est Level IV 10:58:46 CDT Hyacinth Thuy Arias [facility] CPT-48775 Ofc Vst, Est Level IV 14:50:36 DIRECTOR OF OPERATIONS [facility] HE[facility] Hyacinth Arias [facility] CPT-96763 Ofc Vst, Est Level IV 14:30:17 DIRECTOR OF OPERATIONS HOME HEALTH Hyacinth Thuy Castanon [place] DO, FACP CPT-47047 Ofc Vst, Est Level IV 14:02:40 CDT Hyacinth Thuy Arias [facility] CPT-54898 Ofc Vst, Est Level IV 13:56:31 CDT Hyacinth Thuy Castanon [place] DO, FACP CPT-83993 Ofc Vst, Est Level IV 10:37:02 CDT Hyacinth Thuy Castanon [place] DO, FACP CPT-54397 Ofc Vst, Est Level IV 14:05:52 DIRECTOR OF OPERATIONS HOME HEALTH Hyacinth Thuy Arias [facility] CPT-62649 Ofc Vst, Est Level IV 16:33:25 CDT Hyacinth Thuy Arias [facility] CPT-78964 Ofc Vst, Est Level V 21:04:23 CDT Hyacinth Thuy Ari[facility] CPT-22393 Ofc Vst, Est Level IV 16:16:21 CDT Hyacinth Thuy Castanon [place] DO, FACP CPT-56695 Ofc Vst, Est Level IV 15:51:25 CDT Hyacinth Valener Hyacinth Kina [place], DO, FACP CPT-75552 Ofc Vst, Est Level IV 14:48:14 DIRECTOR OF OPERATIONS HOME HEALTH Hyacinth Valener Hyacinth Kina [place], DO, FACP CPT-42936 Ofc Vst, Est Level IV 16:27:03 CDT Hyacinth Thuy [place] Arias, DO, FACP CPT-97105 Ofc Vst, Est Level IV 15:52:01 CDT Hyacinth Parryanne [place]ana [facility] [place] CPT-21452 Ofc Vst, Est Level IV 16:35:52 DIRECTOR OF OPERATIONS HOME HEALTH Hyacinth Arias [facility] [place] CPT-31322 Ofc Vst, Est Level IV 16:35:15 CDT Hyacinth Arias [facility] [place] CPT-68982 Ofc Vst, Est Level IV 16:09:46 DIRECTOR OF OPERATIONS HOME HEALTH Hyacinth Thuycandi Arias [facility] [place] CPT-13160 Ofc Vst, Est Level IV 09:38:44 DIRECTOR OF OPERATIONS HOME HEALTH Hyacinthlinda Arias [facility] [place] CPT-91797 Ofc Vst, Est Level IV 16:28:20 DIRECTOR OF OPERATIONS HOME HEALTH Hyacinth Arias [facility] [place] CPT-90589 Ofc Vst, Est Level III 18:01:30 DIRECTOR OF OPERATIONS HOME HEALTH Hyacinth Thuycandi Arias [facility] [place] CPT-84312 Ofc Vst, New Level III 17:57:02 CDT Hy[address]inth [address] Arias [facility] [place] Procedures Code Procedure Name Date Entry Date Standard Description CPT-89898 Preventive, Est, (65+) 17:03:59 CDT CPT-G8445 E-Prescribing Not sent due to no medication given 16:13: 43 CDT CPT-G8445 E-Prescribing Not sent due to no medication given 15:37: 41 CDT CPT-G8445 E-Prescribing Not sent due to no medication given 16:05: 00 DIRECTOR OF OPERATIONS HOME HEALTH CPT-G0438 Medicare Annual Wellness Visit Initial 16:05:00 DIRECTOR OF OPERATIONS HOME HEALTH CPT-83314 Injection 10:37:02 CDT
--- OUTSIDE RECORDS SUMMARY | 2018-08-20 08:47 | XMS REPORT | Clinical Summary ---
Author Author User, [employer] [facility] [place] Address Unknown Phone Unavailable Allergies, Adverse Reactions, [...] Active Hyacinth Arias Atrial fibrillation CORONARY ATHEROSCLEROSIS, [place] VESSEL 414.01 Active Hyacinth Arias Coronary atherosclerosis of [place] coronary artery CHF 428.0 Active Hyacinth Arias [...] MG TAB per Dr Zamarripa WARFARIN SODIUM 24507733223 Active Hyacinth Thuy Arias MULTIVITAMINS TABS 1 po daily MULTIPLE VITAMIN 79143473490 No Longer Active Hyacinthlinda Arias OMEPRAZOLE 40 MG CPDR 1 PO Daily OMEPRAZOLE 06437106640 Active Hyacinth Thuy Arias HYDROCODONE-ACETAMINOPHEN 5-325 MG TABS 1-2 PO Q4-6 hrs prn pain HYDROCODONE-ACETAMINOPHEN 37307329386 Active Hyacinth Thuy Arias FLOVENT HFA 220 MCG/ACT AERO 2 puff BID prn FLUTICASONE PROPIONATE HFA 06757091832 No Longer Active Hyacinthlinda Arias TUSSINEX PENNKINETIC ER 4-10 (CHLORPHENIRAMINE/HYDROCODONE) 1 tsp Q12hrs 2009 TUSSINEX PENNKINETIC ER 4-10 (CHLORPHENIRAMINE/HYDROCODONE) No Longer Active Hyacinthlnida Arias FLONASE 50 MCG/DOSE INHALANT 1 puff each nostril BID FLONASE 50 MCG/DOSE INHALANT 50756528594 No Longer Active Hyacinthlinda Arias PROTONIX 40 MG TBEC 1 po qd PANTOPRAZOLE SODIUM 87471827644 No Longer Active Hyacinthlinda Arias OMEPRAZOLE 20 MG TBEC 1 PO daily OMEPRAZOLE 76619489004 No Longer Active Hyacinthlinda Arias PROAIR HFA 108 (90 BASE) MCG/ACT AERS 2 puff Q4 hrs prn wheezing ALBUTEROL SULFATE 69428555535 No Longer Active Hyacinthlinda Arias PRADAXA 150 MG CAPS 1 PO BID DABIGATRAN ETEXILATE MESYLATE 00459727805 No Longer Active Rocio Faulkner ZOCOR 40 MG TABS 1 PO daily SIMVASTATIN 99290041163 Active Hyacinth Thuy Arias NORVASC 2.5 MG TAB 1 PO daily AMLODIPINE BESYLATE 42507406590 Active Rocio Faulkner PRADAXA 150MG 1 PO BID PRADAXA 150MG No Longer Active Hyacinth Thuy Arias COUMADIN 5 MG TABS 1 po daily at 6 pm WARFARIN SODIUM 41340792628 No Longer Active Hyacinth Thuy Arias LOVENOX 80 MG/0.8ML SOLN 80mg sq q 12 hrs ENOXAPARIN SODIUM 07023468212 No Longer Active Hyacinth Thuy Arias ASPIRIN 325 MG TAB 1 PO QD OTC ASPIRIN 25838324718 No Longer Active Hyacinth Thuy Arias IRON (FERROUS GLUCONATE) 325 MG TAB 1 PO daily IRON (FERROUS GLUCONATE) 325 MG TAB No Longer Active Hyacinth Thuy Arias PROAIR HFA 108 (90 BASE) MCG/ACT AERS 2 puff Q4 hrs prn wheezing ALBUTEROL SULFATE 18385477005 No Longer Active Hyacinth Thuy Arias ADVAIR DISKUS 250-50 MCG/DOSE MISC 1 Puff BID FLUTICASONE-SALMETEROL 49196914402 No Longer Active Hyacinth Thuy Arias LORTAB 5 5-500 MG TABS 1 to 2 PO Q6hrs prn ACETAMINOPHEN-HYDROCODONE 36956340081 No Longer Active Hyacinth Thuy Arias HYDROCODONE-HOMATROPINE 5-1.5 MG/5ML SYRP 1 tsp PO Q4hrs prn 2009 HYDROCODONE-HOMATROPINE 79223128794 No Longer Active Hyacinth Thuy Arias TESSALON 200 MG CAPS 1 PO TID prn cough BENZONATATE 35431237878 No Longer Active Hyacinth Thuy Arias PREDNISONE 20 MG TAB 3 pills daily at once for 2 days, 2 pills daily at once for 2 days, 1 once daily for 2 days PREDNISONE 52836860345 No Longer Active Hyacinth Thuy Arias BIAXIN XL PAC 500 MG TB24 2 pills at same time daily for 7 days CLARITHROMYCIN 04267847949 No Longer Active Hyacinth Thuy Arias FERROUS SULFATE CR 325 MG TBCR 1 po BID with meals FERROUS SULFATE 55656612074 No Longer Active Hyacinth Thuy Arias FISH OIL 500 MG CAPS 1 PO daily OMEGA-3 FATTY ACIDS 06771382780 Active Hyacinth Thuy Arias AMOXICILLIN 500 MG CAPS 1 po TID x 14 days AMOXICILLIN 59892502784 No Longer Active Hyacinth Thuy Arias LOVENOX 40 MG/0.4ML SOLN 1 injection daily x 10 days ENOXAPARIN SODIUM 29148361743 No Longer Active Hyacinth Thuy Arias CLOBETASOL PROPIONATE 0.05 % OINT Apply to affected areas on fingers twice daily prn CLOBETASOL PROPIONATE 17679592601 No Longer Active Hyacinth Thuy Arias B COMPLEX-B12 TABS 1 PO daily B COMPLEX VITAMINS 47845359145 Active Hyacinth Thuy Arias ATENOLOL 50 MG TABS 1 po daily ATENOLOL 23626890445 Active Rocio Faulkner NEXIUM 40 MG CPDR 1 PO daily ESOMEPRAZOLE MAGNESIUM 27976684729 No Longer Active Hyacinth Thuy Arias PEPCID AC 10 MG CHEW as directed FAMOTIDINE 27741132824 No Longer Active Hyacinth Thuy Arias LIPITOR 20 MG TABS 1 PO daily ATORVASTATIN CALCIUM 06299577662 No Longer Active Hyacinth Thuy Arias CLINDAMYCIN HCL 150 MG CAPS 1 PO QID for tooth abcess CLINDAMYCIN HCL 45035712091 No Longer Active Hyacinth Thuy Arias DICLOFENAC SODIUM 50 MG TBEC 1 po TID for 3 weeks DICLOFENAC SODIUM 22708324976 No Longer Active Hyacinth Thuy Arias CALTRATE 600 1500 MG TABS 1 po BID CALCIUM CARBONATE 74723353863 Active Hyacinth Thuy Arias INDERAL LA 80 MG CPCR 1 po daily PROPRANOLOL HCL 37624921513 No Longer Active Rocio Olveratis Immunizations Vaccine Administration Date Value Standard Description [...] urine, semiquantitative 58.7 mg/dL Clinical Lists Update: CBC,TSH - Chemistry thyroid stimulating hormone, serum 1.94 u[iU]/mL Clinical Lists Update: CBC,TSH - Hematology red blood cell distribution width 12.2 % mean corpuscular volume, RBC 97.8 fL leukocyte count, blood 4.30 10*3/mm3 erythrocyte (RBC) count 4.01 10*6/mm3 platelet count 179 10*3/mm3 hemoglobin, blood 12.8 g/dL hematocrit, blood 39.2 % Clinical Lists Update: CMP,FLP,HgA1c - Chemistry aspartate aminotransferase (SGOT), serum 33 U/L protein, [...] serum 69 U/L albumin, serum 4.4 g/dL alanine aminotransferase (SGPT), serum 30 U/L bilirubin, serum, total 1.0 mg/dL triglyceride, serum, fasting 61 mg/dL sodium, serum 137 mmol/L anion gap, serum 12 cholesterol/HDL ratio, serum, percent 2.3 very low density lipoproteins 12 mg/dL Estimated Glomerular Filtration Rate (calc) 63 mL/min/1.73m2 glucose, plasma fasting 113 mg/dL Clinical Lists Update: PT,INR - Coagulation international normalized ratio (INR) 1.8 prothrombin time (patient) 19.8 s Clinical Lists Update: PT,INR [facility] - Coagulation prothrombin time (patient) 25.9 s prothrombin time (patient) 20.3 s prothrombin time (patient) 21.6 s international normalized ratio (INR) 2.4 international normalized ratio (INR) 1.8 international normalized ratio (INR) 2.8 Encounters Code Encounter Date Provider Facility CPT-40519 Ofc Vst, Est Level III 15:01:23 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 Hyacinth Thuy Arias [facility] CPT-51391 Ofc Vst, Est Level IV 19:17:51 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 Hyacinth Thuy Stormi Kina DO [place], FACP CPT-46567 Ofc Vst, Est Level III 16:13:43 [facility] Ofc Vst, Est Level III 15:37:41 [facility] Ofc Vst, Est Level IV 14:47:33 CDT Hyacinth [facility] CPT-56893 Ofc Vst, Est Level IV 14:33:32 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 Hyacinth [facility] CPT-36649 Ofc Vst, Est Level IV 14:27:50 CDT Hyacinth [facility] CPT-17901 Ofc Vst, Est Level IV 15:03:28 CDT Hyacinth [facility] CPT-13041 Ofc Vst, Est Level IV 15:57:36 CDT Hyacinth Thuy Stormi Kina DO [place], FACP CPT-88219 Ofc Vst, Est Level V 15:19:54 CDT [facility] CPT-45987 Ofc Vst, Est Level IV 10:58:46 CDT [facility] CPT-71801 Ofc Vst, Est Level IV 14:50:36 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 [facility] CPT-73023 Ofc Vst, Est Level IV 14:30:17 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 Hyacinth Thuy Stormi Kina DO [place], FACP CPT-31894 Ofc Vst, Est Level IV 14:02:40 CDT Hyacinth Thuy [facility] OFFICE CPT-83026 Ofc Vst, Est Level IV 13:56:31 CDT Hyacinth Thuy Arias Hyacinth S DO [place], FACP CPT-29261 Ofc Vst, Est Level IV 10:37:02 CDT Hyacinth Thuy [place] Arias DO, FACP CPT-54260 Ofc Vst, Est Level IV 14:05:52 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 Hyacinth Valener [facility] CPT-54539 Ofc Vst, Est Level IV 16:33:25 CDT Hyacinth Thuy [facility] CPT-72436 Ofc Vst, Est Level V 21:04:23 CDT Hyacinth Thuy [facility] CPT-16229 Ofc Vst, Est Level IV 16:16:21 CDT Hyacinth Thuy [place] Arias DO, FACP CPT-25352 Ofc Vst, Est Level IV 15:51:25 CDT Hyacinth Thuy [place] Arias DO, FACP CPT-53367 Ofc Vst, Est Level IV 14:48:14 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 Hyacinth Daley [place] Arias DO, FACP CPT-18195 Ofc Vst, Est Level IV 16:27:03 CDT Hyacinth Thuy [place] Arias DO, FACP CPT-42633 Ofc Vst, Est Level IV 15:52:01 CDT Hyacinth Arias [facility] [place] CPT-14812 Ofc Vst, Est Level IV 16:35:52 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 Hyacinth Arias [facility] [place] CPT-52363 Ofc Vst, Est Level IV 16:35:15 CDT Hyacinth Thuy Arias [facility] [place] CPT-60148 Ofc Vst, Est Level IV 16:09:46 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 Hyacinth Arias [facility] [place] CPT-38179 Ofc Vst, Est Level IV 09:38:44 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 Hyacinth Arias [facility] [place] CPT-46049 Ofc Vst, Est Level IV 16:28:20 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 Hyacinth Arias [facility] [place] CPT-69846 Ofc Vst, Est Level III 18:01:30 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 Hyacinth Arias [facility] [place] CPT-64966 Ofc Vst, New Level III 17:57:02 CDT Hyacinth Arias [facility] [place] Procedures Code Procedure Name Date Entry Date Standard Description CPT-13229 Preventive, Est, (65+) 17:03:59 CDT CPT-G8445 E-Prescribing Not sent due to no medication given 16:13: 43 CDT CPT-G8445 E-Prescribing Not sent due to no medication given 15:37: 41 CDT CPT-G8445 E-Prescribing Not sent due to no medication given 16:05: 00 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 CPT-G0438 Medicare Annual Wellness Visit Initial 16:05:00 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 CPT-40739 Injection 10:37:02 CDT
--- OUTSIDE RECORDS SUMMARY | 2018-08-20 08:48 | XMS REPORT | Clinical Summary ---
Author Author User, DIAMOND Organization [facility] Address Unknown Phone Unavailable Allergies, Adverse Reactions, [...] Active Hyacinth Arias Atrial fibrillation CORONARY ATHEROSCLEROSIS, THLOPTHLOCCO [place] VESSEL 414.01 Active Hyacinth Arias Coronary atherosclerosis of [place] coronary artery CHF 428.0 Active Hyacinth Arias [...] Instructions Start Date Stop Date Generic Name [facility] Status Provider Patient Instruction LISINOPRIL 5 MG TABS 1 po daily to protect Kidneys LISINOPRIL 79540905721 Active Hyacinthlinda Arias CLARITIN 10 MG TAB 1 PO daily LORATADINE 57601040972 Active Hyacinth Arias COUMADIN [address] Zamarripa WARFARIN SODIUM 53432041340 Active Hyacinthlinda Arias MULTIVITAMINS TABS 1 po daily MULTIPLE VITAMIN 55817667154 No Longer Active Hyacinthlinda Arias OMEPRAZOLE 40 MG CPDR 1 PO Daily OMEPRAZOLE 09747765446 Active Rocio Faulkner HYDROCODONE-ACETAMINOPHEN 5-325 MG TABS 1-2 PO Q4-6 hrs prn pain HYDROCODONE-ACETAMINOPHEN 76762700283 Active Hyacinthlinda Arias FLOVENT HFA 220 MCG/ACT AERO 2 puff BID prn FLUTICASONE PROPIONATE HFA 87702321391 No Longer Active Hyacinth Arias TUSSINEX PENNKINETIC ER 4-10 (CHLORPHENIRAMINE/HYDROCODONE) 1 tsp Q12hrs 2009 TUSSINEX PENNKINETIC ER 4-10 (CHLORPHENIRAMINE/HYDROCODONE) No Longer Active Hyacinthlinda Arias FLONASE 50 MCG/DOSE INHALANT 1 puff each nostril BID FLONASE 50 MCG/DOSE INHALANT 89938724145 No Longer Active Hyacinthlinda Arias PROTONIX 40 MG TBEC 1 po qd PANTOPRAZOLE SODIUM 12749172579 No Longer Active Hyacinthlinda Arias OMEPRAZOLE 20 MG TBEC 1 PO daily OMEPRAZOLE 66142764008 No Longer Active Hyacinthlinda Arias PROAIR HFA 108 (90 BASE) MCG/ACT AERS 2 puff Q4 hrs prn wheezing ALBUTEROL SULFATE 16442876472 No Longer Active Hyacinth Arias PRADAXA 150 MG CAPS 1 PO BID DABIGATRAN ETEXILATE MESYLATE 72480070799 No Longer Active Rocio Faulkner ZOCOR 40 MG TABS 1 PO daily SIMVASTATIN 75013875431 Active Hyacinth Thuy Arias NORVASC 2.5 MG TAB 1 PO daily AMLODIPINE BESYLATE 37391356663 Active Rocio Faulkner PRADAXA 150MG 1 PO BID PRADAXA 150MG No Longer Active Hyacinth Thuy Arias COUMADIN 5 MG TABS 1 po daily at 6 pm WARFARIN SODIUM 11256287576 No Longer Active Hyacinth Thuy Arias LOVENOX 80 MG/0.8ML SOLN 80mg sq q 12 hrs ENOXAPARIN SODIUM 40730900257 No Longer Active Hyacinth Thuy Arias ASPIRIN 325 MG TAB 1 PO QD OTC ASPIRIN 05601457343 No Longer Active Hyacinth Thuy Arias IRON (FERROUS GLUCONATE) 325 MG TAB 1 PO daily IRON (FERROUS GLUCONATE) 325 MG TAB No Longer Active Hyacinth Thuy Arias PROAIR HFA 108 (90 BASE) MCG/ACT AERS 2 puff Q4 hrs prn wheezing ALBUTEROL SULFATE 94582658389 No Longer Active Hyacinth Thuy Arias ADVAIR DISKUS 250-50 MCG/DOSE MISC 1 Puff BID FLUTICASONE-SALMETEROL 80690181253 No Longer Active Hyacinth Thuy Arias LORTAB 5 5-500 MG TABS 1 to 2 PO Q6hrs prn ACETAMINOPHEN-HYDROCODONE 86447641503 No Longer Active Hyacinth Thuy Arias HYDROCODONE-HOMATROPINE 5-1.5 MG/5ML SYRP 1 tsp PO Q4hrs prn 2009 HYDROCODONE-HOMATROPINE 07122811801 No Longer Active Hyacinth Thuy Arias TESSALON 200 MG CAPS 1 PO TID prn cough BENZONATATE 69338229920 No Longer Active Hyacinth Thuy Arias PREDNISONE 20 MG TAB 3 pills daily at once for 2 days, 2 pills daily at once for 2 days, 1 once daily for 2 days PREDNISONE 75764750654 No Longer Active Hyacinthlinda Arias BIAXIN XL PAC 500 MG TB24 2 pills at same time daily for 7 days CLARITHROMYCIN 24154371253 No Longer Active Hyacinthlinda Arias FERROUS SULFATE CR 325 MG TBCR 1 po BID with meals FERROUS SULFATE 79533675277 No Longer Active Hyacinth Thuy Arias FISH OIL 500 MG CAPS 1 PO daily OMEGA-3 FATTY ACIDS 23688609887 Active Hyacinthlinda Arias AMOXICILLIN 500 MG CAPS 1 po TID x 14 days AMOXICILLIN 90919980023 No Longer Active Hyacinthlinda Arias LOVENOX 40 MG/0.4ML SOLN 1 injection daily x 10 days ENOXAPARIN SODIUM 45439331571 No Longer Active Hyacinthlinda Arias CLOBETASOL PROPIONATE 0.05 % OINT Apply to affected areas on fingers twice daily prn CLOBETASOL PROPIONATE 34372217005 No Longer Active Hyacinth Arias B COMPLEX-B12 TABS 1 PO daily B COMPLEX VITAMINS 66795561863 Active Hyacinthlinda Arias ATENOLOL 50 MG TABS 1 po daily ATENOLOL 67653250912 Active Rocio Faulkner NEXIUM 40 MG CPDR 1 PO daily ESOMEPRAZOLE MAGNESIUM 59346462428 No Longer Active Hyacinthlinda Arias PEPCID AC 10 MG CHEW as directed FAMOTIDINE 04780940764 No Longer Active Hyacinthlinda Arias LIPITOR 20 MG TABS 1 PO daily ATORVASTATIN CALCIUM 80566728162 No Longer Active Hyacinthlinda Arias CLINDAMYCIN HCL 150 MG CAPS 1 PO QID for tooth abcess CLINDAMYCIN HCL 82077974328 No Longer Active Hyacinthlinda Arias DICLOFENAC SODIUM 50 MG TBEC 1 po TID for 3 weeks DICLOFENAC SODIUM 17301968326 No Longer Active Hyacinth Arias CALTRATE 600 1500 MG TABS 1 po BID CALCIUM CARBONATE 42752945781 Active Hyacinth Arias INDERAL LA 80 MG CPCR 1 po daily PROPRANOLOL HCL 88283446014 No Longer Active Rocio Faulkner Immunizations Vaccine [...] 4.4 mmol/L protein, total, serum 7.4 g/dL aspartate aminotransferase (SGOT), serum 33 U/L alanine aminotransferase (SGPT), serum 30 U/L very low density lipoproteins 12 mg/dL cholesterol/HDL ratio, serum, percent 2.3 anion gap, serum 12 sodium, serum 137 mmol/L triglyceride, serum, fasting 61 mg/dL bilirubin, serum, total 1.0 mg/dL Clinical Lists Update: PT,INR - Coagulation international normalized ratio (INR) 1.8 prothrombin time (patient) 19.8 s international normalized ratio (INR) 3.0 prothrombin time (patient) 32.3 s Clinical Lists Update: PT,INR [facility] - Coagulation international normalized ratio (INR) 2.0 prothrombin time (patient) 22.3 s Clinical Lists Update: PT,INR [facility] - Coagulation prothrombin time (patient) 20.3 s international normalized ratio (INR) 1.8 prothrombin time (patient) 25.9 s international normalized ratio (INR) 2.8 international normalized ratio (INR) 1.8 prothrombin time (patient) 21.6 s international normalized ratio (INR) 2.2 prothrombin time (patient) 24.5 s international normalized ratio (INR) 2.4 prothrombin time (patient) 20.0 s Encounters Code Encounter Date Provider Facility CPT-86887 Ofc Vst, Est Level III 15:01:23 G[employer]INE [facility]PT-61972 Ofc Vst, Est Level IV 19:17:51 G[employer]OLINE [employer] INST[employer] [facility] Hyacinth S DO [place], FACP CPT-11025 Ofc Vst, Est Level III 16:13:43 CDT Hyacinth [facility] OFFICE CPT-21962 Ofc Vst, Est Level III 15:37:41 CDT Hyacinth [facility] OFFICE CPT-82202 Ofc Vst, Est Level IV 14:47:33 CDT Hyacinth [facility] OFFICE CPT-02751 Ofc Vst, Est Level IV 14:33:[address] OFFICE CPT-29999 Ofc Vst, Est Level IV 14:27:[address] [facility] OFFICE CPT-33390 Ofc Vst, Est Level IV 15:03:[facility] Ofc Vst, Est Level IV 15:57:36 [facility] Kina Ari[facility] DO, FACP CPT-88664 Ofc Vst, Est Level V 15:19:54 [facility] Ofc Vst, Est Level IV 10:58:[address] [facility] OFFICE CPT-47376 Ofc Vst, Est Level IV 14:50:[address] OFFICE CPT-33645 Ofc Vst, Est Level IV 14:30:17 [employer]OLINE [employer] INST[employer] [place], FACP CPT-09806 Ofc Vst, Est Level IV 14:02:40 CDT Hyacinthlinda Valener [facility] OFFICE CPT-57302 Ofc Vst, Est Level IV 13:56:31 CDT Hyacinth Thuy Valener Hyacinthlinda Arias, DO, FACP CPT-78501 Ofc Vst, Est Level IV 10:37:02 CDT Hyacinth Thuy Valener Hyacinthlinda Arias, DO, FACP CPT-30470 Ofc Vst, Est Level IV 14:05:52 [employer]INE [employer] INST[employer]ER Hyacinthlinda Arias [facility] OFFICE CPT-16256 Ofc Vst, Est Level IV 16:33:25 CDT Hyacinth Thuy Valener [facility] OFFICE CPT-10445 Ofc Vst, Est Level V 21:04:23 CDT Hyacinth Thuy Valener [facility] OFFICE CPT-62947 Ofc Vst, Est Level IV 16:16:21 CDT Hyacinth Thuy Valener Hyacinthlinda Arias, DO, FACP CPT-67535 Ofc Vst, Est Level IV 15:51:25 CDT Hyacinth Thuy [place] Arias, DO, FACP CPT-50767 Ofc Vst, Est Level IV 14:48:14 [employer] Hyacinth Daley [place] Arias, DO, FACP CPT-53214 Ofc Vst, Est Level IV 16:27:03 CDT Hyacinth Thuy [place] Arias, DO, FACP CPT-75800 Ofc Vst, Est Level IV 15:52:01 CDT Hyacinth Thuy Arias [facility] CPT-40930 Ofc Vst, Est Level IV 16:35:52 G[employer]OLINE [employer] INST[employer]ER Hyacinth Arias [facility] CPT-14554 Ofc Vst, Est Level IV 16:35:15 CDT Hyacinth Arias [facility] CPT-88954 Ofc Vst, Est Level IV 16:09:46 G[employer]OLINE [employer] INST[employer]ER Hyacinth Arias [facility] CPT-19063 Ofc Vst, Est Level IV 09:38:44 G[employer]OLINE [employer] INSTALLER Hyacinth Arias [facility] CPT-60996 Ofc Vst, Est Level IV 16:28:20 G[employer]OLINE [employer] INST[employer]ER Hyacinth Arias [facility] CPT-38059 Ofc Vst, Est Level III 18:01:30 G[employer]OLINE [employer] INST[employer]ER Hyacinth Arias [facility] CPT-16130 Ofc Vst, New Level III 17:57:02 CDT Hyacinth Arias [facility] Procedures Code Procedure Name Date Entry Date Standard Description CPT-G0439 Medicare Annual Wellness Visit 16:42:25 CDT CPT-76215 Preventive, Est, (65+) 17:03:59 CDT CPT-G8445 E-Prescribing Not sent due to no medication given 16:13: 43 CDT CPT-G8445 E-Prescribing Not sent due to no medication given 15:37: 41 CDT CPT-G8445 E-Prescribing Not sent due to no medication given 16:05: 00 [employer]INE [employer] CPT-G0438 Medicare Annual Wellness Visit Initial 16:05:00 G[employer]OLINE [employer] 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
--- OUTSIDE RECORDS SUMMARY | 2018-08-20 08:50 | XMS REPORT | Continuity of Care Document ---
Author Author [facility] Organization [facility] Address Unknown Phone Unavailable Allergies Active Description Code Type Severity Reaction Onset Reported/Identified Relationship to Patient Clinical Status Yes CODEINE SULFATE CODEINE SULFATE MILD Yes CODEINE SULFATE MILD OTHER Yes codeine [id number] Drug Allergy Unknown N/A 05/03/2016 Yes codeine [id number] Drug Allergy Unknown PATIENT HAS REC 05/27/2016 Medications Medication Packaging Start Date Stop Date Route Dosage Sig KETOROLAC VIAL INJ 30 MG/CC (TORADOL VIAL) MG 01/21/2018 01/21/2018 PRN ONCE PREDNISONE TAB 20 MG (DELTASONE) MG 01/21/2018 01/21/2018 ONCE&1451 COLCHICINE TAB 0.6 MG (COLCRYS) MG 01/21/2018 01/21/2018 ONCE&1537 Problems Date Dx Coded Attending Type Code Diagnosis Diagnosed By 03/17/2011 Ot 272.4 HYPERLIPIDEMIA NEC/NOS 03/17/2011 Ot 397.0 TRICUSPID VALVE DISEASE 03/17/2011 Ot 401.9 HYPERTENSION NOS 03/17/2011 Ot 414.01 CORONARY ATHEROSCLEROSIS OF [place] CORON 03/17/2011 Ot 424.0 MITRAL VALVE DISORDER 03/17/2011 Ot 427.31 ATRIAL FIBRILLATION 03/17/2011 Ot 428.0 CONGESTIVE HEART FAILURE NOS 03/17/2011 Ot 493.20 CHRONIC OBSTRUCTIVE ASTHMA, NOS 03/17/2011 Ot 786.59 CHEST PAIN NEC 03/17/2011 Ot V15.82 HISTORY OF TOBACCO USE 03/17/2011 Ot V17.49 FAMILY HISTORY OF OTHER CARDIOVASCULAR D 03/17/2011 Ot V58.69 OTH MED,LT, CURRENT USE 03/18/2011 Ot 998.11 05/02/2011 Ot 401.9 05/02/2011 Ot 427.31 05/02/2011 Ot 496 05/02/2011 Ot 843.9 05/02/2011 Ot 924.01 05/02/2011 Ot 959.6 05/02/2011 Ot E000.8 05/02/2011 Ot E001.0 05/02/2011 Ot E849.7 05/02/2011 Ot E885.9 05/02/2011 Ot 272.4 05/02/2011 Ot 397.0 05/02/2011 Ot 401.9 05/02/2011 Ot 414.01 05/02/2011 Ot 427.31 05/02/2011 Ot 794.8 05/02/2011 Ot V58.69 01/16/2012 Ot 272.4 01/16/2012 Ot 401.9 01/16/2012 Ot 414.01 01/16/2012 Ot 427.31 01/16/2012 Ot 496 01/16/2012 Ot 786.50 01/16/2012 Ot 794.30 01/16/2012 Ot V58.61 01/16/2012 Ot V58.69 09/04/2014 Ot 786.07 09/04/2014 Ot 427.31 09/04/2014 Ot V72.63 09/04/2014 Ot V72.81 09/04/2014 Ot 414.01 09/04/2014 Ot 786.50 09/04/2014 Ot 396.3 09/04/2014 Ot 397.0 09/04/2014 Ot 414.00 09/04/2014 Ot 416.8 09/04/2014 Ot 427.31 09/04/2014 Ot 429.3 09/11/2014 Ot 786.07 09/11/2014 Ot 427.31 09/11/2014 Ot V72.63 09/11/2014 Ot V72.81 09/11/2014 Ot 414.01 09/11/2014 Ot 786.50 09/11/2014 Ot 396.3 09/11/2014 Ot 397.0 09/11/2014 Ot 414.00 09/11/2014 Ot 416.8 09/11/2014 Ot 427.31 09/11/2014 Ot 429.3 10/09/2014 DALLIN WOODS FACC, ALI FACP CCDS Ot 401.9 10/09/2014 DALLIN WOODS FACC, ALI FACP CCDS Ot 414.00 10/09/2014 DALLIN WOODS FACC, ALI FACP CCDS Ot 427.31 10/09/2014 DALLIN WOODS FACC, ALI FACP CCDS Ot 496 10/13/2014 DALLIN WOODS FACC, ALI FACP CCDS Ot 401.9 10/13/2014 DALLIN WOODS [facility] CCDS Ot 414.00 10/13/2014 DALLIN WOODS [facility] CCDS Ot 427.31 10/13/2014 DALLIN WOODS [facility] CCDS Ot 496 04/27/2016 FERRARI MARY HENSLEY Ot Z01.818 ENCOUNTER FOR OTHER PREPROCEDURAL EXAMIN 04/27/2016 MARY FERRARI DO Ot Z12.11 ENCOUNTER FOR SCREENING FOR MALIGNANT NE 04/27/2016 FERRARI MARY HENSLEY Ot Z86.010 PERSONAL HISTORY OF COLONIC POLYPS 04/28/2016 FERRARI MARY HENSLEY Ot Z01.818 ENCOUNTER FOR OTHER PREPROCEDURAL EXAMIN 04/28/2016 MARY FERRARI DO Ot Z12.11 ENCOUNTER FOR SCREENING FOR MALIGNANT NE 04/28/2016 FERRARI MARY HENSLEY Ot Z86.010 PERSONAL HISTORY OF COLONIC POLYPS 05/03/2016 FERRARI MARY HENSLEY Ot K57.30 DVRTCLOS OF LG INT W/O PERFORATION OR AB 05/03/2016 FERRARI MARY HENSLEY Ot Z12.11 ENCOUNTER FOR SCREENING FOR MALIGNANT NE 05/03/2016 FERRARI MARY HENSLEY Ot Z80.0 FAMILY HISTORY OF MALIGNANT NEOPLASM OF 05/03/2016 MARY FERRARI DO Ot Z86.010 PERSONAL HISTORY OF COLONIC POLYPS 05/05/2016 MARY FERRARI DO Ot K57.30 DVRTCLOS OF LG INT W/O PERFORATION OR AB 05/05/2016 MARY FERRARI DO Ot Z12.11 ENCOUNTER FOR SCREENING FOR MALIGNANT NE 05/05/2016 MARY FERRARI DO Ot Z80.0 FAMILY HISTORY OF MALIGNANT NEOPLASM OF 05/05/2016 FERRARI MARY HENSLEY Ot Z86.010 PERSONAL HISTORY OF COLONIC POLYPS 05/12/2016 MARY FERRARI DO Ot K57.30 DVRTCLOS OF LG INT W/O PERFORATION OR AB 05/12/2016 FERRARI MARY HENSLEY Ot Z12.11 ENCOUNTER FOR SCREENING FOR MALIGNANT NE 05/12/2016 FERRARI MARY HENSLEY Ot Z80.0 FAMILY HISTORY OF MALIGNANT NEOPLASM OF 05/12/2016 FERRARI MARY HENSLEY Ot Z86.010 PERSONAL HISTORY OF COLONIC POLYPS 05/19/2016 BENITEZ TURNER MD Ot K14.9 DISEASE OF TONGUE, UNSPECIFIED 05/19/2016 BENITEZ TURNER MD Ot Z01.812 ENCOUNTER FOR PREPROCEDURAL LABORATORY E 05/19/2016 BENITEZ TURNER MD Ot Z11.2 ENCOUNTER FOR SCREENING FOR OTHER BACTER 05/20/2016 BENITEZ TURNER MD Ot K14.9 DISEASE OF TONGUE, UNSPECIFIED 05/20/2016 BNEITEZ TURNER MD Ot Z01.812 ENCOUNTER FOR PREPROCEDURAL LABORATORY E 05/20/2016 BENITEZ TURNER MD Ot Z11.2 ENCOUNTER FOR SCREENING FOR OTHER BACTER 05/27/2016 BENITEZ TURNER MD Ot K13.21 LEUKOPLAKIA OF [place], INCLUDING TO 05/27/2016 BENITEZ TURNER MD Ot K14.9 DISEASE OF TONGUE, UNSPECIFIED 05/27/2016 BENITEZ TURNER MD Ot Z79.01 ORE MIXER (CURRENT) USE OF ANTICOAGULANT 06/03/2016 BENITEZ TURNER MD Ot K13.21 LEUKOPLAKIA OF [place], INCLUDING TO 06/03/2016 BENITEZ TURNER MD Ot Z79.01 INTERMEDIATE (CURRENT) USE OF ANTICOAGULANT 02/28/2017 DALTON, MARITZA L TOOL AND DIE INSPECTOR Ot I25.10 ATHSCL HEART DISEASE OF [place] CORONARY 03/06/2017 CARMA MARITZA L TOOL AND DIE INSPECTOR Ot I25.10 ATHSCL HEART DISEASE OF [place] CORONARY 03/08/2017 BAIMA, MARITZA L TOOL AND DIE INSPECTOR Ot I10 ESSENTIAL (PRIMARY) HYPERTENSION 03/08/2017 BAIMA MARITZA L TOOL AND DIE INSPECTOR Ot I25.10 ATHSCL HEART DISEASE OF [place] CORONARY 03/08/2017 DALTON MARITZA L TOOL AND DIE INSPECTOR Ot I48.2 CHRONIC ATRIAL FIBRILLATION 03/08/2017 BAIMA, MARITZA L TOOL AND DIE INSPECTOR Ot I65.23 OCCLUSION AND STENOSIS OF [place]AL [place] 03/08/2017 BAIMA MARITZA L TOOL AND DIE INSPECTOR Ot Z79.01 INTERMEDIATE (CURRENT) USE OF ANTICOAGULANT 04/03/2017 BAIMA, MARITZA L TOOL AND DIE INSPECTOR Ot I10 ESSENTIAL (PRIMARY) HYPERTENSION 04/03/2017 BAIMA, MARITZA L TOOL AND DIE INSPECTOR Ot I25.10 ATHSCL HEART DISEASE OF [place] CORONARY 04/03/2017 BAIMA MARITZA L TOOL AND DIE INSPECTOR Ot I48.2 CHRONIC ATRIAL FIBRILLATION 04/03/2017 CARMA, MARITZA L TOOL AND DIE INSPECTOR Ot I65.23 OCCLUSION AND STENOSIS OF BILATERAL [place] 04/03/2017 CARMARITZA NICHOLE L TOOL AND DIE INSPECTOR Ot Z79.01 INTERMEDIATE (CURRENT) USE OF ANTICOAGULANT 04/05/2017 CARDIONISIO, MARITZA L TOOL AND DIE INSPECTOR Ot I10 ESSENTIAL (PRIMARY) HYPERTENSION 04/05/2017 CARMA, MARITZA L TOOL AND DIE INSPECTOR Ot I25.10 ATHSCL HEART DISEASE OF [place] CORONARY 04/05/2017 BAIMA, MARITZA L TOOL AND DIE INSPECTOR Ot I48.2 CHRONIC ATRIAL FIBRILLATION 04/05/2017 BAIMA, MARITZA L TOOL AND DIE INSPECTOR Ot I65.23 OCCLUSION AND STENOSIS OF [place] 04/05/2017 BAIMA, MARITZA L TOOL AND DIE INSPECTOR Ot Z79.01 ORE MIXER (CURRENT) USE OF ANTICOAGULANT 01/21/2018 Keith Rios 274.00 GOUTY ARTHROPATHY, UNSPECIFIED 01/21/2018 Keith Rios M10.022 IDIOPATHIC GOUT, LEFT ELBOW 01/22/2018 A 274.00 GOUTY ARTHROPATHY, UNSPECIFIED 01/22/2018 A M10.022 IDIOPATHIC GOUT, LEFT ELBOW 06/08/2018 Ot 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 06/08/2018 Ot 397.0 TRICUSPID VALVE DISEASE 06/08/2018 Ot 414.00 CORON ATHEROSCLER NOS TYPE VESSEL, NATIV 06/08/2018 Ot 416.8 CHR PULMON HEART DIS NEC 06/08/2018 Ot 427.31 ATRIAL FIBRILLATION 06/08/2018 Ot 429.3 CARDIOMEGALY 06/08/2018 DALLIN WOODS FACC, ALI FACP CCDS Ot 401.9 HYPERTENSION NOS 06/08/2018 DALLIN WOODS FACC, ALI FACP CCDS Ot 414.00 CORON ATHEROSCLER NOS TYPE VESSEL, NATIV 06/08/2018 DALLIN WOODS FACC, ALI FACP CCDS Ot 427.31 ATRIAL FIBRILLATION 06/08/2018 DALLIN WOODS FACC, ALI FACP CCDS Ot 496 CHR AIRWAY OBSTRUCT NEC 06/08/2018 CARDIONISIO, MARITZA L TOOL AND DIE INSPECTOR Ot I10 ESSENTIAL (PRIMARY) HYPERTENSION 06/08/2018 CARDIONISIO, MARITZA L TOOL AND DIE INSPECTOR Ot I25.10 ATHSCL HEART DISEASE OF [place] CORONARY 06/08/2018 CARJEVON NICHOLEHER L TOOL AND DIE INSPECTOR Ot I48.2 CHRONIC ATRIAL FIBRILLATION 06/08/2018 CARMA, MARITZA L TOOL AND DIE INSPECTOR Ot I65.23 OCCLUSION AND STENOSIS OF [place] 06/08/2018 CARMA, MARITZA L TOOL AND DIE INSPECTOR Ot Z79.01 INTERMEDIATE (CURRENT) USE OF ANTICOAGULANT 2018 Ot 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 2018 Ot 397.0 TRICUSPID VALVE DISEASE 2018 Ot 414.00 CORON ATHEROSCLER NOS TYPE VESSEL, NATIV 2018 Ot 416.8 CHR PULMON HEART DIS NEC 2018 Ot 427.31 ATRIAL FIBRILLATION 2018 Ot 429.3 CARDIOMEGALY 2018 DALLIN WOODS FACC, ALI FACP CCDS Ot 401.9 HYPERTENSION NOS 2018 DALLIN WOODS FACC, ALI FACP CCDS Ot 414.00 CORON ATHEROSCLER NOS TYPE VESSEL, NATIV 2018 DALLIN WOODS FACC, ALI FACP CCDS Ot 427.31 ATRIAL FIBRILLATION 2018 DALLIN WOODS FACC, ALI FACP CCDS Ot 496 CHR AIRWAY OBSTRUCT NEC 2018 MARITZA HOFFMAN TOOL AND DIE INSPECTOR Ot I10 ESSENTIAL (PRIMARY) HYPERTENSION 2018 MARITZA HOFFMAN TOOL AND DIE INSPECTOR Ot I25.10 ATHSCL HEART DISEASE OF [place] CORONARY 2018 MARITZA HOFFMAN TOOL AND DIE INSPECTOR Ot I48.2 CHRONIC ATRIAL FIBRILLATION 2018 MARITZA HOFFMAN TOOL AND DIE INSPECTOR Ot I65.23 OCCLUSION AND STENOSIS OF [place] 2018 MARITZA HOFFMAN TOOL AND DIE INSPECTOR Ot Z79.01 INTERMEDIATE (CURRENT) USE OF ANTICOAGULANT 06/13/2018 BENITEZ TURNER MD Ot C06.9 MALIGNANT NEOPLASM OF MOUTH, UNSPECIFIED 06/13/2018 BENITEZ TURNER MD Ot R94.8 ABNORMAL RESULTS OF FUNCTION STUDIES OF 07/11/2018 BENITEZ TURNER MD Ot C06.9 MALIGNANT NEOPLASM OF MOUTH, UNSPECIFIED 07/11/2018 BENITEZ TURNER MD Ot R94.8 ABNORMAL RESULTS OF FUNCTION STUDIES OF 07/18/2018 BENITEZ TURNER MD Ot C06.9 MALIGNANT NEOPLASM OF MOUTH, UNSPECIFIED 07/18/2018 BENITEZ TURNER MD Ot R94.8 ABNORMAL RESULTS OF FUNCTION STUDIES OF Procedures There is no data. Results Test Result Range Methicillin resistant Staphylococcus aureus (MRSA) screening culture - 09:00 Methicillin resistant Staphylococcus aureus (MRSA) screening culture NEG NRG PT panel in platelet poor plasma by coagulation assay - 05/27/16 07:47 Prothrombin time (PT) in platelet poor plasma by coagulation assay 14.3 s 12.2-14.7 INR in platelet poor plasma or blood by coagulation assay 1.1 0.8-1.4 Protime - 09/14/16 09:11 INR 2.1 1.0-4.0 Protime 25.4 Sec 9.9-12.8 Protime - 10/10/16 10:59 INR 2.2 1.0-4.0 Protime 26.6 Sec 9.9-12.8 Protime - 11/10/16 10:43 INR 3.0 1.0-4.0 Protime 37.4 Sec 9.9-12.8 Protime - 11/21/16 10:58 INR 1.9 1.0-4.0 Protime 23.0 Sec 9.9-12.8 Protime - 12/06/16 08:40 INR 2.3 1.0-4.0 Protime 28.1 Sec 9.9-12.8 Protime - 01/03/17 10:31 INR 1.9 1.0-4.0 Protime 23.1 Sec 9.9-12.8 Protime - 01/19/17 10:26 INR 2.3 1.0-4.0 Protime 28.2 Sec 9.9-12.8 Folate - 02/15/17 08:57 Folate >40.00 ng/mL 7.00-31.40 Protime - 02/21/17 12:36 INR 1.5 1.0-4.0 Protime 18.0 Sec 9.9-12.8 Protime - 03/02/17 16:28 INR 1.7 1.0-4.0 Protime 20.6 Sec 9.9-12.8 Protime - 03/14/17 11:06 INR 2.0 1.0-4.0 Protime 23.8 Sec 9.9-12.8 Protime - 03/28/17 08:08 INR 2.2 1.0-4.0 Protime 26.2 Sec 9.9-12.8 Protime - 04/25/17 10:32 INR 2.6 1.0-4.0 Protime 31.5 Sec 9.9-12.8 Protime - 05/25/17 11:47 INR 2.7 1.0-4.0 Protime 33.1 Sec 9.9-12.8 Protime - 06/20/17 08:48 INR 3.3 1.0-4.0 Protime 41.2 Sec 9.9-12.8 Protime - 07/04/17 09:24 INR 3.1 1.0-4.0 Protime 38.6 Sec 9.9-12.8 Protime - 07/18/17 10:44 INR 1.9 1.0-4.0 Protime 22.7 Sec 9.9-12.8 Protime - 08/02/17 09:07 INR 1.8 1.0-4.0 Protime 21.3 Sec 9.9-12.8 Protime - 08/15/17 08:53 INR 2.2 1.0-4.0 Protime 25.7 Sec 9.9-12.8 VIT B- - 08/29/17 08:47 Vitamin B12 1229.00 pg/mL 213.00-816.00 Folate - 08/29/17 08:47 Folate >20.00 ng/mL 7.00-31.40 Thyroid Stimulating Hormone - 08/29/17 08:47 TSH 1.41 mIU/mL 0.32-5.00 Protime - 09/26/17 12:02 INR 1.8 1.0-4.0 Protime 21.5 Sec 9.9-12.8 Protime - 10/11/17 08:28 INR 1.9 1.0-4.0 Protime 22.0 Sec 9.9-12.8 Protime - 11/07/17 08:50 INR 1.9 1.0-4.0 Protime 22.0 Sec 9.9-12.8 Protime - 11/09/17 08:39 INR 2.3 1.0-4.0 Protime 26.4 Sec 9.9-12.8 Protime - 12/05/17 08:53 INR 2.6 1.0-4.0 Protime 29.8 Sec 9.9-12.8 Protime - 12/14/17 10:37 INR 3.1 1.0-4.0 Protime 36.7 Sec 9.9-12.8 Protime - 12/18/17 08:07 INR 1.9 1.0-4.0 Protime 22.7 Sec 9.9-12.8 Protime - 01/02/18 11:00 INR 2.8 1.0-4.0 Protime 32.4 Sec 9.9-12.8 BMP - 01/21/18 15:01 Anion Gap 19 6-14 BUN 15 mg/dL 5-25 Calcium 9.4 mg/dL 8.3-10.4 Chloride 95 mmol/L 95-114 CO2 21 mEq/L 22-33 Creat 0.81 mg/dL 0.50-1.50 eGFR 69 mL/min/1.73m2 >59 Glucose 134 mg/dL 70-110 Osmo 272 280-295 Potassium 4.5 mmol/L 3.5-5.3 Sodium 130 mmol/L 134-148 Protime - 01/30/18 10:18 INR 3.1 1.0-4.0 Protime 38.7 Sec 9.9-12.8 Protime - 02/06/18 08:19 INR 2.2 1.0-4.0 Protime 27.1 Sec 9.9-12.8 Protime - 02/20/18 09:57 INR 2.9 1.0-4.0 Protime 33.8 Sec 9.9-12.8 Protime - 02/28/18 07:50 INR 2.1 1.0-4.0 Protime 24.9 Sec 9.9-12.8 Protime - 03/29/18 13:01 INR 2.8 1.0-4.0 Protime 32.3 Sec 9.9-12.8 Protime - 04/26/18 09:52 INR 3.0 1.0-4.0 Protime 35.5 Sec 9.9-12.8 Protime - 05/04/18 08:13 INR 2.0 1.0-4.0 Protime 23.8 Sec 9.9-12.8 Protime - 05/15/18 08:37 INR 1.6 1.0-4.0 Protime 18.7 Sec 9.9-12.8 Protime - 05/23/18 09:29 INR 2.4 1.0-4.0 Protime 27.4 Sec 9.9-12.8 Protime - 06/18/18 08:48 INR 1.8 1.0-4.0 Protime 21.2 Sec 9.9-12.8 Comprehensive Metabolic Panel - 06/29/18 13:04 Albumin 4.6 g/dL 3.6-5.1 ALP 62 U/L 35-130 ALT 14 U/L 6-45 Anion Gap 14 6-14 AST 25 U/L 2-40 BUN 17 mg/dL 5-25 Calcium 10.0 mg/dL 8.3-10.4 Chloride 94 mmol/L 95-114 CO2 27 mEq/L 22-33 Creat 1.01 mg/dL 0.50-1.50 eGFR 54 mL/min/1.73m2 >59 Globulin 3.1 g/dL 2.3-3.5 Glucose 103 mg/dL 70-110 Osmo 271 280-295 Potassium 4.7 mmol/L 3.5-5.3 Sodium 130 mmol/L 134-148 TBil 0.9 mg/dL 0.2-1.2 TP 7.7 g/dL 6.0-8.3 Protime - 07/04/18 09:59 INR 3.5 1.0-4.0 Protime 41.1 Sec 9.9-12.8 Protime - 07/26/18 11:05 INR 1.0 1.0-4.0 Protime 11.2 Sec 9.9-12.8 BNP - 08/01/18 10:30 BNP 313.70 pg/ml 0.00-100.00 CBC with Auto Diff - 08/01/18 11:51 Baso% 0.20 % 0.00-2.50 Eos 0.1 K/uL 0.0-0.7 Eos% 1.4 % 0.0-7.0 Hct 28.9 % 36.0-46.0 Hgb 9.2 g/dL 13.0-15.0 Lym 0.96 K/uL 0.60-3.40 Lym% 15.0 % 10.0-50.0 MCH 31.9 pg 27.0-31.0 MCHC 31.8 g/dL 32.0-36.0 MCV 100.3 fL 80.0-97.0 Stevens% 17.0 % 0.0-12.0 MPV 9.8 fL 7.4-10.0 Emerald% 66.4 % 37.0-80.0 Plt 499 K/uL 150-400 RBC 2.88 M/uL 3.60-5.00 RDW 15.8 % 11.6-14.8 WBC 6.40 K/uL 5.00-10.00 Emerald 4.25 K/uL 2.00-6.90 Stevens 1.1 K/uL 0.0-0.9 Baso 0.0 K/uL 0.0-0.2 Protime - 08/08/18 10:25 INR 2.2 1.0-4.0 Protime 26.0 Sec 9.9-12.8 Methicillin resistant Staphylococcus aureus (MRSA) screening culture - 14:49 Methicillin resistant Staphylococcus aureus (MRSA) screening culture NEG NRG Encounters ACCT No. Visit Date/Time Discharge Status Pt. Type Provider Facility Loc./Unit Complaint [id number] 08/07/2018 12:46:00 08/07/2018 23:59:59 CLS Outpatient JJ WOODS, JOHNNY Paige [facility] ONC [id number] 2018 07:35:00 2018 23:59:59 CLS Outpatient BENITEZ TURNER MD [facility] RAD FLOOR MOUTH MASS [id number] 03/05/2018 12:40:00 03/05/2018 23:59:59 CLS Preadmit DALLIN WOODS FACCSALVADOR FACP CCDS [facility] RAD LEG SWELLING [id number] 03/07/2017 09:37:00 03/07/2017 23:59:59 CLS Outpatient MARITZA HOFFMAN [facility] CARD I25.10,I48.2,I65.23, I10 [id number] 05/27/2016 07:26:00 05/27/2016 13:40:00 DIS Outpatient BENITEZ TURNER MD [facility] SDC LEFT TONGUE LESION [id number] 05/19/2016 08:18:00 05/19/2016 09:05:00 DIS Outpatient BENITEZ TURNER MD [facility] PREOP LEFT TONGUE LESION [id number] 05/03/2016 08:30:00 05/03/2016 11:06:00 DIS Outpatient MARY FERRARI DO [facility] HX POLPYS [id number] 04/27/2016 06:59:00 04/27/2016 14:36:00 DIS Outpatient MARY FERRARI DO [facility] PREOP HISTORY POLYPS [id number] 09/11/2014 08:15:00 09/11/2014 23:59:59 CLS Outpatient DALLIN WOODS FACC, SALVADOR CANALES CCDS [facility] CARD CAD,AFIB,HTN [id number] 08/17/2018 15:56:00 Document Registration [id number] 12/31/2012 13:37:00 Document Registration [id number] 01/16/2012 07:50:00 Document Registration [id number] 12/09/2011 06:10:00 Document Registration [id number] 05/02/2011 07:31:00 Document Registration [id number] 05/02/2011 05:33:00 Document Registration [id number] 04/29/2011 08:31:00 Document Registration [id number] 03/18/2011 14:15:00 Document Registration [id number] 03/16/2011 09:40:00 Document Registration [id number] 11/02/2010 15:43:00 Document Registration [id number] 06/18/2018 08:45:00 Document Registration [id number] 08/08/2018 11:24:00 08/08/2018 23:59:00 DIS Outpatient Salvador Zamarripa [id number] 08/01/2018 11:12:00 08/01/2018 23:59:00 DIS Outpatient Salvador Zamarripa [id number] 07/26/2018 11:49:00 07/26/2018 23:59:00 DIS Outpatient Salvador Zamarripa [id number] 07/04/2018 09:56:00 07/04/2018 23:59:00 DIS Outpatient Hyacinth Arias [id number] 06/29/2018 13:01:00 06/29/2018 23:59:00 DIS Outpatient Hyacinth Arias [id number] 06/18/2018 08:45:00 06/18/2018 23:59:00 DIS Outpatient Salvador Zamarripa [id number] 05/23/2018 09:24:00 05/23/2018 23:59:00 DIS Outpatient Dallin, Ali [id number] 05/15/2018 08:33:00 05/15/2018 23:59:00 DIS Outpatient Dallin, Ali [id number] 05/04/2018 08:10:00 05/04/2018 23:59:00 DIS Outpatient Dallin, Ali [id number] 04/26/2018 09:48:00 04/26/2018 23:59:00 DIS Outpatient Dallin, Ali [id number] 03/29/2018 12:59:00 03/29/2018 23:59:00 DIS Outpatient Dallin, Ali [id number] 03/06/2018 12:46:00 03/06/2018 23:59:00 DIS Outpatient Dallin, Ali [id number] 02/28/2018 07:44:00 02/28/2018 23:59:00 DIS Outpatient Dallin, Ali [id number] 02/20/2018 09:52:00 02/20/2018 23:59:00 DIS Outpatient GUILLERMO, JEFFERSON [id number] 02/06/2018 08:16:00 02/06/2018 23:59:00 DIS Outpatient Dallin, Ali [id number] 01/30/2018 10:13:00 01/30/2018 23:59:00 DIS Outpatient Dallin, Ali [id number] 01/21/2018 14:36:00 01/21/2018 15:52:00 [id number] 01/02/2018 10:57:00 01/02/2018 23:59:00 DIS Outpatient Dallin, Ali [id number] 12/18/2017 07:53:00 12/18/2017 23:59:00 DIS Outpatient Sy Elias [id number] 12/14/2017 10:32:00 12/14/2017 23:59:00 DIS Outpatient Sy Elias [id number] 12/05/2017 08:44:00 12/05/2017 23:59:00 DIS Outpatient Dallin, Salvador [id number] 11/09/2017 08:35:00 11/09/2017 23:59:00 DIS Outpatient Sy Elias [id number] 11/07/2017 08:46:00 11/07/2017 23:59:00 DIS Outpatient Dallin, Ali [id number] 10/11/2017 08:25:00 10/11/2017 23:59:00 DIS Outpatient Dallin, Ali [id number] 09/26/2017 11:58:00 09/26/2017 23:59:00 DIS Outpatient Dallin, Ali [id number] 08/29/2017 08:43:00 08/29/2017 23:59:00 DIS Outpatient Hyacinth Arias [id number] 08/15/2017 08:44:00 08/15/2017 23:59:00 DIS Outpatient Dallin, Ali [id number] 08/02/2017 09:01:00 08/02/2017 23:59:00 DIS Outpatient Dallin, Ali [id number] 07/18/2017 10:41:00 07/18/2017 23:59:00 DIS Outpatient Dallin, Ali [id number] 07/04/2017 09:20:00 07/04/2017 23:59:00 DIS Outpatient Dallin, Ali [id number] 06/20/2017 08:45:00 06/20/2017 23:59:00 DIS Outpatient Dallin, Ali [id number] 05/25/2017 11:38:00 05/25/2017 23:59:00 DIS Outpatient JODI DALLIN [id number] 04/25/2017 10:29:00 04/25/2017 23:59:00 DIS Outpatient Dallin, Ali [id number] 03/28/2017 08:05:00 03/28/2017 23:59:00 DIS Outpatient Dallin, Ali [id number] 03/14/2017 10:58:00 03/14/2017 23:59:00 DIS Outpatient Dallin, Ali [id number] 03/02/2017 16:22:00 03/02/2017 23:59:00 DIS Outpatient Dallin, Ali [id number] 02/21/2017 12:34:00 02/21/2017 23:59:00 DIS Outpatient Dallin, Ali [id number] 02/15/2017 08:48:00 02/15/2017 23:59:00 DIS Outpatient Dallin, Ali [id number] 01/19/2017 10:19:00 01/19/2017 23:59:00 DIS Outpatient Dallin, Ali [id number] 01/03/2017 10:27:00 01/03/2017 23:59:00 DIS Outpatient Dallin, Ali [id number] 12/06/2016 08:11:00 12/06/2016 23:59:00 DIS Outpatient Dallin, Ali [id number] 11/21/2016 10:55:00 11/21/2016 23:59:00 DIS Outpatient Salvador Zamarripa [id number] 11/10/2016 10:38:00 11/10/2016 23:59:00 DIS Outpatient Salvador Zamarripa [id number] 10/10/2016 10:56:00 10/10/2016 23:59:00 DIS Outpatient Salvador Zamarripa [id number] 09/14/2016 09:00:00 09/14/2016 23:59:00 DIS Outpatient Salvador Zamarripa [id number] 07/26/2018 12:10:02 Document Registration [id number] 01/22/2018 13:29:15 Document Registration [id number] 01/21/2018 14:52:40 Document Registration [id number] 06/29/2018 13:01:00 Document Registration
[2018-08-20] MEDS ORDERED: LACTATED RINGERS 1,000 ML IV PRN (09:17)
[2018-08-20 09:22] LABS: INR 1.5 (0.8-1.4); PROTHROMBIN TIME PATIENT 17.9 SEC (12.2-14.7)
[2018-08-20] MEDS ORDERED: ceFAZolin 2 GM IV Premixed 50 ML IV ONE (09:30)
[2018-08-20] MEDS ORDERED: DEXAMETHASONE 10 MG/ML (DECADRON) 1 ML VIAL ONE (09:53)
[2018-08-20] MEDS ORDERED: LIDOCAINE PF 2% 5 ML (XYLOCAINE) VIAL ONE (09:53)
[2018-08-20] MEDS ORDERED: fentaNYL INJECTION 100 MCG/2 ML AMP ONE (09:53)
[2018-08-20] MEDS ORDERED: ONDANSETRON 4 MG/2 ML (SDV) Z0FRAN ONE (09:53)
[2018-08-20] MEDS ORDERED: proPOfol 200 MG/20 ML (DIPRIVAN) VIAL IV ONE (09:53)
[2018-08-20] MEDS ORDERED: LIDOCAINE JELLY 2% (XYLOCAINE) 5 ML TUBE ONE (09:53)
[2018-08-20] MEDS ORDERED: ROPIVACAINE 5MG/ML 30ML VIAL ONE (09:59)
[2018-08-20] MEDS ORDERED: LIDOCAINE/EPI 2% 1:100,00 (XYLOCAINE) 20 ML VIAL ONE (09:59)
--- NOTE | 2018-08-20 09:59 | Progress Note-Pre Operative ---
Pre-Operative Progress Note H&P Reviewed The H&P was reviewed, patient examined and no changes noted. Date Seen by Provider: Aug 20, 2018 Time Seen by Provider: : Date H&P Reviewed: Aug 20, 2018 Time H&P Reviewed: : Pre-Operative Diagnosis: grossly carious teeth, pt scheduled for radiation DRISS ELLIOTT DDS Aug 20, 2018 9:59 am
[2018-08-20] MEDS ORDERED: HYDROcodone/APAP 7.5MG-325 MG/15 ML (LORTAB) UDC PO PRN (10:00)
[2018-08-20] MEDS ORDERED: HYDROmorphone 2 MG/ML VIAL (DILAUDID) IV PRN (10:00)
[2018-08-20] MEDS ORDERED: DEXAMETHASONE 4 MG/ML SDV (DECADRON) IV SCH (10:00)
[2018-08-20] MEDS ORDERED: PHENYLEPHRINE 100 MCG/ML 10 ML (ANESTHESIA) SYR ONE (10:23)
--- NOTE | 2018-08-20 11:16 | Progress Note-Post Operative ---
Post-Operative Progess Note Surgeon (s)/Shield Operator (s) Surgeon DRISS ELLIOTT DDS Shield Operator: lc shankar Pre-Operative Diagnosis grossly carious teeth, pt scheduled for radiation Post-Operative Diagnosis same Procedure & Operative Findings Date of Procedure 08/20/18 Procedure Performed/Findings extraction of all remaining teeth Anesthesia Type geta Estimated Blood Loss Estimated blood loss (mL): minimal Specimens/Packing Specimens Removed none Packing: none DRISS ELLIOTT DDS Aug 20, 2018 11:15 am
[2018-08-20] MEDS ORDERED: ONDANSETRON 4 MG/2 ML (SDV) Z0FRAN IVP PRN (11:30)
[2018-08-20] MEDS ORDERED: HYDROmorphone 2 MG/ML VIAL (DILAUDID) IV ONE (11:30)
[2018-08-20] MEDS ORDERED: AMOX500T2 PO (11:49)
[2018-08-20] MEDS ORDERED: HYDR-4226 PO (11:49)
[2018-08-20 12:20] VITALS: BP 142/77
[2018-08-20 12:50] VITALS: BP 141/86
[2018-08-20 13:20] VITALS: BP 138/80
[2018-08-20] MEDS ORDERED: ceFAZolin INJECTION 1,000 MG in NS (IVPB) 50 ML IV SCH (14:00)
--- NOTE | 2018-08-20 14:31 | Anesthesia-General Post-Op ---
General Patient Condition Mental Status/LOC: Same as Preop Cardiovascular: Satisfactory Nausea/Vomiting: Absent Respiratory: Satisfactory Pain: Controlled Complications: Absent Post Op Complications Complications None Follow Up Care/Instructions Patient Instructions None needed. Anesthesia/Patient Condition Patient Condition Patient is doing well, no complaints, stable vital signs, no apparent adverse anesthesia problems. No complications reported per nursing. MABEL LU CRNA Aug 20, 2018 14:31
--- NOTE | 2018-08-30 00:36 | OPERATIVE REPORT ---
DATE OF SERVICE: 08/20/2018 SERVICE: screening specialist. SURGEON: Dr. Justyn Elliott. ANESTHESIOLOGIST ATTENDING: . ANESTHESIA: General endotracheal. There were no complications. BLOOD LOSS: Minimal. FLUIDS: 800 mL of crystalloid. Instrument, needle and sponge count were correct x2. HISTORY OF PRESENT ILLNESS AND INDICATION FOR PROCEDURE: The patient is a 73-year-old white female who presents with a significant medical history. She has an indwelling trach. 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 She has already received chemotherapy which she is being prepared for head and neck radiation due to her squamous cell. After speaking extensively with the family and the patient and her primary care physician as well as the physician's monitoring and maintaining her health at the it was determined that she would best be served by having removal of all her remaining teeth due to the fact she has an indwelling trach we need to make sure that we can control the airway and subsequently she is not in office, surgical candidate and the procedure will be much safer performed in operating room. DESCRIPTION OF PROCEDURE: The patient was taken to the operating room and placed on the operatory table. The appropriate monitors were placed and anesthesia was induced by removing her indwelling trach and then intubating her through her stoma. After this was secured, the surgeon left the room, scrubbed, returned, donned sterile gowns and gloves and then prepped and draped the patient in the usual standard sterile fashion. After this, we placed a throat pack. We then infiltrated in the anterior maxillary wall and then elevated a full thickness mucoperiosteal flap. After this, any upper teeth were luxated with a 301 elevator and then removed without difficulty using upper [place] forceps. So after this, any bony projections or undercuts were removed with a rongeur and we vertically removed approximately 6 to 8 mm of vertical alveolar height due to the fact she was going to have head and neck radiation. After this, we copiously irrigated with normal saline and closed with 3-0 chromic gut in a running and interrupted fashion. After this, we turned our attention to the mandible. We had placed bilateral mandibular blocks. She has had surgery in that area and has almost a bifurcated tongue flap. Subsequently, elevating the full thickness flap on the lingual aspect of the left side of her mandible was tedious and somewhat difficult; however, we are able to do that without having any tears or compromising her blood supply to that area. After this, we luxated teeth with a 301 elevator then removed the teeth without difficulty. There were no retained roots. The neurovascular bundle was not visualized. There was no excessive hemorrhage and then again I removed approximately 8 to 10 mm of vertical alveolar height due to the fact again she is going to have head and neck radiation. Then any rough or irregular surfaces were smoothed off with a bone file were then copiously irrigated with normal saline and closed with 3-0 chromic gut in a running and interrupted fashion. This completed our surgery. She was allowed to emerge from her general anesthetic again as she has an indwelling trach. They then removed her ET tube and then placed her traditional tracheostomy apparatus into her stoma. This completed our procedure. She was then transported to the recovery room and assessed to have stable vital signs and breathing spontaneously with a pulse ox of 99%. Job ID: [id number] DocumentID: [id number] Dictated Date: 08/29/2018 16:38:11 Concrete Boom Pump Operator Date: 08/30/2018 00:35:16 Dictated By: DRISS ELLIOTT DDS
== END 2018-08-20 13:40 | disposition home or self-care (01) ==
LOC: SDC 08:26
PROVIDERS: ATTEND Specialist
DX: K02.9 Dental caries, unspecified (principal); I48.91 Unspecified atrial fibrillation; I10 Essential (primary) hypertension; C10.9 Malignant neoplasm of oropharynx, unspecified; Z93.0 Tracheostomy status; Z92.21 Personal history of antineoplastic chemotherapy; Z87.891 Personal history of nicotine dependence; J44.9 Chronic obstructive pulmonary disease, unspecified; Z79.899 Other long term (current) drug therapy; Z79.01 Long term (current) use of anticoagulants; Z79.82 Long term (current) use of aspirin
CPT/HCPCS: 36415; 85610

== ENCOUNTER → 2018-09-18 | Outpatient (CLI) | payer MEDICARE ==
[~2018-09-18] MED LIST changes: +AMOX500T2 PO; +HYDR-4226 PO
== END ==
LOC: WOUNDCARE 08:03
PROVIDERS: ATTEND Nurse Practitioner
DX: L03.114 Cellulitis of left upper limb (principal); S51.802A Unspecified open wound of left forearm, initial encounter
CPT/HCPCS: 11042

== ENCOUNTER → 2018-09-25 | Outpatient (CLI) | payer MEDICARE | LOC: WOUNDCARE 08:26 | PROVIDERS: ATTEND Nurse Practitioner | DX: L03.114 Cellulitis of left upper limb (principal) | CPT/HCPCS: 11042; 87070; 87075; 87077; 87205 ==

== ENCOUNTER → 2018-10-02 | Outpatient (CLI) | payer MEDICARE | LOC: WOUNDCARE 08:10 | PROVIDERS: ATTEND Nurse Practitioner | DX: L03.114 Cellulitis of left upper limb (principal); S51.802A Unspecified open wound of left forearm, initial encounter | CPT/HCPCS: 15271 ==

== ENCOUNTER → 2018-10-09 | Outpatient (CLI) | payer MEDICARE | LOC: WOUNDCARE 08:23 | PROVIDERS: ATTEND Nurse Practitioner | DX: L03.114 Cellulitis of left upper limb (principal); S51.802A Unspecified open wound of left forearm, initial encounter | CPT/HCPCS: 15271 ==

== ENCOUNTER → 2018-10-18 | Outpatient (CLI) | payer MEDICARE | LOC: WOUNDCARE 08:09 | PROVIDERS: ATTEND Nurse Practitioner | DX: L03.114 Cellulitis of left upper limb (principal); S31.802A Laceration with foreign body of unspecified buttock, initial encounter | CPT/HCPCS: 11042 ==

== ENCOUNTER 2018-10-22 07:49 | Outpatient (RCR) | payer MEDICARE | END 2018-11-05 | disposition home or self-care (01) | LOC: ONC 07:49 | PROVIDERS: ATTEND Radiology Radiation Oncology | DX: Z51.0 Encounter for antineoplastic radiation therapy (principal); C06.9 Malignant neoplasm of mouth, unspecified; L03.114 Cellulitis of left upper limb; S51.802A Unspecified open wound of left forearm, initial encounter | CPT/HCPCS: 11042; 77300; 77301; 77334; 77336; 77338; 77386; 99204 ==

== ENCOUNTER 2018-11-13 13:12 | Outpatient (RCR) | payer MEDICARE ==
[~2018-11-13 13:12] MED LIST changes: -AMLO2.5T3 PO; +AMLO2.5T4 PO
== END 2019-02-11 | disposition home or self-care (01) ==
LOC: ONC 13:12
PROVIDERS: ATTEND Radiology Radiation Oncology
DX: C06.9 Malignant neoplasm of mouth, unspecified (principal); L03.114 Cellulitis of left upper limb; S51.802A Unspecified open wound of left forearm, initial encounter
CPT/HCPCS: 99213

== ENCOUNTER 2019-05-15 11:05 | Outpatient (RCR) | payer MEDICARE | END 2019-08-13 | disposition home or self-care (01) | LOC: ONC 11:05 | PROVIDERS: ATTEND Radiology Radiation Oncology | DX: C06.9 Malignant neoplasm of mouth, unspecified (principal); L03.114 Cellulitis of left upper limb; S51.802A Unspecified open wound of left forearm, initial encounter | CPT/HCPCS: 99213 ==

== ENCOUNTER → 2019-11-13 | Outpatient (CLI) | payer MEDICARE ==
[~2019-11-13] MED LIST changes: +OMEP40CA27 PO; -OMEP40CA36 PO; +SIMV40TA25 PO; -SIMV40TA4 PO
== END ==
LOC: EDSTATUS 08-14 11:21 → ONC 11:22
PROVIDERS: ATTEND Radiology Radiation Oncology
DX: Z79.01 Long term (current) use of anticoagulants (principal)
CPT/HCPCS: 99213

== ENCOUNTER → 2019-12-06 | Outpatient (CLI) | payer MEDICARE ==
[~2019-12-06] VITALS: Ht 150 cm; Wt 50.0 kg
[~2019-12-06] MED LIST changes: +CATHETER FLUSH 10 ML SYR IV PRN; +REGADENOSON 0.4 MG/5 ML SYR (LEXISCAN) IV ONE
--- NOTE | 2019-12-06 19:55 | STRESS TEST ---
DATE OF SERVICE: 12/06/2019 RESTING AND POST REGADENOSON TECHNETIUM-99M TETROFOSMIN SPECT CT IMAGING ORDERING PHYSICIAN: Dr. Zamarripa. PRIMARY PHYSICIAN: Dr. Arias. CLINICAL DIAGNOSES: Coronary artery disease, atrial fibrillation. Baseline images were carried out after injection of 10.98 mCi of technetium-99m Tetrofosmin. This was followed by 0.4 mg regadenoson and 29.9 mCi of technetium-99m Tetrofosmin. The electrocardiogram showed atrial fibrillation at baseline and did not change significantly with the regadenoson infusion. The patient tolerated the procedure well. Review of images at rest and following stress does not indicate any significant perfusion defects consistent with myocardial ischemia or infarction. Gated images show normal global left ventricular systolic function with normal regional wall motion. Left ventricular ejection fraction is calculated to be 57%. Left ventricular end diastolic volume is 48 mL. TID is absent (0.95). CONCLUSIONS: 1. No evidence of any significant myocardial ischemia or infarction on this study. 2. Normal regional wall motion. 3. Normal global left ventricular systolic function with a calculated ejection fraction of 57%. Job ID: [id number] DocumentID: [id number] Dictated Date: 12/06/2019 17:28:41 Wool Washing Machine Operator Date: 12/06/2019 19:54:24 Dictated By: CLAUDIA ZAMARRIPA MD, MA, FACP, FACC,
== END ==
LOC: CARD 07:02
PROVIDERS: ATTEND Internal Medicine Cardiovascular Disease
DX: I25.10 Atherosclerotic heart disease of native coronary artery without angina pectoris (principal); I77.9 Disorder of arteries and arterioles, unspecified; M79.89 Other specified soft tissue disorders; I48.91 Unspecified atrial fibrillation; Z79.01 Long term (current) use of anticoagulants; Z79.82 Long term (current) use of aspirin; Z79.899 Other long term (current) drug therapy
CPT/HCPCS: 78452; 93017

== ENCOUNTER → 2019-12-10 | Outpatient (CLI) | payer MEDICARE ==
[~2019-12-10] MED LIST changes: -CATHETER FLUSH 10 ML SYR IV PRN; -REGADENOSON 0.4 MG/5 ML SYR (LEXISCAN) IV ONE
== END ==
LOC: CARD 08:47
PROVIDERS: ATTEND Internal Medicine Cardiovascular Disease
DX: I25.10 Atherosclerotic heart disease of native coronary artery without angina pectoris (principal); I77.9 Disorder of arteries and arterioles, unspecified; M79.89 Other specified soft tissue disorders; I48.91 Unspecified atrial fibrillation; I08.2 Rheumatic disorders of both aortic and tricuspid valves; Z79.01 Long term (current) use of anticoagulants; Z79.899 Other long term (current) drug therapy
CPT/HCPCS: 93306

== ENCOUNTER 2021-05-07 17:11 | Inpatient (IN) | payer MEDICARE ==
[~2021-05-07] VITALS: Ht 145 cm; Wt 46.4 kg
[~2021-05-07 17:11] MED LIST changes: -LISI10TA2 PO; +LISI10TA25 PO; -OMEP40CA27 PO; +OMEP40CA6 PO; +WARF7.5T3 PO; -WARF7.5T49 PO
[2021-05-07] MEDS ORDERED: ONDANSETRON 4 MG/2 ML (SDV) Z0FRAN IV PRN (17:15)
[2021-05-07] MEDS ORDERED: ACETAMINOPHEN 325 MG TABLET PO PRN (17:15)
[2021-05-07] MEDS ORDERED: NS IV 500 ML 500 ML IV SCH ×3 (17:15)
[2021-05-07] MEDS ORDERED: NS IV 1000 ML 1,000 ML IV SCH (17:15)
[2021-05-07 20:35] LABS: HEMATOCRIT 21 % (35-52); MEAN CORPUSCULAR HEMOGLOBIN 32 pg (25-34); MEAN CORPUSCULAR HGB CONC 33 g/dL (32-36); MEAN CORPUSCULAR VOLUME 97 fL (80-99); MEAN PLATELET VOLUME 8.5 fL (9.0-12.2); PLATELET COUNT 189 10^3/uL (130-400); WHITE BLOOD COUNT 7.2 10^3/uL (4.3-11.0)
[2021-05-07 20:39] LABS: HEMOGLOBIN 6.7 g/dL (11.5-16.0)
[2021-05-07 20:46] LABS: ALBUMIN 2.9 GM/DL (3.2-4.5); CHLORIDE 100 MMOL/L (98-107); POTASSIUM 4.8 MMOL/L (3.6-5.0); SODIUM 134 MMOL/L (135-145)
[2021-05-07 20:47] LABS: AMMONIA 25 UMOL/L (11-32); CALCIUM 7.9 MG/DL (8.5-10.1); INR 4.6 (0.8-1.4); PROTHROMBIN TIME PATIENT 43.7 SEC (12.2-14.7)
[2021-05-07 20:49] LABS: GLUCOSE 117 MG/DL (70-105); TOTAL PROTEIN 5.2 GM/DL (6.4-8.2)
[2021-05-07 20:50] LABS: BILIRUBIN,TOTAL 0.9 MG/DL (0.1-1.0); CARBON DIOXIDE 25 MMOL/L (21-32)
[2021-05-07 20:52] LABS: ALKALINE PHOSPHATASE 46 U/L (40-136); CREATININE SERUM 0.65 MG/DL (0.60-1.30); GFR ESTIMATED > 60
[2021-05-07 20:53] LABS: BUN/CREATININE RATIO 35
[2021-05-07 20:55] LABS: ALANINE AMINOTRANSFERASE 15 U/L (0-55)
--- NOTE | 2021-05-07 20:59 | Consultation - Surgery ---
History of Present Illness History of Present Illness Patient Consulted On(lolis/time) 05/07/21 20:53 Time Seen by Provider: 20:31 History of Present Illness Surgery asked to consult regarding Anemia and possible Venous insufficiency. HPI: Pt is a 75 yo female who was transferred over from [facility] secondary to profound anemia; Hg 3.6. When I saw pt she was sitting up in bed in NAD. She presented to [place] with chief complaints of weakness and fall last night; "onto my shoulder and arm". Apparently, she had gotten a call from Dr. Zamarripa her Mission Manager who told her to hold her Coumadin because INR was 6. When she fell she tore the skin on her left arm and has continued bleeding. She denied abdominal pain and states she has been having black BMs "forever". She denied hematemesis or coughing up blood. She denied previous EGD and colonoscopy. She also didn't think she has had low blood levels before. Allergies and Home Medications Allergies Coded Allergies: No Known Drug Allergies (Unverified , 08/16/18) Home Medications Amoxicillin 500 Mg Tablet, 500 MG PO QID Prescribed by: ROBBIN WORRELL on 08/20/18 1149 Amoxicillin/Potassium Clav 1 Each Tablet, 1 EACH PO BID, (Reported) started 08/15/18 Aspirin 81 Mg Tablet.dr, 81 MG PO DAILY, (Reported) Atenolol 50 Mg Tablet, 50 MG PO DAILY, (Reported) Calcium Carbonate/Vitamin D3 1 Each Tablet, 1 EACH PO DAILY, (Reported) Cyanocobalamin (Vitamin B-12) 2,500 Mcg Tablet, 2,500 MCG PO DAILY, (Reported) Fluticasone Propionate 9.9 Ml [place].susp, 2 SPRAY NSEACH DAILY, (Reported) Hydrocodone/Acetaminophen 1 Each Tablet, 1 EACH PO Q4H Prescribed by: ROBBIN WORRELL on 08/20/18 1149 Lisinopril 10 Mg Tablet, 10 MG PO DAILY, (Reported) Loratadine 10 Mg Tablet, 10 MG PO DAILY, (Reported) Multivitamin 1 Each Tablet, 1 EACH PO DAILY, (Reported) [place] 3 Polyunsat Fatty Acids 1,000 Mg Cap, 1,000 MG PO HS, (Reported) Omeprazole 40 Mg Capsule.dr, 40 MG PO DAILY, (Reported) Simvastatin 40 Mg Tablet, 40 MG PO HS, (Reported) Warfarin Sodium 5 Mg Tablet, 5 MG PO SuFrSa, (Reported) Warfarin Sodium 5 Mg Tablet, 7.5 MG PO MoTuWeTh, (Reported) take 1 1/2 of 5mg tab Patient Home Medication List Home Medication List Reviewed: Yes Past Asfpgkf-Bggecg-Kqozwd Hx Patient Social History Smoking Status: Former Smoker Former Smoker, Quit: May 19, 2008 Type Used: Cigarettes Recent Hopitalizations: No Alcohol Use?: Yes Immunizations Up To Date Date of Pneumonia Vaccine: Aug 24, 2015 Date of Influenza Vaccine: Aug 17, 2011 Surgeries History of Surgeries: Yes (had portion of tongue removed for CA) Surgeries: Tracheostomy Respiratory History of Respiratory Disorde: Yes Respiratory Disorders: COPD Cardiovascular History of Cardiac Disorders: Yes Cardiac Disorders: Atrial Fibrillation Neurological History of Neurological Disord: No Reproductive System Hx Reproductive Disorders: No Sexually Transmitted Disease: No HIV/AIDS: No Genitourinary History of Genitourinary Disor: No Gastrointestinal History of Gastrointestinal Di: Yes Gastrointestinal Disorders: Chronic Diarrhea Musculoskeletal History of Musculoskeletal Dis: Yes Musculoskeletal Disorders: Arthritis, Chronic Back Pain Endocrine History of Endocrine Disorders: No HEENT History of HEENT Disorders: Yes HEENT Disorders: Cataract Loss of Vision: Bilateral Hearing Impairment: Hard of Hearing Cancer History of Cancer: Yes (tongue) Psychosocial History of Psychiatric Problem: No Integumentary History of Skin or Integumenta: No Family Medical History Significant Family History: Other Conditions/Hx (Pt denies any DM or HTN in her family, states all her sisters and brother are still alive) Review of Systems-General Constitutional: No diaphoresis; malaise, weakness EENTM: No blurred vision, No mouth pain, No mouth swelling, No epistaxis Respiratory: No cough; dyspnea on exertion; No hemoptysis Cardiovascular: No chest pain; palpitations Gastrointestinal: No abdominal pain; melena; No nausea, No vomiting Genitourinary: No dysuria, No frequency, No hematuria Musculoskeletal: back pain, joint pain, joint swelling, muscle stiffness Skin: No change in color, No change in hair/nails Psychiatric/Neurological: Denies Anxiety, Denies Depressed, Denies Seizure, Denies Tremors Physical Exam-General Problems Physical Exam Vital Signs Vital Signs - First Documented 05/07/21 19:50 Temp 36.8 Pulse 87 Resp 16 B/P (MAP) 117/61 (79) Pulse Ox 100 O2 Delivery Room Air Capillary Refill : General Appearance: no apparent distress, thin Eyes: Bilateral Eye PERRL, Bilateral Eye EOMI HEENT: No scleral icterus (R), No scleral icterus (L); other (missing portion of tongue) Neck: supple, other (previous surgery visible) Respiratory: lungs clear, normal breath sounds, no respiratory distress, no accessory muscle use Cardiovascular: regular rate, rhythm, no murmur Gastrointestinal: normal bowel sounds, non tender, soft, no organomegaly Back: no CVA tenderness, no vertebral tenderness Extremities: no pedal edema, no calf tenderness, normal capillary refill Neurologic/Psychiatric: alert, normal mood/affect, oriented x 3 Skin: normal color, warm/dry Lymphatic: no adenopathy (neck, axilla or groin) Data Review Labs Laboratory Tests 05/07/21 20:23: White Blood Count 7.2, Red Blood Count 2.12L, Hemoglobin 6.7*L, Hematocrit 21L, Mean Corpuscular Volume 97, Mean Corpuscular Hemoglobin 32, Mean Corpuscular Hemoglobin Concent 33, Red Cell Distribution Width 15.3H, Platelet Count 189, Mean Platelet Volume 8.5L, Sodium Level 134L, Potassium Level 4.8, Chloride Level 100, Carbon Dioxide Level 25, Anion Gap 9, Creatinine 0.65, Estimat Glomerular Filtration Rate > 60, Glucose Level 117H, Calcium Level 7.9L, Corrected Calcium 8.8, Total Bilirubin 0.9, Alkaline Phosphatase 46, Ammonia 25, Total Protein 5.2L, Albumin 2.9L Assessment/Plan Assessment/Plan Assessment/Plan Anemia - profound Melena Coagulopathy Hx of Atrial fibrillation Hyponatremia Hypoalbuminemia Pt received 2 units of PRBC at [place] and her Hg came up to 6.7; she is going to get one more unit of PRBC and one of FFP. She is on fluids which should help her hyponatremia. She received Vitamin K in [place] and her coagulopathy should also be helped by the FFP. Pt may need EGD and colonoscopy while she is here. Will talk to her and her family about it tomorrow, can't do anything until INR comes down anyway (or at least shouldn't unless it is an emergency). Pt will be closely monitored in the ICU, repeat CBC in am. I spoke with Dr. Eil about pt and the provider at [place] [facility]; went over CT report and will look at the films myself tomorrow. RONA SMALLWOOD DO May 07, 2021 20:59
[2021-05-07] MEDS ORDERED: NS IV 1000 ML 1,000 ML ONE (21:04)
[2021-05-07] MEDS: NS IV 1000 ML 1,000 ML IV SCH (21:12)
[2021-05-07 22:21] VITALS: BP 112/56
[2021-05-07 22:38] VITALS: BP 107/59
[2021-05-08 01:01] VITALS: BP_SYST 111; BP_SYST 117; BP_DIAS 61; BP_DIAS 73
[2021-05-08] MEDS ORDERED: RT-ALBUTEROL/IPRATROPIUM 3 ML (DUONEB) VIAL INH PRN (01:15)
[2021-05-08 01:25] VITALS: BP 115/58
[2021-05-08 01:39] VITALS: BP 105/62
[2021-05-08 03:28] VITALS: BP 106/59
[2021-05-08 06:12] LABS: HEMATOCRIT 22 % (35-52); HEMOGLOBIN 7.6 g/dL (11.5-16.0); MEAN CORPUSCULAR HEMOGLOBIN 32 pg (25-34); MEAN CORPUSCULAR HGB CONC 34 g/dL (32-36); MEAN CORPUSCULAR VOLUME 93 fL (80-99); MEAN PLATELET VOLUME 8.4 fL (9.0-12.2); PLATELET COUNT 160 10^3/uL (130-400); WHITE BLOOD COUNT 4.4 10^3/uL (4.3-11.0)
[2021-05-08 06:28] LABS: INR 1.9 (0.8-1.4); PROTHROMBIN TIME PATIENT 22.3 SEC (12.2-14.7)
[2021-05-08 06:29] LABS: CHLORIDE 103 MMOL/L (98-107); POTASSIUM 4.3 MMOL/L (3.6-5.0); SODIUM 136 MMOL/L (135-145)
[2021-05-08 06:31] LABS: GLUCOSE 100 MG/DL (70-105)
[2021-05-08 06:33] LABS: CARBON DIOXIDE 25 MMOL/L (21-32)
[2021-05-08 06:35] LABS: CREATININE SERUM 0.64 MG/DL (0.60-1.30); GFR ESTIMATED > 60
[2021-05-08 06:36] LABS: BUN/CREATININE RATIO 28
--- NOTE | 2021-05-08 08:56 | History & Physical-Hospitalist ---
History of Present Illness HPI/Chief Complaint Pt is a 75yoCF with a PMH Of GIB, oral cancer s/p radiation, a fib on chronic warfarin who presented to outside ER due to fall. She is unable to tell me much history and just refers me to her who is not present. Per records from [place] [facility] she was called this week by her medical practice administrator Dr Zamarripa regarding her INR level and that it was 6.7. He recommended holding warfarin and repeating. That evening she had a fall and her decided to bring her in for evaluation. She was found to have a hemoglobin of 3.6 and INR of 6.7 and was hypotensive. She was given 1 unit of pRBCS and IVF resuscitation and transferred here for further management. She reports no complaints today. She denies any dark or bloody bowel movements (though ER witnessed a large bloody bowel movement yesterday). She was transferred 2 units of pRBCs at [place] and given 2 mg oral Vitamin K. Her hemoglobin came up to 6.7 on arrival here and she received 1 unit of FFP and 1 more unit of pRBCs. Her hemoglobin this morning is 7.6. Source: patient Date Seen 05/08/21 Time Seen by a Provider: 08:47 Attending Physician Noelle Benitez MD PCP Hyacinth Arias DO Referring Physician Date of Admission May 07, 2021 at 19:40 Home Medications & Allergies Home Medications Reviewed patient Home Medication Reconciliation performed by pharmacy medication reconciliations breeding technician and/or nursing. Patients Allergies have been reviewed. Allergies Allergies Coded Allergies No Known Drug Allergies (Crqqlxfwrb09/25/18) Past Grrbxun-Svrwwn-Clgprt Hx Patient Social History Marrital Status: Employed/Student: retired Tobacco Use?: No Smoking Status: Former Smoker Smokeless Tobacco Frequency: Never a User Use of E-Cig and/or Vaping dev: No Substance use?: No Alcohol Use?: Yes Alcohol type: Wine Alcohol Frequency: Daily Pt feels they are or have been: No Immunizations Up To Date Date of Influenza Vaccine: Aug 17, 2011 First/Initial COVID19 Vaccinat: Received both- she is unsure of date Tetanus Booster (TDap): Unknown Date of Pneumonia Vaccine: Aug 24, 2015 Current Status status: No Advance Directives: No Advance Directive Location: Home Communicates: Verbally Primary Language: Syrian Preferred Spoken Language: Syrian Is interpretation needed?: No Sensory deficits: Vision impairment, Hearing impairment Implanted or Applied Medical D: None Past Medical History Surgeries: Orthopedic, Tracheostomy COPD Atrial Fibrillation Sexually Transmitted Disease: No HIV/AIDS: No Chronic Diarrhea Arthritis, Chronic Back Pain Cataract Loss of Vision: Bilateral Hearing Impairment: Hard of Hearing Oral What Type of Treatment Did You: Surgical Intervention She is unsure of her remission or treatment status or her oncologist. Family Medical History Reviewed Nursing Family Hx No Pertinent Family Hx, Other Conditions/Hx (Pt denies any DM or HTN in her fam tyler, states all her sisters and brother are still alive) Review of Systems ROS-Unable to Obtain: limited by memory- denies most symptoms Constitutional: No chills, No fever EENTM: no symptoms reported Respiratory: No cough, No short of breath Cardiovascular: No chest pain, No edema, No palpitations Gastrointestinal: see HPI; No abdominal pain, No constipation, No diarrhea Genitourinary: no symptoms reported Musculoskeletal: no symptoms reported Skin: no symptoms reported Psychiatric/Neurological: No Symptoms Reported Physical Exam Physical Exam Vital Signs Vital Signs - First Documented 05/07/21 05/07/21 05/08/21 19:45 19:50 01:01 Temp 36.8 Pulse 100 Resp 16 B/P (MAP) 117/61 (79) Pulse Ox 100 O2 Delivery Room Air FiO2 21 Capillary Refill : Height, Weight, BMI Height: 4'9.00" Weight: 109lbs. 0.0oz. 49.046176xm; 22.16 BMI Method:Stated General Appearance: No Apparent Distress, Chronically ill, Thin HEENT: PERRL/EOMI, Moist Mucous Membranes; No Scleral Icterus (L), No Scleral Icterus (R) Neck: Normal Inspection, Supple Respiratory: Lungs Clear, No Accessory Muscle Use, No Respiratory Distress Cardiovascular: No Murmur; No Systolic Murmur; Irregularly Irregular Gastrointestinal: Normal Bowel Sounds, Non Tender, Soft Extremity: Normal Capillary Refill, No Calf Tenderness, No Pedal Edema Neurologic/Psychiatric: Alert, Oriented x3 (only to major details (self, place, time), not to most other circumstances of admission), Normal Mood/Affect Skin: Normal Color, Other (skin tear on arm) Results Results/Procedures Labs Laboratory Tests 05/07/21 20:23 05/08/21 06:00 Patient resulted labs reviewed. Imaging: Reviewed Imaging Report (From [place]- No Gi or solid organ abnormalities, cholelithiasis in a collapsed gallbladder, and scolisos with right hip prothesis) Assessment/Plan Admission Diagnosis GIB bleed Admission Status: Inpatient Order (span 2 midnights) Reason for Inpatient Admission: see below Assessment and Plan GIB bleed Acute blood loss anemia Supratherapuetic INR atrial fibrillation Hemoglobin improved to 7.6 Continue protonix gtt Will repeat H&H this afternoon unless she has another bloody BM INR 1.9 now with Vitamin K and FFP- hold coumadin Not first GI bleed, will need to discuss risks vs benefits but likely will need to DC Surgery consulted, appreciate recs Cardiology consulted, appreciate recs Monitor on tele alcohol abuse She denies but per her PCP repors chronic alcohol abuse Monitor for withdrawal Ammonia level normal on admission DVT ppx: SCDs only Diagnosis/Problems Diagnosis/Problems (1) Atrial fibrillation (2) Normocytic anemia (3) History of oral cancer (4) Supratherapeutic INR (5) Alcohol abuse (6) GI bleed NOELLE BENITEZ MD May 08, 2021 08:56
--- NOTE | 2021-05-08 09:33 | Progress Note - Surgery ---
PUNEET LARSON MED STUDENT 05/08/21 0933: Subjective Date Seen by a Provider: May 08, 2021 Time Seen by a Provider: 08:35 Subjective/Events-last exam Patient is 75 year old female being followed for anemia and melena. She is sitting comfortable in bed speaking with two visitors as I walked in. She reports she feels "okay" today. She denies any pain, n/v, problems with urination. She denies feeling lightheadedness. She has not had a bowel movement since being in the hospital. She has not had anything to eat at this point. Objective Exam Vital Signs Date Time Temp Pulse Resp B/P (MAP) Pulse Ox O2 Delivery O2 Flow Rate FiO2 05/08/21 09:00 78 14 119/74 (89) 99 Room Air 05/08/21 08:00 81 21 117/69 (85) 98 Room Air 05/08/21 07:00 79 10 115/64 (81) 97 Room Air 05/08/21 07:00 85 05/08/21 06:00 86 17 114/76 (89) 98 Room Air 05/08/21 05:00 80 14 116/65 (82) 96 Room Air 05/08/21 04:00 84 13 115/57 (76) 96 Room Air 05/08/21 04:00 99 Room Air 05/08/21 03:28 36.7 81 16 106/59 99 Room Air 05/08/21 03:26 36.7 05/08/21 03:00 74 19 114/52 (72) 98 Room Air 05/08/21 02:00 75 13 106/55 (72) 98 Room Air 05/08/21 01:39 37.1 81 16 105/62 97 Room Air 05/08/21 01:25 36.2 87 16 115/58 99 Room Air 05/08/21 01:01 36.8 87 100 21 05/08/21 01:01 36.2 87 16 111/73 99 Room Air 05/08/21 01:00 106 05/08/21 01:00 111 35 101/48 (65) 100 Room Air 05/08/21 00:00 86 16 81/49 (60) 99 Room Air 05/08/21 00:00 99 Room Air 05/07/21 23:00 81 11 95/50 (65) 100 Room Air 05/07/21 22:38 36.6 84 16 107/59 99 Room Air 05/07/21 22:21 36.6 93 16 112/56 100 Room Air 05/07/21 22:00 89 13 107/60 (76) 100 Room Air 05/07/21 21:00 95 113/47 (69) 100 Room Air 05/07/21 20:00 93 16 110/68 (82) 100 Room Air 05/07/21 19:50 36.8 87 16 117/61 (79) 100 Room Air 05/07/21 19:50 100 05/07/21 19:45 100 Room Air I & O 05/08/21 07:00 Intake Total 0 ml Output Total 800 ml Balance -800 ml Capillary Refill : General Appearance: No Apparent Distress, Chronically ill, Thin HEENT: PERRL/EOMI, Moist Mucous Membranes; No Scleral Icterus (L), No Scleral Icterus (R) Neck: Supple Respiratory: Lungs Clear, No Accessory Muscle Use, No Respiratory Distress Cardiovascular: No Murmur; No Systolic Murmur; Irregularly Irregular Gastrointestinal: normal bowel sounds, non tender, soft, no organomegaly Extremity: Normal Capillary Refill, No Calf Tenderness, No Pedal Edema Neurologic/Psychiatric: Alert, Normal Mood/Affect Skin: Normal Color, Other (skin tear on arm) Results Lab Laboratory Tests 05/07/21 20:23: White Blood Count 7.2, Red Blood Count 2.12L, Hemoglobin 6.7*L, Hematocrit 21L, Mean Corpuscular Volume 97, Mean Corpuscular Hemoglobin 32, Mean Corpuscular Hemoglobin Concent 33, Red Cell Distribution Width 15.3H, Platelet Count 189, Mean Platelet Volume 8.5L, Prothrombin Time 43.7H, INR Comment 4.6H, Sodium Level 134L, Potassium Level 4.8, Chloride Level 100, Carbon Dioxide Level 25, Anion Gap 9, Blood Urea Nitrogen 23H, Creatinine 0.65, Estimat Glomerular Filtration Rate > 60, BUN/Creatinine Ratio 35, Glucose Level 117H, Calcium Level 7.9L, Corrected Calcium 8.8, Total Bilirubin 0.9, Aspartate Amino Transf (AST/SGOT) 22, Alanine Aminotransferase (ALT/SGPT) 15, Alkaline Phosphatase 46, Ammonia 25, Total Protein 5.2L, Albumin 2.9L 05/08/21 06:00: White Blood Count 4.4, Red Blood Count 2.40L, Hemoglobin 7.6L, Hematocrit 22L, Mean Corpuscular Volume 93, Mean Corpuscular Hemoglobin 32, Mean Corpuscular Hemoglobin Concent 34, Red Cell Distribution Width 18.1H, Platelet Count 160, Mean Platelet Volume 8.4L, Prothrombin Time 22.3H, INR Comment 1.9H, Sodium Level 136, Potassium Level 4.3, Chloride Level 103, Carbon Dioxide Level 25, Anion Gap 8, Blood Urea Nitrogen 18, Creatinine 0.64, Estimat Glomerular Filtration Rate > 60, BUN/Creatinine Ratio 28, Glucose Level 100, Calcium Level 8.0L Assessment/Plan Assessment/Plan Assessment/Plan Anemia - profound Melena Coagulopathy Hx of Atrial fibrillation Hyponatremia Hypoalbuminemia Pt received 2 units of PRBC at [place] and her Hg came up to 6.7; and recieved one unit of PRBC and one of FFP here at [facility]. Hgb is 7.6 today. appears to be stable. PT/INR is stabilizing (43.7 to 22.3 / 4.6 to 1.9) continue to monitor, will discuss with patient and family egd/colonoscopy during hospital visit or as outpatient today. JAMIL ALATORRE DO 05/08/21 1333: Subjective Time Seen by a Provider: 09:36 Subjective/Events-last exam Pt seen and examined, she appears comfortable. Denies abdominal pain. She is still mildly confused. Review of Systems General: Fatigue, Malaise Pulmonary: No Dyspnea, No Cough Cardiovascular: No: Chest Pain, Palpitations Gastrointestinal: Melena; No: Nausea, Vomiting, Abdominal Pain Objective Exam General Appearance: No Apparent Distress, Chronically ill, Thin HEENT: Moist Mucous Membranes; No Scleral Icterus (L), No Scleral Icterus (R) Respiratory: Lungs Clear, No Accessory Muscle Use, No Respiratory Distress Cardiovascular: No Murmur, Irregularly Irregular Gastrointestinal: normal bowel sounds, non tender, soft, no organomegaly Extremity: No Calf Tenderness, No Pedal Edema Neurologic/Psychiatric: Alert, Normal Mood/Affect Assessment/Plan Assessment/Plan Assessment/Plan Anemia - profound Melena Coagulopathy Hx of Atrial fibrillation Hyponatremia Hypoalbuminemia Pt received 2 units of PRBC at [place] and her Hg came up to 6.7; and recieved one unit of PRBC and one of FFP here at [facility]. Hgb is 7.6 today. Pt appears to be stable and PT/INR is stabilizing (43.7 to 22.3 / 4.6 to 1.9) continue to monitor, will plan for an EGD tomorrow, per family she just had a colonoscopy 3 months ago that did not show anything. Supervisory-Addendum Brief Verification & Attestation Participated in pt care: history, MDM, physical Personally performed: exam, history, MDM, supervision of care Care discussed with: Medical Student Procedures: n/a Verification and Attestation of Medical Student E/M Service A medical student performed and documented this service. I then reviewed and verified all information documented by the medical student and made modifications to such information, when appropriate. I personally performed a physical exam, medical decision making and then discussed any differences between the notes and made revisions as necessary to create one note. Jamil Alatorre , 05/08/21 , 13:33 PUNEET LARSON MED STUDENT May 08, 2021 09:33 JAMIL ALATORRE DO May 08, 2021 13:33
--- NOTE | 2021-05-08 09:41 | Consultation-Cardiology ---
HPI-Cardiology Cardiology Consultation: Date of Consultation 05/08/21 Date of Admission Attending Physician Gisella Benitez MD Admitting Physician Hyacinth Arias DO Consulting Physician YIMI CRABTREE JR, MD HPI: Time Seen by a Provider: 09:35 Chief Complaint: Reason for consultation: Permanent atrial fibrillation now with severe anemia probably due to gastrointestinal hemorrhage. She is a pleasant 75-year-old female who normally follows with one of my pa rtners, Dr. Zamarripa. 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 I spoke to the patient and her daughters who were with her in the intensive care unit. The patient does not entirely remember everything that transpired prior to her hospitalization. Her daughter states that over the past couple of days she has fallen a couple of times at home. Fortunately, she did not injure herself. However, on the day of admission her decided to take her to [facility]. She was found to have severe anemia. She was treated with 1 blood transfusion in the outside facility and transferred to [facility] in [place], [place] for further evaluation. She does remember falling several times but denies any syncope. She denies chest discomfort, dyspnea, paroxysmal nocturnal dyspnea, orthopnea, palpitations, lightheadedness, or lower extremity edema. Her manages her medications for her. Certain portions of this document may have been dictated utilizing voice recognition technology. Inherent to this technology, typographical and grammatical errors may exist. As much as I am diligent to identify and correct these mistakes, some errors may remain in the document. Review of Systems-Cardiology Review of Systems Other comments Review of 10 organ systems is as per the history of present illness, otherwise negative. However, given her obvious short-term memory loss, her answers may not be entirely accurate. [id number] Hx Patient Social History Marrital Status: Employed/Student: retired Smoking Status: Former Smoker Have you traveled recently?: No Alcohol Use?: Yes Pt feels they are or have been: No Immunizations Up To Date Date of Pneumonia Vaccine: Aug 24, 2015 Date of Influenza Vaccine: Aug 17, 2011 Past Medical History PMH As described under Assessment. Family Medical History Family Medical History: The patient does not know of any family history of premature coronary artery disease. Allergies and Home Medications Allergies Coded Allergies: No Known Drug Allergies (Unverified , 08/16/18) Home Medications Amoxicillin 500 Mg Tablet, 500 MG PO QID Prescribed by: ROBBIN WORRELL on 08/20/18 1149 Amoxicillin/Potassium Clav 1 Each Tablet, 1 EACH PO BID, (Reported) started 08/15/18 Aspirin 81 Mg Tablet.dr, 81 MG PO DAILY, (Reported) Atenolol 50 Mg Tablet, 50 MG PO DAILY, (Reported) Calcium Carbonate/Vitamin D3 1 Each Tablet, 1 EACH PO DAILY, (Reported) Cyanocobalamin (Vitamin B-12) 2,500 Mcg Tablet, 2,500 MCG PO DAILY, (Reported) Fluticasone Propionate 9.9 Ml [place].susp, 2 SPRAY NSEACH DAILY, (Reported) Hydrocodone/Acetaminophen 1 Each Tablet, 1 EACH PO Q4H Prescribed by: ROBBIN WORRELL on 08/20/18 1149 Lisinopril 10 Mg Tablet, 10 MG PO DAILY, (Reported) Loratadine 10 Mg Tablet, 10 MG PO DAILY, (Reported) Multivitamin 1 Each Tablet, 1 EACH PO DAILY, (Reported) [place] 3 Polyunsat Fatty Acids 1,000 Mg Cap, 1,000 MG PO HS, (Reported) Omeprazole 40 Mg Capsule.dr, 40 MG PO DAILY, (Reported) Simvastatin 40 Mg Tablet, 40 MG PO HS, (Reported) Warfarin Sodium 5 Mg Tablet, 5 MG PO SuFrSa, (Reported) Warfarin Sodium 5 Mg Tablet, 7.5 MG PO MoTuWeTh, (Reported) take 1 1/2 of 5mg tab Patient Home Medication List Home Medication List Reviewed: Yes Exam Vital Signs Vital Signs Date Time Temp Pulse Resp B/P (MAP) Pulse Ox O2 Delivery O2 Flow Rate FiO2 05/08/21 09:00 78 14 119/74 (89) 99 Room Air 05/08/21 03:28 36.7 05/08/21 01:01 21 Physical Exam General: Alert. No acute distress. Well nourished and appears stated ageBut appears somewhat chronically ill. Eye: Extraocular movements are intact. Conjunctivae are clear. There are no xanthelasma. HENT: Normocephalic. Atraumatic. Carotid pulsations 2/2 without bruits. Neck: Jugular venous pressure does not appear elevated. No thyromegaly appreciated. Respiratory: Lungs are clear to auscultation. Respirations are non-labored. Breath sounds are equal. Symmetrical chest wall expansion. Cardiovascular: Normal rate.Irregular rhythm. No murmur. No gallop. Point of maximal impulse is not appear displaced. Good pulses equal in all extremities. No edema. Gastrointestinal: Soft. Normal bowel sounds. Skin: Skin turgor is normal. There is no pallor. Musculoskeletal: No kyphosis or scoliosis appreciated. Neurologic: Alert and oriented to personBut not place or time. She knows she is in the hospital but she does not know which hospital.Cranial nerves 3-12 appear grossly intact. The patient has good motor tone strength in the upper and lower extremities bilaterally. Psychiatric: Cooperative. Appropriate mood & affect. However, she has obvious short-term memory loss. Labs Laboratory Tests Test 05/07/21 20:23 05/08/21 06:00 Range/Units White Blood Count 7.2 4.4 4.3-11.0 10^3/uL Red Blood Count 2.12 L 2.40 L 3.80-5.11 10^6/uL Hemoglobin 6.7 *L 7.6 L 11.5-16.0 g/dL Hematocrit 21 L 22 L 35-52 % Mean Corpuscular Volume 97 93 80-99 fL Mean Corpuscular Hemoglobin 32 32 25-34 pg Mean Corpuscular Hemoglobin Concent 33 34 32-36 g/dL Red Cell Distribution Width 15.3 H 18.1 H 10.0-14.5 % Platelet Count 189 160 130-400 10^3/uL Mean Platelet Volume 8.5 L 8.4 L 9.0-12.2 fL Prothrombin Time 43.7 H 22.3 H 12.2-14.7 SEC INR Comment 4.6 H 1.9 H 0.8-1.4 Sodium Level 134 L 136 135-145 MMOL/L Potassium Level 4.8 4.3 3.6-5.0 MMOL/L Chloride Level 100 103 98-107 MMOL/L Carbon Dioxide Level 25 25 21-32 MMOL/L Anion Gap 9 8 5-14 MMOL/L Blood Urea Nitrogen 23 H 18 7-18 MG/DL Creatinine 0.65 0.64 0.60-1.30 MG/DL Estimat Glomerular Filtration Rate > 60 > 60 BUN/Creatinine Ratio 35 28 Glucose Level 117 H 100 70-105 MG/DL Calcium Level 7.9 L 8.0 L 8.5-10.1 MG/DL Corrected Calcium 8.8 8.5-10.1 MG/DL Total Bilirubin 0.9 0.1-1.0 MG/DL Aspartate Amino Transf (AST/SGOT) 22 5-34 U/L Alanine Aminotransferase (ALT/SGPT) 15 0-55 U/L Alkaline Phosphatase 46 40-136 U/L Ammonia 25 11-32 UMOL/L Total Protein 5.2 L 6.4-8.2 GM/DL Albumin 2.9 L 3.2-4.5 GM/DL Radiology ECHOCARDIOGRAM (12/11/2019): 1.Normal left ventricular chamber size, wall thickness and systolic function with an estimated ejection fraction of 55-60%. 2. The right ventricle is dilated and dysfunctional. (Not quantified in report). 3. The left atrium is moderately to severely dilated. 4. The right atrium is severely dilated. 5. There is moderate mitral annular calcification. There is mild mitral regurgitation. 6. There is mild to moderate aortic regurgitation. 7. There is severe tricuspid regurgitation. 8. The right ventricular systolic pressure is estimated to be approximately 21 mmHg. REGADENOSON NUCLEAR STRESS TEST (12/06/2019): 1. No evidence of any significant myocardial ischemia or infarction on this study. 2. Normal regional wall motion. 3. Normal global left ventricular systolic function with a calculated ejection fraction of 57%. Diagnosis/Problems Diagnosis/Problems (1) Permanent atrial fibrillation Assessment & Plan: She has had issues with chronic anemia possibly due to recurrent gastrointestinal hemorrhaging as well as memory loss and frequent falls. She may not be a good candidate for ongoing oral anticoagulation even with a DOAC. When she recovers from this illness, we may need to consider evaluation for a Watchman device. For the time being, we will hold off on resuming anticoagulation. It appears as though she may be taking aspirin and warfarin at home. I would also suggest stopping aspirin. Once her hemoglobin has stabilized, resume atenolol for rate control. (2) Essential hypertension Assessment & Plan: Antihypertensive therapy presently on hold due to the severe anemia. This will need to be resumed once her hemoglobin has stabilized. (3) Mixed hyperlipidemia Assessment & Plan: Resume statin medication. One might consider changing this over to rosuvastatin which has less medication interactions with other drugs and simvastatin. (4) Gastrointestinal hemorrhage Assessment & Plan: General surgery is following and may proceed with endoscopy later today. We will hold warfarin for the time being. The hospitalist is managing the transfusions. (5) Frequent falls Assessment & Plan: Given her frequent falls, she may not be a good candidate for ongoing use of oral anticoagulation as outlined above. (6) Dementia Assessment & Plan: Her dementia may all also increase the potential risk of complications from chronic anticoagulation. YIMI CRABTREE JR, MD May 08, 2021 09:41
[2021-05-08] MEDS: PANTOPRAZOLE INJECTION 200 MG in NS (IVPB) 100 ML IV SCH (10:00)
--- NOTE | 2021-05-08 11:18 | Tele-ICU Consult ---
History of Present Illness History of Present Illness Date Seen by Provider: May 08, 2021 Time Seen by Provider: 11:17 Date of Admission / Reason for Visit: gib, coagulopathy History of Present Illness She is a 75-year-old chronically ill looking female with past medical history of oral cancer status post radiation, atrial fibrillation on on chronic warfarin therapy apparently was noted to have a INR which was 6.7 hence her blow machine tender starch spraying called her on hold warfarin. However yesterday she had a fall and her took her to the emergency room at a different hospital and she is found to have hemoglobin of 3.6 and INR of 6.7. Reportedly she was having a large bowel movement with blood. She was transfused at packed red blood cells and FFP and also given vitamin K and subsequently transferred to this institution. And her hemoglobin improved to 7.6. She is feeling somewhat better. Folder Gluer Operator has seen already and felt that she is a high risk for warfarin therapy and considering watchman device placement. Future date when she is more stable. I have made a video visit and discussed with the patient as well as all subsequently with the CRITICAL CARE PHYSICIAN. Allergies and Home Medications Allergies Coded Allergies: No Known Drug Allergies (Unverified , 08/16/18) Home Medications Amoxicillin 500 Mg Tablet, 500 MG PO QID Prescribed by: ROBBIN WORRELL on 08/20/18 1149 Amoxicillin/Potassium Clav 1 Each Tablet, 1 EACH PO BID, (Reported) started 08/15/18 Aspirin 81 Mg Tablet.dr, 81 MG PO DAILY, (Reported) Atenolol 50 Mg Tablet, 50 MG PO DAILY, (Reported) Calcium Carbonate/Vitamin D3 1 Each Tablet, 1 EACH PO DAILY, (Reported) Cyanocobalamin (Vitamin B-12) 2,500 Mcg Tablet, 2,500 MCG PO DAILY, (Reported) Fluticasone Propionate 9.9 Ml [place].susp, 2 SPRAY NSEACH DAILY, (Reported) Hydrocodone/Acetaminophen 1 Each Tablet, 1 EACH PO Q4H Prescribed by: ROBBIN WORRELL on 08/20/18 1149 Lisinopril 10 Mg Tablet, 10 MG PO DAILY, (Reported) Loratadine 10 Mg Tablet, 10 MG PO DAILY, (Reported) Multivitamin 1 Each Tablet, 1 EACH PO DAILY, (Reported) [place] 3 Polyunsat Fatty Acids 1,000 Mg Cap, 1,000 MG PO HS, (Reported) Omeprazole 40 Mg Capsule.dr, 40 MG PO DAILY, (Reported) Simvastatin 40 Mg Tablet, 40 MG PO HS, (Reported) Warfarin Sodium 5 Mg Tablet, 5 MG PO SuFrSa, (Reported) Warfarin Sodium 5 Mg Tablet, 7.5 MG PO MoTuWeTh, (Reported) take 1 1/2 of 5mg tab Past Medical/Social/Family Hx Patient Social History Marrital Status: Employed/Student: retired Tobacco Use?: No Smoking Status: Former Smoker Smokeless Tobacco Frequency: Never a User Use of E-Cig and/or Vaping dev: No Substance use?: No Alcohol Use?: Yes Alcohol type: Wine Alcohol Frequency: Daily Pt stated abuse/neglect: No Immunizations Up To Date First/Initial COVID19 Vaccinat: Received both- she is unsure of date Tetanus Booster (TDap): Unknown Date of Pneumonia Vaccine: Aug 24, 2015 Current Status status: No Advance Directives: No Advance Directive Location: Home Communicates: Verbally Primary Language: Turkmen Preferred Spoken Language: Turkmen Is interpretation needed?: No Sensory deficits: Vision impairment, Hearing impairment Implanted or Applied Medical D: None Review of Systems Constitutional: see HPI (per attending physician) Sepsis Event Evaluation Height, Weight, BMI Height: 4'9.00" Weight: 109lbs. 0.0oz. [id number]; 22.16 BMI Method:Stated Exam Exam Patient acknowledged, consented, and participated in this virtual visit which was conducted using real time audio/video Vital Signs Date Time Temp Pulse Resp B/P (MAP) Pulse Ox O2 Delivery O2 Flow Rate FiO2 05/08/21 10:00 84 15 130/72 (91) 91 Room Air 05/08/21 09:00 78 14 119/74 (89) 99 Room Air 05/08/21 08:00 81 21 117/69 (85) 98 Room Air 05/08/21 07:00 79 10 115/64 (81) 97 Room Air 05/08/21 07:00 85 05/08/21 06:00 86 17 114/76 (89) 98 Room Air 05/08/21 05:00 80 14 116/65 (82) 96 Room Air 05/08/21 04:00 84 13 115/57 (76) 96 Room Air 05/08/21 04:00 99 Room Air 05/08/21 03:28 36.7 81 16 106/59 99 Room Air 05/08/21 03:26 36.7 05/08/21 03:00 74 19 114/52 (72) 98 Room Air 05/08/21 02:00 75 13 106/55 (72) 98 Room Air 05/08/21 01:39 37.1 81 16 105/62 97 Room Air 05/08/21 01:25 36.2 87 16 115/58 99 Room Air 05/08/21 01:01 36.8 87 100 21 05/08/21 01:01 36.2 87 16 111/73 99 Room Air 05/08/21 01:00 106 05/08/21 01:00 111 35 101/48 (65) 100 Room Air 05/08/21 00:00 86 16 81/49 (60) 99 Room Air 05/08/21 00:00 99 Room Air 05/07/21 23:00 81 11 95/50 (65) 100 Room Air 05/07/21 22:38 36.6 84 16 107/59 99 Room Air 05/07/21 22:21 36.6 93 16 112/56 100 Room Air 05/07/21 22:00 89 13 107/60 (76) 100 Room Air 05/07/21 21:00 95 113/47 (69) 100 Room Air 05/07/21 20:00 93 16 110/68 (82) 100 Room Air 05/07/21 19:50 36.8 87 16 117/61 (79) 100 Room Air 05/07/21 19:50 100 05/07/21 19:45 100 Room Air I & O 05/08/21 07:00 Intake Total 0 ml Output Total 800 ml Balance -800 ml Height & Weight Height: 4'9.00" Weight: 109lbs. 0.0oz. 49.857466kx; 22.16 BMI Method:Stated General Appearance: No Apparent Distress, Chronically ill, Thin HEENT: PERRL/EOMI, Moist Mucous Membranes; No Scleral Icterus (L), No Scleral Icterus (R) Neck: Supple Respiratory: Lungs Clear, No Accessory Muscle Use, No Respiratory Distress Cardiovascular: No Murmur; No Systolic Murmur; Irregularly Irregular Gastrointestinal: normal bowel sounds, non tender, soft, no organomegaly Extremity: Normal Capillary Refill, No Calf Tenderness, No Pedal Edema Neurologic/Psychiatric: Alert, Normal Mood/Affect Skin: Normal Color, Other (skin tear on arm) Results Lab Laboratory Tests 05/07/21 20:23 05/08/21 06:00 Meds reviewed Assessment/Plan Assessment/Plan 1. Severe anemia secondary to gastrointestinal bleeding 2. Chronic atrial fibrillation on anticoagulant therapy 3. Supratherapeutic INR which might have contributed to GI bleed however underlying lesions cannot be ruled out such as a gastric ulcer, AVMs, colon cancer etc. 4. History of oral cancer status post radiation therapy. Recommendations 1. Continue monitor her INR and hemoglobin and transfuse as needed. 2. Surgical consultation has been requested and awaiting INR to be normalized before doing any scope. 3. Cardiology consultation has been requested and he felt that she is a high risk for anticoagulation hence is considering watchman procedure at a later date. 4. Poor nutritional status. Critical Care: Critically Ill Patient Time spent with patient (mins): 45 Diagnosis/Problems Problems/Diagonsis (1) GI bleed (2) Supratherapeutic INR (3) History of oral cancer (4) Permanent atrial fibrillation (5) Frequent falls (6) Dementia EDOUARD BLANCA MD May 08, 2021 11:18
[2021-05-09 02:35] LABS: BASOPHILS % (AUTO) 0 % (0-10); EOSINOPHILS # (AUTO) 0.1 10^3/uL (0.0-0.3); EOSINOPHILS % (AUTO) 3 % (0-10); HEMATOCRIT 22 % (35-52); HEMOGLOBIN 7.3 g/dL (11.5-16.0); LYMPHOCYTES # (AUTO) 0.7 10^3/uL (1.0-4.0); LYMPHOCYTES % (AUTO) 16 % (12-44); MEAN CORPUSCULAR HEMOGLOBIN 31 pg (25-34); MEAN CORPUSCULAR HGB CONC 33 g/dL (32-36); MEAN CORPUSCULAR VOLUME 96 fL (80-99); MEAN PLATELET VOLUME 8.4 fL (9.0-12.2); MONOCYTES # (AUTO) 0.4 10^3/uL (0.0-1.0); MONOCYTES % (AUTO) 9 % (0-12); NEUTROPHILS # (AUTO) 2.9 10^3/uL (1.8-7.8); NEUTROPHILS % (AUTO) 71 % (42-75); PLATELET COUNT 163 10^3/uL (130-400); WHITE BLOOD COUNT 4.1 10^3/uL (4.3-11.0)
[2021-05-09 02:44] LABS: CHLORIDE 104 MMOL/L (98-107); INR 1.4 (0.8-1.4); POTASSIUM 3.7 MMOL/L (3.6-5.0); PROTHROMBIN TIME PATIENT 17.5 SEC (12.2-14.7); SODIUM 135 MMOL/L (135-145)
[2021-05-09 02:45] LABS: CALCIUM 7.7 MG/DL (8.5-10.1)
[2021-05-09 02:46] LABS: GLUCOSE 92 MG/DL (70-105)
[2021-05-09 02:47] LABS: CARBON DIOXIDE 24 MMOL/L (21-32)
[2021-05-09 02:49] LABS: CREATININE SERUM 0.57 MG/DL (0.60-1.30); GFR ESTIMATED > 60; PHOSPHORUS 2.9 MG/DL (2.3-4.7)
[2021-05-09 02:50] LABS: BUN/CREATININE RATIO 23
[2021-05-09 02:52] LABS: MAGNESIUM 1.5 MG/DL (1.6-2.4)
[2021-05-09] MEDS: NS IV 1000 ML 1,000 ML IV SCH ×2 (03:52→05:25)
[2021-05-09] MEDS: PANTOPRAZOLE INJECTION 200 MG in NS (IVPB) 100 ML IV SCH (03:52)
--- NOTE | 2021-05-09 06:58 | Progress Note - Hospitalist ---
Subjective HPI/CC On Admission Date Seen by Provider: May 09, 2021 Time Seen by Provider: 10:00 Pt is a 75yoCF with a PMH Of GIB, oral cancer s/p radiation, a fib on chronic warfarin who presented to outside ER due to fall. She is unable to tell me much history and just refers me to her who is not present. Per records from [place] [facility] she was called this week by her woolen tester Dr Zamarripa regarding her INR level and that it was 6.7. He recommended holding warfarin and repeating. That evening she had a fall and her decided to bring her in for evaluation. She was found to have a hemoglobin of 3.6 and INR of 6.7 and was hypotensive. She was given 1 unit of pRBCS and IVF resuscitation and transferred here for further management. She reports no complaints today. She denies any dark or bloody bowel movements (though ER witnessed a large bloody bowel movement yesterday). She was transferred 2 units of pRBCs at [place] and given 2 mg oral Vitamin K. Her hemoglobin came up to 6.7 on arrival here and she received 1 unit of FFP and 1 more unit of pRBCs. Her hemoglobin this morning is 7.6. Subjective/Events-last exam Patient feels a lot better Hemoglobin 7.3 IV iron infusion will be started Transferring to fourth floor and daughters at the bedside No alcohol withdrawal Cardiology consulted EGD was negative for any type of bleeding Review of Systems General: Fatigue, Malaise Objective Exam Vital Signs Vital Signs Date Time Temp Pulse Resp B/P (MAP) Pulse Ox O2 Delivery O2 Flow Rate FiO2 05/10/21 04:26 36.6 96 20 148/86 (106) 93 Room Air 05/08/21 01:01 21 Capillary Refill : General Appearance: No Apparent Distress, WD/WN, Chronically ill Respiratory: Lungs Clear Cardiovascular: Irregularly Irregular, Tachycardia Neurologic/Psychiatric: Alert, Oriented x3, No Motor/Sensory Deficits, Normal Mood/Affect Results/Procedures Lab Laboratory Tests 05/10/21 04:48 Patient resulted labs reviewed. 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
[2021-05-09 07:23] LABS: ALBUMIN 2.7 GM/DL (3.2-4.5)
[2021-05-09 07:26] LABS: TOTAL PROTEIN 4.8 GM/DL (6.4-8.2)
[2021-05-09 07:28] LABS: BILIRUBIN,TOTAL 1.3 MG/DL (0.1-1.0)
[2021-05-09 07:31] LABS: BILIRUBIN,DIRECT 0.6 MG/DL (0.0-0.3); BILIRUBIN,INDIRECT 0.7 MG/DL
--- NOTE | 2021-05-09 09:10 | Progress Note - Surgery ---
Subjective Time Seen by a Provider: 08:41 Subjective/Events-last exam Pt seen and examined, no new complaints and denies abdominal pain. Review of Systems General: No Chills, No Night Sweats; Fatigue Pulmonary: No Dyspnea, No Cough Cardiovascular: No: Chest Pain, Palpitations Gastrointestinal: No: Nausea, Vomiting, Abdominal Pain Objective Exam Vital Signs Date Time Temp Pulse Resp B/P (MAP) Pulse Ox O2 Delivery O2 Flow Rate FiO2 05/09/21 08:00 75 16 137/72 (93) 97 Room Air 05/09/21 08:00 36.8 05/09/21 07:00 81 30 143/72 (95) 98 Room Air 05/09/21 07:00 67 05/09/21 06:00 92 136/70 (92) 98 Room Air 05/09/21 05:00 102 30 143/59 (87) 97 Room Air 05/09/21 04:55 95 Room Air 05/09/21 04:55 36.4 05/09/21 04:00 86 13 118/78 (91) 95 Room Air 05/09/21 03:00 84 15 132/71 (91) 97 Room Air 05/09/21 02:00 78 12 95/59 (71) 97 Room Air 05/09/21 01:00 69 14 90/56 (67) 96 Room Air 05/09/21 01:00 78 05/09/21 00:00 95 Room Air 05/09/21 00:00 36.6 05/09/21 00:00 73 20 101/55 (70) 92 Room Air 05/08/21 23:00 76 15 92/51 (65) 95 Room Air 05/08/21 22:00 80 15 114/59 (77) 96 Room Air 05/08/21 21:00 79 9 115/63 (80) 96 Room Air 05/08/21 20:00 37.1 05/08/21 20:00 95 Room Air 05/08/21 20:00 80 10 116/66 (83) 96 Room Air 05/08/21 19:00 79 05/08/21 19:00 81 13 107/59 (75) 97 Room Air 05/08/21 18:00 89 27 98 Room Air 05/08/21 17:00 86 20 100 Room Air 05/08/21 16:45 97 Room Air 05/08/21 16:00 37.3 05/08/21 16:00 87 21 130/70 (90) 97 Room Air 05/08/21 15:00 87 39 124/68 (86) 97 Room Air 05/08/21 14:00 104 24 122/92 (102) 97 Room Air 05/08/21 13:00 82 27 124/76 (92) 99 Room Air 05/08/21 13:00 83 05/08/21 12:00 89 17 135/87 (103) 94 Room Air 05/08/21 11:45 36.9 05/08/21 11:00 79 124/63 (83) 95 Room Air 05/08/21 10:00 84 15 130/72 (91) 91 Room Air I & O 05/09/21 07:00 Intake Total 1960 ml Output Total 450 ml Balance 1510 ml Capillary Refill : General Appearance: No Apparent Distress, Chronically ill, Thin HEENT: Moist Mucous Membranes; No Scleral Icterus (L), No Scleral Icterus (R) Neck: Supple Respiratory: Lungs Clear, No Accessory Muscle Use, No Respiratory Distress Cardiovascular: No Murmur, Irregularly Irregular Gastrointestinal: normal bowel sounds, non tender, soft, no organomegaly Extremity: No Calf Tenderness, No Pedal Edema Neurologic/Psychiatric: Alert, Normal Mood/Affect Skin: Normal Color, Other (skin tear on arm) Results Lab Laboratory Tests 05/08/21 16:02: SARS-CoV-2 RNA (RT-PCR) Not Detected 05/09/21 02:20: White Blood Count 4.1L, Red Blood Count 2.33L, Hemoglobin 7.3L, Hematocrit 22L, Mean Corpuscular Volume 96, Mean Corpuscular Hemoglobin 31, Mean Corpuscular Hemoglobin Concent 33, Red Cell Distribution Width 19.6H, Platelet Count 163, Mean Platelet Volume 8.4L, Immature Granulocyte % (Auto) 1, Neutrophils (%) (Auto) 71, Lymphocytes (%) (Auto) 16, Monocytes (%) (Auto) 9, Eosinophils (%) (Auto) 3, Basophils (%) (Auto) 0, Neutrophils # (Auto) 2.9, Lymphocytes # (Auto) 0.7L, Monocytes # (Auto) 0.4, Eosinophils # (Auto) 0.1, Basophils # (Auto) 0.0, Immature Granulocyte # (Auto) 0.0, Prothrombin Time 17.5H, INR Comment 1.4, Sodium Level 135, Potassium Level 3.7, Chloride Level 104, Carbon Dioxide Level 24, Anion Gap 7, Blood Urea Nitrogen 13, Creatinine 0.57L, Estimat Glomerular Filtration Rate > 60, BUN/Creatinine Ratio 23, Glucose Level 92, Calcium Level 7.7L, Phosphorus Level 2.9, Magnesium Level 1.5L, Total Bilirubin 1.3H, Direct Bilirubin 0.6H, Indirect Bilirubin 0.7, Aspartate Amino Transf (AST/SGOT) 24, Alanine Aminotransferase (ALT/SGPT) 14, Alkaline Phosphatase 45, Total Protein 4.8L, Albumin 2.7L Microbiology 05/07/21 MRSA Screen - Final, Complete MRSA not isolated Assessment/Plan Assessment/Plan Assessment/Plan Anemia - profound Melena Coagulopathy Hx of Atrial fibrillation Hyponatremia Hypoalbuminemia Pt appears to be stable and PT/INR is stable; plan for an EGD this am. Family at bedside; neither they nor pt had questions. RONA SMALLWOOD DO May 09, 2021 09:10
[2021-05-09] MEDS ORDERED: proPOfol 200 MG/20 ML (DIPRIVAN) VIAL IV ONE (10:09)
--- NOTE | 2021-05-09 10:27 | Anesthesia-General Post-Op ---
MAC Patient Condition Mental Status/LOC: Same as Preop Cardiovascular: Satisfactory Nausea/Vomiting: Absent Respiratory: Satisfactory Pain: Controlled Complications: Absent Post Op Complications Complications None Follow Up Care/Instructions Patient Instructions None needed. Anesthesiology Discharge Order Discharge Order Patient is doing well, no complaints, stable vital signs, no apparent adverse anesthesia problems. No complications reported per nursing. JULIO CORDERO CRNA May 09, 2021 10:27
[2021-05-09] MEDS ORDERED: IRON SUCROSE 200 MG/10 ML (VENOFER) VIAL IV SCH (11:15)
--- NOTE | 2021-05-09 11:30 | Tele-ICU Progress Note ---
Subjective Date Seen by a Provider: May 09, 2021 Time Seen by a Provider: 11:25 Subjective/Events-last exam Patient today is more alert and oriented. I have made a video visit and discussed with the MACHINE I TRIMMER as well as the patient. No active bleeding present. INR is normal. She is scheduled for a EGD today. Vital signs are stable Sepsis Event Evaluation Height, Weight, BMI Height: 4'9.00" Weight: 109lbs. 0.0oz. [id number]; 22.16 BMI Method:Stated Exam Exam Patient acknowledged, consented, and participated in this virtual visit which was conducted using real time audio/video Vital Signs Date Time Temp Pulse Resp B/P (MAP) Pulse Ox O2 Delivery O2 Flow Rate FiO2 05/09/21 10:00 75 14 98 Room Air 05/09/21 09:00 84 18 126/69 (88) 98 Room Air 05/09/21 08:00 75 16 137/72 (93) 97 Room Air 05/09/21 08:00 36.8 05/09/21 07:00 81 30 143/72 (95) 98 Room Air 05/09/21 07:00 67 05/09/21 06:00 92 136/70 (92) 98 Room Air 05/09/21 05:00 102 30 143/59 (87) 97 Room Air 05/09/21 04:55 95 Room Air 05/09/21 04:55 36.4 05/09/21 04:00 86 13 118/78 (91) 95 Room Air 05/09/21 03:00 84 15 132/71 (91) 97 Room Air 05/09/21 02:00 78 12 95/59 (71) 97 Room Air 05/09/21 01:00 69 14 90/56 (67) 96 Room Air 05/09/21 01:00 78 05/09/21 00:00 95 Room Air 05/09/21 00:00 36.6 05/09/21 00:00 73 20 101/55 (70) 92 Room Air 05/08/21 23:00 76 15 92/51 (65) 95 Room Air 05/08/21 22:00 80 15 114/59 (77) 96 Room Air 05/08/21 21:00 79 9 115/63 (80) 96 Room Air 05/08/21 20:00 37.1 05/08/21 20:00 95 Room Air 05/08/21 20:00 80 10 116/66 (83) 96 Room Air 05/08/21 19:00 79 05/08/21 19:00 81 13 107/59 (75) 97 Room Air 05/08/21 18:00 89 27 98 Room Air 05/08/21 17:00 86 20 100 Room Air 05/08/21 16:45 97 Room Air 05/08/21 16:00 37.3 05/08/21 16:00 87 21 130/70 (90) 97 Room Air 05/08/21 15:00 87 39 124/68 (86) 97 Room Air 05/08/21 14:00 104 24 122/92 (102) 97 Room Air 05/08/21 13:00 82 27 124/76 (92) 99 Room Air 05/08/21 13:00 83 05/08/21 12:00 89 17 135/87 (103) 94 Room Air 05/08/21 11:45 36.9 I & O 05/09/21 07:00 Intake Total 1960 ml Output Total 450 ml Balance 1510 ml Height & Weight Height: 4'9.00" Weight: 109lbs. 0.0oz. [id number]; 22.16 BMI Method:Stated General Appearance: No Apparent Distress, Chronically ill, Thin HEENT: Moist Mucous Membranes; No Scleral Icterus (L), No Scleral Icterus (R) Neck: Supple Respiratory: Lungs Clear, No Accessory Muscle Use, No Respiratory Distress Cardiovascular: No Murmur, Irregularly Irregular Gastrointestinal: normal bowel sounds, non tender, soft, no organomegaly Extremity: No Calf Tenderness, No Pedal Edema Neurologic/Psychiatric: Alert, Normal Mood/Affect Skin: Normal Color, Other (skin tear on arm) Results Lab Laboratory Tests 05/07/21 20:23 05/08/21 06:00 05/09/21 02:20 Meds reviewed Assessment/Plan Assessment/Plan 1. Severe anemia secondary to gastrointestinal bleeding now controlled 2. Chronic atrial fibrillation was on anticoagulant therapy, now on hold 3. Supratherapeutic INR which might have contributed to GI bleed however unde rlying lesions cannot be ruled out such as a gastric ulcer, AVMs, colon cancer etc.today inr is 1.4 4. History of oral cancer status post radiation therapy. Recommendations 1. EGD today. 2. continue monitor hb. 3. Cardiology consultation has been requested and he felt that she is a high risk for anticoagulation hence is considering watchman procedure at a later date. 4. Poor nutritional status. Critical Care: Critically Ill Patient Time spent with patient (mins): 20 Diagnosis/Problems Diagnosis/Problems (1) GI bleed (2) Supratherapeutic INR (3) History of oral cancer (4) Permanent atrial fibrillation (5) Frequent falls (6) Dementia EDOUARD BLANCA MD May 09, 2021 11:30
--- NOTE | 2021-05-09 11:50 | Cardiology Progress Note ---
Progress Note-Cardiology Events since last exam Date Seen by Provider: May 09, 2021 Time Seen by Provider: 11:44 Events since last exam We are seeing her due to permanent atrial fibrillation now with probable anemia due to acute blood loss. She underwent an upper endoscopy this morning which did not identify any upper gastrointestinal source of bleeding. She denies chest discomfort, dyspnea, palpitations, syncope, or ankle edema. Certain portions of this document may have been dictated utilizing voice re cognition technology. Inherent to this technology, typographical and grammatical errors may exist. As much as I am diligent to identify and correct these mistakes, some errors may remain in the document. Vitals Last set of Vitals Signs Vital Signs 05/09/21 05/09/21 08:00 11:00 Temp 36.8 Pulse 374 Resp 27 B/P (MAP) 132/78 (96) Pulse Ox 99 O2 Delivery Room Air Labs Labs Laboratory Tests 05/09/21 02:20 Exam Vital Signs Vital Signs Date Time Temp Pulse Resp B/P (MAP) Pulse Ox O2 Delivery O2 Flow Rate FiO2 05/09/21 11:00 374 27 132/78 (96) 99 Room Air 05/09/21 08:00 36.8 05/08/21 01:01 21 Physical Exam General: Alert. No acute distress. Eye: No xanthelasma. HENT: Normocephalic. Neck: Jugular venous pressure does not appear elevated. Respiratory: Lungs are clear to auscultation. Respirations are non-labored. Breath sounds are equal. Symmetrical chest wall expansion. Cardiovascular: Normal rate. Irregular rhythm. No murmur. No gallop. No edema. Gastrointestinal: Soft. Normal bowel sounds. Skin: Warm. Dry. Neurologic: Alert and oriented to person, place but not time. Cranial nerves 3- 11 grossly intact. Psychiatric: Cooperative. Appropriate mood & affect. Labs Laboratory Tests Test 05/08/21 16:02 05/09/21 02:20 Range/Units SARS-CoV-2 RNA (RT-PCR) Not Detected Not Detecte White Blood Count 4.1 L 4.3-11.0 10^3/uL Red Blood Count 2.33 L 3.80-5.11 10^6/uL Hemoglobin 7.3 L 11.5-16.0 g/dL Hematocrit 22 L 35-52 % Mean Corpuscular Volume 96 80-99 fL Mean Corpuscular Hemoglobin 31 25-34 pg Mean Corpuscular Hemoglobin Concent 33 32-36 g/dL Red Cell Distribution Width 19.6 H 10.0-14.5 % Platelet Count 163 130-400 10^3/uL Mean Platelet Volume 8.4 L 9.0-12.2 fL Immature Granulocyte % (Auto) 1 % Neutrophils (%) (Auto) 71 42-75 % Lymphocytes (%) (Auto) 16 12-44 % Monocytes (%) (Auto) 9 0-12 % Eosinophils (%) (Auto) 3 0-10 % Basophils (%) (Auto) 0 0-10 % Neutrophils # (Auto) 2.9 1.8-7.8 10^3/uL Lymphocytes # (Auto) 0.7 L 1.0-4.0 10^3/uL Monocytes # (Auto) 0.4 0.0-1.0 10^3/uL Eosinophils # (Auto) 0.1 0.0-0.3 10^3/uL Basophils # (Auto) 0.0 0.0-0.1 10^3/uL Immature Granulocyte # (Auto) 0.0 0.0-0.1 10^3/uL Prothrombin Time 17.5 H 12.2-14.7 SEC INR Comment 1.4 0.8-1.4 Sodium Level 135 135-145 MMOL/L Potassium Level 3.7 3.6-5.0 MMOL/L Chloride Level 104 98-107 MMOL/L Carbon Dioxide Level 24 21-32 MMOL/L Anion Gap 7 5-14 MMOL/L Blood Urea Nitrogen 13 7-18 MG/DL Creatinine 0.57 L 0.60-1.30 MG/DL Estimat Glomerular Filtration Rate > 60 BUN/Creatinine Ratio 23 Glucose Level 92 70-105 MG/DL Calcium Level 7.7 L 8.5-10.1 MG/DL Phosphorus Level 2.9 2.3-4.7 MG/DL Magnesium Level 1.5 L 1.6-2.4 MG/DL Total Bilirubin 1.3 H 0.1-1.0 MG/DL Direct Bilirubin 0.6 H 0.0-0.3 MG/DL Indirect Bilirubin 0.7 MG/DL Aspartate Amino Transf (AST/SGOT) 24 5-34 U/L Alanine Aminotransferase (ALT/SGPT) 14 0-55 U/L Alkaline Phosphatase 45 40-136 U/L Total Protein 4.8 L 6.4-8.2 GM/DL Albumin 2.7 L 3.2-4.5 GM/DL Diagnosis/Problems Diagnosis/Problems (1) Permanent atrial fibrillation Assessment & Plan: She has had issues with chronic anemia possibly due to recurrent gastrointestinal hemorrhaging as well as memory loss and frequent falls. She may not be a good candidate for ongoing oral anticoagulation even with a DOAC. The upper endoscopy did not reveal any source of hemorrhaging. I will wait until she has another 24 hours of a stable hemoglobin level before considering any sort of anticoagulation. If her hemoglobin is stable tomorrow, I will consider starting her on apixaban. When she recovers from this illness, we may need to consider evaluation for a Watchman device. It appears as though she was taking aspirin and warfarin at home. The aspirin has been discontinued. Beta-hieu has been restarted for rate control. (2) Essential hypertension Assessment & Plan: Atenolol has been restarted and blood pressures are under good control. (3) Mixed hyperlipidemia Assessment & Plan: Simvastatin has been restarted. I will add a lipid panel to the blood from this morning. (4) Gastrointestinal hemorrhage Assessment & Plan: As above, she underwent an upper endoscopy that did not show any source of hemorrhaging. Anticoagulation should be held for at least another 24 hours. (5) Frequent falls Assessment & Plan: Given her frequent falls, she may not be a good candidate for ongoing use of oral anticoagulation as outlined above. (6) Dementia Assessment & Plan: Her dementia may all also increase the potential risk of complications from chronic anticoagulation. This would be another reason to consider a Watchman device down the road. YIMI CRABTREE JR, MD May 09, 2021 11:50
--- NOTE | 2021-05-09 11:53 | Progress Note-Post Operative ---
Post-Operative Progess Note Surgeon (s)/Video Production Intern (s) Surgeon RONA SMALLWOOD DO Video Production Intern: none Pre-Operative Diagnosis Anemia, Melena Post-Operative Diagnosis same plus AVM gastritis hiatal hernia Procedure & Operative Findings Date of Procedure 05/09/21 Procedure Performed/Findings PROCEDURE NOTE: After informed consent was obtained, the patient was in her bed in the ICU, placed in bed in left lateral decubitus position. She was administered IV sedation by the LIBRARY SERVICES ASSISTANT who then monitored vitals the entire time, heart rate, blood pressure and pulse ox and the scope was inserted down the mouth through the esophagus into the stomach. On the way down, noted some mild esophagitis, took a picture, pushed into the stomach, pushed past the antrum into the duodenum. Duodenum looked good. Pulled back and noted multiple AVMs in the stomach and took pictures, then retroflexed the scope, saw hiatal hernia, took a picture of this and then pulled the scope into the GE junction, took a picture of the GE junction. Pushed the scope back into the stomach, suctioned all the air out of the stomach. At this point pulled the scope up the esophagus and out the mouth. The patient tolerated the procedure, and she recovered in endoscopy suite. Anesthesia Type IV sedation by LIBRARY SERVICES ASSISTANT Estimated Blood Loss Estimated blood loss (mL): none Specimens/Packing Specimens Removed none RONA SMALLWOOD DO May 09, 2021 11:53
[2021-05-09 11:59] LABS: TRIGLYCERIDES 89 MG/DL (<150); VLDL CHOLESTEROL 18 MG/DL (5-40)
[2021-05-09 12:04] LABS: CHOLESTEROL 106 MG/DL (< 200)
[2021-05-09 12:05] LABS: HDL CHOLESTEROL 39 MG/DL (40-60)
[2021-05-09] MEDS: HYDROcodone/APAP 5 MG/325 MG (LORTAB) TAB PO SCH ×4 (12:16→23:15)
[2021-05-09] MEDS ORDERED: SIMvastatin 40 MG (ZOCOR) TAB PO SCH (21:00)
[2021-05-10] MEDS: NS IV 1000 ML 1,000 ML IV SCH
[2021-05-10] MEDS: HYDROcodone/APAP 5 MG/325 MG (LORTAB) TAB PO SCH ×3 (04:00→11:24)
[2021-05-10 05:26] LABS: BASOPHILS % (AUTO) 0 % (0-10); EOSINOPHILS # (AUTO) 0.1 10^3/uL (0.0-0.3); EOSINOPHILS % (AUTO) 1 % (0-10); HEMATOCRIT 25 % (35-52); HEMOGLOBIN 8.2 g/dL (11.5-16.0); LYMPHOCYTES # (AUTO) 0.5 10^3/uL (1.0-4.0); LYMPHOCYTES % (AUTO) 4 % (12-44); MEAN CORPUSCULAR HEMOGLOBIN 32 pg (25-34); MEAN CORPUSCULAR HGB CONC 33 g/dL (32-36); MEAN CORPUSCULAR VOLUME 98 fL (80-99); MEAN PLATELET VOLUME 8.9 fL (9.0-12.2); MONOCYTES # (AUTO) 0.5 10^3/uL (0.0-1.0); MONOCYTES % (AUTO) 4 % (0-12); NEUTROPHILS # (AUTO) 9.5 10^3/uL (1.8-7.8); NEUTROPHILS % (AUTO) 90 % (42-75); PLATELET COUNT 256 10^3/uL (130-400); WHITE BLOOD COUNT 10.6 10^3/uL (4.3-11.0)
[2021-05-10 05:33] LABS: CHLORIDE 103 MMOL/L (98-107); POTASSIUM 3.6 MMOL/L (3.6-5.0); SODIUM 134 MMOL/L (135-145)
[2021-05-10 05:34] LABS: CALCIUM 7.8 MG/DL (8.5-10.1); INR 1.2 (0.8-1.4); PROTHROMBIN TIME PATIENT 15.7 SEC (12.2-14.7)
[2021-05-10 05:35] LABS: GLUCOSE 109 MG/DL (70-105); TOTAL PROTEIN 5.4 GM/DL (6.4-8.2)
[2021-05-10 05:36] LABS: CARBON DIOXIDE 22 MMOL/L (21-32)
[2021-05-10 05:37] LABS: BILIRUBIN,TOTAL 0.9 MG/DL (0.1-1.0)
[2021-05-10 05:38] LABS: ALKALINE PHOSPHATASE 50 U/L (40-136); CREATININE SERUM 0.61 MG/DL (0.60-1.30); GFR ESTIMATED > 60
[2021-05-10 05:40] LABS: BUN/CREATININE RATIO 15
[2021-05-10 05:41] LABS: ALANINE AMINOTRANSFERASE 15 U/L (0-55)
[2021-05-10 05:55] LABS: BAND NEUTROPHILS 2 %; EOSINOPHILS % (MANUAL) 3 %; LYMPHOCYTES % (MANUAL) 8 %; MONOCYTES % (MANUAL) 2 %; NEUTROPHILS % (MANUAL) 85 %; POLYCHROMASIA SLIGHT
--- NOTE | 2021-05-10 05:56 | Progress Note - Hospitalist ---
Subjective HPI/CC On Admission Date Seen by Provider: May 10, 2021 Time Seen by Provider: 10:30 Pt is a 75yoCF with a PMH Of GIB, oral cancer s/p radiation, a fib on chronic warfarin who presented to outside ER due to fall. She is unable to tell me much history and just refers me to her who is not present. Per records from [facility] she was called this week by her oil mixer Dr Zamarripa regarding her INR level and that it was 6.7. He recommended holding warfarin and repeating. That evening she had a fall and her decided to bring her in for evaluation. She was found to have a hemoglobin of 3.6 and INR of 6.7 and was hypotensive. She was given 1 unit of pRBCS and IVF resuscitation and transferred here for further management. She reports no complaints today. She denies any dark or bloody bowel movements (though ER witnessed a large bloody bowel movement yesterday). She was transferred 2 units of pRBCs at [facility] and given 2 mg oral Vitamin K. Her hemoglobin came up to 6.7 on arrival here and she received 1 unit of FFP and 1 more unit of pRBCs. Her hemoglobin this morning is 7.6. Subjective/Events-last exam See discharge summary Objective Exam Vital Signs Vital Signs Date Time Temp Pulse Resp B/P (MAP) Pulse Ox O2 Delivery O2 Flow Rate FiO2 05/10/21 13:52 37.6 77 14 134/76 96 Room Air 05/08/21 01:01 21 Capillary Refill : General Appearance: No Apparent Distress, WD/WN, Chronically ill Results/Procedures Lab Patient resulted labs reviewed. Imaging: Reviewed Imaging Report (From [facility]- No Gi or solid organ abnormal ities, cholelithiasis in a collapsed gallbladder, and scolisos with right hip prothesis) Assessment/Plan Assessment and Plan Assess & Plan/Chief Complaint Assessment: Severe anemia Blood transfusion required Alcoholism in denial Cirrhosis Dementia History of tongue cancer status post reconstruction at Chronic hyponatremia Chronic atrial fibrillation Previously on warfarin and this is the third life-threatening bleed so no longer a candidate Plan: Transfer to fourth floor Iron infusion PT and OT See discharge summary Critical Care Critically Ill Patient HICKEYLUCINDA SANTAMARIAGabriele HENSLEY May 10, 2021 05:56
--- NOTE | 2021-05-10 07:46 | Progress Note - Surgery ---
PUNEET LARSON MED STUDENT 05/10/21 0746: Subjective Date Seen by a Provider: May 10, 2021 Time Seen by a Provider: 07:00 Subjective/Events-last exam Patient is 89 year old female s/p EGD POD#1. She states she feels "great" She has no complaints. She denies gerd like symptoms, nausea, vomiting, or abdominal pain. She has been tolerating her diet. She claims to have no problems with urination, or with bowel movements. She does need assistance when using the restroom. Review of Systems General: No Chills, No Night Sweats HEENT: No Head Aches, No Visual Changes Pulmonary: No Dyspnea, No Cough Cardiovascular: No: Chest Pain, Palpitations Gastrointestinal: No: Nausea, Vomiting, Abdominal Pain Genitourinary: No Dysuria, No Hematuria Musculoskeletal: No: other (myalgias/arthraglias) Neurological: Weakness; No: Numbness Objective Exam Vital Signs Date Time Temp Pulse Resp B/P (MAP) Pulse Ox O2 Delivery O2 Flow Rate FiO2 05/10/21 04:26 36.6 96 20 148/86 (106) 93 Room Air 05/10/21 00:00 36.6 85 20 139/76 (97) 97 Room Air 05/09/21 20:20 Room Air 05/09/21 20:00 37.4 89 20 137/68 (91) 94 Room Air 05/09/21 16:29 37.1 84 20 123/70 (87) 97 Room Air 05/09/21 12:00 100 Room Air 05/09/21 12:00 71 13 130/72 (91) 99 Room Air 05/09/21 11:00 74 27 132/78 (96) 99 Room Air 05/09/21 10:00 75 14 98 Room Air 05/09/21 09:00 84 18 126/69 (88) 98 Room Air 05/09/21 08:45 100 Room Air 05/09/21 08:00 75 16 137/72 (93) 97 Room Air 05/09/21 08:00 36.8 I & O 05/10/21 07:00 Intake Total 100 ml Balance 100 ml Capillary Refill : General Appearance: No Apparent Distress, Chronically ill HEENT: Moist Mucous Membranes; No Scleral Icterus (L), No Scleral Icterus (R) Neck: Supple Respiratory: Lungs Clear Cardiovascular: Irregularly Irregular Gastrointestinal: normal bowel sounds, non tender, soft, no organomegaly Extremity: No Calf Tenderness, No Pedal Edema Neurologic/Psychiatric: Alert, Normal Mood/Affect Skin: Normal Color Results Lab Laboratory Tests 05/10/21 04:37: 05/10/21 04:48: White Blood Count 10.6, Red Blood Count 2.57L, Hemoglobin 8.2L, Hematocrit 25L, Mean Corpuscular Volume 98, Mean Corpuscular Hemoglobin 32, Mean Corpuscular Hemoglobin Concent 33, Red Cell Distribution Width 20.2H, Platelet Count 256, Mean Platelet Volume 8.9L, Immature Granulocyte % (Auto) 1, Neutrophils (%) (Auto) 90H, Lymphocytes (%) (Auto) 4L, Monocytes (%) (Auto) 4, Eosinophils (%) (Auto) 1, Basophils (%) (Auto) 0, Neutrophils # (Auto) 9.5H, Lymphocytes # (Auto) 0.5L, Monocytes # (Auto) 0.5, Eosinophils # (Auto) 0.1, Basophils # (Auto) 0.0, Immature Granulocyte # (Auto) 0.1, Neutrophils % (Manual) 85, Lymphocytes % (Manual) 8, Monocytes % (Manual) 2, Eosinophils % (Manual) 3, Band Neutrophils 2, Polychromasia SLIGHT, Macrocytosis SLIGHT, Prothrombin Time 15.7H , INR Comment 1.2, Sodium Level 134L, Potassium Level 3.6, Chloride Level 103, Carbon Dioxide Level 22, Anion Gap 9, Blood Urea Nitrogen 9, Creatinine 0.61, Estimat Glomerular Filtration Rate > 60, BUN/Creatinine Ratio 15, Glucose Level 109H, Calcium Level 7.8L, Corrected Calcium 8.6, Total Bilirubin 0.9, Aspartate Amino Transf (AST/SGOT) 22, Alanine Aminotransferase (ALT/SGPT) 15, Alkaline Phosphatase 50, Total Protein 5.4L, Albumin 3.0L Microbiology 05/07/21 MRSA Screen - Final, Complete MRSA not isolated Assessment/Plan Assessment/Plan Assessment/Plan Anemia - profound Melena Coagulopathy Hx of Atrial fibrillation Hyponatremia Hypoalbuminemia s/p EGD Pt appears to be stable and PT/INR and hemoglobin is stable. Patient had EGD performed yesterday, no intervention was initiated during the procedure, mild mucosal erthyema visualized. Patient is stable from a surgical stand point at this time. JAMIL ALATORRE DO 05/10/21 1603: Subjective Time Seen by a Provider: 12:24 Subjective/Events-last exam Pt seen and examined, states she is doing fine and ready to go home; no complaints. Review of Systems General: No Chills, No Night Sweats; Fatigue HEENT: No Head Aches, No Visual Changes Pulmonary: No Dyspnea, No Cough Cardiovascular: No: Chest Pain, Palpitations Gastrointestinal: No: Nausea, Vomiting, Abdominal Pain Objective Exam General Appearance: No Apparent Distress, Chronically ill HEENT: Moist Mucous Membranes Respiratory: Lungs Clear, No Accessory Muscle Use, No Respiratory Distress Cardiovascular: No Murmur, Irregularly Irregular Gastrointestinal: non tender, soft, no organomegaly Extremity: No Pedal Edema Assessment/Plan Assessment/Plan Assessment/Plan Anemia - profound, stable now after transfusion Melena Coagulopathy Hx of Atrial fibrillation Hyponatremia Hypoalbuminemia s/p EGD Pt appears to be stable and PT/INR and hemoglobin is stable. Patient had EGD performed yesterday, no intervention was initiated during the procedure, mild mucosal erthyema visualized. Patient is stable from a surgical stand point at this time. Supervisory-Addendum Brief Verification & Attestation Participated in pt care: history, MDM, physical Personally performed: exam, history, MDM, supervision of care Care discussed with: Medical Student Procedures: n/a Verification and Attestation of Medical Student E/M Service A medical student performed and documented this service. I then reviewed and verified all information documented by the medical student and made modifications to such information, when appropriate. I personally performed a physical exam, medical decision making and then discussed any differences between the notes and made revisions as necessary to create one note. Jamil Alatorre , 05/10/21 , 16:02 PUNEET LARSON MED STUDENT May 10, 2021 07:46 JAMIL ALATORRE DO May 10, 2021 16:03
[2021-05-10] MEDS ORDERED: CYANOCOBALAMIN INJ 1000 MCG/ML IM ONE (08:00)
[2021-05-10] MEDS ORDERED: LORATADINE (CLARITIN) 10 MG TAB PO SCH (09:00)
[2021-05-10] MEDS ORDERED: MULTIVIT W/MINERALS TAB (THERAGRAN M) PO SCH (09:00)
[2021-05-10] MEDS ORDERED: ATENOLOL 50 MG (TENORMIN) TAB PO SCH (09:00)
[2021-05-10] MEDS ORDERED: PANTOPRAZOLE 40 MG (PROTONIX) TAB PO SCH (09:00)
--- NOTE | 2021-05-10 09:42 | Physical Therapy Evaluation ---
PT Evaluation-General Medical Diagnosis Admission Date May 07, 2021 at 19:40 Medical Diagnosis: weakness, falls Onset Date: May 07, 2021 Therapy Diagnosis Therapy Diagnosis: impaired mobility, strength, endurance Height/Weight Height (Feet): 4 Height (Inches): 9.00 Weight (Pounds): 109 Weight (Ounces): 0.0 Precautions Precautions/Isolations: Fall Prevention, Standard Precautions Referral Physician: Juana Reason for Referral: Evaluation/Treatment Medical History Additional Medical History Past Medical History Surgeries: Orthopedic, Tracheostomy COPD Atrial Fibrillation Sexually Transmitted Disease: No HIV/AIDS: No Chronic Diarrhea Arthritis, Chronic Back Pain Cataract Loss of Vision: Bilateral Hearing Impairment: Hard of Hearing Oral What Type of Treatment Did You: Surgical Intervention Reviewed History: Yes Social History Home: Single Level Entry Into Home: Level Entry Prior Prior Level of Function SCALE: Activities may be completed with or without assistive devices. 1-Fyxfqtubur-xolvntt completes the activity by him/herself with no assistance f rom a helper. 5-Set-up or Clean-up Assistance-helper sets up or cleans up; patient completes activity. [place] assists only prior to or following the activity. 4-Supervision or Touching Assistance-helper provides verbal cues and/or touching/steadying and/or contact guard assistance as patient completes activity. Assistance may be provided throughout the activity or intermittently. 3-Partial/Moderate Assistance-helper does LESS THAN HALF the effort. [place] lifts, holds or supports trunk or limbs, but provides less than half the effort. 2-Substantial/Maximal Assistance-helper does MORE THAN HALF the effort. [place] lifts or holds trunk or limbs and provides more than half the effort. 9-Zbzbrnhzt-csasgt does ALL the effort. Patient does none of the effort to complete the activity. Or, the assistance of 2 or more helpers is required for the patient to complete the activity. If activity was not attempted, code reason: 7-Patient Refused. 9-Not Applicable-not attempted and the patient did not perform the activity before the current illness, exacerbation or injury. 10-Not Attempted due to Environmental Limitations-(lack of equipment, weather restraints, etc.). 88-Not Attempted due to Medical Conditions or Safety Concerns. Bed Mobility: 6 Transfers (B,C,W/C): 6 Gait: 6 Prior Device Use: SPC PT Evaluation-Current Subjective Patient standing in room with nursing, going to restroom, PT takes over, patient has no complaints of pain. Pt/Family Goals to be independent at home Objective Patient Orientation: Person, Place, Situation Attachments: Oxygen ROM/Strength ROM Lower Extremities WNL Strength Lower Extremities LLE (hip flexion 4/5, knee flexion 5/5, knee extension 5/5, dorsiflexion 5/5), RLE (hip flexion 4+/5, knee flexion 5/5, knee extension 5/5, dorsiflexion 5/5) Sensory Hearing: Functional Sensation Right Lower Extremit: Intact Sensation Left Lower Extremity: Intact Transfers Roll Left to Right (QC): 6 Sit to Lying (QC): 6 Sit to Stand (QC): 4 Chair/Lxk-ho-Wkdpq Xfer(QC): 4 Toilet Transfer (QC): 4 Gait Does the Patient Walk?: Yes Mode of Locomotion: Walk Anticipated Mode of Locomotion: Walk Walk 10 feet (QC): 4 Distance: 10'x2 Gait Assistive Device: Cane Single Point Comments/Gait Description slow but steady ambulation, patient didn't want to ambulate more than to the restroom and back to her bed, she says she is tired. Balance Sitting Static: Normal Sitting Dynamic: Normal Standing Static: Normal Standing Dynamic: Good Treatment BLE supine exercises x20 (AP, HS) Assessment/Needs Patient has impaired mobility, strength, endurance. Patient in bed post tx with nurse call, phone, tray, all needs met. Needs CGA for transfers and ambulation. Rehab Potential: Fair PT Cardiopulmonary Technologist Goals Assisted Goals PT Assisted Goals Time Frame: May 17, 2021 Roll Left & Right (QC): 6 Sit to Lying (QC): 6 Lying-Sitting on Side/Bed(QC): 6 Sit to Stand (QC): 5 Chair/Wrj-qa-Sdlbi Xfer(QC): 5 Toilet Transfer (QC): 5 Walk 10 feet (QC): 5 Walk 50ft with 2 Turns (QC): 5 PT Plan Problem List Problem List: Activity Tolerance, Functional Strength, Safety, Balance, Gait, Transfer, ROM Treatment/Plan Treatment Plan: Continue Plan of Care Treatment Plan: Education, Functional Activity Kiara, Functional Strength, Gait, Safety, Therapeutic Exercise, Transfers Treatment Duration: May 17, 2021 Frequency: 6 times per week Estimated Hrs Per Day: .25 hour per day Patient and/or Family Agrees t: Yes Safety Risks/Education Patient Education: Gait Training, Transfer Techniques, Correct Positioning, Safety Issues Teaching Recipient: Patient Teaching Methods: Demonstration, Discussion Response to Teaching: Reinforcement Needed Discharge Recommendations Plan Patient will perform bed mobility and transfer training, balance and endurance training, functional strengthening, stair training, gait training, and education, to improve functional mobility and independence at home. Therapy Discharge Recommendati: Scheduled Assistance, Home & Family, Post Acute PT Time/GCodes Time In: 825 Time Out: 835 Total Billed Treatment Time: 10 Total Billed Treatment 1 visit EVL 10' MARCIAL MCALLISTER PT May 10, 2021 09:42
[2021-05-10] MEDS ORDERED: IRON100V2 IV (11:34)
--- NOTE | 2021-05-10 11:36 | Discharge Summary ---
Discharge Summary Hospital Course Was the Problem List Reviewed?: Yes Problems/Dx: (1) Permanent atrial fibrillation (2) Essential hypertension (3) Mixed hyperlipidemia (4) Gastrointestinal hemorrhage (5) Frequent falls (6) Dementia Hospital Course Date of Admission: May 07, 2021 at 19:40 Admission Diagnosis : Family Physician/Provider: Hyacinth Arias DO Date of Discharge: 05/10/21 Discharge Diagnosis: Severe symptomatic anemia, warfarin anticoagulation, 2 prior life-threatening bleeds within 2 years Hospital Course: Hospital course: Pt had a standard hospital course after she was admitted from [facility] ER due to severe symptomatic anemia. Hgb there was 3.0, she had reversal of Warfarin with FFP. EGD performed by Dr. Alatorre showing some slight abrasion in the stomach. Sodium level was improved at 134 at discharge, she was eating and drinking well. Iron infusion was given and she will need four more doses of that so that was arranged at discharge to be done at [facility] with home health which we will restart and I will see her next Monday the at 3:00. Labs and Pending Lab Test: Laboratory Tests 05/10/21 04:37: Vitamin B12 Level [Pending] 05/10/21 04:48: White Blood Count 10.6, Red Blood Count 2.57L, Hemoglobin 8.2L, Hematocrit 25L, Mean Corpuscular Volume 98, Mean Corpuscular Hemoglobin 32, Mean Corpuscular Hemoglobin Concent 33, Red Cell Distribution Width 20.2H, Platelet Count 256, Mean Platelet Volume 8.9L, Immature Granulocyte % (Auto) 1, Neutrophils (%) (Auto) 90H, Lymphocytes (%) (Auto) 4L, Monocytes (%) (Auto) 4, Eosinophils (%) (Auto) 1, Basophils (%) (Auto) 0, Neutrophils # (Auto) 9.5H, Lymphocytes # (Auto) 0.5L, Monocytes # (Auto) 0.5, Eosinophils # (Auto) 0.1, Basophils # (Auto) 0.0, Immature Granulocyte # (Auto) 0.1, Neutrophils % (Manual) 85, Lymphocytes % (Manual) 8, Monocytes % (Manual) 2, Eosinophils % (Manual) 3, Band Neutrophils 2, Polychromasia SLIGHT, Macrocytosis SLIGHT, Prothrombin Time 15.7H, INR Comment 1.2, Sodium Level 134L, Potassium Level 3.6, Chloride Level 103, Carbon Dioxide Level 22, Anion Gap 9, Blood Urea Nitrogen 9, Creatinine 0.61, Estimat Glomerular Filtration Rate > 60, BUN/Creatinine Ratio 15, Glucose Level 109H, Calcium Level 7.8L, Corrected Calcium 8.6, Total Bilirubin 0.9, Aspartate Amino Transf (AST/SGOT) 22, Alanine Aminotransferase (ALT/SGPT) 15, Alkaline Phosphatase 50, Total Protein 5.4L, Albumin 3.0L Microbiology 05/07/21 MRSA Screen - Final, Complete MRSA not isolated Home Meds Active Venofer (Iron Sucrose Complex) 200 Mg/10 Ml Vial 200 Mg IV Q48H@09 Give Venofer 200mg IV for four doses starting 05/12/21 at [facility] Amoxicillin 500 Mg Tablet 500 Mg PO QID 7 Days Hydrocodone/Acetaminophen 5 MG/325 MG TAB (Hydrocodone/Acetaminophen) 1 Each Tablet 1 Each PO Q4H Reported Aspir 81 (Aspirin) 81 Mg Tablet. 81 Mg PO DAILY Flonase Allergy Relief (Fluticasone Propionate) 9.9 Ml [place].susp 2 [place] NSEACH DAILY Augmentin 875-125 Tablet (Amoxicillin/Potassium Clav) 1 Each Tablet 1 Each PO BID 10 Days started 08/15/18 Warfarin Sodium 5 Mg Tablet 7.5 Mg PO MOTUWETH take 1 1/2 of 5mg tab Warfarin Sodium 5 Mg Tablet 5 Mg PO SUFRSA Atenolol 50 Mg Tablet 50 Mg PO DAILY Loratadine 10 Mg Tablet 10 Mg PO DAILY Fish Oil 1,000 mg Capsule ([place] 3 Polyunsat Fatty Acids) 1,000 Mg Cap 1,000 Mg PO HS Caltrate 600 + D Tablet (Calcium Carbonate/Vitamin D3) 1 Each Tablet 1 Each PO DAILY Vitamin B12 (Cyanocobalamin (Vitamin B-12)) 2,500 Mcg Tablet 2,500 Mcg PO DAILY Multi-Vitamin Daily (Multivitamin) 1 Each Tablet 1 Each PO DAILY Lisinopril 10 Mg Tablet 10 Mg PO DAILY Simvastatin 40 Mg Tablet 40 Mg PO HS Omeprazole 40 Mg Capsule. 40 Mg PO DAILY Assessment/Pt Instructions Dr. Arias in 1 week Discharge Planning: <30 minutes discharge planning Discharge Physical Examination Vital Signs Vital Signs Date Time Temp Pulse Resp B/P (MAP) Pulse Ox O2 Delivery O2 Flow Rate FiO2 05/10/21 08:19 38.0 109 20 144/82 (102) 93 Room Air 05/08/21 01:01 21 General Appearance: No Apparent Distress, WD/WN, Chronically ill, Thin Respiratory: Lungs Clear Cardiovascular: Irregularly Irregular Neurologic/Psychiatric: Alert, Oriented x3, Disoriented Allergies: Coded Allergies: No Known Drug Allergies (Unverified , 08/16/18) Discharge Summary Date of Admission May 07, 2021 at 19:40 Date of Discharge Discharge Date: May 10, 2021 Admission Diagnosis GIB bleed Discharge Diagnosis Assessment: Severe anemia Blood transfusion required Alcoholism in denial Cirrhosis Dementia History of tongue cancer status post reconstruction at Chronic hyponatremia Chronic atrial fibrillation Previously on warfarin and this is the third life-threatening bleed so no longer a candidate Plan: Transfer to fourth floor Iron infusion PT and OT (1) Permanent atrial fibrillation Assessment & Plan: She has had issues with chronic anemia possibly due to recurrent gastrointestinal hemorrhaging as well as memory loss and frequent falls. She may not be a good candidate for ongoing oral anticoagulation even with a DOAC. The upper endoscopy did not reveal any source of hemorrhaging. I will wait until she has another 24 hours of a stable hemoglobin level before considering any sort of anticoagulation. If her hemoglobin is stable tomorrow, I will consider starting her on apixaban. When she recovers from this illness, we may need to consider evaluation for a Watchman device. It appears as though she was taking aspirin and warfarin at home. The aspirin has been discontinued. Beta-hieu has been restarted for rate control. (2) Essential hypertension Assessment & Plan: Atenolol has been restarted and blood pressures are under g ood control. (3) Mixed hyperlipidemia Assessment & Plan: Simvastatin has been restarted. I will add a lipid panel to the blood from this morning. (4) Gastrointestinal hemorrhage Assessment & Plan: As above, she underwent an upper endoscopy that did not show any source of hemorrhaging. Anticoagulation should be held for at least another 24 hours. (5) Frequent falls Assessment & Plan: Given her frequent falls, she may not be a good candidate for ongoing use of oral anticoagulation as outlined above. (6) Dementia Assessment & Plan: Her dementia may all also increase the potential risk of complications from chronic anticoagulation. This would be another reason to consider a Watchman device down the road. HYACINTH ARIAS DO May 10, 2021 11:36
--- NOTE | 2021-05-10 11:36 | D/C HH Face to Face Order ---
D/C Face to Face Orders Reconcile Patient Problems Problems Reviewed?: Yes Instructions for Patient [facility] Home Health Patient Instructions/FollowUp: Dr Arias as scheduled Physician to follow Patient: Juana Discharge Diet for Home: No Restrictions Patient Problems: Anemia GIB Patient Data-Allergies,Ht & Wt Patient Allergies: Coded Allergies: No Known Drug Allergies (Unverified , 08/16/18) Height (Feet): 4 Height (Inches): 9.00 Weight (Pounds): 109 Weight (Ounces): 0.0 Home Health Need/Face to Face Date of Face to Face: May 10, 2021 Clinical Findings: Generalized weakness and fatigue, Instability, Muscle weakness, Shortness of breath, Unsteady gait I have seen Pt [id number]: Yes Discharged To: Home Diagnosis/Conditions: Anemia GIB Patient is Homebound due to: CognItive deficits, Mann fall risk due to instabilty, Muscle weakness Homebound Status Due to the above stated illness, injury or surgical procedure (medical condition or diagnosis) and associated clinical findings, the patient is homebound because of his/her inability to leave home except with aid of a supportive device and/or person AND leaving the home requires a considerable and taxing effort or is medically contraindicated. Pt req the following assistanc: Walker Home Health Nursing Orders Home Health Services Order: Nursing Services, Group Home Supervisor-Evaluate & Treat, Physical Therapy-Evaluate & Treat Home Health Infusion Therapy Line Start Date: May 07, 2021 Certify Stmt I certify that this patient is under my care and that I, a nurse practitioner or a physician; a cleaner assistant working with me, had a face to face encounter that - meets the physician face to face encounter requirements with this patient as dated. JUVENTINO ARIAS DO May 10, 2021 11:36
--- NOTE | 2021-05-10 12:21 | Progress Note ---
ANITA GAINES MED STUDENT 05/10/21 1221: Progress Note CC: Doing well, no complaints. Denies bloody stools. PE: general: alert, no distress respiratory: CTAB, no respiratory distress CV: irregularly irregular, no murmur abdomen: soft, nontender extremity: nontender, no edema neuro/psych: alert, oriented normal affect Assessment/Plan: GI bleed EGD yesterday showed mucosal erythema, no interventions Discontinue warfarin Anemia-improving Hgb stable Receiving Venofer infusions Chronic Afib Dr. Bray consulted Chronic hyponatremia Alcoholism Stable for discharge with close follow-up and home health. HYACINTH HICKEY DO 05/10/214: Supervisory-Addendum Brief Verification & Attestation Participated in pt care: history, MDM, physical Personally performed: exam, history, MDM, supervision of care Care discussed with: Medical Student Procedures: n/a Results interpretation: Verified all documentation Verification and Attestation of Medical Student E/M Service A medical student performed and documented this service in my presence. I reviewed and verified all information documented by the medical student and made modifications to such information, when appropriate. I personally performed the physical exam and medical decision making. Hyacinth Hickey, May 10, 2021,21:24 ANITA GAINES MED STUDENT May 10, 2021 12:21 HYACINTH HICKEY DO May 10, 2021 21:24
[2021-05-10 13:52] VITALS: BP 134/76
--- NOTE | 2021-05-10 15:04 | Occupational Therapy Eval ---
OT Evaluation-General/PLF Medical Diagnosis Admission Date May 07, 2021 at 19:40 Medical Diagnosis: weakness, falls/GI bleed Onset Date: May 07, 2021 Therapy Diagnosis Therapy Diagnosis: Weakness Height/Weight Height (Feet): 4 Height (Inches): 9.00 Weight (Pounds): 109 Weight (Ounces): 0.0 Precautions Precautions/Isolations: Fall Prevention, Standard Precautions Referral Physician: Juana Referral Reason: Activity Tolerance, Self Care, Evaluation/Treatment, Strengthening/ROM Medical History Pertinent Medical History: Atrial Fib, Dementia Additional Medical History Alcohol abuse, decreased vision Current History Pt. fell at home. Came in with hemoglobin of 3.6. Reviewed History: Yes Social History Home: Single Level Current Living Status: Spouse Entry Into Home: Level Entry ADL-Prior Level of Function SCALE: Activities may be completed with or without assistive devices. 1-Rewjprrkxj-ljzbgpb completes the activity by him/herself with no assistance from a helper. 5-Set-up or Clean-up Assistance-helper sets up or cleans up; patient completes activity. [place] assists only prior to or following the activity. 4-Supervision or Touching Assistance-helper provides verbal cues and/or touching/steadying and/or contact guard assistance as patient completes activity. Assistance may be provided throughout the activity or intermittently. 3-Partial/Moderate Assistance-helper does LESS THAN HALF the effort. [place] lifts, holds or supports trunk or limbs, but provides less than half the effort. 2-Substantial/Maximal Assistance-helper does MORE THAN HALF the effort. [place] lifts or holds trunk or limbs and provides more than half the effort. 3-Viyrkdhth-vrovvw does ALL the effort. Patient does none of the effort to complete the activity. Or, the assistance of 2 or more helpers is required for the patient to complete the activity. If activity was not attempted, code reason: 7-Patient Refused. 9-Not Applicable-not attempted and the patient did not perform the activity before the current illness, exacerbation or injury. 10-Not Attempted due to Environmental Limitations-(lack of equipment, weather restraints, etc.). 88-Not Attempted due to Medical Conditions or Safety Concerns. ADL PLOF Comments Pt. states that she is independent with ADLs. She lives in [place] with her spouse. She assists him with cooking/cleaning. She only takes sponge baths. Self Care: Independent Functional Cognition: Unknown OT Current Status Subjective No pain reported. Mental Status/Objective Patient Orientation: Person, Place Current Upper Extremity ROM WFL ADL-Treatment Eating (QC): 6 Upper Body Dressing (QC): 5 Lower Body Dressing (QC): 5 On/Off Footwear (QC): 6 Other Treatments Pt. in bed. Agrees to get dressed. Pt. going home. Transferred supine-sit with Mod I. Pt. dressed self after set up with no balance issues. Donned slippers independently. Transferred back to bed. All needs met. No further OT needs at this time. Education OT Patient Education: Correct positioning, Modified ADL techniques, Progress toward Goal/Update tx plan, Purpose of tx/functional activities, Reviewed prec autions, Rehab process, Transfer techniques Teaching Recipient: Patient Teaching Methods: Demonstration, Discussion Response to Teaching: Verbalize Understanding, Return Demonstration OT Long-Term Goals Ssn/Ssbn Weapons Equipment Operator Goals Time Frame: May 10, 2021 Additional Goals: 1-Demonstrate ADL Tasks, 2-Verbalize Understanding 1=Demonstrate adherence to instructed precautions during ADL tasks. 2=Patient will verbalize/demonstrate understanding of assistive devices/modifications for ADL. 3=Patient will improve strength/tolerance for activity to enable patient to perform ADL's. OT Education/Plan Problem List/Assessment Assessment: No Skilled OT Needs ID'd Discharge Recommendations Plan/Recommendations: Discontinue OT Therapy Discharge Recommendati: Home & Family Patient/Family Goals Pt. able to don clothing with set up. Pt. seen one time for OT. No LOB noted. Note that pt. at baseline level. Pt. leaving today. No further OT needs warranted at this time. Treatment Plan/Plan of Care Treatment,Training & Education: Yes . Plan of Care: OTHER Treatment Duration: May 10, 2021 Frequency: 1 time per week Estimated Hrs Per Day: .25 hour per day Agreement: Yes Rehab Potential: Good Time/GCodes Start Time: 11:30 Stop Time: 11:45 Total Time Billed (hr/min): 15 Billed Treatment Time 1, EVL Discharge pt. AILYN BATISTA OT May 10, 2021 15:03
== END 2021-05-10 13:52 | disposition home health service (06) | DRG 811 ==
LOC: ICU 19:40 → 4TH 05-09 15:16
PROVIDERS: ADMIT Family Medicine; ATTEND Internal Medicine
PROC: 0DJ08ZZ Inspection of Upper Intestinal Tract, Via Natural or Artificial Opening Endoscopic (ICD-10-PCS; principal; 2021-05-09 10:20)
DX: D62 Acute posthemorrhagic anemia (principal); K29.71 Gastritis, unspecified, with bleeding; K92.1 Melena; D68.32 Hemorrhagic disorder due to extrinsic circulating anticoagulants; E87.1 Hypo-osmolality and hyponatremia; I48.21 Permanent atrial fibrillation; T45.515A Adverse effect of anticoagulants, initial encounter; Q27.33 Arteriovenous malformation of digestive system vessel; K44.9 Diaphragmatic hernia without obstruction or gangrene; Z20.822 Contact with and (suspected) exposure to COVID-19; F44.9 Dissociative and conversion disorder, unspecified; Z79.01 Long term (current) use of anticoagulants; E88.09 Other disorders of plasma-protein metabolism, not elsewhere classified; I10 Essential (primary) hypertension; E78.5 Hyperlipidemia, unspecified; Z85.810 Personal history of malignant neoplasm of tongue; M19.91 Primary osteoarthritis, unspecified site; H54.7 Unspecified visual loss; H91.90 Unspecified hearing loss, unspecified ear; F03.90 Unspecified dementia, unspecified severity, without behavioral disturbance, psychotic disturbance, mood disturbance, and anxiety; F10.20 Alcohol dependence, uncomplicated; I08.3 Combined rheumatic disorders of mitral, aortic and tricuspid valves; K74.60 Unspecified cirrhosis of liver; Z87.891 Personal history of nicotine dependence; Z79.82 Long term (current) use of aspirin
CPT/HCPCS: 36415; 80048; 80053; 80061; 80076; 82140; 82607; 83735; 84100; 85007; 85025; 85027; 85610; 86850; 86900; 86901; 86920; 87081; 87636; 93306

== ENCOUNTER → 2023-08-28 | Outpatient (CLI) | payer MEDICARE ==
[~2023-08-28] VITALS: Ht 142.2 cm; Wt 35.0 kg
[~2023-08-28] MED LIST changes: +FURO40TA4 PO; +HYDR15SO11 PO; -HYDR15SO8 PO; +IRON100V2 IV; +LEVO25CA4 PO; +SPIR25TA5 PO
== END | disposition home or self-care (01) ==
LOC: PREOP 12:43
PROVIDERS: ATTEND Surgery
DX: Z01.818 Encounter for other preprocedural examination (principal)

== ENCOUNTER 2023-08-30 09:06 | Day surgery (SDC) | payer MEDICARE ==
[~2023-08-30] VITALS: Ht 142.2 cm; Wt 35.0 kg
[2023-08-30] VITALS (8 sets, daily range): BP systolic 72–136; BP diastolic 41–84
[2023-08-30] MEDS ORDERED: LACTATED RINGERS 1,000 ML 1,000 ML IV PRN (09:30)
[2023-08-30] MEDS ORDERED: ceFAZolin INJECTION 2,000 MG in NS (IVPB) 50 ML 50 ML IV ONE (09:30)
[2023-08-30] MEDS ORDERED: HEParin (CENTRAL IV FLUSH) 500 UNIT/5 ML SYR ONE (11:03)
[2023-08-30] MEDS ORDERED: 0.9% SODIUM CHLORIDE PF INJ 20 ML VIAL ONE (11:03)
[2023-08-30] MEDS ORDERED: LIDOCAINE 2% w/EPI 1:100,000 20 ML VIAL ONE (11:03)
--- NOTE | 2023-08-30 12:18 | Progress Note-Pre Operative ---
Pre-Operative Progress Note Date H&P Reviewed: Aug 30, 2023 Time H&P Reviewed: 12:18 History & Physical: H&P Reviewed, Patient Examed, No changes noted Pre-Operative Diagnosis: squamous cell carcinoma tongue MARY FERRARI DO Aug 30, 2023 12:18
[2023-08-30] MEDS ORDERED: PHENYLEPHRINE 100 MCG/ML 10 ML (ANESTHESIA) SYR ONE (13:11)
--- NOTE | 2023-08-30 13:13 | Discharge Inst-Simple/Standard ---
Discharge Inst-Standard Patient Instructions/Follow Up Plan of Care/Instructions/FU: 2 weeks Debbie Ice pack on 15 min and off 30 min and repeat for first 48 hours. Activity as Tolerated: No Discharge Diet: Regular Diet Other Inst to Patient Follow up Appt: Make appointment for 2 week. Instructions: No lifting greater than 10 pounds. No strenuous activity. May shower in 24 hours, no tub bath or soaking. Use incentive spirometer at home as directed. No Smoking Skin/Wound Care: You have special glue over your incision that will fall off on it's own. Ice pack on 15 min and off 30 min and repeat for first 48 hours. This reduces swelling and discomfort. Symptoms to Report: Appetite Changes, Extremity Discoloration, Numbness/Tingling, Swelling Increased, Bleeding Excessive, Eyesight Changes, Pain Increased, Urine Color Change, Constipation(Persistent), Fever over 101 degree F, Pain/Pressure in chest, Urinating Difficulty, Cough Up/Vomit Blood, Heart Beat Irreg/Pounding, Pain/Pressure in jaw, Vaginal Bleeding Increase, Cramps in feet or legs, Lightheadedness, Pain/Pressure in shoulder, Diarrhea(Persistent), Memory Changes Suddenly, Questions/Concerns, Weight gain consecutive days, Dizziness/Fainting, Nausea/Vomiting, Shortness of Breath, Weight gain over 2 pounds If questions or concerns contact your physician Or seek help at emergency department. MARY FERRARI DO Aug 30, 2023 13:13
--- NOTE | 2023-08-30 13:14 | Anesthesia-General Post-Op ---
MAC Patient Condition Mental Status/LOC: Same as Preop Cardiovascular: Satisfactory Nausea/Vomiting: Absent Respiratory: Satisfactory Pain: Controlled Complications: Absent Post Op Complications Complications None Follow Up Care/Instructions Patient Instructions None needed. Anesthesiology Discharge Order Discharge Order Patient is doing well, no complaints, stable vital signs, no apparent adverse anesthesia problems. No complications reported per nursing. GINETTE THOMAS CRNA Aug 30, 2023 13:14
--- NOTE | 2023-08-30 13:14 | Progress Note-Post Operative ---
Post-Operative Progess Note Surgeon (s)/Cardiology Clinical Consultant (s) Surgeon MARY FERRARI DO Cardiology Clinical Consultant: na Pre-Operative Diagnosis squamous cell carcinoma tongue Post-Operative Diagnosis same Procedure & Operative Findings Date of Procedure 08/30/23 Procedure Performed/Findings PROCEDURE: [Right] internal jugular port placement using ultrasound guidance. COMPLICATIONS: None. INDICATIONS: The patient is a 78 year old female with squmous cell carcinoma of tongue. Patient understands the risks and benefits of port placement and wished to proceed with the procedure. Consent was signed on the chart. PROCEDURE: The patient was taken to the operating suite, was prepped and draped in the sterile fashion. A surgical pause was performed. Ultrasound was used to locate the internal jugular vein. Once located anesthetic was infiltrated above it. Using micro-access kit, the right internal jugular vein was accessed using u/s guidance. Dark nonpulsatile blood was withdrawn. The wire was inserted. Fluoroscopy assured proper placement. The needle was removed. The micro-access dilator was advanced over the wire and the wire was removed. The regular wire was inserted and fluoroscopy assured proper placement. The wire was then secured. Local anesthetic was used to anesthetize from the neck for tunneling down to the right chest and for pocket creation. A 15 blade scalpel was used to make an incision over the right chest. Cautery was used to dissect down to the pectoral fascia. A pocket was created with blunt dissection. The dilator sheath was then advanced over the wire under fluoroscopy and the dilator and wire were removed. The [place] catheter was inserted through the sheath and the sheath was then removed. The [place] wire was removed. The catheter was then tunneled to the right chest pocket. Fluoroscopy was used to cut to length and this was then attached to the port which was then placed within the pocket. The port was then accessed without difficulty. It was then flushed with saline and then heparin. The subcutaneous tissues were then reapproximated using 3-0 Vicryl. The areas were then washed and dried. Skin Affix was placed over incision. The insertion point of the neck Skin Affix was placed over the incision. The patient tolerated the procedure well without complication and was taken to recovery room in stable condition. Chest x-ray is pending. Anesthesia Type mac c local Estimated Blood Loss Estimated blood loss (mL): minimal Specimens/Packing Specimens Removed MARY Landers DO Aug 30, 2023 13:14
[2023-08-30] MEDS ORDERED: morphine INJ 10 MG/ML 1ML (SYR OR VIAL) IVP ONE (13:15)
[2023-08-30] MEDS ORDERED: fentaNYL INJECTION 100 MCG/2 ML VIAL IVP ONE ×2 (13:15→18:00)
[2023-08-30] MEDS ORDERED: MEPERIDINE INJ 50 MG/ML VIAL IVP ONE ×2 (13:15→18:00)
--- NOTE | 2023-08-30 13:49 | Diagnostic Imaging Report ---
Indication: Port placement. A right chest port catheter via an IJ approach has its distal tip overlying the mid to lower SVC. There is no pneumothorax. There is likely atelectasis or nonspecific consolidation partly involving the right middle lobe. Radiographic follow-up to confirm reexpansion and clearance recommended within one to 2 weeks' time. Impression: Port catheter placed in good position. No pneumothorax. Right pericardiac density warrants radiographic follow-up to resolution. Dictated by: Dictated on workstation # [id number]
[2023-08-30] MEDS ORDERED: ONDANSETRON INJECTION 4 MG/2 ML (SDV) IVP PRN (18:00)
--- NOTE | 2023-09-06 15:58 | Diagnostic Imaging Report ---
INDICATION: Port-A-CATH placement COMPARISON: None available. IMPRESSION: 2 spot images show placement of right IJ Port-A-Cath. Air Kerma is 0.95 mGy. Please see procedure report for more details. Dictated by: Dictated on workstation # [id number]
== END 2023-08-30 16:00 | disposition home or self-care (01) ==
LOC: SDC 09:06
PROVIDERS: ATTEND Surgery
DX: C02.9 Malignant neoplasm of tongue, unspecified (principal); Z87.891 Personal history of nicotine dependence
CPT/HCPCS: 36561; 71045; 76000; 87081; C1788

== ENCOUNTER → 2023-09-04 | Outpatient (CLI) | payer MEDICARE ==
[2023-09-04] MEDS: IOHEXOL 350 MG/ML 100 ML (OMNIPAQUE 350) VIAL IV ONE (10:19)
[2023-09-04] MEDS: NS 100 ML (IVPB) BAG IV ONE (10:19)
--- NOTE | 2023-09-04 17:15 | Diagnostic Imaging Report ---
EXAMINATION: CT neck and chest with and without contrast. TECHNIQUE: Precontrast images were obtained of the neck and chest. Multiple contiguous axial images were obtained through the neck and chest after administration of intravenous contrast. Auto Exposure Controls were utilized during the CT exam to meet ALARA standards for radiation dose reduction. HISTORY: Floor mouth cancer. COMPARISON: CT of the neck on 06/12/2018. FINDINGS: Unchanged 0.3 cm pulmonary nodule within the right upper lobe. No new or enlarging pulmonary nodule. No lymphadenopathy within the chest. Similar marked enlarged heart. No pericardial effusion. Moderate calcified coronary artery atherosclerosis. Calcifications of the mitral valve leaflets. No lymphadenopathy within the chest. No pericardial effusion. Included views of the abdomen demonstrates no significant abnormality. There is a new soft tissue thickening within the right aryepiglottic fold (image 43 series 6). No new or enlarging lymph nodes identified. Postsurgical changes from prior bilateral lymph node resection. No lytic or sclerotic lesions within the visualized osseous structures. IMPRESSION: New mucosal lesion involving the right aryepiglottic fold may represent treatment related changes or tumor recurrence. No new or enlarging lymph nodes identified. No evidence of metastatic disease within the chest. Redemonstration of marked cardiomegaly with calcifications of the mitral valve leaflets. Recommend correlation with echocardiogram to evaluate for mitral valve stenosis. Dictated by: Dictated on workstation # [id number]
== END ==
LOC: RAD 09:14
PROVIDERS: ATTEND Internal Medicine Hematology & Oncology
DX: C02.9 Malignant neoplasm of tongue, unspecified (principal); I51.7 Cardiomegaly
CPT/HCPCS: 70491; 71260

== ENCOUNTER 2023-09-11 08:22 | Outpatient (RCR) | payer MEDICARE ==
[2023-09-04 09:10] LABS: BASOPHILS % (AUTO) 0 % (0-10); EOSINOPHILS # (AUTO) 0.1 10^3/uL (0.0-0.3); EOSINOPHILS % (AUTO) 1 % (0-10); HEMATOCRIT 38 % (35-52); HEMOGLOBIN 12.2 g/dL (11.5-16.0); LYMPHOCYTES # (AUTO) 0.8 10^3/uL (1.0-4.0); LYMPHOCYTES % (AUTO) 19 % (12-44); MEAN CORPUSCULAR HEMOGLOBIN 31 pg (25-34); MEAN CORPUSCULAR HGB CONC 32 g/dL (32-36); MEAN CORPUSCULAR VOLUME 97 fL (80-99); MEAN PLATELET VOLUME 8.6 fL (9.0-12.2); MONOCYTES # (AUTO) 0.2 10^3/uL (0.0-1.0); MONOCYTES % (AUTO) 6 % (0-12); NEUTROPHILS % (AUTO) 74 % (42-75); PLATELET COUNT 202 10^3/uL (130-400)
[2023-09-04 09:26] LABS: ALBUMIN 3.9 GM/DL (3.2-4.5); BILIRUBIN,TOTAL 0.6 MG/DL (0.1-1.0); CALCIUM 9.2 MG/DL (8.5-10.1); CREATININE SERUM 0.59 MG/DL (0.60-1.30); POTASSIUM 3.7 MMOL/L (3.6-5.0); TOTAL PROTEIN 7.8 GM/DL (6.4-8.2)
[~2023-09-11] VITALS: Ht 142.2 cm; Wt 35.2 kg
[~2023-09-11 08:22] MED LIST changes: +CARBOPLATIN IV SCH; +D5W IV SCH; +FAMOTIDINE INJ 20MG/2ML VIAL IV SCH; +FOSAPREPITANT (CANCER CENTER) 150 MG in NS (IVPB) CANCER CENTER ONLY 150 ML IV SCH; +HEParin (CENTRAL IV FLUSH) 500 UNIT/5 ML SYR IV PRN; +NORMAL SALINE IV SCH; +NS IV 1000 ML (CANCER CTR) IV SCH; +PACLITAXEL IV SCH; +PALONOSETRON HCL 0.25 MG, dexAMETHasone sodium phosphate 10 MG in NS (IVPB) 50 ML 50 ML IV SCH; +PEMBROLIZUMAB 200 MG in NS (IVPB) 50 ML 50 ML IV SCH; +diphenhydrAMINE 25 MG TABLET PO SCH
[2023-09-11 08:53] VITALS: BP 116/58
[2023-09-11 09:10] LABS: BASOPHILS % (AUTO) 0 % (0-10); EOSINOPHILS # (AUTO) 0.1 10^3/uL (0.0-0.3); EOSINOPHILS % (AUTO) 1 % (0-10); HEMATOCRIT 34 % (35-52); LYMPHOCYTES # (AUTO) 0.8 10^3/uL (1.0-4.0); LYMPHOCYTES % (AUTO) 15 % (12-44); MEAN CORPUSCULAR HEMOGLOBIN 32 pg (25-34); MEAN CORPUSCULAR HGB CONC 32 g/dL (32-36); MEAN CORPUSCULAR VOLUME 98 fL (80-99); MEAN PLATELET VOLUME 8.8 fL (9.0-12.2); MONOCYTES # (AUTO) 0.4 10^3/uL (0.0-1.0); MONOCYTES % (AUTO) 8 % (0-12); NEUTROPHILS # (AUTO) 4.2 10^3/uL (1.8-7.8); NEUTROPHILS % (AUTO) 77 % (42-75); PLATELET COUNT 216 10^3/uL (130-400); WHITE BLOOD COUNT 5.5 10^3/uL (4.3-11.0)
[2023-09-11 09:27] LABS: ALBUMIN 3.7 GM/DL (3.2-4.5); BILIRUBIN,TOTAL 0.7 MG/DL (0.1-1.0); CALCIUM 8.7 MG/DL (8.5-10.1); CREATININE SERUM 0.59 MG/DL (0.60-1.30); POTASSIUM 3.7 MMOL/L (3.6-5.0); TOTAL PROTEIN 7.3 GM/DL (6.4-8.2)
== END 2023-09-21 | disposition home or self-care (01) ==
LOC: ONC 08:22
PROVIDERS: ATTEND Internal Medicine Hematology & Oncology
DX: Z51.11 Encounter for antineoplastic chemotherapy (principal); C01 Malignant neoplasm of base of tongue; E78.5 Hyperlipidemia, unspecified
CPT/HCPCS: 36415; 36591; 80053; 84443; 85025; 96367; 96375; 96413; 96415; 96417; 99204